=== PATIENT | male | born 1960 | race Caucasian/White ===

== ENCOUNTER 2017-05-08 14:44 | Emergency (ER) | payer OTHER ==
[~2017-05-08] VITALS: Ht 170.2 cm; Wt 149.2 kg
[~2017-05-08 14:44] MED LIST: ALLO300T2 PO; AMIO200T4 PO; AMOX875T PO; ASPI-435 PO; ATOR-24 PO; CHOL100027 PO; CRG25 PO; HYDR-5688 PO; LEVO100T7 PO; NITR0.4S UT; OFLO0.3D4 OTB; WARF5TAB90 PO
[2017-05-08 14:54] VITALS: TEMP 37.3; Ht 170.2 cm; Wt 149.2 kg
[2017-05-08] MEDS ORDERED: AMOX875T PO (17:09)
--- NOTE | 2017-05-08 17:10 | EMERGENCY ROOM VISIT NOTE ---
History Report prepared by Martha: Katherine Rodriguez Under the Supervision of: Dr. Sony Stubbs D.O. First contact with patient: 16:55 Chief Complaint: HEADACHE Stated Complaint: HOLLAND, COLD, FATIGUE History of Present Illness The patient is a 56 year old male who presents to the Emergency Room with complaints of a persistent headache for the past week. He currently rates his discomfort as a 2/10 in severity. The patient states that he has been battling sinus congestion and a runny nose recently. He states that he has additionally had a sore throat. The patient states that his symptoms were improving, but notes that he developed a massive headache that has worsened with bending and coughing. He states that today he felt diaphoretic and weak. The patient states that the last time he felt this way he went into atrial fibrillation. He states that he consulted his PCP today and was instructed to come to the emergency department for further evaluation and treatment. The patient states that he is on Coumadin and states that he has missed a few doses of his Coumadin. He denies being on any antibiotics for his congestion. The patient denies any chest pain. Source of History: patient Onset: past week Position: head Symptom Intensity: 2/10 Timing: other (persistent) Modifying Factors (Worsening): other (coughing and bending over) Associated Symptoms: + diaphoresis, + sorethroat, + weakness, No chest pain Note: Associated Symptoms: sinus congestion, runny nose Review of Systems See HPI for pertinent positives & negatives. A total of 10 systems reviewed and were otherwise negative. Past Medical & Surgical Medical Problems: (1) Anticoagulants,Lt,Current Use (2) Anxiety State Nos (3) Cardiomegaly (4) Cervicalgia (5) Chr Ischemic Hrt Dis Nos (6) Chronic Renal Failure (7) Coronary Atherosclerosis Of [place] Coronary Vessel (8) Depressive Disorder Nec (9) Gout (10) Hypertension Nos (11) Idiopathic cardiomegaly (12) Lumbar Disc Displacement (13) LV ANEURYSM (14) Nephrolithiasis (15) Obesity, morbid, BMI 40.0-49.9 (16) Obstructive Sleep Apnea (Adult) (Pediatric) (17) Old Myocardial Infarct (18) Pure Hypercholesterolem (19) Sleep apnea Family History DEMENTIA MOTHER LUNG CANCER FATHER Social History Smoking Status: Never Smoker Alcohol Use: none Marital Status: single Housing Status: lives with family Occupation Status: unemployed Current/Historical Medications Scheduled Allopurinol (Zyloprim), 300 MG PO DAILY Amiodarone Hcl (Cordarone), 200 MG PO DAILY Amoxicillin & Pot Clavulanate (Augmentin 875-125 mg), 875 MG PO BID Aspirin (Aspirin 81), 81 MG PO DAILY Atorvastatin (Lipitor), 40 MG PO DAILY Carvedilol (Carvedilol), 25 MG PO BID Cholecalciferol (Vitamin D 1000 Unit), 1,000 INTER.UNIT PO DAILY Levothyroxine Sodium (Levothyroxine Sodium), 1 TAB PO DAILY Nitroglycerin (Nitrostat), 0.4 MG UT PRN Ofloxacin (Otic) (Floxin Otic), 10 DROPS OTB BID Warfarin Sodium (Coumadin), 5 MG PO 5XWK Warfarin Sodium (Coumadin), 7.5 MG PO 2XWK Scheduled PRN Hydrocodone/Acetaminophen 5MG/325MG (Leoti 5MG/325MG), 1 TABLET PO Q4 PRN for Pain Allergies Coded Allergies: No Known Allergies (Verified Allergy, Unknown, 07/18/05) Physical Exam Vital Signs Date Time Temp Pulse Resp B/P (MAP) Pulse Ox O2 Delivery O2 Flow Rate FiO2 05/08/17 14:54 37.3 85 16 180/87 92 Room Air Physical Exam CONSTITUTIONAL/VITAL SIGNS: Reviewed / noted above. GENERAL: Non-toxic in appearance. INTEGUMENTARY: Warm, dry, and [place]. HEAD: Mild tenderness to percussion of the right frontal sinus. EYES: without scleral icterus or trauma. ENT/OROPHARYNX: clear and moist. LYMPHADENOPATHY/NECK: Is supple without lymphadenopathy or meningismus. RESPIRATORY: Lungs clear and equal. CARDIOVASCULAR: Regular rate and rhythm. GI/ABDOMEN: Soft and nontender. No organomegaly or pulsatile mass. No rebound or guarding. Normal bowel sounds. EXTREMITIES: Warm and well perfused. BACK: No CVA tenderness. NEUROLOGICAL: Intact without focal deficits. PSYCHIATRIC: normal affect. MUSCULOSKELETAL: Normally developed with good muscle tone. Medical Decision & Procedures ED Course 1655: Previous medical records were reviewed. The patient was evaluated in room A11B. A complete history and physical examination was performed. I discussed all the exam findings with him and I discussed the treatment plan. He verbalized complete understanding and agreement. He is ready to go home. Medical Decision Differential includes: Acute intracranial bleed, trauma, meningitis, encephalitis, increased intracranial pressure, mass or mass effect, facial or dental infection, temporal arteritis, CVA, TIA, acute hypertensive emergency, sinusitis, and carbon monoxide exposure. Medication Reconciliation: I attest that I have personally reviewed the patient' s current medication list. Patient was found to have a slightly elevated blood pressure due to circumstances. I do not believe that the patient requires hypertension monitoring. This is a 56-year-old male who presents to the ED with a chief complaint of a frontal headache. The patient states that he has had some sinus congestion for about 6 days. He also reports having a sore throat. The patient states that it seemed to be worse in the frontal region. The patient states he has not been taking his medication as he should for the past several days. He was worried about being in A. fib. He has a history of this. He denies any other significant symptoms. The patient's physical exam was unremarkable with exception of some posterior oropharyngeal erythema and some tenderness to percussion over the right frontal sinus. The patient's heart is regular rate and rhythm on auscultation confirms this as well. He is clinically not in A. fib. The patient was offered testing including a CT scan of the brain and sinuses but declined this. He states that he would just prefer to be placed on antibiotic and discharge. The patient was given a prescription for Augmentin. He is felt to be stable for discharge. Impression Primary Impression: Acute sinusitis Scribe Attestation The scribe's documentation has been prepared under my direction and personally reviewed by me in its entirety. I confirm that the note above accurately reflects all work, treatment, procedures, and medical decision making performed by me. Departure Information Dispostion Home / Self-Care Prescriptions Amoxicillin & Pot Clavulanate (Augmentin 875-125 mg) 1 Tab Tab 875 MG PO BID, #20 TAB Prov: Sony Stubbs D.O. 05/08/17 Referrals Titi Rodriguez M.D. (PCP) Patient Instructions My [facility] Additional Instructions Augmentin as prescribed. Take Tylenol/acetaminophen as needed for pain. Follow-up with your doctor for further care and evaluation in 1-2 days. Return to the emergency department for worsening or new symptoms or any concerns. You have been examined and treated today on an emergency basis only. This is not a substitute for, or an effort to provide, complete comprehensive medical care. It is impossible to recognize and treat all injuries or illnesses in a single emergency department visit. It is therefore important that you follow up closely with your doctor. Call as soon as possible for an appointment.
[2017-05-08 17:24] VITALS: BP 154/102; PULSE 81; O2SAT 93
[2017-05-08] MEDS ORDERED: ASPI81TA28 PO (17:25)
[2017-05-08] MEDS ORDERED: CARV25TA2 PO (17:25)
== END 2017-05-08 17:26 | disposition home or self-care (01) ==
LOC: C.EDB 14:45 → C.EDA 17:26
DX: J01.90 Acute sinusitis, unspecified (principal); I25.10 Atherosclerotic heart disease of native coronary artery without angina pectoris; I48.91 Unspecified atrial fibrillation; I12.9 Hypertensive chronic kidney disease with stage 1 through stage 4 chronic kidney disease, or unspecified chronic kidney disease; N18.9 Chronic kidney disease, unspecified; M10.9 Gout, unspecified; E78.00 Pure hypercholesterolemia, unspecified; I25.2 Old myocardial infarction; Z80.1 Family history of malignant neoplasm of trachea, bronchus and lung; Z81.8 Family history of other mental and behavioral disorders; Z79.01 Long term (current) use of anticoagulants; Z79.82 Long term (current) use of aspirin; Z79.899 Other long term (current) drug therapy

== ENCOUNTER 2019-09-17 08:38 | Inpatient (IN) ==
--- NOTE | 2019-09-08 09:26 | PAT Medication Instructions ---
Medication Instructions Date of Service September 08, 2019 Home Medications furosemide 20 mg PO DAILY PRN losartan 25 mg PO HS metoprolol tartrate 50 mg PO HS allopurinol 300 mg PO HS amiodarone 200 mg PO HS atorvastatin 40 mg PO HS cholecalciferol (vitamin D3) [Vitamin D3] 1,000 unit PO HS hydrocodone-acetaminophen 1 tab PO QID PRN levothyroxine 100 mcg PO HS warfarin 5 mg PO Q2D warfarin 7.5 mg PO Q2D ASK your prescriber and surgeon warfarin 5 mg PO Q2D warfarin 7.5 mg PO Q2D DO NOT take the morning of surgery furosemide 20 mg PO DAILY PRN Take morning of surgery hydrocodone-acetaminophen 1 tab PO QID PRN (okay to take up to 4 hours prior to surgery if needed) Take evening before surgery furosemide 20 mg PO DAILY PRN (if needed) losartan 25 mg PO HS metoprolol tartrate 50 mg PO HS allopurinol 300 mg PO HS amiodarone 200 mg PO HS atorvastatin 40 mg PO HS cholecalciferol (vitamin D3) [Vitamin D3] 1,000 unit PO HS hydrocodone-acetaminophen 1 tab PO QID PRN (if needed) levothyroxine 100 mcg PO HS Other Notes If you have any questions please call us at [phone] or [phone] or [phone] or [phone]
--- NOTE | 2019-09-08 13:07 | Anesthesiology Consultation ---
Date of Service September 08, 2019 Assessment & Plan (1) Encounter for pre-operative examination: - Awaiting review preop testing (labs, EKG, CXR). - Awaiting nuclear portion of stress test (PH Lissette 08/2018). - Awaiting surgeon-ordered PCP preop evaluation scheduled 09/08 (Dr. Rodriguez/[facility]). - Most recent pacer/ICD check 01/2019- arranging for updated pacer/ICD check prior to surgery. - Cardiology: 01/19/19: no acute cardiac complaints. Hx of nonischemic cardiomyopathy with associated apical aneurysm..stable chronic antiarrhythmic issues.. no defibrillator activation. - Check coags AM DOS Chart Review Chart Review: Pending: Refer to Additional Notes / Consult section and Patient seen in Pre Admission Testing Consults Requested If no new findings on 2017 stress test, can proceed without additional cardi ology eval. If there are abnormalities, please obtain cardiac clearance. Teaching & Discussion Pre-Anesthesia Teaching/Discussion Notes: Instructed NPO after midnight before surgery,except medications with 15 cc of water. Medication instructions provi ded according to the PAT guidelines. History Surgery Operation Date: 09/17/19 12:30 Proposed Procedures p L4-L5 Revision Decompression Fusion, Spinal Cord Monitoring - Marcial marroquin, Height/Weight Height: 5 ft 8 in Weight: 138.8 kg Allergies Allergy/AdvReac Type Severity Reaction Status Date / Time No Known Allergies Allergy Unknown Verified 09/07/19 08:04 Medications Home Medications Medication Instructions Recorded Confirmed Last Taken furosemide 20 mg PO DAILY PRN 08/18/19 09/07/19 Unknown losartan 25 mg PO HS 08/18/19 09/07/19 08/16/19 metoprolol tartrate 50 mg PO HS 08/18/19 09/07/19 08/16/19 allopurinol 300 mg PO HS 09/07/19 09/07/19 Unknown amiodarone 200 mg PO HS 09/07/19 09/07/19 Unknown atorvastatin 40 mg PO HS 09/07/19 09/07/19 Unknown cholecalciferol (vitamin D3) 1,000 unit PO HS 09/07/19 09/07/19 Unknown [Vitamin D3] hydrocodone-acetaminophen 1 tab PO QID PRN 09/07/19 09/07/19 Unknown levothyroxine 100 mcg PO HS 09/07/19 09/07/19 Unknown warfarin 5 mg PO Q2D 09/07/19 09/07/19 Unknown warfarin 7.5 mg PO Q2D 09/07/19 09/07/19 Unknown Past Medical History Medical History Afib CAD (coronary artery disease) non-obstructive CHF (congestive heart failure) hx/no recent issues Cardiomyopathy Chronic back pain Depression Gout History of kidney stones Hypertension Hypothyroidism Left ventricular aneurysm found around time of [place] (15+ years ago)- cardio monitoring Myocardial Infarction 15+ years ago- medically managed Presence of combination internal cardiac defibrillator (ICD) and pacemaker Implanted 2013 (follows with cardiology/Dr. Jaffe)- last check 01/2019 Sleep apnea CPAP Exercise / Class Metabolic Activity III < 4 Walking/Shop/Light housework (one flight of stairs (no chest pain, occasional SOB in setting of worsening back pain)) Past Family History Family History Father FHx: lung cancer Past Surgical History Surgical History H/O arthroscopic knee surgery multiple on bilateral knees H/O neck surgery History of cardiac cath 2011= NO STENTS History of cystoscopy History of esophagogastroduodenoscopy (EGD) History of laminectomy L4-L5 History of lithotripsy History of tonsillectomy Status post uvulopalatopharyngoplasty Past Anesthesia History No Hx of Anesthesia Complications and No Family Hx of Anesthesia Complications History of PONV No Hx of PONV and Hx of Motion Sickness Social History Smoking Status: Never smoker Do You Dip or Chew Tobacco: No Hx Alcohol Use: No Hx Substance Use: No substance use type: does not use Review of Systems Occasional reflux. Patient denies chest pain, shortness of breath, cough, wheezing, palpitations. Physical Exam Vital Signs VITALS BP 162/92 P 71 TEMP 98.1 SP02 93%RA RESP 18 PHYSICAL Full neck and c-spine range of motion. Full TMJ range of motion. TMD 4 finger breaths Mallampati Score 3 Dentition: intact, upper front bridge Lungs: clear throughout to auscultation Cardiac: regular rate and rhythm, no murmurs noted Spine: normal Carotid arteries: negative bruit Extremities: no edema Short, thick neck Testing Laboratory Results 09/08/19 13:25 09/08/19 13:25 PT 22.4 Seconds (9.0-12.0) H 09/08/19 13:25 INR 2.3 (0.9-1.1) H 09/08/19 13:25 APTT 38.2 Seconds (21.0-31.0) H 09/08/19 13:25 Urine Color Yellow 09/08/19 13:25 Urine Appearance Clear (Clear) 09/08/19 13:25 Urine pH 5.0 (4.5-7.5) 09/08/19 13:25 Ur Specific [place] 1.019 (1.000-1.030) 09/08/19 13:25 Urine Protein 1+ (Negative) H 09/08/19 13:25 Urine Glucose (UA) Negative (Negative) 09/08/19 13:25 Urine Ketones Negative (Negative) 09/08/19 13:25 Urine Nitrite Negative (Negative) 09/08/19 13:25 Ur Leukocyte Esterase Trace (Negative) H 09/08/19 13:25 Urine WBC (Auto) 10-30 /hpf (0-5) H 09/08/19 13:25 Urine RBC (Auto) 0-4 /hpf (0-4) 09/08/19 13:25 U Hyaline Cast (Auto) 1-5 /lpf (0-5) 09/08/19 13:25 U Epithel Cells (Auto) 5-10 /lpf (0-5) H 09/08/19 13:25 Urine Bacteria (Auto) Negative (Negative) 09/08/19 13:25 Blood Type O Positive 09/08/19 13:25 Antibody Screen NEGATIVE 09/08/19 13:25 Electrocardiogram Date: 09/08/19 Findings: + NSR @ (73) and + NSST changes Inferior TWI are new since 2013 Chest X-Ray Date: 09/08/19 Findings: + NAD (+pulmonary vascular congestion, but no evidence for pulmonary edema) and + cardiomegaly Echocardiogram Date: 04/11/14 EF 15-20% (subsequent PPM/ICD placed). Severe LVD. Aneurysmal LV septum/apical myocardium consistent with previous infarct. Aortic valve sclerosis mild. Mild MR. Technically difficult study. Stress Test Date: 08/24/18 Type: nuclear Lexiscan stress EKG not indicative of ischemia. Cardiac Catheterization Date: 03/27/12 Severe diffuse cardiomyopathy, ejection fraction 20 to 25% with focal infraapical aneurysm. 2. Moderate nonobstructive coronary disease with 40 to 50% narrowing within the mid right coronary artery and no other obstructive disease not correlating to a degree of the LV dysfunction. 3. Elevated left ventricular end-diastolic and pulmonary capillary wedge pressures, mild.
--- NOTE | 2019-09-08 13:58 | XRay Report ---
XR chest Pre-admission PA/Lat CLINICAL HISTORY: Preoperative chest COMPARISON STUDY: 04/11/2014 FINDINGS: The heart is borderline enlarged. There is a left subclavian dual-chamber pacer/defibrillat or. There is mild central vascular prominence without evidence for overt failure. There is no lobar c onsolidation. There are no pleural effusions.[ IMPRESSION: Borderline cardiac enlargement with mild central vascular prominence but no evidence of o vert failure. No evidence of focal pulmonary consolidation Electronically signed by: Sixto Fortune M.D. 09/08/2019 1:56 PM
[2019-09-08 14:29] LABS: Basophils # (auto) 0.02 K/uL (0-0.2); Basophils % (auto) 0.4 %; Eosinophils # (auto) 0.17 K/uL (0-0.5); Eosinophils % (auto) 3.3 %; Hematocrit (blood only) 42.3 % (42-52); Hemoglobin 14.2 g/dL (14.0-18.0); Immature Granulocytes # (auto) 0.02 K/uL (0.00-0.02); Immature Granulocytes % (auto) 0.4 %; Mean Corpuscular Hemoglobin 27.8 pg (25-34); Mean Corpuscular Hgb Conc 33.6 g/dL (32-36); Mean Corpuscular Volume 82.9 fL (80-100); Mean Platelet Volume 10.3 fL (7.4-10.4); Monocytes # (auto) 0.51 K/uL (0.11-0.59); Monocytes % (auto) 9.8 %; Neutrophils # (auto) 3.18 K/uL (1.4-6.5); Neutrophils % (auto) 61.1 %; Platelet Count 224 K/uL (130-400); RDW Coefficient of Variation 14.2 % (11.5-14.5); RDW Standard Deviation 43.3 fL (36.4-46.3)
[2019-09-08 14:37] LABS: BUN Creatinine Ratio 12.8 (10-20); Calcium 8.9 mg/dl (8.5-10.1); Creatinine Clr Calc Pharmacy 75.6 ml/min; Est GFR (African American) 61.8; Est GFR (Non-African American) 53.3; Potassium 4.5 mmol/L (3.5-5.1)
[2019-09-08 14:40] LABS: Appearance Urine Clear (Clear); Bacteria Urine Automated Negative (Negative); Bilirubin Urine Negative (Negative); Blood Urine Trace (Negative); Color Urine Yellow; Glucose Urine UA Negative (Negative); Ketones Urine Negative (Negative); Leukocyte Esterase Urine Trace (Negative); Nitrite Urine Negative (Negative); Protein Urine 1+ (Negative); RBC Urine Automated 0-4 /hpf (0-4); Specific Gravity Urine 1.019 (1.000-1.030); Urobilinogen Urine Negative (Negative)
[2019-09-08 14:42] LABS: INR 2.3 (0.9-1.1); Partial Thromboplastin Ratio 1.4; Partial Thromboplastin Time 38.2 Seconds (21.0-31.0); Prothrombin Time 22.4 Seconds (9.0-12.0)
[~2019-09-17 08:38] MED LIST changes: +ACETAMINOPHEN 500 MG TAB PO SCH; -ALLO300T2 PO; -AMIO200T4 PO; -AMOX875T PO; -ASPI-435 PO; -ATOR-24 PO; +CEFAZOLIN 3000MG 72.5 ML IV SCH; -CHOL100027 PO; -CRG25 PO; +CeleBREX 200 MG CAP PO SCH; +GABAPENTIN 600 MG DOSE PO SCH; -HYDR-5688 PO; +HYDROmorphone INJ 2 MG/ML SYR/VIAL ONE; -LEVO100T7 PO; +MIDAZOLAM HCL 1 MG/ML 2ML VIAL ONE; -NITR0.4S UT; -OFLO0.3D4 OTB; +SODIUM CHLORIDE 0.9% 1,000 ML IV SCH; -WARF5TAB90 PO; +fentaNYL citrate 100 MCG/2 ML VIAL ONE
--- NOTE | 2019-09-17 08:52 | History & Physical Bridge Note ---
Date of Service September 17, 2019 History & Physical Bridge Note I have examined the patient, reviewed the History & Physical and in the interval since the performance of the History & Physical I have noted the following changes of clinical significance: no changes noted
--- NOTE | 2019-09-17 08:53 | History & Physical Report ---
Date of Service September 17, 2019 Assessment & Plan (1) Neurogenic claudication due to lumbar spinal stenosis: Revision decompression fusion L4-L5 Present on Admission?: Yes History of Present Illness Chief Complaint: Back and leg pain Primary Care Provider: Titi Rodriguez MD This is a 5-year-old male well-known to us that presents with chronic persistent back and leg pain. Failing extensive course of nonoperative care is here for surgical intervention. Allergies Allergy/AdvReac Type Severity Reaction Status Date / Time No Known Allergies Allergy Unknown Verified 09/07/19 08:04 Home Medications Home Medications Medication Instructions Recorded Confirmed Type furosemide 20 mg PO DAILY PRN 08/18/19 09/07/19 History losartan 25 mg PO HS 08/18/19 09/07/19 History metoprolol tartrate 50 mg PO HS 08/18/19 09/07/19 History allopurinol 300 mg PO HS 09/07/19 09/07/19 History amiodarone 200 mg PO HS 09/07/19 09/07/19 History atorvastatin 40 mg PO HS 09/07/19 09/07/19 History cholecalciferol (vitamin D3) 1,000 unit PO HS 09/07/19 09/07/19 History [Vitamin D3] hydrocodone-acetaminophen 1 tab PO QID PRN 09/07/19 09/07/19 History levothyroxine 100 mcg PO HS 09/07/19 09/07/19 History warfarin 5 mg PO Q2D 09/07/19 09/07/19 History warfarin 7.5 mg PO Q2D 09/07/19 09/07/19 History Past Med/Surg History Medical History (Updated 09/17/19 @ 08:53 by Marcial Zepeda DO) Afib CAD (coronary artery disease) non-obstructive Cardiomyopathy CHF (congestive heart failure) hx/no recent issues Chronic back pain Depression Gout History of kidney stones Hypertension Hypothyroidism Left ventricular aneurysm found around time of [place] (15+ years ago)- cardio monitoring Myocardial Infarction 15+ years ago- medically managed Presence of combination internal cardiac defibrillator (ICD) and pacemaker Implanted 2013 (follows with cardiology/Dr. Jaffe)- last check 01/2019 Sleep apnea CPAP Surgical History H/O arthroscopic knee surgery multiple on bilateral knees H/O neck surgery History of cardiac cath 2012= NO STENTS History of cystoscopy History of esophagogastroduodenoscopy (EGD) History of laminectomy L4-L5 History of lithotripsy History of tonsillectomy Status post uvulopalatopharyngoplasty Family History Father FHx: lung cancer Social History Preferred Language: Mongolian Communication Ability: Effective Tannery Gummer Required: No Beliefs That Will Affect Care: None Current Living Situation: Alone Other Information That Helps Us Care for You: No Feels Safe at Home: Yes Safety Concerns: Feels Safe At This Time Smoking Status: Never smoker Do You Dip or Chew Tobacco: No ; Second Hand Exposure: No ; Tobacco Cessation Education Requested by Patient: No Hx Alcohol Use: No Hx Substance Use: No Physical Exam Physical Exam: Patient is alert and oriented neurologically intact.
[2019-09-17 09:28] LABS: INR 1.1 (0.9-1.1); Partial Thromboplastin Time 27.1 Seconds (21.0-31.0)
[2019-09-17] MEDS ORDERED: fentaNYL citrate 100 MCG/2 ML VIAL ONE ×4 (10:42→11:35)
[2019-09-17] MEDS ORDERED: HYDROmorphone INJ 2 MG/ML SYR/VIAL ONE ×2 (10:43→12:21)
[2019-09-17] MEDS ORDERED: BUPIVACAINE/EPINEPHRINE 0.5% MPF 1:200,000 10 ML VIAL INJ PRN (10:56)
[2019-09-17] MEDS ORDERED: BACITRACIN INJ 50,000 UNIT VIAL IR ONE (10:57)
[2019-09-17] MEDS ORDERED: FLOSEAL HEMOSTATIC MATRIX 10ML TOP ONE (10:57)
[2019-09-17] MEDS ORDERED: ePHEDrine sulfate 50 MG/ML SYR ONE (11:02)
[2019-09-17] MEDS ORDERED: ROCURONIUM BROMIDE 10 MG/ML 5 ML VIAL ONE (11:02)
[2019-09-17] MEDS ORDERED: NEOSTIGMINE METHYLSULFATE 1 MG/ML 10ML VIAL ONE (11:02)
[2019-09-17] MEDS ORDERED: GLYCOPYRROLATE 0.2 MG/ML VIAL ONE (11:02)
[2019-09-17] MEDS ORDERED: PROPOFOL IV EMULSION 10 MG/ML 20 ML VIAL IV ONE (11:02)
[2019-09-17] MEDS ORDERED: PHENYLEPHRINE HCL 10 MG/ML VIAL ONE (11:02)
[2019-09-17] MEDS ORDERED: ONDANSETRON INJ 2 MG/ML 2 ML VIAL ONE (11:02)
[2019-09-17] MEDS ORDERED: DEXAMETHASONE SOD INJ 4 MG/ML VIAL ONE (11:02)
[2019-09-17] MEDS ORDERED: PHENYLEPHRINE 100MCG/ML 5ML SYR ONE (11:02)
[2019-09-17] MEDS ORDERED: LIDOCAINE HCL 2% 2 ML VIAL/AMP(20MG/ML) INFIL ONE (11:02)
[2019-09-17] MEDS ORDERED: ePHEDrine sulfate 50 MG/ML AMP ONE (11:02)
[2019-09-17] MEDS ORDERED: ONDANSETRON INJ 2 MG/ML 2 ML VIAL IV PRN ×2 (11:05→13:58)
[2019-09-17] MEDS ORDERED: ePHEDrine sulfate 50 MG/ML AMP IV PRN (11:05)
[2019-09-17] MEDS ORDERED: ATROPINE SULFATE 0.1 MG/ML 10ML SYR IV PRN (11:05)
--- NOTE | 2019-09-17 11:05 | Procedure Note ---
Procedure Note Date of Service September 17, 2019 Radial arterial line placed in OR 4 at time of induction in preparation for lumbar surgery with Dr. Zepeda. Left wrist prepped with chlorhexidine and draped with sterile towels. 20 G angiocath placed under sterile technique utilizing sterile gloves, surgical hats and masks. Catheter threaded using seldinger technique with return of pulsatile, bright red blood. Site covered with occlusive dressing and taped in place. Waveform consistent with correct arterial placement. After placement, fingers of procedural hand had normal perfusion. Patient tolerated procedure well without complications. Gloria Vigil MD, PhD Anesthesiologist Coding
[2019-09-17] MEDS ORDERED: EPINEPHrine INJ 1 MG/ML AMP ONE (11:39)
--- NOTE | 2019-09-17 12:18 | Operative Report ---
Post Operative Report Pre & Post Diagnosis Operation Date: 09/17/19 10:05 Pre-Op Diagnosis: LUMBAR INTERVERTEBRAL DISC DISORDERS W/RADICULOPATHY Post-Op Diagnosis: LUMBAR INTERVERTEBRAL DISC DISORDERS W/RADICULOPATHY I identified the patient and participated in the time-out.: Yes Procedure Operation Date: 09/17/19 10:05 Actual Procedures #1 revision decompression with bilateral medial facetectomies and foraminotomies L3-4 L4-5. #2 posterior spinal fusion L for 5 per #3 placed posterior instrumentation L4-5 per #4 interbody fusion L4-5. #5 placement of titanium 14 x 26 mm cage at L4-5 per #6 placement of locally harvested morselized autograft in the posterior lateral gutters. #7 placement infuse collagen sponge, master graft in the posterior lateral gutters and ostial amp and interbody space. Surgeon Marcial Zepeda, Software Project Engineer Mayda Curran Estimated Blood Loss 425 Findings See Below The patient is 5 foot 8 inches tall weighing over 138 kg with a BMI in excess of 46. The patient's body habitus did add significant technical difficulty throughout the procedure from positioning through exposure instrumentation require her deepest retractors and longus instruments in order to perform the procedure. This added at least 50% increase in operative time. Specimens None Indications This is a 59-year-old male well-known to me to the presents with worsening back and leg symptoms after failing extensive course of nonoperative care is here for surgical intervention. Description of Procedure Patient was met with identified and informed consent obtained. Patient was then taken to the operative suite underwent intubation placed in the prone position the Tong table on top of the Michael frame. All bony prominences well-padded eyes inspected to ensure no external pressure placed upon. This point the lumbar spine was prepped and draped in a normal sterile fashion. Sharp dissection with the assistance of Bovie cautery was performed down to and exposing the remaining lamina and transverse processes of L4-L5 bilaterally. Self-retaining retractors placed. Then performed revision complete laminectomy of L4 partial laminectomy of L3 including bilateral medial facetectomies foraminotomies addressing all stenosis. Placed pedicle screws in L4 and L5 bilaterally with assistance of fluoroscopy the process otto placed by way of a transforaminal approach and left complete discectomy was performed including removal of all herniated fragments for additional decompression of the traversing root. Endplates were then curetted to subcortical bleeding bone and a 14 x 26 mm titanium cage filled with ostium bone graft tapped in position. The rods were then compressed locked in final position bilaterally. The transverse processes of L4 and L5 bur to subcortical being bone. Infuse collagen sponge master graft and local autograft placed in the posterior lateral gutters. 15 round MEGAN drain inserted. The incision was then closed with 1 Vicryl in the fascia 2-0 Vicryl subtenons in 4 Monocryl for final skin closure. Steri-Strips dressings placed. Patient awakened taken to PACU stable disc. Please note Mayda Curran present all the entire procedure involved in patient positioning complex portions of the surgery and final skin closure. Lastly spinal cord monitoring was utilized throughout the procedure no changes noted. I attest to the content of the Intraoperative Record and any orders documented therein. Any exceptions are noted below.
[2019-09-17] MEDS ORDERED: ESMOLOL HCL INJ 10 MG/ML 10ML VIAL IV ONE (12:41)
[2019-09-17] MEDS: fentaNYL citrate 100 MCG/2 ML VIAL IV PRN ×2 (12:45→12:50)
--- NOTE | 2019-09-17 12:56 | Fluoroscopy Report ---
FL lumbar spine 2-3V CLINICAL HISTORY: L4-5 REVISION DECOMPRESSION/FUSION COMPARISON STUDY: CT lumbar myelogram August 18, 2019. FLUOROSCOPY TIME: 28.2 seconds. FLUOROSCOPIC IMAGES: 2 FINDINGS: These images demonstrate an L4-L5 discectomy with interbody spacer placement. Posterior dec ompression is noted. Bilateral pedicle screws at the L4 and L5 levels are noted. IMPRESSION: Fluoroscopic images demonstrating an L4-L5 discectomy, posterior disc decompression and bilateral pedicle screw fusion. Electronically signed by: Venkat Gomez M.D. 09/17/2019 12:55 PM
[2019-09-17] MEDS: HYDROmorphone INJ 2 MG/ML SYR/VIAL IV PRN ×2 (12:57→13:03)
--- NOTE | 2019-09-17 13:06 | Anesthesiology Progress Note ---
Date of Service September 17, 2019 Anesthesia Post Procedure Vital Signs Vital Signs: Temp Pulse Pulse Resp BP Pulse Ox 09/17/19 12:36 37.4 C 79 17 154/95 H 97 09/17/19 09:11 36.6 C 76 20 164/87 H 95 Pain Intensity Left Hip: Pain Intensity: 6 Back: Pain Intensity: 7 Transfer of Care Handoff Completed per policy Notes Mental Status: alert / awake / arousable and participated in evaluation Patient Amnestic to Procedure: Yes Nausea / Vomiting: adequately controlled Pain: adequately controlled Airway Patency, RR, SpO2: stable & adequate BP & HR: stable & adequate Hydration State: stable & adequate Anesthetic Complications: no major complications apparent and Pt Satisfied with anesthetic care
[2019-09-17] MEDS ORDERED: SOD PHOSPHATE/SOD BIPHOSPHATE ENEMA 132 ML BTL PR PRN (13:58)
[2019-09-17] MEDS ORDERED: BISACODYL 10 MG SUPP PR PRN (13:58)
[2019-09-17] MEDS ORDERED: FAMOTIDINE 20 MG TAB PO PRN (13:58)
[2019-09-17] MEDS ORDERED: PROMETHAZINE HCL 12.5 MG in SODIUM CHLORIDE 0.9% 50 ML IV PRN (13:58)
[2019-09-17] MEDS ORDERED: LORazepam 0.5 MG/1 ML VIAL IV PRN (13:58)
[2019-09-17] MEDS ORDERED: ONDANSETRON 4 MG OD TAB PO PRN (13:58)
[2019-09-17] MEDS ORDERED: ALUMINUM/MAGNESIUM SUSP 30 ML UDC PO PRN (13:58)
[2019-09-17] MEDS ORDERED: ACETAMINOPHEN 1,000 MG/100 ML VIAL IV PRN (13:58)
[2019-09-17] MEDS ORDERED: LORazepam 0.5 MG TAB PO PRN (13:58)
[2019-09-17] MEDS ORDERED: ACETAMINOPHEN 500 MG TAB PO PRN (13:58)
[2019-09-17] MEDS ORDERED: HYDROmorphone INJ 0.5 MG/0.5 ML SYR IV PRN (13:58)
[2019-09-17] MEDS ORDERED: METOCLOPRAMIDE HCL INJ 5 MG/ML 2 ML VIAL IV PRN (13:58)
[2019-09-17] MEDS ORDERED: TRAMADOL HCL 50 MG TABLET PO PRN (13:58)
[2019-09-17] MEDS ORDERED: NALOXONE HCL 0.4 MG/1 ML VIAL/CARP IV PRN (13:58)
[2019-09-17] MEDS ORDERED: FUROSEMIDE 20 MG TAB PO PRN (13:58)
[2019-09-17] MEDS ORDERED: DO NOT ADMINISTER FLU VACCINE PRN (13:58)
[2019-09-17] MEDS ORDERED: MAGNESIUM HYDROXIDE SUSP 30 ML UDC PO PRN (13:58)
[2019-09-17] MEDS ORDERED: DO NOT ADMINISTER PNEUMOCOCCAL VACCINE PRN (13:58)
[2019-09-17] MEDS: LACTATED RINGER'S 1,000 ML IV SCH (14:22)
--- NOTE | 2019-09-17 14:49 | Hospitalist Consultation ---
Date of Consultation September 17, 2019 Assessment & Plan (1) Essential hypertension: Currently blood pressure is controlled Continue losartan/metoprolol Monitor blood pressure per protocol (2) Neurogenic claudication due to lumbar spinal stenosis: Status post revision decompression with bilateral medial facetectomies and foraminotomies L3-4, L4-5, posterior1 revision decompression with bilateral medial facetectomies and foraminotomies L3-4 L4-5. #2 posterior spinal fusion L for 5 per #3 placed posterior instrumentation L4-5 per #4 interbody fusion L4-5. #5 placement of titanium 14 x 26 mm cage at L4-5 per #6 placement of locally harvested morselized autograft in the posterior lateral gutters. #7 placement infuse collagen sponge, master graft in the posterior lateral gutters and ostial amp and interbody space. Procedure went uneventful Patient has no nuchal (3) Atrial fibrillation: Continue rate controlled with beta-quin and amiodarone Hold Coumadin until cleared by primary surgical team (4) CHF (congestive heart failure): Type and chronicity is unspecified Appears to be compensated anyway After he passes the postoperative phase of hypotension and dehydration, home dose Lasix should be started History of Present Illness Reason for Consultation: Medical management Requesting Physician: Dr. Marcial Zepeda Attending Physician: Marcial Zepeda, History of Present Illness 59 years old man with past medical history of essential hypertension, atrial fibrillation, hypothyroidism, ventricular aneurysm and chronic lower back pain. Patient lower back pain continued to get progressively worse and he started to have neurogenic claudication due to lumbar stenosis. He does have history of L4-L5 laminectomy, also has history of remote myocardial infarction 15 years ago at that time he developed ventricular aneurysm and was started on Coumadin. Patient was admitted today for an elective revision of laminectomy, procedure went uneventful and we were consulted for medical comanagement Allergies Allergy/AdvReac Type Severity Reaction Status Date / Time No Known Allergies Allergy Unknown Verified 09/17/19 08:54 Home Medications Home Medications Medication Instructions Recorded Confirmed Type furosemide 20 mg PO DAILY PRN 08/18/19 09/17/19 History losartan 25 mg PO HS 08/18/19 09/17/19 History metoprolol tartrate 50 mg PO HS 08/18/19 09/17/19 History allopurinol 300 mg PO HS 09/07/19 09/17/19 History amiodarone 200 mg PO HS 09/07/19 09/17/19 History atorvastatin 40 mg PO HS 09/07/19 09/17/19 History cholecalciferol (vitamin D3) 1,000 unit PO HS 09/07/19 09/17/19 History [Vitamin D3] hydrocodone-acetaminophen 1 tab PO QID PRN 09/07/19 09/17/19 History levothyroxine 100 mcg PO HS 09/07/19 09/17/19 History warfarin 5 mg PO Q2D 09/07/19 09/17/19 History warfarin 7.5 mg PO Q2D 09/07/19 09/17/19 History aspirin [Aspirin Low Dose] 81 mg PO DAILY 09/17/19 09/17/19 History Patient History Family History Father FHx: lung cancer Social History Preferred Language: Ukrainian Communication Ability: Effective [employer] Required: No Beliefs That Will Affect Care: None Current Living Situation: Alone Other Information That Helps Us Care for You: No Feels Safe at Home: Yes Safety Concerns: Feels Safe At This Time Smoking Status: Never smoker Do You Dip or Chew Tobacco: No ; Second Hand Exposure: No ; Tobacco Cessation Education Requested by Patient: No Hx Alcohol Use: No Hx Substance Use: No Review of Systems Review of Systems: Review of system Constitutional: No fever / no chills / no sweats / no weakness / no fatigue Eyes: no blurring of vision / no eye pain / no discharge / no redness ENT: no hearing loss / no epistaxis /no swallowing problems Respiratory: no cough / no wheezing / no SOB / no hemoptysis Cardiovascular: no Chest pain / no lower extremity edema / no palpitation Abdomen: no pain / no nausea / no vomiting / no constipation Musculoskeletal: no joint pain / no muscle pain / no joint swelling Genitourinary: no dysuria / no incontinence / no urinary retention Neurologic: no focal weakness / no numbness/tingling / no ataxia Psychiatric: no depression symptoms / no anxiety / no insomnia Endocrine: no excessive thirst / no excessive urination Hematologic: no abnormal bleeding / no bruising / no LN swelling Skin: No rash / no pallor Physical Exam Physical Exam: Physical examination General patient appears to be obese, comfortable, not in acute distress HEENT: Atraumatic , normocephalic /no jaundice /no pallor /anicteric /no dry mucous membrane /normal external ear inspection Neck: Supple /no swelling /central trach Heart: S1/S2 normal/regular rate and rhythm/no gallop /no rub /no murmur Lungs: Clear to auscultation bilaterally/normal chest with expansion/no rhonchi/no rales/no wheezing/no use of accessory muscles of respiration Abdomen: Soft/nontender/no guarding/no rebound/no organomegaly/no pulsatile mass Musculoskeletal: No swelling/no edema/no tenderness/normal range of motion Neuro exam: Awake alert oriented 3/cranial nerves II through XII appear to be intact/sensation intact/moves all extremities/no abnormal movements Psychiatric evaluation: No depressed mood/normal affect Skin: No rash on exposed skin area/no erythema Extremity: Normal pulse/no pitting edema/no clubbing or cyanosis, able to move his toes well, no signs of ischemia Endocrine/lymphatic: No obvious lymphadenopathy /no lymphedema Results & Data Vital Signs (Past 12 Hours) Vital Signs Temp Pulse Pulse Pulse Resp BP BP 09/17/19 14:42 87 18 167/81 H 09/17/19 14:10 76 18 123/72 09/17/19 14:08 36.7 C 75 18 155/89 H 09/17/19 13:25 37.4 C 74 17 153/91 H 09/17/19 13:21 75 24 09/17/19 13:20 73 14 161/91 H 09/17/19 13:16 78 14 09/17/19 13:15 78 17 144/91 H 09/17/19 13:11 76 12 09/17/19 13:10 77 12 157/98 H 09/17/19 13:06 78 12 09/17/19 13:05 74 17 146/94 H 09/17/19 13:01 76 7 L 147/93 H 09/17/19 13:00 78 9 L 09/17/19 12:56 78 15 09/17/19 12:55 78 14 158/100 H 09/17/19 12:51 78 12 09/17/19 12:50 77 12 156/90 H 09/17/19 12:46 79 13 09/17/19 12:45 79 12 135/95 09/17/19 12:41 81 13 151/96 H 09/17/19 12:40 89 15 09/17/19 12:37 78 14 09/17/19 12:36 37.4 C 78 79 13 154/95 H 154/95 H 09/17/19 09:11 36.6 C 76 20 164/87 H Pulse Ox 09/17/19 14:42 98 09/17/19 14:10 96 09/17/19 14:08 93 09/17/19 13:25 95 09/17/19 13:21 94 09/17/19 13:20 92 09/17/19 13:16 93 09/17/19 13:15 91 09/17/19 13:11 94 09/17/19 13:10 96 09/17/19 13:06 95 09/17/19 13:05 92 09/17/19 13:01 98 09/17/19 13:00 97 09/17/19 12:56 98 09/17/19 12:55 97 09/17/19 12:51 96 09/17/19 12:50 97 09/17/19 12:46 98 09/17/19 12:45 97 09/17/19 12:41 97 09/17/19 12:40 98 09/17/19 12:37 97 09/17/19 12:36 94 09/17/19 09:11 95 PG Care Time/CCT Total # of Minutes Spent Total Time Spent with Patient: Total time spent is greater than 50% in coordination of care (as documented) at patient's floor/unit and/or counseling patient:
[2019-09-17] MEDS: OXYCODONE HCL IR 5 MG TAB (IMMEDIATE RELEASE) PO PRN (15:11)
[2019-09-17] MEDS: CEFAZOLIN 2000MG 2,000 MG/15 ML SYR IV SCH (17:44)
[2019-09-17] MEDS: CHOLECALCIFEROL 1,000 UNITS TAB PO SCH (17:44)
[2019-09-17] MEDS: HYDROmorphone INJ 1 MG/ML SYRINGE IV PRN (17:45)
[2019-09-17] MEDS: METOPROLOL TARTRATE 50 MG TAB PO SCH (20:08)
[2019-09-17] MEDS: ALLOPURINOL 300 MG TAB PO SCH (20:08)
[2019-09-17] MEDS: LEVOTHYROXINE SODIUM 100 MCG TABLET PO SCH (20:08)
[2019-09-17] MEDS: ATORVASTATIN 40 MG TAB PO SCH (20:08)
[2019-09-17] MEDS: AMIODARONE 200 MG TAB PO SCH (20:08)
[2019-09-17] MEDS: DOCUSATE SODIUM/SENNA 50/8.6MG TAB PO SCH (20:08)
[2019-09-17] MEDS ORDERED: LOSARTAN POTASSIUM 25 MG TAB PO SCH (21:00)
[2019-09-18] MEDS: LACTATED RINGER'S 1,000 ML IV SCH (00:49)
[2019-09-18] MEDS: OXYCODONE HCL IR 5 MG TAB (IMMEDIATE RELEASE) PO PRN ×3 (00:49→21:51)
[2019-09-18] MEDS: CEFAZOLIN 2000MG 2,000 MG/15 ML SYR IV SCH (02:08)
[2019-09-18] MEDS: POLYETHYLENE (MIRALAX) 17 GM PACK PO SCH ×4 (06:07→23:35)
[2019-09-18 06:51] LABS: Hematocrit (blood only) 37.8 % (42-52); Hemoglobin 12.1 g/dL (14.0-18.0); Immature Granulocytes # (auto) 0.02 K/uL (0.00-0.02); Immature Granulocytes % (auto) 0.2 %; Lymphocytes # (auto) 0.66 K/uL (1.2-3.4); Lymphocytes % (auto) 7.2 %; Mean Corpuscular Volume 84.4 fL (80-100); Mean Platelet Volume 10.5 fL (7.4-10.4); Monocytes # (auto) 0.68 K/uL (0.11-0.59); Monocytes % (auto) 7.4 %; Neutrophils # (auto) 7.83 K/uL (1.4-6.5); Neutrophils % (auto) 85.2 %; Platelet Count 228 K/uL (130-400); RDW Coefficient of Variation 14.5 % (11.5-14.5); RDW Standard Deviation 44.4 fL (36.4-46.3); Red Blood Count 4.48 M/uL (4.7-6.1); White Blood Count 9.19 K/uL (4.8-10.8)
[2019-09-18 07:21] LABS: BUN Creatinine Ratio 18.4 (10-20); Creatinine Clr Calc Pharmacy 63.1 ml/min; Est GFR (African American) 49.7; Est GFR (Non-African American) 42.9; Potassium 4.4 mmol/L (3.5-5.1)
[2019-09-18 07:22] LABS: Albumin Level 3.2 gm/dl (3.4-5.0); Calcium 8.9 mg/dl (8.5-10.1)
[2019-09-18 07:24] LABS: Albumin Globulin Ratio 0.8 (0.9-2); Bilirubin,Total 0.4 mg/dl (0.2-1); Globulin 4.2 gm/dl (2.5-4.0); Total Protein 7.4 gm/dl (6.4-8.2)
[2019-09-18] MEDS ORDERED: Nursing to Pharmacy Communication ONE (07:51)
--- NOTE | 2019-09-18 08:13 | Anesthesiology Progress Note ---
Date of Service September 18, 2019 Anesthesia Post Procedure Vital Signs Vital Signs: Temp Pulse Pulse Pulse Pulse Resp BP 09/18/19 08:00 36.5 C 76 21 09/18/19 03:50 36.8 C 81 17 09/17/19 23:43 36.8 C 16 09/17/19 20:14 36.6 C 17 09/17/19 17:41 77 09/17/19 16:35 36.5 C 79 14 09/17/19 15:34 36.6 C 74 14 09/17/19 14:42 87 18 09/17/19 14:10 76 18 09/17/19 14:08 36.7 C 75 18 09/17/19 13:25 37.4 C 74 17 09/17/19 13:21 75 24 09/17/19 13:20 73 14 161/91 H 09/17/19 13:16 78 14 09/17/19 13:15 78 17 144/91 H 09/17/19 13:11 76 12 09/17/19 13:10 77 12 157/98 H 09/17/19 13:06 78 12 09/17/19 13:05 74 17 146/94 H 09/17/19 13:01 76 7 L 147/93 H 09/17/19 13:00 78 9 L 09/17/19 12:56 78 15 09/17/19 12:55 78 14 158/100 H 09/17/19 12:51 78 12 09/17/19 12:50 77 12 156/90 H 09/17/19 12:46 79 13 09/17/19 12:45 79 12 135/95 09/17/19 12:41 81 13 151/96 H 09/17/19 12:40 89 15 09/17/19 12:37 78 14 09/17/19 12:36 37.4 C 78 79 13 154/95 H 09/17/19 09:11 36.6 C 76 20 BP Pulse Ox 09/18/19 08:00 131/78 92 09/18/19 03:50 127/79 94 09/17/19 23:43 117/75 96 09/17/19 20:14 145/83 H 95 09/17/19 17:41 136/88 93 09/17/19 16:35 128/77 96 09/17/19 15:34 129/76 97 09/17/19 14:42 167/81 H 98 09/17/19 14:10 123/72 96 09/17/19 14:08 155/89 H 93 09/17/19 13:25 153/91 H 95 09/17/19 13:21 94 09/17/19 13:20 92 09/17/19 13:16 93 09/17/19 13:15 91 09/17/19 13:11 94 09/17/19 13:10 96 09/17/19 13:06 95 09/17/19 13:05 92 09/17/19 13:01 98 09/17/19 13:00 97 09/17/19 12:56 98 09/17/19 12:55 97 09/17/19 12:51 96 09/17/19 12:50 97 09/17/19 12:46 98 09/17/19 12:45 97 09/17/19 12:41 97 09/17/19 12:40 98 09/17/19 12:37 97 09/17/19 12:36 154/95 H 94 09/17/19 09:11 164/87 H 95 Pain Intensity Left Hip: Pain Intensity: 6 Back: Pain Intensity: 5 Notes Mental Status: alert / awake / arousable and participated in evaluation Nausea / Vomiting: adequately controlled Pain: adequately controlled Airway Patency, RR, SpO2: stable & adequate BP & HR: stable & adequate Hydration State: stable & adequate Anesthetic Complications: no major complications apparent and Pt Satisfied with anesthetic care
[2019-09-18] MEDS: CHOLECALCIFEROL 1,000 UNITS TAB PO SCH (08:27)
[2019-09-18] MEDS: ASPIRIN 81 MG ECTAB PO SCH (08:27)
--- NOTE | 2019-09-18 11:10 | Orthopedic Progress Note ---
Date of Service September 18, 2019 Assessment & Plan (1) Neurogenic claudication due to lumbar spinal stenosis: This time would like to continue physical therapy monitor his MEGAN output hopefully discharge home this weekend. Present on Admission?: Yes Subjective Back pain is controlled leg symptoms markedly improved. Physical Exam Physical Exam: Exam is good strength testing appears comfortable. Results & Data Vital Signs (Past 12 Hours) Vital Signs Temp Pulse Pulse Resp BP Pulse Ox 09/18/19 08:00 36.5 C 76 21 131/78 92 09/18/19 03:50 36.8 C 81 17 127/79 94 09/17/19 23:43 36.8 C 16 117/75 96
--- NOTE | 2019-09-18 11:11 | Hospitalist Progress Note ---
Date of Service September 18, 2019 Assessment & Plan (1) Essential hypertension: stable Continue metoprolol - losartan held for elevated creatinine repeat prp am (2) Neurogenic claudication due to lumbar spinal stenosis: Status post revision decompression with bilateral medial facetectomies and foraminotomies L3-4, L4-5, posterior1 revision decompression with bilateral medial facetectomies and foraminotomies L3-4 L4-5. #2 posterior spinal fusion L for 5 per #3 placed posterior instrumentation L4-5 per #4 interbody fusion L4-5. #5 placement of titanium 14 x 26 mm cage at L4-5 per #6 placement of locally harvested morselized autograft in the posterior lateral gutters. #7 placement infuse collagen sponge, master graft in the posterior lateral gutters and ostial amp and interbody space. - monitor for acute blood loss - pain management, dvt prophylaxis per primary (3) Atrial fibrillation: Continue rate controlled with beta-quin and amiodarone Hold Coumadin until cleared by primary surgical team (4) CHF (congestive heart failure): Type and chronicity is unspecified Appears to be compensated anyway Hold home lasix for increase in creatinine (5) Creatinine elevation: 1.7 today up from 1.42 preop Hold home lasix and losartan prp am Subjective Mr. Trujillo feels well, his only complaint is some pain at the surgical site ROS Constitutional: no chills, aches, sweats or fever Respiratory: no sob,cough, sputum, or wheezing Cardiac: no chest pain, palpitations, edema, orthopnea or lightheadedness GI: no abdominal pain, nausea, vomiting, diarrhea or constipation : no dysuria or hesitancy Extremities: no joint pain or weakness Skin: no rash All other systems reviewed and negative Physical Exam Physical Exam: General: no distress Eyes: normal inspection, PERLL Respiratory: chest non tender, clear to auscultation, normal breath sounds, no respiratory distress, no accessory muscle use Cardiac: regular rate and rhythm, no rub or gallop, no murmur, no edema, no jvd GI/: active bowel sounds, no abd pain or tenderness, soft, non distended Extremities: normal range of motion, normal strength, non tender Neuro/Psych: alert and oriented x 3, normal mood and affect Skin: normal color, dry Results & Data Vital Signs (Past 12 Hours) Vital Signs Temp Pulse Pulse Resp BP Pulse Ox 11/15/19 08:00 36.5 C 76 21 131/78 92 09/18/19 03:50 36.8 C 81 17 127/79 94 09/17/19 23:43 36.8 C 16 117/75 96 PG Care Time/CCT Total # of Minutes Spent Total Time Spent with Patient: Total time spent is greater than 50% in coordination of care (as documented) at patient's floor/unit and/or counseling patient:
[2019-09-18] MEDS: HYDROmorphone INJ 1 MG/ML SYRINGE IV PRN (17:08)
[2019-09-18] MEDS: AMIODARONE 200 MG TAB PO SCH (20:43)
[2019-09-18] MEDS: ATORVASTATIN 40 MG TAB PO SCH (20:43)
[2019-09-18] MEDS: LEVOTHYROXINE SODIUM 100 MCG TABLET PO SCH (20:43)
[2019-09-18] MEDS: DOCUSATE SODIUM/SENNA 50/8.6MG TAB PO SCH (20:43)
[2019-09-18] MEDS: ALLOPURINOL 300 MG TAB PO SCH (20:43)
[2019-09-18] MEDS: METOPROLOL TARTRATE 50 MG TAB PO SCH (20:44)
[2019-09-19] MEDS: POLYETHYLENE (MIRALAX) 17 GM PACK PO SCH (06:05)
[2019-09-19 06:29] LABS: BUN Creatinine Ratio 20.7 (10-20); Calcium 8.5 mg/dl (8.5-10.1); Creatinine Clr Calc Pharmacy 72.9 ml/min; Est GFR (African American) 59.2; Est GFR (Non-African American) 51.1; Potassium 3.9 mmol/L (3.5-5.1)
[2019-09-19] MEDS: ASPIRIN 81 MG ECTAB PO SCH (07:58)
[2019-09-19] MEDS: CHOLECALCIFEROL 1,000 UNITS TAB PO SCH (07:58)
[2019-09-19] MEDS: OXYCODONE HCL IR 5 MG TAB (IMMEDIATE RELEASE) PO PRN ×3 (08:00→22:41)
--- NOTE | 2019-09-19 08:23 | Orthopedic Progress Note ---
Date of Service September 19, 2019 Assessment & Plan (1) Neurogenic claudication due to lumbar spinal stenosis: This time we will continue physical therapy monitor his MEGAN output anticipate discharge home possibly tomorrow. Present on Admission?: Yes Subjective Back pain is controlled leg symptoms improved. Physical Exam Physical Exam: Patient is comfortable has good strength testing. Results & Data Vital Signs (Past 12 Hours) Vital Signs Temp Pulse Pulse Resp BP Pulse Ox 09/19/19 06:23 36.6 C 69 18 135/87 97 09/18/19 23:34 37.0 C 78 18 165/94 H 95 09/18/19 20:41 88 132/80
[2019-09-19] MEDS: AMIODARONE 200 MG TAB PO SCH (21:08)
[2019-09-19] MEDS: METOPROLOL TARTRATE 50 MG TAB PO SCH (21:09)
[2019-09-19] MEDS: ATORVASTATIN 40 MG TAB PO SCH (21:09)
[2019-09-19] MEDS: ALLOPURINOL 300 MG TAB PO SCH (21:09)
[2019-09-19] MEDS: DOCUSATE SODIUM/SENNA 50/8.6MG TAB PO SCH ×2 (21:09→21:11)
[2019-09-19] MEDS: LEVOTHYROXINE SODIUM 100 MCG TABLET PO SCH (21:09)
[2019-09-20] MEDS: OXYCODONE HCL IR 5 MG TAB (IMMEDIATE RELEASE) PO PRN ×2 (06:06→12:41)
[2019-09-20] MEDS: CHOLECALCIFEROL 1,000 UNITS TAB PO SCH (07:37)
[2019-09-20] MEDS: ASPIRIN 81 MG ECTAB PO SCH (08:33)
--- NOTE | 2019-09-20 08:49 | Discharge Summary ---
Date of Service September 20, 2019 Admission HPI Per Admitting Provider This is a 5-year-old male well-known to us that presents with chronic persistent back and leg pain. Failing extensive course of nonoperative care is here for surgical intervention. Discharge Data Consultations 09/17/19 13:58 Consult Case Management - Discharge Planning Routine Consult Hospitalist Routine Procedures Performed Operation Date: 09/17/19 10:05 Actual Procedures p L4-L5 Revision Decompression and Fusion, Spinal Cord Monitoring(Not Applicable) - Marcial Zepeda DO Hospital Course (1) Back pain: Patient is a 59-year-old male with history physical examination and radiographic images consistent with spinal stenosis. This reason he was brought to the operating room and underwent revision decompression and lumbar fusion. This performed by Dr. Zepeda under general anesthesia. He left the operating room with a MEGAN drain Bryant in place and was transferred to PACU in stable condition. He was seen by physical therapy postop day #1 for ambulation and gait training. Throughout hospital course his calves remained supple nontender his abdomen remains supple nontender as well. Today postop day #3 he is met discharge criteria and is safe for home discharge. He was to refrain from lifting anything heavier than 5 to 7 pounds he was to perform no full bending at the waist. He was to change his dressing once daily until there is no drainage once there is no drainage he may begin to shower. Were going to see him in the office in approximately 2 weeks or sooner if he develops any increased pain fevers or chills.
== END 2019-09-20 13:42 | disposition home or self-care (01) | DRG 454 ==
LOC: ASU 08:38 → 3E 13:11

== ENCOUNTER 2019-09-21 14:19 | Inpatient (IN) ==
[2019-09-21] MEDS ORDERED: HYDROmorphone INJ 0.5 MG/0.5 ML SYR IV STA (16:38)
[2019-09-21] MEDS ORDERED: KETOROLAC TROMETHAMINE 15 MG/ML VIAL IV STA (16:38)
[2019-09-21] MEDS ORDERED: ONDANSETRON INJ 2 MG/ML 2 ML VIAL IV STA (16:38)
[2019-09-21] MEDS ORDERED: SODIUM CHLORIDE 0.9% 1000ML 1,000 ML IV SCH (16:45)
--- NOTE | 2019-09-21 16:54 | Emergency Department Note ---
Entered by Radha Casper acting as a scribe for Jono Alexis DO History of Present Illness General Chief complaint: Back Injury/Pain Stated complaint: POST BACK SURGERY UNCONTROLLED PAIN Source: patient and family History of Present Illness Onset (ago): day(s) 4 Location: back (lower) Radiation: other (buttocks, lower extremity ) Severity: severe Pain Consistency: + constant Maximum Pain Intensity: 10 Quality: + other ("intense pulling") Exacerbated By: + movement Associated symptoms: + denies other symptoms (rhinorrhea, numbness in groin, rhinorrhea) and + other (constipation); no chest pain and no cough Treatments prior to arrival: other (Oxycodone) The patient is a 59 year old male who presents to the Emergency Room with complaints of post surgical back injury/pain. The patient explains that he had recent back surgery performed by Dr. Zepeda on 09/17/19. Prior to surgery he was experiencing "dull" lower back pain extending into his left groin and radiating down his left leg. Since his surgery he now reports a new pain which he describes as "intense and pulling" located below his buttocks which radiates down his lower extremities. He explains that this pain began once the post- surgical drain was removed. The patient was seen in the ED 1 day ago for the same and is prescribed Oxycodone which he takes at home without relief. His last dose was 3 hours ago and family states that he has been taking 2-3 pills every 6 hours for pain. The patient states that his pain is "unmanageable" and worse with movement. Additionally the patient complains of constipation, his family also notes that he is prescribed blood thinners but has not been taking them recently. He denies numbness in groin, cough, chest pain, and rhinorrhea. The patient offers no additional complaints at this time. Home Medications Home Medications Medication Instructions Recorded Confirmed Type furosemide 20 mg PO DAILY PRN 08/18/19 09/21/19 History losartan 25 mg PO HS 08/18/19 09/21/19 History metoprolol tartrate 50 mg PO HS 08/18/19 09/21/19 History allopurinol 300 mg PO HS 09/07/19 09/21/19 History amiodarone 200 mg PO HS 09/07/19 09/21/19 History cholecalciferol (vitamin D3) 1,000 unit PO HS 09/07/19 09/21/19 History [Vitamin D3] hydrocodone-acetaminophen 1 tab PO Q4H PRN 09/07/19 09/21/19 History levothyroxine 100 mcg PO HS 09/07/19 09/21/19 History warfarin 5 mg PO Q2D 09/07/19 09/21/19 History warfarin 7.5 mg PO Q2D 09/07/19 09/21/19 History aspirin [Aspirin Low Dose] 81 mg PO HS 09/17/19 09/21/19 History oxycodone 5 mg PO Q6H PRN 09/20/19 09/21/19 History tramadol 50 mg PO Q6H PRN 09/20/19 09/21/19 History docusate sodium [Colace] 100 mg PO BID #60 cap 09/21/19 09/21/19 Rx oxycodone 10 mg PO Q6H PRN #14 tab 09/21/19 09/21/19 Rx sennosides [Senokot] 8.6 mg PO HS #30 tab 09/21/19 09/21/19 Rx Allergies Allergy/AdvReac Type Severity Reaction Status Date / Time No Known Allergies Allergy Verified 09/21/19 17:07 Past Med/Surg History Medical History Afib CAD (coronary artery disease) non-obstructive Cardiomyopathy CHF (congestive heart failure) hx/no recent issues Chronic back pain Depression Gout History of kidney stones Hypertension Hypothyroidism Left ventricular aneurysm found around time of [place] (15+ years ago)- cardio monitoring Myocardial Infarction 15+ years ago- medically managed Presence of combination internal cardiac defibrillator (ICD) and pacemaker Implanted 2013 (follows with cardiology/Dr. 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 and A total of 10 systems reviewed and were otherwise negative Physical Exam Vital Signs Vital Signs - 24 hr 09/21/19 14:46 09/21/19 17:07 09/21/19 17:15 Temperature 36.5 C Temperature Source Oral Pulse Rate 105 H 93 H Pulse Rate [Finger] Pulse Rate from SpO2 Sensor 93 H Respiratory Rate 22 12 Respiratory Depth Normal Blood Pressure 168/77 H 163/106 H Blood Pressure [Right Arm] Blood Pressure Mean 107 126 Blood Pressure Mean [Right Arm] Blood Pressure Position Sitting Pulse Oximetry 90 100 Oxygen Delivery Method Room Air Room Air Oxygen Flow Rate 6 Sepsis Recent Fever Within 48 Hours No Sepsis Action Taken by Nursing No Action Required 09/21/19 17:16 09/21/19 17:20 09/21/19 17:30 Temperature Temperature Source Pulse Rate 92 H Pulse Rate [Finger] Pulse Rate from SpO2 Sensor 89 82 91 H Respiratory Rate Respiratory Depth Blood Pressure Blood Pressure [Right Arm] Blood Pressure Mean Blood Pressure Mean [Right Arm] Blood Pressure Position Pulse Oximetry 99 100 100 Oxygen Delivery Method Oxygen Flow Rate 6 6 6 Sepsis Recent Fever Within 48 Hours Sepsis Action Taken by Nursing 09/21/19 17:32 09/21/19 17:40 09/21/19 17:50 Temperature Temperature Source Pulse Rate Pulse Rate [Finger] Pulse Rate from SpO2 Sensor 91 H 79 81 Respiratory Rate Respiratory Depth Blood Pressure 154/79 H Blood Pressure [Right Arm] Blood Pressure Mean 117 Blood Pressure Mean [Right Arm] Blood Pressure Position Pulse Oximetry 100 100 99 Oxygen Delivery Method Nasal Cannula Oxygen Flow Rate 6 6 2 Sepsis Recent Fever Within 48 Hours Sepsis Action Taken by Nursing 09/21/19 18:00 09/21/19 18:01 09/21/19 18:10 Temperature Temperature Source Pulse Rate 103 H Pulse Rate [Finger] Pulse Rate from SpO2 Sensor 87 90 93 H Respiratory Rate Respiratory Depth Blood Pressure 101/86 Blood Pressure [Right Arm] Blood Pressure Mean 93 Blood Pressure Mean [Right Arm] Blood Pressure Position Pulse Oximetry 99 99 Oxygen Delivery Method Nasal Cannula Nasal Cannula Nasal Cannula Oxygen Flow Rate 2 2 2 Sepsis Recent Fever Within 48 Hours Sepsis Action Taken by Nursing 09/21/19 18:12 09/21/19 18:16 09/21/19 18:20 Temperature Temperature Source Pulse Rate Pulse Rate [Finger] 88 Pulse Rate from SpO2 Sensor 90 Respiratory Rate 20 Respiratory Depth Blood Pressure Blood Pressure [Right Arm] 101/86 Blood Pressure Mean Blood Pressure Mean [Right Arm] 91 Blood Pressure Position Pulse Oximetry 91 93 Oxygen Delivery Method Room Air Nasal Cannula Nasal Cannula Oxygen Flow Rate 2 2 Sepsis Recent Fever Within 48 Hours Sepsis Action Taken by Nursing GENERAL: Walking out of the bathroom in moderate distress holding lower back EYE EXAM: normal conjunctiva. OROPHARYNX: no exudate, no erythema, lips, buccal mucosa, and tongue normal and mucous membranes are moist NECK: supple, no nuchal rigidity, no adenopathy, non-tender LUNGS: Clear to auscultation. Normal chest wall mechanics HEART: no murmurs, S1 normal and S2 normal ABDOMEN: abdomen soft, non-tender, normo-active bowel sounds, no masses, no rebound or guarding. BACK: Midline incision is clean dry and intact with mild clear drainage SKIN: no rashes and no bruising UPPER EXTREMITIES: upper extremities are grossly normal. LOWER EXTREMITIES: Flexion and extension of the hips, knees, ankles, and EHL 5/5 bilaterally. Gross sensation is intact. DPs are 2/4 bilateral. [Patellar and Achilles reflexes are 2/4 bilateral] NEURO EXAM: Normal sensorium, cranial nerves II-XII grossly intact, normal speech, no gross weakness of arms. Course Course ED COURSE: Vital signs were reviewed and showed situationally hypertensive, tachycardic The patients medical record was reviewed The above diagnostic studies were performed and reviewed. ED treatments and interventions as stated above. 1634: The patient was evaluated in room B12B. A complete history and physical examination was performed. 1714: The patient was asleep but was awoken since his stats dropped to 70s. O2 stat is 99% on 4L. 1815: Upon reevaluation, I discussed my findings with the patient and he understands and agrees with the treatment plan. Based on the patients age, coexisting illnesses, exam and lab findings the decision to treat as an inpatient was made. The patient remained stable while under my care. I spoke to Dr.Datta [facility] Hospitalist who said to touch base with Dr. Zepeda. We then discussed plan of care with Mayda Patino PA-C Ortho Spine who will admit the patient. The patient will be evaluated for further management. Administered Medications Lactated Ringer's (Lr) 1,000 mls @ 15 mls/hr IV .Q24H TASH Stop: 10/21/19 18:29 Last Admin: 09/21/19 21:15 Dose: 15 mls/hr Documented by: [id number] Oxycodone HCl (Roxicodone Immediate Rel) 5 - 10 mg PO Q4H PRN PRN Reason: Moderate-Severe Pain Stop: 10/05/19 18:22 Last Admin: 09/21/19 21:14 Dose: 10 mg Documented by: [id number] Discontinued Medications Hydromorphone HCl (Dilaudid) 1.5 mg IV NOW STA Stop: 09/21/19 16:39 Last Admin: 09/21/19 16:59 Dose: 1.5 mg Documented by: [id number] Sodium Chloride (Nss 1000ml) 1,000 mls @ 999 mls/hr IV .Q1H1M TASH Stop: 09/21/19 17:45 Last Infusion: 09/21/19 18:05 Dose: 0 mls/hr Documented by: [id number] Admin: 09/21/19 16:59 Dose: 999 mls/hr Documented by: [id number] Ketorolac Tromethamine (Toradol) 15 mg IV NOW STA Stop: 09/21/19 16:39 Last Admin: 09/21/19 16:59 Dose: 15 mg Documented by: [id number] Naloxone HCl (Narcan) Confirm Administered Dose 0.4 mg .ROUTE .STK-MED ONE Stop: 09/21/19 17:12 Last Admin: 09/21/19 20:34 Dose: Not Given Documented by: [id number] Ondansetron HCl (Zofran) 4 mg IV NOW STA Stop: 09/21/19 16:39 Last Admin: 09/21/19 16:59 Dose: 4 mg Documented by: [id number] Impression & Plan Postoperative back pain, Leg pain, Difficulty walking Discharge Plan Visit Data *Final* Discharge Date/Time: 09/21/19 19:35 Chief Complaint: Back Injury/Pain Stated Complaint: POST BACK SURGERY UNCONTROLLED PAIN ED Provider: Jono Alexis Discharge Problem: Postoperative back pain, Leg pain, Difficulty walking Patient Disposition: Admitted As Inpatient Discharge Instructions Interventions: ED Discharge Assessment Last Done: 09/21/19 19:35 Medical Decision Making Differential Diagnosis Differential diagnoses includes but is not limited to lumbar radiculopathy, kidney stone, muscle strain, facture, cauda equina, mass, and disc herniation. Medical Records Attestation: I reviewed the patient's medical records. Home Medications Current Medication List: was personally reviewed by me Laboratory Data Attestation: I reviewed the patient's lab results. Result diagrams: 09/21/19 16:57 09/21/19 18:30 Lab Results 09/21/19 09/21/19 Range/Units 16:57 16:57 WBC 9.86 (4.8-10.8) K/uL RBC 4.99 (4.7-6.1) M/uL Hgb 14.2 (14.0-18.0) g/dL Hct 41.7 L (42-52) % MCV 83.6 (80-100) fL MCH 28.5 (25-34) pg MCHC 34.1 (32-36) g/dL RDW Std Deviation 43.6 (36.4-46.3) fL RDW Coeff of Chris 14.2 (11.5-14.5) % Plt Count 247 (130-400) K/uL MPV 9.9 (7.4-10.4) fL Immature Gran % (Auto) 0.5 % Neut % (Auto) 73.8 % Lymph % (Auto) 11.7 % [place] % (Auto) 11.9 % Eos % (Auto) 1.8 % Baso % (Auto) 0.3 % Immature Gran # (Auto) 0.05 H (0.00-0.02) K/uL Neut # (Auto) 7.28 H (1.4-6.5) K/uL Lymph # (Auto) 1.15 L (1.2-3.4) K/uL [place] # (Auto) 1.17 H (0.11-0.59) K/uL Eos # (Auto) 0.18 (0-0.5) K/uL Baso # (Auto) 0.03 (0-0.2) K/uL Sodium 136 (136-145) mmol/L Potassium (3.5-5.1) mmol/L Chloride 102 (98-107) mmol/L Carbon Dioxide 31 (21-32) mmol/L Anion Gap 3.0 (3-11) BUN 19 H (7-18) mg/dl Creatinine 1.27 (0.6-1.4) mg/dl Est Cr Clr Drug Dosing Not Reportable Est GFR ( Amer) 70.7 Est GFR (Non-Af Amer) 61.0 BUN/Creatinine Ratio 14.9 (10-20) Glucose 95 (70-99) mg/dl Calcium 9.1 (8.5-10.1) mg/dl Total Bilirubin 1.1 H D (0.2-1) mg/dl AST (15-37) U/L ALT 19 (12-78) U/L Alkaline Phosphatase 86 (45-117) U/L Total Protein 8.8 H (6.4-8.2) gm/dl Albumin 3.4 (3.4-5.0) gm/dl Globulin 5.4 H (2.5-4.0) gm/dl Albumin/Globulin Ratio 0.6 L (0.9-2) Lipase 74 (73-393) U/L Blood Pressure Blood Pressure Findings: Elevated blood pressure Blood Pressure Disposition: elevated BP felt to be situational MDM Narrative Patient is a 59-year-old male with status post L4-L5 decompression with reconstruction by Dr. Zepeda on this past . He was discharged on Saturday and return last night for worsening pain. Pain is located in the left back radiating down the left leg. No weakness or numbness. He is able to urinate and move his bowels. Neurologic exam is completely intact. Pain is completely uncontrolled at home. Reviewed imaging obtained last night was unremarkable. He notes the pain is unchanged from last night and consequently do not favor any additional imaging will be beneficial at this time. Labs show no significant leukocytosis or anemia. BMP along with LFTs were unremarkable. Bilirubin slightly elevated at 1.1. Lipase is normal. No abdominal pain. BMP with a contaminated urine. Patient was given 1.5 mg of Dilaudid. He did drop his pulse ox as he fell asleep initially to 70%. We will came back up as I was called to the room and he was titrated off the nonrebreather down to 3 L nasal cannula and was awake alert and oriented. He notes he feels much better. He does admit to a history of sleep apnea. Discussed with the hospitalist and consequently and discussed with Mayda who was Dr. Zepeda's PA. She admitted the patient. Of note the patient did have a short run of 4 beats of PVCs after admission. Discharge Problem: Leg pain Qualifiers: Laterality: unspecified laterality Qualified Code(s): M79.606 - Pain in leg, unspecified The scribe's documentation has been prepared under my direction and personally reviewed by me in its entirety. I confirm that the note above accurately reflects all work, treatment, procedures, and medical decision making performed by me.
[2019-09-21] MEDS ORDERED: NALOXONE HCL 0.4 MG/1 ML VIAL/CARP ONE (17:11)
[2019-09-21 17:12] LABS: Basophils # (auto) 0.03 K/uL (0-0.2); Basophils % (auto) 0.3 %; Eosinophils # (auto) 0.18 K/uL (0-0.5); Eosinophils % (auto) 1.8 %; Hematocrit (blood only) 41.7 % (42-52); Hemoglobin 14.2 g/dL (14.0-18.0); Immature Granulocytes # (auto) 0.05 K/uL (0.00-0.02); Immature Granulocytes % (auto) 0.5 %; Lymphocytes # (auto) 1.15 K/uL (1.2-3.4); Lymphocytes % (auto) 11.7 %; Mean Corpuscular Hemoglobin 28.5 pg (25-34); Mean Corpuscular Hgb Conc 34.1 g/dL (32-36); Mean Corpuscular Volume 83.6 fL (80-100); Mean Platelet Volume 9.9 fL (7.4-10.4); Monocytes # (auto) 1.17 K/uL (0.11-0.59); Monocytes % (auto) 11.9 %; Neutrophils # (auto) 7.28 K/uL (1.4-6.5); Neutrophils % (auto) 73.8 %; Platelet Count 247 K/uL (130-400); RDW Coefficient of Variation 14.2 % (11.5-14.5); RDW Standard Deviation 43.6 fL (36.4-46.3); Red Blood Count 4.99 M/uL (4.7-6.1); White Blood Count 9.86 K/uL (4.8-10.8)
[2019-09-21 17:47] LABS: Alanine Aminotransferase 19 U/L (12-78); Albumin Globulin Ratio 0.6 (0.9-2); Albumin Level 3.4 gm/dl (3.4-5.0); Alkaline Phosphatase 86 U/L (45-117); BUN Creatinine Ratio 14.9 (10-20); Bilirubin,Total 1.1 mg/dl (0.2-1); Blood Urea Nitrogen 19 mg/dl (7-18); Calcium 9.1 mg/dl (8.5-10.1); Carbon Dioxide 31 mmol/L (21-32); Chloride 102 mmol/L (98-107); Est GFR (African American) 70.7; Globulin 5.4 gm/dl (2.5-4.0); Glucose 95 mg/dl (70-99); Lipase 74 U/L (73-393); Sodium 136 mmol/L (136-145); Total Protein 8.8 gm/dl (6.4-8.2)
[2019-09-21] MEDS ORDERED: ACETAMINOPHEN 500 MG TAB PO PRN (18:23)
[2019-09-21] MEDS ORDERED: ONDANSETRON 4 MG OD TAB PO PRN (18:23)
[2019-09-21] MEDS ORDERED: HYDROmorphone INJ 1 MG/ML SYRINGE IV PRN (18:23)
[2019-09-21] MEDS ORDERED: LORazepam 1 MG/2 ML VIAL IV PRN (18:23)
[2019-09-21] MEDS ORDERED: PROMETHAZINE HCL 12.5 MG in SODIUM CHLORIDE 0.9% 50 ML IV PRN (18:23)
[2019-09-21] MEDS ORDERED: METOCLOPRAMIDE HCL INJ 5 MG/ML 2 ML VIAL IV PRN (18:23)
[2019-09-21] MEDS ORDERED: LORazepam 1 MG TAB PO PRN (18:23)
[2019-09-21] MEDS ORDERED: ONDANSETRON INJ 2 MG/ML 2 ML VIAL IV PRN (18:23)
[2019-09-21] MEDS ORDERED: KETOROLAC TROMETHAMINE 15 MG/ML VIAL IV PRN (18:34)
[2019-09-21 18:54] LABS: Potassium 4.2 mmol/L (3.5-5.1)
[2019-09-21 19:55] LABS: Appearance Urine Clear (Clear); Bilirubin Urine Negative (Negative); Blood Urine Trace (Negative); Color Urine Yellow; Glucose Urine UA Negative (Negative); Ketones Urine Negative (Negative); Leukocyte Esterase Urine Negative (Negative); Nitrite Urine Negative (Negative); Protein Urine 1+ (Negative); Specific Gravity Urine 1.025 (1.000-1.030); Urobilinogen Urine Negative (Negative); pH Urine 5.5 (4.5-7.5)
[2019-09-21 20:04] LABS: Epithelial Cell Urine >30 /lpf (0-5)
[2019-09-21 20:05] LABS: Bacteria Urine 1+ (Negative); RBC Urine 0-4 /hpf (0-4)
[2019-09-21] MEDS ORDERED: TRAMADOL HCL 50 MG TABLET PO PRN (20:09)
[2019-09-21] MEDS ORDERED: FUROSEMIDE 20 MG TAB PO PRN (20:09)
[2019-09-21] MEDS ORDERED: WARFARIN SOD 7.5 MG TAB PO SCH (21:00)
[2019-09-21] MEDS ORDERED: DOCUSATE SODIUM 100 MG CAP PO SCH (21:00)
[2019-09-21] MEDS: OXYCODONE HCL IR 5 MG TAB (IMMEDIATE RELEASE) PO PRN (21:14)
[2019-09-21] MEDS: LACTATED RINGER'S 1,000 ML IV SCH (21:15)
[2019-09-21] MEDS: dexAMETHasone 8 MG in SYRINGE 0 ML IV SCH (22:06)
[2019-09-21] MEDS: DOCUSATE SODIUM 100 MG CAP PO SCH (22:19)
[2019-09-21] MEDS: LEVOTHYROXINE SODIUM 100 MCG TABLET PO SCH (22:20)
[2019-09-21] MEDS: METOPROLOL TARTRATE 50 MG TAB PO SCH (22:21)
[2019-09-21] MEDS: SENNA 8.6 MG TAB PO SCH (22:21)
[2019-09-21] MEDS: LOSARTAN POTASSIUM 25 MG TAB PO SCH (22:21)
[2019-09-21] MEDS: AMIODARONE 200 MG TAB PO SCH (22:22)
[2019-09-21] MEDS: allopurinoL 300 MG TAB PO SCH (22:22)
[2019-09-21] MEDS: ASPIRIN 81 MG ECTAB PO SCH (22:23)
[2019-09-22] MEDS: OXYCODONE HCL IR 5 MG TAB (IMMEDIATE RELEASE) PO PRN (04:05)
[2019-09-22] MEDS: dexAMETHasone 8 MG in SYRINGE 0 ML IV SCH ×2 (05:39→12:32)
[2019-09-22] MEDS: DOCUSATE SODIUM 100 MG CAP PO SCH ×2 (09:19→20:29)
--- NOTE | 2019-09-22 10:44 | History & Physical Report ---
Date of Service September 22, 2019 Assessment & Plan (1) Back pain: At this time we will discontinue the observe his status with adequate pain medication and rest. To allow him to eat today. However I have emphasized that if symptoms do not resolve in the next 12 hours I would like to consider I&D lumbar spine to rule out neural compression secondary to seroma. Patient understands agrees. We made n.p.o. after midnight. Back pain laterality: midline Back pain location: low back pain Chronicity: acute Sciatica laterality: sciatica of right side Sciatica presence: with sciatica Qualified Code(s): M54.41 - Lumbago with sciatica, right side Present on Admission?: Yes History of Present Illness Chief Complaint: Back and left leg pain Primary Care Provider: Titi Rodriguez MD This is a 59-year-old male well-known to me status post lumbar decompression fusion. He done wonderfully immediately postoperative. But apparently upon discharge after removal of his drain he began noticing worsening back and left leg pain. Described as involving the left hamstring with occasional radiation below the knee. It is "a lightening-like". It has been unremitting in nature and quite debilitating. Separately he presents the emergency room for pain control. This morning is quite comfortable while lying perfectly still. When I have him move the pain is reproduced. He denies any headaches nausea or vomiting. Pain medicines to provide relief. Allergies Allergy/AdvReac Type Severity Reaction Status Date / Time No Known Allergies Allergy Verified 09/21/19 17:07 Home Medications Home Medications Medication Instructions Recorded Confirmed Type furosemide 20 mg PO DAILY PRN 08/18/19 09/21/19 History losartan 25 mg PO HS 08/18/19 09/21/19 History metoprolol tartrate 50 mg PO HS 08/18/19 09/21/19 History allopurinol 300 mg PO HS 09/07/19 09/21/19 History amiodarone 200 mg PO HS 09/07/19 09/21/19 History cholecalciferol (vitamin D3) 1,000 unit PO HS 09/07/19 09/21/19 History [Vitamin D3] hydrocodone-acetaminophen 1 tab PO Q4H PRN 09/07/19 09/21/19 History levothyroxine 100 mcg PO HS 09/07/19 09/21/19 History warfarin 5 mg PO Q2D 09/07/19 09/21/19 History warfarin 7.5 mg PO Q2D 09/07/19 09/21/19 History aspirin [Aspirin Low Dose] 81 mg PO HS 09/17/19 09/21/19 History oxycodone 5 mg PO Q6H PRN 09/20/19 09/21/19 History tramadol 50 mg PO Q6H PRN 09/20/19 09/21/19 History docusate sodium [Colace] 100 mg PO BID #60 cap 09/21/19 09/21/19 Rx oxycodone 10 mg PO Q6H PRN #14 tab 09/21/19 09/21/19 Rx sennosides [Senokot] 8.6 mg PO HS #30 tab 09/21/19 09/21/19 Rx Past Med/Surg History Medical History Afib CAD (coronary artery disease) non-obstructive Cardiomyopathy CHF (congestive heart failure) hx/no recent issues Chronic back pain Depression Gout History of kidney stones Hypertension Hypothyroidism Left ventricular aneurysm found around time of [place] (15+ years ago)- cardio monitoring Myocardial Infarction 15+ years ago- medically managed Presence of combination internal cardiac defibrillator (ICD) and pacemaker Implanted 2013 (follows with cardiology/Dr. Jaffe)- last check 01/2019 Sleep apnea CPAP Surgical History H/O arthroscopic knee surgery multiple on bilateral knees H/O neck surgery History of cardiac cath 2011= NO STENTS History of cystoscopy History of esophagogastroduodenoscopy (EGD) History of laminectomy L4-L5 History of lithotripsy History of tonsillectomy Status post uvulopalatopharyngoplasty Family History Father FHx: lung cancer Social History Preferred Language: Moroccan Communication Ability: Effective Cytotechnologist Required: No Beliefs That Will Affect Care: None Current Living Situation: Alone Other Information That Helps Us Care for You: No Feels Safe at Home: Yes Safety Concerns: Feels Safe At This Time Smoking Status: Never smoker Second Hand Exposure: No ; Hx Alcohol Use: No Hx Substance Use: No Physical Exam Physical Exam: On exam he is comfortable to have him move. He has tension signs to testing the left leg. He has excellent strength testing no sensory deficits incision is clean dry and intact. Results & Data Vital Signs (Past 12 Hours) Vital Signs Temp Pulse Resp BP Pulse Ox Pulse Ox 09/22/19 08:09 93 09/22/19 07:16 36.4 C L 72 16 152/87 H 92 09/22/19 00:20 95 09/21/19 23:15 36.9 C 84 18 144/64 H 95
--- NOTE | 2019-09-22 12:05 | Anesthesiology Consultation ---
Assessment & Plan (1) Encounter for pre-operative examination: Chart Review Chart Review: Acceptable Risk for Surgery and Patient NOT seen in Pre Admission Testing Consults Requested none History Surgery Operation Date: 09/23/19 14:05 Proposed Procedures p Incision and Drainage of Lumbar Spine - Marcial Zepeda DO Height/Weight Height: 5 ft 8 in Weight: 122.8 kg Allergies Allergy/AdvReac Type Severity Reaction Status Date / Time No Known Allergies Allergy Verified 09/21/19 17:07 Medications Home Medications Medication Instructions Recorded Confirmed Last Taken furosemide 20 mg PO DAILY PRN 08/18/19 09/21/19 Unknown losartan 25 mg PO HS 08/18/19 09/21/19 09/19/19 metoprolol tartrate 50 mg PO HS 08/18/19 09/21/19 09/19/19 allopurinol 300 mg PO HS 09/07/19 09/21/19 09/19/19 amiodarone 200 mg PO HS 09/07/19 09/21/19 09/19/19 cholecalciferol (vitamin D3) 1,000 unit PO HS 09/07/19 09/21/19 09/19/19 [Vitamin D3] hydrocodone-acetaminophen 1 tab PO Q4H PRN 09/07/19 09/21/19 09/14/19 18:00 levothyroxine 100 mcg PO HS 09/07/19 09/21/19 09/19/19 warfarin 5 mg PO Q2D 09/07/19 09/21/19 09/11/19 21:00 warfarin 7.5 mg PO Q2D 09/07/19 09/21/19 09/11/19 21:00 aspirin [Aspirin Low Dose] 81 mg PO HS 09/17/19 09/21/19 09/19/19 oxycodone 5 mg PO Q6H PRN 09/20/19 09/21/19 Unknown tramadol 50 mg PO Q6H PRN 09/20/19 09/21/19 Unknown docusate sodium [Colace] 100 mg PO BID #60 cap 09/21/19 09/21/19 Unknown oxycodone 10 mg PO Q6H PRN #14 tab 09/21/19 09/21/19 Unknown sennosides [Senokot] 8.6 mg PO HS #30 tab 09/21/19 09/21/19 Unknown Active Medications Generic Name Dose Route Start Last Admin Trade Name Freq PRN Reason Stop Dose Admin Allopurinol 300 mg 09/21/19 21:00 09/21/19 22:22 Zyloprim PO 10/21/19 20:59 300 mg HS TASH Administration Amiodarone HCl 200 mg 09/21/19 21:00 09/21/19 22:22 Cordarone PO 10/21/19 20:59 200 mg HS TASH Administration Aspirin 81 mg 09/21/19 21:00 09/21/19 22:23 Ecotrin Ectab PO 10/21/19 20:59 81 mg HS TASH Administration Docusate Sodium 100 mg 09/21/19 21:00 09/22/19 09:19 Colace PO 10/21/19 20:59 Not Given BID TASH Lactated Ringer's 1,000 mls @ 15 mls/hr 09/21/19 18:30 09/22/19 06:23 Lr IV 10/21/19 18:29 15 mls/hr .Q24H TASH Infusion Dexamethasone 8 mg/ Syringe 2 mls @ 1 mls/min 09/21/19 21:00 09/22/19 05:39 IV 09/22/19 13:01 1 mls/min Q8H TASH Administration Levothyroxine Sodium 100 mcg 09/21/19 21:00 09/21/19 22:20 Synthroid PO 10/21/19 20:59 100 mcg HS TASH Administration Losartan Potassium 25 mg 09/21/19 21:00 09/21/19 22:21 Cozaar PO 10/21/19 20:59 25 mg HS TASH Administration Metoprolol Tartrate 50 mg 09/21/19 21:00 09/21/19 22:21 Lopressor PO 10/21/19 20:59 50 mg HS TASH Administration Oxycodone HCl 5 - 10 mg 09/21/19 18:23 09/22/19 04:05 Roxicodone Immediate Rel PO 10/05/19 18:22 10 mg Q4H PRN Administration Moderate-Severe Pain Sennosides 8.6 mg 09/21/19 21:00 09/21/19 22:21 Senokot PO 10/21/19 20:59 Not Given HS TASH Warfarin Sodium 7.5 mg 09/21/19 21:00 09/21/19 22:20 Coumadin PO 10/21/19 20:59 7.5 mg Q2D@1600 TASH Administration NPO Date Last Intake of Fluids: 09/21/19 Time Last Intake of Fluids: 23:59 Date Last Intake of Solids: 09/21/19 Time Last Intake of Solids: 23:59 Past Medical History Medical History (Updated 09/22/19 @ 12:14 by Galen Weinstein MD) Afib CAD (coronary artery disease) non-obstructive Cardiomyopathy CHF (congestive heart failure) hx/no recent issues Chronic back pain Depression Gout History of kidney stones Hypertension Hypothyroidism Left ventricular aneurysm found around time of CT (15+ years ago)- cardio monitoring Myocardial Infarction 15+ years ago- medically managed Presence of combination internal cardiac defibrillator (ICD) and pacemaker Implanted 2013 (follows with cardiology/Dr. Jaffe)- last check 01/2019 Sleep apnea CPAP Past Family History Family History Father FHx: lung cancer Past Surgical History Surgical History H/O arthroscopic knee surgery multiple on bilateral knees H/O neck surgery History of cardiac cath 2011= NO STENTS History of cystoscopy History of esophagogastroduodenoscopy (EGD) History of implantable cardioverter-defibrillator (ICD) placement History of laminectomy L4-L5 History of lithotripsy History of lumbar surgery 09/17/19 Grade 1 view Mac 3, magnet placed on L chest wall during procedure History of tonsillectomy Status post uvulopalatopharyngoplasty Social History Smoking Status: Never smoker Hx Alcohol Use: No Hx Substance Use: No substance use type: does not use Physical Exam Vital Signs Last Vital Signs Temp 36.4 C L 09/22/19 07:16 Pulse 72 09/22/19 07:16 Resp 16 09/22/19 07:16 BP 152/87 H 09/22/19 07:16 Pulse Ox 93 09/22/19 08:09 Testing Laboratory Results 09/21/19 16:57 09/21/19 18:30 Urine Color Yellow 09/21/19 19:45 Urine Appearance Clear (Clear) 09/21/19 19:45 Urine pH 5.5 (4.5-7.5) 09/21/19 19:45 Ur Specific [place] 1.025 (1.000-1.030) 09/21/19 19:45 Urine Protein 1+ (Negative) H 09/21/19 19:45 Urine Glucose (UA) Negative (Negative) 09/21/19 19:45 Urine Ketones Negative (Negative) 09/21/19 19:45 Urine Nitrite Negative (Negative) 09/21/19 19:45 Ur Leukocyte Esterase Negative (Negative) 09/21/19 19:45 Urine RBC 0-4 /hpf (0-4) 09/21/19 19:45 Urine WBC 5-10 /hpf (0-5) H 09/21/19 19:45 Ur Epithelial Cells >30 /lpf (0-5) H 09/21/19 19:45 Electrocardiogram Date: 09/08/19 Findings: + NSR @ (73), + NSST changes and + T wave inversion Chest X-Ray Date: 09/08/19 XR chest Pre-admission PA/Lat CLINICAL HISTORY: Preoperative chest COMPARISON STUDY: 04/11/2014 FINDINGS: The heart is borderline enlarged. There is a left subclavian dual- chamber pacer/defibrillator. There is mild central vascular prominence without evidence for overt failure. There is no lobar consolidation. There are no pleural effusions.[ IMPRESSION: Borderline cardiac enlargement with mild central vascular prominence but no evidence of overt failure. No evidence of focal pulmonary consolidation Electronically signed by: Sixto Fortune M.D. 09/08/2019 1:56 PM Dictated: 09/08/19 1353 Transcribed: 09/08/19 1353
[2019-09-22] MEDS ORDERED: WARFARIN SOD 5 MG TAB PO SCH (16:00)
[2019-09-22] MEDS: SENNA 8.6 MG TAB PO SCH (20:29)
[2019-09-22] MEDS: METOPROLOL TARTRATE 50 MG TAB PO SCH (20:30)
[2019-09-22] MEDS: ASPIRIN 81 MG ECTAB PO SCH (20:31)
[2019-09-22] MEDS: allopurinoL 300 MG TAB PO SCH (20:32)
[2019-09-22] MEDS: LEVOTHYROXINE SODIUM 100 MCG TABLET PO SCH (20:32)
[2019-09-22] MEDS: LOSARTAN POTASSIUM 25 MG TAB PO SCH (20:32)
[2019-09-22] MEDS: AMIODARONE 200 MG TAB PO SCH (20:32)
[2019-09-23] MEDS: DOCUSATE SODIUM 100 MG CAP PO SCH ×2 (09:30→20:59)
[2019-09-23] MEDS ORDERED: Nursing to Pharmacy Communication ONE (13:29)
--- NOTE | 2019-09-23 13:35 | Orthopedic Progress Note ---
Date of Service September 23, 2019 Assessment & Plan (1) Postoperative back pain: At this time we will postpone the procedure allow him to eat today and encourage ambulation activity as tolerated. I will reassess him in a.m.. We will make him n.p.o. after midnight as a precaution. Present on Admission?: Yes Subjective Patient states he feels much improved today. Even beginning last evening he was able to ambulate about the room without any sciatica. His back pain is well controlled. Physical Exam Physical Exam: On exam he has no tension signs excellent strength testing. Is able to move without difficulty. Results & Data Vital Signs (Past 12 Hours) Vital Signs Temp Pulse Resp BP Pulse Ox 09/23/19 07:19 36.8 C 72 22 142/72 H 95
[2019-09-23] MEDS ORDERED: DEXAMETHASONE SOD PHOSPHATE 8 MG in SYRINGE 0 ML IV ONE (13:45)
[2019-09-23] MEDS: LACTATED RINGER'S 1,000 ML IV SCH ×2 (19:06→19:14)
[2019-09-23] MEDS: METOPROLOL TARTRATE 50 MG TAB PO SCH (20:59)
[2019-09-23] MEDS: SENNA 8.6 MG TAB PO SCH (20:59)
[2019-09-23] MEDS: LOSARTAN POTASSIUM 25 MG TAB PO SCH (20:59)
[2019-09-23] MEDS: AMIODARONE 200 MG TAB PO SCH (20:59)
[2019-09-23] MEDS: allopurinoL 300 MG TAB PO SCH (21:00)
[2019-09-23] MEDS: LEVOTHYROXINE SODIUM 100 MCG TABLET PO SCH (21:00)
[2019-09-23] MEDS: ASPIRIN 81 MG ECTAB PO SCH (21:00)
[2019-09-24] MEDS: OXYCODONE HCL IR 5 MG TAB (IMMEDIATE RELEASE) PO PRN (01:33)
[2019-09-24] MEDS: DOCUSATE SODIUM 100 MG CAP PO SCH (08:20)
--- NOTE | 2019-09-24 15:23 | Discharge Summary ---
Date of Service September 24, 2019 Admission HPI Per Admitting Provider This is a 59-year-old male well-known to me status post lumbar decompression fusion. He done wonderfully immediately postoperative. But apparently upon discharge after removal of his drain he began noticing worsening back and left leg pain. Described as involving the left hamstring with occasional radiation below the knee. It is "a lightening-like". It has been unremitting in nature and quite debilitating. Separately he presents the emergency room for pain control. This morning is quite comfortable while lying perfectly still. When I have him move the pain is reproduced. He denies any headaches nausea or vomiting. Pain medicines to provide relief. Principal Diagnosis Back pain status post lumbar decompression fusion Discharge Data Allergies Allergy/AdvReac Type Severity Reaction Status Date / Time No Known Allergies Allergy Verified 09/21/19 17:07 Consultations 09/21/19 18:15 ED Decision to Admit Stat Procedures Performed Operation Date: 09/24/19 14:10 <No data on this case meets the specified criteria> Hospital Course (1) History of lumbar surgery: Patient was admitted to the hospital with intractable back and left leg pain. He was given a course of bedrest with IV Toradol and Decadron for 24 hours. We had considered possible I&D lumbar spine to evacuate any hematoma. However he progressed appropriately through his hospital stay. The second he was up and ambulating progressed to the third day without difficulty subsequently was discharged home. Discharge orders instructions from the chart for further review. Total Time Total Time Spent Total Time Spent (In Minutes): 20 minutes Discharge Plan Discharge Items Patient Disposition: Home - Self-Care Reason For Visit: INTRACTABLE BACK PAIN POST OP Discharge Diagnosis: Postoperative back pain resolved Activity: As commented below Non-emergency contact: Primary Care Provider Call non-emergency contact if: you have any medication questions Follow-up/Referrals: Titi Rodriguez MD [Primary Care Provider] - Diet: Regular Addtl Attending Provider Instructions: ACTIVITY RECOMMENDATIONS: SELF CARE INSTRUCTIONS AFTER THORACIC/LUMBAR FUSIONS 1. You may walk to your tolerance. It is good exercise for your legs and back. Expect some back and intermittent leg aches and pains. 2. You may perform "counter-top" level activities (make a sandwich, lucian with a project, etc.). 3. No bending or lifting of more than 10 pounds or back twisting of any nature (roll like a log when turning in bed). 4. You may ride in a car for 20-30 minutes at a time. No driving until after your first visit with your doctor. 5. Frequent changes of position and restricting sitting to 30 minutes at a time will help limit the amount of back spasms and stiffness you may experience. 6. You may discontinue the use of ambulatory aids (cane, crutches, etc.) once your strength and confidence allow. 7. 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 Do not take a tub bath, sit in a hot tub or go into a swimming pool until after your first recheck in the office. SPECIAL CARE INSTRUCTIONS: VERY IMPORTANT TO READ AND REVIEW A. Your surgical incision has been closed with a cosmetic suture under the skin that will dissolve in about 6 weeks. In 14 days, you can use a pair of clean scissors and cut the suture that is left outside of the skin at the ends of your incision. 1. The small skin tapes can be removed 7 days after surgery if they have not fallen off by that point. 2. You may keep the wound open to air as much as possible to promote healing after post-op day number 5 unless told otherwise by your doctor. 3. If you think the wound looks like it is becoming infected (redness or worsening drainage) and/or you are experiencing fever, chill or worsening back pain and muscle spasms, contact the office so that we may evaluate you as soon as possible. B. Complications are uncommon, but please contact us if you have any signs or symptoms of: 1. wound infection (fever higher than 102.5 degrees F, redness, separation of wound, drainage, or increasing pain from the incision) 2. blood clots in legs (pain, swelling, redness and warmth in legs) 3. urinary tract infection (fever higher than 102.5 degrees F, burning upon urination or increased frequency of urination) 4. nerve problems (inability to walk on your toes or heels, numbness, loss of bowel or bladder control) 5. any other symptoms that concern you C. Please call the office at if you have any concerns or questions about your operation or recovery. D. No smoking! Smoking drastically decreases the chance of a solid fusion. E. Do not take any anti-inflammatory medications (Indocin, Advil, Motrin, Aspirin, Naprosyn, etc.) as these may inhibit the chance of a solid fusion. Tylenol is okay to take for pain. MANAGING PAIN AFTER SPINAL SURGERY 1. Narcotic medication is intended for short-term use and will be provided for surgical pain. Surgical pain usually lasts for a period of 4-6 weeks. Narcotic medication includes Percocet, Vicodin, Darvocet, Tylenol #3 or Lortab. 2. Longer-term pain is more appropriately treated with non-narcotic medication such as Tylenol ES. 3. Muscle spasm is not appropriately treated with narcotics. Muscle relaxers such as Soma, Flexeril or Skelaxin can be used along with Tylenol ES. 4. Remember that we all live with some "aches and pains". This is not unusual or uncommon after an injury or as we get older. a. Back pain is expected and may include muscle spasms for 4 to 6 weeks after surgery. The pain should gradually improve. If the pain worsens for no apparent reason, please contact the office. b. Intermittent leg pain may also be experienced and should not be concerned about unless it worsens for no apparent reason. If so, please contact the office. 5. We will provide appropriate medication within the normal guidelines of their prescribed use. We will also be very cautious and aware of potential abuse and extended duration of patients' medication needs. a. Pain medications are for your comfort and to assist with sleep and rest so that the tissue can heal. They are not provided in order to return to normal activity and should not be used through the day. To do so or worsening pain at night can result from ongoing tissue damage and development of tolerance to the prescribed medicine. 6. Please allow 2-3 days to process refills. Prescriptions will not be mailed but must be picked up at the office. FOLLOW UP VISIT: Keep your scheduled follow-up appointment. Any questions, please call the office at . Pending Studies at Discharge: No Stand-Alone Forms: [facility] [employer], Smoking Cessation Medications and DC Order Prescriptions: Continued metoprolol tartrate 50 mg Tablet 50 mg PO HS RF: 0 losartan 25 mg Tablet 25 mg PO HS RF: 0 furosemide 20 mg Tablet 20 mg PO DAILY PRN (Reason: Fluid Retention) RF: 0 amiodarone 200 mg Tablet 200 mg PO HS RF: 0 hydrocodone-acetaminophen 5-325 mg Tablet 1 tab PO Q4H PRN (Reason: Pain) RF: 0 levothyroxine 100 mcg Tablet 100 mcg PO HS RF: 0 warfarin 5 mg Tablet 5 mg PO Q2D RF: 0 warfarin 5 mg Tablet 7.5 mg PO Q2D RF: 0 allopurinol 300 mg Tablet 300 mg PO HS RF: 0 cholecalciferol (vitamin D3) [Vitamin D3] 1,000 unit Capsule 1,000 unit PO HS RF: 0 aspirin [Aspirin Low Dose] 81 mg Tablet,Delayed Release (Dr/Ec) 81 mg PO HS RF: 0 tramadol 50 mg tablet 50 mg PO Q6H PRN (Reason: Pain, Moderate) RF: 0 oxycodone 5 mg tablet 5 mg PO Q6H PRN (Reason: Pain, Severe) RF: 0 oxycodone 5 mg tablet 10 mg PO Q6H PRN (Reason: pain) Qty: 14 RF: 0 sennosides [Senokot] 8.6 mg tablet 8.6 mg PO HS Qty: 30 RF: 0 docusate sodium [Colace] 100 mg capsule 100 mg PO BID Qty: 60 RF: 0 Discharge Orders: Discharge Order (Routine); Ordered 09/24/19 Ordered By: Marcial Zepeda Admission Data Admit Date/Time: 09/22/19 14:07 Attending Provider: Marcial Zepeda Admit Provider: Marcial Zepeda Primary Care Provider: Titi Rodriguez Other Providers: Marcial Zepeda
== END 2019-09-24 16:07 | disposition home or self-care (01) | DRG 948 ==
LOC: ED 14:19 → 3N 14:19

== ENCOUNTER 2020-08-13 19:43 | Inpatient (IN) ==
--- NOTE | 2020-08-13 19:57 | Emergency Department Note ---
History of Present Illness General Chief complaint: Cardiac Assessment Stated complaint: SYNCOPE, PACERMAKER ACTIVATED Time Seen by Provider: 08/13/20 19:57 Source: patient, family, EMS, RN notes reviewed and old records reviewed Mode of arrival: EMS Limitations: no limitations History of Present Illness Provider complaint: near syncopal Onset (ago): day(s) 1 Location: head Current Pain Intensity: 0 Associated symptoms: + denies other symptoms; no chest pain, no diaphoresis, no fever/chills, no headaches, no nausea/vomiting and no shortness of breath Treatments prior to arrival: none This is a 60-year-old male who presents the emergency department over concerns that he feels his defibrillator is going to go off. The patient reports he has a decreased ejection fraction and reports yesterday that while climbing a lab e rror his defibrillator did go off. He went to his biological technical officer office yesterday. The patient reports today he keeps having episodes where he feels like he is going to pass out and the defibrillator is going to go off. Upon arrival to the emergency department the patient is having a large amount of ectopy on the monitor. He denies any chest pain or shortness of breath. Home Medications Home Medications Medication Instructions Recorded Confirmed Type metoprolol tartrate 50 mg PO HS 08/18/19 08/13/20 History allopurinol 300 mg PO HS 09/07/19 08/13/20 History amiodarone 200 mg PO BID 09/07/19 08/13/20 History hydrocodone-acetaminophen 1 tab PO Q4H PRN 09/07/19 08/13/20 History warfarin 5 mg PO Q2D 09/07/19 08/13/20 History warfarin 7.5 mg PO Q2D 09/07/19 08/13/20 History aspirin [Aspirin Low Dose] 81 mg PO HS 09/17/19 08/13/20 History levothyroxine 112 mcg PO HS 01/11/20 08/13/20 History furosemide [Lasix] 40 mg PO DAILY 08/13/20 08/13/20 History meclizine 25 mg PO TID PRN 08/13/20 08/13/20 History nitroglycerin [Nitrostat] 0.4 mg SUBLINGUAL UD PRN 08/13/20 08/13/20 History sacubitril-valsartan [Entresto] 1 tab PO BID 08/13/20 08/13/20 History Allergies Allergy/AdvReac Type Severity Reaction Status Date / Time No Known Allergies Allergy Verified 08/13/20 21:01 Past Med/Surg History Medical History Afib CAD (coronary artery disease) non-obstructive Cardiomyopathy CHF (congestive heart failure) hx/no recent issues Chronic back pain Depression Gout History of kidney stones Hypertension Hypothyroidism Left ventricular aneurysm found around time of MT (15+ years ago)- cardio monitoring Myocardial Infarction 15+ years ago- medically managed Presence of combination internal cardiac defibrillator (ICD) and pacemaker Implanted 2013 (follows with cardiology/Dr. Jaffe)- last check 01/2019 Sleep apnea CPAP Surgical History H/O arthroscopic knee surgery multiple on bilateral knees H/O neck surgery History of cardiac cath 2011= NO STENTS History of cystoscopy History of esophagogastroduodenoscopy (EGD) History of implantable cardioverter-defibrillator (ICD) placement History of laminectomy L4-L5 History of lithotripsy History of lumbar surgery 09/17/19 Grade 1 view Mac 3, magnet placed on L chest wall during procedure History of tonsillectomy Status post uvulopalatopharyngoplasty Family History Father FHx: lung cancer Social History Smoking Status: Never smoker Second Hand Exposure: No; Hx Alcohol Use: No Hx Substance Use: No Preferred Language: Wallisian Communication Ability: Effective Forepart Rounder Required: No Beliefs That Will Affect Care: None Current Living Situation: Alone Feels Safe at Home: Yes Assistive Devices: None Review of Systems A total of 10 systems reviewed and were otherwise negative Physical Exam Vital Signs Vital Signs - 24 hr 08/13/20 19:49 08/13/20 20:00 08/13/20 20:25 Temperature 36.9 C Temperature Source Oral Pulse Rate 66 65 66 Pulse Rate [Apical] Pulse Rate from SpO2 Sensor 65 66 Pulse Rhythm [Apical] Pulse Strength [Apical] Respiratory Rate 21 21 21 Respiratory Effort / Characteristics Non-Labored Spontaneous Respiratory Depth Normal Blood Pressure 142/83 H 143/85 H Blood Pressure [Left Arm] Blood Pressure Mean 102 104 Blood Pressure Mean [Left Arm] Blood Pressure Position [Left Arm] Pulse Oximetry 91 94 96 Oxygen Delivery Method Room Air Room Air Oxygen Flow Rate Sepsis Recent Fever Within 48 Hours No Sepsis New/Unexplained Change in Mental Status No Sepsis Action Taken by Nursing No Action Required Oxygen Flow Rate - Titration 2 Pulse Oximetry Post Tiitration 95 08/13/20 20:27 08/13/20 20:30 08/13/20 20:40 Temperature Temperature Source Pulse Rate 66 67 Pulse Rate [Apical] Pulse Rate from SpO2 Sensor 65 67 Pulse Rhythm [Apical] Pulse Strength [Apical] Respiratory Rate 21 17 Respiratory Effort / Characteristics Respiratory Depth Blood Pressure 127/73 Blood Pressure [Left Arm] Blood Pressure Mean 83 Blood Pressure Mean [Left Arm] Blood Pressure Position [Left Arm] Pulse Oximetry 99 95 93 Oxygen Delivery Method Nasal Cannula Oxygen Flow Rate 2 Sepsis Recent Fever Within 48 Hours Sepsis New/Unexplained Change in Mental Status Sepsis Action Taken by Nursing Oxygen Flow Rate - Titration Pulse Oximetry Post Tiitration 08/13/20 20:45 08/13/20 20:50 08/13/20 21:00 Temperature Temperature Source Pulse Rate 64 63 65 Pulse Rate [Apical] Pulse Rate from SpO2 Sensor 64 63 64 Pulse Rhythm [Apical] Pulse Strength [Apical] Respiratory Rate 18 19 19 Respiratory Effort / Characteristics Respiratory Depth Blood Pressure 124/81 126/82 Blood Pressure [Left Arm] Blood Pressure Mean 86 93 Blood Pressure Mean [Left Arm] Blood Pressure Position [Left Arm] Pulse Oximetry 95 95 95 Oxygen Delivery Method Oxygen Flow Rate Sepsis Recent Fever Within 48 Hours Sepsis New/Unexplained Change in Mental Status Sepsis Action Taken by Nursing Oxygen Flow Rate - Titration Pulse Oximetry Post Tiitration 08/13/20 21:10 08/13/20 21:15 08/13/20 21:20 Temperature Temperature Source Pulse Rate 63 63 63 Pulse Rate [Apical] Pulse Rate from SpO2 Sensor 63 65 63 Pulse Rhythm [Apical] Pulse Strength [Apical] Respiratory Rate 21 19 18 Respiratory Effort / Characteristics Respiratory Depth Blood Pressure 118/75 Blood Pressure [Left Arm] Blood Pressure Mean 90 Blood Pressure Mean [Left Arm] Blood Pressure Position [Left Arm] Pulse Oximetry 93 92 96 Oxygen Delivery Method Oxygen Flow Rate Sepsis Recent Fever Within 48 Hours Sepsis New/Unexplained Change in Mental Status Sepsis Action Taken by Nursing Oxygen Flow Rate - Titration Pulse Oximetry Post Tiitration 08/13/20 21:30 08/13/20 21:40 08/13/20 21:42 Temperature Temperature Source Pulse Rate 61 66 63 Pulse Rate [Apical] Pulse Rate from SpO2 Sensor 61 66 63 Pulse Rhythm [Apical] Pulse Strength [Apical] Respiratory Rate 25 H 15 20 Respiratory Effort / Characteristics Respiratory Depth Blood Pressure 143/94 H Blood Pressure [Left Arm] Blood Pressure Mean 101 Blood Pressure Mean [Left Arm] Blood Pressure Position [Left Arm] Pulse Oximetry 96 94 95 Oxygen Delivery Method Oxygen Flow Rate Sepsis Recent Fever Within 48 Hours Sepsis New/Unexplained Change in Mental Status Sepsis Action Taken by Nursing Oxygen Flow Rate - Titration Pulse Oximetry Post Tiitration 08/13/20 21:45 08/13/20 21:50 08/13/20 22:00 Temperature Temperature Source Pulse Rate 64 61 63 Pulse Rate [Apical] Pulse Rate from SpO2 Sensor 64 61 63 Pulse Rhythm [Apical] Pulse Strength [Apical] Respiratory Rate 20 13 18 Respiratory Effort / Characteristics Respiratory Depth Blood Pressure 148/96 H 134/100 Blood Pressure [Left Arm] Blood Pressure Mean 112 107 Blood Pressure Mean [Left Arm] Blood Pressure Position [Left Arm] Pulse Oximetry 94 94 96 Oxygen Delivery Method Oxygen Flow Rate Sepsis Recent Fever Within 48 Hours Sepsis New/Unexplained Change in Mental Status Sepsis Action Taken by Nursing Oxygen Flow Rate - Titration Pulse Oximetry Post Tiitration 08/13/20 22:03 08/13/20 22:10 08/13/20 22:16 Temperature Temperature Source Pulse Rate 60 60 Pulse Rate [Apical] 65 Pulse Rate from SpO2 Sensor 61 60 Pulse Rhythm [Apical] Regular Pulse Strength [Apical] Normal Respiratory Rate 19 19 22 Respiratory Effort / Characteristics Non-Labored Respiratory Depth Normal Blood Pressure 150/94 H Blood Pressure [Left Arm] 134/100 Blood Pressure Mean 109 Blood Pressure Mean [Left Arm] 111 Blood Pressure Position [Left Arm] Sitting Pulse Oximetry 95 96 96 Oxygen Delivery Method Nasal Cannula Oxygen Flow Rate 1 Sepsis Recent Fever Within 48 Hours Sepsis New/Unexplained Change in Mental Status Sepsis Action Taken by Nursing Oxygen Flow Rate - Titration Pulse Oximetry Post Tiitration 08/13/20 22:20 08/13/20 22:30 08/13/20 22:40 Temperature Temperature Source Pulse Rate 60 61 62 Pulse Rate [Apical] Pulse Rate from SpO2 Sensor 60 61 62 Pulse Rhythm [Apical] Pulse Strength [Apical] Respiratory Rate 18 19 17 Respiratory Effort / Characteristics Respiratory Depth Blood Pressure 146/90 H Blood Pressure [Left Arm] Blood Pressure Mean 111 Blood Pressure Mean [Left Arm] Blood Pressure Position [Left Arm] Pulse Oximetry 95 94 95 Oxygen Delivery Method Oxygen Flow Rate Sepsis Recent Fever Within 48 Hours Sepsis New/Unexplained Change in Mental Status Sepsis Action Taken by Nursing Oxygen Flow Rate - Titration Pulse Oximetry Post Tiitration 08/13/20 22:45 08/13/20 22:50 Temperature Temperature Source Pulse Rate 64 68 Pulse Rate [Apical] Pulse Rate from SpO2 Sensor 64 63 Pulse Rhythm [Apical] Pulse Strength [Apical] Respiratory Rate 19 15 Respiratory Effort / Characteristics Respiratory Depth Blood Pressure 147/91 H Blood Pressure [Left Arm] Blood Pressure Mean 104 Blood Pressure Mean [Left Arm] Blood Pressure Position [Left Arm] Pulse Oximetry 94 96 Oxygen Delivery Method Oxygen Flow Rate Sepsis Recent Fever Within 48 Hours Sepsis New/Unexplained Change in Mental Status Sepsis Action Taken by Nursing Oxygen Flow Rate - Titration Pulse Oximetry Post Tiitration VITAL SIGNS - Vital signs and nursing notes were reviewed. GENERAL - 60-year-old male appearing stated age who is in no acute distress. Communicates well with provider and answers questions appropriately. SKIN - Without rashes. HEAD - NC/AT. EYES - PERRL with EOMI bilaterally. Sclera anicteric. Palpebral conjunctiva pink and moist with no injection noted. EARS - No deformities of external structures noted on gross examination bilaterally. No pain elicited with palpation of the tragus bilaterally. External auditory canals without discharge or otorrhea. Tympanic membranes pearly ray without retraction or bulging. No fluid or purulent material visualized behind the TM. Handle of malleus, umbo, cone of light, pars tensa/flaccid all easily visualized. NOSE - Midline and without cyanosis. No epistaxis or purulent drainage noted. Septum midline without deviation or septal hematoma noted. MOUTH/OROPHARYNX - Without perioral cyanosis. Buccal mucosa pink and moist and without leukoplakia. Tongue midline with equal elevation of palate bilaterally. No tonsillar hypertrophy, erythema, or exudates noted. dentition noted. NECK - Neck with FROM. Supple to palpation. lymphadenopathy noted. No nuchal rigidity. LUNGS - Chest wall symmetric without accessory muscle use, intercostals retractions, or central cyanosis. Normal vesicular breath sounds CTA B/L. No wheezes, rales, or rhonchi appreciated. CARDIAC - RRR with S1/S2. No murmur, rubs, or gallops appreciated. ABDOMEN - Abdominal contour without pulsations or visible masses. BS normoactive all four quadrants. No tenderness, palpable masses, hepatosplen omegaly, or ascites noted. EXTREMITIES - No clubbing or peripheral cyanosis. No pretibial edema present. +3/5 radial, posterior tibial, and dorsalis pedis pulses palpated throughout. +5/5 strength noted in UE/LE bilaterally. NEUROLOGIC - Cranial nerves II through XII grossly intact. Sensory intact to light touch throughout. Patellar reflexes +2/4. PSYCH - A&Ox3 and cooperates fully with examiner. Pt is very pleasant and interacts well with examiner. Course Administered Medications Amiodarone HCl/Dextrose (Nexterone / D5w) 360 mg in 200 mls @ 33.333 mls/hr IV ONE ONE Stop: 08/14/20 02:13 Last Admin: 08/13/20 21:10 Dose: 33.3 mls/hr Documented by: [id number] Cosigned by: [id number] Discontinued Medications Amiodarone HCl (Amiodarone Iv Bolus & Drip) 1 ea IV NOW STA; Protocol Stop: 08/13/20 20:15 Last Admin: 08/13/20 22:02 Dose: Not Given Documented by: [id number] Magnesium Sulfate/Dextrose (Magnesium Sulfate / D5w) 1 gm in 100 mls @ 100 mls/hr IV NOW STA Stop: 08/13/20 21:03 Last Infusion: 08/13/20 23:00 Dose: 0 mls/hr Documented by: [id number] Admin: 08/13/20 22:01 Dose: 100 mls/hr Documented by: [id number] Amiodarone HCl/Dextrose (Nexterone / D5w) 150 mg in 100 mls @ 600 mls/hr IV NOW STA Stop: 08/13/20 20:23 Last Infusion: 08/13/20 21:12 Dose: 0 mls/hr Documented by: [id number] Cosigned by: [id number] Admin: 08/13/20 20:40 Dose: 600 mls/hr Documented by: [id number] Cosigned by: [id number] Magnesium Sulfate/Dextrose (Magnesium Sulfate / D5w) 1 gm in 100 mls @ 50 mls/hr IV ONE ONE Stop: 08/13/20 23:22 Last Admin: 08/13/20 22:02 Dose: Not Given Documented by: [id number] Miscellaneous (Stat Iv Infusion Titration Per Protocol) 1 ea N/A NOW STA Stop: 08/13/20 20:15 Last Admin: 08/13/20 22:02 Dose: Not Given Documented by: [id number] Potassium Chloride (Potassium Chloride 20 Meq Tabcr) 40 meq PO NOW STA Stop: 08/13/20 21:24 Last Admin: 08/13/20 22:02 Dose: 40 meq Documented by: [id number] Critical Care Time I have personally spent greater than 30 minutes of critical care time in the direct management of this patient. This includes bedside care, interpretation of diagnostic studies, and testing, discussion with consultants, patient, and family members, and other required patient management activities. This 30 minutes is in excess of all separately billable procedures. Medical Decision Making Differential Diagnosis Cardiac ischemia, aortic dissection, pulmonary embolism, pneumothorax, pneumonia, pericarditis, myocarditis, esophageal rupture, GERD, cholecystitis, pancreatitis, musculoskeletal, as well as other pathologies. Medical Records Attestation: I reviewed the patient's medical records. Home Medications Current Medication List: was personally reviewed by me Laboratory Data Attestation: I reviewed the patient's lab results. Result diagrams: 08/13/20 20:25 08/13/20 20:25 Lab Results 08/13/20 08/13/20 08/13/20 Range/Units 20:25 20:25 20:25 WBC 5.28 (4.8-10.8) K/uL RBC 5.50 (4.7-6.1) M/uL Hgb 14.6 (14.0-18.0) g/dL POC Hgb (14.0-18.0) g/dl Hct 44.4 (42-52) % POC Hct (42-52) % MCV 80.7 (80-100) fL MCH 26.5 (25-34) pg MCHC 32.9 (32-36) g/dL RDW Std Deviation 45.4 (36.4-46.3) fL RDW Coeff of Chris 15.5 H (11.5-14.5) % Plt Count 227 (130-400) K/uL MPV 9.5 (7.4-10.4) fL Immature Gran % (Auto) 0.2 % Neut % (Auto) 63.8 % Lymph % (Auto) 15.7 % [place] % (Auto) 14.4 % Eos % (Auto) 5.5 % Baso % (Auto) 0.4 % Neut # (Auto) 3.37 (1.4-6.5) K/uL Lymph # (Auto) 0.83 L (1.2-3.4) K/uL [place] # (Auto) 0.76 H (0.11-0.59) K/uL Eos # (Auto) 0.29 (0-0.5) K/uL Baso # (Auto) 0.02 (0-0.2) K/uL Immature Gran # (Auto) 0.01 (0.00-0.02) K/uL PT 36.6 H (9.0-12.0) Seconds INR 3.7 H (0.9-1.1) APTT 46.1 H* (21.0-31.0) Seconds PTT Ratio 1.7 POC Sodium (135-144) mmol/L Sodium 139 (136-145) mmol/L POC Potassium (3.3-5.0) mmol/L Potassium 3.6 (3.5-5.1) mmol/L POC Chloride (101-112) mmol/L Chloride 106 (98-107) mmol/L Carbon Dioxide 28 (21-32) mmol/L POC Total CO2 (24-31) mmol/L Anion Gap 5.0 (3-11) POC Anion Gap (16-25) mmol/L POC BUN (7-18) mg/dl BUN 24 H (7-18) mg/dl Creatinine 1.72 H (0.6-1.4) mg/dl POC Creatinine (0.6-1.3) mg/dl Est Cr Clr Drug Dosing 63.0 ml/min Est GFR ( Amer) 48.7 Est GFR (Non-Af Amer) 42.0 BUN/Creatinine Ratio 13.7 (10-20) Glucose 107 H (70-99) mg/dl POC Glucose (other) (70-99) mg/dl Calcium 8.7 (8.5-10.1) mg/dl POC Ioniz Calcium Rebekah (1.12-1.32) mmol/l Phosphorus 3.1 (2.5-4.9) mg/dl Magnesium 1.9 (1.8-2.4) mg/dl Total Bilirubin 0.4 (0.2-1) mg/dl AST 24 (15-37) U/L ALT 26 (12-78) U/L Alkaline Phosphatase 108 (45-117) U/L Total Creatine Kinase 118 (39-308) U/L CK-MB (CK-2) 1.8 (0.5-3.6) ng/ml CK/CKMB % Calc 1.5 (0-3.0) Troponin I 0.262 H* (0-0.045) ng/ml Total Protein 8.3 H (6.4-8.2) gm/dl Albumin 3.5 (3.4-5.0) gm/dl Globulin 4.8 H (2.5-4.0) gm/dl Albumin/Globulin Ratio 0.7 L (0.9-2) Lipase 214 (73-393) U/L 10/10/20 Range/Units 20:38 WBC (4.8-10.8) K/uL RBC (4.7-6.1) M/uL Hgb (14.0-18.0) g/dL POC Hgb 15.3 (14.0-18.0) g/dl Hct (42-52) % POC Hct 45 (42-52) % MCV (80-100) fL MCH (25-34) pg MCHC (32-36) g/dL RDW Std Deviation (36.4-46.3) fL RDW Coeff of Chris (11.5-14.5) % Plt Count (130-400) K/uL MPV (7.4-10.4) fL Immature Gran % (Auto) % Neut % (Auto) % Lymph % (Auto) % [place] % (Auto) % Eos % (Auto) % Baso % (Auto) % Neut # (Auto) (1.4-6.5) K/uL Lymph # (Auto) (1.2-3.4) K/uL [place] # (Auto) (0.11-0.59) K/uL Eos # (Auto) (0-0.5) K/uL Baso # (Auto) (0-0.2) K/uL Immature Gran # (Auto) (0.00-0.02) K/uL PT (9.0-12.0) Seconds INR (0.9-1.1) APTT (21.0-31.0) Seconds PTT Ratio POC Sodium 140 (135-144) mmol/L Sodium (136-145) mmol/L POC Potassium 3.8 (3.3-5.0) mmol/L Potassium (3.5-5.1) mmol/L POC Chloride 101 (101-112) mmol/L Chloride (98-107) mmol/L Carbon Dioxide (21-32) mmol/L POC Total CO2 26 (24-31) mmol/L Anion Gap (3-11) POC Anion Gap 18.0 (16-25) mmol/L POC BUN 25 H (7-18) mg/dl BUN (7-18) mg/dl Creatinine (0.6-1.4) mg/dl POC Creatinine 1.7 H (0.6-1.3) mg/dl Est Cr Clr Drug Dosing ml/min Est GFR ( Amer) Est GFR (Non-Af Amer) BUN/Creatinine Ratio (10-20) Glucose (70-99) mg/dl POC Glucose (other) 82 (70-99) mg/dl Calcium (8.5-10.1) mg/dl POC Ioniz Calcium Rebekah 1.18 (1.12-1.32) mmol/l Phosphorus (2.5-4.9) mg/dl Magnesium (1.8-2.4) mg/dl Total Bilirubin (0.2-1) mg/dl AST (15-37) U/L ALT (12-78) U/L Alkaline Phosphatase (45-117) U/L Total Creatine Kinase (39-308) U/L CK-MB (CK-2) (0.5-3.6) ng/ml CK/CKMB % Calc (0-3.0) Troponin I (0-0.045) ng/ml Total Protein (6.4-8.2) gm/dl Albumin (3.4-5.0) gm/dl Globulin (2.5-4.0) gm/dl Albumin/Globulin Ratio (0.9-2) Lipase (73-393) U/L ECG Data Attestation: I personally reviewed and interpreted this ECG as follows: Indication: + syncope Rate (beats per minute): 71 Rhythm: + other (atrial paced rhythm) ECG Intervals/blocks: + Left bundle branch block (incomplete) ECG [place]: + Normal ECG ST segments: + T-wave inversions (Lateral); no ST depression and no ST elevation Comparison ECG Date: from (01/11/2020) Change: the following changes noted (pacemaker has replaced NSR) MDM Narrative Patient was seen and evaluated as above in room C9. Review was performed of nursing notes and vital signs. I did review pertinent previous visits and patient history. After obtaining a thorough history and physical examination the above work up was performed. This is a 60-year-old male who presents to the emergency department over concerns of the patient is having a large amount of arrhythmias. I did discuss the case with the patient's biological technical officer who asked that the patient be placed on an amiodarone drip. I did discuss the case with the hospitalist service who did agreed admit the patient. I will note that the patient's troponin is elevated. An order was placed for continuous cardiac monitoring. The monitor shows a rate of 62 with bigemini rhythm. The patient was evaluated during the global COVID-19 pandemic, and that diagnosis was suspected/considered upon their initial presentation. Their evaluation, treatment and testing was consistent with current guidelines for patients who present with complaints or symptoms that may be related to COVID- 19. Impression & Plan History of implantable cardioverter-defibrillator (ICD) placement, Ventricular ectopy Discharge Plan Visit Data Chief Complaint: Cardiac Assessment Stated Complaint: SYNCOPE, PACERMAKER ACTIVATED ED Provider: Sony Tejada Discharge Problem: History of implantable cardioverter-defibrillator (ICD) placement, Ventricular ectopy Patient Disposition: Admitted As Inpatient Discharge Instructions Interventions: ED Discharge Assessment Last Done: 08/13/20 23:46
[2020-08-13] MEDS ORDERED: MAGNESIUM SULFATE / D5W 1 GM/100 ML BAG IV STA (20:04)
[2020-08-13] MEDS ORDERED: AMIODARONE / D5W 150 MG/100 ML BAG IV STA (20:14)
[2020-08-13] MEDS ORDERED: AMIODARONE / D5W 360 MG/200 ML BAG IV ONE (20:14)
[2020-08-13] MEDS ORDERED: AMIODARONE IV BOLUS & DRIP IV STA (20:14)
[2020-08-13] MEDS ORDERED: STAT IV Infusion **Titration per Protocol STA (20:14)
[2020-08-13] MEDS ORDERED: 0.2 MICRON FILTER SET 1 EA IV ONE (20:14)
[2020-08-13 20:32] LABS: Basophils # (auto) 0.02 K/uL (0-0.2); Basophils % (auto) 0.4 %; Eosinophils # (auto) 0.29 K/uL (0-0.5); Eosinophils % (auto) 5.5 %; Hematocrit (blood only) 44.4 % (42-52); Hemoglobin 14.6 g/dL (14.0-18.0); Immature Granulocytes # (auto) 0.01 K/uL (0.00-0.02); Immature Granulocytes % (auto) 0.2 %; Lymphocytes # (auto) 0.83 K/uL (1.2-3.4); Lymphocytes % (auto) 15.7 %; Mean Corpuscular Hemoglobin 26.5 pg (25-34); Mean Corpuscular Hgb Conc 32.9 g/dL (32-36); Mean Corpuscular Volume 80.7 fL (80-100); Mean Platelet Volume 9.5 fL (7.4-10.4); Monocytes # (auto) 0.76 K/uL (0.11-0.59); Monocytes % (auto) 14.4 %; Neutrophils # (auto) 3.37 K/uL (1.4-6.5); Neutrophils % (auto) 63.8 %; Platelet Count 227 K/uL (130-400); RDW Coefficient of Variation 15.5 % (11.5-14.5); RDW Standard Deviation 45.4 fL (36.4-46.3); White Blood Count 5.28 K/uL (4.8-10.8)
[2020-08-13 20:50] LABS: Albumin Level 3.5 gm/dl (3.4-5.0); BUN Creatinine Ratio 13.7 (10-20); Calcium 8.7 mg/dl (8.5-10.1); Est GFR (African American) 48.7; Magnesium 1.9 mg/dl (1.8-2.4); Potassium 3.6 mmol/L (3.5-5.1)
[2020-08-13 20:51] LABS: iSTAT Creatinine 1.7 mg/dl (0.6-1.3); iSTAT Hemoglobin 15.3 g/dl (14.0-18.0); iSTAT Ionized Calcium 1.18 mmol/l (1.12-1.32); iSTAT Potassium 3.8 mmol/L (3.3-5.0)
[2020-08-13 20:55] LABS: Albumin Globulin Ratio 0.7 (0.9-2); Bilirubin,Total 0.4 mg/dl (0.2-1); Creatine Kinase MB 1.8 ng/ml (0.5-3.6); Globulin 4.8 gm/dl (2.5-4.0); INR 3.7 (0.9-1.1); Partial Thromboplastin Ratio 1.7; Phosphorus 3.1 mg/dl (2.5-4.9); Prothrombin Time 36.6 Seconds (9.0-12.0); Total Protein 8.3 gm/dl (6.4-8.2); Troponin I 0.262 ng/ml (0-0.045)
[2020-08-13] MEDS ORDERED: POTASSIUM CHLORIDE 20 MEQ TABCR PO STA (21:23)
[2020-08-13 21:36] LABS: Partial Thromboplastin Time 46.1 Seconds (21.0-31.0)
[2020-08-13] MEDS: MAGNESIUM SULFATE / D5W 1 GM/100 ML BAG IV ONE ×2 (21:52→22:02)
--- NOTE | 2020-08-13 22:53 | History & Physical Report ---
Date of Service August 13, 2020 Assessment & Plan (1) Paroxysmal ventricular tachycardia: Recurrent VT episodes hx chronic systolic heart failure secondary to idiopathic cardiomyopathy (EF 19% TTE 2019) status post ICD, some congestion on x-ray Troponin elevation secondary to recurrent VT in the setting of chronic kidney dysfunction hx nonobstructive CAD PAF on Coumadin, paced rhythm, INR slightly supratherapeutic history LV aneurysm/apical thrombus as per records moderate mitral regurgitation HTN, stable hyperlipidemia on statin Rx MARIANNA status post surgery on CPAP CRI, creatinine at baseline Hyperglycemia rule out DM PCU IV Amiodarone infusion as per cardiology recommendations. Continue home cardiac medications. Supplement electrolytes (maintain serum potassium at 4 and above, serum magnesium at 2 and above) Follow troponin Check hemoglobin A1c DVT prophylaxis. Coumadin INR goal between 2 and 3 Full code Text document was generated using [employer] voice recognition software. It may contain grammatical or spelling errors. Kindly contact undersigned for clarification of any documentation item in question. History of Present Illness Chief Complaint: Near syncope, lightheadedness Primary Care Provider: Titi Rodriguez MD History obtained from patient and records. Medical history significant for chronic systolic heart failure secondary to idiopathic cardiomyopathy (EF 19% TTE 2019) status post ICD, nonobstructive CAD, hx NSVT, PAF on Coumadin, history LV aneurysm/apical thrombus as per records, moderate mitral regurgitation, HTN, hyperlipidemia, MARIANNA status post surgery on CPAP, pulmonary hypertension as per records, CRI (baseline creatinine 1.8). Last confinement September 2019 under Orthopedics spine service for elective back surgery. Yesterday patient was helping his daughter install insulation at her home when he experienced lightheadedness followed by a witnessed syncopal event. Preceding sensation similar to abnormal fast heartbeat episode in the past as per patient. Patient was unconscious for about 11 seconds as per patient's daughter. Patient denies chest pain, S OB, headache. Although compliant with home medications, patient admits to not being able to take heart medications at prescribed times. Patient seen at [facility] cardiology office yesterday. Device interrogation revealed episode of V. tach receiving burst pacing with resolution and judaism of normal sinus rhythm. Provider recommended lab work and initiation of remote device monitoring capability which patient declined in the past. Consider titration of Toprol as per documentation. Patient instructed not to drive interim. Today patient with recurrent episodes of dizziness and near syncopal episodes even during rest. No chest pain although occasional sensation of throat discomfort. Patient brought to the ER by daughter. 40 beat VT episode noted without shock on initial [employer] device interrogation. IV Amiodarone infusion initiated at the ER as per copier technician recommendation. 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 Allergies Allergy/AdvReac Type Severity Reaction Status Date / Time No Known Allergies Allergy Verified 08/13/20 21:01 Home Medications Home Medications Medication Instructions Recorded Confirmed Type metoprolol tartrate 50 mg PO HS 08/18/19 08/13/20 History allopurinol 300 mg PO HS 09/07/19 08/13/20 History amiodarone 200 mg PO BID 09/07/19 08/13/20 History hydrocodone-acetaminophen 1 tab PO Q4H PRN 09/07/19 08/13/20 History warfarin 5 mg PO Q2D 09/07/19 08/13/20 History warfarin 7.5 mg PO Q2D 09/07/19 08/13/20 History aspirin [Aspirin Low Dose] 81 mg PO HS 09/17/19 08/13/20 History levothyroxine 112 mcg PO HS 01/11/20 08/13/20 History furosemide [Lasix] 40 mg PO DAILY 08/13/20 08/13/20 History meclizine 25 mg PO TID PRN 08/13/20 08/13/20 History nitroglycerin [Nitrostat] 0.4 mg SUBLINGUAL UD PRN 08/13/20 08/13/20 History sacubitril-valsartan [Entresto] 1 tab PO BID 08/13/20 08/13/20 History Past Med/Surg History Medical History Afib CAD (coronary artery disease) non-obstructive Cardiomyopathy CHF (congestive heart failure) hx/no recent issues Chronic back pain Depression Gout History of kidney stones Hypertension Hypothyroidism Left ventricular aneurysm found around time of CT (15+ years ago)- cardio monitoring Myocardial Infarction 15+ years ago- medically managed Presence of combination internal cardiac defibrillator (ICD) and pacemaker Implanted 2013 (follows with cardiology/Dr. Jaffe)- last check 01/2019 Sleep apnea CPAP Surgical History H/O arthroscopic knee surgery multiple on bilateral knees H/O neck surgery History of cardiac cath 2011= NO STENTS History of cystoscopy History of esophagogastroduodenoscopy (EGD) History of implantable cardioverter-defibrillator (ICD) placement History of laminectomy L4-L5 History of lithotripsy History of lumbar surgery 09/17/19 Grade 1 view Mac 3, magnet placed on L chest wall during procedure History of tonsillectomy Status post uvulopalatopharyngoplasty Family History Father FHx: lung cancer Social History Smoking Status: Unknown if ever smoked Second Hand Exposure: No; Do You Dip or Chew Tobacco: No; Tobacco Cessation Education Requested by Patient: No Hx Alcohol Use: No Hx Substance Use: No Preferred Language: Indonesian Communication Ability: Effective T[employer] Required: No Beliefs That Will Affect Care: None Current Living Situation: Alone Current Living Situation Comment: Family in duplex Other Information That Helps Us Care for You: No Feels Safe at Home: Yes Safety Concerns: Feels Safe At This Time Assistive Devices: None Review of Systems Review of Systems: As per HPI, all 10 systems reviewed, all other ROS negative Physical Exam Physical Exam: GENERAL: Comfortable, pleasant, morbidly obese, no respiratory distress SKIN: Normal color, warm HEENT: Bespectacled, [place] palpebral conjunctivae, no ptosis, moist buccal mucosa NECK : Supple, short neck, no tenderness CHEST : Decreased breath sounds , no tenderness HEART : Diminished S1-S2, systolic murmur ABDOMEN: distention, nontender EXTREMITIES : Minimal LE swelling, no LE tenderness, no other conspicuous deformities noted NEUROLOGIC : Coherent, no facial asymmetry, no other gross focality Results & Data Results & [facility]) Vital Signs (Past 12 Hours) Vital Signs Temp Pulse Pulse Resp BP BP Pulse Ox 08/13/20 22:03 65 19 134/100 95 08/13/20 21:00 65 19 126/82 95 08/13/20 20:50 63 19 95 10/10/20 20:45 64 18 124/81 95 08/13/20 20:40 67 17 93 08/13/20 20:30 66 21 127/73 95 08/13/20 20:27 99 08/13/20 20:25 66 21 96 08/13/20 20:00 65 21 143/85 H 94 08/13/20 19:49 36.9 C 66 21 142/83 H 91 Laboratory Results Laboratory Results WBC 5.28 K/uL (4.8-10.8) 08/13/20 20:25 RBC 5.50 M/uL (4.7-6.1) 08/13/20 20:25 Hgb 14.6 g/dL (14.0-18.0) 08/13/20 20:25 POC Hgb 15.3 g/dl (14.0-18.0) 08/13/20 20:38 Hct 44.4 % (42-52) 08/13/20 20:25 POC Hct 45 % (42-52) 08/13/20 20:38 MCV 80.7 fL (80-100) 08/13/20 20:25 MCH 26.5 pg (25-34) 08/13/20 20:25 MCHC 32.9 g/dL (32-36) 08/13/20 20:25 RDW Std Deviation 45.4 fL (36.4-46.3) 08/13/20 20:25 RDW Coeff of Chris 15.5 % (11.5-14.5) H 08/13/20 20:25 Plt Count 227 K/uL (130-400) 08/13/20 20:25 MPV 9.5 fL (7.4-10.4) 08/13/20 20:25 Immature Gran % (Auto) 0.2 % 08/13/20 20:25 Neut % (Auto) 63.8 % 08/13/20 20:25 Lymph % (Auto) 15.7 % 08/13/20 20:25 Smith % (Auto) 14.4 % 08/13/20 20:25 Eos % (Auto) 5.5 % 08/13/20 20:25 Baso % (Auto) 0.4 % 08/13/20 20:25 Neut # (Auto) 3.37 K/uL (1.4-6.5) 08/13/20 20:25 Lymph # (Auto) 0.83 K/uL (1.2-3.4) L 08/13/20 20:25 Smith # (Auto) 0.76 K/uL (0.11-0.59) H 08/13/20 20:25 Eos # (Auto) 0.29 K/uL (0-0.5) 08/13/20 20:25 Baso # (Auto) 0.02 K/uL (0-0.2) 08/13/20:25 Immature Gran # (Auto) 0.01 K/uL (0.00-0.02) 08/13/20 20: PT 36.6 Seconds (9.0-12.0) H 08/13/20 20:25 INR 3.7 (0.9-1.1) H 08/13/20 20:25 APTT 46.1 Seconds (21.0-31.0) H* 08/13/20: PTT Ratio 1.7 08/13/20: POC Sodium 140 mmol/L (135-144) 08/13/20 20:38 Sodium 139 mmol/L (136-145) 08/13/20 20:25 POC Potassium 3.8 mmol/L (3.3-5.0) 08/13/20 20:38 Potassium 3.6 mmol/L (3.5-5.1) 08/13/20 20:25 POC Chloride 101 mmol/L (101-112) 08/13/20 20:38 Chloride 106 mmol/L (98-107) 08/13/20 20:25 Carbon Dioxide 28 mmol/L (21-32) 08/13/20 20:25 POC Total CO2 26 mmol/L (24-31) 08/13/20 20:38 Anion Gap 5.0 (3-11) 08/13/20 20:25 POC Anion Gap 18.0 mmol/L (16-25) 08/13/20 20:38 POC BUN 25 mg/dl (7-18) H 08/13/20 20:38 BUN 24 mg/dl (7-18) H 08/13/20 20:25 Creatinine 1.72 mg/dl (0.6-1.4) H 08/13/20 20:25 POC Creatinine 1.7 mg/dl (0.6-1.3) H 08/13/20 20:38 Est Cr Clr Drug Dosing 63.0 ml/min 08/13/20 20:25 Est GFR ( Amer) 48.7 08/13/20 20:25 Est GFR (Non-Af Amer) 42.0 08/13/20 20:25 BUN/Creatinine Ratio 13.7 (10-20) 08/13/20 20:25 Glucose 107 mg/dl (70-99) H 08/13/20 20:25 POC Glucose (other) 82 mg/dl (70-99) 08/13/20 20:38 Calcium 8.7 mg/dl (8.5-10.1) 08/13/20 20:25 POC Ioniz Calcium Rebekah 1.18 mmol/l (1.12-1.32) 08/13/20 20:38 Phosphorus 3.1 mg/dl (2.5-4.9) 08/13/20 20:25 Magnesium 1.9 mg/dl (1.8-2.4) 08/13/20 20:25 Total Bilirubin 0.4 mg/dl (0.2-1) 08/13/20 20:25 AST 24 U/L (15-37) 08/13/20 20:25 ALT 26 U/L (12-78) 08/13/20 20:25 Alkaline Phosphatase 108 U/L (45-117) 08/13/20 20:25 Total Creatine Kinase 118 U/L (39-308) 08/13/20 20:25 CK-MB (CK-2) 1.8 ng/ml (0.5-3.6) 08/13/20 20:25 CK/CKMB % Calc 1.5 (0-3.0) 08/13/20 20:25 Troponin I 0.262 ng/ml (0-0.045) H* 08/13/20 20:25 Total Protein 8.3 gm/dl (6.4-8.2) H 08/13/20 20:25 Albumin 3.5 gm/dl (3.4-5.0) 08/13/20 20:25 Globulin 4.8 gm/dl (2.5-4.0) H 08/13/20 20:25 Albumin/Globulin Ratio 0.7 (0.9-2) L 08/13/20 20:25 Lipase 214 U/L (73-393) 08/13/20 20:25 Diagnostic Findings Chest x-ray as per my interpretation cardiomegaly, elevated right hemidiaphragm, minimal congestion EKG as per my interpretation : Rate 70, paced rhythm
[2020-08-14] MEDS ORDERED: HYDROmorphone INJ 0.5 MG/0.5 ML SYR IV PRN (00:50)
[2020-08-14] MEDS ORDERED: HYDROCODONE/ACETAMOPHEN 5/325MG TAB PO PRN (00:50)
[2020-08-14] MEDS ORDERED: ACETAMINOPHEN 325 MG TAB PO PRN (00:50)
[2020-08-14] MEDS ORDERED: PROMETHAZINE HCL 12.5 MG in SODIUM CHLORIDE 0.9% 50 ML IV PRN (00:50)
[2020-08-14] MEDS ORDERED: AMIODARONE / D5W 360 MG/200 ML BAG IV SCH (02:14)
[2020-08-14] MEDS: METOPROLOL TARTRATE 50 MG TAB PO SCH ×2 (03:24→20:24)
[2020-08-14] MEDS: AMIODARONE 200 MG TAB PO SCH ×3 (03:24→20:24)
[2020-08-14 07:30] LABS: Basophils # (auto) 0.02 K/uL (0-0.2); Basophils % (auto) 0.4 %; Eosinophils # (auto) 0.34 K/uL (0-0.5); Eosinophils % (auto) 6.4 %; Hematocrit (blood only) 43.5 % (42-52); Hemoglobin 14.3 g/dL (14.0-18.0); Immature Granulocytes # (auto) 0.02 K/uL (0.00-0.02); Immature Granulocytes % (auto) 0.4 %; Lymphocytes # (auto) 1.23 K/uL (1.2-3.4); Lymphocytes % (auto) 23.2 %; Mean Corpuscular Hemoglobin 26.8 pg (25-34); Mean Corpuscular Hgb Conc 32.9 g/dL (32-36); Mean Corpuscular Volume 81.6 fL (80-100); Mean Platelet Volume 10.1 fL (7.4-10.4); Monocytes # (auto) 0.63 K/uL (0.11-0.59); Monocytes % (auto) 11.9 %; Neutrophils # (auto) 3.06 K/uL (1.4-6.5); Neutrophils % (auto) 57.7 %; Platelet Count 207 K/uL (130-400); RDW Coefficient of Variation 15.7 % (11.5-14.5); RDW Standard Deviation 46.4 fL (36.4-46.3); Red Blood Count 5.33 M/uL (4.7-6.1)
[2020-08-14 08:00] LABS: INR 3.8 (0.9-1.1); Prothrombin Time 37.3 Seconds (9.0-12.0)
[2020-08-14 08:07] LABS: BUN Creatinine Ratio 14.7 (10-20); Calcium 8.6 mg/dl (8.5-10.1); Creatinine Clr Calc Pharmacy 64.6 ml/min; Est GFR (African American) 51.2; Est GFR (Non-African American) 44.1; Magnesium 2.4 mg/dl (1.8-2.4); Potassium 3.6 mmol/L (3.5-5.1)
[2020-08-14] MEDS: SACUBITRIL-VALSARTAN 49/51 MG TAB PO SCH ×2 (08:09→20:24)
[2020-08-14 08:25] LABS: Troponin I 0.261 ng/ml (0-0.045)
[2020-08-14] MEDS ORDERED: AMIODARONE 200 MG TAB PO SCH (09:00)
--- NOTE | 2020-08-14 09:21 | XRay Report ---
XR chest 1V portable CLINICAL HISTORY: Chest Pain COMPARISON STUDY: Chest radiograph January 11, 2020. FINDINGS: A left subclavian pacer/AICD is in place. There is no pneumothorax or pleural effusion. Emilie vation/eventration of the right hemidiaphragm is noted. There is pulmonary vascular congestion withou t overt pulmonary edema. There is no lobar consolidation. Cardiomegaly is unchanged. IMPRESSION: Pulmonary vascular congestion without overt pulmonary edema. ACT 112: Negative or not required by law. Electronically signed by: Venkat Gomez M.D. 08/14/2020 9:20 AM
--- NOTE | 2020-08-14 12:21 | Electrocardiogram Report ---
Test Reason : Blood Pressure : / mmHG Vent. Rate : 071 BPM Atrial Rate : 071 BPM P-R Int : 254 ms QRS Dur : 110 ms QT Int : 420 ms P-R-T Axes : 092 042 120 degrees QTc Int : 456 ms Poor data quality, interpretation may be adversely affected Atrial-paced rhythm with prolonged AV conduction Incomplete left bundle block T wave abnormality, consider lateral ischemia Abnormal ECG When compared with ECG of 11-JAN-2020 09:16, Electronic atrial pacemaker has replaced Sinus rhythm T wave inversion now evident in Lateral leads Confirmed by Jewel Sanchez ([id number]) on 08/14/2020 12:21:10 PM Referred By: REFERRED SELF Confirmed By:Jewel Sanchez
--- NOTE | 2020-08-14 12:56 | Cardiology Consultation ---
Date of Consultation August 14, 2020 Assessment & Plan (1) Paroxysmal ventricular tachycardia: (2) Left ventricular aneurysm: Mr Trujillo has a longstanding history of what is been deemed to be an idiopathic nonischemic cardiomyopathy with inferior, apical aneurysm despite patent coronary arteries on cardiac catheterization in 2011. He has a longstanding history of severe left ventricular systolic dysfunction, with LVEF of 20 to 25% at the time of his cardiac catheterization in 2011. Most recently calculated LVEF 19% by echocardiogram in June 2020, 20% by gated SPECT June,. Due to the ventricular tachycardia episodes treated with antitachycardia pacing and a defibrillator discharge earlier this year, work-up performed in June 2020 included nuclear stress test with large scar, no superimposed ischemia. He had an episode of ventricular tachycardia successfully treated with antitachycardia pacing on 08/12/2020. Previously, his events have been quite fast, in excess of 180 bpm. The episode that occurred last night however was relatively slow in the range of 160 bpm. The patient's device was interrogated with the help of the Mr Moreno of [employer]. Ventricular tachycardia detection zone was reduced to 146 bpm. Medication adherence once again discussed with the patient. I am going to discontinue his IV amiodarone. Continue oral amiodarone at 200 mg twice daily. Continue metoprolol succinate 50 mg daily. Does not change because I still think we have work to do with the patient remaining adherent to the medication, and I think keeping his medication regimen is straightforward as possible will help with compliance. Although his potassium is 3.6 on admission today, it typically has been an acceptable level, with noted level of 4.9 on 07/27/2020, and 4.4 on 08/12/2020, and therefore I think maintaining his current outpatient regimen without potassium supplementation is appropriate. Patient to remain on telemetry, if he remains free of additional arrhythmia, will reconsider discharge on 08/15/2020. History of Present Illness Attending Physician: Vicente Dupont MD History of Present Illness Alexander Trujillo is a 60-year-old male seen in cardiology consultation per the request of Dr. Romano for the evaluation of near syncope/dizziness, with history of complex ventricular arrhythmias and cardiomyopathy. The patient is well-known to our service. He has a longstanding history of a nonischemic idiopathic cardiomyopathy with an expanded apical aneurysm initially diagnosed in August,. He has a history of non obstructive coronary heart disease by remote and repeat cardiac catheterization, most recently in Mar, 2012. The patient is status post implantation of a dual-chamber [employer] pacemaker ICD April, (incomplete left bundle branch block, QRS duration 110 ms). He is on Coumadin for anticoagulation given his history of paroxysmal atrial fibrillation. He recently established with Dr. Ibarra of the advanced heart failure service on 07/15/2020. At the time of his June 2020 appointment device interrogation demonstrated an episode of VT/VF on 02/21/2020 lasting 8 seconds in duration with a ventricular rate of 222 bpm which was successfully treated with antitachycardia pacing. Another episode of VT/VF occurred on 05/14/2020 with maximum ventricular rate of 250 bpm lasting 16 seconds which was treated with a single 36.2 J shock. At the time of the June, follow-up visit, recent medication nonadherence noted. On 08/12/2020 he was helping his daughter with some remodeling, and he was up on a ladder, when he suffered a witnessed syncopal episode. He was seen as an urgent visit by Titi Shankar PA-C in urgent outpatient visit later that day and device interrogation revealed an episode of ventricular tachycardia that occurred that day at 14: 16 with a maximum rate of 180 bpm treated with burst pacing and resolution with successful episcopal of sinus rhythm. Patient had notably not been taking his medications including metoprolol on a regular routine, for example it was 4 PM at the time of his visit, and he had yet to take his metoprolol yet that day. Medication adherence was once again reinforced. Yesterday, 08/13/2020 he was feeling quite well during the day. At just after 6 PM he was relaxing in bed when he noted frances dizziness and feeling like he was going to pass out. The sensation subsequently dissipated. His daughter, Jane, brought him to the emergency room and upon arrival he was feeling poorly, and telemetry revealed sinus rhythm with frequent PVCs in a pattern of ventricular bigeminy. Dr Tejada contacted me as the hull builder on-call and after discussion regarding his history, the patient was admitted and kept on amiodarone infusion overnight, with no ventricular arrhythmias noted since initiation. Follow-up device interrogation has yielded a 14-second episode of ventricular tachycardia that occurred on 08/13/2020 at 18: 13 hours with relatively slow ventricular rate in the range of 160 bpm. This was below the set treatment threshold for the device. The event terminated spontaneously without device treatment. At present, the patient feels well. He denies any recent overall change in his activity tolerance, or recent anginal symptoms. Allergies Allergy/AdvReac Type Severity Reaction Status Date / Time No Known Allergies Allergy Verified 08/13/20 21:01 Home Medications Home Medications Medication Instructions Recorded Confirmed Type metoprolol tartrate 50 mg PO HS 08/18/19 08/13/20 History allopurinol 300 mg PO HS 09/07/19 08/13/20 History amiodarone 200 mg PO BID 09/07/19 08/13/20 History hydrocodone-acetaminophen 1 tab PO Q4H PRN 09/07/19 08/13/20 History warfarin 5 mg PO Q2D 09/07/19 08/13/20 History warfarin 7.5 mg PO Q2D 09/07/19 08/13/20 History aspirin [Aspirin Low Dose] 81 mg PO HS 09/17/19 08/13/20 History levothyroxine 112 mcg PO HS 01/11/20 08/13/20 History furosemide [Lasix] 40 mg PO DAILY 08/13/20 08/13/20 History meclizine 25 mg PO TID PRN 08/13/20 08/13/20 History nitroglycerin [Nitrostat] 0.4 mg SUBLINGUAL UD PRN 08/13/20 08/13/20 History sacubitril-valsartan [Entresto] 1 tab PO BID 08/13/20 08/13/20 History Patient History Medical History Afib CAD (coronary artery disease) non-obstructive Cardiomyopathy CHF (congestive heart failure) hx/no recent issues Chronic back pain Depression Gout History of kidney stones Hypertension Hypothyroidism Left ventricular aneurysm found around time of [place] (15+ years ago)- cardio monitoring Myocardial Infarction 15+ years ago- medically managed Presence of combination internal cardiac defibrillator (ICD) and pacemaker Implanted 2013 (follows with cardiology/Dr. Jaffe)- last check 01/2019 Sleep apnea CPAP Surgical History H/O arthroscopic knee surgery multiple on bilateral knees H/O neck surgery History of cardiac cath 2011= NO STENTS History of cystoscopy History of esophagogastroduodenoscopy (EGD) History of implantable cardioverter-defibrillator (ICD) placement History of laminectomy L4-L5 History of lithotripsy History of lumbar surgery 09/17/19 Grade 1 view Mac 3, magnet placed on L chest wall during procedure History of tonsillectomy Status post uvulopalatopharyngoplasty Family History Father FHx: lung cancer Social History Smoking Status: Unknown if ever smoked Second Hand Exposure: No; Do You Dip or Chew Tobacco: No; Tobacco Cessation Education Requested by Patient: No Hx Alcohol Use: No Hx Substance Use: No Preferred Language: Tamazight Communication Ability: Effective Hospital Recruiter Required: No Beliefs That Will Affect Care: None Current Living Situation: Alone Current Living Situation Comment: Family in duplex Other Information That Helps Us Care for You: No Feels Safe at Home: Yes Safety Concerns: Feels Safe At This Time Assistive Devices: None Review of Systems Review of Systems: All systems reviewed & are unremarkable except as noted in HPI & below Physical Exam Physical Exam: Temp Pulse Resp BP Pulse Ox 36.3 C L 65 18 122/72 96 08/14/20 12:30 08/14/20 12:30 08/14/20 12:30 08/14/20 12:30 08/14/20 12:30 Constitutional: WD/WN, vitals as above Respiratory: normal respiratory effort, lungs clear to auscultation Cardiovascular: RRR, no murmur, no edema Chest (Breasts): Additional Comments: Well-healed left infraclavicular device pocket, no erythema Gastrointestinal (Abdomen): normal bowel sounds, soft, nontender, no hepatosplenomegaly Neurologic: PERRL, EOMI, accommodation nl, no face palsy, no dysarthria Results & Data ([facility]) Vital Signs (Past 12 Hours) Vital Signs Temp Pulse Resp BP Pulse Ox 08/14/20 08:08 36.6 C 61 18 123/81 95 08/14/20 03:36 36.9 C 70 18 129/71 96 Laboratory Results INR 3.8 Potassium 3.6 Creatinine 1.65, relatively stable compared to outpatient baseline of 1.8 Magnesium 2.4 AST, ALT, alkaline phosphatase within normal limits Troponin I mildly elevated at 0.2.62, 0.266, and 0.261 ng/ ml Diagnostic Findings Pharmacologic nuclear stress test performed 06/22/2020 as an outpatient: Large sized fixed inferoseptal, inferior, inferolateral perfusion defect, no superimposed ischemia, LVEF 20% Summary of transthoracic echocardiogram performed as an outpatient 06/22/2020: There was normal sinus rhythm during the examination. Diffuse myocardial thinning is present. There is diffuse hypokinesis to dyskinesis. There is a moderate sized apical and inferior aneurysm. The left ventricular systolic function is severely reduced. Calculated LV ejection Fraction = 19% (three dimensional volumes). The presence of a laminar apical mural thrombus at the level of the left ventricular aneurysm cannot be excluded. Moderate mitral regurgitation is present. The mitral regurgitation is due to ischemic cardiomyopathy. Mild tricuspid regurgitation is present. The estimated pulmonary artery systolic pressure is 28 mm Hg (normal). Compared to the prior study dated 03/18/2014, the calculated LVEF was 26% at that time.
--- NOTE | 2020-08-14 20:02 | Hospitalist Progress Note ---
Date of Service August 14, 2020 Assessment & Plan (1) Paroxysmal ventricular tachycardia: Recurrent VT episodes hx chronic systolic heart failure secondary to idiopathic cardiomyopathy (EF 19% TTE 2019) status post ICD, some congestion on x-ray --Disk Sander Dr. Acuna consulted status post pacemaker interrogation Ventricular tachycardia detection zone was reduced to 146 bpm Amiodarone drip discontinued Patient continued on usual dose of amiodarone and metoprolol Anticipate discharge tomorrow when medically stable Troponin elevation secondary to recurrent VT in the setting of chronic kidney dysfunction --Troponin remained flat at 0.2 x 3 sets hx nonobstructive CAD --Acute coronary syndrome ruled out PAF on Coumadin, paced rhythm, INR slightly supratherapeutic --INR 3.8 Monitor history LV aneurysm/apical thrombus as per records --On Coumadin per above moderate mitral regurgitation HTN, stable hyperlipidemia on statin Rx MARIANNA status post surgery on CPAP CRI, creatinine at baseline Hyperglycemia rule out DM --A1c pending DVT prophylaxis. Coumadin INR goal between 2 and 3 Full code Disposition Anticipate discharge home tomorrow when cleared by lead pourer Admission and Anticipated Discharge Date Admission Date: August 13, 2020 Subjective Follow-up for syncope, recurrent V. tach Seen resting in bed, in good spirits, watching TV, comfortable States he feels better today overall Had an episode of lightheadedness lasting for about less than 10 seconds early evening, monitor worker reviewed, no signs of arrhythmia noted during that period Denies shortness of breath, palpitations, chest pain No other symptoms Review of Systems Review of Systems: All systems reviewed & are unremarkable except as noted in Subjective Physical Exam Physical Exam: General- oriented x 3, not in distress, speaks in sentences with no effort or accessory muscle use Head- atraumatic Eyes- PERRL, EOMI, anicteric ENT- oropharynx clear Neck- supple, no JVD, no adenopathy, no thyromegaly; carotids +2/2, no bruits appreciated Lungs- clear to auscultation bilaterally, no rales/wheezes Heart- normal rate, regular rhythm; no murmur, no gallop, no rub appreciated Abdomen- normal bowel sounds, nondistended, soft, nontender, no masses or hepatosplenomegaly Extremities- no pretibial edema, no calf tenderness; peripheral pulses intact Neuro- alert, oriented x 3; CN 2-12 grossly intact; motor 5/5 bilaterally;sensation 100% on all extremities; no other gross focal neurologic deficits Skin- warm & dry Results & Data Results & Data ([facility]) Vital Signs (Past 12 Hours) Vital Signs Temp Pulse Pulse Resp BP Pulse Ox 08/14/20 19:29 36.5 C 61 20 128/80 95 08/14/20 15:50 36.7 C 67 21 134/80 91 08/14/20 15:43 60 08/14/20 12:30 36.3 C L 65 18 122/72 96 08/14/20 08:08 36.6 C 61 18 123/81 95 Laboratory Results Laboratory Results - last 24 hr 08/13/20 08/13/20 08/13/20 20:25 20:25 20:25 WBC 5.28 RBC 5.50 Hgb 14.6 POC Hgb Hct 44.4 POC Hct MCV 80.7 MCH 26.5 MCHC 32.9 RDW Std Deviation 45.4 RDW Coeff of Chris 15.5 H Plt Count 227 MPV 9.5 Immature Gran % (Auto) 0.2 Neut % (Auto) 63.8 Lymph % (Auto) 15.7 Callaway % (Auto) 14.4 Eos % (Auto) 5.5 Baso % (Auto) 0.4 Neut # (Auto) 3.37 Lymph # (Auto) 0.83 L Callaway # (Auto) 0.76 H Eos # (Auto) 0.29 Baso # (Auto) 0.02 Immature Gran # (Auto) 0.01 PT 36.6 H INR 3.7 H APTT 46.1 H* PTT Ratio 1.7 POC Sodium Sodium 139 POC Potassium Potassium 3.6 POC Chloride Chloride 106 Carbon Dioxide 28 POC Total CO2 Anion Gap 5.0 POC Anion Gap POC BUN BUN 24 H Creatinine 1.72 H POC Creatinine Est Cr Clr Drug Dosing 63.0 Est GFR ( Amer) 48.7 Est GFR (Non-Af Amer) 42.0 BUN/Creatinine Ratio 13.7 Glucose 107 H POC Glucose (other) Estimat Average Glucose Hemoglobin A1c Calcium 8.7 POC Ioniz Calcium Rebekah Phosphorus 3.1 Magnesium 1.9 Total Bilirubin 0.4 AST 24 ALT 26 Alkaline Phosphatase 108 Total Creatine Kinase 118 CK-MB (CK-2) 1.8 CK/CKMB % Calc 1.5 Troponin I 0.262 H* Total Protein 8.3 H Albumin 3.5 Globulin 4.8 H Albumin/Globulin Ratio 0.7 L Lipase 214 Amiodarone Desmethylamiodarone Hepatitis C Ab Screen 08/13/20 08/13/20 08/13/20 20:38 21:50 23:45 WBC RBC Hgb POC Hgb 15.3 Hct POC Hct 45 MCV MCH MCHC RDW Std Deviation RDW Coeff of Chris Plt Count MPV Immature Gran % (Auto) Neut % (Auto) Lymph % (Auto) Callaway % (Auto) Eos % (Auto) Baso % (Auto) Neut # (Auto) Lymph # (Auto) Callaway # (Auto) Eos # (Auto) Baso # (Auto) Immature Gran # (Auto) PT INR APTT PTT Ratio POC Sodium 140 Sodium POC Potassium 3.8 Potassium POC Chloride 101 Chloride Carbon Dioxide POC Total CO2 26 Anion Gap POC Anion Gap 18.0 POC BUN 25 H BUN Creatinine POC Creatinine 1.7 H Est Cr Clr Drug Dosing Est GFR ( Amer) Est GFR (Non-Af Amer) BUN/Creatinine Ratio Glucose POC Glucose (other) 82 Estimat Average Glucose Hemoglobin A1c Calcium POC Ioniz Calcium Rebekah 1.18 Phosphorus Magnesium Total Bilirubin AST ALT Alkaline Phosphatase Total Creatine Kinase CK-MB (CK-2) CK/CKMB % Calc Troponin I 0.266 H* Total Protein Albumin Globulin Albumin/Globulin Ratio Lipase Amiodarone Pending Desmethylamiodarone Pending Hepatitis C Ab Screen 08/14/20 08/14/20 08/14/20 06:54 06:54 06:55 WBC 5.30 RBC 5.33 Hgb 14.3 POC Hgb Hct 43.5 POC Hct MCV 81.6 MCH 26.8 MCHC 32.9 RDW Std Deviation 46.4 H RDW Coeff of Chris 15.7 H Plt Count 207 MPV 10.1 Immature Gran % (Auto) 0.4 Neut % (Auto) 57.7 Lymph % (Auto) 23.2 Callaway % (Auto) 11.9 Eos % (Auto) 6.4 Baso % (Auto) 0.4 Neut # (Auto) 3.06 Lymph # (Auto) 1.23 [place]away # (Auto) 0.63 H Eos # (Auto) 0.34 Baso # (Auto) 0.02 Immature Gran # (Auto) 0.02 PT INR APTT PTT Ratio POC Sodium Sodium POC Potassium Potassium POC Chloride Chloride Carbon Dioxide POC Total CO2 Anion Gap POC Anion Gap POC BUN BUN Creatinine POC Creatinine Est Cr Clr Drug Dosing Est GFR ( Amer) Est GFR (Non-Af Amer) BUN/Creatinine Ratio Glucose POC Glucose (other) Estimat Average Glucose Pending Hemoglobin A1c Pending Calcium POC Ioniz Calcium Rebekah Phosphorus Magnesium Total Bilirubin AST ALT Alkaline Phosphatase Total Creatine Kinase CK-MB (CK-2) CK/CKMB % Calc Troponin I Total Protein Albumin Globulin Albumin/Globulin Ratio Lipase Amiodarone Desmethylamiodarone Hepatitis C Ab Screen Neg 08/14/20 08/14/20 06:55 06:55 WBC RBC Hgb POC Hgb Hct POC Hct MCV MCH MCHC RDW Std Deviation RDW Coeff of Chris Plt Count MPV Immature Gran % (Auto) Neut % (Auto) Lymph % (Auto) [place] % (Auto) Eos % (Auto) Baso % (Auto) Neut # (Auto) Lymph # (Auto) Callaway # (Auto) Eos # (Auto) Baso # (Auto) Immature Gran # (Auto) PT 37.3 H INR 3.8 H APTT PTT Ratio POC Sodium Sodium 140 POC Potassium Potassium 3.6 POC Chloride Chloride 106 Carbon Dioxide 29 POC Total CO2 Anion Gap 6.0 POC Anion Gap POC BUN BUN 24 H Creatinine 1.65 H POC Creatinine Est Cr Clr Drug Dosing 64.6 Est GFR ( Amer) 51.2 Est GFR (Non-Af Amer) 44.1 BUN/Creatinine Ratio 14.7 Glucose 99 POC Glucose (other) Estimat Average Glucose Hemoglobin A1c Calcium 8.6 POC Ioniz Calcium Rebekah Phosphorus Magnesium 2.4 Total Bilirubin AST ALT Alkaline Phosphatase Total Creatine Kinase CK-MB (CK-2) CK/CKMB % Calc Troponin I 0.261 H* Total Protein Albumin Globulin Albumin/Globulin Ratio Lipase Amiodarone Desmethylamiodarone Hepatitis C Ab Screen
[2020-08-14] MEDS ORDERED: ASPIRIN 81 MG ECTAB PO SCH (21:00)
[2020-08-14] MEDS ORDERED: LEVOTHYROXINE SODIUM 112 MCG TABLET PO SCH (21:00)
[2020-08-14] MEDS ORDERED: allopurinoL 300 MG TAB PO SCH (21:00)
[2020-08-14] MEDS ORDERED: METOPROLOL TARTRATE 50 MG TAB PO SCH (21:00)
[2020-08-15 06:11] LABS: Estimated Average Glucose 117 mg/dl; Hemoglobin A1C 5.7 % (4.5-5.6)
[2020-08-15] MEDS: AMIODARONE 200 MG TAB PO SCH (09:14)
[2020-08-15] MEDS: SACUBITRIL-VALSARTAN 49/51 MG TAB PO SCH (09:14)
--- NOTE | 2020-08-15 11:07 | Cardiology Progress Note ---
Date of Service August 15, 2020 Assessment & Plan (1) Paroxysmal ventricular tachycardia: (2) Left ventricular aneurysm: Mr Trujillo has a longstanding history of what is been deemed to be an idiopathic nonischemic cardiomyopathy with inferior, apical aneurysm despite patent coronary arteries on cardiac catheterization in 2011. He has a longstanding history of severe left ventricular systolic dysfunction, with LVEF of 20 to 25% at the time of his cardiac catheterization in 2011. Most recently calculated LVEF 19% by echocardiogram in June 2020, 20% by gated SPECT June,. Due to the ventricular tachycardia episodes treated with antitachycardia pacing and a defibrillator discharge earlier this year, work-up performed in June 2020 included nuclear stress test with large scar, no superimposed ischemia. He had an episode of ventricular tachycardia successfully treated with antitachycardia pacing on 08/12/2020. Previously, his events have been quite fast, in excess of 180 bpm. The episode that occurred the evening of admission however was relatively slow in the range of 160 bpm. On 08/14/2020, the patient's device was interrogated with the help of the Mr Moreno of [employer]. Ventricular tachycardia detection zone was reduced to 146 bpm. Update CMP, magnesium level, INR today. As long as labs are stable, anticipate discharge to home. Follow-up plan: Patient already has follow-[place] with Dr Ibarra of [facility] [place] [facility] [place] Admission and Anticipated Discharge Date Admission Date: August 13, 2020 Subjective Patient seen in follow-up. He is feeling well. He is enjoying his breakfast of contraband frosted pop tarts. Telemetry reveals sinus rhythm with occasional atrial ventricular pacing, rare isolated PVCs with no recurrence of ventricular arrhythmias. Review of Systems Review of Systems: All systems reviewed & are unremarkable except as noted in HPI & below Physical Exam Physical Exam: Temp Pulse Resp BP Pulse Ox 36.4 C L 62 19 135/75 96 08/15/20 08:16 08/15/20 09:15 08/15/20 08:16 08/15/20 08:16 08/15/20 08:16 Constitutional: WD/WN, vitals as above Respiratory: normal respiratory effort, lungs clear to auscultation Cardiovascular: RRR, no murmur, no edema Gastrointestinal (Abdomen): normal bowel sounds, soft, nontender, no hepatosplenomegaly Neurologic: PERRL, EOMI, accommodation nl, no face palsy, no dysarthria Results & Data ([facility]) Vital Signs (Past 12 Hours) Vital Signs Temp Pulse Pulse Resp BP Pulse Ox 08/15/20 09:15 62 08/15/20 08:16 36.4 C L 58 L 19 135/75 96 08/15/20 04:35 36.5 C 69 18 134/70 96 08/14/20 23:46 36.7 C 60 18 128/80 95 08/14/20 23:00 60 Laboratory Results Intake and Output 08/14/20 08/15/20 08/15/20 22:59 06:59 14:59 Intake Total 422 / 622 Balance 422 / 622 Intake: Oral 422 / 422 Other: Weight 138.4 kg Weight Measurement Method Built in [facility]
[2020-08-15 11:38] LABS: Albumin Level 3.1 gm/dl (3.4-5.0); BUN Creatinine Ratio 13.2 (10-20); Calcium 8.7 mg/dl (8.5-10.1); Creatinine Clr Calc Pharmacy 67.2 ml/min; Est GFR (African American) 52.3; Est GFR (Non-African American) 45.1; Magnesium 2.4 mg/dl (1.8-2.4); Potassium 3.7 mmol/L (3.5-5.1)
[2020-08-15 11:39] LABS: INR 3.1 (0.9-1.1); Prothrombin Time 30.8 Seconds (9.0-12.0)
[2020-08-15 11:41] LABS: Albumin Globulin Ratio 0.7 (0.9-2); Bilirubin,Total 0.3 mg/dl (0.2-1); Globulin 4.3 gm/dl (2.5-4.0); Total Protein 7.4 gm/dl (6.4-8.2)
--- NOTE | 2020-08-15 12:48 | Communication Note ---
Date of Service: August 15, 2020 Add potassium chloride 10 mEq daily. OK to discharge with plan as outlined in my prior progress note from earlier today. Labs reviewed: INR 3.1 Cardiac Enzymes 08/15/20 Range/Units 11:10 AST 26 (15-37) U/L Coagulation 08/15/20 Range/Units 11:10 PT 30.8 H (9.0-12.0) Seconds Comprehensive Metabolic Panel 08/15/20 Range/Units 11:10 Sodium 140 (136-145) mmol/L Potassium 3.7 (3.5-5.1) mmol/L Chloride 107 (98-107) mmol/L Carbon Dioxide 30 (21-32) mmol/L BUN 21 H (7-18) mg/dl Creatinine 1.62 H (0.6-1.4) mg/dl Glucose 118 H (70-99) mg/dl Calcium 8.7 (8.5-10.1) mg/dl AST 26 (15-37) U/L ALT 25 (12-78) U/L Alkaline Phosphatase 105 (45-117) U/L Total Protein 7.4 (6.4-8.2) gm/dl Albumin 3.1 L (3.4-5.0) gm/dl Intake and Output 08/14/20 08/15/20 08/15/20 22:59 06:59 14:59 Intake Total 422 / 622 Balance 422 / 622 Intake: Oral 422 / 422 Other: Weight 138.4 kg Weight Measurement Method Built in [facility]
[2020-08-15] MEDS ORDERED: POTASSIUM CHLORIDE 10 MEQ TABCR PO SCH (13:00)
--- NOTE | 2020-08-15 13:57 | Hospitalist Progress Note ---
Date of Service August 15, 2020 Assessment & Plan (1) Paroxysmal ventricular tachycardia: Recurrent VT episodes hx chronic systolic heart failure secondary to idiopathic cardiomyopathy (EF 19% TTE 2019) status post ICD, some congestion on x-ray --In Store Representative Dr. Acuna consulted status post pacemaker interrogation Ventricular tachycardia detection zone was reduced to 146 bpm Amiodarone drip discontinued Patient continued on usual dose of amiodarone and metoprolol Potassium 10meq daily added for K 3.7 ff up with In Store Representative as scheduled Troponin elevation secondary to recurrent VT in the setting of chronic kidney dysfunction --Troponin remained flat at 0.2 x 3 sets hx nonobstructive CAD --Acute coronary syndrome ruled out PAF on Coumadin, paced rhythm, INR slightly supratherapeutic --INR 3.1 d/c on Coumadin 2.5mg po Mondays, 5mg other days INR this week, Coumadin clinic notified to ff up patient this week history LV aneurysm/apical thrombus as per records --On Coumadin per above moderate mitral regurgitation HTN, stable hyperlipidemia on statin Rx MARIANNA status post surgery on CPAP CRI, creatinine at baseline Pre DM --A1c 5.7 -- ff up as outpatient d/c home ff up with PCP in 1 week per DC instructions ff up with Cardilogist as scheduled Admission and Anticipated Discharge Date Admission Date: August 13, 2020 Subjective ff up for vaishnavi barnes seen resting in bed, comfortable states he feels fine overall denies palpitations, dizziness, chest pain, dyspnea no other symptoms states he is ready and would like to be discharged today Review of Systems Review of Systems: All systems reviewed & are unremarkable except as noted in Subjective Physical Exam Physical Exam: General- oriented x 3, not in distress, speaks in sentences with no effort or accessory muscle use Eyes- anicteric Neck- no JVD Lungs- clear breath sounds bilaterally, no rales/wheezes Heart- normal rate, regular rhythm; no murmurs Abdomen- normal bowel sounds, nondistended, soft, nontender Extremities- no pretibial edema, no calf tenderness Neuro- alert, oriented x 3; no gross focal neurologic deficits Skin- warm & dry Results & Data Results & Data ([facility]) Vital Signs (Past 12 Hours) Vital Signs Temp Pulse Resp BP Pulse Ox 08/15/20 11:51 36.4 C L 62 20 124/81 95 08/15/20 09:15 62 08/15/20 08:16 36.4 C L 58 L 19 135/75 96 08/15/20 04:35 36.5 C 69 18 134/70 96 Laboratory Results Laboratory Results - last 24 hr 08/14/20 08/15/20 08/15/20 06:54 11:10 11:10 PT 30.8 H INR 3.1 H Sodium 140 Potassium 3.7 Chloride 107 Carbon Dioxide 30 Anion Gap 4.0 BUN 21 H Creatinine 1.62 H Est Cr Clr Drug Dosing 67.2 Est GFR ( Amer) 52.3 Est GFR (Non-Af Amer) 45.1 BUN/Creatinine Ratio 13.2 Glucose 118 H Estimat Average Glucose 117 Hemoglobin A1c 5.7 H Calcium 8.7 Magnesium 2.4 Total Bilirubin 0.3 AST 26 ALT 25 Alkaline Phosphatase 105 Total Protein 7.4 Albumin 3.1 L Globulin 4.3 H Albumin/Globulin Ratio 0.7 L
--- NOTE | 2020-08-15 14:03 | Discharge Summary ---
Date of Service August 15, 2020 Admission HPI Per Admitting Provider History obtained from patient and records. Medical history significant for chronic systolic heart failure secondary to idiopathic cardiomyopathy (EF 19% TTE 2019) status post ICD, nonobstructive CAD, hx NSVT, PAF on Coumadin, history LV aneurysm/apical thrombus as per records, moderate mitral regurgitation, HTN, hyperlipidemia, MARIANNA status post surgery on CPAP, pulmonary hypertension as per records, CRI (baseline creatinine 1.8). Last confinement September 2019 under Orthopedics spine service for elective back surgery. Yesterday patient was helping his daughter install insulation at her home when he experienced lightheadedness followed by a witnessed syncopal event. Preceding sensation similar to abnormal fast heartbeat episode in the past as per patient. Patient was unconscious for about 11 seconds as per patient's daughter. Patient denies chest pain, S OB, headache. Although compliant with home medications, patient admits to not being able to take heart medications at prescribed times. [place] [facility] [place]. Device interrogation revealed episode of V. tach receiving burst pacing with resolution and mandaen of normal sinus rhythm. Provider recommended lab w ork and initiation of remote device monitoring capability which patient declined in the past. Consider titration of Toprol as per documentation. Patient instructed not to drive interim. Today patient with recurrent episodes of dizziness and near syncopal episodes even during rest. No chest pain although occasional sensation of throat discomfort. Patient brought to the ER by daughter. 40 beat VT episode noted without shock on initial [employer] device interrogation. IV Amiodarone infusion initiated at the ER as per lawn care specialist recommendation. Medical History as above Surgical History : UP3, tonsillectomy/adenoidectomy, ICD placement Family History : Lung cancer, dementia Personal/Social history : Non-smoker, no EtOH intake, prior work as an [employer] Admission Exam Per Admitting Provider GENERAL: Comfortable, pleasant, morbidly obese, no respiratory distress SKIN: Normal color, warm HEENT: Bespectacled, [place] palpebral conjunctivae, no ptosis, moist buccal mucosa NECK : Supple, short neck, no tenderness CHEST : Decreased breath sounds , no tenderness HEART : Diminished S1-S2, systolic murmur ABDOMEN: distention, nontender EXTREMITIES : Minimal LE swelling, no LE tenderness, no other conspicuous deformities noted NEUROLOGIC : Coherent, no facial asymmetry, no other gross focality Principal Diagnosis PAROXYSMAL VENTRICULAR TACHYCARDIA Discharge Exam General- oriented x 3, not in distress, speaks in sentences with no effort or accessory muscle use Eyes- anicteric Neck- no JVD Lungs- clear breath sounds bilaterally, no rales/wheezes Heart- normal rate, regular rhythm; no murmurs Abdomen- normal bowel sounds, nondistended, soft, nontender Extremities- no pretibial edema, no calf tenderness Neuro- alert, oriented x 3; no gross focal neurologic deficits Skin- warm & dry Discharge Data Allergies Allergy/AdvReac Type Severity Reaction Status Date / Time No Known Allergies Allergy Verified 08/13/20 21:01 Consultations 08/13/20 20:15 Consult Cardiology Stat 08/13/20 20:42 ED Decision to Admit Stat Hospital Course (1) Paroxysmal ventricular tachycardia: Recurrent VT episodes hx chronic systolic heart failure secondary to idiopathic cardiomyopathy (EF 19% TTE 2019) status post ICD, some congestion on x-ray --Director Of Product Marketing Dr. Acuna consulted status post pacemaker interrogation Ventricular tachycardia detection zone was reduced to 146 bpm Amiodarone drip discontinued Patient continued on usual dose of amiodarone and metoprolol Potassium 10meq daily added for K 3.7 ff up with Director Of Product Marketing as scheduled Troponin elevation secondary to recurrent VT in the setting of chronic kidney dysfunction --Troponin remained flat at 0.2 x 3 sets hx nonobstructive CAD --Acute coronary syndrome ruled out PAF on Coumadin, paced rhythm, INR slightly supratherapeutic --INR 3.1 d/c on Coumadin 2.5mg po Mondays, 5mg other days INR this week, Coumadin clinic notified to ff up patient this week history LV aneurysm/apical thrombus as per records --On Coumadin per above moderate mitral regurgitation HTN, stable hyperlipidemia on statin Rx MARIANNA status post surgery on CPAP CRI, creatinine at baseline Pre DM --A1c 5.7 -- ff up as outpatient d/c home ff up with PCP in 1 week per DC instructions ff up with Cardilogist as scheduled Total Time Total Time Spent Total Time Spent (In Minutes): 40 MINUTES Discharge Plan Discharge Items Patient Disposition: Home - Self-Care Reason For Visit: VT Discharge Diagnosis: PAROXYSMAL VENTRICULAR TACHYCARDIA Activity: Resume your previous activity Lifting: Wait until after follow-up appointment Exercise/Sports: Wait until after follow-up appointment Driving/Machine Use: NO DRIVING UNTIL RE-EVALUATED AND ALLOWED BY PRIMARY CARE PHYSICIAN Non-emergency contact: Primary Care Provider and Director Of Product Marketing Call non-emergency contact if: you have any medication questions, your symptoms worsen and you have a fever Follow-up/Referrals: Titi Rodriguez MD [Primary Care Provider] - 08/22/20 11:20 am (PT/INR lab draw for [facility] 08/17/2020 10:00 AM Provider Laboratory [place] [facility] [place] ) Diet: Heart Healthy Addtl Attending Provider Instructions: PLEASE REVIEW YOUR NEW MEDICATION LIST AND FOLLOW INSTRUCTIONS CAREFULLY. YOUR NEW MEDICATIONS INCLUDE: POTASSIUM TABLET- supplement to keep potassium level normal COUMADIN CHANGED TO 2.5MG ON MONDAYS, 5MG OTHER DAYS. [facility] PHARMACIST/COUMADIN CLINIC WILL BE CALLING YOU SOON FOR ADVICE REGARDING BLOODWORK AND COUMADIN DOSE. CALL PRIMARY CARE PHYSICIAN OR PROCESSING SPECIALIST, OR RETURN TO THE ER IF WITH RECURRENCE OF DIZZINESS, PALPITATIONS. CALL 911 IMMEDIATELY IF WITH RECURRENCE OF LOSS OF CONSCIOUSNESS. Pending Studies at Discharge: Yes Studies:: PT/INR lab draw for [facility] 08/17/2020 10:00 AM Provider Laboratory [place] [facility] [place] Stand-Alone Forms: My [facility] [email or web address], Smoking Cessation Medications and DC Order Prescriptions: New potassium chloride [Klor-Con M10] 10 mEq Tablet,Er Particles/Crystals 10 meq PO DAILY Qty: 30 RF: 2 warfarin 5 mg tablet 5 mg PO UD Qty: 30 RF: 0 Continued metoprolol tartrate 50 mg Tablet 50 mg PO HS RF: 0 amiodarone 200 mg Tablet 200 mg PO BID RF: 0 hydrocodone-acetaminophen 5-325 mg Tablet 1 tab PO Q4H PRN (Reason: Pain) RF: 0 allopurinol 300 mg Tablet 300 mg PO HS RF: 0 aspirin [Aspirin Low Dose] 81 mg Tablet,Delayed Release (Dr/Ec) 81 mg PO HS RF: 0 levothyroxine 112 mcg tablet 112 mcg PO HS RF: 0 furosemide [Lasix] 40 mg tablet 40 mg PO DAILY RF: 0 Entresto 49-51 mg tablet 1 tab PO BID RF: 0 meclizine 25 mg Tablet 25 mg PO TID PRN (Reason: dizzyness) RF: 0 nitroglycerin [Nitrostat] 0.4 mg Tablet, Sublingual 0.4 mg sublingual UD PRN (Reason: Chest Pain) RF: 0 Discontinued warfarin 5 mg Tablet 5 mg PO Q2D RF: 0 warfarin 5 mg Tablet 7.5 mg PO Q2D RF: 0 Discharge Orders: Discharge Order (Routine); Ordered 08/15/20 Ordered By: Vicente Dupont Admission Data Admit Date/Time: 08/13/20 22:55 Attending Provider: Vicente Dupont Admit Provider: Artie Romano Primary Care Provider: Titi Rodriguez Other Providers: Artie Romano ; Curtis Acuna
== END 2020-08-15 14:55 | disposition home or self-care (01) | DRG 309 ==
LOC: ED 19:43 → SUATTDRO 22:55 → 2S 22:55

== ENCOUNTER 2020-10-07 08:08 | Inpatient (IN) ==
--- NOTE | 2020-10-07 08:26 | Emergency Department Note ---
History of Present Illness General Chief complaint: Arrhythmia/Palpitations Stated complaint: HEART/SHOCK Time Seen by Provider: 10/07/20 08:18 Source: patient, RN notes reviewed and old records reviewed Mode of arrival: ambulatory Limitations: no limitations History of Present Illness Provider complaint: Defibrillator fired Onset (ago): hour(s) less than 1 Location: chest Radiation: non-radiation Pain Consistency: + now resolved Current Pain Intensity: 0 Associated symptoms: + other (dizziness) Treatments prior to arrival: none This 60-year-old male who presents emergency department after his defibrillator fired. Patient reports for the past month he has been getting dizzy. He reported getting dizzy this morning when the defibrillator went off. He does not currently denies any chest pain or shortness of breath. He is currently symptom-free. Home Medications Medication Instructions Recorded Confirmed Type metoprolol tartrate 75 mg PO HS 08/18/19 10/07/20 History allopurinol 300 mg PO HS 09/07/19 10/07/20 History amiodarone 300 mg PO BID 09/07/19 10/07/20 History hydrocodone-acetaminophen 1 tab PO Q4H PRN 09/07/19 10/07/20 History aspirin [Aspirin Low Dose] 81 mg PO HS 09/17/19 10/07/20 History levothyroxine 112 mcg PO HS 01/11/20 10/07/20 History Entresto 1 tab PO BID 08/13/20 10/07/20 History furosemide [Lasix] 40 mg PO PM 08/13/20 10/07/20 History nitroglycerin [Nitrostat] 0.4 mg SUBLINGUAL UD PRN 08/13/20 10/07/20 History allopurinol 100 mg PO HS 10/07/20 10/07/20 History warfarin 5 mg PO PM 10/07/20 10/07/20 History Allergies Allergy/AdvReac Type Severity Reaction Status Date / Time No Known Allergies Allergy Verified 10/07/20 09:46 Past Med/Surg History Medical History Afib CAD (coronary artery disease) non-obstructive Cardiomyopathy CHF (congestive heart failure) hx/no recent issues Chronic back pain Depression Gout History of kidney stones Hypertension Hypothyroidism Left ventricular aneurysm found around time of [place] (15+ years ago)- cardio monitoring Myocardial Infarction 15+ years ago- medically managed Presence of combination internal cardiac defibrillator (ICD) and pacemaker Implanted 2013 (follows with cardiology/Dr. Jaffe)- last check 01/2019 Sleep apnea CPAP Surgical History H/O arthroscopic knee surgery multiple on bilateral knees H/O neck surgery History of cardiac cath 2011= NO STENTS History of cystoscopy History of esophagogastroduodenoscopy (EGD) History of implantable cardioverter-defibrillator (ICD) placement History of laminectomy L4-L5 History of lithotripsy History of lumbar surgery 09/17/19 Grade 1 view Mac 3, magnet placed on L chest wall during procedure History of tonsillectomy Status post uvulopalatopharyngoplasty Family History Father FHx: lung cancer Social History Smoking Status: Former smoker Second Hand Exposure: No; Do You Dip or Chew Tobacco: No; Tobacco Cessation Education Requested by Patient: No Hx Alcohol Use: No Hx Substance Use: No Preferred Language: Telugu Communication Ability: Effective Sales Program Coordinator Required: No Beliefs That Will Affect Care: None Current Living Situation: Alone Current Living Situation Comment: Family in duplex Other Information That Helps Us Care for You: No Feels Safe at Home: Yes Safety Concerns: Feels Safe At This Time Assistive Devices: CPAP and Glasses Review of Systems A total of 10 systems reviewed and were otherwise negative Physical Exam Vital Signs Vital Signs - 24 hr 10/07/20 08:19 10/07/20 08:26 10/07/20 08:28 Temperature 36.2 C L Temperature Source Oral Pulse Rate 75 76 73 Pulse Rate [Apical] 76 Pulse Rate from SpO2 Sensor 73 Pulse Rhythm Regular Pulse Rhythm [Apical] Regular Pulse Strength [Apical] Normal Respiratory Rate 20 20 14 Respiratory Effort / Characteristics Non-Labored Spontaneous Respiratory Depth Normal Respiratory Pattern Regular Blood Pressure 158/78 H 139/82 Blood Pressure [Left Arm] 123/82 Blood Pressure Mean 104 101 Blood Pressure Mean [Left Arm] 95 Blood Pressure Position [Left Arm] Lying Pulse Oximetry 94 92 91 Oxygen Delivery Method Room Air Room Air Sepsis Recent Fever Within 48 Hours No Sepsis New/Unexplained Change in Mental Status N/A Sepsis Action Taken by Nursing No Action Required 10/07/20 08:30 10/07/20 08:48 10/07/20 09:00 Temperature Temperature Source Pulse Rate 71 67 Pulse Rate [Apical] Pulse Rate from SpO2 Sensor 71 67 Pulse Rhythm Pulse Rhythm [Apical] Pulse Strength [Apical] Respiratory Rate 14 20 Respiratory Effort / Characteristics Respiratory Depth Respiratory Pattern Blood Pressure 123/82 120/68 Blood Pressure [Left Arm] Blood Pressure Mean 103 79 Blood Pressure Mean [Left Arm] Blood Pressure Position [Left Arm] Pulse Oximetry 90 93 90 Oxygen Delivery Method Room Air Sepsis Recent Fever Within 48 Hours Sepsis New/Unexplained Change in Mental Status Sepsis Action Taken by Nursing 10/07/20 09:30 10/07/20 10:01 10/07/20 10:31 Temperature Temperature Source Pulse Rate 64 67 64 Pulse Rate [Apical] Pulse Rate from SpO2 Sensor 64 66 64 Pulse Rhythm Pulse Rhythm [Apical] Pulse Strength [Apical] Respiratory Rate 15 15 14 Respiratory Effort / Characteristics Respiratory Depth Respiratory Pattern Blood Pressure 136/63 126/79 102/56 L Blood Pressure [Left Arm] Blood Pressure Mean 93 89 74 Blood Pressure Mean [Left Arm] Blood Pressure Position [Left Arm] Pulse Oximetry 92 94 96 Oxygen Delivery Method Sepsis Recent Fever Within 48 Hours Sepsis New/Unexplained Change in Mental Status Sepsis Action Taken by Nursing 10/07/20 11:00 10/07/20 11:30 Temperature Temperature Source Pulse Rate 62 66 Pulse Rate [Apical] Pulse Rate from SpO2 Sensor 61 67 Pulse Rhythm Pulse Rhythm [Apical] Pulse Strength [Apical] Respiratory Rate 13 15 Respiratory Effort / Characteristics Respiratory Depth Respiratory Pattern Blood Pressure 132/86 122/70 Blood Pressure [Left Arm] Blood Pressure Mean 112 99 Blood Pressure Mean [Left Arm] Blood Pressure Position [Left Arm] Pulse Oximetry 95 94 Oxygen Delivery Method Sepsis Recent Fever Within 48 Hours Sepsis New/Unexplained Change in Mental Status Sepsis Action Taken by Nursing VITAL SIGNS - Vital signs and nursing notes were reviewed. GENERAL - 60-year-old male appearing stated age who is in no acute distress. Communicates well with provider and answers questions appropriately. SKIN - Without rashes. HEAD - NC/AT. EYES - PERRL with EOMI bilaterally. Sclera anicteric. Palpebral conjunctiva pink and moist with no injection noted. EARS - No deformities of external structures noted on gross examination bilaterally. No pain elicited with palpation of the tragus bilaterally. External auditory canals without discharge or otorrhea. Tympanic membranes pearly ray without retraction or bulging. No fluid or purulent material visualized behind the TM. Handle of malleus, umbo, cone of light, pars tensa/flaccid all easily visualized. NOSE - Midline and without cyanosis. No epistaxis or purulent drainage noted. Septum midline without deviation or septal hematoma noted. MOUTH/OROPHARYNX - Without perioral cyanosis. Buccal mucosa pink and moist and without leukoplakia. Tongue midline with equal elevation of palate bilaterally. No tonsillar hypertrophy, erythema, or exudates noted. dentition noted. NECK - Neck with FROM. Supple to palpation. lymphadenopathy noted. No nuchal rigidity. LUNGS - Chest wall symmetric without accessory muscle use, intercostals retractions, or central cyanosis. Normal vesicular breath sounds CTA B/L. No wheezes, rales, or rhonchi appreciated. CARDIAC - RRR with S1/S2. No murmur, rubs, or gallops appreciated. ABDOMEN - Abdominal contour without pulsations or visible masses. BS normoactive all four quadrants. No tenderness, palpable masses, hepatosplenomegaly, or ascites noted. EXTREMITIES - No clubbing or peripheral cyanosis. No pretibial edema present. +3/5 radial, posterior tibial, and dorsalis pedis pulses palpated throughout. +5/5 strength noted in UE/LE bilaterally. NEUROLOGIC - Cranial nerves II through XII grossly intact. Sensory intact to light touch throughout. Patellar reflexes +2/4. PSYCH - A&Ox3 and cooperates fully with examiner. Pt is very pleasant and interacts well with examiner. Course Administered Medications Discontinued Medications Sodium Chloride (Nss) 500 mls @ 999 mls/hr IV .Q31M ONE Stop: 10/07/20 10:32 Last Infusion: 10/07/20 11:10 Dose: 0 mls/hr Documented by: [id number] Admin: 10/07/20 10:39 Dose: 999 mls/hr Documented by: [id number] Medical Decision Making Differential Diagnosis Reactive airway disease, pneumonia, pneumothorax, COPD, CHF, infections, cardiac ischemia, pulmonary embolism, musculoskeletal, gastrointestinal, as well as other pathologies. Medical Records Attestation: I reviewed the patient's medical records. Home Medications Current Medication List: was personally reviewed by me Laboratory Data Attestation: I reviewed the patient's lab results. Result diagrams: 10/07/20 08:26 10/07/20 08:26 Lab Results 10/07/20 10/07/20 10/07/20 Range/Units 08:26 08:26 08:26 WBC 7.00 (4.8-10.8) K/uL RBC 4.70 (4.7-6.1) M/uL Hgb 12.8 L (14.0-18.0) g/dL Hct 39.5 L (42-52) % MCV 84.0 (80-100) fL MCH 27.2 (25-34) pg MCHC 32.4 (32-36) g/dL RDW Std Deviation 52.9 H (36.4-46.3) fL RDW Coeff of Chris 17.2 H (11.5-14.5) % Plt Count 286 (130-400) K/uL MPV 10.3 (7.4-10.4) fL Immature Gran % (Auto) 0.4 % Neut % (Auto) 64.6 % Lymph % (Auto) 20.4 % [place] % (Auto) 8.3 % Eos % (Auto) 5.7 % Baso % (Auto) 0.6 % Neut # (Auto) 4.52 (1.4-6.5) K/uL Lymph # (Auto) 1.43 (1.2-3.4) K/uL [place] # (Auto) 0.58 (0.11-0.59) K/uL Eos # (Auto) 0.40 (0-0.5) K/uL Baso # (Auto) 0.04 (0-0.2) K/uL Immature Gran # (Auto) 0.03 H (0.00-0.02) K/uL PT 17.5 H (9.0-12.0) Seconds INR 1.7 H (0.9-1.1) APTT 36.0 H (21.0-31.0) Seconds PTT Ratio 1.3 Sodium 137 (136-145) mmol/L Potassium 3.7 (3.5-5.1) mmol/L Chloride 102 (98-107) mmol/L Carbon Dioxide 26 (21-32) mmol/L Anion Gap 9.0 (3-11) BUN 39 H (7-18) mg/dl Creatinine 2.29 H (0.6-1.4) mg/dl Est Cr Clr Drug Dosing 46.0 ml/min Est GFR ( Amer) 34.4 Est GFR (Non-Af Amer) 29.7 BUN/Creatinine Ratio 16.9 (10-20) Glucose 123 H (70-99) mg/dl Calcium 8.9 (8.5-10.1) mg/dl Total Bilirubin 0.4 (0.2-1) mg/dl AST 28 (15-37) U/L ALT 29 (12-78) U/L Alkaline Phosphatase 110 (45-117) U/L Total Creatine Kinase 122 (39-308) U/L CK-MB (CK-2) 1.6 (0.5-3.6) ng/ml CK/CKMB % Calc 1.3 (0-3.0) Troponin I 0.126 H* (0-0.045) ng/ml Total Protein 8.3 H (6.4-8.2) gm/dl Albumin 3.4 (3.4-5.0) gm/dl Globulin 4.9 H (2.5-4.0) gm/dl Albumin/Globulin Ratio 0.7 L (0.9-2) Lipase 251 (73-393) U/L SARS-CoV-2 Ag (Rapid) (Negative) 10/07/20 Range/Units 09:08 WBC (4.8-10.8) K/uL RBC (4.7-6.1) M/uL Hgb (14.0-18.0) g/dL Hct (42-52) % MCV (80-100) fL MCH (25-34) pg MCHC (32-36) g/dL RDW Std Deviation (36.4-46.3) fL RDW Coeff of Chris (11.5-14.5) % Plt Count (130-400) K/uL MPV (7.4-10.4) fL Immature Gran % (Auto) % Neut % (Auto) % Lymph % (Auto) % [place] % (Auto) % Eos % (Auto) % Baso % (Auto) % Neut # (Auto) (1.4-6.5) K/uL Lymph # (Auto) (1.2-3.4) K/uL [place] # (Auto) (0.11-0.59) K/uL Eos # (Auto) (0-0.5) K/uL Baso # (Auto) (0-0.2) K/uL Immature Gran # (Auto) (0.00-0.02) K/uL PT (9.0-12.0) Seconds INR (0.9-1.1) APTT (21.0-31.0) Seconds PTT Ratio Sodium (136-145) mmol/L Potassium (3.5-5.1) mmol/L Chloride (98-107) mmol/L Carbon Dioxide (21-32) mmol/L Anion Gap (3-11) BUN (7-18) mg/dl Creatinine (0.6-1.4) mg/dl Est Cr Clr Drug Dosing ml/min Est GFR ( Amer) Est GFR (Non-Af Amer) BUN/Creatinine Ratio (10-20) Glucose (70-99) mg/dl Calcium (8.5-10.1) mg/dl Total Bilirubin (0.2-1) mg/dl AST (15-37) U/L ALT (12-78) U/L Alkaline Phosphatase (45-117) U/L Total Creatine Kinase (39-308) U/L CK-MB (CK-2) (0.5-3.6) ng/ml CK/CKMB % Calc (0-3.0) Troponin I (0-0.045) ng/ml Total Protein (6.4-8.2) gm/dl Albumin (3.4-5.0) gm/dl Globulin (2.5-4.0) gm/dl Albumin/Globulin Ratio (0.9-2) Lipase (73-393) U/L SARS-CoV-2 Ag (Rapid) Negative (Negative) Imaging Data Radiologist's Impression: [facility], [phone] XRay Report Patient: SEJAL FENTON Date: 10/07/20MR#: [id number]: [address]Acct ID:[id number]: Date: [address] Zip: [id number]: [id number]: EDSex: MRoom/Bed:Att Phy:Diagnosis: HEART/SHOCKPri Phy: Titi RodriguezChelita, MDService Date: 10/07/20Fa Phy:Interpreting Phy: Sixto Fortune MDAdmit Phy: Ordering Phy: Sony Tejada MD cc: ~ XR chest 1V portable CLINICAL HISTORY: Atypical chest pain COMPARISON STUDY: 08/13/2020 FINDINGS: The heart is the upper limits of normal in size. There is a left subclavian pacer/defibrillator present. There is no failure. There is no focal pulmonary consolidation. There are no pleural effusions.[ IMPRESSION: No active disease in the chest. ACT 112: Negative or not required by law. Electronically signed by: Sixto Fortune M.D. 10/07/2020 9:04 AM Dictated: 10/07/20903Transcribed: 10/07/20903 ECG Data Attestation: I personally reviewed and interpreted this ECG as follows: Indication: + other Rate (beats per minute): 74 Rhythm: + sinus rhythm ECG Intervals/blocks: + First degree AV block and + Normal QT-c (472) ECG Cassel: + Normal ECG ST segments: no ST depression and no ST elevation ECG Findings: + Q waves (Inferior) Comparison ECG Date: from (08/13/2020) Change: the following changes noted (Sinus has replaced atrial pacemaker) MDM Narrative Patient was seen and evaluated as above in room C1. Review was performed of gary sing notes and vital signs. I did review pertinent previous visits and patient history. After obtaining a thorough history and physical examination the above work up was performed. This is a 60-year-old male who presents emergency department after his pacemaker has fired. I did discuss his case with the internet and e business project manager who was kind enough to see the patient at the bedside. He does have an elevation in his troponin. Did discuss the case with the hospitalist service who did agree to meet the pat ient. The patient was evaluated during a period of high volume and high acuity while the hospital was at overcapacity during the global COVID-19 pandemic, and that diagnosis was suspected/considered upon their initial presentation. Their evaluation, treatment and testing was consistent with current guidelines for patients who present with complaints or symptoms that may be related to COVID- 19. Impression & Plan Recurrent ventricular tachycardia, Implantable cardioverter-defibrillator discharge, Acute kidney injury superimposed on CKD Discharge Plan Visit Data Chief Complaint: Arrhythmia/Palpitations Stated Complaint: HEART/SHOCK ED Provider: Sony Tejada Discharge Problem: Recurrent ventricular tachycardia, Implantable cardioverter-defibrillator discharge, Acute kidney injury superimposed on CKD Patient Disposition: Admitted As Inpatient Discharge Instructions Interventions: ED Discharge Assessment Last Done: 10/07/20 14:12
[2020-10-07 08:46] LABS: Basophils # (auto) 0.04 K/uL (0-0.2); Basophils % (auto) 0.6 %; Eosinophils % (auto) 5.7 %; Hematocrit (blood only) 39.5 % (42-52); Hemoglobin 12.8 g/dL (14.0-18.0); Immature Granulocytes # (auto) 0.03 K/uL (0.00-0.02); Immature Granulocytes % (auto) 0.4 %; Lymphocytes # (auto) 1.43 K/uL (1.2-3.4); Lymphocytes % (auto) 20.4 %; Mean Corpuscular Hemoglobin 27.2 pg (25-34); Mean Corpuscular Hgb Conc 32.4 g/dL (32-36); Mean Platelet Volume 10.3 fL (7.4-10.4); Monocytes # (auto) 0.58 K/uL (0.11-0.59); Monocytes % (auto) 8.3 %; Neutrophils # (auto) 4.52 K/uL (1.4-6.5); Neutrophils % (auto) 64.6 %; Platelet Count 286 K/uL (130-400); RDW Coefficient of Variation 17.2 % (11.5-14.5); RDW Standard Deviation 52.9 fL (36.4-46.3)
[2020-10-07 08:56] LABS: INR 1.7 (0.9-1.1); Partial Thromboplastin Ratio 1.3; Prothrombin Time 17.5 Seconds (9.0-12.0)
[2020-10-07 09:01] LABS: Albumin Level 3.4 gm/dl (3.4-5.0); BUN Creatinine Ratio 16.9 (10-20); Calcium 8.9 mg/dl (8.5-10.1); Est GFR (African American) 34.4; Est GFR (Non-African American) 29.7; Potassium 3.7 mmol/L (3.5-5.1)
--- NOTE | 2020-10-07 09:06 | XRay Report ---
XR chest 1V portable CLINICAL HISTORY: Atypical chest pain COMPARISON STUDY: 08/13/2020 FINDINGS: The heart is the upper limits of normal in size. There is a left subclavian pacer/defibrill ator present. There is no failure. There is no focal pulmonary consolidation. There are no pleural ef fusions.[ IMPRESSION: No active disease in the chest. ACT 112: Negative or not required by law. Electronically signed by: Sixto Fortune M.D. 10/07/2020 9:04 AM
[2020-10-07 09:14] LABS: Albumin Globulin Ratio 0.7 (0.9-2); Bilirubin,Total 0.4 mg/dl (0.2-1); Creatine Kinase MB 1.6 ng/ml (0.5-3.6); Globulin 4.9 gm/dl (2.5-4.0); Total Protein 8.3 gm/dl (6.4-8.2); Troponin I 0.126 ng/ml (0-0.045)
[2020-10-07] MEDS ORDERED: SODIUM CHLORIDE 0.9% 500 ML IV ONE (10:02)
--- NOTE | 2020-10-07 11:03 | Cardiology Consultation ---
Date of Consultation October 07, 2020 Assessment & Plan (1) Paroxysmal ventricular tachycardia: Patient this morning with episode of sustained ventricular tachycardia and appropriate AICD discharge. Currently asymptomatic notes no overt inciting cause. No associated syncope or near syncope no chest pain. Laboratory studies do reflect a mild decline in renal function, chronically elevated troponins Recommendations increase amiodarone to 300 mg 3 times daily. Agree with holding furosemide repeating renal function in a.m. Maintain telemetry tonight with patient to use CPAP We will supplement potassium to 4 Patient currently scheduled with [facility] for advanced medicine/cardiology [facility] [place] 10/12 (2) Implantable cardioverter-defibrillator discharge: (3) Acute kidney injury superimposed on CKD: (4) Cardiomyopathy: (5) Left ventricular aneurysm: (6) Sleep apnea: History of Present Illness Reason for Consultation: Defibrillator discharge Requesting Physician: Dr. Tejada Attending Physician: Dr. Chaudhary History of Present Illness Patient is a 60-year-old male with complex constellation of issues which include 1. 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 Severe LV dysfunction EF 15 to 20% 2. Status post dual-chamber pacemaker-defibrillator implantation April 2014. [employer] model Evra XT DR GILLIAM BB 1 D4 3. 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 4. Nonobstructive coronary disease cardiac catheterization last in March 2012. Lexiscan stress nuclear imaging June 2020, nonischemic 5. Paroxysmal atrial fibrillation. 6. Symptomatic ventricular tachycardia 7. Chronic obstructive sleep apnea on BiPAP and oxygen supplementation. 8. Hypertension 9. Dyslipidemia 10. Anxiety 11. Hypothyroidism 12. Chronic kidney disease Patient referred once again with sustained ventricular tachycardia and resultant defibrillator discharge. Last hospitalization 08/13/2020. Patient noted no inciting cause. Was sitting at rest on episode occurred. No associated syncope. No chest pains. No fevers chills unexplained infections. No orthopnea worsening peripheral edema. Patient has been compliant with medications and CPAP. No acute weight loss or gain or signs or symptoms of fluid retention. Medications are stable with only new change addition of Entresto beginning 07/20/2020 and amiodarone increase to 300 mg twice daily 08/22/2020 Allergies Allergy/AdvReac Type Severity Reaction Status Date / Time No Known Allergies Allergy Verified 10/07/20 09:46 Home Medications Medication Instructions Recorded Confirmed Type metoprolol tartrate 75 mg PO HS 08/18/19 10/07/20 History allopurinol 300 mg PO HS 09/07/19 10/07/20 History amiodarone 300 mg PO BID 09/07/19 10/07/20 History hydrocodone-acetaminophen 1 tab PO Q4H PRN 09/07/19 10/07/20 History aspirin [Aspirin Low Dose] 81 mg PO HS 09/17/19 10/07/20 History levothyroxine 112 mcg PO HS 01/11/20 10/07/20 History Entresto 1 tab PO BID 08/13/20 10/07/20 History furosemide [Lasix] 40 mg PO PM 08/13/20 10/07/20 History nitroglycerin [Nitrostat] 0.4 mg SUBLINGUAL UD PRN 08/13/20 10/07/20 History allopurinol 100 mg PO HS 10/07/20 10/07/20 History warfarin 5 mg PO PM 10/07/20 10/07/20 History Patient History Medical History Afib CAD (coronary artery disease) non-obstructive Cardiomyopathy CHF (congestive heart failure) hx/no recent issues Chronic back pain Depression Gout History of kidney stones Hypertension Hypothyroidism Left ventricular aneurysm found around time of MS (15+ years ago)- cardio monitoring Myocardial Infarction 15+ years ago- medically managed Presence of combination internal cardiac defibrillator (ICD) and pacemaker Implanted 2013 (follows with cardiology/Dr. Jaffe)- last check 01/2019 Sleep apnea CPAP Surgical History H/O arthroscopic knee surgery multiple on bilateral knees H/O neck surgery History of cardiac cath 2011= NO STENTS History of cystoscopy History of esophagogastroduodenoscopy (EGD) History of implantable cardioverter-defibrillator (ICD) placement History of laminectomy L4-L5 History of lithotripsy History of lumbar surgery 09/17/19 Grade 1 view Mac 3, magnet placed on L chest wall during procedure History of tonsillectomy Status post uvulopalatopharyngoplasty Family History Father FHx: lung cancer Social History Smoking Status: Former smoker Second Hand Exposure: No; Do You Dip or Chew Tobacco: No; Tobacco Cessation Education Requested by Patient: No Hx Alcohol Use: No Hx Substance Use: No Preferred Language: Vietnamese Communication Ability: Effective Testing Manager Required: No Beliefs That Will Affect Care: None Current Living Situation: Alone Current Living Situation Comment: Family in duplex Other Information That Helps Us Care for You: No Feels Safe at Home: Yes Safety Concerns: Feels Safe At This Time Assistive Devices: CPAP and Glasses Review of Systems Review of Systems: All systems reviewed & are unremarkable except as noted in HPI & below Physical Exam Constitutional: WD/WN, vitals as above + obese; no acute distress Eyes: PERRL, conjunctivae normal, anicteric sclerae ENMT: external ear and nose normal, oropharynx normal Neck: trachea midline, no thyromegaly + thick neck Respiratory: normal respiratory effort, lungs clear to auscultation Cardiovascular: Rate/Rhythm: regular rate and regular rhythm Heart Sounds: normal S1 and normal S2; no gallop and no murmur Palpation: normal PMI Vessels: normal carotid upstroke and radial pulses present; no JVD and no carotid bruit Extremities: no edema Chest (Breasts): Chest: + pacemaker (AICD in left upper chest) Gastrointestinal (Abdomen): normal bowel sounds, soft, nontender, no hepatosplenomegaly Musculoskeletal: no cyanosis or clubbing, extremities motor strength 5/5 Skin: no rashes, warm and dry Neurologic: PERRL, EOMI, accommodation nl, no face palsy, no dysarthria Psychiatric: A+Ox3, euthymic affect Results & Data ([facility]) Vital Signs (Past 12 Hours) Vital Signs Temp Pulse Pulse Resp BP BP Pulse Ox 10/07/20 08:48 93 10/07/20 08:26 76 76 20 123/82 92 10/07/20 08:19 36.2 C L 75 20 158/78 H 94 Laboratory Results Laboratory Results - last 24 hr 10/07/20 10/07/20 10/07/20 08:26 08:26 08:26 WBC 7.00 RBC 4.70 Hgb 12.8 L Hct 39.5 L MCV 84.0 MCH 27.2 MCHC 32.4 RDW Std Deviation 52.9 H RDW Coeff of Chris 17.2 H Plt Count 286 MPV 10.3 Immature Gran % (Auto) 0.4 Neut % (Auto) 64.6 Lymph % (Auto) 20.4 [place] % (Auto) 8.3 Eos % (Auto) 5.7 Baso % (Auto) 0.6 Neut # (Auto) 4.52 Lymph # (Auto) 1.43 [place] # (Auto) 0.58 Eos # (Auto) 0.40 Baso # (Auto) 0.04 Immature Gran # (Auto) 0.03 H PT 17.5 H INR 1.7 H APTT 36.0 H PTT Ratio 1.3 Sodium 137 Potassium 3.7 Chloride 102 Carbon Dioxide 26 Anion Gap 9.0 BUN 39 H Creatinine 2.29 H Est Cr Clr Drug Dosing 46.0 Est GFR ( Amer) 34.4 Est GFR (Non-Af Amer) 29.7 BUN/Creatinine Ratio 16.9 Glucose 123 H Calcium 8.9 Total Bilirubin 0.4 AST 28 ALT 29 Alkaline Phosphatase 110 Total Creatine Kinase 122 CK-MB (CK-2) 1.6 CK/CKMB % Calc 1.3 Troponin I 0.126 H* Total Protein 8.3 H Albumin 3.4 Globulin 4.9 H Albumin/Globulin Ratio 0.7 L Lipase 251 SARS-CoV-2 Ag (Rapid) 10/07/20 09:08 WBC RBC Hgb Hct MCV MCH MCHC RDW Std Deviation RDW Coeff of Chris Plt Count MPV Immature Gran % (Auto) Neut % (Auto) Lymph % (Auto) [place] % (Auto) Eos % (Auto) Baso % (Auto) Neut # (Auto) Lymph # (Auto) [place] # (Auto) Eos # (Auto) Baso # (Auto) Immature Gran # (Auto) PT INR APTT PTT Ratio Sodium Potassium Chloride Carbon Dioxide Anion Gap BUN Creatinine Est Cr Clr Drug Dosing Est GFR ( Amer) Est GFR (Non-Af Amer) BUN/Creatinine Ratio Glucose Calcium Total Bilirubin AST ALT Alkaline Phosphatase Total Creatine Kinase CK-MB (CK-2) CK/CKMB % Calc Troponin I Total Protein Albumin Globulin Albumin/Globulin Ratio Lipase SARS-CoV-2 Ag (Rapid) Negative Diagnostic Findings Summary of transthoracic echocardiogram performed as an outpatient 06/22/2020: There was normal sinus rhythm during the examination. Diffuse myocardial thinning is present. There is diffuse hypokinesis to dyskinesis. There is a moderate sized apical and inferior aneurysm. The left ventricular systolic function is severely reduced. Calculated LV ejection Fraction = 19% (three dimensional volumes). The presence of a laminar apical mural thrombus at the level of the left ventricular aneurysm cannot be excluded. Moderate mitral regurgitation is present. The mitral regurgitation is due to ischemic cardiomyopathy. Mild tricuspid regurgitation is present. The estimated pulmonary artery systolic pressure is 28 mm Hg (normal). (1) Sleep apnea Sleep apnea type: obstructive Qualified Code(s): G47.33 - Obstructive sleep apnea (adult) (pediatric)
--- NOTE | 2020-10-07 11:53 | History & Physical Report ---
Date of Service October 07, 2020 Assessment & Plan (1) Recurrent ventricular tachycardia: ICD fired x 1 this morning - unclear trigger at present for arrhythmia - Cardiology consult - spoke with Dr. Jaffe. Will increase amiodarone to TID and monitor - Mild troponin elevation, likely secondary to arrhythmia this morning - will follow Q6H x 3 - Continue other cardiac meds as taken outpatient, other than furosemide which is on hold due to SAE (2) History of implantable cardioverter-defibrillator (ICD) placement: ICD interrogated in ED - per cardiology, responded and fired appropriately to the event (3) Atrial fibrillation: on chronic anticoagulation - current INR is subtherapeutic at 1.7 Pt states that it had been running high so warfarin dose decreased to 5 mg daily for this week - Continue warfarin at 5 mg daily for now - follow INR with increased dose of amiodarone - Cardiac meds as discussed in #1 (4) Acute kidney injury superimposed on CKD: - Hold furosemide for now - Follow labs (5) Hypertension: Mildly elevated at present - resume home meds as discussed and continue to monitor (6) Hypothyroidism: - Continue levothyroxine - Check TSH in morning (7) Sleep apnea: - Continue outpatient CPAP (8) CHF (congestive heart failure): History of CHF - currently without clinical evidence of volume overload. - Continue Entresto and monitor labs - Holding furosemide due to SAE - will monitor creatinine and fluid status Pt seen and reviewed with collaborating physician, Dr. Dupont. Plan of care discussed and as outlined above. All questions answered. Pt requests to be a full code. Catherine Mann PA-C History of Present Illness Chief Complaint: "Device fired once this morning" Primary Care Provider: Titi Rodriguez MD This is a 60 y/o male with a PMH of ischemic cardiomyopathy s/p ICD placement, severe MARIANNA, CAD w/ hx GA, HTN, hypothyroid, dyslipidemia, CORA, atrial fibrillation, gout and chronic anticoagulation therapy who presented to the ED today after his ICD fired this morning. He reports waking up in his usual state of health and feeling well. He got a drink from the kitchen and went to lie down on the couch for a few minutes. While lying there, he started to feel like he was going to pass out with associated palpitations. Within a couple of minutes, the ICD fired and he jumped up from the couch. He reports that this is the first time that he has been conscious when the device fired. He denies any known LOC this morning. He noted almost immediate improvement in the dizziness after the ICD fired. He called his cardiology provider's office this morning and was referred to the ED for additional evaluation. In the ED, his creatinine was also noted to be elevated but he reports that this has been fluctuating for the past couple of months. He denies N/V/D, decreased urine output, loss of a ppetite. No change in oral intake. Urine output has been increased recently which he relates to the diuretic. Current water intake is around 2 liters per day. He has noted "diarrhea" for the past few months that he describes as 1-2 stools per day that start out watery and then become formed. He had one episode of a small amount of bright red blood in the toilet water with a BM a week ago but none since then. Denies abdominal pain, heartburn/indigestion. Allergies Allergy/AdvReac Type Severity Reaction Status Date / Time No Known Allergies Allergy Verified 10/07/20 09:46 Home Medications Medication Instructions Recorded Confirmed Type metoprolol tartrate 75 mg PO HS 08/18/19 10/07/20 History allopurinol 300 mg PO HS 09/07/19 10/07/20 History amiodarone 300 mg PO BID 09/07/19 10/07/20 History hydrocodone-acetaminophen 1 tab PO Q4H PRN 09/07/19 10/07/20 History aspirin [Aspirin Low Dose] 81 mg PO HS 09/17/19 10/07/20 History levothyroxine 112 mcg PO HS 01/11/20 10/07/20 History Entresto 1 tab PO BID 08/13/20 10/07/20 History furosemide [Lasix] 40 mg PO PM 08/13/20 10/07/20 History nitroglycerin [Nitrostat] 0.4 mg SUBLINGUAL UD PRN 08/13/20 10/07/20 History allopurinol 100 mg PO HS 10/07/20 10/07/20 History warfarin 5 mg PO PM 10/07/20 10/07/20 History Past Med/Surg History Medical History Afib CAD (coronary artery disease) non-obstructive Cardiomyopathy CHF (congestive heart failure) hx/no recent issues Chronic back pain Depression Gout History of kidney stones Hypertension Hypothyroidism Left ventricular aneurysm found around time of [place] (15+ years ago)- cardio monitoring Myocardial Infarction 15+ years ago- medically managed Presence of combination internal cardiac defibrillator (ICD) and pacemaker Implanted 2013 (follows with cardiology/Dr. Jaffe)- last check 01/2019 Sleep apnea CPAP Surgical History H/O arthroscopic knee surgery multiple on bilateral knees H/O neck surgery History of cardiac cath 2011= NO STENTS History of cystoscopy History of esophagogastroduodenoscopy (EGD) History of implantable cardioverter-defibrillator (ICD) placement History of laminectomy L4-L5 History of lithotripsy History of lumbar surgery 09/17/19 Grade 1 view Mac 3, magnet placed on L chest wall during procedure History of tonsillectomy Status post uvulopalatopharyngoplasty Family History Father FHx: lung cancer Social History Smoking Status: Former smoker Second Hand Exposure: No; Do You Dip or Chew Tobacco: No; Tobacco Cessation Education Requested by Patient: No Hx Alcohol Use: No Hx Substance Use: No Preferred Language: Jordanian Communication Ability: Effective Home Theatre Technician Required: No Beliefs That Will Affect Care: None Current Living Situation: Alone Current Living Situation Comment: Family in duplex Other Information That Helps Us Care for You: No Feels Safe at Home: Yes Safety Concerns: Feels Safe At This Time Assistive Devices: None Review of Systems Review of Systems: All systems reviewed & are unremarkable except as noted in HPI & below Constitutional: no fever, no chills, no sweats, no fatigue and no anorexia Eyes: no diplopia Ear, Nose, Mouth, Throat: no nasal congestion, no nasal discharge and no sore throat Respiratory: no cough, no chest congestion, no dyspnea and no wheezing Cardiovascular: as per Subjective / HPI, + palpitations and + lightheadedness; no chest pain and no edema Gastrointestinal: + diarrhea/loose stools (see HPI); no abdominal pain, no nausea and no vomiting Genitourinary: no dysuria, no urinary frequency and no hematuria Musculoskeletal: no back pain, no neck pain and no myalgia Integumentary: no rash Neurologic: + dizziness; no localized weakness, no syncope and no headache(s) Psychiatric: no depression and no anxiety Physical Exam Constitutional: + obese; no acute distress Eyes: + anicteric sclerae Neck: trachea midline Respiratory: no respiratory distress Auscultation: lungs clear to auscultation bilaterally; no rales, no rhonchi and no wheezes Cardiovascular: Rate/Rhythm: regular rate and regular rhythm Heart Sounds: + murmur Vessels: dorsalis pedis pulses present Extremities: no pedal edema Gastrointestinal (Abdomen): Inspection/Auscultation: normal bowel sounds Percussion/Palpation: abdomen soft; abdomen nontender Musculoskeletal: Head/Neck/Chest: normocephalic and head atraumatic Skin: no rashes, warm and dry Neurologic: no focal motor deficits Motor/Sensory: normal movement Psychiatric: A+Ox3, euthymic affect Results & Data Results & Data ([facility]) Vital Signs (Past 12 Hours) Vital Signs Temp Pulse Pulse Resp BP BP Pulse Ox 10/07/20 08:48 93 10/07/20 08:26 76 76 20 123/82 92 10/07/20 08:19 36.2 C L 75 20 158/78 H 94 Laboratory Results Laboratory Results - last 24 hr 10/07/20 10/07/20 10/07/20 08:26 08:26 08:26 WBC 7.00 RBC 4.70 Hgb 12.8 L Hct 39.5 L MCV 84.0 MCH 27.2 MCHC 32.4 RDW Std Deviation 52.9 H RDW Coeff of Chris 17.2 H Plt Count 286 MPV 10.3 Immature Gran % (Auto) 0.4 Neut % (Auto) 64.6 Lymph % (Auto) 20.4 [place] % (Auto) 8.3 Eos % (Auto) 5.7 Baso % (Auto) 0.6 Neut # (Auto) 4.52 Lymph # (Auto) 1.43 [place] # (Auto) 0.58 Eos # (Auto) 0.40 Baso # (Auto) 0.04 Immature Gran # (Auto) 0.03 H PT 17.5 H INR 1.7 H APTT 36.0 H PTT Ratio 1.3 Sodium 137 Potassium 3.7 Chloride 102 Carbon Dioxide 26 Anion Gap 9.0 BUN 39 H Creatinine 2.29 H Est Cr Clr Drug Dosing 46.0 Est GFR ( Amer) 34.4 Est GFR (Non-Af Amer) 29.7 BUN/Creatinine Ratio 16.9 Glucose 123 H Calcium 8.9 Total Bilirubin 0.4 AST 28 ALT 29 Alkaline Phosphatase 110 Total Creatine Kinase 122 CK-MB (CK-2) 1.6 CK/CKMB % Calc 1.3 Troponin I 0.126 H* Total Protein 8.3 H Albumin 3.4 Globulin 4.9 H Albumin/Globulin Ratio 0.7 L Lipase 251 SARS-CoV-2 Ag (Rapid) 10/07/20 09:08 WBC RBC Hgb Hct MCV MCH MCHC RDW Std Deviation RDW Coeff of Chris Plt Count MPV Immature Gran % (Auto) Neut % (Auto) Lymph % (Auto) [place] % (Auto) Eos % (Auto) Baso % (Auto) Neut # (Auto) Lymph # (Auto) [place] # (Auto) Eos # (Auto) Baso # (Auto) Immature Gran # (Auto) PT INR APTT PTT Ratio Sodium Potassium Chloride Carbon Dioxide Anion Gap BUN Creatinine Est Cr Clr Drug Dosing Est GFR ( Amer) Est GFR (Non-Af Amer) BUN/Creatinine Ratio Glucose Calcium Total Bilirubin AST ALT Alkaline Phosphatase Total Creatine Kinase CK-MB (CK-2) CK/CKMB % Calc Troponin I Total Protein Albumin Globulin Albumin/Globulin Ratio Lipase SARS-CoV-2 Ag (Rapid) Negative Diagnostic Findings CXR 10/07/20 - IMPRESSION: No active disease in the chest. Medications Administered Discontinued Medications Sodium Chloride (Nss) 500 mls @ 999 mls/hr IV .Q31M ONE Stop: 10/07/20 10:32 Last Infusion: 10/07/20 11:10 Dose: 0 mls/hr Documented by: [id number] Admin: 10/07/20 10:39 Dose: 999 mls/hr Documented by: [id number] Supervising Physician Co-Signing Physician Notes Attending Addendum: care coordinated with TUAN Mann please refer to her notes for full details, I agree with her notes patient seen and examined, records reviewed by myself as well on exam, patient seen resting in bed, comfortable chest pain free, denies shortness of breath, palpitations, dizziness no other symptoms VS noted and reviewed oriented x 3 , not in distress, speaks in sentences with no effort nor accessory muscle use normal rate, regular rhythm, no murmurs clear breath sounds bilaterally non distended, soft, nontender no bipedal edema, erythema, warmth no neuro deficits WBC 7.0 Hg 12.8 Crea 2.2 INR 1.7 ASSESSMENT AND PLAN Recurrent V. tach Amiodarone increased to 3 times daily AICD functioning appropriately Monitor closely Acute kidney injury on CKD stage III Hold Lasix Monitor Subtherapeutic INR History of atrial fibrillation Continue Coumadin other diagnoses and plan of care as per [] Vicente Dupont MD (1) Sleep apnea Sleep apnea type: obstructive Qualified Code(s): G47.33 - Obstructive sleep apnea (adult) (pediatric) (2) Atrial fibrillation Atrial fibrillation type: unspecified Qualified Code(s): I48.91 - Unspecified atrial fibrillation (3) Hypothyroidism Hypothyroidism type: unspecified Qualified Code(s): E03.9 - Hypothyroidism, unspecified (4) Hypertension Hypertension type: essential hypertension Qualified Code(s): I10 - Essential (primary) hypertension
--- NOTE | 2020-10-07 12:54 | Electrocardiogram Report ---
Test Reason : Blood Pressure : / mmHG Vent. Rate : 074 BPM Atrial Rate : 074 BPM P-R Int : 238 ms QRS Dur : 118 ms QT Int : 426 ms P-R-T Axes : 033 018 100 degrees QTc Int : 472 ms Sinus rhythm with 1st degree A-V block Left ventricular hypertrophy with QRS widening and repolarization abnormality possible Inferior infarct , age undetermined Abnormal ECG When compared with ECG of 13-AUG-2020 19:49, Sinus rhythm has replaced Electronic atrial pacemaker Confirmed by Dexter Jama ([id number]) on 10/07/2020 12:54:11 PM Referred By: ER Confirmed By:Maik Jama
[2020-10-07] MEDS ORDERED: NITROGLYCERIN SL 0.4 MG/TAB TAB SL PRN (14:41)
[2020-10-07] MEDS: AMIODARONE 200 MG TAB PO SCH ×2 (16:59→21:16)
[2020-10-07] MEDS ORDERED: allopurinoL 300 MG TAB PO SCH (21:00)
[2020-10-07] MEDS ORDERED: SACUBITRIL-VALSARTAN 49/51 MG TAB PO SCH (21:00)
[2020-10-07] MEDS ORDERED: WARFARIN SOD 5 MG TAB PO SCH (21:00)
[2020-10-07] MEDS ORDERED: ASPIRIN 81 MG ECTAB PO SCH (21:00)
[2020-10-07] MEDS ORDERED: allopurinoL 100 MG TAB PO SCH (21:00)
[2020-10-07] MEDS ORDERED: LEVOTHYROXINE SODIUM 112 MCG TABLET PO SCH (21:00)
[2020-10-07] MEDS ORDERED: METOPROLOL SUCC 25MG EXT REL TAB PO SCH (21:00)
[2020-10-08 04:24] LABS: Hematocrit (blood only) 38.2 % (42-52); Hemoglobin 12.3 g/dL (14.0-18.0); Mean Corpuscular Hemoglobin 27.5 pg (25-34); Mean Corpuscular Hgb Conc 32.2 g/dL (32-36); Mean Corpuscular Volume 85.3 fL (80-100); Mean Platelet Volume 9.9 fL (7.4-10.4); Platelet Count 234 K/uL (130-400); RDW Coefficient of Variation 17.1 % (11.5-14.5); RDW Standard Deviation 53.1 fL (36.4-46.3); Red Blood Count 4.48 M/uL (4.7-6.1); White Blood Count 5.55 K/uL (4.8-10.8)
[2020-10-08 04:31] LABS: Prothrombin Time 20.5 Seconds (9.0-12.0)
[2020-10-08 04:42] LABS: BUN Creatinine Ratio 16.2 (10-20); Calcium 8.4 mg/dl (8.5-10.1); Creatinine Clr Calc Pharmacy 49.6 ml/min; Est GFR (Non-African American) 32.8; Potassium 4.1 mmol/L (3.5-5.1)
[2020-10-08 04:53] LABS: Thyroid Stimulating Hormone 0.951 uIu/ml (0.300-4.500)
--- NOTE | 2020-10-08 19:48 | Hospitalist Progress Note ---
Date of Service October 08, 2020 Assessment & Plan (1) Recurrent ventricular tachycardia: ICD fired prior to admission - Cardiology consult - spoke with Dr. Jaffe increase amiodarone to TID and monitor - Mild troponin elevation, likely secondary to arrhythmia -No issues while admitted Cleared for discharge per cardiology service Amiodarone increased from 300 mg twice daily to 3 times daily Has a follow-up with [facility] cardiology on 10/12/2020 (2) History of implantable cardioverter-defibrillator (ICD) placement: ICD interrogated in ED - per cardiology, responded and fired appropriately to the event (3) Atrial fibrillation: on chronic anticoagulation - current INR is subtherapeutic at 1.7 - Continue warfarin at 5 mg daily for now Coumadin clinic follow-up - Cardiac meds as discussed in #1 (4) Acute kidney injury superimposed on CKD: -Creatinine at baseline 1.6, admitted with 2.2 -Creatinine 2.1 on discharge -Hold Entresto per cardiology service Continue Lasix -Repeat BMP on follow-up with cardiology clinic on 15 Mar 2020 (5) Hypertension: Entresto held per above Follow-up as an outpatient (6) Hypothyroidism: - Continue levothyroxine (7) Sleep apnea: - Continue outpatient CPAP (8) CHF (congestive heart failure): Euvolemic -Entresto per cardiology service in light of elevated creatinine -Continue usual Lasix Follow-up with cardiology clinic Disposition Discharge to home Follow-up with PCP in 1 week Follow-up with [facility] manager real estate 10/12/2020 Follow-up with [facility] results clinic in 2 to 4 weeks Care discussed with patient in detail and at length All questions were answered He is understanding, agreeable, comfortable plan of care Admission and Anticipated Discharge Date Admission Date: October 07, 2020 Subjective Follow-up for recurrent V. tach No acute issues overnight Seen resting in bed, comfortable, watching TV, not in distress, in good spirit States he feels fine overall No chest pain, palpitations, dizziness, weakness, headache, abdominal pain, nausea vomiting Denies any recurrence of AICD firing No urinary complaints No other symptoms Review of Systems Review of Systems: All systems reviewed & are unremarkable except as noted in Subjective Physical Exam Physical Exam: General- oriented x 3, not in distress, speaks in sentences with no effort or accessory muscle use Eyes- anicteric Neck- no JVD Lungs- clear breath sounds bilaterally, no crackles bilaterally Heart- normal rate, regular rhythm; no murmurs Abdomen- normal bowel sounds, nondistended, soft, nontender Extremities- no pretibial edema, no calf tenderness Neuro- alert, oriented x 3; no gross focal neurologic deficits Skin- warm & dry Results & Data Results & Data ([facility]) Laboratory Results Laboratory Results - last 24 hr 10/07/20 10/08/20 10/08/20 20:43 04:13 04:13 WBC 5.55 RBC 4.48 L Hgb 12.3 L Hct 38.2 L MCV 85.3 MCH 27.5 MCHC 32.2 RDW Std Deviation 53.1 H RDW Coeff of Chris 17.1 H Plt Count 234 MPV 9.9 PT 20.5 H INR 2.0 H Sodium Potassium Chloride Carbon Dioxide Anion Gap BUN Creatinine Est Cr Clr Drug Dosing Est GFR ( Amer) Est GFR (Non-Af Amer) BUN/Creatinine Ratio Glucose Calcium Troponin I 0.125 H* TSH 10/08/20 04:13 WBC RBC Hgb Hct MCV MCH MCHC RDW Std Deviation RDW Coeff of Chris Plt Count MPV PT INR Sodium 139 Potassium 4.1 Chloride 105 Carbon Dioxide 32 Anion Gap 2.0 L BUN 34 H Creatinine 2.11 H Est Cr Clr Drug Dosing 49.6 Est GFR ( Amer) 38.0 Est GFR (Non-Af Amer) 32.8 BUN/Creatinine Ratio 16.2 Glucose 92 Calcium 8.4 L Troponin I TSH 0.951 (1) Atrial fibrillation Atrial fibrillation type: unspecified Qualified Code(s): I48.91 - Unspecified atrial fibrillation (2) Hypertension Hypertension type: essential hypertension Qualified Code(s): I10 - Essential (primary) hypertension (3) Hypothyroidism Hypothyroidism type: unspecified Qualified Code(s): E03.9 - Hypothyroidism, unspecified (4) Sleep apnea Sleep apnea type: obstructive Qualified Code(s): G47.33 - Obstructive sleep apnea (adult) (pediatric)
--- NOTE | 2020-10-08 19:49 | Discharge Summary ---
Date of Service October 08, 2020 Admission HPI Per Admitting Provider This is a 60 y/o male with a PMH of ischemic cardiomyopathy s/p ICD placement, severe MARIANNA, CAD w/ hx [place], HTN, hypothyroid, dyslipidemia, CORA, atrial fibrillation, gout and chronic anticoagulation therapy who presented to the ED today after his ICD fired this morning. He reports waking up in his usual state of health and feeling well. He got a drink from the kitchen and went to lie down on the couch for a few minutes. While lying there, he started to feel like he was going to pass out with associated palpitations. Within a couple of minutes, the ICD fired and he jumped up from the couch. He reports that this is the first time that he has been conscious when the device fired. He denies any known LOC this morning. He noted almost immediate improvement in the dizziness after the ICD fired. He called his cardiology provider's office this morning and was referred to the ED for additional evaluation. In the ED, his creatinine was also noted to be elevated but he reports that this has been fluctuating for the past couple of months. He denies N/V/D, decreased urine output, loss of appetite. No change in oral intake. Urine output has been increased recently which he relates to the diuretic. Current water intake is around 2 liters per day. He has noted "diarrhea" for the past few months that he describes as 1-2 stools per day that start out watery and then become formed. He had one episode of a small amount of bright red blood in the toilet water with a BM a week ago but none since then. Denies abdominal pain, heartburn/indigestion. Admission Exam Per Admitting Provider Constitutional: + obese; no acute distress Eyes: + anicteric sclerae Neck: trachea midline Respiratory: no respiratory distress Auscultation: lungs clear to auscultation bilaterally; no rales, no rhonchi and no wheezes Cardiovascular: Rate/Rhythm: regular rate and regular rhythm Heart Sounds: + murmur Vessels: dorsalis pedis pulses present Extremities: no pedal edema Gastrointestinal (Abdomen): Inspection/Auscultation: normal bowel sounds Percussion/Palpation: abdomen soft; abdomen nontender Musculoskeletal: Head/Neck/Chest: normocephalic and head atraumatic Skin: no rashes, warm and dry Neurologic: no focal motor deficits Motor/Sensory: normal movement Psychiatric: A+Ox3, euthymic affect Principal Diagnosis Recurrent V tach, AICD Firing Discharge Exam General- oriented x 3, not in distress, speaks in sentences with no effort or accessory muscle use Eyes- anicteric Neck- no JVD Lungs- clear breath sounds bilaterally, no crackles bilaterally Heart- normal rate, regular rhythm; no murmurs Abdomen- normal bowel sounds, nondistended, soft, nontender Extremities- no pretibial edema, no calf tenderness Neuro- alert, oriented x 3; no gross focal neurologic deficits Skin- warm & dry Discharge Data Allergies Allergy/AdvReac Type Severity Reaction Status Date / Time No Known Allergies Allergy Verified 10/07/20 09:46 Consultations 10/07/20 09:31 Consult Cardiology Stat 10/07/20 10:04 ED Decision to Admit Stat 10/07/20 10:23 ED Decision to Admit Stat Hospital Course (1) Recurrent ventricular tachycardia: ICD fired prior to admission - Cardiology consult - spoke with Dr. Jaffe increase amiodarone to TID and monitor - Mild troponin elevation, likely secondary to arrhythmia -No issues while admitted Cleared for discharge per cardiology service Amiodarone increased from 300 mg twice daily to 3 times daily Has a follow-up with [facility] cardiology on 10/12/2020 (2) History of implantable cardioverter-defibrillator (ICD) placement: ICD interrogated in ED - per cardiology, responded and fired appropriately to the event (3) Atrial fibrillation: on chronic anticoagulation - current INR is subtherapeutic at 1.7 - Continue warfarin at 5 mg daily for now Coumadin clinic follow-up - Cardiac meds as discussed in #1 (4) Acute kidney injury superimposed on CKD: -Creatinine at baseline 1.6, admitted with 2.2 -Creatinine 2.1 on discharge -Hold Entresto per cardiology service Continue Lasix -Repeat BMP on follow-up with cardiology clinic on 2019 (5) Hypertension: Entresto held per above Follow-up as an outpatient (6) Hypothyroidism: - Continue levothyroxine (7) Sleep apnea: - Continue outpatient CPAP (8) CHF (congestive heart failure): Euvolemic -Entresto per cardiology service in light of elevated creatinine -Continue usual Lasix Follow-up with cardiology clinic Disposition Discharge to home Follow-up with PCP in 1 week Follow-up with [facility] concrete puddler 10/12/2020 Follow-up with [facility] results clinic in 2 to 4 weeks Care discussed with patient in detail and at length All questions were answered He is understanding, agreeable, comfortable plan of care Total Time Total Time Spent Total Time Spent (In Minutes): > 30 minutes Discharge Plan Discharge Items Patient Disposition: Home - Self-Care Reason For Visit: RECURRENT VTACH WITH ICD IN PLACE Discharge Diagnosis: Recurrent V tach, AICD Firing Activity: Resume your previous activity Non-emergency contact: Primary Care Provider and Eyelet Machine Operator Call non-emergency contact if: you have any medication questions and your symptoms worsen Diet: Heart Healthy Addtl Attending Provider Instructions: Instructions hand written on Paper Form due to [facility] downtime on discharge day. Pending Studies at Discharge: Yes Studies:: Repeat BMP on ff up with [employer] Operator 1 week post discharge Medications and DC Order Prescriptions: New amiodarone 100 mg tablet 300 mg PO TID Qty: 90 RF: 0 Continued metoprolol tartrate 50 mg Tablet 75 mg PO HS RF: 0 hydrocodone-acetaminophen 5-325 mg Tablet 1 tab PO Q4H PRN (Reason: Pain) RF: 0 allopurinol 300 mg Tablet 300 mg PO HS RF: 0 aspirin [Aspirin Low Dose] 81 mg Tablet,Delayed Release (Dr/Ec) 81 mg PO HS RF: 0 allopurinol 100 mg tablet 100 mg PO HS RF: 0 warfarin 5 mg tablet 5 mg PO PM RF: 0 levothyroxine 112 mcg tablet 112 mcg PO HS RF: 0 furosemide [Lasix] 40 mg tablet 40 mg PO PM RF: 0 nitroglycerin [Nitrostat] 0.4 mg Tablet, Sublingual 0.4 mg sublingual UD PRN (Reason: Chest Pain) RF: 0 Discontinued amiodarone 200 mg Tablet 300 mg PO BID RF: 0 Entresto 49-51 mg tablet 1 tab PO BID RF: 0 Discharge Orders: Discharge Order (Routine); Ordered 10/12/20 Ordered By: Vicente Dupont Admission Data Admit Date/Time: 10/07/20 12:06 Attending Provider: Vicente Dupont Admit Provider: Vicente Dupont Primary Care Provider: Titi Rodriguez Other Providers: Lucius Jaffe ; Olamide Chaudhary ; Vicente Dupont
== END 2020-10-08 16:55 | disposition home or self-care (01) | DRG 309 ==
LOC: ED 08:08 → 1E 12:06

== ENCOUNTER 2020-12-24 23:54 | Inpatient (IN) ==
[2020-12-25 00:26] LABS: Basophils # (auto) 0.03 K/uL (0-0.2); Basophils % (auto) 0.5 %; Eosinophils # (auto) 0.33 K/uL (0-0.5); Eosinophils % (auto) 5.7 %; Hematocrit (blood only) 37.9 % (42-52); Hemoglobin 12.1 g/dL (14.0-18.0); Lymphocytes # (auto) 1.28 K/uL (1.2-3.4); Lymphocytes % (auto) 22.2 %; Mean Corpuscular Hemoglobin 25.6 pg (25-34); Mean Corpuscular Hgb Conc 31.9 g/dL (32-36); Mean Corpuscular Volume 80.3 fL (80-100); Mean Platelet Volume 10.2 fL (7.4-10.4); Monocytes # (auto) 0.44 K/uL (0.11-0.59); Monocytes % (auto) 7.6 %; Neutrophils # (auto) 3.68 K/uL (1.4-6.5); Platelet Count 260 K/uL (130-400); RDW Coefficient of Variation 15.3 % (11.5-14.5); RDW Standard Deviation 44.9 fL (36.4-46.3); Red Blood Count 4.72 M/uL (4.7-6.1); White Blood Count 5.76 K/uL (4.8-10.8)
--- NOTE | 2020-12-25 00:28 | Emergency Department Note ---
Impression & Plan Acute non-ST elevation myocardial infarction (NSTEMI) ED Provider Note NAME: SEJAL FENTON AGE: 60 SEX: M ARRIVES VIA: Ambulance INFORMANT: Patient ED PROVIDER(S): Dilia Nelson DO CHIEF COMPLAINT: Chest pain PLAN: Disposition: Admitted to the [facility] service Condition: Stable MEDICAL DECISION MAKING: This is a 60-year-old male patient who presents to the emergency department with chest discomfort that was relieved by nitroglycerin. Patient has T wave invers ion in the inferior leads with a positive troponin. His presentation is concerning for NSTEMI. His INR is subtherapeutic on Coumadin. [facility] for [facility] care. Triage Nursing notes reviewed and agree them. Prior medical records reviewed Vital Signs: reviewed and remarkable for hypertension Differential diagnosis: Aortic dissection, STEMI, NSTEMI, GERD, anxiety, costochondritis Diagnostics interpreted by me: ECG: Atrial paced rhythm at a rate of 70 with significant ischemic changes with T wave inversions in the inferior leads-2, 3 and aVF. These are new findings in comparison to an EKG from 10/07/2020. There are no other ectopic beats noted. Cardiac Monitoring: Normal sinus rhythm 70 Laboratory studies: See below Imaging studies: As per my interpretation Chest x-ray: No significant cardiomegaly or pulmonary findings. HPI: 60/M arrives for evaluation of chest pain. The patient was preparing to go to bed when he developed some substernal chest discomfort that radiated to the left side of his neck and his left shoulder. The patient took some nitroglycerin. He describes this discomfort is different than anything he had ever experienced before. He also felt dizzy and near syncopal as he was talking to his daughter on the phone. EMS was called. Upon their arrival, they administered baby aspirin. Prior to transfer, the patient's discomfort had subsided. The patient has extensive cardiac history including previous stress test and cardiac catheterizations but has never had PCI or a myocardial infarction according to the patient. ROS: See above HPI for pertinent positives & negatives. A total of 10 systems reviewed and were otherwise negative. PAST MEDICAL HISTORY:See Below PAST SURGICAL HISTORY:See Below FAMILY HISTORY:See Below SOCIAL HISTORY:See Below HOME MEDICATIONS:See Below ALLERGIES:None VITALS:See Below PHYSICAL EXAMINATION: HEENT: Head - normocephalic and atraumatic Pupils are equal, round, and reactive to light. Extraocular eye muscles are intact, and sclera are anicteric. Nose - moist nasal mucosa without discharge. Mouth - moist buccal mucosa. Oropharynx is nonerythematous and there is no tonsillar exudate or edema noted. Neck: Supple; no JVD, nuchal rigidity, cervical lymphadenopathy. Heart: Regular rate and rhythm. There is a normal S1 and S2 with no murmurs, clicks, or gallops appreciated. Lungs: Clear to auscultation bilaterally with no wheezes, rales, or rhonchi. Abdomen: Soft, completely nontender, nondistended, with good bowel sounds. There are no palpable pulsatile masses or hepatosplenomegaly. There is no guarding, rigidity, or rebound noted. Extremities: No evidence of cyanosis, clubbing, or edema. There are easily palpable peripheral pulses. Skin: Remy in color, warm and dry with good turgor and no rashes. ED COURSE: Times/Reassessments: 0005: The patient was evaluated in room a 11. A complete history and physical was performed. Previous electronic medical records were reviewed. An order was placed for continuous cardiac monitoring. The patient was in an atrial paced rhythm at 70. A twelve-lead EKG was obtained as described above. Nursing was the obtaining a second IV line and laboratory studies. The patient is currently chest pain- free. A portable chest x-ray was performed. 0110: Patient was reevaluated at this time and remains chest pain-free. I reviewed the results of the laboratory findings and x-rays with the patient. [facility] and [facility] will evaluate for further management. Dilia Nelson DO Past Med/Surg History Medical History Afib CAD (coronary artery disease) non-obstructive Cardiomyopathy CHF (congestive heart failure) hx/no recent issues Chronic back pain Depression Gout History of kidney stones Hypertension Hypothyroidism Left ventricular aneurysm found around time of MA (15+ years ago)- cardio monitoring Myocardial Infarction 15+ years ago- medically managed Presence of combination internal cardiac defibrillator (ICD) and pacemaker Implanted 2013 (follows with cardiology/Dr. Jaffe)- last check 01/2019 Sleep apnea CPAP Surgical History H/O arthroscopic knee surgery multiple on bilateral knees H/O neck surgery History of cardiac cath 2012= NO STENTS History of cystoscopy History of esophagogastroduodenoscopy (EGD) History of implantable cardioverter-defibrillator (ICD) placement History of laminectomy L4-L5 History of lithotripsy History of lumbar surgery 09/17/19 Grade 1 view Mac 3, magnet placed on L chest wall during procedure History of tonsillectomy Status post uvulopalatopharyngoplasty Family History Father FHx: lung cancer Social History Smoking Status: Never smoker Second Hand Exposure: No; Hx Alcohol Use: No Hx Substance Use: No Preferred Language: Maltese Communication Ability: Effective Accreditation Manager Required: No Beliefs That Will Affect Care: None Current Living Situation: Alone Current Living Situation Comment: Family in duplex Other Information That Helps Us Care for You: No Feels Safe at Home: Yes Safety Concerns: Feels Safe At This Time Assistive Devices: CPAP and Glasses Allergies Allergies Allergy/AdvReac Type Severity Reaction Status Date / Time No Known Allergies Allergy Verified 12/25/20 00:43 Home Meds Home Medications Medication Instructions Recorded Confirmed allopurinol 300 mg PO HS 09/07/19 12/25/20 amiodarone 200 mg PO BID 09/07/19 12/25/20 hydrocodone-acetaminophen 1 tab PO Q4H PRN 09/07/19 12/25/20 aspirin [Aspirin Low Dose] 81 mg PO HS 09/17/19 12/25/20 levothyroxine 112 mcg PO HS 01/11/20 12/25/20 furosemide [Lasix] 40 mg PO PM 08/13/20 12/25/20 nitroglycerin [Nitrostat] 0.4 mg SUBLINGUAL UD PRN 08/13/20 12/25/20 allopurinol 100 mg PO HS 10/07/20 12/25/20 warfarin 2.5 - 5 mg PO PM 10/07/20 12/25/20 hydralazine 25 mg PO TID 12/25/20 12/25/20 isosorbide mononitrate [Imdur] 30 mg PO DAILY 12/25/20 12/25/20 metoprolol succinate 50 mg PO BID 12/25/20 12/25/20 Results & Data (ED) Laboratory Data Result diagrams: 12/26/20 06:38 12/25/20 05:22 Lab Results 12/24/20 12/25/20 12/25/20 Range/Units 23:40 00:10 00:10 WBC 5.76 (4.8-10.8) K/uL RBC 4.72 (4.7-6.1) M/uL Hgb 12.1 L (14.0-18.0) g/dL Hct 37.9 L (42-52) % MCV 80.3 (80-100) fL MCH 25.6 (25-34) pg MCHC 31.9 L (32-36) g/dL RDW Std Deviation 44.9 (36.4-46.3) fL RDW Coeff of Chris 15.3 H (11.5-14.5) % Plt Count 260 (130-400) K/uL MPV 10.2 (7.4-10.4) fL Immature Gran % (Auto) 0.0 % Neut % (Auto) 64.0 % Lymph % (Auto) 22.2 % [place] % (Auto) 7.6 % Eos % (Auto) 5.7 % Baso % (Auto) 0.5 % Neut # (Auto) 3.68 (1.4-6.5) K/uL Lymph # (Auto) 1.28 (1.2-3.4) K/uL [place] # (Auto) 0.44 (0.11-0.59) K/uL Eos # (Auto) 0.33 (0-0.5) K/uL Baso # (Auto) 0.03 (0-0.2) K/uL Immature Gran # (Auto) 0.00 (0.00-0.02) K/uL PT 12.5 H (9.0-12.0) Seconds INR 1.3 H (0.9-1.1) Sodium 141 (136-145) mmol/L Potassium 4.0 (3.5-5.1) mmol/L Chloride 109 H (98-107) mmol/L Carbon Dioxide 27 (21-32) mmol/L Anion Gap 5.0 (3-11) BUN 35 H (7-18) mg/dl Creatinine 1.93 H (0.6-1.4) mg/dl Est Cr Clr Drug Dosing 58.1 ml/min Est GFR ( Amer) 42.3 Est GFR (Non-Af Amer) 36.5 BUN/Creatinine Ratio 18.1 (10-20) Glucose 119 H (70-99) mg/dl Calcium 8.3 L (8.5-10.1) mg/dl Total Bilirubin 0.3 (0.2-1) mg/dl AST 44 H (15-37) U/L ALT 52 (12-78) U/L Alkaline Phosphatase 127 H (45-117) U/L Troponin I 0.154 H* (0-0.045) ng/ml Total Protein 8.0 (6.4-8.2) gm/dl Albumin 3.3 L (3.4-5.0) gm/dl Globulin 4.7 H (2.5-4.0) gm/dl Albumin/Globulin Ratio 0.7 L (0.9-2) Lipase 439 H (73-393) U/L COVID-19 Eval Order SARS-CoV-2, RNA, NAAT (NEGATIVE) 12/25/20 12/25/20 Range/Units 01:43 01:43 WBC (4.8-10.8) K/uL RBC (4.7-6.1) M/uL Hgb (14.0-18.0) g/dL Hct (42-52) % MCV (80-100) fL MCH (25-34) pg MCHC (32-36) g/dL RDW Std Deviation (36.4-46.3) fL RDW Coeff of Chris (11.5-14.5) % Plt Count (130-400) K/uL MPV (7.4-10.4) fL Immature Gran % (Auto) % Neut % (Auto) % Lymph % (Auto) % [place] % (Auto) % Eos % (Auto) % Baso % (Auto) % Neut # (Auto) (1.4-6.5) K/uL Lymph # (Auto) (1.2-3.4) K/uL [place] # (Auto) (0.11-0.59) K/uL Eos # (Auto) (0-0.5) K/uL Baso # (Auto) (0-0.2) K/uL Immature Gran # (Auto) (0.00-0.02) K/uL PT (9.0-12.0) Seconds INR (0.9-1.1) Sodium (136-145) mmol/L Potassium (3.5-5.1) mmol/L Chloride (98-107) mmol/L Carbon Dioxide (21-32) mmol/L Anion Gap (3-11) BUN (7-18) mg/dl Creatinine (0.6-1.4) mg/dl Est Cr Clr Drug Dosing ml/min Est GFR ( Amer) Est GFR (Non-Af Amer) BUN/Creatinine Ratio (10-20) Glucose (70-99) mg/dl Calcium (8.5-10.1) mg/dl Total Bilirubin (0.2-1) mg/dl AST (15-37) U/L ALT (12-78) U/L Alkaline Phosphatase (45-117) U/L Troponin I (0-0.045) ng/ml Total Protein (6.4-8.2) gm/dl Albumin (3.4-5.0) gm/dl Globulin (2.5-4.0) gm/dl Albumin/Globulin Ratio (0.9-2) Lipase (73-393) U/L COVID-19 Eval Order Covid19 IDNow atMMAC SARS-CoV-2, RNA, NAAT NEGATIVE (NEGATIVE) Administered Medications Allopurinol (Allopurinol 300 Mg Tab) 300 mg PO HS TASH Stop: 01/24/21 20:59 Last Admin: 12/25/20 20:37 Dose: 300 mg Documented by: [id number] Allopurinol (Allopurinol 100 Mg Tab) 100 mg PO HS TASH Stop: 01/24/21 20:59 Last Admin: 12/25/20 20:37 Dose: 100 mg Documented by: [id number] Amiodarone HCl (Amiodarone 200 Mg Tab) 200 mg PO BID TASH Stop: 01/24/21 08:59 Last Admin: 12/25/20 20:36 Dose: 200 mg Documented by: [id number] Admin: 12/25/20 09:05 Dose: 200 mg Documented by: [id number] Aspirin (Aspirin 81 Mg Ectab) 81 mg PO HS [facility] Stop: 01/24/21 20:59 Last Admin: 12/25/20 20:36 Dose: 81 mg Documented by: [id number] Furosemide (Furosemide 40 Mg Tab) 40 mg PO PM TASH Stop: 01/24/21 20:59 Last Admin: 12/25/20 20:36 Dose: 40 mg Documented by: [id number] Hydralazine HCl (Hydralazine Hcl 25 Mg Tab) 25 mg PO TID TASH Stop: 01/24/21 08:59 Last Admin: 12/25/20 20:36 Dose: 25 mg Documented by: [id number] Admin: 12/25/20 14:05 Dose: 25 mg Documented by: [id number] Admin: 12/25/20 09:05 Dose: 25 mg Documented by: [id number] Heparin Sodium/Dextrose (Heparin Sodium/Dextrose) 25,000 units in 500 mls @ 28 mls/hr IV .[id number] [facility]; Protocol Stop: 01/24/21 04:01 Last Admin: 12/26/20 02:03 Dose: 1,400 units/hr, 28 mls/hr Documented by: [id number] Cosigned by: [id number] Titration: 12/26/20 02:00 Dose: 1,400 units/hr, 28 mls/hr Documented by: [id number] Cosigned by: [id number] Titration: 12/26/20 00:42 Dose: 1,400 units/hr, 28 mls/hr Documented by: [id number] Cosigned by: [id number] Titration: 12/25/20 18:56 Dose: 1,300 units/hr, 26 mls/hr Documented by: [id number] Cosigned by: [id number] Titration: 12/25/20 18:00 Dose: 1,300 units/hr, 26 mls/hr Documented by: [id number] Cosigned by: [id number] Titration: 12/25/20 11:29 Dose: 1,200 units/hr, 24 mls/hr Documented by: [id number] Cosigned by: [id number] Titration: 12/25/20 07:08 Dose: 1,000 units/hr, 20 mls/hr Documented by: [id number] Cosigned by: [id number] Admin: 12/25/20 04:50 Dose: 1,000 units/hr, 20 mls/hr Documented by: [id number] Cosigned by: [id number] Isosorbide Mononitrate (Isosorbide [place] Extended Rel 30 Mg Tabcr) 30 mg PO DAILY [facility] Stop: 01/24/21 08:59 Last Admin: 12/25/20 09:04 Dose: 30 mg Documented by: [id number] Levothyroxine Sodium (Levothyroxine Sodium 112 Mcg Tablet) 112 mcg PO HS [facility] Stop: 01/24/21 20:59 Last Admin: 12/25/20 20:37 Dose: 112 mcg Documented by: [id number] Metoprolol Succinate (Metoprolol Succ 50mg Ext Rel Tab) 50 mg PO BID [facility] Stop: 01/24/21 08:59 Last Admin: 12/25/20 20:38 Dose: 50 mg Documented by: [id number] Admin: 12/25/20 09:04 Dose: 50 mg Documented by: [id number] Warfarin Sodium (Warfarin Sod 5 Mg Tab) 5 mg PO DAILY@1600 [facility] Stop: 01/24/21 15:59 Last Admin: 12/25/20 17:05 Dose: 5 mg Documented by: [id number] Discontinued Medications Amiodarone HCl (Amiodarone 200 Mg Tab) 200 mg PO NOW ONE Stop: 12/25/20 02:33 Last Admin: 12/25/20 03:23 Dose: 200 mg Documented by: [id number] Heparin Sodium (Porcine) 4,000 (units/ Syringe) 4 mls @ 10 mls/min IV NOW ONE Stop: 12/25/20 11:46 Last Admin: 12/25/20 11:39 Dose: 10 mls/min Documented by: [id number] Cosigned by: [id number] Levothyroxine Sodium (Levothyroxine Sodium 112 Mcg Tablet) 112 mcg PO NOW STA Stop: 12/25/20 02:34 Last Admin: 12/25/20 03:04 Dose: 112 mcg Documented by: [id number] Metoprolol Succinate (Metoprolol Succ 50mg Ext Rel Tab) 50 mg PO NOW STA Stop: 12/25/20 02:33 Last Admin: 12/25/20 03:03 Dose: 50 mg Documented by: [id number] Warfarin Sodium (Warfarin Sod 5 Mg Tab) 5 mg PO NOW ONE Stop: 12/25/20 02:33 Last Admin: 12/25/20 03:03 Dose: 5 mg Documented by: [id number] Discharge Plan Visit Data Chief Complaint: Chest Pain Stated Complaint: CHEST PAIN/LIGHTHEADED ED Provider: Dilia Nelson Discharge Problem: Acute non-ST elevation myocardial infarction (NSTEMI) Patient Disposition: Admitted As Inpatient Discharge Instructions Interventions: ED Discharge Assessment Last Done: 12/25/20 04:29
[2020-12-25 00:45] LABS: Albumin Level 3.3 gm/dl (3.4-5.0); BUN Creatinine Ratio 18.1 (10-20); Calcium 8.3 mg/dl (8.5-10.1); Creatinine Clr Calc Pharmacy 58.1 ml/min; Est GFR (African American) 42.3; Est GFR (Non-African American) 36.5
[2020-12-25 01:00] LABS: Albumin Globulin Ratio 0.7 (0.9-2); Bilirubin,Total 0.3 mg/dl (0.2-1); Globulin 4.7 gm/dl (2.5-4.0); Troponin I 0.154 ng/ml (0-0.045)
[2020-12-25 01:28] LABS: INR 1.3 (0.9-1.1); Prothrombin Time 12.5 Seconds (9.0-12.0)
[2020-12-25] MEDS ORDERED: METOPROLOL SUCC 50MG EXT REL TAB PO STA (02:32)
[2020-12-25] MEDS ORDERED: AMIODARONE 200 MG TAB PO ONE (02:32)
[2020-12-25] MEDS ORDERED: WARFARIN SOD 5 MG TAB PO ONE (02:32)
[2020-12-25] MEDS ORDERED: LEVOTHYROXINE SODIUM 112 MCG TABLET PO STA (02:33)
[2020-12-25] MEDS ORDERED: ACETAMINOPHEN 325 MG TAB PO PRN (04:02)
[2020-12-25] MEDS ORDERED: POLYETHYLENE (MIRALAX) 17 GM PACK PO PRN (04:02)
[2020-12-25] MEDS ORDERED: Heparin IV Adult Wt-Based Low-Dose *NO* Bolus Protocol ONE (04:02)
[2020-12-25] MEDS ORDERED: HYDROCODONE/ACETAMOPHEN 5/325MG TAB PO PRN (04:02)
[2020-12-25] MEDS ORDERED: ONDANSETRON INJ 2 MG/ML 2 ML VIAL IV PRN (04:02)
[2020-12-25] MEDS ORDERED: NITROGLYCERIN SL 0.4 MG/TAB TAB SL PRN ×2 (04:02)
[2020-12-25] MEDS: HEPARIN SODIUM/DEXTROSE 25,000 UNITS/500 ML BAG IV SCH (04:50)
[2020-12-25 05:55] LABS: Basophils # (auto) 0.02 K/uL (0-0.2); Basophils % (auto) 0.4 %; Eosinophils % (auto) 5.5 %; Hematocrit (blood only) 37.2 % (42-52); Hemoglobin 11.5 g/dL (14.0-18.0); Immature Granulocytes # (auto) 0.01 K/uL (0.00-0.02); Immature Granulocytes % (auto) 0.2 %; Lymphocytes # (auto) 1.31 K/uL (1.2-3.4); Lymphocytes % (auto) 23.8 %; Mean Corpuscular Hemoglobin 24.9 pg (25-34); Mean Corpuscular Hgb Conc 30.9 g/dL (32-36); Mean Corpuscular Volume 80.5 fL (80-100); Mean Platelet Volume 10.2 fL (7.4-10.4); Monocytes # (auto) 0.61 K/uL (0.11-0.59); Monocytes % (auto) 11.1 %; Neutrophils # (auto) 3.25 K/uL (1.4-6.5); Platelet Count 251 K/uL (130-400); RDW Coefficient of Variation 15.3 % (11.5-14.5); RDW Standard Deviation 44.8 fL (36.4-46.3); Red Blood Count 4.62 M/uL (4.7-6.1)
[2020-12-25 06:07] LABS: INR 1.4 (0.9-1.1); Prothrombin Time 13.5 Seconds (9.0-12.0)
[2020-12-25 06:31] LABS: BUN Creatinine Ratio 19.4 (10-20); Calcium 8.4 mg/dl (8.5-10.1); Creatinine Clr Calc Pharmacy 59.1 ml/min; Est GFR (African American) 45.7; Est GFR (Non-African American) 39.5; Magnesium 2.5 mg/dl (1.8-2.4); Potassium 3.9 mmol/L (3.5-5.1)
[2020-12-25 06:50] LABS: Troponin I 0.149 ng/ml (0-0.045)
--- NOTE | 2020-12-25 07:19 | History and Physical Report ---
DATE OF ADMISSION: 12/25/2020 CHIEF COMPLAINT: Chest pain. HISTORY OF PRESENT ILLNESS: This is a 60-year-old male with past medical history significant for ischemic cardiomyopathy, status post ICD, severe obstructive sleep apnea, CAD, history of VA, hypertension, hypothyroidism, dyslipidemia, generalized anxiety disorder, paroxysmal atrial fibrillation, gout, obesity, cervical spondylosis, sacroiliitis, who presents with chest pain. The patient says around 10:00 p.m., he started having chest pressure about 8/10 in severity in the left side of chest radiating to the left axilla. He tried to talk to his daughter on the phone, but it got worse and he felt lightheaded when he called EMS. He took nitro and brought to the ER. By the time they came to the ER, chest pain got resolved, but EKG shows some T-wave inversions in inferior leads. Currently resting comfortably and hemodynamically stable. Currently asymptomatic. Denies any shortness of breath. No cough, no headache, no blurred vision, no earache, no runny nose, no sore throat, no fever, no chills, no nausea, no abdominal pain, no dizziness. Normal bowel and bladder movements. No swelling in the legs, no rash. ALLERGIES: No known drug allergies. PAST MEDICAL HISTORY: As mentioned above. PAST SURGICAL HISTORY: Tonsillectomy, adenoidectomy, revision of the palate, sacroiliac joint injection, history of cardiac catheterization, status post ICD placement. MEDICATIONS: The patient is on allopurinol 400 mg p.o. at bedtime, amiodarone 200 mg p.o. b.i.d., aspirin 81 mg p.o. at bedtime, Lasix 40 mg p.o. p.m., hydralazine 25 mg p.o. t.i.d., hydrocodone/acetaminophen 1 tablet p.o. q. 4 hours p.r.n., Imdur 30 mg p.o. daily, levothyroxine 112 mcg p.o. at bedtime, Toprol-XL 50 mg p.o. b.i.d., nitroglycerin 0.4 mg sublingual p.r.n., Coumadin 2.5 to 5 mg p.o. at bedtime. FAMILY HISTORY: Significant for father had lung cancer; mother has dementia. SOCIAL HISTORY: . No smoking, no alcohol, no drug use. REVIEW OF SYSTEMS: As per HPI. Rest of the review of systems negative. PHYSICAL EXAMINATION: GENERAL: The patient is morbidly obese, currently not in acute distress. VITAL SIGNS: Temperature 36.6, pulse 60, respiratory rate 16, blood pressure 129/67, oxygen 95% on room air. HEENT: Pupils equal, round, and reactive to light. Oral mucosa moist. NECK: No JVD, no neck masses seen. CARDIOVASCULAR: S1, S2 heard, regular rate and rhythm, no murmur, no gallop. RESPIRATORY SYSTEM: Normal AP diameter. No accessory muscle use. No wheezing, no crackles. ABDOMEN: Soft, bowel sounds present, nontender. No distention. CENTRAL NERVOUS SYSTEM: Cranial nerves II-XII grossly intact. Nonfocal. EXTREMITIES: No edema, no erythema. LABORATORY DATA: WBC 5.7, hemoglobin 12.1, hematocrit 37.9, platelets 260. PT 12.5, INR 1.3. Sodium 141, potassium 4.0, chloride 109, bicarbonate 27, BUN 35, creatinine 1.9, serum glucose 119, calcium 8.3, total bilirubin 0.3, AST 44, ALT 52, alkaline phosphatase 127. Troponin 0.15. Lipase 439. SARS-CoV-2 RNA negative. IMAGING DATA: Chest x-ray, no acute findings seen. EKG: Atrial paced rhythm with prolonged AV conduction at the rate of 70, T-wave inversions in inferior leads. ASSESSMENT AND PLAN: This is a 60-year-old male who presents with chest pain. 1. The patient has a history of myocardial infarction in the past. In 2011, cardiac catheterization showed nonobstructive disease, most likely related to recannulization of the infarct related vessel. The patient's troponin is 0.15, is chronically elevated, but EKG shows T-wave inversions in the inferior leads, possible non-ST elevated myocardial infarction. The patient is on Coumadin for INR subtherapeutic at 1.3. We will place him on IV heparin. Currently asymptomatic. Follow serial enzymes, echocardiogram, and consult cardiology in a.m. Keep n.p.o. until seen by cardiology. 2. History of coronary artery disease: On aspirin, beta quin, and Imdur. Await cardiac input. 3. History of chronic systolic congestive heart failure with EF of around 20%, status post ICD, on Lasix, hydralazine, and Toprol-XL. We will monitor. 4. Obstructive sleep apnea: CPAP at bedtime. 5. History of hypertension: On hydralazine, Imdur, Toprol-XL and Lasix. Will monitor the blood pressure. 6. History of left ventricular apical thrombus. Will follow the echo. 7. History of atrial fibrillation, history of ventricular tachycardia, status post ICD, on amiodarone and Coumadin and Toprol-XL. His INR is 1.3. Started on low-dose IV heparin. Will monitor in tele. 8. Hypothyroidism: On Synthroid. 9. Deep venous thrombosis prophylaxis: On IV heparin. DISPOSITION: Closely monitor in the tele floor. Level 1 full code. Expect to discharge home and follow with family doctor. MARY ANNE
--- NOTE | 2020-12-25 08:31 | XRay Report ---
XR chest 1V portable CLINICAL HISTORY: Chest Pain COMPARISON STUDY: Chest radiograph October 07, 2020. FINDINGS: Dual lead left subclavian pacer/AICD is in place. Moderate cardiomegaly is unchanged. [place] tion of the right hemidiaphragm is unchanged. There is no consolidation or evidence for pulmonary jimena ma. Appearance of the chest is unchanged. IMPRESSION: No acute cardiopulmonary findings. No change in appearance of the chest. ACT 112: Negative or not required by law. Electronically signed by: Venkat Gomez M.D. 12/25/2020 8:30 AM
--- NOTE | 2020-12-25 08:54 | Hospitalist Progress Note ---
Date of Service December 25, 2020 Assessment & Plan (1) Chest pain: Chest pain with in a patient with nonischemic cardiomyopathy EF of 15 to 20% status post dual-chamber ICD Patient troponin is chronically elevated but flat EKG did show Atrial paced rhythm with T wave inversions in the inferior leads on admission. Chest pain currently resolved Will appreciate cardiology evaluation (2) Sleep apnea: Continue CPAP at bedtime (3) Hypothyroidism: Continue levothyroxine (4) History of implantable cardioverter-defibrillator (ICD) placement: (5) Essential hypertension: (6) Cardiomyopathy: Continue Imdur, hydralazine, Toprol-XL, amiodarone Has history of ventricular tachycardia INR is subtherapeutic. Currently on IV heparin and warfarin (7) CKD (chronic kidney disease) stage 3, GFR 30-59 ml/min: Creatinine is 1.8 [was 2.14 October 2020] Monitor Avoid nephrotoxins Next Admission and Anticipated Discharge Date Admission Date: December 25, 2020 Subjective Patient seen and examined. Denies any chest pain at the moment, cough, shortness of breath Denies any dizziness Denies any nausea, vomiting or abdominal pain Physical Exam Constitutional: + well hydrated and + obese; no acute distress Eyes: PERRL, conjunctivae normal, anicteric sclerae ENMT: external ear and nose normal, oropharynx normal Respiratory: normal respiratory effort, lungs clear to auscultation Cardiovascular: Rate/Rhythm: regular rate and regular rhythm S1-S2 no pedal edema Chest (Breasts): Additional Comments: No chest wall tenderness Gastrointestinal (Abdomen): normal bowel sounds, soft, nontender, no hepatosplenomegaly Musculoskeletal: no cyanosis or clubbing, extremities motor strength 5/5 Neurologic: PERRL, EOMI, accommodation nl, no face palsy, no dysarthria Psychiatric: A+Ox3, euthymic affect Results & Data Results & Data ([facility]) Vital Signs (Past 12 Hours) Vital Signs Temp Pulse Pulse Resp BP BP Pulse Ox 12/25/20 07:12 36.6 C 60 20 148/80 H 96 12/25/20 05:00 60 16 92 12/25/20 04:41 65 14 96 12/25/20 04:02 12/25/20 03:45 36.6 C 65 18 152/81 H 95 12/25/20 03:07 64 15 164/97 H 94 12/25/20 03:00 151/83 H 96 12/25/20 01:00 60 16 129/67 95 12/25/20 00:30 62 15 147/83 H 96 12/25/20 00:17 76 19 155/84 H 96 12/25/20 00:00 81 20 177/89 H 96 12/24/20 23:55 36.6 C 66 16 155/84 H 97 Pulse Ox 12/25/20 07:12 12/25/20 05:00 12/25/20 04:41 12/25/20 04:02 95 12/25/20 03:45 12/25/20 03:07 12/25/20 03:00 12/25/20 01:00 12/25/20 00:30 12/25/20 00:17 12/25/20 00:00 12/24/20 23:55 Laboratory Results Laboratory Results - last 24 hr 12/24/20 12/25/20 12/25/20 23:40 00:10 00:10 WBC 5.76 RBC 4.72 Hgb 12.1 L Hct 37.9 L MCV 80.3 MCH 25.6 MCHC 31.9 L RDW Std Deviation 44.9 RDW Coeff of Chris 15.3 H Plt Count 260 MPV 10.2 Immature Gran % (Auto) 0.0 Neut % (Auto) 64.0 Lymph % (Auto) 22.2 [place] % (Auto) 7.6 Eos % (Auto) 5.7 Baso % (Auto) 0.5 Neut # (Auto) 3.68 Lymph # (Auto) 1.28 [place] # (Auto) 0.44 Eos # (Auto) 0.33 Baso # (Auto) 0.03 Immature Gran # (Auto) 0.00 PT 12.5 H INR 1.3 H Sodium 141 Potassium 4.0 Chloride 109 H Carbon Dioxide 27 Anion Gap 5.0 BUN 35 H Creatinine 1.93 H Est Cr Clr Drug Dosing 58.1 Est GFR ( Amer) 42.3 Est GFR (Non-Af Amer) 36.5 BUN/Creatinine Ratio 18.1 Glucose 119 H Calcium 8.3 L Magnesium Total Bilirubin 0.3 AST 44 H ALT 52 Alkaline Phosphatase 127 H Troponin I 0.154 H* Total Protein 8.0 Albumin 3.3 L Globulin 4.7 H Albumin/Globulin Ratio 0.7 L Lipase 439 H COVID-19 Eval Order SARS-CoV-2, RNA, NAAT 12/25/20 12/25/20 12/25/20 01:43 01:43 05:22 WBC 5.50 RBC 4.62 L Hgb 11.5 L Hct 37.2 L MCV 80.5 MCH 24.9 L MCHC 30.9 L RDW Std Deviation 44.8 RDW Coeff of Chris 15.3 H Plt Count 251 MPV 10.2 Immature Gran % (Auto) 0.2 Neut % (Auto) 59.0 Lymph % (Auto) 23.8 [place] % (Auto) 11.1 Eos % (Auto) 5.5 Baso % (Auto) 0.4 Neut # (Auto) 3.25 Lymph # (Auto) 1.31 [place] # (Auto) 0.61 H Eos # (Auto) 0.30 Baso # (Auto) 0.02 Immature Gran # (Auto) 0.01 PT INR Sodium Potassium Chloride Carbon Dioxide Anion Gap BUN Creatinine Est Cr Clr Drug Dosing Est GFR ( Amer) Est GFR (Non-Af Amer) BUN/Creatinine Ratio Glucose Calcium Magnesium Total Bilirubin AST ALT Alkaline Phosphatase Troponin I Total Protein Albumin Globulin Albumin/Globulin Ratio Lipase COVID-19 Eval [facility] SARS-CoV-2, RNA, NAAT NEGATIVE 12/25/20 12/25/20 05:22 05:22 WBC RBC Hgb Hct MCV MCH MCHC RDW Std Deviation RDW Coeff of Chris Plt Count MPV Immature Gran % (Auto) Neut % (Auto) Lymph % (Auto) [place] % (Auto) Eos % (Auto) Baso % (Auto) Neut # (Auto) Lymph # (Auto) [place] # (Auto) Eos # (Auto) Baso # (Auto) Immature Gran # (Auto) PT 13.5 H INR 1.4 H Sodium 140 Potassium 3.9 Chloride 109 H Carbon Dioxide 27 Anion Gap 4.0 BUN 35 H Creatinine 1.81 H Est Cr Clr Drug Dosing 59.1 Est GFR ( Amer) 45.7 Est GFR (Non-Af Amer) 39.5 BUN/Creatinine Ratio 19.4 Glucose 87 Calcium 8.4 L Magnesium 2.5 H Total Bilirubin AST ALT Alkaline Phosphatase Troponin I 0.149 H* Total Protein Albumin Globulin Albumin/Globulin Ratio Lipase COVID-19 Eval Order SARS-CoV-2, RNA, NAAT (1) Sleep apnea Sleep apnea type: obstructive Qualified Code(s): G47.33 - Obstructive sleep apnea (adult) (pediatric) (2) Hypothyroidism Hypothyroidism type: unspecified Qualified Code(s): E03.9 - Hypothyroidism, unspecified
[2020-12-25] MEDS: METOPROLOL SUCC 50MG EXT REL TAB PO SCH ×2 (09:04→20:38)
[2020-12-25] MEDS: ISOSORBIDE MONO EXTENDED REL 30 MG TABCR PO SCH (09:04)
[2020-12-25] MEDS: AMIODARONE 200 MG TAB PO SCH ×2 (09:05→20:36)
[2020-12-25] MEDS: hydrALAZINE HCL 25 MG TAB PO SCH ×3 (09:05→20:36)
--- NOTE | 2020-12-25 09:28 | Cardiology Consultation ---
Date of Consultation December 25, 2020 Assessment & Plan (1) Chest pain: (2) CKD (chronic kidney disease) stage 3, GFR 30-59 ml/min: (3) Implantable cardioverter-defibrillator discharge: (4) Recurrent ventricular tachycardia: (5) Cardiomyopathy: (6) Left ventricular aneurysm: This patient's chest pain is atypical and that it did not occur with activity. It was also sharp and paretic in nature and not associated with shortness of breath. Sublingual nitroglycerin did not really seem to help it as it resolved on its own after about 1/2-hour or 45 minutes. Unfortunately, the patient's cardiac troponins are not helpful as the patient has chronically elevated troponin but it is at baseline for him. His EKG is also not helpful. At this time I would recommend a conservative approach with observation. He should stay in the hospital on a campus monitor and we will reassess him tomorrow. Due to his cardiac history, I do not believe that stress testing would be helpful. According to our records, his last outpatient echocardiogram in June 2020 indicated an estimated left ventricular ejection fraction of around 20%. History of Present Illness Attending Physician: Lynda Rice MD History of Present Illness This is a 60-year-old male patient with a complex past cardiac history as outlined below. The patient presented with evidence of an presumed extensive anterior wall myocardial infarction in 1999. He has been treated for heart failure for several decades. He has a ICD implant since 2013. He also had a cardiac catheterization performed in 2011 that showed nonobstructive coronary artery disease. He has a history of paroxysmal atrial fibrillation as well as a previous apical thrombus. The patient is on chronic anticoagulation. More recently he has had problems with ventricular arrhythmias and consideration was given for ablative therapy however, his amiodarone was increased which seems to have stabilized his ventricular arrhythmias. He was in his usual state of health until last evening. He developed sharp left upper chest discomfort radiating to his left armpit. The discomfort was atypical and that it was not related to activity. It seemed to increase with with inspiration. The patient was not short of breath at the time. He took 1 sublingual nitroglycerin which did not immediately relieve his discomfort. He called his daughter who then called the paramedics. Patient states that after approximately half hour the pain had dissipated and resolved on its own. He was brought to the hospital and admitted through the emergency department. He is difficult to evaluate as he has chronic elevation of his cardiac troponins. This admission his cardiac troponins look to be at his baseline. Likely due to his history, his EKG is abnormal but it is unchanged from previous studies. He is currently pain-free. Past Medical and Surgical History: 1.Severe cardiomyopathy with expanded apical aneurysm initially diagnosed August 2000, likely with an old LA. 2.NYHA Class III, Stage C chronic systolic congestive heart failure 3.Status post dual-chamber pacemaker-defibrillator implantation April 2014. 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 5.Nonobstructive coronary disease cardiac catheterization last in March 2012. 6.Paroxysmal atrial fibrillation. 7.Symptomatic ventricular tachycardia 8.Moderate mitral and tricuspid regurgitation 9.Chronic obstructive sleep apnea on BiPAP and oxygen supplementation. 10.Hypertension 11.Dyslipidemia 12.Anxiety 13.Hypothyroidism 14.Chronic kidney disease, stage III 15.Kidney stones status post lithotripsy 16.Vitamin-D deficiency 17.Gout 18.Cervical disc disease status post surgery at [facility] around 2001 19.Lumbar disc disease, status post surgery by Dr. Robbins in January 2012, redo surgery by Dr. Zepeda in September 2019. 20.Carpal tunnel on right hand in 2008 21.T/A as a child. 22.UPPP in 2004 23.Lithotripsy 24.Arthroscopic knee surgery bilaterallly Allergies Allergy/AdvReac Type Severity Reaction Status Date / Time No Known Allergies Allergy Verified 12/25/20 00:43 Home Medications Medication Instructions Recorded Confirmed Type allopurinol 300 mg PO HS 09/07/19 12/25/20 History amiodarone 200 mg PO BID 09/07/19 12/25/20 History hydrocodone-acetaminophen 1 tab PO Q4H PRN 09/07/19 12/25/20 History aspirin [Aspirin Low Dose] 81 mg PO HS 09/17/19 12/25/20 History levothyroxine 112 mcg PO HS 01/11/20 12/25/20 History furosemide [Lasix] 40 mg PO PM 08/13/20 12/25/20 History nitroglycerin [Nitrostat] 0.4 mg SUBLINGUAL UD PRN 08/13/20 12/25/20 History allopurinol 100 mg PO HS 10/07/20 12/25/20 History warfarin 2.5 - 5 mg PO PM 10/07/20 12/25/20 History hydralazine 25 mg PO TID 12/25/20 12/25/20 History isosorbide mononitrate [Imdur] 30 mg PO DAILY 12/25/20 12/25/20 History metoprolol succinate 50 mg PO BID 12/25/20 12/25/20 History Patient History Medical History Afib CAD (coronary artery disease) non-obstructive Cardiomyopathy CHF (congestive heart failure) hx/no recent issues Chronic back pain Depression Gout History of kidney stones Hypertension Hypothyroidism Left ventricular aneurysm found around time of LA (15+ years ago)- cardio monitoring Myocardial Infarction 15+ years ago- medically managed Presence of combination internal cardiac defibrillator (ICD) and pacemaker Implanted 2013 (follows with cardiology/Dr. Jaffe)- last check 01/2019 Sleep apnea CPAP Surgical History H/O arthroscopic knee surgery multiple on bilateral knees H/O neck surgery History of cardiac cath 2011= NO STENTS History of cystoscopy History of esophagogastroduodenoscopy (EGD) History of implantable cardioverter-defibrillator (ICD) placement History of laminectomy L4-L5 History of lithotripsy History of lumbar surgery 09/17/19 Grade 1 view Mac 3, magnet placed on L chest wall during procedure History of tonsillectomy Status post uvulopalatopharyngoplasty Family History Father FHx: lung cancer Social History Smoking Status: Never smoker Second Hand Exposure: No; Hx Alcohol Use: No Hx Substance Use: No Preferred Language: Polish Communication Ability: Effective Pinion Staker Required: No Beliefs That Will Affect Care: None Current Living Situation: Alone Current Living Situation Comment: Family in duplex Other Information That Helps Us Care for You: No Feels Safe at Home: Yes Safety Concerns: Feels Safe At This Time Assistive Devices: CPAP and Glasses Review of Systems Review of Systems: All systems reviewed & are unremarkable except as noted in HPI & below Nothing additional to add Physical Exam Physical Exam: General: no acute distress and stated age Head: normocephalic, no masses, lesions, tenderness or abnormalities Eyes: conjunctiva are pink and non-injected, sclera clear Neck: supple, no adenopathy, no bruits, normal jugular venous pulse, no hepatojugular reflux Chest: normal shape and normal respiratory effort Lungs: clear to auscultation and percussion Cardiac Exam: - regular rate & rhythm, no murmurs gallops or rubs - normal S1, normal S2 Pulses: 2(+) throughout Abdomen: abdomen soft, non-tender, no abnormal masses and no hepatosplenomegaly Musculoskeletal: no gait disturbance, no joint inflammation, no deforming arthritis Extremities: no edema and no cyanosis Neuro: grossly normal exam Results & Data ([facility]) Vital Signs (Past 12 Hours) Vital Signs Temp Pulse Pulse Resp BP BP Pulse Ox 12/25/20 07:12 36.6 C 60 20 148/80 H 96 12/25/20 05:00 60 16 92 12/25/20 04:41 65 14 96 12/25/20 04:02 12/25/20 03:45 36.6 C 65 18 152/81 H 95 12/25/20 03:07 64 15 164/97 H 94 12/25/20 03:00 151/83 H 96 12/25/20 01:00 60 16 129/67 95 12/25/20 00:30 62 15 147/83 H 96 12/25/20 00:17 76 19 155/84 H 96 12/25/20 00:00 81 20 177/89 H 96 12/24/20 23:55 36.6 C 66 16 155/84 H 97 Pulse Ox 12/25/20 07:12 12/25/20 05:00 12/25/20 04:41 12/25/20 04:02 95 12/25/20 03:45 12/25/20 03:07 12/25/20 03:00 12/25/20 01:00 12/25/20 00:30 12/25/20 00:17 12/25/20 00:00 12/24/20 23:55 Laboratory Results Laboratory Results - last 24 hr 12/24/20 12/25/20 12/25/20 23:40 00:10 00:10 WBC 5.76 RBC 4.72 Hgb 12.1 L Hct 37.9 L MCV 80.3 MCH 25.6 MCHC 31.9 L RDW Std Deviation 44.9 RDW Coeff of Chris 15.3 H Plt Count 260 MPV 10.2 Immature Gran % (Auto) 0.0 Neut % (Auto) 64.0 Lymph % (Auto) 22.2 [place] % (Auto) 7.6 Eos % (Auto) 5.7 Baso % (Auto) 0.5 Neut # (Auto) 3.68 Lymph # (Auto) 1.28 [place] # (Auto) 0.44 Eos # (Auto) 0.33 Baso # (Auto) 0.03 Immature Gran # (Auto) 0.00 PT 12.5 H INR 1.3 H APTT PTT Ratio Sodium 141 Potassium 4.0 Chloride 109 H Carbon Dioxide 27 Anion Gap 5.0 BUN 35 H Creatinine 1.93 H Est Cr Clr Drug Dosing 58.1 Est GFR ( Amer) 42.3 Est GFR (Non-Af Amer) 36.5 BUN/Creatinine Ratio 18.1 Glucose 119 H Calcium 8.3 L Magnesium Total Bilirubin 0.3 AST 44 H ALT 52 Alkaline Phosphatase 127 H Troponin I 0.154 H* Total Protein 8.0 Albumin 3.3 L Globulin 4.7 H Albumin/Globulin Ratio 0.7 L Lipase 439 H COVID-19 Eval Order SARS-CoV-2, RNA, NAAT 12/25/20 12/25/20 12/25/20 01:43 01:43 05:22 WBC 5.50 RBC 4.62 L Hgb 11.5 L Hct 37.2 L MCV 80.5 MCH 24.9 L MCHC 30.9 L RDW Std Deviation 44.8 RDW Coeff of Chris 15.3 H Plt Count 251 MPV 10.2 Immature Gran % (Auto) 0.2 Neut % (Auto) 59.0 Lymph % (Auto) 23.8 [place] % (Auto) 11.1 Eos % (Auto) 5.5 Baso % (Auto) 0.4 Neut # (Auto) 3.25 Lymph # (Auto) 1.31 [place] # (Auto) 0.61 H Eos # (Auto) 0.30 Baso # (Auto) 0.02 Immature Gran # (Auto) 0.01 PT INR APTT PTT Ratio Sodium Potassium Chloride Carbon Dioxide Anion Gap BUN Creatinine Est Cr Clr Drug Dosing Est GFR ( Amer) Est GFR (Non-Af Amer) BUN/Creatinine Ratio Glucose Calcium Magnesium Total Bilirubin AST ALT Alkaline Phosphatase Troponin I Total Protein Albumin Globulin Albumin/Globulin Ratio Lipase COVID-19 Eval [facility] SARS-CoV-2, RNA, NAAT NEGATIVE 12/25/20 12/25/20 12/25/20 05:22 05:22 10:47 WBC RBC Hgb Hct MCV MCH MCHC RDW Std Deviation RDW Coeff of Chris Plt Count MPV Immature Gran % (Auto) Neut % (Auto) Lymph % (Auto) [place] % (Auto) Eos % (Auto) Baso % (Auto) Neut # (Auto) Lymph # (Auto) [place] # (Auto) Eos # (Auto) Baso # (Auto) Immature Gran # (Auto) PT 13.5 H INR 1.4 H APTT PTT Ratio Sodium 140 Potassium 3.9 Chloride 109 H Carbon Dioxide 27 Anion Gap 4.0 BUN 35 H Creatinine 1.81 H Est Cr Clr Drug Dosing 59.1 Est GFR ( Amer) 45.7 Est GFR (Non-Af Amer) 39.5 BUN/Creatinine Ratio 19.4 Glucose 87 Calcium 8.4 L Magnesium 2.5 H Total Bilirubin AST ALT Alkaline Phosphatase Troponin I 0.149 H* Pending Total Protein Albumin Globulin Albumin/Globulin Ratio Lipase COVID-19 Eval Order SARS-CoV-2, RNA, NAAT 12/25/20 10:47 WBC RBC Hgb Hct MCV MCH MCHC RDW Std Deviation RDW Coeff of Chris Plt Count MPV Immature Gran % (Auto) Neut % (Auto) Lymph % (Auto) [place] % (Auto) Eos % (Auto) Baso % (Auto) Neut # (Auto) Lymph # (Auto) [place] # (Auto) Eos # (Auto) Baso # (Auto) Immature Gran # (Auto) PT INR APTT 34.3 H PTT Ratio 1.3 Sodium Potassium Chloride Carbon Dioxide Anion Gap BUN Creatinine Est Cr Clr Drug Dosing Est GFR ( Amer) Est GFR (Non-Af Amer) BUN/Creatinine Ratio Glucose Calcium Magnesium Total Bilirubin AST ALT Alkaline Phosphatase Troponin I Total Protein Albumin Globulin Albumin/Globulin Ratio Lipase COVID-19 Eval Order SARS-CoV-2, RNA, NAAT Medications Administered Current Inpatient Medications Acetaminophen (Acetaminophen 325 Mg Tab) 650 mg PO Q4H PRN PRN Reason: Pain or Fever Stop: 01/24/21 04:01 Hydrocodone Bitart/Acetaminophen (Hydrocodone/Acetamophen 5/325mg Tab) 1 tab PO Q4H PRN PRN Reason: Pain Stop: 01/08/21 04:01 Allopurinol (Allopurinol 300 Mg Tab) 300 mg PO HS [facility] Stop: 01/24/21 20:59 Allopurinol (Allopurinol 100 Mg Tab) 100 mg PO HS TASH Stop: 01/24/21 20:59 Amiodarone HCl (Amiodarone 200 Mg Tab) 200 mg PO BID TASH Stop: 01/24/21 08:59 Last Admin: 12/25/20 09:05 Dose: 200 mg Documented by: Aspirin (Aspirin 81 Mg Ectab) 81 mg PO HS [facility] Stop: 01/24/21 20:59 Furosemide (Furosemide 40 Mg Tab) 40 mg PO PM [facility] Stop: 01/24/21 20:59 Hydralazine HCl (Hydralazine Hcl 25 Mg Tab) 25 mg PO TID TASH Stop: 01/24/21 08:59 Last Admin: 12/25/20 09:05 Dose: 25 mg Documented by: Heparin Sodium/Dextrose (Heparin Sodium/Dextrose) 25,000 units in 500 mls @ 24 mls/hr IV .[id number] [facility]; Protocol Stop: 01/24/21 04:01 Last Titration: 12/25/20 11:29 Dose: 1,200 units/hr, 24 mls/hr Documented by: Heparin Sodium (Porcine) 4,000 (units/ Syringe) 4 mls @ 10 mls/min IV NOW ONE Stop: 12/25/20 11:46 Last Admin: 12/25/20 11:39 Dose: 10 mls/min Documented by: Isosorbide Mononitrate (Isosorbide [place] Extended Rel 30 Mg Tabcr) 30 mg PO DAILY TASH Stop: 01/24/21 08:59 Last Admin: 12/25/20 09:04 Dose: 30 mg Documented by: Levothyroxine Sodium (Levothyroxine Sodium 112 Mcg Tablet) 112 mcg PO HS [facility] Stop: 01/24/21 20:59 Metoprolol Succinate (Metoprolol Succ 50mg Ext Rel Tab) 50 mg PO BID [facility] Stop: 01/24/21 08:59 Last Admin: 12/25/20 09:04 Dose: 50 mg Documented by: Nitroglycerin (Nitroglycerin Sl 0.4 Mg/Tab Tab) 0.4 mg SL UD PRN PRN Reason: Chest Pain Stop: 01/24/21 04:01 Ondansetron HCl (Ondansetron Inj 2 Mg/Ml 2 Ml Vial) 4 mg IV Q6H PRN PRN Reason: Nausea Stop: 01/24/21 04:01 Polyethylene Glycol (Polyethylene (Miralax) 17 Gm Pack) 17 gm PO DAILY PRN PRN Reason: Constipation Stop: 01/24/21 04:01 Warfarin Sodium (Warfarin Sod 5 Mg Tab) 5 mg PO DAILY@1600 TASH Stop: 01/24/21 15:59
[2020-12-25 11:14] LABS: Partial Thromboplastin Ratio 1.3; Partial Thromboplastin Time 34.3 Seconds (21.0-31.0)
[2020-12-25] MEDS ORDERED: Nursing to Pharmacy Communication SCH (11:30)
[2020-12-25] MEDS ORDERED: HEPARIN IV BOLUS 4,500 UNITS in SYRINGE 0 ML IV ONE (11:45)
[2020-12-25] MEDS ORDERED: HEPARIN IV BOLUS 4,000 UNITS in SYRINGE 0 ML IV ONE (11:45)
--- NOTE | 2020-12-25 13:16 | Electrocardiogram Report ---
Test Reason : Blood Pressure : / mmHG Vent. Rate : 070 BPM Atrial Rate : 070 BPM P-R Int : 276 ms QRS Dur : 134 ms QT Int : 444 ms P-R-T Axes : 000 076 -29 degrees QTc Int : 479 ms Atrial-paced rhythm with prolonged AV conduction Non-specific intra-ventricular conduction block T wave abnormality, consider inferior ischemia Abnormal ECG When compared with ECG of 07-OCT-2020 08:19, Electronic atrial pacemaker has replaced Sinus rhythm QRS duration has increased Criteria for Inferior infarct are no longer Present T wave inversion now evident in Inferior leads Confirmed by Dexter Jama ([id number]) on 12/25/2020 1:16:27 PM Referred By: REFERRED SELF Confirmed By:Maik Jama
[2020-12-25] MEDS ORDERED: WARFARIN SOD 5 MG TAB PO SCH (16:00)
[2020-12-25 17:37] LABS: Partial Thromboplastin Ratio 1.7
[2020-12-25 17:50] LABS: Partial Thromboplastin Time 45.4 Seconds (21.0-31.0)
[2020-12-25] MEDS ORDERED: allopurinoL 300 MG TAB PO SCH (21:00)
[2020-12-25] MEDS ORDERED: LEVOTHYROXINE SODIUM 112 MCG TABLET PO SCH (21:00)
[2020-12-25] MEDS ORDERED: allopurinoL 100 MG TAB PO SCH (21:00)
[2020-12-25] MEDS ORDERED: ASPIRIN 81 MG ECTAB PO SCH (21:00)
[2020-12-25] MEDS ORDERED: FUROSEMIDE 40 MG TAB PO SCH (21:00)
[2020-12-26 00:37] LABS: Partial Thromboplastin Ratio 1.6; Partial Thromboplastin Time 41.7 Seconds (21.0-31.0)
[2020-12-26] MEDS: HEPARIN SODIUM/DEXTROSE 25,000 UNITS/500 ML BAG IV SCH (02:03)
[2020-12-26 07:10] LABS: Hematocrit (blood only) 38.2 % (42-52); Hemoglobin 12.1 g/dL (14.0-18.0); Mean Corpuscular Hemoglobin 25.3 pg (25-34); Mean Corpuscular Hgb Conc 31.7 g/dL (32-36); Mean Corpuscular Volume 79.9 fL (80-100); Mean Platelet Volume 10.3 fL (7.4-10.4); Platelet Count 263 K/uL (130-400); RDW Coefficient of Variation 15.3 % (11.5-14.5); Red Blood Count 4.78 M/uL (4.7-6.1); White Blood Count 5.48 K/uL (4.8-10.8)
[2020-12-26 07:15] LABS: INR 1.4 (0.9-1.1); Partial Thromboplastin Ratio 1.6; Partial Thromboplastin Time 42.3 Seconds (21.0-31.0); Prothrombin Time 13.7 Seconds (9.0-12.0)
[2020-12-26 07:37] LABS: BUN Creatinine Ratio 13.1 (10-20); Calcium 8.5 mg/dl (8.5-10.1); Creatinine Clr Calc Pharmacy 55.5 ml/min; Est GFR (African American) 42.9; Potassium 3.9 mmol/L (3.5-5.1)
[2020-12-26] MEDS: METOPROLOL SUCC 50MG EXT REL TAB PO SCH (07:45)
[2020-12-26] MEDS: AMIODARONE 200 MG TAB PO SCH (07:45)
[2020-12-26] MEDS: ISOSORBIDE MONO EXTENDED REL 30 MG TABCR PO SCH (07:45)
[2020-12-26] MEDS: hydrALAZINE HCL 25 MG TAB PO SCH (07:45)
--- NOTE | 2020-12-26 08:23 | Electrocardiogram Report ---
Test Reason : Blood Pressure : / mmHG Vent. Rate : 060 BPM Atrial Rate : 060 BPM P-R Int : 274 ms QRS Dur : 116 ms QT Int : 478 ms P-R-T Axes : 092 055 099 degrees QTc Int : 478 ms Atrial-paced rhythm with prolonged AV conduction Poor R wave progression, consider anterior OK vs. lead placement vs. LVH T wave abnormality, consider lateral ischemia Prolonged QT Abnormal ECG Confirmed by Dexter Jama ([id number] on 12/26/2020 8:23:09 AM Referred By: REFERRED SELF Confirmed By:Maik Jama
--- NOTE | 2020-12-26 09:03 | Cardiology Progress Note ---
Date of Service December 26, 2020 Assessment & Plan (1) Chest pain: (2) CKD (chronic kidney disease) stage 3, GFR 30-59 ml/min: (3) Implantable cardioverter-defibrillator discharge: (4) Recurrent ventricular tachycardia: (5) Cardiomyopathy: (6) Left ventricular aneurysm: The patient had no additional chest pain over the past 24 hours. His cardiac markers are at baseline. At this point I would recommend that we ambulate him in the packer and if he is feeling well I think we can discharge him to outpatient follow-up. I will arrange follow-up for him. Admission and Anticipated Discharge Date Admission Date: December 25, 2020 Janet Munoz had an uneventful night last night. No additional chest pain. He has been ambulating in his room with no difficulties. Review of Systems Review of Systems: All systems reviewed & are unremarkable except as noted in Subjective Physical Exam Physical Exam: General: no acute distress and stated age Head: normocephalic, no masses, lesions, tenderness or abnormalities Eyes: conjunctiva are pink and non-injected, sclera clear Neck: supple, no adenopathy, no bruits, normal jugular venous pulse, no hepatojugular reflux Chest: normal shape and normal respiratory effort Lungs: clear to auscultation and percussion Cardiac Exam: - regular rate & rhythm, no murmurs gallops or rubs - normal S1, normal S2 Pulses: 2(+) throughout Abdomen: abdomen soft, non-tender, no abnormal masses and no hepatosplenomegaly Musculoskeletal: no gait disturbance, no joint inflammation, no deforming arthritis Extremities: no edema and no cyanosis Neuro: grossly normal exam Results & Data ([facility]) Vital Signs (Past 12 Hours) Vital Signs Temp Pulse Pulse Resp BP BP Pulse Ox 12/26/20 07:31 36.7 C 61 16 134/96 94 12/26/20 04:02 12/26/20 03:26 36.8 C 60 20 156/90 H 97 12/26/20 03:03 61 18 94 12/25/20 23:41 36.8 C 69 20 147/87 H 95 Pulse Ox 12/26/20 07:31 12/26/20 04:02 97 12/26/20 03:26 12/26/20 03:03 12/25/20 23:41 Laboratory Results Laboratory Results - last 24 hr 12/25/20 12/25/20 12/25/20 10:47 10:47 17:01 WBC RBC Hgb Hct MCV MCH MCHC RDW Std Deviation RDW Coeff of Chris Plt Count MPV PT INR APTT 34.3 H PTT Ratio 1.3 Sodium Potassium Chloride Carbon Dioxide Anion Gap BUN Creatinine Est Cr Clr Drug Dosing Est GFR ( Amer) Est GFR (Non-Af Amer) BUN/Creatinine Ratio Glucose Calcium Troponin I 0.155 H* 0.161 H* 12/25/20 12/26/20 12/26/20 17:01 00:11 06:38 WBC RBC Hgb Hct MCV MCH MCHC RDW Std Deviation RDW Coeff of Chris Plt Count MPV PT 13.7 H INR 1.4 H APTT 45.4 H* 41.7 H 42.3 H PTT Ratio 1.7 1.6 1.6 Sodium Potassium Chloride Carbon Dioxide Anion Gap BUN Creatinine Est Cr Clr Drug Dosing Est GFR ( Amer) Est GFR (Non-Af Amer) BUN/Creatinine Ratio Glucose Calcium Troponin I 12/26/20 12/26/20 06:38 06:38 WBC 5.48 RBC 4.78 Hgb 12.1 L Hct 38.2 L MCV 79.9 L MCH 25.3 MCHC 31.7 L RDW Std Deviation 45.0 RDW Coeff of Chris 15.3 H Plt Count 263 MPV 10.3 PT INR APTT PTT Ratio Sodium 138 Potassium 3.9 Chloride 104 Carbon Dioxide 27 Anion Gap 7.0 BUN 25 H Creatinine 1.91 H Est Cr Clr Drug Dosing 55.5 Est GFR ( Amer) 42.9 Est GFR (Non-Af Amer) 37.0 BUN/Creatinine Ratio 13.1 Glucose 97 Calcium 8.5 Troponin I Diagnostic Findings Echocardiogram completed yesterday which I will review. Medications Administered Current Inpatient Medications Acetaminophen (Acetaminophen 325 Mg Tab) 650 mg PO Q4H PRN PRN Reason: Pain or Fever Stop: 01/24/21 04:01 Hydrocodone Bitart/Acetaminophen (Hydrocodone/Acetamophen 5/325mg Tab) 1 tab PO Q4H PRN PRN Reason: Pain Stop: 01/08/21 04:01 Allopurinol (Allopurinol 300 Mg Tab) 300 mg PO HS TASH Stop: 01/24/21 20:59 Last Admin: 12/25/20 20:37 Dose: 300 mg Documented by: Allopurinol (Allopurinol 100 Mg Tab) 100 mg PO HS [facility] Stop: 01/24/21 20:59 Last Admin: 12/25/20 20:37 Dose: 100 mg Documented by: Amiodarone HCl (Amiodarone 200 Mg Tab) 200 mg PO BID TASH Stop: 01/24/21 08:59 Last Admin: 12/26/20 07:45 Dose: 200 mg Documented by: Aspirin (Aspirin 81 Mg Ectab) 81 mg PO HS TASH Stop: 01/24/21 20:59 Last Admin: 12/25/20 20:36 Dose: 81 mg Documented by: Furosemide (Furosemide 40 Mg Tab) 40 mg PO PM TASH Stop: 01/24/21 20:59 Last Admin: 12/25/20 20:36 Dose: 40 mg Documented by: Hydralazine HCl (Hydralazine Hcl 25 Mg Tab) 25 mg PO TID TASH Stop: 01/24/21 08:59 Last Admin: 12/26/20 07:45 Dose: 25 mg Documented by: Heparin Sodium/Dextrose (Heparin Sodium/Dextrose) 25,000 units in 500 mls @ 28 mls/hr IV .[id number] [facility]; Protocol Stop: 01/24/21 04:01 Last Titration: 12/26/20 07:19 Dose: 1,400 units/hr, 28 mls/hr Documented by: Isosorbide Mononitrate (Isosorbide Armstrong Extended Rel 30 Mg Tabcr) 30 mg PO DAILY [facility] Stop: 01/24/21 08:59 Last Admin: 12/26/20 07:45 Dose: 30 mg Documented by: Levothyroxine Sodium (Levothyroxine Sodium 112 Mcg Tablet) 112 mcg PO HS [facility] Stop: 01/24/21 20:59 Last Admin: 12/25/20 20:37 Dose: 112 mcg Documented by: Metoprolol Succinate (Metoprolol Succ 50mg Ext Rel Tab) 50 mg PO BID [facility] Stop: 01/24/21 08:59 Last Admin: 12/26/20 07:45 Dose: 50 mg Documented by: Nitroglycerin (Nitroglycerin Sl 0.4 Mg/Tab Tab) 0.4 mg SL UD PRN PRN Reason: Chest Pain Stop: 01/24/21 04:01 Ondansetron HCl (Ondansetron Inj 2 Mg/Ml 2 Ml Vial) 4 mg IV Q6H PRN PRN Reason: Nausea Stop: 01/24/21 04:01 Polyethylene Glycol (Polyethylene (Miralax) 17 Gm Pack) 17 gm PO DAILY PRN PRN Reason: Constipation Stop: 01/24/21 04:01 Warfarin Sodium (Warfarin Sod 5 Mg Tab) 5 mg PO DAILY@1600 TASH Stop: 01/24/21 15:59 Last Admin: 12/25/20 17:05 Dose: 5 mg Documented by:
--- NOTE | 2020-12-26 11:22 | Discharge Summary ---
Date of Service December 26, 2020 Admission HPI Per Admitting Provider 60-year-old male with past medical history significant for ischemic cardiomyopathy, status post ICD, severe obstructive sleep apnea, CAD, history of CT, hypertension, hypothyroidism, dyslipidemia, generalized anxiety disorder, paroxysmal atrial fibrillation, gout, obesity, cervical spondylosis, sacroiliitis, who presents with chest pain. The patient says around 10:00 p.m., he started having chest pressure about 8/10 in severity in the left side of chest radiating to the left axilla. He tried to talk to his daughter on the phone, but it got worse and he felt lightheaded when he called EMS. He took nitro and brought to the ER. By the time they came to the ER, chest pain got resolved, but EKG shows some T-wave inversions in inferior leads. Currently resting comfortably and hemodynamically stable. Currently asymptomatic. Denies any shortness of breath. No cough, no headache, no blurred vision, no earache, no runny nose, no sore throat, no fever, no chills, no nausea, no abdominal pain, no dizziness. Normal bowel and bladder movements. No swelling in the legs, no rash. Admission Exam Per Admitting Provider GENERAL: The patient is morbidly obese, currently not in acute distress. VITAL SIGNS: Temperature 36.6, pulse 60, respiratory rate 16, blood pressure 129/67, oxygen 95% on room air. HEENT: Pupils equal, round, and reactive to light. Oral mucosa moist. NECK: No JVD, no neck masses seen. CARDIOVASCULAR: S1, S2 heard, regular rate and rhythm, no murmur, no gallop. RESPIRATORY SYSTEM: Normal AP diameter. No accessory muscle use. No wheezing, no crackles. ABDOMEN: Soft, bowel sounds present, nontender. No distention. CENTRAL NERVOUS SYSTEM: Cranial nerves II-XII grossly intact. Nonfocal. EXTREMITIES: No edema, no erythema. Principal Diagnosis Chest pain Subtherapeutic INR Discharge Exam Constitutional + well hydrated and + obese; no acute distress Eyes PERRL, conjunctivae normal, anicteric sclerae ENMT external ear and nose normal, oropharynx normal Respiratory normal respiratory effort, lungs clear to auscultation Cardiovascular Rate/Rhythm: regular rate and regular rhythm S1-S2, no pedal edema Gastrointestinal (Abdomen) normal bowel sounds, soft, nontender, no hepatosplenomegaly Musculoskeletal no cyanosis or clubbing, extremities motor strength 5/5 Neurologic PERRL, EOMI, accommodation nl, no face palsy, no dysarthria Psychiatric A+Ox3, euthymic affect Discharge Data Allergies Allergy/AdvReac Type Severity Reaction Status Date / Time No Known Allergies Allergy Verified 12/25/20 00:43 Consultations 12/25/20 01:34 ED Decision to Admit Stat 12/25/20 04:02 Consult Case Management - Discharge Planning Routine 12/25/20 08:00 Consult Cardiology Routine Hospital Course (1) Chest pain: Chest pain in a patient with nonischemic cardiomyopathy EF of 15 to 20% status post dual-chamber ICD Patient troponin is chronically elevated but flat EKG did show Atrial paced rhythm with T wave inversions in the inferior leads on admission. Chest pain resolved Was evaluated by Cardiology. Echo show EF of 20-25%, no thrombus, wall motion abnormalities with thining of myocardium at septum, apex, anterior wall consistent with previous LV aneurysm Patient discharged to follow up with Cardiology outpatient (2) Sleep apnea: Continue CPAP at bedtime (3) Hypothyroidism: Continue levothyroxine (4) History of implantable cardioverter-defibrillator (ICD) placement: (5) Essential hypertension: (6) Cardiomyopathy: Continue Imdur, hydralazine, Toprol-XL, amiodarone Has history of ventricular tachycardia INR is subtherapeutic on admission at 1.3 Was put on heparin iv + warfarin while inpatient Advised to take 5mg of warfarin today instead of usual 2.5mg Coordinator to notify [facility] clinic for close follow up of INR and continued warfar in managment (7) CKD (chronic kidney disease) stage 3, GFR 30-59 ml/min: Creatinine is 1.91 [was 2.14 October 2020] Monitor Avoid nephrotoxins Total Time Total Time Spent Total Time Spent (In Minutes): 35 Total Time Includes: Examination of the Patient, Discharge Planning, Medication Reconciliation and Communication With Other Providers Discharge Plan Discharge Items Patient Disposition: Home - Self-Care Reason For Visit: CHEST PAIN Discharge Diagnosis: Chest pain Activity: Resume your previous activity Non-emergency contact: Primary Care Provider and 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 Trujillo. You came to the hospital complaining of chest pain. You are also evaluated. The chest pain resolved. Your INR was also found to be below range. Please take 5 mg of warfarin today and follow-up with anticoagulation clinic for continued management of your warfarin dose. 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 Continue to take your medication as prescribed. It is a pleasure taking care of you Pending Studies at Discharge: No Stand-Alone Forms: My [facility] [facility], Smoking Cessation Medications and DC Order Prescriptions: Continued amiodarone 200 mg Tablet 200 mg PO BID RF: 0 hydrocodone-acetaminophen 5-325 mg Tablet 1 tab PO Q4H PRN (Reason: Pain) RF: 0 allopurinol 300 mg Tablet 300 mg PO HS RF: 0 aspirin [Aspirin Low Dose] 81 mg Tablet,Delayed Release (Dr/Ec) 81 mg PO HS RF: 0 allopurinol 100 mg tablet 100 mg PO HS RF: 0 warfarin 5 mg tablet 2.5 - 5 mg PO PM RF: 0 metoprolol succinate 50 mg tablet extended release 24 hr 50 mg PO BID RF: 0 isosorbide mononitrate 30 mg Tablet Extended Release 24 Hr 30 mg PO DAILY RF: 0 hydralazine 25 mg Tablet 25 mg PO TID RF: 0 levothyroxine 112 mcg tablet 112 mcg PO HS RF: 0 furosemide [Lasix] 40 mg tablet 40 mg PO PM RF: 0 nitroglycerin [Nitrostat] 0.4 mg Tablet, Sublingual 0.4 mg sublingual UD PRN (Reason: Chest Pain) RF: 0 Discharge Orders: Discharge Order (Routine); Ordered 12/26/20 Ordered By: Lynda Rice Admission Data Admit Date/Time: 12/25/20 02:31 Attending Provider: Lynda Rice I. Admit Provider: Hung Cortez Primary Care Provider: Titi Rodriguez Other Providers: Hung Cortez ; Sandro Ma Other Interventions: Discharge Summary Assessment (RN) Last Done: 12/26/20 11:40
--- NOTE | 2021-01-04 13:14 | Coding Query ---
CODING QUERY To promote full compliance with coding requirements relating to patient care, provider participation is requested in all cases of chute boss uncertainty. Please assist us with the question(s) below: Coding Question(s): Based on documentation in the medical record, patient was admitted with Chest Pain. Please clarify probable cause or most probable cause of the Chest Pain below. Physician's Response(s): Atypical chest pain Possibly cardiac related considering patient history and presentation Thank you Pedro Portillo Principal Diagnosis: "that condition established after study, to be chiefly responsible for occasioning the admission of the patient to the hospital for care." Co-Existing Principal Diagnosis: "when two or more diagnoses equally meet the criteria for principal diagnosis as determined by the circumstances of admission, diagnostic work up, and/or therapy provided, and the Alphabetic Index, Tabular List, or another coding guideline does not provide sequencing direction, any one of the diagnoses may be sequenced first." "When the physician has documented what appears to be a current diagnosis in the body of the record, but has not included the diagnosis in the final diagnostic statement, the physician should be asked whether the diagnosis should be added." (Source Coding [facility] 2 QTR90. p3-4) MARY ANNE
== END 2020-12-26 12:22 | disposition home or self-care (01) | DRG 313 ==
LOC: ED 23:54 → 2E 12-25 02:31

== ENCOUNTER 2021-10-20 15:18 | Inpatient (IN) ==
[2021-10-20] MEDS ORDERED: NITROGLYCERIN SL 0.4 MG/TAB TAB SL STA (15:37)
[2021-10-20] MEDS ORDERED: NITROGLYCERIN SL 0.4 MG/TAB TAB ONE (15:39)
[2021-10-20 15:47] LABS: Basophils # (auto) 0.02 K/uL (0-0.2); Basophils % (auto) 0.3 %; Eosinophils # (auto) 0.13 K/uL (0-0.5); Eosinophils % (auto) 2.1 %; Hematocrit (blood only) 42.5 % (42-52); Hemoglobin 13.7 g/dL (14.0-18.0); Immature Granulocytes # (auto) 0.02 K/uL (0.00-0.02); Immature Granulocytes % (auto) 0.3 %; Lymphocytes # (auto) 0.79 K/uL (1.2-3.4); Lymphocytes % (auto) 12.6 %; Mean Corpuscular Hemoglobin 28.7 pg (25-34); Mean Corpuscular Hgb Conc 32.2 g/dL (32-36); Mean Corpuscular Volume 88.9 fL (80-100); Mean Platelet Volume 10.7 fL (7.4-10.4); Monocytes # (auto) 0.48 K/uL (0.11-0.59); Monocytes % (auto) 7.7 %; Neutrophils # (auto) 4.82 K/uL (1.4-6.5); Platelet Count 190 K/uL (130-400); RDW Coefficient of Variation 16.4 % (11.5-14.5); RDW Standard Deviation 53.5 fL (36.4-46.3); Red Blood Count 4.78 M/uL (4.7-6.1); White Blood Count 6.26 K/uL (4.8-10.8)
[2021-10-20 15:56] LABS: Albumin Level 2.8 gm/dl (3.4-5.0); BUN Creatinine Ratio 9.5 (10-20); Calcium 8.5 mg/dl (8.5-10.1); Creatinine Clr Calc Pharmacy 78.8 ml/min; Est GFR (African American) 65.9 ml/min; Est GFR (Non-African American) 56.9 ml/min; Potassium 3.6 mmol/L (3.5-5.1)
[2021-10-20 15:58] LABS: INR 1.1 (0.9-1.1); Partial Thromboplastin Ratio 1.1; Partial Thromboplastin Time 28.7 Seconds (21.0-31.0); Prothrombin Time 11.4 Seconds (9.0-12.0)
--- NOTE | 2021-10-20 15:59 | XRay Report ---
XR chest 1V portable HISTORY: palpitations, dizzy COMPARISON: Chest 12/25/2020. FINDINGS: There are low lung volumes with elevation of the right hemidiaphragm. This remains unchange d. No pleural effusions. No pneumothorax. The left-sided pacemaker/diffuse bladder. The heart remains enlarged. There is mild central pulmonary vascular congestion without overt edema. No new focal lung consolidations to suggest pneumonia. IMPRESSION: Cardiomegaly with mild central pulmonary vascular congestion without overt edema. This has slightly p rogressed. ACT 112: Negative or not required by law. Electronically signed by: Galen Beaver M.D. 10/20/2021 3:58 PM
[2021-10-20 16:11] LABS: Albumin Globulin Ratio 0.6 (0.9-2); Bilirubin,Total 0.5 mg/dl (0.2-1); Globulin 4.4 gm/dl (2.5-4.0); Thyroid Stimulating Hormone 4.17 uIu/ml (0.300-4.500); Total Protein 7.2 gm/dl (6.4-8.2); Troponin I 0.17 ng/ml (0-0.045)
--- NOTE | 2021-10-20 16:34 | Emergency Department Note ---
Impression & Plan Ventricular tachycardia (paroxysmal), HTN (hypertension), Chest pain, Dizziness ED Provider Note Provider: Taye Ramirez MD DATE OF SERVICE: 10/20/2021 CHIEF COMPLAINT: Chest pressure, palpitations HISTORY OF PRESENT ILLNESS: Patient is a 61-year-old gentleman extensive past medical history including cardiomyopathy, AICD, VT, CKD, hypertension, CHF, atrial fibrillation, and colon cancer presenting here today reporting onset this afternoon of sudden onset of odd sensation in his chest with some pressure and pain into his neck and back and dizziness sensation. This lasted less than a minute or so. He states it felt similar to prior events were he has had arrhythmias and when he has been shocked by his AICD but this did not chock him today. Denies loss of consciousness or trauma. States he was just in the kitchen cleaning lightly when this happened. Denies significant chest pain or back pain at this time. Denies recent illness or fever. Denies significant leg swelling. Patient states has been climbing with his home medications including his amiodarone. Patient did contact cardiology office by whom he was referred here as he had an arrhythmia on his AICD. Patient states he occasionally has a twinge of a palpitation. REVIEW OF SYSTEMS: A total of 10 review of systems was obtained and negative except as stated above in the HPI. PAST MEDICAL HISTORY: As noted above MEDICATIONS: Reviewed home medications SOCIAL HISTORY: Lives at home, former smoker PHYSICAL EXAM: GENERAL: alert and oriented in no acute distress on stretcher Head: normocephalic and atraumatic EYES: No injection, discharge or icterus. NECK: Trachea midline. ENT: Mucous membranes pink and moist. LUNGS: Airway patent. No retractions. Breath sounds clear with good air entry bilaterally. HEART: Regular rate and rhythm. No chest wall tenderness with a left upper chest AICD subcutaneously noted ABDOMEN: Soft and non-tender, without guarding or rebound. SKIN: Acyanotic, warm, dry, without rashes EXTREMITIES: Without swelling, tenderness or deformity NEUROLOGICAL: No focal deficits. No aphasia. No facial droop or slurred speech. EK bpm atrially paced rhythm without PVC noted. Inferior and lateral T wave inversions noted with left bundle branch block. Compared to previous available from December 26 of this year now with inferior and V5 T wave inversion. CONTINUOUS CARDIAC MONITORING: was ordered and showed a heart rate of 60s bpm in atrially paced rhythm Patient's laboratory studies and imaging reviewed. Differential includes Premature contractions, electrolyte abnormality, cardiac dysrhythmia, thyroid dysfunction, pulmonary embolism, infection, gastrointestinal, as well as other pathologies. 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 Patient without significant episode of ventricular tachycardia arrhythmia here. Patient denies significant chest pain or back pain at this time. Patient is on warfarin but has intermittently been coming off for various procedures related to a colon/rectal mass has been biopsied and beginning work-up of. Initially blood pressure was somewhat elevated and given some nitroglycerin; after the appropriate sized BP cuff was placed blood pressures were appropriate with mild elevation. He has been on amiodarone. Electrolytes without severe lab normality noted. Slight AST ALT elevation; no significant abdominal symptoms but somewhat concerning given his history of amiodarone usage. Troponin is elevated but fairly similar to recent values from December and doubt this represents an acute injury at this time or occlusion. EKG appears similar to previous from December. Pacemaker interrogation for official report was ordered. Discussed with cardiology Dr. Jaffe. Patient is feeling near back to baseline. Discussed with him possible further observation here at the hospital and cardiology wishes to pursue possible AICD setting changes. No acute medication changes suggested at this point. DIAGNOSIS: Ventricular tachycardia, dizziness, chest pain, hypertension DISPOSITION: Hospitalist will evaluate Patient was agreeable with this plan. Past Med/Surg History Medical History (Updated 10/20/21 @ 19:03 by Monserrat Tim PA-C) Afib Maintained on low dose Amiodarone CAD (coronary artery disease) Non-obstructive per 2012 cath Cardiomyopathy Mixed ischemic and nonischemic CM - EF <20%- complicated by VT. ICD placed 2013 No VT episodes since 10/2020 per cardio records Current EF 20-25% F/U [facility] CLEO CHF (congestive heart failure) hx/no recent issues Chronic back pain CKD (chronic kidney disease) stage 3, GFR 30-59 ml/min Depression Elevated LFTs Gout History of kidney stones History of ventricular tachycardia Hypertension Hypothyroidism LBBB (left bundle branch block) Incomplete per records Left ventricular aneurysm Dx'ed around 2011- on Coumadin- cardio monitoring Moderate in size and noted to apical and inferior area. Hx of LV apical thrombus Myocardial Infarction 15+ years ago- medically managed On anticoagulant therapy WARFARIN Paroxysmal A-fib Pneumonia HX-2000 Presence of combination internal cardiac defibrillator (ICD) and pacemaker Implanted 2013 (follows with cardiology/Dr. Jaffe/[facility] GALLO) Sleep apnea CPAP SOB (shortness of breath) on exertion ON OCC Temporomandibular joint disorder LEFT SIDE PAIN NO LOCKING Surgical History H/O arthroscopic knee surgery multiple on bilateral knees H/O neck surgery History of cardiac cath 2011= NO STENTS History of colonoscopy (~09/15/21) History of cystoscopy History of esophagogastroduodenoscopy (EGD) History of implantable cardioverter-defibrillator (ICD) placement History of laminectomy L4-L5 History of lithotripsy History of lumbar surgery 09/17/19 Grade 1 view Mac 3, magnet placed on L chest wall during procedure History of tonsillectomy Status post uvulopalatopharyngoplasty Family History Father FHx: lung cancer Social History Smoking Status: Former smoker Second Hand Exposure: No; Hx Alcohol Use: No Hx Substance Use: No Preferred Language: Setswana Communication Ability: Effective Visual Impairment: Limited Oncology Admin Required: No Beliefs That Will Affect Care: None Current Living Situation: Alone Current Living Situation Comment: [facility]UGHTER [facility]IV[facility] current occupational status: disabled Feels Safe at Home: Yes Assistive Devices: CPAP and Glasses Allergies Allergies Allergy/AdvReac Type Severity Reaction Status Date / Time No Known Allergies Allergy Verified 10/19/21 08:51 Home Meds Home Medications Medication Instructions Recorded Confirmed allopurinol 300 mg tablet 300 mg PO QDL 09/07/19 10/20/21 amiodarone 200 mg tablet 200 mg PO BID 09/07/19 10/20/21 hydrocodone 5 mg-acetaminophen 325 1 tab PO Q6 PRN 09/07/19 10/20/21 mg tablet levothyroxine 112 mcg tablet 112 mcg PO DAILYBB 01/11/20 10/20/21 nitroglycerin 0.4 mg sublingual 0.4 mg SUBLINGUAL UD PRN 08/13/20 10/20/21 tablet (Nitrostat) allopurinol 100 mg tablet 100 mg PO QDL 10/07/20 10/20/21 warfarin 5 mg tablet 2.5 mg PO PM 10/07/20 10/20/21 hydralazine 25 mg tablet 25 mg PO TID 12/25/20 10/20/21 isosorbide mononitrate 30 mg 30 mg PO QPM 12/25/20 10/20/21 tablet,extended release 24 hr aspirin 81 mg chewable tablet 81 mg PO DAILY 10/20/21 10/20/21 (Aspirin Childrens) ferrous fumarate-vitamin C 66 1 tab PO DAILY 10/20/21 10/20/21 mg-125 mg chewable tablet furosemide 20 mg tablet 10 mg PO DAILY 10/20/21 10/20/21 metoprolol succinate 100 mg 100 mg PO BID 10/20/21 10/20/21 tablet,extended release 24 hr pantoprazole 20 mg tablet,delayed 20 mg PO DAILY 10/20/21 10/20/21 release Results & Data (ED) Vital Signs Vital Signs - 24 hr 10/20/21 15:21 10/20/21 15:30 10/20/21 16:30 Temperature 36.5 C Temperature Source Oral Pulse Rate 78 Pulse Rate [Left Finger] 64 Pulse Rhythm Regular Pulse Rhythm [Left Finger] Regular Pulse Strength Normal Pulse Strength [Left Finger] Normal Respiratory Rate 20 20 Respiratory Effort / Characteristics Non-Labored Spontaneous Non-Labored Spontaneous Respiratory Depth Normal Normal Respiratory Pattern Regular Regular Blood Pressure 161/93 H Blood Pressure [Left Arm] 147/75 H Blood Pressure Mean 115 Blood Pressure Mean [Left Arm] 99 Blood Pressure Position Sitting Blood Pressure Position [Left Arm] Sitting Pulse Oximetry 97 98 Oxygen Delivery Method Room Air Room Air Room Air Sepsis Recent Fever Within 48 Hours No Sepsis New/Unexplained Change in Mental Status No Sepsis Action Taken by Nursing No Action Required Laboratory Data Result diagrams: 10/20/21 15:30 10/20/21 15:30 Lab Results 10/20/21 10/20/21 10/20/21 Range/Units 15:30 15:30 15:30 WBC 6.26 (4.8-10.8) K/uL RBC 4.78 (4.7-6.1) M/uL Hgb 13.7 L (14.0-18.0) g/dL Hct 42.5 (42-52) % MCV 88.9 (80-100) fL MCH 28.7 (25-34) pg MCHC 32.2 (32-36) g/dL RDW Std Deviation 53.5 H (36.4-46.3) fL RDW Coeff of Chris 16.4 H (11.5-14.5) % Plt Count 190 (130-400) K/uL MPV 10.7 H (7.4-10.4) fL Immature Gran % (Auto) 0.3 % Neut % (Auto) 77.0 % Lymph % (Auto) 12.6 % [place] % (Auto) 7.7 % Eos % (Auto) 2.1 % Baso % (Auto) 0.3 % Neut # (Auto) 4.82 (1.4-6.5) K/uL Lymph # (Auto) 0.79 L (1.2-3.4) K/uL [place] # (Auto) 0.48 (0.11-0.59) K/uL Eos # (Auto) 0.13 (0-0.5) K/uL Baso # (Auto) 0.02 (0-0.2) K/uL Immature Gran # (Auto) 0.02 (0.00-0.02) K/uL PT 11.4 (9.0-12.0) Seconds INR 1.1 (0.9-1.1) APTT 28.7 (21.0-31.0) Seconds PTT Ratio 1.1 Sodium 142 (136-145) mmol/L Potassium 3.6 (3.5-5.1) mmol/L Chloride 112 H (98-107) mmol/L Carbon Dioxide 25 (21-32) mmol/L Anion Gap 6.0 (3-11) BUN 13 (7-18) mg/dl Creatinine 1.33 (0.6-1.4) mg/dl Est Cr Clr Drug Dosing 78.8 ml/min Est GFR ( Amer) 65.9 ml/min Est GFR (Non-Af Amer) 56.9 ml/min BUN/Creatinine Ratio 9.5 L (10-20) Glucose 111 H (70-99) mg/dl Calcium 8.5 (8.5-10.1) mg/dl Magnesium 2.0 (1.8-2.4) mg/dl Total Bilirubin 0.5 (0.2-1) mg/dl AST 113 H (15-37) U/L ALT 101 H (12-78) Alkaline Phosphatase 116 (45-117) U/L Troponin I 0.170 H* (0-0.045) ng/ml Total Protein 7.2 (6.4-8.2) gm/dl Albumin 2.8 L (3.4-5.0) gm/dl Globulin 4.4 H (2.5-4.0) gm/dl Albumin/Globulin Ratio 0.6 L (0.9-2) TSH 4.170 (0.300-4.500) uIu/ml SARS-CoV-2, RNA, NAAT (NEGATIVE) 10/20/21 Range/Units 16:21 WBC (4.8-10.8) K/uL RBC (4.7-6.1) M/uL Hgb (14.0-18.0) g/dL Hct (42-52) % MCV (80-100) fL MCH (25-34) pg MCHC (32-36) g/dL RDW Std Deviation (36.4-46.3) fL RDW Coeff of Chris (11.5-14.5) % Plt Count (130-400) K/uL MPV (7.4-10.4) fL Immature Gran % (Auto) % Neut % (Auto) % Lymph % (Auto) % [place] % (Auto) % Eos % (Auto) % Baso % (Auto) % Neut # (Auto) (1.4-6.5) K/uL Lymph # (Auto) (1.2-3.4) K/uL [place] # (Auto) (0.11-0.59) K/uL Eos # (Auto) (0-0.5) K/uL Baso # (Auto) (0-0.2) K/uL Immature Gran # (Auto) (0.00-0.02) K/uL PT (9.0-12.0) Seconds INR (0.9-1.1) APTT (21.0-31.0) Seconds PTT Ratio Sodium (136-145) mmol/L Potassium (3.5-5.1) mmol/L Chloride (98-107) mmol/L Carbon Dioxide (21-32) mmol/L Anion Gap (3-11) BUN (7-18) mg/dl Creatinine (0.6-1.4) mg/dl Est Cr Clr Drug Dosing ml/min Est GFR ( Amer) ml/min Est GFR (Non-Af Amer) ml/min BUN/Creatinine Ratio (10-20) Glucose (70-99) mg/dl Calcium (8.5-10.1) mg/dl Magnesium (1.8-2.4) mg/dl Total Bilirubin (0.2-1) mg/dl AST (15-37) U/L ALT (12-78) Alkaline Phosphatase (45-117) U/L Troponin I (0-0.045) ng/ml Total Protein (6.4-8.2) gm/dl Albumin (3.4-5.0) gm/dl Globulin (2.5-4.0) gm/dl Albumin/Globulin Ratio (0.9-2) TSH (0.300-4.500) uIu/ml SARS-CoV-2, RNA, NAAT NEGATIVE (NEGATIVE) Administered Medications Discontinued Medications Nitroglycerin (Nitroglycerin Sl 0.4 Mg/Tab Tab) 0.4 mg SL NOW STA Stop: 10/20/21 15:38 Last Admin: 10/20/21 15:43 Dose: 0.4 mg Documented by: [id number] Nitroglycerin (Nitroglycerin Sl 0.4 Mg/Tab Tab) Confirm Administered Dose 0.4 mg .ROUTE .STK-MED ONE Stop: 10/20/21 15:40 Last Admin: 10/20/21 15:43 Dose: Not Given Documented by: [id number] Imaging Data Radiologist's Impression: Chest X-Ray 10/20/21 15:37 XR chest 1V portable HISTORY: palpitations, dizzy COMPARISON: Chest 12/25/2020. FINDINGS: There are low lung volumes with elevation of the right hemidiaphragm. This remains unchanged. No pleural effusions. No pneumothorax. The left-sided pacemaker/diffuse bladder. The heart remains enlarged. There is mild central pulmonary vascular congestion without overt edema. No new focal lung consolidati ons to suggest pneumonia. IMPRESSION: Cardiomegaly with mild central pulmonary vascular congestion without overt edema. This has slightly progressed. ACT 112: Negative or not required by law. Electronically signed by: Galen Beaver M.D. 10/20/2021 3:58 PM Discharge Plan Visit Data Chief Complaint: Cardiac Assessment Stated Complaint: AFIB ED Provider: Taye Ramirez Discharge Problem: Ventricular tachycardia (paroxysmal), HTN (hypertension), Chest pain, Dizziness Patient Disposition: Being Evaluated by Hospitalist Forms Stand Alone Forms: [facility] Prescriptions Prescriptions: No Action amiodarone 200 mg Tablet 200 mg PO BID RF: 0 hydrocodone-acetaminophen 5-325 mg Tablet 1 tab PO Q6 PRN (Reason: Pain) RF: 0 allopurinol 300 mg Tablet 300 mg PO QDL RF: 0 allopurinol 100 mg tablet 100 mg PO QDL RF: 0 warfarin 5 mg tablet 2.5 mg PO PM RF: 0 isosorbide mononitrate 30 mg Tablet Extended Release 24 Hr 30 mg PO QPM RF: 0 hydralazine 25 mg Tablet 25 mg PO TID RF: 0 levothyroxine 112 mcg tablet 112 mcg PO DAILYBB RF: 0 nitroglycerin [Nitrostat] 0.4 mg Tablet, Sublingual 0.4 mg sublingual UD PRN (Reason: Chest Pain) RF: 0 pantoprazole 20 mg tablet,delayed release (DR/EC) 20 mg PO DAILY RF: 0 furosemide 20 mg tablet 10 mg PO DAILY RF: 0 aspirin [Aspirin Childrens] 81 mg Tablet,Chewable 81 mg PO DAILY RF: 0 Vitron-C 66-125 mg Tablet,Chewable 1 tab PO DAILY RF: 0 metoprolol succinate 100 mg Tablet Extended Release 24 Hr 100 mg PO BID RF: 0 Referrals Referrals: Radha Rodriguez MD [Primary Care Provider] -
--- NOTE | 2021-10-20 17:58 | History & Physical Report ---
Date of Service October 20, 2021 Assessment & Plan (1) Non-sustained ventricular tachycardia: (2) Ischemic cardiomyopathy with implantable cardioverter-defibrillator (ICD): (3) CAD (coronary artery disease): (4) History of ventricular tachycardia: Plan: Elevated troponin Patient is 61 y/o M with PMH mixed ischemic and nonischemic cardiomyopathy, v- tach, s/p ICD, CAD, h/o left ventricular apical thrombus, paroxysmal atrial fibrillation, HTN, dyslipidemia, CKD III, MARIANNA, hypothyroidism, anxiety, elevated LFT's, newly diagnosed colon CA presented to ER with c/o dizziness and palpitations today. Outpatient ICD interrogation revealed episode of v-tach ICD did not fire. Patient now asymptomatic. Today in ER afebrile, vitals stable, K: 3.6, magnesium: 2.0, troponin: 0.017 (baseline 0.16). Paced rhythm, EKG, paced rhythm, t wave inversions inferior leads Past echo in 2019 with EF<20% ICD interrogated in ER Continue aspirin, amiodarone, metoprolol succinate, isosorbide, lasix Patient appears euvolemic Echo Trend troponin Cardiology consult. ER spoke to Dr Jaffe who recommended admission and no medication changes at this time. Plan will be for ICD to be reprogrammed tomorrow CBC, BMP in am (5) Paroxysmal A-fib: Plan: Continue metoprolol, amiodarone Coumadin had been held 3 days prior to endoscopic ultrasound on 10/19/21 , resumed Coumadin 10/19/21 INR: 1.1 Will give dose 10mg Coumadin tonight INR in am (6) Hypertension: Plan: Continue hydralazine, metoprolol succinate (7) CKD (chronic kidney disease) stage 3, GFR 30-59 ml/min: Plan: Cr: 1.3 (baseline 1.4-1.5) Monitor LFTs (8) Elevated LFTs: Plan: AST: 113 (125 in 09/2021), ALT: 101 (111 in 09/2021), Alk Phos: 116 (was 138) Following with GI Had liver biopsy 10/03/21 with results of steatohepatitis Amiodarone 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 [place] [facility] [place] bleeding DVT Prophylaxis On Coumadin however subtherapeutic, SQ Heparin until INR therapeutic Full Code as per discussion with pt Follows with Dr Rodriguez for routine care Pt was seen and care coordinated with Dr Phillips. See addendum History of Present Illness Chief Complaint: Dizziness Primary Care Provider: Radha Rodriguez MD Patient is 61 y/o M with PMH mixed ischemic and nonischemic cardiomyopathy, v- tach, s/p ICD, CAD, h/o left ventricular apical thrombus, paroxysmal atrial fibrillation, HTN, dyslipidemia, CKD III, MARIANNA, hypothyroidism, anxiety, elevated LFT's, newly diagnosed colon CA presented to ER with c/o dizziness today. Patient states was standing in kitchen today when had sudden onset of palpitations followed by dizziness. These symptoms were similar to in past when his ICD fired. Reports chest pressure lasted approximately 30 seconds and resolved. He went to lay down but palpitations continued. ICD did not fire today. He called cardiology clinic and was able to transmit ICD and was told had episode of v-tach and to report to ER. States that symptoms completely resolved and now feels back to baseline. Denies fever/chills, diaphoresis, N/V/D/C, HOLLAND, syncope, vision changes, neck pain, SOB, orthopnea, cough, sore throat, choking, otalgia, rhinorrhea, abdominal pain, paresthesias, weakness, extremity weakness, extremity edema, rashes, urinary symptoms. Today in ER afebrile, vitals stable, K: 3.6, magnesium: 2.0, troponin: 0.017 (baseline 0.16). Being admitted for further observation Allergies Allergy/AdvReac Type Severity Reaction Status Date / Time No Known Allergies Allergy Verified 10/19/21 08:51 Home Medications Medication Instructions Recorded Confirmed Type allopurinol 300 mg tablet 300 mg PO QDL 09/07/19 10/20/21 History amiodarone 200 mg tablet 200 mg PO BID 09/07/19 10/20/21 History hydrocodone 5 mg-acetaminophen 325 1 tab PO Q6 PRN 09/07/19 10/20/21 History mg tablet levothyroxine 112 mcg tablet 112 mcg PO DAILYBB 01/11/20 10/20/21 History nitroglycerin 0.4 mg sublingual 0.4 mg SUBLINGUAL UD PRN 08/13/20 10/20/21 History tablet (Nitrostat) allopurinol 100 mg tablet 100 mg PO QDL 10/07/20 10/20/21 History warfarin 5 mg tablet 2.5 mg PO PM 10/07/20 10/20/21 History hydralazine 25 mg tablet 25 mg PO TID 12/25/20 10/20/21 History isosorbide mononitrate 30 mg 30 mg PO QPM 12/25/20 10/20/21 History tablet,extended release 24 hr aspirin 81 mg chewable tablet 81 mg PO DAILY 10/20/21 10/20/21 History (Aspirin Childrens) ferrous fumarate-vitamin C 66 1 tab PO DAILY 10/20/21 10/20/21 History mg-125 mg chewable tablet furosemide 20 mg tablet 10 mg PO DAILY 10/20/21 10/20/21 History metoprolol succinate 100 mg 100 mg PO BID 10/20/21 10/20/21 History tablet,extended release 24 hr pantoprazole 20 mg tablet,delayed 20 mg PO DAILY 10/20/21 10/20/21 History release Past Med/Surg History Medical History (Updated 10/20/21 @ 19:03 by Monserrat Tim PA-C) Afib Maintained on low dose Amiodarone CAD (coronary artery disease) Non-obstructive per 2011 cath Cardiomyopathy Mixed ischemic and nonischemic CM - EF <20%- complicated by VT. ICD placed 2013 No VT episodes since 10/2020 per cardio records Current EF 20-25% F/U RADHA GALLO CHF (congestive heart failure) hx/no recent issues Chronic back pain CKD (chronic kidney disease) stage 3, GFR 30-59 ml/min Depression Elevated LFTs Gout History of kidney stones History of ventricular tachycardia Hypertension Hypothyroidism LBBB (left bundle branch block) Incomplete per records Left ventricular aneurysm Dx'ed around 2011- on Coumadin- cardio monitoring Moderate in size and noted to apical and inferior area. Hx of LV apical thrombus Myocardial Infarction 15+ years ago- medically managed On anticoagulant therapy WARFARIN Paroxysmal A-fib Pneumonia HX-2000 Presence of combination internal cardiac defibrillator (ICD) and pacemaker Implanted 2013 (follows with cardiology/Dr. Jaffe/RADHA GALLO) Sleep apnea CPAP SOB (shortness of breath) on exertion ON OCC Temporomandibular joint disorder LEFT SIDE PAIN NO LOCKING Surgical History H/O arthroscopic knee surgery multiple on bilateral knees H/O neck surgery History of cardiac cath 2012= NO STENTS History of colonoscopy (~09/15/21) History of cystoscopy History of esophagogastroduodenoscopy (EGD) History of implantable cardioverter-defibrillator (ICD) placement History of laminectomy L4-L5 History of lithotripsy History of lumbar surgery 09/17/19 Grade 1 view Mac 3, magnet placed on L chest wall during procedure History of tonsillectomy Status post uvulopalatopharyngoplasty Family History Father FHx: lung cancer Social History Smoking Status: Never smoker Second Hand Exposure: No; Hx Alcohol Use: No Hx Substance Use: No Preferred Language: Frisian Communication Ability: Effective Visual Impairment: Limited Child Welfare Manager Required: No Beliefs That Will Affect Care: None Current Living Situation: Alone Current Living Situation Comment: dtr lives next door current occupational status: disabled Other Information That Helps Us Care for You: No Feels Safe at Home: Yes Safety Concerns: Feels Safe At This Time Assistive Devices: None Review of Systems Review of Systems: All systems reviewed & are unremarkable except as noted in HPI & below Physical Exam Physical Exam: General: no distress, obese Head: normocephalic, atraumatic Eyes: PERRL, EOM's intact, conjunctiva non-injected, anicteric ENT: normal inspection external ears, nose, mucous membranes moist Neck: supple, trachea midline Lungs: clear, no respiratory distress, no wheezing/rhonchi/rales CV: RRR, no pretibial edema, chest wall with ICD in place Abd: normal BS, soft, non-tender Ext: no cyanosis, no calf tenderness Neuro: A&O x 3, no focal deficits noted, normal affect Skin: warm, dry Results & Data Results & Data ([facility]) Vital Signs (Past 12 Hours) Vital Signs Temp Pulse Pulse Resp BP BP Pulse Ox 12/17/21 16:30 64 20 147/75 H 98 10/20/21 15:21 36.5 C 78 20 161/93 H 97 Laboratory Results Short CBC 10/20/21 Range/Units 15:30 WBC 6.26 (4.8-10.8) K/uL Hgb 13.7 L (14.0-18.0) g/dL Hct 42.5 (42-52) % Plt Count 190 (130-400) K/uL BMP 10/20/21 15:30 Sodium 142 Potassium 3.6 Chloride 112 H Carbon Dioxide 25 BUN 13 Creatinine 1.33 Glucose 111 H Calcium 8.5 Cardiac Enzymes 10/20/21 Range/Units 15:30 Troponin I 0.170 H* (0-0.045) ng/ml Liver Function 10/20/21 Range/Units 15:30 Total Bilirubin 0.5 (0.2-1) mg/dl AST 113 H (15-37) U/L ALT 101 H (12-78) Alkaline Phosphatase 116 (45-117) U/L Albumin 2.8 L (3.4-5.0) gm/dl Diagnostic Findings Chest X-Ray 10/20/21 15:37 XR chest 1V portable HISTORY: palpitations, dizzy COMPARISON: Chest 12/25/2020. FINDINGS: There are low lung volumes with elevation of the right hemidiaphragm. This remains unchanged. No pleural effusions. No pneumothorax. The left-sided pacemaker/diffuse bladder. The heart remains enlarged. There is mild central pulmonary vascular congestion without overt edema. No new focal lung consolidations to suggest pneumonia. IMPRESSION: Cardiomegaly with mild central pulmonary vascular congestion without overt edema. This has slightly progressed. ACT 112: Negative or not required by law. Electronically signed by: Galen Beaver M.D. 10/20/2021 3:58 PM ECG Rate (beats per minute): 73 Findings: + T-wave inversion (Inferior) and + paced rhythm Supervising Physician Co-Signing Physician Notes I saw this patient with the physician registered sales assistant, I participated in the history, physical, review of systems, and physical exam. I reviewed the medications with the patient and the physician registered sales assistant and helped reconcile the medications. I helped take a detailed family and social history as well. I formulated the assessment and plan personally with the physician registered sales assistant and went over it with the patient. Physical Exam Gen-AAO x 3, NAD, Afebrile, Pleasant,obese Head-NCAT, EOMI, PERRLA, Anicteric Sclera, No Posterior Pharyngeal Erythema Neck-Supple, No JVD, No Thyromegaly, No Masses, No LAD, No Bruits Lungs-Clear to Auscultation Bilaterally, No Rales, No Rhonchi, No Wheezing, No Crepitus Chest-No S4, +S1, +S2, No S3, No Murmurs, No Rubs, No Gallops, No Ectopy Abdomen-Soft, Bowel Sounds Present, Non Tender, Non Distended, No Hepatomegaly, No Splenomegaly, No Palpable Masses, No Rebound, No Rigidity, No Guarding Musculoskeletal-Full Range of Motion Bilaterally, No CVAT Extremities-No Cyanosis, No Clubbing, No Edema Nuero-Cranial Nerves II-XII grossly intact, Motor WNL, DTRs WNL, Strength WNL, Non Focal Psych-Normal Mood (1) Hypothyroidism Hypothyroidism type: unspecified Qualified Code(s): E03.9 - Hypothyroidism, unspecified (2) Hypertension Hypertension type: essential hypertension Qualified Code(s): I10 - Essential (primary) hypertension
[2021-10-20] MEDS ORDERED: WARFARIN SOD 1 MG TAB PO ONE (18:56)
[2021-10-20] MEDS ORDERED: WARFARIN SOD 10 MG TAB PO ONE (19:15)
[2021-10-20] MEDS ORDERED: NITROGLYCERIN SL 0.4 MG/TAB TAB SL PRN (21:00)
[2021-10-20] MEDS ORDERED: ACETAMINOPHEN 325 MG TAB PO PRN (21:00)
[2021-10-20] MEDS ORDERED: HYDROCODONE/ACETAMOPHEN 5/325MG TAB PO PRN (21:00)
[2021-10-20] MEDS ORDERED: ISOSORBIDE MONO EXTENDED REL 30 MG TABCR PO SCH (21:00)
[2021-10-20] MEDS ORDERED: AMIODARONE 200 MG TAB PO SCH (21:30)
[2021-10-20] MEDS: hydrALAZINE HCL 25 MG TAB PO SCH (22:33)
[2021-10-20] MEDS: METOPROLOL SUCC 50MG EXT REL TAB PO SCH (22:33)
[2021-10-20] MEDS: HEPARIN SOD 5,000 UNIT/0.5 ML VIAL SQ SCH (22:34)
--- NOTE | 2021-10-20 22:57 | Electrocardiogram Report ---
Test Reason : Blood Pressure : / mmHG Vent. Rate : 073 BPM Atrial Rate : 073 BPM P-R Int : 314 ms QRS Dur : 112 ms QT Int : 430 ms P-R-T Axes : 082 038 098 degrees QTc Int : 473 ms Atrial-paced rhythm with prolonged AV conduction Incomplete left bundle block Abnormal ECG When compared with ECG of 26-DEC-2020 07:02, Nonspecific T wave abnormality now evident in Inferior leads T wave inversion more evident in Lateral leads Confirmed by Ludwig Ortiz ([id number]) on 10/20/2021 10:56:35 PM Referred By: Confirmed By:Ludwig Ortiz
[2021-10-20] MEDS: AMIODARONE 200 MG TAB PO SCH (23:49)
[2021-10-21] MEDS ORDERED: ASPIRIN 81 MG ECTAB PO SCH
[2021-10-21] MEDS ORDERED: LEVOTHYROXINE SODIUM 112 MCG TABLET PO SCH (06:30)
[2021-10-21 08:16] LABS: Hematocrit (blood only) 41.5 % (42-52); Hemoglobin 13.5 g/dL (14.0-18.0); Mean Corpuscular Hemoglobin 29.3 pg (25-34); Mean Corpuscular Hgb Conc 32.5 g/dL (32-36); Mean Platelet Volume 10.6 fL (7.4-10.4); Platelet Count 177 K/uL (130-400); RDW Coefficient of Variation 16.7 % (11.5-14.5); RDW Standard Deviation 54.8 fL (36.4-46.3); Red Blood Count 4.61 M/uL (4.7-6.1)
[2021-10-21 08:26] LABS: INR 1.2 (0.9-1.1); Prothrombin Time 11.9 Seconds (9.0-12.0)
[2021-10-21] MEDS: HEPARIN SOD 5,000 UNIT/0.5 ML VIAL SQ SCH ×2 (08:49→14:03)
[2021-10-21] MEDS: hydrALAZINE HCL 25 MG TAB PO SCH (08:51)
[2021-10-21 08:52] LABS: Calcium 8.5 mg/dl (8.5-10.1); Creatinine Clr Calc Pharmacy 75.8 ml/min; Est GFR (African American) 65.9 ml/min; Est GFR (Non-African American) 56.9 ml/min; Potassium 3.5 mmol/L (3.5-5.1)
[2021-10-21] MEDS: METOPROLOL SUCC 50MG EXT REL TAB PO SCH (08:52)
[2021-10-21] MEDS ORDERED: PANTOprazole 40 MG TAB PO SCH (09:00)
[2021-10-21] MEDS ORDERED: FUROSEMIDE 20 MG TAB PO SCH (09:00)
[2021-10-21] MEDS ORDERED: NON-FORMULARY MEDICATION (Ferrous Fumarate-Vitamin C 66-125 mg Tablet,Chewable) PO SCH (09:00)
[2021-10-21] MEDS ORDERED: FERROUS SULFATE 325 MG TAB PO SCH (09:00)
[2021-10-21] MEDS ORDERED: ASCORBIC ACID 500 MG TAB PO SCH (09:00)
[2021-10-21] MEDS ORDERED: POTASSIUM CHLORIDE CRTAB 20 MEQ TABCR PO ONE (09:48)
[2021-10-21] MEDS: AMIODARONE 200 MG TAB PO SCH (11:06)
--- NOTE | 2021-10-21 11:19 | Cardiology Consultation ---
Date of Consultation October 21, 2021 Assessment & Plan (1) Ventricular tachycardia (paroxysmal): (2) Ischemic cardiomyopathy with implantable cardioverter-defibrillator (ICD): (3) CKD (chronic kidney disease) stage 3, GFR 30-59 ml/min: (4) Rectal cancer: Patient referred and admitted after an episode of sustained ventricular tachycardia self terminating but symptomatic with rates of arrhythmia just below detection rate on pacer defibrillator patient with prior episodes of paroxysmal ventricular tachycardia but generally well controlled possibly incited by recent events Device has been reprogrammed to be more sensitive to arrhythmias We will not increase antiarrhythmic therapy but continue previously ordered medications. Only change will be in addition of potassium chloride 10 mg p.o. daily with potassium slightly low likely due to bowel prep for recent procedures Outpatient follow-up will be arranged. Patient stable for discharge today no signs of acute ischemia or congestive heart failure History of Present Illness Reason for Consultation: Ventricular tachycardia Requesting Physician: Dr. Syed Attending Physician: Judson Syed MD History of Present Illness Patient is a 61-year-old male with complex history and ongoing medical issues as outlined by recent outpatient record 1. 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 EF 25 to 30% 2. NYHA Class III, Stage C chronic systolic congestive heart failure 3. Status post dual-chamber pacemaker-defibrillator implantation April 2014 [employer], Model - Evera XT [id number] 4. History of LV apical thrombus 5. Nonobstructive coronary disease cardiac catheterization last in March 2012. 6. Paroxysmal atrial fibrillation. 7. Symptomatic ventricular tachycardia 8. Moderate mitral and tricuspid regurgitation 9. Chronic obstructive sleep apnea on PAP and oxygen supplementation. 10. Hypertension 11. Dyslipidemia 12. Anxiety 13. Hypothyroidism 14. Chronic kidney disease, stage III 15. Iron deficiency anemia 16. Kidney stones status post lithotripsy 17. Vitamin-D deficiency 18. Gout 19. Cervical disc disease status post surgery at [facility] around 2001 20. Lumbar disc disease, status post surgery by Dr. Robbins in January 2012, redo surgery by Dr. Zepeda in September 2019 Patient presents now having recently been diagnosed with colon carcinoma and underwent staging endoscopy on 10/19/2021 Yesterday "not feeling well" and subsequently suffered an extended episode of ventricular tachycardia symptomatic with near syncope rates just below detection threshold on pacer defibrillator. Event self terminated but patient was referred to the emergency room for further management after remote interrogation of pacer defibrillator and discussion of patient's symptoms. Patient feels improved this morning no further arrhythmias overnight. No chest pain or shortness of breath. No dizziness or lightheadedness. No irritation at pacer defibrillator site Allergies Allergy/AdvReac Type Severity Reaction Status Date / Time No Known Allergies Allergy Verified 10/19/21 08:51 Home Medications Medication Instructions Recorded Confirmed Type allopurinol 300 mg tablet 300 mg PO QDL 09/07/19 10/20/21 History amiodarone 200 mg tablet 200 mg PO BID 09/07/19 10/20/21 History hydrocodone 5 mg-acetaminophen 325 1 tab PO Q6 PRN 09/07/19 10/20/21 History mg tablet levothyroxine 112 mcg tablet 112 mcg PO DAILYBB 01/11/20 10/20/21 History nitroglycerin 0.4 mg sublingual 0.4 mg SUBLINGUAL UD PRN 08/13/20 10/20/21 History tablet (Nitrostat) allopurinol 100 mg tablet 100 mg PO QDL 10/07/20 10/20/21 History warfarin 5 mg tablet 2.5 mg PO PM 10/07/20 10/20/21 History hydralazine 25 mg tablet 25 mg PO TID 12/25/20 10/20/21 History isosorbide mononitrate 30 mg 30 mg PO QPM 12/25/20 10/20/21 History tablet,extended release 24 hr aspirin 81 mg chewable tablet 81 mg PO DAILY 10/20/21 10/20/21 History (Aspirin Childrens) ferrous fumarate-vitamin C 66 1 tab PO DAILY 10/20/21 10/20/21 History mg-125 mg chewable tablet furosemide 20 mg tablet 10 mg PO DAILY 10/20/21 10/20/21 History metoprolol succinate 100 mg 100 mg PO BID 10/20/21 10/20/21 History tablet,extended release 24 hr pantoprazole 20 mg tablet,delayed 20 mg PO DAILY 10/20/21 10/20/21 History release Patient History Medical History Afib Maintained on low dose Amiodarone CAD (coronary artery disease) Non-obstructive per 2012 cath Cardiomyopathy Mixed ischemic and nonischemic CM - EF <20%- complicated by VT. ICD placed 2013 No VT episodes since 10/2020 per cardio records Current EF 20-25% F/U RADHA GALLO CHF (congestive heart failure) hx/no recent issues Chronic back pain CKD (chronic kidney disease) stage 3, GFR 30-59 ml/min Depression Elevated LFTs Gout History of kidney stones History of ventricular tachycardia Hypertension Hypothyroidism LBBB (left bundle branch block) Incomplete per records Left ventricular aneurysm Dx'ed around 2011- on Coumadin- cardio monitoring Moderate in size and noted to apical and inferior area. Hx of LV apical thrombus Myocardial Infarction 15+ years ago- medically managed On anticoagulant therapy WARFARIN Paroxysmal A-fib Pneumonia HX-2000 Presence of combination internal cardiac defibrillator (ICD) and pacemaker Implanted 2013 (follows with cardiology/Dr. Jaffe/RADHA GALLO) Sleep apnea CPAP SOB (shortness of breath) on exertion ON OCC Temporomandibular joint disorder LEFT SIDE PAIN NO LOCKING Surgical History H/O arthroscopic knee surgery multiple on bilateral knees H/O neck surgery History of cardiac cath 2011= NO STENTS History of colonoscopy (~09/15/21) History of cystoscopy History of esophagogastroduodenoscopy (EGD) History of implantable cardioverter-defibrillator (ICD) placement History of laminectomy L4-L5 History of lithotripsy History of lumbar surgery 09/17/19 Grade 1 view Mac 3, magnet placed on L chest wall during procedure History of tonsillectomy Status post uvulopalatopharyngoplasty Family History Father FHx: lung cancer Social History Smoking Status: Never smoker Second Hand Exposure: No; Hx Alcohol Use: No Hx Substance Use: No Preferred Language: Brazilian Communication Ability: Effective Visual Impairment: Limited Coke Still Cleaner Required: No Beliefs That Will Affect Care: None Current Living Situation: Alone Current Living Situation Comment: dtr lives next door current occupational status: disabled Other Information That Helps Us Care for You: No Feels Safe at Home: Yes Safety Concerns: Feels Safe At This Time Assistive Devices: None Review of Systems Review of Systems: All systems reviewed & are unremarkable except as noted in HPI & below Physical Exam Constitutional: WD/WN, vitals as above + obese; no acute distress Eyes: PERRL, conjunctivae normal, anicteric sclerae ENMT: external ear and nose normal, oropharynx normal Neck: trachea midline, no thyromegaly Respiratory: normal respiratory effort, lungs clear to auscultation Cardiovascular: Rate/Rhythm: regular rate and regular rhythm Heart Sounds: normal S1 and normal S2; no gallop and no murmur Palpation: normal PMI Vessels: normal carotid upstroke and radial pulses present; no JVD and no carotid bruit Extremities: no edema Gastrointestinal (Abdomen): normal bowel sounds, soft, nontender, no hepatosplenomegaly Musculoskeletal: no cyanosis or clubbing, extremities motor strength 5/5 Skin: no rashes, warm and dry Neurologic: PERRL, EOMI, accommodation nl, no face palsy, no dysarthria Psychiatric: A+Ox3, euthymic affect Results & Data ([facility]) Vital Signs (Past 12 Hours) Vital Signs Temp Pulse Pulse Resp BP BP Pulse Ox 10/21/21 04:00 36.8 C 68 16 139/81 97 10/21/21 01:07 36.6 C 78 16 165/93 H 92 10/20/21 23:51 62 18 169/88 H 92 Laboratory Results Laboratory Results - last 24 hr 10/20/21 10/20/21 10/20/21 15:30 15:30 15:30 WBC 6.26 RBC 4.78 Hgb 13.7 L Hct 42.5 MCV 88.9 MCH 28.7 MCHC 32.2 RDW Std Deviation 53.5 H RDW Coeff of Chris 16.4 H Plt Count 190 MPV 10.7 H Immature Gran % (Auto) 0.3 Neut % (Auto) 77.0 Lymph % (Auto) 12.6 Luce % (Auto) 7.7 Eos % (Auto) 2.1 Baso % (Auto) 0.3 Neut # (Auto) 4.82 Lymph # (Auto) 0.79 L Luce # (Auto) 0.48 Eos # (Auto) 0.13 Baso # (Auto) 0.02 Immature Gran # (Auto) 0.02 PT 11.4 INR 1.1 APTT 28.7 PTT Ratio 1.1 Sodium 142 Potassium 3.6 Chloride 112 H Carbon Dioxide 25 Anion Gap 6.0 BUN 13 Creatinine 1.33 Est Cr Clr Drug Dosing 78.8 Est GFR ( Amer) 65.9 Est GFR (Non-Af Amer) 56.9 BUN/Creatinine Ratio 9.5 L Glucose 111 H Calcium 8.5 Magnesium 2.0 Total Bilirubin 0.5 AST 113 H ALT 101 H Alkaline Phosphatase 116 Troponin I 0.170 H* Total Protein 7.2 Albumin 2.8 L Globulin 4.4 H Albumin/Globulin Ratio 0.6 L Triglycerides Cholesterol LDL Cholesterol, Calc VLDL Cholesterol, Calc HDL Cholesterol Cholesterol/HDL Ratio TSH 4.170 SARS-CoV-2, RNA, NAAT 10/20/21 10/20/21 10/21/21 16:21 21:19 03:24 WBC RBC Hgb Hct MCV MCH MCHC RDW Std Deviation RDW Coeff of Chris Plt Count MPV Immature Gran % (Auto) Neut % (Auto) Lymph % (Auto) Luce % (Auto) Eos % (Auto) Baso % (Auto) Neut # (Auto) Lymph # (Auto) Luce # (Auto) Eos # (Auto) Baso # (Auto) Immature Gran # (Auto) PT INR APTT PTT Ratio Sodium Potassium Chloride Carbon Dioxide Anion Gap BUN Creatinine Est Cr Clr Drug Dosing Est GFR ( Amer) Est GFR (Non-Af Amer) BUN/Creatinine Ratio Glucose Calcium Magnesium Total Bilirubin AST ALT Alkaline Phosphatase Troponin I 0.159 H* 0.155 H* Total Protein Albumin Globulin Albumin/Globulin Ratio Triglycerides Cholesterol LDL Cholesterol, Calc VLDL Cholesterol, Calc HDL Cholesterol Cholesterol/HDL Ratio TSH SARS-CoV-2, RNA, NAAT NEGATIVE 10/21/21 10/21/21 10/21/21 07:59 07:59 07:59 WBC 6.10 RBC 4.61 L Hgb 13.5 L Hct 41.5 L MCV 90.0 MCH 29.3 MCHC 32.5 RDW Std Deviation 54.8 H RDW Coeff of Chris 16.7 H Plt Count 177 MPV 10.6 H Immature Gran % (Auto) Neut % (Auto) Lymph % (Auto) Luce % (Auto) Eos % (Auto) Baso % (Auto) Neut # (Auto) Lymph # (Auto) Luce # (Auto) Eos # (Auto) Baso # (Auto) Immature Gran # (Auto) PT 11.9 INR 1.2 H APTT PTT Ratio Sodium 143 Potassium 3.5 Chloride 110 H Carbon Dioxide 27 Anion Gap 6.0 BUN 15 Creatinine 1.33 Est Cr Clr Drug Dosing 75.8 Est GFR ( Amer) 65.9 Est GFR (Non-Af Amer) 56.9 BUN/Creatinine Ratio 11.0 Glucose 89 Calcium 8.5 Magnesium Total Bilirubin AST ALT Alkaline Phosphatase Troponin I Total Protein Albumin Globulin Albumin/Globulin Ratio Triglycerides 209 H Cholesterol 181 LDL Cholesterol, Calc 105 VLDL Cholesterol, Calc 42 HDL Cholesterol 34 Cholesterol/HDL Ratio 5 TSH SARS-CoV-2, RNA, NAAT
[2021-10-21] MEDS ORDERED: allopurinoL 100 MG TAB PO SCH (11:30)
[2021-10-21] MEDS ORDERED: allopurinoL 300 MG TAB PO SCH (11:30)
--- NOTE | 2021-10-21 12:34 | Hospitalist Progress Note ---
Date of Service October 21, 2021 Assessment & Plan (1) Non-sustained ventricular tachycardia: (2) Ischemic cardiomyopathy with implantable cardioverter-defibrillator (ICD): (3) CAD (coronary artery disease): (4) History of ventricular tachycardia: Plan: Patient is a 61 yr male with H/O mixed ischemic and nonischemic cardiomyopathy, v-tach, s/p ICD, CAD, h/o left ventricular apical thrombus, paroxysmal atrial fibrillation, HTN, dyslipidemia, CKD III, MARIANNA, hypothyroidism, anxiety, elevated LFT's, newly diagnosed colon CA presented to ER with c/o dizziness and palpitations today. Outpatient ICD interrogation revealed episode of v-tach ICD did not fire. Sustained ventricular tachycardia Spontaneously resolved Chronic troponin elevation in setting to tachycardia/CKD H/O systolic heart failure with EF <20% ECHO: Left ventricle is normal in size. Moderate concentric LVH. Focal akinesis with mild expansion of the mid and apical septum. There is mild diffuse hypokinesis of all other segments. Ejection fraction 25 to 30%. Grade 1 diastolic dysfunction. ---ICD interrogated and reprogrammed as necessary Continue aspirin, amiodarone, metoprolol succinate, isosorbide, lasix Appreciate Cardiology Input Needs follow up with Cardiology upon discharge (5) Paroxysmal A-fib: Plan: Continue metoprolol, amiodarone Coumadin had been held 3 days prior to endoscopic ultrasound on 10/19/21 , resumed Coumadin 10/19/21 Subtherapeutic INR: 1.2 Plan to give coumadin 7.5 mg today Advised to follow up with coumadin clinic on Saturday ( 10/23/21) with PT/INR (6) Hypertension: Plan: Continue hydralazine, metoprolol succinate (7) CKD (chronic kidney disease) stage 3, GFR 30-59 ml/min: Plan: Cr: 1.3 (baseline 1.4-1.5) Monitor LFTs (8) Elevated LFTs: Plan: AST: 113 (125 in 09/2021), ALT: 101 (111 in 09/2021), Alk Phos: 116 (was 138) Following with GI Had liver biopsy 10/03/21 with results of steatohepatitis Amiodarone has been continued by EP imaging aide (9) Sleep apnea: Plan: CPAP HS (10) Hypothyroidism: Plan: TSH: 4.1 Continue levothyroxine (11) Rectal cancer: Plan: Recently diagnosed rectal cancer Had endoscopic ultrasound on 10/19/21. Is following with colorectal surgeon at [facility] Denies rectal bleeding DVT Px Coumadin SQ Heparin until INR therapeutic Code status Full Code Admission and Anticipated Discharge Date Admission Date: October 20, 2021 Subjective Patient is seen and examined at bedside States feeling well today Denies any dizziness, palpitations, chest pain, dyspnea Discussed with cardiology today ICD device was reprogrammed Review of Systems Review of Systems: All systems reviewed & are unremarkable except as noted in Subjective Physical Exam Physical Exam: Physical Exam: Vitals signs as noted above General Appearance:Morbidly Obese, no apparent distress Head: normocephalic, Atraumatic Eyes: normal inspection, EOMI Neck: supple, Trachea midline Respiratory/Chest: Normal breath sounds, CTA, No accessory muscle use Cardiovascular: S1, S2, No murmur Abdomen/GI:Soft, Non tender, Bowel sounds present Extremities/Musculoskeletal:normal inspection, no edema Neurologic/Psych:AAOX3, grossly no focal neurological deficits Skin: normal color, warm Results & Data Results & Data ([facility]) Vital Signs (Past 12 Hours) Vital Signs Temp Pulse Resp BP Pulse Ox 10/21/21 04:00 36.8 C 68 16 139/81 97 10/21/21 01:07 36.6 C 78 16 165/93 H 92 Laboratory Results Short CBC 10/20/21 10/21/21 Range/Units 15:30 07:59 WBC 6.26 6.10 (4.8-10.8) K/uL Hgb 13.7 L 13.5 L (14.0-18.0) g/dL Hct 42.5 41.5 L (42-52) % Plt Count 190 177 (130-400) K/uL BMP 10/20/21 10/21/21 15:30 07:59 Sodium 142 143 Potassium 3.6 3.5 Chloride 112 H 110 H Carbon Dioxide 25 27 BUN 13 15 Creatinine 1.33 1.33 Glucose 111 H 89 Calcium 8.5 8.5 Cardiac Enzymes 10/20/21 10/20/21 10/21/21 Range/Units 15:30 21:19 03:24 Troponin I 0.170 H* 0.159 H* 0.155 H* (0-0.045) ng/ml Liver Function 12/17/21 Range/Units 15:30 Total Bilirubin 0.5 (0.2-1) mg/dl AST 113 H (15-37) U/L ALT 101 H (12-78) Alkaline Phosphatase 116 (45-117) U/L Albumin 2.8 L (3.4-5.0) gm/dl (1) Hypertension Hypertension type: essential hypertension Qualified Code(s): I10 - Essential (primary) hypertension (2) Hypothyroidism Hypothyroidism type: unspecified Qualified Code(s): E03.9 - Hypothyroidism, unspecified
--- NOTE | 2021-10-21 13:03 | Discharge Summary ---
Date of Service October 21, 2021 Admission HPI Per Admitting Provider Patient is 61 y/o M with PMH mixed ischemic and nonischemic cardiomyopathy, v- tach, s/p ICD, CAD, h/o left ventricular apical thrombus, paroxysmal atrial fibrillation, HTN, dyslipidemia, CKD III, MARIANNA, hypothyroidism, anxiety, elevated LFT's, newly diagnosed colon CA presented to ER with c/o dizziness today. Patient states was standing in kitchen today when had sudden onset of palpitations followed by dizziness. These symptoms were similar to in past when his ICD fired. Reports chest pressure lasted approximately 30 seconds and resolved. He went to lay down but palpitations continued. ICD did not fire today. He called cardiology clinic and was able to transmit ICD and was told had episode of v-tach and to report to ER. States that symptoms completely resolved and now feels back to baseline. Denies fever/chills, diaphoresis, N/V/D/C, HOLLAND, syncope, vision changes, neck pain, SOB, orthopnea, cough, sore throat, choking, otalgia, rhinorrhea, abdominal pain, paresthesias, weakness, extremity weakness, extremity edema, rashes, urinary symptoms. Today in ER afebrile, vitals stable, K: 3.6, magnesium: 2.0, troponin: 0.017 (baseline 0.16). Being admitted for further observation Admission Exam Per Admitting Provider Physical Exam Physical Exam: General: no distress, obese Head: normocephalic, atraumatic Eyes: PERRL, EOM's intact, conjunctiva non-injected, anicteric ENT: normal inspection external ears, nose, mucous membranes moist Neck: supple, trachea midline Lungs: clear, no respiratory distress, no wheezing/rhonchi/rales CV: RRR, no pretibial edema, chest wall with ICD in place Abd: normal BS, soft, non-tender Ext: no cyanosis, no calf tenderness Neuro: A&O x 3, no focal deficits noted, normal affect Skin: warm, dry Principal Diagnosis Sustained ventricular tachycardia Paroxysmalatrial fibrillation Subtherapeutic INR Discharge Data Allergies Allergy/AdvReac Type Severity Reaction Status Date / Time No Known Allergies Allergy Verified 10/19/21 08:51 Consultations 10/20/21 17:55 ED Decision to Admit Stat 10/20/21 18:05 Consult Cardiology Routine Hospital Course (1) Non-sustained ventricular tachycardia: (2) Ischemic cardiomyopathy with implantable cardioverter-defibrillator (ICD): (3) CAD (coronary artery disease): (4) History of ventricular tachycardia: Patient is a 61 yr male with H/O mixed ischemic and nonischemic cardiomyopathy, v-tach, s/p ICD, CAD, h/o left ventricular apical thrombus, paroxysmal atrial fibrillation, HTN, dyslipidemia, CKD III, MARIANNA, hypothyroidism, anxiety, elevated LFT's, newly diagnosed colon CA presented to ER with c/o dizziness and palpitati ons today. Outpatient ICD interrogation revealed episode of v-tach ICD did not fire. Sustained ventricular tachycardia Spontaneously resolved Chronic troponin elevation in setting to tachycardia/CKD H/O systolic heart failure with EF <20% ECHO: Left ventricle is normal in size. Moderate concentric LVH. Focal akinesis with mild expansion of the mid and apical septum. There is mild diffuse hypokinesis of all other segments. Ejection fraction 25 to 30%. Grade 1 diastolic dysfunction. ---ICD interrogated and reprogrammed as necessary Continue aspirin, amiodarone, metoprolol succinate, isosorbide, lasix Appreciate Cardiology Input Needs follow up with Cardiology upon discharge (5) Paroxysmal A-fib: Continue metoprolol, amiodarone Coumadin had been held 3 days prior to endoscopic ultrasound on 10/19/21 , resumed Coumadin 10/19/21 Subtherapeutic INR: 1.2 Plan to give coumadin 7.5 mg today Advised to follow up with coumadin clinic on Saturday ( 10/23/21) with PT/INR (6) Hypertension: Continue hydralazine, metoprolol succinate (7) CKD (chronic kidney disease) stage 3, GFR 30-59 ml/min: Cr: 1.3 (baseline 1.4-1.5) Monitor LFTs (8) Elevated LFTs: AST: 113 (125 in 09/2021), ALT: 101 (111 in 09/2021), Alk Phos: 116 (was 138) Following with GI Had liver biopsy 10/03/21 with results of steatohepatitis Amiodarone has been continued by EP rig supervisor (9) Sleep apnea: CPAP HS (10) Hypothyroidism: TSH: 4.1 Continue levothyroxine (11) Rectal cancer: Recently diagnosed rectal cancer Had endoscopic ultrasound on 10/19/21. Is following with colorectal surgeon at [facility] Denies rectal bleeding DVT Px Coumadin SQ Heparin until INR therapeutic Code status Full Code Total Time Total Time Spent Total Time Spent (In Minutes): 38 minutes Discharge Plan Discharge Items Patient Disposition: Home - Self-Care Reason For Visit: [place] Discharge Diagnosis: Sustained ventricular tachycardia Paroxysmalatrial fibrillation Subtherapeutic INR Activity: Per Instructions section Exercise/Sports: Wait until after follow-up appointment Non-emergency contact: Primary Care Provider and Coil Maker Call non-emergency contact if: you have any medication questions, your symptoms worsen, your pain is concerning for you and you have a fever Follow-up/Referrals: Titi Rodriguez MD [Primary Care Provider] - Diet: Heart Healthy Addtl Attending Provider Instructions: Follow-up with your primary care physician in 1 week Follow-up with your rig supervisor Dr. Jaffe as advised Follow-up with Coumadin clinic for monitoring your PT/INR and adjusting your Coumadin dosing on 10/23/21 --- Your target PT/INR is 2.0-3.0 Your PT/INR is 1.2 today (10/21/21) Take Coumadin (Warfarin) 7.5mg today (10/21/21) Take Coumadin (Warfarin) 5mg tomorrow (10/22/21) Get Blood test PT/INT on Saturday (10/23/21) and follow-up with Coumadin clinic for further adjustment of your Coumadin dosing Seek immediate medical attention if your symptoms reoccur or worsen Please take all medications as instructed on discharge list below. Please call if you have any questions or problems. You can reach a [facility] hospitalist on duty at [facility] 24 hours a day by calling [phone] Pending Studies at Discharge: No Stand-Alone Forms: [facility], Smoking Cessation Medications and DC Order Prescriptions: New ferrous sulfate 325 mg (65 mg iron) Tablet,Delayed Release (Dr/Ec) 325 mg PO DAILY Qty: 30 RF: 0 potassium chloride 10 mEq Tablet,Er Particles/Crystals 10 meq PO DAILY Qty: 30 RF: 0 Continued amiodarone 200 mg Tablet 200 mg PO BID RF: 0 hydrocodone-acetaminophen 5-325 mg Tablet 1 tab PO Q6 PRN (Reason: Pain) RF: 0 allopurinol 300 mg Tablet 300 mg PO QDL RF: 0 allopurinol 100 mg tablet 100 mg PO QDL RF: 0 warfarin 5 mg tablet 2.5 mg PO PM RF: 0 isosorbide mononitrate 30 mg Tablet Extended Release 24 Hr 30 mg PO QPM RF: 0 hydralazine 25 mg Tablet 25 mg PO TID RF: 0 levothyroxine 112 mcg tablet 112 mcg PO DAILYBB RF: 0 nitroglycerin [Nitrostat] 0.4 mg Tablet, Sublingual 0.4 mg sublingual UD PRN (Reason: Chest Pain) RF: 0 pantoprazole 20 mg tablet,delayed release (DR/EC) 20 mg PO DAILY RF: 0 furosemide 20 mg tablet 10 mg PO DAILY RF: 0 aspirin [Aspirin Childrens] 81 mg Tablet,Chewable 81 mg PO DAILY RF: 0 Vitron-C 66-125 mg Tablet,Chewable 1 tab PO DAILY RF: 0 metoprolol succinate 100 mg Tablet Extended Release 24 Hr 100 mg PO BID RF: 0 Discharge Orders: Discharge Order (Routine); Ordered 10/21/21 Ordered By: Judson Syed Admission Data Admit Date/Time: 10/20/21 18:03 Attending Provider: Judson Syed Admit Provider: Jono Phillips Primary Care Provider: Titi Rodriguez Other Providers: Lucius Jaffe ; Jono Phillips
[2021-10-21] MEDS ORDERED: WARFARIN SOD 2.5 MG TAB PO SCH (16:00)
[2021-10-22] MEDS ORDERED: POTASSIUM CHLORIDE 10 MEQ TABCR PO SCH (09:00)
== END 2021-10-21 14:14 | disposition home or self-care (01) | DRG 309 ==
LOC: ED 15:18 → EDINP 18:03 → SUATTDRO 18:03 → EDINP 20:59

== ENCOUNTER 2022-04-27 09:40 | Inpatient (IN) ==
[2022-04-27 10:56] LABS: Basophils # (auto) 0.02 K/uL (0-0.2); Basophils % (auto) 0.6 %; Eosinophils # (auto) 0.15 K/uL (0-0.5); Eosinophils % (auto) 4.7 %; Hemoglobin 9.9 g/dL (14.0-18.0); Immature Granulocytes # (auto) 0.01 K/uL (0.00-0.02); Immature Granulocytes % (auto) 0.3 %; Lymphocytes # (auto) 0.53 K/uL (1.2-3.4); Lymphocytes % (auto) 16.7 %; Mean Corpuscular Hemoglobin 30.7 pg (25-34); Mean Corpuscular Volume 92.9 fL (80-100); Mean Platelet Volume 10.5 fL (7.4-10.4); Monocytes # (auto) 0.39 K/uL (0.11-0.59); Monocytes % (auto) 12.3 %; Neutrophils # (auto) 2.08 K/uL (1.4-6.5); Neutrophils % (auto) 65.4 %; Platelet Count 136 K/uL (130-400); RDW Coefficient of Variation 18.9 % (11.5-14.5); RDW Standard Deviation 62.5 fL (36.4-46.3); Red Blood Count 3.23 M/uL (4.7-6.1); White Blood Count 3.18 K/uL (4.8-10.8)
[2022-04-27 11:21] LABS: Albumin Globulin Ratio 0.9 (0.9-2); Albumin Level 2.8 gm/dl (3.4-5.0); BUN Creatinine Ratio 11.3 (10-20); Bilirubin,Total 0.8 mg/dl (0.2-1.0); Calcium 8.1 mg/dl (8.5-10.1); Creatinine Clr Calc Pharmacy 73.9 ml/min; Est GFR (African American) 60.9 ml/min; Est GFR (Non-African American) 52.6 ml/min; Globulin 3.1 gm/dl (2.5-4.0); Potassium 4.1 mmol/L (3.5-5.1); Total Protein 5.9 gm/dl (6.0-8.3)
[2022-04-27 11:28] LABS: Partial Thromboplastin Ratio 2.3; Prothrombin Time > 90.0 Seconds (9.0-12.0)
[2022-04-27] MEDS ORDERED: PHYTONADIONE 5 MG in DEXTROSE 5% 50 ML IV ONE ×2 (11:52→12:13)
[2022-04-27] MEDS ORDERED: OPTIRAY 320 125ml IV ONE ×2 (11:56→16:34)
--- NOTE | 2022-04-27 12:32 | CT Scan Report ---
ABDOMEN AND PELVIS CT WITH IV CONTRAST CT DOSE: 2122.48 mGy.cm HISTORY: Acute GI bleed in a patient with history of known colon cancer GIB, colon CA, anemia TECHNIQUE: Multiaxial CT images of the abdomen and pelvis were performed following the IV administrat ion of 119 cc of Optiray, A dose lowering technique was utilized adhering to the principles of ALARA . COMPARISON STUDY: CT abdomen and pelvis 12/20/2021 FINDINGS: Cardiomegaly with partially imaged pacer leads. Trace pleural effusions. There is mild subs egmental bibasilar atelectasis. No pneumatosis or pneumoperitoneum. The spleen is enlarged measuring up to 17 cm in length. The liver is diffusely heterogeneous and demonstrates marginal nodularity sugg estive of cirrhosis. Ill-defined hypodense lesion within the hepatic dome is redemonstrated measuring 6.1 x 4.5 cm, previously measured at approximately 5.5 cm. There is patency of the hepatic and yin l veins. Unremarkable adrenal glands and gallbladder. Mild interstitial edema of the pancreas. Atrophic right kidney with multifocal cortical scarring and parenchymal thinning. Cysts of the kidney s measure up to 4.6 cm on the right. 3.7 cm left renal cyst demonstrates mild marginal/septal calcifi cations. 5 mm nonobstructing calculus of the interpolar left kidney. 4 mm nonobstructing calculus of the superior pole right kidney. No ureteral calculi or hydronephrosis. Partial distention of the urin rossy bladder with mild wall thickening. Atherosclerosis of the aorta without aneurysm. There is no lym phadenopathy. There is diffuse mesenteric edema with trace perisplenic ascites. Pararectal inflammation. There is diffuse wall thickening of the distal sigmoid and rectum with sugge sted wall irregularity noted within the mid rectum. No obstruction. Mild colonic diverticulosis. Norm al appendix. No acute fracture. Discectomy with posterior interbody otto and screw fusion at L4-L5. No destructive bone lesions identified. IMPRESSION: 1. Circumferential wall thickening of the distal sigmoid and rectum is redemonstrated which may corre late with the patient's reportedly known malignancy. There is no bowel obstruction or pneumoperitoneu m. 2. Trace pleural effusions with trace ascites and mild diffuse mesenteric edema. Additionally, there is questioned interstitial edema within the pancreas. Correlate with lipase level to exclude acute pa ncreatitis. 3. Cirrhotic liver with splenomegaly suggestive of portal venous hypertension. 4. Ill-defined suspicious mass within the hepatic dome measures up to 6.1 cm, mildly increased in siz e from the prior study. 5. Nonobstructing bilateral nephrolithiasis. 6. Additional findings as above. ACT 112: Negative or not required by law. The above report was generated using voice recognition software. It may contain grammatical, syntax o r spelling errors. Electronically signed by: Nick Porras M.D. 04/27/2022 12:31 PM
--- NOTE | 2022-04-27 12:53 | Electrocardiogram Report ---
Test Reason : Blood Pressure : / mmHG Vent. Rate : 068 BPM Atrial Rate : 068 BPM P-R Int : 304 ms QRS Dur : 132 ms QT Int : 458 ms P-R-T Axes : 081 069 -51 degrees QTc Int : 487 ms Atrial-paced rhythm with prolonged AV conduction Non-specific intra-ventricular conduction block Possible Anterolateral infarct (cited on or before 15-NOV-2021) Abnormal ECG When compared with ECG of 15-NOV-2021 18:26, Significant changes have occurred Confirmed by Jewel Sanchez ([id number]) on 04/27/2022 12:52:57 PM Referred By: REFERRED SELF Confirmed By:Jewel Sanchez
--- NOTE | 2022-04-27 13:18 | CT Scan Report ---
CT head/brain wo con CLINICAL HISTORY: 61 years-old Male with elevated INR. Acute headache TECHNIQUE: Multiple axial CT images of the head were obtained without contrast. A dose lowering tech nique was utilized adhering to the principles of ALARA. CT DOSE: 906.34 mGycm COMPARISON: Head CT 04/04/2010 FINDINGS: No acute intracranial hemorrhage, midline shift, intracranial mass, hydrocephalus, territorial ischem ia or abnormal extra-axial collection. Opacified vascular structures from the contrast enhanced CT ab domen and pelvis study of same day. Mild involutional changes with ex vacuo ventriculomegaly. White m atter hypodensities are suggestive of chronic microvascular ischemic disease. The calvarium is intact. Mild mucosal thickening of the ethmoid air cells. The mastoid air cells are generally clear. Unremarkable soft tissues and orbits. IMPRESSION: No acute intracranial abnormality. ACT 112: Negative or not required by law. The above report was generated using voice recognition software. It may contain grammatical, syntax o r spelling errors. Electronically signed by: Nick Porras M.D. 04/27/2022 1:17 PM
[2022-04-27] MEDS ORDERED: METOPROLOL SUCC 50MG EXT REL TAB PO STA (13:53)
[2022-04-27] MEDS ORDERED: AMIODARONE 200 MG TAB PO ONE (13:54)
--- NOTE | 2022-04-27 14:10 | History & Physical Report ---
Date of Service April 27, 2022 Assessment & Plan (1) BRBPR (bright red blood per rectum): (2) Colon cancer: (3) Anemia: (4) Supratherapeutic INR: Plan: This is a 61 y/o M with PMH mixed ischemic and nonischemic cardiomyopathy, v- tach, s/p ICD, CAD, h/o left ventricular apical thrombus, paroxysmal atrial fibrillation anticoagulated on warfarin, HTN, dyslipidemia, CKD III, MARIANNA, hypothyroidism, anxiety, elevated LFT's, recently diagnosed colon cancer who presents to ED due to rectal bleeding x3 days. BRBPR Sigmoid/Rectal Colon Cancer - currently undergoing neoadjuvant chemo, completed XRT Supratherapeutic INR Anemia - 2/2 to colon cancer and acute GI loss admit to tele consult gastroenterology Type and Cross, place 2 units on hold H&H q6h s/p 5mg Vit K repeat h/h and vit K @ 1800 NPO gentle IVF, LR @ 80cc/hr after further discussion with GI colleagues they recommend transfer of patient to tertiary facility for IR services Discussed with patient and daughter who wish to pursue [facility] Pt colorectal [place] [facility] [place]asa Sigmoid/Rectal Colon Ca, T3 follows medical onc Dr. Spence, currently receiving Capox therapy, last tx 3 weeks ago completed Capecitabine concurrent with XRT 01/08/[address] Mosquera [facility] with colorectal no evidence of mets, CT today showed Ill-defined suspicious mass within the hepatic dome measures up to 6.1 cm, mildly increased in size from the prior study. Previously liver bx showed severe hepatic steatosis and marked bridging fibrosis with occasional nodule, but does not appear to be a target bx. Will likely need bx of particular lesion to r/o mets Ischemic cardiomyopathy ICD in place Paroxysmal V. tach PAF h/o L ventricular apical thrombus CAD HTN Continue amiodarone, Imdur and metoprolol Patient did not take morning meds will give one-time dose of amiodarone and metoprolol now Hold ASA, warfarin, Lasix and hydralazine As needed IV hydralazine for blood pressure greater than 160 pt last echo 10/21/21 revealed EF 25 to 30%, focal akinesis with mild expansion of the mid and apical septum, mild diffuse hypokinesis in all other segments, grade 1 diastolic dysfunction, no valvular disease Follows [facility] cardiology Elevated troponin high sensitive pt w/o chest pain, repeat in 2 hours relatively unchanged will cycle for completeness, but doubt acs CKD -3 baseline cr 1.4-1.5 bun/cr stable avoid nephrotoxic agents hold lasix for now MARIANNA Cpap at HS DVT ppx: SCDS, hold warfarin for now and asa, follow inr Dispo: pt currently admitted to PCU, GI services requesting transfer to tertiary for IR, will initiate transfer process PCP: Jennifer FULL CODE PT was seen and examined in collaboration with Dr. Syed, please see addendum History of Present Illness Chief Complaint: Rectal bleeding x 3 days. Primary Care Provider: Radha Rodriguez MD This is a 61 y/o M with PMH mixed ischemic and nonischemic cardiomyopathy, v- tach, s/p ICD, CAD, h/o left ventricular apical thrombus, paroxysmal atrial fibrillation anticoagulated on warfarin, HTN, dyslipidemia, CKD III, MARIANNA, hypothyroidism, anxiety, elevated LFT's, recently diagnosed colon cancer who presents to ED due to rectal bleeding x3 days. Daughter is at bedside. Of significance patient was diagnosed with colon cancer 09/15/2021 after undergoing a colonoscopy due to iron deficiency anemia which revealed an ulcerated nonobstructing medium-sized mass found in the sigmoid colon. The mass was partially circumferential. Biopsies from the mass was consistent with an infiltrating well differentiated carcinoma. Based on endoscopic ultrasound patient was diagnosed with T3 disease. He was seen by colorectal team who recommended total neoadjuvant chemotherapy and radiation. His last radiation was approximately 3 months ago. His last dose of chemo was 3 weeks ago and he was due for it today. He is currently being treated with CAPOX. His medical oncologist is Dr. Spence. He states approximately 2 to 3 days ago he developed bright red blood per rectum. The amount of blood got worse over the last 2 to 3 days. He notes a significant amount of bright red blood in the toilet bowl and on toilet paper. This morning he was lightheaded when walking, but this resolved with sitting. He also felt more fatigued. Due to symptoms worsening he presented to ED. He otherwise has been doing well and tolerating chemo well. He does complain of mild lower abdominal discomfort. He states this morning he did have a sharp left lower quadrant abdominal pain that was relieved with a bowel movement. He denies any frances diarrhea, but also admits is difficult to tell with the amount of blood. He has never had anything like this before. He denies any fever, chills, sweats, syncope, change in vision, change in hearing, chest pain, shortness breath, cough, URI symptoms, emesis, dysuria, increased urgency or frequency with urination. He did have mild nausea this morning that was improved with oral Zofran. In ED patient was found to have a worsening anemia with a hemoglobin of 9.9 and 30.0. His INR was 9.6. His creatinine was stable at 1.42. He did have minimally elevated troponin at 23.3 and lipase at 134. He underwent CT abdomen pelvis which revealed the circumferential wall thickening of the distal sigmoid colon and rectum which correlates with patient's known malignancy. There is no bowel obstruction or pneumoperitoneum. Also noted was trace pleural effusions with trace ascites and mild diffuse mesen teric edema. Also noted was interstitial edema within the pancreas. Cirrhotic morphology of liver suggestive of portal venous hypertension. An ill-defined suspicious mass within the hepatic dome measures up to 6.1 cm which is mildly increased from prior study. During ER evaluation patient developed a significant occipital head pain that was rated as a 10 out of 10, sharp and stabbing. Head CT was then ordered to rule out bleeding given supratherapeutic INR. His head CT was negative for any acute abnormality. He did receive 5 mg of IV vitamin K in ED. Allergies Allergy/AdvReac Type Severity Reaction Status Date / Time No Known Allergies Allergy Verified 01/08/22 09:52 Home Medications Medication Instructions Recorded Confirmed Type amiodarone 200 mg tablet 300 mg PO BID 09/07/19 04/27/22 History hydrocodone 5 mg-acetaminophen 325 1 tab PO Q6 PRN 09/07/19 04/27/22 History mg tablet levothyroxine 112 mcg tablet 112 mcg PO DAILYBB 01/11/20 04/27/22 History nitroglycerin 0.4 mg sublingual 0.4 mg SUBLINGUAL UD PRN 08/13/20 04/27/22 H istory tablet (Nitrostat) isosorbide mononitrate 30 mg 30 mg PO QPM 12/25/20 04/27/22 History tablet,extended release 24 hr aspirin 81 mg chewable tablet 81 mg PO DAILY 10/20/21 04/27/22 History (Aspirin Childrens) metoprolol succinate 100 mg 100 mg PO BID 10/20/21 04/27/22 History tablet,extended release 24 hr ferrous sulfate 325 mg (65 mg 325 mg PO DAILY #30 tab 10/21/21 04/27/22 Rx iron) tablet,delayed release iron,carbonyl 65 mg-vitamin C 125 1 tab PO DAILY 11/14/21 04/27/22 History mg tablet,delayed release (Vitron-C) warfarin 5 mg tablet 2.5 mg PO TUTH tab 11/14/21 04/27/22 History ondansetron HCl 8 mg tablet 8 mg PO Q8H PRN 12/04/21 04/27/22 History tamsulosin 0.4 mg capsule (Flomax) 0.4 mg PO HS #14 cap 12/20/21 04/27/22 Rx furosemide 20 mg tablet (Lasix) 10 mg PO MOWEFR 04/27/22 04/27/22 History hydralazine 25 mg tablet 25 mg PO AMHS 04/27/22 04/27/22 History warfarin 5 mg tablet 5 mg PO SUMOWEFRSA 04/27/22 04/27/22 History Past Med/Surg History Medical History Afib Maintained on low dose Amiodarone CAD (coronary artery disease) Non-obstructive per 2012 cath Cardiomyopathy Mixed ischemic and nonischemic CM - EF <20%- complicated by VT. ICD placed 2013 No VT episodes since 10/2020 per cardio records Current EF 20-25% F/U RADHA GALLO CHF (congestive heart failure) CHF (congestive heart failure) hx/no recent issues Chronic back pain CKD (chronic kidney disease) stage 3, GFR 30-59 ml/min Depression Elevated LFTs Gout History of kidney stones History of ventricular tachycardia Hypertension Hypothyroidism LBBB (left bundle branch block) Incomplete per records Left ventricular aneurysm Dx'ed around 2011- on Coumadin- cardio monitoring Moderate in size and noted to apical and inferior area. Hx of LV apical thrombus Myocardial Infarction 15+ years ago- medically managed On anticoagulant therapy WARFARIN Paroxysmal A-fib Pneumonia Pneumonia HX-2000 Presence of combination internal cardiac defibrillator (ICD) and pacemaker Implanted 2013 (follows with cardiology/Dr. Jaffe/RADHA GALLO) Sleep apnea CPAP SOB (shortness of breath) on exertion ON OCC Surgical History H/O arthroscopic knee surgery multiple on bilateral knees H/O neck surgery History of cardiac cath 2011= NO STENTS History of colonoscopy (~09/15/21) History of cystoscopy History of esophagogastroduodenoscopy (EGD) History of implantable cardioverter-defibrillator (ICD) placement History of laminectomy L4-L5 History of lithotripsy History of lumbar surgery 09/17/19 Grade 1 view Mac 3, magnet placed on L chest wall during procedure History of tonsillectomy Status post uvulopalatopharyngoplasty Family History Father , 54yo Lung cancer Mother , 85yo Alzheimer disease Brother No problems noted. Brother No problems noted. Sister No problems noted. Daughter No problems noted. Daughter No problems noted. Social History Smoking Status: Never smoker Second Hand Exposure: No; Hx Alcohol Use: No Hx Substance Use: No Preferred Language: Arabic Communication Ability: Effective Visual Impairment: Limited Hearing Ability: Normal Sap Basis Required: No Beliefs That Will Affect Care: None marital status: Current Living Situation: Alone Current Living Situation Comment: dtr lives next door current occupational status: disabled Other Information That Helps Us Care for You: No Feels Safe at Home: Yes Safety Concerns: Feels Safe At This Time caffeine: No during the past year weight has: decreased > 10 lbs Assistive Devices: CPAP and Glasses Review of Systems Review of Systems: All systems reviewed & are unremarkable except as noted in HPI & below Physical Exam Physical Exam: Please refer to Dr. Syed addendum for physical exam findings Results & Data Results & Data ([facility]) Vital Signs (Past 12 Hours) Vital Signs Temp Pulse Pulse Resp BP BP Pulse Ox 04/27/22 12:59 61 18 129/75 97 04/27/22 12:00 70 18 134/78 96 04/27/22 10:42 96 04/27/22 09:43 36.5 C 86 18 128/85 93 Diagnostic Findings Abdomen/Pelvis CT 04/27/22 11:[address] WITH IV CONTRAST CT DOSE: 2122.48 mGy.cm HISTORY: Acute GI bleed in a patient with history of known colon cancer GIB, colon CA, anemia TECHNIQUE: Multiaxial CT images of the abdomen and pelvis were performed following the IV administration of 119 cc of Optiray, A dose lowering technique was utilized adhering to the principles of ALARA. COMPARISON STUDY: CT abdomen and pelvis 12/20/2021 FINDINGS: Cardiomegaly with partially imaged pacer leads. Trace pleural effusions. There is mild subsegmental bibasilar atelectasis. No pneumatosis or pneumoperitoneum. The spleen is enlarged measuring up to 17 cm in length. The liver is diffusely heterogeneous and demonstrates marginal nodularity suggestive of cirrhosis. Ill-defined hypodense lesion within the hepatic dome is redemonstrated measuring 6.1 x 4.5 cm, previously measured at approximately 5.5 cm. There is patency of the hepatic and portal veins. Unremarkable adrenal glands and gallbladder. Mild interstitial edema of the pancreas. Atrophic right kidney with multifocal cortical scarring and parenchymal thinning. Cysts of the kidneys measure up to 4.6 cm on the right. 3.7 cm left renal cyst demonstrates mild marginal/septal calcifications. 5 mm nonobstructing calculus of the interpolar left kidney. 4 mm nonobstructing calculus of the superior pole right kidney. No ureteral calculi or hydronephrosis. Partial distention of the urinary bladder with mild wall thickening. Atherosclerosis of the aorta without aneurysm. There is no lymphadenopathy. There is diffuse mesenteric edema with trace perisplenic ascites. Pararectal inflammation. There is diffuse wall thickening of the distal sigmoid and rectum with suggested wall irregularity noted within the mid rectum. No obstruction. Mild colonic diverticulosis. Normal appendix. No acute fracture. Discectomy with posterior interbody otto and screw fusion at L4-L5. No destructive bone lesions identified. IMPRESSION: 1. Circumferential wall thickening of the distal sigmoid and rectum is redemonstrated which may correlate with the patient's reportedly known malignancy. There is no bowel obstruction or pneumoperitoneum. 2. Trace pleural effusions with trace ascites and mild diffuse mesenteric edema. Additionally, there is questioned interstitial edema within the pancreas. Correlate with lipase level to exclude acute pancreatitis. 3. Cirrhotic liver with splenomegaly suggestive of portal venous hypertension. 4. Ill-defined suspicious mass within the hepatic dome measures up to 6.1 cm, mildly increased in size from the prior study. 5. Nonobstructing bilateral nephrolithiasis. 6. Additional findings as above. ACT 112: Negative or not required by law. The above report was generated using voice recognition software. It may contain grammatical, syntax or spelling errors. Electronically signed by: Nick Porras M.D. 04/27/2022 12:[address] 04/27/22 13:04 CT head/brain wo con CLINICAL HISTORY: 61 years-old Male with elevated INR. Acute headache TECHNIQUE: Multiple axial CT images of the head were obtained without contrast. A dose lowering technique was utilized adhering to the principles of ALARA. CT DOSE: 906.34 mGycm COMPARISON: Head CT 04/04/2010 FINDINGS: No acute intracranial hemorrhage, midline shift, intracranial mass, hydrocephalus, territorial ischemia or abnormal extra-axial collection. Opacified vascular structures from the contrast enhanced CT abdomen and pelvis study of same day. Mild involutional changes with ex vacuo ventriculomegaly. White matter hypodensities are suggestive of chronic microvascular ischemic disease. The calvarium is intact. Mild mucosal thickening of the ethmoid air cells. The mastoid air cells are generally clear. Unremarkable soft tissues and orbits. IMPRESSION: No acute intracranial abnormality. ACT 112: Negative or not required by law. The above report was generated using voice recognition software. It may contain grammatical, syntax or spelling errors. Electronically signed by: Nick Porras M.D. 04/27/2022 1:17 PM Medications Administered Medication List Discontinued Medications Phytonadione 5 mg/ Dextrose 50.5 mls @ 101 mls/hr IV ONE ONE Stop: 04/27/22 12:21 Last Admin: 04/27/22 12:54 Dose: Not Given Documented by: [id number] Phytonadione 5 mg/ Dextrose 50.5 mls @ 101 mls/hr IV ONE ONE Stop: 04/27/22 12:42 Last Infusion: 04/27/22 13:38 Dose: 0 mls/hr Documented by: [id number] Admin: 04/27/22 12:54 Dose: 101 mls/hr Documented by: [id number] Ioversol (Optiray 320 125ml) 119 ml IV ONCE ONE Stop: 04/27/22 11:57 Last Admin: 04/27/22 11:58 Dose: 119 ml Documented by: [id number] ECG Rate (beats per minute): 68 Rhythm: other (Atrial paced with prolonged AV conduction) COVID-19 Results Results COVID-19 Adm Lab Results: RBC 3.23 M/uL (4.7-6.1) L 04/27/22 WBC 3.18 K/uL (4.8-10.8) L 04/27/22 Hgb 9.7 g/dL (14.0-18.0) L 04/27/22 Hct 29.9 % (42-52) L 04/27/22 Plt Count 136 K/uL (130-400) 04/27/22 Neutrophils (%) (Auto) 65.4 % 04/27/22 Lymphocytes (%) (Auto) 16.7 % 04/27/22 Monocytes # (Auto) 0.39 K/uL (0.11-0.59) 04/27/22 Eosinophils # (Auto) 0.15 K/uL (0-0.5) 04/27/22 Immature Granulocyte % (Auto) 0.3 % 04/27/22 Neutrophils # (Auto) 2.08 K/uL (1.4-6.5) 04/27/22 Lymphocytes # (Auto) 0.53 K/uL (1.2-3.4) L 04/27/22 Monocytes # (Auto) 0.39 K/uL (0.11-0.59) 04/27/22 Eosinophils # (Auto) 0.15 K/uL (0-0.5) 04/27/22 Basophils # (Auto) 0.02 K/uL (0-0.2) 04/27/22 Immature Granulocyte # (Auto) 0.01 K/uL (0.00-0.02) 04/27/22 Na 142 mmol/L (136-145) 04/27/22 K 4.1 mmol/L (3.5-5.1) 04/27/22 Cl 109 mmol/L (98-107) H 04/27/22 CO2 30 mmol/L (21-32) 04/27/22 Anion Gap 3 (3-11) 04/27/22 BUN 16 mg/dl (6-23) 04/27/22 Creatinine 1.42 mg/dl (0.6-1.4) H 04/27/22 BUN/Creatinine Ratio 11.3 (10-20) 04/27/22 Glucose Level 89 mg/dl (70-99(Fasting)) 04/27/22 Ca 8.1 mg/dl (8.5-10.1) L 04/27/22 Total Bilirubin 0.8 mg/dl (0.2-1.0) 04/27/22 AST/SGOT 92 U/L (13-39) H 04/27/22 ALT/SGPT 45 U/L (7-52) 04/27/22 Alkaline Phosphatase 91 U/L (34-104) 04/27/22 Total Protein 5.9 gm/dl (6.0-8.3) L 04/27/22 Albumin 2.8 gm/dl (3.4-5.0) L 04/27/22 Globulin 3.1 gm/dl (2.5-4.0) 04/27/22 Albumin/Globulin Ratio 0.9 (0.9-2) 04/27/22 PTT 63.0 Seconds (21.0-31.0) H* 04/27/22 INR 4.3 (0.9-1.1) H 04/27/22 SARS-CoV-2, RNA, NAAT NEGATIVE (NEGATIVE) 04/27/22 Code Status & VTE Plan Code Status FULL CODE VTE Prophylaxis Plan VTE Prophylaxis will be ordered: Yes Supervising Physician Co-Signing Physician Notes Patient is a 61-year-old male with history of ischemic and nonischemic cardiomyopathy, ventricular apical thrombus, paroxysmal atrial fibrillation on chronic anticoagulation with Coumadin, recently diagnosed adenocarcinoma of the colon and other medical problems presents with history of rectal bleeding since 3 days duration. Currently is undergoing chemotherapy and radiation for colon cancer. Patient noticed to have bright red blood per rectum for the past 3 days which has been gradually worsening. He states having associated left lower quadrant abdominal pain which relieved with bowel movement. Please review HPI for complete details of presentation. Blood work showed hemoglobin 9.9, hematocrit 30, WBC 3.18, platelets 136, INR 9.6, creatinine 1.42, troponin 28, lipase 134. CT abdomen showed circumferential wall thickening of the distal sigmoid and rectum, trace pleural effusions with trace ascites and mild diffuse mesenteric edema. Cirrhotic liver with splenomegaly suggestive of portal hypertension noted. Also noted ill-defined suspicious mass within the hepatic dome measuring 6.1 cm. Physical Exam: Vitals signs as noted above General Appearance:Obese, no apparent distress Head: normocephalic, Atraumatic Eyes: normal inspection, EOMI Neck: supple, Trachea midline Respiratory/Chest: Normal breath sounds, CTA, No accessory muscle use Cardiovascular: S1, S2, No murmur Abdomen/GI:Soft, RLQ tender, Bowel sounds present Extremities/Musculoskeletal:normal inspection, no edema Neurologic/Psych:AAOX3, grossly no focal neurological deficits Skin: normal color, warm Rectal bleeding In setting of supratherapeutic INR secondary to Coumadin use Bleeding likely secondary to colon cancer Received vitamin K in ED Monitor INR Transfuse PRBCs as needed Monitor H&H Discussed with GI, who recommended tertiary care facility transfer for IR Discussed with GI, IR service at [facility] who currently believes patient does not need transfer based on Imaging studies Currently bleeding stopped If recurrence of bleeding, will consider repeating vitamin K, Kcentra Consider radiation oncology evaluation if needed I personally reviewed the record. Patient is interviewed and examined at bedside. Patient's care is coordinated with Brenda Black PA-C. Please refer to the documentation above for details of patient's presentation and for discussion of other issues.
[2022-04-27] MEDS ORDERED: ACETAMINOPHEN 325 MG TAB PO PRN (14:14)
[2022-04-27] MEDS ORDERED: POLYETHYLENE (MIRALAX) 17 GM PACK PO PRN (14:14)
[2022-04-27] MEDS ORDERED: hydrALAZINE HCL 20 MG/ML VIAL IV PRN ×2 (14:14→15:52)
[2022-04-27] MEDS ORDERED: ONDANSETRON INJ 2 MG/ML 2 ML VIAL IV PRN (14:14)
[2022-04-27] MEDS ORDERED: SODIUM CHLORIDE 0.9% 250 ML IV PRN (14:14)
[2022-04-27] MEDS ORDERED: HYDROCODONE/ACETAMOPHEN 5/325MG TAB PO PRN (14:14)
[2022-04-27] MEDS ORDERED: ALUMINUM/MAGNESIUM SUSP 30 ML UDC PO PRN (14:14)
--- NOTE | 2022-04-27 14:30 | Communication Note ---
Date of Service: April 27, 2022 Asked by Joe Black to consult on this pt. Chart reviewed by Dr. Sanchez. Sigmoid colon cancer dx'ed in Sep 2021, undergoing neoadjuvant chemo. No clear evidence of distant mets but imaging today with cirrhosis and question 6cm mass. Liver bx in Sep 2021 with bridging fibrosis. CAD, h/o left ventricular apical thrombus, paroxysmal atrial fibrillation anticoagulated on warfarin. Presented today w rectal bleeding. INR 6.4, being reversed. Hb 9.9. Recommend transfer to [place] for IR tx of bleeding. There is no effective endoscopic tx for malignant bleeding. Pt is at high risk for significant bleed with supratherapeutic INR and bridging liver fibrosis (near cirrhosis). This was communicated to Joe Black PA-C and we asked the the consult be cancelled. I have discussed the patient's management with the advanced practitioner. Please refer to the nurse practitioner's note for the documented findings and plan of care. Patient with INR of 9 and known colon cancer, presented with bleeding, likely from the colon mass. he also has liver cirrhosis with portal HTN. I recommend transfer to a tertiary care center with IR availability. If he decompensates he will need urgent IR intervention. If any endoscopic therapy is planned it is better done with IR back up. Most of the endoscopic modalities to cntrol bleeding are ineffective for tumor related bleeding.
[2022-04-27 14:40] LABS: INR > 9.6 (0.9-1.1)
--- NOTE | 2022-04-27 14:40 | Emergency Department Note ---
Impression & Plan BRBPR (bright red blood per rectum), Colon cancer, Supratherapeutic INR, Atrial fibrillation, ABLA (acute blood loss anemia) ED Provider Note CHIEF COMPLAINT: rectal bleeding, colon CA HISTORY OF PRESENT ILLNESS: This 61 yo male patient presents to the emergency department with complaints of rectal bleeding. The patient states he suffers from colon cancer and has completed radiation. He is current pain chemotherapy. He began passing blood from the bowels several days ago but it was light pink. Today began a bit heavier. Patient is having difficulty controlling his bowels, daughter notes blood on the floor upon her arrival to the home today. Patient denies any vomiting or upper abdominal pain. He denies any fevers, chills, chest pain shortness of breath. REVIEW OF SYSTEMS: A review of systems was performed with positives and pertinent negatives listed in the history of present illness. 10 systems were reviewed and are otherwise negative. ALLERGIES: see below MEDICATIONS: see below PMH: see below SOCIAL HISTORY: see below DDx: Diverticulosis, AVM, coagulopathy, colitis, inflammatory bowel disease, malignancy, Ashley-Mercer tear, esophagitis, peptic ulcer disease, variceal bleed, gastritis, epistaxis, fissure, hemorrhoids, as well as other pathologies. PHYSICAL EXAM: Vital signs reviewed. General: Chronically ill-appearing 61-year-old male, in no significant distress. HEENT: No scleral icterus, PERRLA, neck supple. Atraumatic. Cardiovascular: Regular rate and rhythm, no extra sounds. Pulmonary: Clear to auscultation bilaterally, normal work of breathing. Abdomen: Soft, obese, nontender, nondistended, positive bowel sounds. Musculoskeletal: Atraumatic, no peripheral edema. Rectal: Guaiac positive BRB, no stool obtained. No external hemorrhoids appreciated. Exam is somewhat limited by body habitus. Neurologic: Patient awake alert and oriented x 3, speech is clear Skin: Warm, dry, no rash EMERGENCY DEPARTMENT COURSE/MDM: This patient was evaluated and appeared to be in no significant distress. IV access was obtained and laboratory work was drawn. The patient was placed on the quality systems technician and noted to be in a paced rhythm. Patient's laboratory work is at goal for hemoglobin of 9.9 from 11.7 several months ago. Patient's INR is greater than 9.6. Pt was given IV Vit K. CT imaging of the abdomen pelvis was performed and reveals findings as below consistent with the patient's known colon cancer. There is a suspicious mass in the dome of the liver which was previously visualized. Patient was discussed with the hospitalist service who will evaluate the patient for admission and further management. He and his daughter are aware of the plan and agreed. MONITORING: An order for cardiac monitoring was placed and the patient is noted to be in a paced rhythm at 68 beats per minute. RADIOLOGY: ABDOMEN AND PELVIS CT WITH IV CONTRAST CT DOSE: 2122.48 mGy.cm HISTORY: Acute GI bleed in a patient with history of known colon cancer GIB, colon CA, anemia TECHNIQUE: Multiaxial CT images of the abdomen and pelvis were performed following the IV administration of 119 cc of Optiray, A dose lowering technique was utilized adhering to the principles of ALARA. COMPARISON STUDY: CT abdomen and pelvis 12/20/2021 FINDINGS: Cardiomegaly with partially imaged pacer leads. Trace pleural effusions. There is mild subsegmental bibasilar atelectasis. No pneumatosis or pneumoperitoneum. The spleen is enlarged measuring up to 17 cm in length. The liver is diffusely heterogeneous and demonstrates marginal nodularity suggestive of cirrhosis. Ill-defined hypodense lesion within the hepatic dome is redemonstrated measuring 6.1 x 4.5 cm, previously measured at approximately 5.5 cm. There is patency of the hepatic and portal veins. Unremarkable adrenal glan ds and gallbladder. Mild interstitial edema of the pancreas. Atrophic right kidney with multifocal cortical scarring and parenchymal thinning. Cysts of the kidneys measure up to 4.6 cm on the right. 3.7 cm left renal cyst demonstrates mild marginal/septal calcifications. 5 mm nonobstructing calculus of the interpolar left kidney. 4 mm nonobstructing calculus of the superior pole right kidney. No ureteral calculi or hydronephrosis. Partial distention of the urinary bladder with mild wall thickening. Atherosclerosis of the aorta without aneurysm. There is no lymphadenopathy. There is diffuse me senteric edema with trace perisplenic ascites. Pararectal inflammation. There is diffuse wall thickening of the distal sigmoid and rectum with suggested wall irregularity noted within the mid rectum. No obstruction. Mild colonic diverticulosis. Normal appendix. No acute fracture. Discectomy with posterior interbody otot and screw fusion at L4-L5. No destructive bone lesions identified. IMPRESSION: 1. Circumferential wall thickening of the distal sigmoid and rectum is redemonstrated which may correlate with the patient's reportedly known malignancy. There is no bowel obstruction or pneumoperitoneum. 2. Trace pleural effusions with trace ascites and mild diffuse mesenteric edema. Additionally, there is questioned interstitial edema within the pancreas. Correlate with lipase level to exclude acute pancreatitis. 3. Cirrhotic liver with splenomegaly suggestive of portal venous hypertension. 4. Ill-defined suspicious mass within the hepatic dome measures up to 6.1 cm, mildly increased in size from the prior study. 5. Nonobstructing bilateral nephrolithiasis. 6. Additional findings as above. ACT 112: Negative or not required by law. The above report was generated using voice recognition software. It may contain grammatical, syntax or spelling errors. Electronically signed by: Nick Porras M.D. 04/27/2022 12:31 PM Dictated:04/27/22 1213 Transcribed: 04/27/22 121 EKG: Atrially paced rhythm with prolonged AV conduction at 68 bpm. Nonspecific intraventricular conduction delay. Possible anterior lateral infarct. QTC is 487. No PVC, no PAC. 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 ICD placed 2013 No VT episodes since 10/2020 per cardio records Current EF 20-25% F/U RADHA GALLO CHF (congestive heart failure) CHF (congestive heart failure) hx/no recent issues Chronic back pain CKD (chronic kidney disease) stage 3, GFR 30-59 ml/min Depression Elevated LFTs Gout History of kidney stones History of ventricular tachycardia Hypertension Hypothyroidism LBBB (left bundle branch block) Incomplete per records Left ventricular aneurysm Dx'ed around 2011- on Coumadin- cardio monitoring Moderate in size and noted to apical and inferior area. Hx of LV apical thro mbus Myocardial Infarction 15+ years ago- medically managed On anticoagulant therapy WARFARIN Paroxysmal A-fib Pneumonia Pneumonia HX-2000 Presence of combination internal cardiac defibrillator (ICD) and pacemaker Implanted 2013 (follows with cardiology/Dr. Jaffe/RADHA GALLO) Sleep apnea CPAP SOB (shortness of breath) on exertion ON OCC Surgical History H/O arthroscopic knee surgery multiple on bilateral knees H/O neck surgery History of cardiac cath 2011= NO STENTS History of colonoscopy (~09/15/21) History of cystoscopy History of esophagogastroduodenoscopy (EGD) History of implantable cardioverter-defibrillator (ICD) placement History of laminectomy L4-L5 History of lithotripsy History of lumbar surgery 09/17/19 Grade 1 view Mac 3, magnet placed on L chest wall during procedure History of tonsillectomy Status post uvulopalatopharyngoplasty Family History Father , 54yo Lung cancer Mother , 85yo Alzheimer disease Brother No problems noted. Brother No problems noted. Sister No problems noted. Daughter No problems noted. Daughter No problems noted. Social History Smoking Status: Never smoker Second Hand Exposure: No; Hx Alcohol Use: No Hx Substance Use: No Preferred Language: Faroese Communication Ability: Effective Visual Impairment: Limited Hearing Ability: Normal Prorate Clerk Required: No Beliefs That Will Affect Care: None marital status: Current Living Situation: Alone Current Living Situation Comment: dtr lives next door current occupational status: disabled Other Information That Helps Us Care for You: No Feels Safe at Home: Yes Safety Concerns: Feels Safe At This Time caffeine: No during the past year weight has: decreased > 10 lbs Assistive Devices: CPAP Allergies Allergies Allergy/AdvReac Type Severity Reaction Status Date / Time No Known Allergies Allergy Verified 01/08/22 09:52 Home Meds Home Medications Medication Instructions Recorded Confirmed amiodarone 200 mg tablet 300 mg PO BID 09/07/19 04/27/22 hydrocodone 5 mg-acetaminophen 325 1 tab PO Q6 PRN 09/07/19 04/27/22 mg tablet levothyroxine 112 mcg tablet 112 mcg PO DAILYBB 01/11/20 04/27/22 nitroglycerin 0.4 mg sublingual 0.4 mg SUBLINGUAL UD PRN 08/13/20 04/27/22 tablet (Nitrostat) isosorbide mononitrate 30 mg 30 mg PO QPM 12/25/20 04/27/22 tablet,extended release 24 hr metoprolol succinate 100 mg 100 mg PO BID 10/20/21 04/27/22 tablet,extended release 24 hr iron,carbonyl 65 mg-vitamin C 125 1 tab PO DAILY 11/14/21 04/27/22 mg tablet,delayed release (Vitron-C) ondansetron HCl 8 mg tablet 8 mg PO Q8H PRN 12/04/21 04/27/22 hydralazine 25 mg tablet 25 mg PO AMHS 04/27/22 04/27/22 Previous Rx's Medication Instructions Recorded ferrous sulfate 325 mg (65 mg 325 mg PO DAILY #30 tab 10/21/21 iron) tablet,delayed release tamsulosin 0.4 mg capsule (Flomax) 0.4 mg PO HS #14 cap 12/20/21 Results & Data (ED) Vital Signs Vital Signs - 24 hr 04/27/22 09:43 04/27/22 10:42 04/27/22 12:00 Temperature 36.5 C Temperature Source Oral Pulse Rate 86 Pulse Rate [Right Finger] 70 Pulse Rhythm Regular Pulse Rhythm [Right Finger] Regular Pulse Strength Normal Pulse Strength [Right Finger] Normal Respiratory Rate 18 18 Respiratory Effort / Characteristics Non-Labored Spontaneous Non-Labored Respiratory Depth Normal Normal Respiratory Pattern Regular Regular Blood Pressure 128/85 Blood Pressure [Right Arm] 134/78 Blood Pressure Mean 99 Blood Pressure Mean [Right Arm] 96 Blood Pressure Position Sitting Blood Pressure Position [Right Arm] Lying Pulse Oximetry 93 96 96 Oxygen Delivery Method Room Air Room Air Room Air Sepsis Recent Fever Within 48 Hours No Sepsis New/Unexplained Change in Mental Status No Sepsis Action Taken by Nursing No Action Required Home Medications Current Medication List: was personally reviewed by me Laboratory Data Attestation: I reviewed the patient's lab results. Result diagrams: 04/30/22 16:22 04/29/22 05:35 Lab Results 04/27/22 04/27/22 04/27/22 Range/Units 10:28 10:35 10:35 WBC 3.18 L (4.8-10.8) K/uL RBC 3.23 L (4.7-6.1) M/uL Hgb 9.9 L (14.0-18.0) g/dL Hct 30.0 L (42-52) % MCV 92.9 (80-100) fL MCH 30.7 (25-34) pg MCHC 33.0 (32-36) g/dL RDW Std Deviation 62.5 H (36.4-46.3) fL RDW Coeff of Chris 18.9 H (11.5-14.5) % Plt Count 136 (130-400) K/uL MPV 10.5 H (7.4-10.4) fL Immature Gran % (Auto) 0.3 % Neut % (Auto) 65.4 % Lymph % (Auto) 16.7 % Gregory % (Auto) 12.3 % Eos % (Auto) 4.7 % Baso % (Auto) 0.6 % Neut # (Auto) 2.08 (1.4-6.5) K/uL Lymph # (Auto) 0.53 L (1.2-3.4) K/uL Gregory # (Auto) 0.39 (0.11-0.59) K/uL Eos # (Auto) 0.15 (0-0.5) K/uL Baso # (Auto) 0.02 (0-0.2) K/uL Immature Gran # (Auto) 0.01 (0.00-0.02) K/uL PT > 90.0 H (9.0-12.0) Seconds INR > 9.6 H* (0.9-1.1) APTT 63.0 H* (21.0-31.0) Seconds PTT Ratio 2.3 Sodium (136-145) mmol/L Potassium (3.5-5.1) mmol/L Chloride (98-107) mmol/L Carbon Dioxide (21-32) mmol/L Anion Gap (3-11) BUN (6-23) mg/dl Creatinine (0.6-1.4) mg/dl Est Cr Clr Drug Dosing ml/min Est GFR ( Amer) ml/min Est GFR (Non-Af Amer) ml/min BUN/Creatinine Ratio (10-20) Glucose (70-99(Fasting)) mg/dl Calcium (8.5-10.1) mg/dl Total Bilirubin (0.2-1.0) mg/dl AST (13-39) U/L ALT (7-52) U/L Alkaline Phosphatase (34-104) U/L Troponin I High Sens (0-20) pg/ml Total Protein (6.0-8.3) gm/dl Albumin (3.4-5.0) gm/dl Globulin (2.5-4.0) gm/dl Albumin/Globulin Ratio (0.9-2) Lipase (11-82) U/L SARS-CoV-2, RNA, NAAT (NEGATIVE) Blood Type O Positive Antibody Screen NEGATIVE Crossmatch See Detail 04/27/22 04/27/22 04/27/22 Range/Units 10:35 10:35 10:50 WBC (4.8-10.8) K/uL RBC (4.7-6.1) M/uL Hgb (14.0-18.0) g/dL Hct (42-52) % MCV (80-100) fL MCH (25-34) pg MCHC (32-36) g/dL RDW Std Deviation (36.4-46.3) fL RDW Coeff of Chris (11.5-14.5) % Plt Count (130-400) K/uL MPV (7.4-10.4) fL Immature Gran % (Auto) % Neut % (Auto) % Lymph % (Auto) % Gregory % (Auto) % Eos % (Auto) % Baso % (Auto) % Neut # (Auto) (1.4-6.5) K/uL Lymph # (Auto) (1.2-3.4) K/uL Gregory # (Auto) (0.11-0.59) K/uL Eos # (Auto) (0-0.5) K/uL Baso # (Auto) (0-0.2) K/uL Immature Gran # (Auto) (0.00-0.02) K/uL PT (9.0-12.0) Seconds INR (0.9-1.1) APTT (21.0-31.0) Seconds PTT Ratio Sodium 142 (136-145) mmol/L Potassium 4.1 (3.5-5.1) mmol/L Chloride 109 H (98-107) mmol/L Carbon Dioxide 30 (21-32) mmol/L Anion Gap 3 (3-11) BUN 16 (6-23) mg/dl Creatinine 1.42 H (0.6-1.4) mg/dl Est Cr Clr Drug Dosing 73.9 ml/min Est GFR ( Amer) 60.9 ml/min Est GFR (Non-Af Amer) 52.6 ml/min BUN/Creatinine Ratio 11.3 (10-20) Glucose 89 (70-99(Fasting)) mg/dl Calcium 8.1 L (8.5-10.1) mg/dl Total Bilirubin 0.8 (0.2-1.0) mg/dl AST 92 H (13-39) U/L ALT 45 (7-52) U/L Alkaline Phosphatase 91 (34-104) U/L Troponin I High Sens 28.0 H (0-20) pg/ml Total Protein 5.9 L (6.0-8.3) gm/dl Albumin 2.8 L (3.4-5.0) gm/dl Globulin 3.1 (2.5-4.0) gm/dl Albumin/Globulin Ratio 0.9 (0.9-2) Lipase 134 H (11-82) U/L SARS-CoV-2, RNA, NAAT NEGATIVE (NEGATIVE) Blood Type Antibody Screen Crossmatch 04/27/22 Range/Units 12:31 WBC (4.8-10.8) K/uL RBC (4.7-6.1) M/uL Hgb (14.0-18.0) g/dL Hct (42-52) % MCV (80-100) fL MCH (25-34) pg MCHC (32-36) g/dL RDW Std Deviation (36.4-46.3) fL RDW Coeff of Chris (11.5-14.5) % Plt Count (130-400) K/uL MPV (7.4-10.4) fL Immature Gran % (Auto) % Neut % (Auto) % Lymph % (Auto) % Gregory % (Auto) % Eos % (Auto) % Baso % (Auto) % Neut # (Auto) (1.4-6.5) K/uL Lymph # (Auto) (1.2-3.4) K/uL Gregory # (Auto) (0.11-0.59) K/uL Eos # (Auto) (0-0.5) K/uL Baso # (Auto) (0-0.2) K/uL Immature Gran # (Auto) (0.00-0.02) K/uL PT (9.0-12.0) Seconds INR (0.9-1.1) APTT (21.0-31.0) Seconds PTT Ratio Sodium (136-145) mmol/L Potassium (3.5-5.1) mmol/L Chloride (98-107) mmol/L Carbon Dioxide (21-32) mmol/L Anion Gap (3-11) BUN (6-23) mg/dl Creatinine (0.6-1.4) mg/dl Est Cr Clr Drug Dosing ml/min Est GFR ( Amer) ml/min Est GFR (Non-Af Amer) ml/min BUN/Creatinine Ratio (10-20) Glucose (70-99(Fasting)) mg/dl Calcium (8.5-10.1) mg/dl Total Bilirubin (0.2-1.0) mg/dl AST (13-39) U/L ALT (7-52) U/L Alkaline Phosphatase (34-104) U/L Troponin I High Sens 23.3 H (0-20) pg/ml Total Protein (6.0-8.3) gm/dl Albumin (3.4-5.0) gm/dl Globulin (2.5-4.0) gm/dl Albumin/Globulin Ratio (0.9-2) Lipase (11-82) U/L SARS-CoV-2, RNA, NAAT (NEGATIVE) Blood Type Antibody Screen Crossmatch Administered Medications Discontinued Medications Amiodarone HCl (Amiodarone 200 Mg Tab) 300 mg PO NOW ONE Stop: 04/27/22 13:55 Last Admin: 04/27/22 14:42 Dose: 300 mg Documented by: [id number] Amiodarone HCl (Amiodarone 200 Mg Tab) 300 mg PO BID TASH Stop: 05/27/22 20:59 Last Admin: 04/30/22 08:22 Dose: 300 mg Documented by: [id number] Admin: 04/29/22 20:17 Dose: 300 mg Documented by: [id number] Admin: 04/29/22 07:56 Dose: 300 mg Documented by: [id number] Admin: 04/28/22 20:42 Dose: 300 mg Documented by: [id number] Admin: 04/28/22 08:50 Dose: 300 mg Documented by: [id number] Admin: 04/27/22 21:20 Dose: 300 mg Documented by: [id number] Ferrous Sulfate (Ferrous Sulfate 325 Mg Tab) 325 mg PO DAILY [facility] Stop: 05/28/22 08:59 Last Admin: 04/30/22 08:22 Dose: 325 mg Documented by: [id number] Admin: 04/29/22 07:55 Dose: 325 mg Documented by: [id number] Admin: 04/28/22 08:50 Dose: 325 mg Documented by: [id number] Phytonadione 5 mg/ Dextrose 50.5 mls @ 101 mls/hr IV ONE ONE Stop: 04/27/22 12:21 Last Admin: 04/27/22 12:54 Dose: Not Given Documented by: [id number] Phytonadione 5 mg/ Dextrose 50.5 mls @ 101 mls/hr IV ONE ONE Stop: 04/27/22 12:42 Last Infusion: 04/27/22 13:38 Dose: 0 mls/hr Documented by: [id number] Admin: 04/27/22 12:54 Dose: 101 mls/hr Documented by: [id number] Lactated Ringer's (Lr) 1,000 mls @ 80 mls/hr IV .[id number] [facility] Stop: 05/27/22 14:13 Last Infusion: 04/28/22 18:59 Dose: 0 mls/hr Documented by: [id number] Admin: 04/28/22 15:18 Dose: 80 mls/hr Documented by: [id number] Infusion: 04/28/22 15:18 Dose: 80 mls/hr Documented by: [id number] Admin: 04/28/22 04:18 Dose: 80 mls/hr Documented by: [id number] Infusion: 04/28/22 04:18 Dose: 80 mls/hr Documented by: [id number] Admin: 04/27/22 14:43 Dose: 80 mls/hr Documented by: [id number] Ioversol (Optiray 320 125ml) 119 ml IV ONCE ONE Stop: 04/27/22 11:57 Last Admin: 04/27/22 11:58 Dose: 119 ml Documented by: [id number] Ioversol (Optiray 320 125ml) 118 ml IV ONCE ONE Stop: 04/27/22 16:35 Last Admin: 04/27/22 16:34 Dose: 118 ml Documented by: [id number] Isosorbide Mononitrate (Isosorbide Gregory Extended Rel 30 Mg Tabcr) 30 mg PO QPM TASH Stop: 05/27/22 20:59 Last Admin: 04/29/22 20:17 Dose: 30 mg Documented by: [id number] Admin: 04/28/22 20:43 Dose: 30 mg Documented by: [id number] Admin: 04/27/22 21:18 Dose: 30 mg Documented by: [id number] Levothyroxine Sodium (Levothyroxine Sodium 112 Mcg Tablet) 112 mcg PO DAILYBB TASH Stop: 05/28/22 06:29 Last Admin: 04/30/22 06:03 Dose: 112 mcg Documented by: [id number] Admin: 04/29/22 06:37 Dose: 112 mcg Documented by: [id number] Admin: 04/28/22 06:08 Dose: 112 mcg Documented by: [id number] Metoprolol Succinate (Metoprolol Succ 50mg Ext Rel Tab) 100 mg PO NOW STA Stop: 04/27/22 13:54 Last Admin: 04/27/22 14:43 Dose: 100 mg Documented by: [id number] Metoprolol Succinate (Metoprolol Succ 50mg Ext Rel Tab) 100 mg PO BID TASH Stop: 05/27/22 20:59 Last Admin: 04/30/22 08:22 Dose: 100 mg Documented by: [id number] Admin: 04/29/22 20:17 Dose: 100 mg Documented by: [id number] Admin: 04/29/22 07:55 Dose: 100 mg Documented by: [id number] Admin: 04/28/22 20:42 Dose: 100 mg Documented by: [id number] Admin: 04/28/22 08:50 Dose: 100 mg Documented by: [id number] Admin: 04/27/22 21:19 Dose: 100 mg Documented by: [id number] Tamsulosin HCl (Tamsulosin Hcl 0.4 Mg Cap) 0.4 mg PO HS [facility] Stop: 05/27/22 20:59 Last Admin: 04/29/22 20:17 Dose: 0.4 mg Documented by: [id number] Admin: 04/28/22 20:43 Dose: 0.4 mg Documented by: [id number] Admin: 04/27/22 21:19 Dose: 0.4 mg Documented by: [id number] Warfarin Sodium (Warfarin Sod 2.5 Mg Tab) 2.5 mg PO DAILY@1600 TASH Stop: 05/29/22 15:59 Last Admin: 04/29/22 16:46 Dose: 2.5 mg Documented by: [id number] Imaging Data Radiologist's Impression: Abdomen/Pelvis CT 04/27/22 11:[address] WITH IV CONTRAST CT DOSE: 2122.48 mGy.cm HISTORY: Acute GI bleed in a patient with history of known colon cancer GIB, colon CA, anemia TECHNIQUE: Multiaxial CT images of the abdomen and pelvis were performed following the IV administration of 119 cc of Optiray, A dose lowering technique was utilized adhering to the principles of ALARA. COMPARISON STUDY: CT abdomen and pelvis 12/20/2021 FINDINGS: Cardiomegaly with partially imaged pacer leads. Trace pleural effusions. There is mild subsegmental bibasilar atelectasis. No pneumatosis or pneumoperitoneum. The spleen is enlarged measuring up to 17 cm in length. The liver is diffusely heterogeneous and demonstrates marginal nodularity suggestive of cirrhosis. Ill-defined hypodense lesion within the hepatic dome is redemonst rated measuring 6.1 x 4.5 cm, previously measured at approximately 5.5 cm. There is patency of the hepatic and portal veins. Unremarkable adrenal glands and gallbladder. Mild interstitial edema of the pancreas. Atrophic right kidney with multifocal cortical scarring and parenchymal thinning. Cysts of the kidneys measure up to 4.6 cm on the right. 3.7 cm left renal cyst demonstrates mild marginal/septal calcifications. 5 mm nonobstructing calculus of the interpolar left kidney. 4 mm nonobstructing calculus of the superior pole right kidney. No ureteral calculi or hydronephrosis. Partial distention of the urinary bladder with mild wall thickening. Atherosclerosis of the aorta without aneurysm. There is no lymphadenopathy. There is diffuse mesenteric edema with trace perisplenic ascites. Pararectal inflammation. There is diffuse wall thickening of the distal sigmoid and rectum with suggested wall irregularity noted within the mid rectum. No obstruction. Mild colonic diverticulosis. Normal appendix. No acute fracture. Discectomy with posterior interbody otto and screw fusion at L4-L5. No destructive bone lesions identified. IMPRESSION: 1. Circumferential wall thickening of the distal sigmoid and rectum is redemonstrated which may correlate with the patient's reportedly known gentry gnancy. There is no bowel obstruction or pneumoperitoneum. 2. Trace pleural effusions with trace ascites and mild diffuse mesenteric edema. Additionally, there is questioned interstitial edema within the pancreas. Correlate with lipase level to exclude acute pancreatitis. 3. Cirrhotic liver with splenomegaly suggestive of portal venous hypertension. 4. Ill-defined suspicious mass within the hepatic dome measures up to 6.1 cm, mildly increased in size from the prior study. 5. Nonobstructing bilateral nephrolithiasis. 6. Additional findings as above. ACT 112: Negative or not required by law. The above report was generated using voice recognition software. It may contain grammatical, syntax or spelling errors. Electronically signed by: Nick Porras M.D. 04/27/2022 12:31 PM Blood Pressure Blood Pressure Findings: Elevated blood pressure Blood Pressure Disposition: further management by hospitalist Discharge Plan Visit Data Chief Complaint: Rectal Bleed Stated Complaint: COLON CANCER, RECTAL BLEEDING HEAVILY ED Provider: Caprice Lane Discharge Problem: BRBPR (bright red blood per rectum), Colon cancer, Supratherapeutic INR, Atrial fibrillation, ABLA (acute blood loss anemia) Patient Disposition: Admitted As Inpatient Discharge Instructions Interventions: ED Discharge Assessment Last Done: 04/27/22 13:53 Discharge Problem: Colon cancer Qualifiers: Colon location: unspecified part of colon Qualified Code(s): C18.9 - Malignant neoplasm of colon, unspecified Atrial fibrillation Qualifiers: Atrial fibrillation type: longstanding persistent Qualified Code(s): I48.11 - Longstanding persistent atrial fibrillation
[2022-04-27] MEDS: LACTATED RINGER'S 1,000 ML IV SCH (14:43)
--- NOTE | 2022-04-27 17:01 | CT Scan Report ---
CT angio abdomen pelvis w con CLINICAL HISTORY: eval for source of bleeding TECHNIQUE: Multidetector row helical CT of the abdomen and pelvis was performed, following intravenou s administration of iodinated contrast. No oral contrast was administered. Automated dose lowering te chniques and/or adjustment according to patient size were utilized for this exam. Coronal and sagitta l reformations were obtained. MIP and 3D volume rendered reconstructions were obtained. CT DOSE: 2026.55 mGy.cm Comparison: None available at the time of this dictation. FINDINGS: Lower chest: Cardiomegaly is partially visualized. Groundglass opacities are seen in the bilateral l ungs which may represent atelectasis or infectious/inflammatory process. Liver: Nodular contour of the liver is seen compatible with cirrhosis. Stable hypodensity in the dome of the liver. Gallbladder and biliary tree: No calcified gallstones. Normal caliber wall. No intra- or extrahepatic biliary ductal dilation. Pancreas: Unremarkable, no focal lesions. Spleen: Splenomegaly is noted, the spleen measures 16 cm in length. Adrenals: Unremarkable. Kidneys and ureters: Multiple renal cysts are seen. The kidneys are atrophic. Bladder: Unremarkable. Reproductive organs: Unremarkable. Bowel: There is thickening and loss of haustra in the sigmoid colon. No evidence of perforation is se en. Lymph nodes Retroperitoneal: Unremarkable. Mesenteric: Unremarkable. Pelvic: Unremarkable. Peritoneum: Normal. Abdominal wall: A fat-containing umbilical hernia is seen. Bones: Posterior fixation hardware is seen. CT angiogram: The abdominal aortic contours appear intact without evidence of aneurysmal dilatation a nd/or dissection. There is evidence of scattered atherosclerotic calcifications of the abdominal aor ta and its major branches. The origins of the celiac axis, superior mesenteric, inferior mesenteric and bilateral renal arteries are patent. IMPRESSION: 1. Surgical ventral wall thickening of the distal sigmoid colon and rectum is seen. This is favored over the known malignancy which may also correlate with rectal bleeding. 2. Cirrhosis and splenomegaly. Hepatic hypodense mass is again seen, likely enlarged from prior exam s. Malignancy cannot be excluded. 3. Cardiomegaly and bilateral atelectasis, aspiration, and/or pneumonia. 4. No evidence of pancreatitis in this contrast exam. 5. Additional findings as above. ACT 112: Negative or not required by law. Electronically signed by: Ru Daily M.D. 04/27/2022 5:00 PM
[2022-04-27 18:18] LABS: Hematocrit (blood only) 29.9 % (42-52); Hemoglobin 9.7 g/dL (14.0-18.0)
[2022-04-27 18:21] LABS: INR 4.3 (0.9-1.1); Prothrombin Time 42.5 Seconds (9.0-12.0)
--- NOTE | 2022-04-27 18:43 | Communication Note ---
Date of Service: April 27, 2022 Gastroenterology services recommended to transfer for IR. Spoke with Triage Physician Dr. Miguel Gaytan. Also spoke to GI services and IR services at [facility]. Recommendation was to obtain CT angiogram of abdomen pelvis. Findings: Redemonstration of wall thickening in the distal sigmoid colon and rectum is seen. This is favored to represent the known malignancy which may also be the site of rectal bleeding. No additional evidence of active GI bleeding is seen. Images were pushed to [place] and reviewed by triage physician and IR. At this point in time they do not see any active bleeding and do not feel acute IR services are warranted. Repeat hemoglobin is 9.7 and INR is 4.3. Patient has not had any further rectal bleeding since admission. He also remains hemodynamically stable. We will continue to monitor hemoglobin, INR and rectal bleeding. If further bleeding occurs recommendation is to give additional vitamin K, Kcentra and call transfer center. Initial transfer has been closed. Patient and daughter have been updated and agree with above. Discussed with Attending Dr. Syed. Will give clear liquids tonight, npo after midnight in event status change. Joe Black PA-C
[2022-04-27] MEDS: ISOSORBIDE MONO EXTENDED REL 30 MG TABCR PO SCH (21:18)
[2022-04-27] MEDS: METOPROLOL SUCC 50MG EXT REL TAB PO SCH (21:19)
[2022-04-27] MEDS: TAMSULOSIN HCL 0.4 MG CAP PO SCH (21:19)
[2022-04-27] MEDS: AMIODARONE 200 MG TAB PO SCH (21:20)
[2022-04-28 00:54] LABS: Hematocrit (blood only) 29.6 % (42-52); Hemoglobin 9.6 g/dL (14.0-18.0)
[2022-04-28 00:55] LABS: INR 2.5 (0.9-1.1); Prothrombin Time 25.8 Seconds (9.0-12.0)
[2022-04-28] MEDS: LACTATED RINGER'S 1,000 ML IV SCH ×2 (04:18→15:18)
[2022-04-28] MEDS: LEVOTHYROXINE SODIUM 112 MCG TABLET PO SCH (06:08)
[2022-04-28 06:12] LABS: Basophils # (auto) 0.02 K/uL (0-0.2); Basophils % (auto) 0.5 %; Eosinophils # (auto) 0.17 K/uL (0-0.5); Eosinophils % (auto) 4.2 %; Hematocrit (blood only) 29.7 % (42-52); Hemoglobin 9.5 g/dL (14.0-18.0); Immature Granulocytes # (auto) 0.02 K/uL (0.00-0.02); Immature Granulocytes % (auto) 0.5 %; Lymphocytes # (auto) 0.36 K/uL (1.2-3.4); Lymphocytes % (auto) 8.9 %; Mean Corpuscular Hemoglobin 29.6 pg (25-34); Mean Corpuscular Volume 92.5 fL (80-100); Mean Platelet Volume 9.9 fL (7.4-10.4); Monocytes # (auto) 0.51 K/uL (0.11-0.59); Monocytes % (auto) 12.7 %; Neutrophils # (auto) 2.95 K/uL (1.4-6.5); Neutrophils % (auto) 73.2 %; Platelet Count 122 K/uL (130-400); RDW Coefficient of Variation 19.4 % (11.5-14.5); RDW Standard Deviation 62.6 fL (36.4-46.3); Red Blood Count 3.21 M/uL (4.7-6.1); White Blood Count 4.03 K/uL (4.8-10.8)
[2022-04-28 06:52] LABS: Albumin Level 2.7 gm/dl (3.4-5.0); BUN Creatinine Ratio 11.6 (10-20); Bilirubin,Total 1.4 mg/dl (0.2-1.0); Calcium 7.8 mg/dl (8.5-10.1); Est GFR (African American) 68.4 ml/min; Globulin 2.8 gm/dl (2.5-4.0); Magnesium 1.7 mg/dl (1.7-2.4); Potassium 4.2 mmol/L (3.5-5.1); Total Protein 5.5 gm/dl (6.0-8.3)
[2022-04-28 07:02] LABS: INR 2.1 (0.9-1.1); Prothrombin Time 21.3 Seconds (9.0-12.0)
[2022-04-28] MEDS: FERROUS SULFATE 325 MG TAB PO SCH (08:50)
[2022-04-28] MEDS: METOPROLOL SUCC 50MG EXT REL TAB PO SCH ×2 (08:50→20:42)
[2022-04-28] MEDS: AMIODARONE 200 MG TAB PO SCH ×2 (08:50→20:42)
[2022-04-28 12:20] LABS: Basophils # (auto) 0.02 K/uL (0-0.2); Basophils % (auto) 0.5 %; Eosinophils # (auto) 0.18 K/uL (0-0.5); Eosinophils % (auto) 4.5 %; Hematocrit (blood only) 28.7 % (42-52); Hemoglobin 9.1 g/dL (14.0-18.0); Immature Granulocytes # (auto) 0.01 K/uL (0.00-0.02); Immature Granulocytes % (auto) 0.3 %; Lymphocytes # (auto) 0.56 K/uL (1.2-3.4); Lymphocytes % (auto) 14.1 %; Mean Corpuscular Hemoglobin 29.5 pg (25-34); Mean Corpuscular Hgb Conc 31.7 g/dL (32-36); Mean Corpuscular Volume 93.2 fL (80-100); Mean Platelet Volume 10.6 fL (7.4-10.4); Monocytes # (auto) 0.32 K/uL (0.11-0.59); Monocytes % (auto) 8.1 %; Neutrophils # (auto) 2.87 K/uL (1.4-6.5); Neutrophils % (auto) 72.5 %; Platelet Count 117 K/uL (130-400); RDW Coefficient of Variation 19.1 % (11.5-14.5); Red Blood Count 3.08 M/uL (4.7-6.1); White Blood Count 3.96 K/uL (4.8-10.8)
[2022-04-28 12:26] LABS: INR 1.9 (0.9-1.1); Prothrombin Time 19.1 Seconds (9.0-12.0)
--- NOTE | 2022-04-28 13:03 | Hospitalist Progress Note ---
Date of Service April 28, 2022 Assessment & Plan (1) BRBPR (bright red blood per rectum): (2) Colon cancer: (3) Anemia: (4) Supratherapeutic INR: Plan: Per admitting service notes with addendum: This is a 61 y/o M with PMH mixed ischemic and nonischemic cardiomyopathy, v- tach, s/p ICD, CAD, h/o left ventricular apical thrombus, paroxysmal atrial fibrillation anticoagulated on warfarin, HTN, dyslipidemia, CKD III, MARIANNA, hypothyroidism, anxiety, elevated LFT's, recently diagnosed colon cancer who presents to ED due to rectal bleeding x3 days. Hematochezia Sigmoid/Rectal Colon Cancer - currently undergoing neoadjuvant chemo, completed XRT Supratherapeutic INR Anemia - 2/2 to colon cancer and acute GI loss admit to tele consult gastroenterology Type and Cross, place 2 units on hold H&H q6h s/p 5mg Vit K repeat h/h and vit K @ 1800 NPO gentle IVF, LR @ 80cc/hr after further discussion with GI colleagues they recommend transfer of patient to tertiary facility for IR services Discussed with patient and daughter who wish to pursue [facility] Pt colorectal surgeon is Dr. Mosquera at [facility] hold warfarin/asa 04/28 Resolving Hemoglobin remaining stable around 9 INR 2.1 Will advance diet, patient requesting to advance diet as well Repeat hemoglobin and INR this afternoon History of left ventricular apical thrombus Will discuss with GI when Coumadin can be restarted Sigmoid/Rectal Colon Ca, T3 follows medical onc Dr. Spence, currently receiving Capox therapy, last tx 3 weeks ago completed Capecitabine concurrent with XRT 01/08/[address] Mosquera [facility] with colorectal no evidence of mets, CT today showed Ill-defined suspicious mass within the hepatic dome measures up to 6.1 cm, mildly increased in size from the prior study. Previously liver bx showed severe hepatic steatosis and marked bridging fibrosis with occasional nodule, but does not appear to be a target bx. Will likely need bx of particular lesion to r/o mets Ischemic cardiomyopathy ICD in place Paroxysmal V. tach PAF h/o L ventricular apical thrombus CAD HTN Continue amiodarone, Imdur and metoprolol Patient did not take morning meds will give one-time dose of amiodarone and metoprolol now Hold ASA, warfarin, Lasix and hydralazine As needed IV hydralazine for blood pressure greater than 160 pt last echo 10/21/21 revealed EF 25 to 30%, focal akinesis with mild expansion of the mid and apical septum, mild diffuse hypokinesis in all other segments, grade 1 diastolic dysfunction, no valvular disease Follows [facility] cardiology 04/28 Euvolemic Elevated troponin high sensitive pt w/o chest pain, repeat in 2 hours relatively unchanged Remained flat in the 20s CKD -3 baseline cr 1.4-1.5 bun/cr stable avoid nephrotoxic agents hold lasix for now MARIANNA Cpap at HS DVT ppx: SCDS, hold warfarin for now and asa, follow inr Dispo: Anticipate discharge to home when medically stable PCP: Jennifer FULL CODE plan of care discussed with patient in detail and at length all questions answered he is understanding, agreeable, comfortable with the plan of care Admission and Anticipated Discharge Date Admission Date: April 27, 2022 Subjective Follow-up for GI bleed, supratherapeutic INR, colon cancer, etc. Seen resting in bed, comfortable in good spirits States he had a bowel movement today with little amount of blood, manager talent than yesterday No abdominal pain, nausea or vomiting, chest pain, palpitations, dizziness, shortness of breath No other symptoms Review of Systems Review of Systems: all noted and negative except for above Physical Exam Physical Exam: General- oriented x 3, not in distress, speaks in sentences with no effort or accessory muscle use Head- atraumatic Eyes- PERRL, EOMI, anicteric ENT- oropharynx clear Neck- supple, no JVD, no adenopathy, no thyromegaly; carotids +2/2, no bruits appreciated Lungs- clear to auscultation bilaterally, no rales/wheezes Heart- normal rate, regular rhythm; no murmur, no gallop, no rub appreciated Abdomen- normal bowel sounds, nondistended, soft, nontender, no masses or hepatosplenomegaly Extremities- no pretibial edema, no calf tenderness; peripheral pulses intact Neuro- alert, oriented x 3; CN 2-12 grossly intact; motor 5/5 bilaterally;sensation 100% on all extremities; no other gross focal neurologic deficits Skin- warm & dry Results & Data Results & Data ([facility]) Vital Signs (Past 12 Hours) Vital Signs Temp Pulse Pulse Resp BP Pulse Ox 04/28/22 12:00 36.7 C 72 18 115/60 96 04/28/22 08:00 36.9 C 79 16 116/60 94 04/28/22 07:59 64 04/28/22 03:09 37.0 C 56 L 20 107/57 L 96 all noted and reviewed including below
[2022-04-28] MEDS: TAMSULOSIN HCL 0.4 MG CAP PO SCH (20:43)
[2022-04-28] MEDS: ISOSORBIDE MONO EXTENDED REL 30 MG TABCR PO SCH (20:43)
[2022-04-29 06:12] LABS: Basophils # (auto) 0.01 K/uL (0-0.2); Basophils % (auto) 0.2 %; Eosinophils # (auto) 0.16 K/uL (0-0.5); Hematocrit (blood only) 28.1 % (42-52); Immature Granulocytes # (auto) 0.01 K/uL (0.00-0.02); Immature Granulocytes % (auto) 0.2 %; Lymphocytes # (auto) 0.51 K/uL (1.2-3.4); Lymphocytes % (auto) 12.6 %; Mean Corpuscular Hemoglobin 29.8 pg (25-34); Mean Platelet Volume 10.7 fL (7.4-10.4); Monocytes % (auto) 12.3 %; Neutrophils # (auto) 2.86 K/uL (1.4-6.5); Neutrophils % (auto) 70.7 %; Platelet Count 120 K/uL (130-400); RDW Standard Deviation 63.2 fL (36.4-46.3); Red Blood Count 3.02 M/uL (4.7-6.1); White Blood Count 4.05 K/uL (4.8-10.8)
[2022-04-29 06:32] LABS: ALC (manual) 0.17 K/uL (1.2-3.4); ANC (manual) 3.42 K/uL (1.4-6.5); Anisocytosis Present; Basophils # (manual) 0.04 K/uL (0-0.2); Basophils % (manual) 0.9 %; Eosinophils # (manual) 0.17 K/uL (0-0.5); Eosinophils % (manual) 4.3 %; Lymphocytes # (manual) 0.17 K/uL (1.2-3.4); Lymphocytes % (manual) 4.3 %; Monocytes # (manual) 0.24 K/uL (0.11-0.59); Neutrophils # (manual) 3.42 K/uL (1.4-6.5); Neutrophils % (manual) 84.5 %; Polychromasia 1+
[2022-04-29] MEDS: LEVOTHYROXINE SODIUM 112 MCG TABLET PO SCH (06:37)
[2022-04-29 06:55] LABS: BUN Creatinine Ratio 11.9 (10-20); Calcium 7.5 mg/dl (8.5-10.1); Creatinine Clr Calc Pharmacy 84.3 ml/min; Est GFR (African American) 70.4 ml/min; Est GFR (Non-African American) 60.7 ml/min; Potassium 3.9 mmol/L (3.5-5.1)
[2022-04-29 07:42] LABS: INR 1.6 (0.9-1.1); Prothrombin Time 16.7 Seconds (9.0-12.0)
[2022-04-29] MEDS: METOPROLOL SUCC 50MG EXT REL TAB PO SCH ×2 (07:55→20:17)
[2022-04-29] MEDS: FERROUS SULFATE 325 MG TAB PO SCH (07:55)
[2022-04-29] MEDS: AMIODARONE 200 MG TAB PO SCH ×2 (07:56→20:17)
[2022-04-29 12:52] LABS: Basophils # (auto) 0.01 K/uL (0-0.2); Basophils % (auto) 0.3 %; Eosinophils # (auto) 0.15 K/uL (0-0.5); Eosinophils % (auto) 4.3 %; Hematocrit (blood only) 27.5 % (42-52); Hemoglobin 8.8 g/dL (14.0-18.0); Immature Granulocytes # (auto) 0.01 K/uL (0.00-0.02); Immature Granulocytes % (auto) 0.3 %; Lymphocytes # (auto) 0.47 K/uL (1.2-3.4); Lymphocytes % (auto) 13.4 %; Mean Corpuscular Hemoglobin 29.6 pg (25-34); Mean Corpuscular Volume 92.6 fL (80-100); Mean Platelet Volume 10.9 fL (7.4-10.4); Monocytes # (auto) 0.38 K/uL (0.11-0.59); Monocytes % (auto) 10.8 %; Neutrophils % (auto) 70.9 %; Platelet Count 106 K/uL (130-400); RDW Coefficient of Variation 19.1 % (11.5-14.5); RDW Standard Deviation 62.2 fL (36.4-46.3); Red Blood Count 2.97 M/uL (4.7-6.1); White Blood Count 3.52 K/uL (4.8-10.8)
[2022-04-29] MEDS ORDERED: WARFARIN SOD 2.5 MG TAB PO SCH (16:00)
--- NOTE | 2022-04-29 16:15 | Hospitalist Progress Note ---
Date of Service April 29, 2022 Assessment & Plan (1) BRBPR (bright red blood per rectum): (2) Colon cancer: (3) Anemia: (4) Supratherapeutic INR: Plan: Per admitting service notes with addendum: This is a 61 y/o M with PMH mixed ischemic and nonischemic cardiomyopathy, v- tach, s/p ICD, CAD, h/o left ventricular apical thrombus, paroxysmal atrial fibrillation anticoagulated on warfarin, HTN, dyslipidemia, CKD III, MARIANNA, hypothyroidism, anxiety, elevated LFT's, recently diagnosed colon cancer who presents to ED due to rectal bleeding x3 days. Hematochezia Sigmoid/Rectal Colon Cancer - currently undergoing neoadjuvant chemo, completed XRT Supratherapeutic INR Anemia - 2/2 to colon cancer and acute GI loss admit to tele consult gastroenterology Type and Cross, place 2 units on hold H&H q6h s/p 5mg Vit K repeat h/h and vit K @ 1800 NPO gentle IVF, LR @ 80cc/hr after further discussion with GI colleagues they recommend transfer of patient to tertiary facility for IR services Discussed with patient [facility] is Dr. Mosquera at [facility] hold warfarin/asa 04/29 Resolving Hemoglobin remaining stable around 9 INR 1.6 Resume Coumadin cautiously, 2.5 mg today Monitor for GI bleeding Repeat hemoglobin and INR tomorrow History of left ventricular apical thrombus Resume Coumadin today Goal INR 2-3 Sigmoid/Rectal Colon Ca, T3 follows medical onc Dr. Spence, currently receiving Capox therapy, last tx 3 weeks ago completed Capecitabine concurrent with XRT 01/08/[address] [facility] with colorectal no evidence of mets, CT today showed Ill-defined suspicious mass within the hepatic dome measures up to 6.1 cm, mildly increased in size from the prior study. Previously liver bx showed severe hepatic steatosis and marked bridging fibrosis with occasional nodule, but does not appear to be a target bx. Will likely need bx of particular lesion to r/o mets Ischemic cardiomyopathy ICD in place Paroxysmal V. tach PAF h/o L ventricular apical thrombus CAD HTN Continue amiodarone, Imdur and metoprolol Patient did not take morning meds will give one-time dose of amiodarone and metoprolol now Hold ASA, warfarin, Lasix and hydralazine As needed IV hydralazine for blood pressure greater than 160 pt last echo 10/21/21 revealed EF 25 to 30%, focal akinesis with mild expansion of the mid and apical septum, mild diffuse hypokinesis in all other segments, grade 1 diastolic dysfunction, no valvular disease Follows [facility] cardiology 04/29 Euvolemic Elevated troponin high sensitive pt w/o chest pain, repeat in 2 hours relatively unchanged Remained flat in the 20s CKD -3 baseline cr 1.4-1.5 bun/cr stable avoid nephrotoxic agents MARIANNA Cpap at HS DVT ppx: Coumadin resumed Dispo: Anticipate discharge to home when medically stable, hopefully tomorrow PCP: Jennifer FULL CODE plan of care discussed with patient in detail and at length all questions answered he is understanding, agreeable, comfortable with the plan of care Admission and Anticipated Discharge Date Admission Date: April 27, 2022 Subjective ff up for GI bleed, colon CA, supratherapeutic INR, etc Seen resting in bed, comfortable In good spirits No abdominal pain No bowel movement since yesterday No nausea vomiting Feels mild lightheadedness but otherwise no dizziness, chest pain, shortness of breath No other symptoms Review of Systems Review of Systems: all noted and negative except for above Physical Exam Physical Exam: General- oriented x 3, not in distress, speaks in sentences with no effort or accessory muscle use Eyes- anicteric Neck- no JVD Lungs- clear breath sounds bilaterally, no rales/wheezes Heart- normal rate, regular rhythm; no murmurs Abdomen- normal bowel sounds, nondistended, soft, nontender Extremities- no pretibial edema, no calf tenderness Neuro- alert, oriented x 3; no gross focal neurologic deficits Skin- warm & dry Results & Data Results & Data ([facility]) Vital Signs (Past 12 Hours) Vital Signs Temp Pulse Pulse Resp BP Pulse Ox 04/29/22 16:00 36.5 C 64 18 163/87 H 97 04/29/22 15:05 64 04/29/22 11:47 36.5 C 62 14 172/94 H 94 04/29/22 07:53 36.7 C 67 16 119/67 93 04/29/22 07:15 60 all noted and reviewed including below
[2022-04-29] MEDS: ISOSORBIDE MONO EXTENDED REL 30 MG TABCR PO SCH (20:17)
[2022-04-29] MEDS: TAMSULOSIN HCL 0.4 MG CAP PO SCH (20:17)
[2022-04-30] MEDS: LEVOTHYROXINE SODIUM 112 MCG TABLET PO SCH (06:03)
[2022-04-30 08:05] LABS: Hematocrit (blood only) 26.5 % (42-52); Hemoglobin 8.5 g/dL (14.0-18.0); Mean Corpuscular Hemoglobin 29.8 pg (25-34); Mean Corpuscular Hgb Conc 32.1 g/dL (32-36); RDW Standard Deviation 62.2 fL (36.4-46.3); Red Blood Count 2.85 M/uL (4.7-6.1); White Blood Count 3.42 K/uL (4.8-10.8)
[2022-04-30] MEDS: FERROUS SULFATE 325 MG TAB PO SCH (08:22)
[2022-04-30] MEDS: AMIODARONE 200 MG TAB PO SCH (08:22)
[2022-04-30] MEDS: METOPROLOL SUCC 50MG EXT REL TAB PO SCH (08:22)
[2022-04-30 08:24] LABS: INR 1.7 (0.9-1.1); Prothrombin Time 17.2 Seconds (9.0-12.0)
[2022-04-30 08:27] LABS: Basophils # (auto) 0.01 K/uL (0-0.2); Basophils % (auto) 0.3 %; Eosinophils # (auto) 0.19 K/uL (0-0.5); Eosinophils % (auto) 5.6 %; Immature Granulocytes # (auto) 0.02 K/uL (0.00-0.02); Immature Granulocytes % (auto) 0.6 %; Lymphocytes % (auto) 14.6 %; Mean Platelet Volume 9.8 fL (7.4-10.4); Monocytes # (auto) 0.46 K/uL (0.11-0.59); Monocytes % (auto) 13.5 %; Neutrophils # (auto) 2.24 K/uL (1.4-6.5); Neutrophils % (auto) 65.4 %; Platelet Count 94 K/uL (130-400)
[2022-04-30 08:28] LABS: Anisocytosis Present; Platelet Estimate Decreased (Normal)
[2022-04-30 12:13] VITALS: TEMP 98.2; O2SAT 97
--- NOTE | 2022-04-30 15:37 | Hospitalist Progress Note ---
Date of Service April 30, 2022 Assessment & Plan (1) BRBPR (bright red blood per rectum): (2) Colon cancer: (3) Anemia: (4) Supratherapeutic INR: Plan: Per admitting service notes with addendum: This is a 61 y/o M with PMH mixed ischemic and nonischemic cardiomyopathy, v- tach, s/p ICD, CAD, h/o left ventricular apical thrombus, paroxysmal atrial fibrillation anticoagulated on warfarin, HTN, dyslipidemia, CKD III, MARIANNA, hypothyroidism, anxiety, elevated LFT's, recently diagnosed colon cancer who presents to ED due to rectal bleeding x3 days. Hematochezia Sigmoid/Rectal Colon Cancer - currently undergoing neoadjuvant chemo, completed XRT Supratherapeutic INR Anemia - 2/2 to colon cancer and acute GI loss admit to tele consult gastroenterology Type and Cross, place 2 units on hold H&H q6h s/p 5mg Vit K repeat h/h and vit K @ 1800 NPO gentle IVF, LR @ 80cc/hr after further discussion with GI colleagues they recommend transfer of patient to tertiary facility for IR services Discussed with patient and daughter who wish to pursue [facility] Pt colorectal surgeon is Dr. Mosquera at [facility] hold warfarin/asa 04/30 recurrence of hematochezia x 2 Hemoglobin 8.5 INR 1.7 HOLD coumadin repeat H&H discussed with GI service recommend transfer to [facility] History of left ventricular apical thrombus INR 1.7 hold coumadin again as patient has recurrence of hematochezia Sigmoid/Rectal Colon Ca, T3 follows medical onc Dr. Spence, currently receiving Capox therapy, last tx 3 weeks ago completed Capecitabine concurrent with XRT 01/08/[address] Mosquera [facility] with colorectal no evidence of mets, CT today showed Ill-defined suspicious mass within the hepatic dome measures up to 6.1 cm, mildly increased in size from the prior study. Previously liver bx showed severe hepatic steatosis and marked bridging fibrosis with occasional nodule, but does not appear to be a target bx. Will likely need bx of particular lesion to r/o mets Ischemic cardiomyopathy ICD in place Paroxysmal V. tach PAF h/o L ventricular apical thrombus CAD HTN Continue amiodarone, Imdur and metoprolol Patient did not take morning meds will give one-time dose of amiodarone and metoprolol now Hold ASA, warfarin, Lasix and hydralazine As needed IV hydralazine for blood pressure greater than 160 pt last echo 10/21/21 revealed EF 25 to 30%, focal akinesis with mild expansion of the mid and apical septum, mild diffuse hypokinesis in all other segments, grade 1 diastolic dysfunction, no valvular disease Follows [facility] cardiology 04/30 Euvolemic Elevated troponin high sensitive pt w/o chest pain, repeat in 2 hours relatively unchanged Remained flat in the 20s CKD -3 baseline cr 1.4-1.5 bun/cr stable avoid nephrotoxic agents MARIANNA Cpap at HS DVT ppx: SCDS only Dispo: Anticipate discharge to home when medically stable, hopefully tomorrow PCP: Jennifer FULL CODE plan of care discussed with patient in detail and at length all questions answered he is understanding, agreeable, comfortable with the plan of care Admission and Anticipated Discharge Date Admission Date: April 27, 2022 Subjective ff up for hematochezia, colon Ca, on coumadin, etc seen resting in bed, not in distress states he feels ok overall reports 2 episodes of bright red blood with stools today no abdominal pain ,nausea/vomiting no chest pain, dyspnea, palpitations, dizziness no other symptoms Review of Systems Review of Systems: all noted and negative except for above Physical Exam Physical Exam: General- oriented x 3, not in distress, speaks in sentences with no effort or accessory muscle use Eyes- anicteric Neck- no JVD Lungs- clear BS bilaterally, no rales/wheezes Heart- normal rate, regular rhythm; no murmurs Abdomen- normal bowel sounds, nondistended, soft, no tenderness Extremities- no pretibial edema, no calf tenderness Neuro- alert, oriented x 3; no gross focal neurologic deficits Skin- warm & dry Results & Data Results & Data ([facility]) Vital Signs (Past 12 Hours) Vital Signs Temp Pulse Pulse Resp BP Pulse Ox 04/30/22 15:04 60 04/30/22 12:12 36.8 C 69 16 145/69 H 97 04/30/22 08:19 37.0 C 63 16 158/93 H 93 04/30/22 07:39 63 all noted and reviewed including below
[2022-04-30 16:47] VITALS: PULSE 78
--- NOTE | 2022-04-30 16:53 | Gastroenterology Progress Note ---
Date of Service April 30, 2022 Assessment & Plan Admission and Anticipated Discharge Date Admission Date: April 27, 2022 Subjective GI recalled for recurrent hematochezia. His initial CTA did not show active blee ding hence was not transferred to [facility]. He needs Coumadin due to apical thrombus. Given the complexity now with need to continue AC without interruption and persistent cancer related GI bleeding which typically would not respond well to endoscopic therapeutic interventions, I recommend transfer to colorectal surgery service at [facility] as the best option for him now is a surgical resection. Please recall GI if needed. Results & Data ([facility]) Vital Signs (Past 12 Hours) Vital Signs Temp Pulse Pulse Resp BP Pulse Ox 04/30/22 15:04 60 04/30/22 14:00 36.8 C 78 18 131/70 97 04/30/22 12:12 36.8 C 69 16 145/69 H 97 04/30/22 08:19 37.0 C 63 16 158/93 H 93 04/30/22 07:39 63
[2022-04-30 16:57] LABS: Hematocrit (blood only) 28.8 % (42-52); Hemoglobin 9.2 g/dL (14.0-18.0)
[2022-04-30 19:09] VITALS: BP 127/68
== END 2022-04-30 19:41 | disposition short-term general hospital (02) | DRG 375 ==
LOC: ED 09:40 → 2E 12:43 → SUATTDRO 12:43 → 2E 13:53

== ENCOUNTER 2022-05-13 12:36 | Inpatient (IN) ==
--- NOTE | 2022-05-13 13:07 | Emergency Department Note ---
Impression & Plan Symptomatic anemia, Colon cancer, Supratherapeutic INR, COVID-19, Weakness, Acute GI bleeding ED Provider Note NAME: SEJAL FENTON AGE: 61 SEX: M : 1960 ARRIVES VIA: Walk-In INFORMANT: Patient ED PROVIDER(S): Jono Alexis DO CHIEF COMPLAINT: COVID-positive HPI: Patient is a 61-year-old male with a past medical history colon cancer diagnosed in October, acute blood loss anemia, ventricular tachycardia, paroxysmal A. fib, ischemic cardiomyopathy, CKD, hypertension hypothyroid, who presents to the ER for cough and congestion. Symptoms started about 2 days ago. Patient denies any headache or change in vision. He does have shortness of breath and believes that slightly worse than usual. No chest pain. No dysuria, urgency, or frequency. No other exacerbating or remitting factors. He notes that he is very weak waxes and wanes intermittently. ROS: See above HPI for pertinent positives & negatives. A total of 10 systems reviewed and were otherwise negative. PAST MEDICAL HISTORY:See Below PAST SURGICAL HISTORY:See Below FAMILY HISTORY:See Below SOCIAL HISTORY:See Below HOME MEDICATIONS:See Below ALLERGIES:See Below VITALS:See Below PHYSICAL EXAMINATION: GENERAL: Sitting up in bed, alert, well appearing, well nourished, no distress, non-toxic EYE EXAM: normal conjunctiva. PERRL and EOM's grossly intact. OROPHARYNX: no exudate, no erythema, lips, buccal mucosa, and tongue normal and mucous membranes are moist NECK: supple, no nuchal rigidity, no adenopathy, non-tender LUNGS: Clear to auscultation. Normal chest wall mechanics HEART: no murmurs, S1 normal and S2 normal ABDOMEN: abdomen soft, non-tender, normo-active bowel sounds, no masses, no rebound or guarding. RECTAL: small amount of bright red blood. no stool UPPER EXTREMITIES: upper extremities are grossly normal. LOWER EXTREMITIES: No pitting edema. NEURO EXAM: Normal sensorium, cranial nerves II-XII grossly intact, normal speech, no gross weakness of arms, no gross weakness of legs. MEDICAL DECISION MAKING: Patient is a 61-year-old male with a past medical history of rectal carcinoma on long-term anticoagulation presents the ER COVID-positive with a past medical history of cardiomyopathy, V. tach status post ICD, CAD with left ventricle apical thrombus, A. fib on Coumadin, hypertension, hyperlipidemia, CAD, CKD, MARIANNA and hypothyroidism and rectal cancer status post radiation completed on 01/08/2022 who was [place] [facility] [place] [facility] [place] secondary to sigmoid/rectal cancer. His bleeding resolved at that time and he was discharged without any significant intervention. Today presents as he is COVID-positive and his PCP sent him in for treatment for COVID. He was dizzy and lightheaded intermittently and he is found to be slightly anemic with his hemoglobin of 7 and mildly hypotensive with systolics in the 90s which came out with gentle hydration into the low 100s. He was typed and crossed and consented and given 1 unit of PRBCs while in the ER. He notes he does not have any black stools but has darker brown stools and was having intermittently bright red blood per rectum for about a week which has now improved. Does have a history of radiation and known cancer and this is clearly likely with Coumadin. His INR is slightly up at this time. He has a mild pancytopenia with a leukopenia, anemia and thrombocytopenia at 119. INR was 3.7. Creatinine 1.5. LFTs were unremarkable. Troponin was mildly up at 27 likely secondary to the ischemic cardiomyopathy and mild hypotension which is now resolved. Chest x-ray was clean. EKG was nondiagnostic. Case was discussed with Dr. Petit the hospitalist service who noted that they would prefer to transfer the patient. Currently Nitesh is at a 24-hour plus weight for any stepdown bed or med telemetry. Did discuss this with the hospitalist service. Will defer to them for further treatment of they recommended holding on reversal of Coumadin. Triage Nursing notes reviewed. Limited review of prior medical records performed Vital Signs: reviewed and remarkable for no significant abnormalities Differential diagnosis: Infection, dehydration, metabolic abnormality, hypo/hyperglycemia, electrolyte disturbance, anemia, hypoxia, cardiac sources, intracerebral event, toxicologic, neurologic, as well as other pathologies. ER treatment provided: See below Diagnostics interpreted by me: ECG: Atrial paced rate of 63 Normal axis No PVCs Septal Q waves T wave version in the lateral leads In comparison to previous on April 27, 2022 new T wave inversion in the lateral leads Cardiac Monitoring: An order was placed for continuous cardiac monitoring. The monitor shows a rate of 68 with paced rhythm. Laboratory studies: As stated above and show below. Imaging studies: Portable AP upright 1 view of the chest is unremarkable Consultation(s): Discussed with Dr. Petit as described above Procedures: none Critical Care: I have personally spent 32 minutes of critical care time in the direct management of this patient. This includes bedside care, interpretation of diagnostic studies, and testing, discussion with consultants, patient, and family members, and other required patient management activities. This 32 minutes is in excess of all separately billable procedures. 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 ICD placed 2013 No VT episodes since 10/2020 per cardio records Current EF 20-25% F/U RADHA GALLO CHF (congestive heart failure) CHF (congestive heart failure) hx/no recent issues Chronic back pain CKD (chronic kidney disease) stage 3, GFR 30-59 ml/min Depression Elevated LFTs Gout History of kidney stones History of ventricular tachycardia Hypertension Hypothyroidism LBBB (left bundle branch block) Incomplete per records Left ventricular aneurysm Dx'ed around 2011- on Coumadin- cardio monitoring Moderate in size and noted to apical and inferior area. Hx of LV apical thrombus Myocardial Infarction 15+ years ago- medically managed On anticoagulant therapy WARFARIN Paroxysmal A-fib Pneumonia Pneumonia HX-2000 Presence of combination internal cardiac defibrillator (ICD) and pacemaker Implanted 2013 (follows with cardiology/Dr. Jaffe/RADHA GALLO) Sleep apnea CPAP SOB (shortness of breath) on exertion ON OCC Surgical History H/O arthroscopic knee surgery multiple on bilateral knees H/O neck surgery History of cardiac cath 2011= NO STENTS History of colonoscopy (~09/15/21) History of cystoscopy History of esophagogastroduodenoscopy (EGD) History of implantable cardioverter-defibrillator (ICD) placement History of laminectomy L4-L5 History of lithotripsy History of lumbar surgery 09/17/19 Grade 1 view Mac 3, magnet placed on L chest wall during procedure History of tonsillectomy Status post uvulopalatopharyngoplasty Family History Father , 54yo Lung cancer Mother , 85yo Alzheimer disease Brother No problems noted. Brother No problems noted. Sister No problems noted. Daughter No problems noted. Daughter No problems noted. Social History Smoking Status: Never smoker Second Hand Exposure: No; Hx Alcohol Use: No Hx Substance Use: No Preferred Language: Japanese Communication Ability: Effective Visual Impairment: Limited Hearing Ability: Normal Brazing Furnace Feeder Required: No Beliefs That Will Affect Care: None marital status: Current Living Situation: Alone Current Living Situation Comment: dtr lives next door current occupational status: disabled Feels Safe at Home: Yes caffeine: No during the past year weight has: decreased > 10 lbs Assistive Devices: CPAP Allergies Allergies Allergy/AdvReac Type Severity Reaction Status Date / Time No Known Allergies Allergy Verified 05/13/22 16:29 Home Meds Home Medications Medication Instructions Recorded Confirmed amiodarone 200 mg tablet 300 mg PO Q12 09/07/19 05/13/22 hydrocodone 5 mg-acetaminophen 325 1 tab PO Q6 PRN 09/07/19 05/13/22 mg tablet levothyroxine 112 mcg tablet 112 mcg PO DAILYBB 01/11/20 05/13/22 nitroglycerin 0.4 mg sublingual 0.4 mg SUBLINGUAL UD PRN 08/13/20 05/13/22 tablet (Nitrostat) isosorbide mononitrate 30 mg 30 mg PO QPM 12/25/20 05/13/22 tablet,extended release 24 hr metoprolol succinate 100 mg 100 mg PO BID 10/20/21 05/13/22 tablet,extended release 24 hr iron,carbonyl 65 mg-vitamin C 125 1 tab PO DAILY 11/14/21 05/13/22 mg tablet,delayed release (Vitron-C) ondansetron HCl 8 mg tablet 8 mg PO Q8H PRN 12/04/21 05/13/22 hydralazine 25 mg tablet 25 mg PO AMHS 04/27/22 05/13/22 capecitabine 500 mg tablet 500 mg PO DIRECTED 05/13/22 05/13/22 warfarin 5 mg tablet 2.5 - 5 mg PO DAILY 05/13/22 05/13/22 Previous Rx's Medication Instructions Recorded ferrous sulfate 325 mg (65 mg 325 mg PO DAILY #30 tab 10/21/21 iron) tablet,delayed release tamsulosin 0.4 mg capsule (Flomax) 0.4 mg PO HS #14 cap 12/20/21 Results & Data (ED) Vital Signs Vital Signs - 24 hr 05/13/22 12:45 05/13/22 13:24 05/13/22 13:30 Temperature 37.1 C Temperature Source Temporal Artery Scan Pulse Rate 71 61 60 Pulse Rate [Exercises] Pulse Rate [Recovery] Pulse Rate [Resting] Pulse Rate from SpO2 Sensor 60 60 Pulse Rhythm Regular Pulse Strength Normal Respiratory Rate 20 21 16 Respiratory Rate [Exercises] Respiratory Rate [Recovery] Respiratory Rate [Resting] Respiratory Effort / Characteristics Non-Labored Respiratory Depth Normal Respiratory Pattern Regular Blood Pressure 126/60 92/46 L Blood Pressure Mean 82 61 Blood Pressure Position Sitting Pulse Oximetry 93 92 92 Pulse Oximetry [Exercises] Pulse Oximetry [Recovery] Pulse Oximetry [Resting] Oxygen Delivery Method Room Air Sepsis Recent Fever Within 48 Hours Yes Sepsis New/Unexplained Change in Mental Status No Sepsis Action Taken by Nursing No Action Required 05/13/22 14:00 05/13/22 14:05 05/13/22 14:30 Temperature Temperature Source Pulse Rate 60 62 60 Pulse Rate [Exercises] Pulse Rate [Recovery] Pulse Rate [Resting] Pulse Rate from SpO2 Sensor 60 60 Pulse Rhythm Pulse Strength Respiratory Rate 23 18 Respiratory Rate [Exercises] Respiratory Rate [Recovery] Respiratory Rate [Resting] Respiratory Effort / Characteristics Respiratory Depth Respiratory Pattern Blood Pressure 93/47 L 108/60 Blood Pressure Mean 62 76 Blood Pressure Position Pulse Oximetry 98 95 93 Pulse Oximetry [Exercises] Pulse Oximetry [Recovery] Pulse Oximetry [Resting] Oxygen Delivery Method Room Air Room Air Room Air Sepsis Recent Fever Within 48 Hours Sepsis New/Unexplained Change in Mental Status Sepsis Action Taken by Nursing 05/13/22 15:00 05/13/22 15:30 05/13/22 15:55 Temperature Temperature Source Pulse Rate 60 60 Pulse Rate [Exercises] 73 Pulse Rate [Recovery] 76 Pulse Rate [Resting] 60 Pulse Rate from SpO2 Sensor 60 60 Pulse Rhythm Pulse Strength Respiratory Rate 19 18 Respiratory Rate [Exercises] 24 Respiratory Rate [Recovery] 26 H Respiratory Rate [Resting] 18 Respiratory Effort / Characteristics Respiratory Depth Respiratory Pattern Blood Pressure 90/42 L 93/53 L Blood Pressure Mean 58 66 Blood Pressure Position Pulse Oximetry 93 98 Pulse Oximetry [Exercises] 96 Pulse Oximetry [Recovery] 94 Pulse Oximetry [Resting] 93 Oxygen Delivery Method Room Air Room Air Room Air Sepsis Recent Fever Within 48 Hours Sepsis New/Unexplained Change in Mental Status Sepsis Action Taken by Nursing 05/13/22 16:00 05/13/22 16:30 Temperature Temperature Source Pulse Rate 64 60 Pulse Rate [Exercises] Pulse Rate [Recovery] Pulse Rate [Resting] Pulse Rate from SpO2 Sensor 63 60 Pulse Rhythm Pulse Strength Respiratory Rate 22 18 Respiratory Rate [Exercises] Respiratory Rate [Recovery] Respiratory Rate [Resting] Respiratory Effort / Characteristics Respiratory Depth Respiratory Pattern Blood Pressure 107/55 L 106/54 L Blood Pressure Mean 72 71 Blood Pressure Position Pulse Oximetry 96 93 Pulse Oximetry [Exercises] Pulse Oximetry [Recovery] Pulse Oximetry [Resting] Oxygen Delivery Method Room Air Room Air Sepsis Recent Fever Within 48 Hours Sepsis New/Unexplained Change in Mental Status Sepsis Action Taken by Nursing Laboratory Data Result diagrams: 05/13/22 14:20 05/13/22 14:20 Lab Results 05/13/22 05/13/22 05/13/22 Range/Units 14:07 14:20 14:20 WBC 3.54 L (4.8-10.8) K/ul RBC 2.51 L (4.63-6.08) M/uL Hgb 7.1 L (14.0-18.0) g/dl Hct 23.0 L (40.1-51.0) % MCV 91.6 (80.0-100.0) fL MCH 28.3 (25.0-34.0) pg MCHC 30.9 L (32.0-36.0) g/dL RDW Std Deviation 59.1 H (36.4-46.3) fL RDW Coeff of Chris 17.8 H (11.5-14.5) % Plt Count 119 L (130-400) K/uL MPV 10.7 (9.4-12.4) fL Immature Gran % (Auto) 0.8 % Neut % (Auto) 74.6 % Lymph % (Auto) 7.9 % [place] % (Auto) 14.4 % Eos % (Auto) 2.0 % Baso % (Auto) 0.3 % Neut # (Auto) 2.64 (1.4-6.5) K/uL Lymph # (Auto) 0.28 L (1.2-3.4) K/uL [place] # (Auto) 0.51 (0.24-0.82) K/uL Eos # (Auto) 0.07 (0-0.50) K/uL Baso # (Auto) 0.01 (0-0.2) K/uL Immature Gran # (Auto) 0.03 H (0.00-0.02) K/uL PT (9.0-12.0) Seconds INR (0.9-1.1) Sodium 136 (136-145) mmol/L Potassium 4.2 (3.5-5.1) mmol/L Chloride 106 (98-107) mmol/L Carbon Dioxide 27 (21-32) mmol/L Anion Gap 3 (3-11) BUN 17 (6-23) mg/dl Creatinine 1.51 H (0.6-1.4) mg/dl Est Cr Clr Drug Dosing 74.5 ml/min Est GFR ( Amer) 56.6 ml/min Est GFR (Non-Af Amer) 48.8 ml/min BUN/Creatinine Ratio 11.3 (10-20) Glucose 87 (70-99(Fasting)) mg/dl Calcium 7.3 L (8.5-10.1) mg/dl Total Bilirubin 0.5 (0.2-1.0) mg/dl AST 104 H (13-39) U/L ALT 36 (7-52) U/L Alkaline Phosphatase 97 (34-104) U/L Troponin I High Sens 27.7 H (0-20) pg/ml Total Protein 5.7 L (6.0-8.3) gm/dl Albumin 2.6 L (3.4-5.0) gm/dl Globulin 3.1 (2.5-4.0) gm/dl Albumin/Globulin Ratio 0.8 L (0.9-2) Lipase 57 (11-82) U/L SARS-CoV-2, RNA, NAAT POSITIVE A* (NEGATIVE) Blood Type Antibody Screen Crossmatch 05/13/22 05/13/22 Range/Units 14:20 15:18 WBC (4.8-10.8) K/ul RBC (4.63-6.08) M/uL Hgb (14.0-18.0) g/dl Hct (40.1-51.0) % MCV (80.0-100.0) fL MCH (25.0-34.0) pg MCHC (32.0-36.0) g/dL RDW Std Deviation (36.4-46.3) fL RDW Coeff of Chris (11.5-14.5) % Plt Count (130-400) K/uL MPV (9.4-12.4) fL Immature Gran % (Auto) % Neut % (Auto) % Lymph % (Auto) % [place] % (Auto) % Eos % (Auto) % Baso % (Auto) % Neut # (Auto) (1.4-6.5) K/uL Lymph # (Auto) (1.2-3.4) K/uL [place] # (Auto) (0.24-0.82) K/uL Eos # (Auto) (0-0.50) K/uL Baso # (Auto) (0-0.2) K/uL Immature Gran # (Auto) (0.00-0.02) K/uL PT 36.8 H (9.0-12.0) Seconds INR 3.7 H (0.9-1.1) Sodium (136-145) mmol/L Potassium (3.5-5.1) mmol/L Chloride (98-107) mmol/L Carbon Dioxide (21-32) mmol/L Anion Gap (3-11) BUN (6-23) mg/dl Creatinine (0.6-1.4) mg/dl Est Cr Clr Drug Dosing ml/min Est GFR ( Amer) ml/min Est GFR (Non-Af Amer) ml/min BUN/Creatinine Ratio (10-20) Glucose (70-99(Fasting)) mg/dl Calcium (8.5-10.1) mg/dl Total Bilirubin (0.2-1.0) mg/dl AST (13-39) U/L ALT (7-52) U/L Alkaline Phosphatase (34-104) U/L Troponin I High Sens (0-20) pg/ml Total Protein (6.0-8.3) gm/dl Albumin (3.4-5.0) gm/dl Globulin (2.5-4.0) gm/dl Albumin/Globulin Ratio (0.9-2) Lipase (11-82) U/L SARS-CoV-2, RNA, NAAT (NEGATIVE) Blood Type O Positive Antibody Screen NEGATIVE Crossmatch See Detail Administered Medications Pantoprazole Sodium 40 mg/ (Dextrose) 100 mls @ 20 mls/hr IV Q5H TASH Stop: 06/12/22 15:14 Last Admin: 05/13/22 15:59 Dose: 8 mg/hr, 20 mls/hr Documented by: [id number] Discontinued Medications Pantoprazole Sodium (Protonix Bolus/Drip) 0 mls @ 1 mls/hr IV ONE STA Stop: 05/13/22 14:58 Last Admin: 05/13/22 16:07 Dose: Not Given Documented by: [id number] Pantoprazole Sodium 80 mg/ (Dextrose) 120 mls @ 400 mls/hr IV NOW ONE Stop: 05/13/22 15:14 Last Infusion: 05/13/22 15:49 Dose: 0 mls/hr Documented by: [id number] Admin: 05/13/22 15:31 Dose: 400 mls/hr Documented by: [id number] Sodium Chloride (Nss 1000ml) 1,000 mls @ 999 mls/hr IV .Q1H1M ONE Stop: 05/13/22 16:00 Last Admin: 05/13/22 15:31 Dose: 999 mls/hr Documented by: [id number] Imaging Data Radiologist's Impression: Chest X-Ray 05/13/22 13:02 XR chest 1V portable CLINICAL HISTORY: Chest Pain TECHNIQUE: Single frontal radiograph of the chest was obtained. Comparison: Comparison is made to chest radiograph 11/15/2021 FINDINGS: Pacemaker defibrillator is seen. Cardiomegaly is noted. The lungs are clear. No evidence of pleural effusion or pneumothorax. IMPRESSION: No acute chest disease. ACT 112: Negative or not required by law. Electronically signed by: Ru Daily M.D. 05/13/2022 1:25 PM Discharge Plan Visit Data Chief Complaint: Shortness of Breath/Dyspnea Stated Complaint: SOB, COUGH, POSSIBLE COVID + ED Provider: Jono Alexis Discharge Problem: Symptomatic anemia, Colon cancer, Supratherapeutic INR, COVID-19, Weakness, Acute GI bleeding Forms Stand Alone Forms: My [facility] Prescriptions Prescriptions: No Action Vitron-C 65 mg iron- 125 mg tablet,delayed release (DR/EC) 1 tab PO DAILY RF: 0 ondansetron HCl 8 mg tablet 8 mg PO Q8H PRN (Reason: Pain) RF: 0 amiodarone 200 mg Tablet 300 mg PO Q12 RF: 0 hydrocodone-acetaminophen 5-325 mg Tablet 1 tab PO Q6 PRN (Reason: Pain) RF: 0 isosorbide mononitrate 30 mg Tablet Extended Release 24 Hr 30 mg PO QPM RF: 0 levothyroxine 112 mcg tablet 112 mcg PO DAILYBB RF: 0 nitroglycerin [Nitrostat] 0.4 mg Tablet, Sublingual 0.4 mg sublingual UD PRN (Reason: Chest Pain) RF: 0 metoprolol succinate 100 mg Tablet Extended Release 24 Hr 100 mg PO BID RF: 0 ferrous sulfate 325 mg (65 mg iron) Tablet,Delayed Release (Dr/Ec) 325 mg PO DAILY Qty: 30 RF: 0 capecitabine 500 mg tablet 500 mg PO DIRECTED RF: 0 warfarin 5 mg tablet 2.5 - 5 mg PO DAILY RF: 0 tamsulosin [Flomax] 0.4 mg capsule 0.4 mg PO HS Qty: 14 RF: 0 hydralazine 25 mg tablet 25 mg PO AMHS RF: 0 Referrals Referrals: Radha Rodriguez MD [Primary Care Provider] -
--- NOTE | 2022-05-13 13:26 | XRay Report ---
XR chest 1V portable CLINICAL HISTORY: Chest Pain TECHNIQUE: Single frontal radiograph of the chest was obtained. Comparison: Comparison is made to chest radiograph 11/15/2021 FINDINGS: Pacemaker defibrillator is seen. Cardiomegaly is noted. The lungs are clear. No evidence of pleural e ffusion or pneumothorax. IMPRESSION: No acute chest disease. ACT 112: Negative or not required by law. Electronically signed by: Ru Daily M.D. 05/13/2022 1:25 PM
[2022-05-13 14:33] LABS: Basophils # (auto) 0.01 K/uL (0-0.2); Basophils % (auto) 0.3 %; Eosinophils # (auto) 0.07 K/uL (0-0.50); Hemoglobin 7.1 g/dl (14.0-18.0); Immature Granulocytes # (auto) 0.03 K/uL (0.00-0.02); Immature Granulocytes % (auto) 0.8 %; Lymphocytes # (auto) 0.28 K/uL (1.2-3.4); Lymphocytes % (auto) 7.9 %; Mean Corpuscular Hemoglobin 28.3 pg (25.0-34.0); Mean Corpuscular Hgb Conc 30.9 g/dL (32.0-36.0); Mean Corpuscular Volume 91.6 fL (80.0-100.0); Mean Platelet Volume 10.7 fL (9.4-12.4); Monocytes # (auto) 0.51 K/uL (0.24-0.82); Monocytes % (auto) 14.4 %; Neutrophils # (auto) 2.64 K/uL (1.4-6.5); Neutrophils % (auto) 74.6 %; Platelet Count 119 K/uL (130-400); RDW Coefficient of Variation 17.8 % (11.5-14.5); RDW Standard Deviation 59.1 fL (36.4-46.3); Red Blood Count 2.51 M/uL (4.63-6.08); White Blood Count 3.54 K/ul (4.8-10.8)
[2022-05-13 14:53] LABS: Albumin Globulin Ratio 0.8 (0.9-2); Albumin Level 2.6 gm/dl (3.4-5.0); BUN Creatinine Ratio 11.3 (10-20); Bilirubin,Total 0.5 mg/dl (0.2-1.0); Calcium 7.3 mg/dl (8.5-10.1); Creatinine Clr Calc Pharmacy 74.5 ml/min; Est GFR (African American) 56.6 ml/min; Est GFR (Non-African American) 48.8 ml/min; Globulin 3.1 gm/dl (2.5-4.0); Potassium 4.2 mmol/L (3.5-5.1); Total Protein 5.7 gm/dl (6.0-8.3)
[2022-05-13] MEDS ORDERED: PANTOPRAZOLE BOLUS/DRIP 1 EACH IV STA (14:57)
[2022-05-13] MEDS ORDERED: PANTOprazole 80 MG in DEXTROSE 5% 100 ML IV ONE (14:57)
[2022-05-13 14:59] LABS: Troponin I High Sensitivity 27.7 pg/ml (0-20)
[2022-05-13] MEDS ORDERED: SODIUM CHLORIDE 0.9% 1000ML 1,000 ML IV ONE (15:00)
[2022-05-13] MEDS ORDERED: SODIUM CHLORIDE 0.9% 250 ML IV PRN (15:00)
[2022-05-13] MEDS: PANTOprazole 40 MG in DEXTROSE 5% 100 ML IV SCH ×2 (15:59→20:37)
[2022-05-13 16:04] LABS: INR 3.7 (0.9-1.1); Prothrombin Time 36.8 Seconds (9.0-12.0)
--- NOTE | 2022-05-13 16:55 | History & Physical Report ---
Date of Service May 13, 2022 Assessment & Plan (1) Colon cancer: (2) ABLA (acute blood loss anemia): (3) Acute GI bleeding: (4) COVID-19: (5) Paroxysmal A-fib: (6) CAD (coronary artery disease): (7) Ischemic cardiomyopathy with implantable cardioverter-defibrillator (ICD): (8) Non-sustained ventricular tachycardia: (9) CKD (chronic kidney disease) stage 3, GFR 30-59 ml/min: (10) Sleep apnea: Plan: This is a 61 yo M with PMH of mixed ischemic and nonischemic cardiomyopathy, v- tach, s/p ICD, CAD, h/o left ventricular apical thrombus, paroxysmal atrial fibrillation anticoagulated on warfarin, HTN, dyslipidemia, CKD III, MARIANNA, hypothyroidism, anxiety, elevated LFT's and recently diagnosed colon cancer in 2020 who presents to ED with SOB, congestion as well as continued bleeding per rectum. Patient was admitted a few weeks ago for rectal bleed in the setting of known colon cancer with biopsies consistent with an infiltrating well differentiated carcinoma. [place] [facility] [place] service by Dr. Sanchez given complexity of patient with need for continued anticoagulation without interruption and persistent cancer related to GI bleeding. [facility] [place] service felt bleeding was attributed primarily to supratherapeutic INR and discharged once bleeding resolved. Per patient's report, colorectal surgery is planning on surgical intervention once he completes the next cycle of chemo. Returns today with black stool with some bright red blood present x 2 days, INR of 3.7, epigastric abdominal pain worsening over past month and hgb of 7 (hgb of 9 on 04/30/22). Acute GI bleed Sigmoid/Rectal Colon Cancer Supratherapeutic INR Acute blood loss anemia Type and Cross,transfusing 1 unit now, trend H&H, 2 units on hold - monitor closely. BP improved from 90s/50s to 124/45 with 1L NCC Clear liquid diet, NPO @ [place] Discussed case with Dr. Craig. Not much can be offered therapeutically here for reasons stated above but can provide supportive measures until optimized for colorectal surgery Will discuss with colorectal surgeon Dr. Mosquera at [facility] Hold warfarin/asa Sigmoid/Rectal Colon Ca, T3 Follows medical onc Dr. Spence, currently receiving Capox therapy, last tx 4 weeks ago and due to resume in 4 days Completed Capecitabine concurrent with XRT 3/7/[address] Mosquera [facility] with colorectal No evidence of mets, CT on 04/27/22 showedIll-defined suspicious mass within the hepatic dome measures up to 6.1 cm, mildly increased in size from the prior study. Previously liver bx showed severe hepatic steatosis and marked bridging fibrosis with occasional nodule, but does not appear to be a target bx. Will likely need bx of particular lesion to r/o mets Worsening upper abdominal pain over past month. Consider re-imaging abdomen once patient more stable Covid 19 Developed symptoms over past few days, tested positive today, 05/13/22 Oxygen saturation 97% on room air No indication for Remdesivir at this time Isolation precautions Ischemic cardiomyopathy ICD in place Paroxysmal V. tach PAF H/o L ventricular apical thrombus CAD HTN Continue amiodarone, Imdur and metoprolol with hold parameters Hold ASA, warfarin, Lasix and hydralazine while hypotensive [facility] CKD -3 Baseline cr 1.4-1.5 Bun/cr stable Avoid nephrotoxic agents Hold lasix for now MARIANNA Cpap at HS DVT ppx:SCDS, hold warfarin for now and asa, follow inr Code status: FULL Dispo: PCU PCP: Dr. Rodriguez Patient seen in collaboration with Dr. Petit. Please see addendum. History of Present Illness Chief Complaint: covid symptoms, hematochezia Primary Care Provider: Radha Rodriguez MD This is a 61 yo M with PMH of mixed ischemic and nonischemic cardiomyopathy, v- tach, s/p ICD, CAD, h/o left ventricular apical thrombus, paroxysmal atrial fibrillation anticoagulated on warfarin, HTN, dyslipidemia, CKD III, MARIANNA, hypothyroidism, anxiety, elevated LFT's and recently diagnosed colon cancer in 2020 who presents to ED with SOB, congestion as well as continued bleeding per rectum. Patient was admitted a few weeks ago for rectal bleed in the setting of known colon cancer with biopsies consistent with an infiltrating well differentiated carcinoma. Has been seen by colorectal team who recommended total neoadjuvant chemotherapy and radiation. His last radiation was approximately 3 months ago and last dose of chemo was a month ago. Follows with oncologist Dr. Spence and Dr. Mosquera of colorectal surgery. On last admission, patient had BRBPR in setting of elevated INR. CT abdomen pelvis revealed the circumferential wall thickening of the distal sigmoid colon and rectum which correlates with patient's known malignancy. Was eventually transferred [place] [facility] [place] from colorectal service by Dr. Sanchez given complexity of patient with need for continued anticoagulation without interruption and persistent cancer related to GI bleeding. While admitted [place] [facility], bleeding was attributed primarily to supratherapeutic INR and resolved without surgical intervention. Per patient's report, colorectal surgery is planning on surgical intervention once be completes the next cycle of chemo, which is scheduled to start in 4 days. Patient was discharge home on 05/02/22. Since then, patient has developed cough, congestion and mild shortness of breath and found to be covid positive. Endorses low grade fever and nausea. No chills, headache, chest pain or vomiting. Endorses upper abdominal pain that feels like bloating that is better after bowel movement. Also endorses early satiety over the past month. Stool was brown following discharge home but as INR increased he began to notice blood in stool again. For past 2 days stool has brownish black with some bright red blood in toilet. Endorses lightheadedness with positional change but not at rest. No syncopal events, visual changes or palpitations. Allergies Allergy/AdvReac Type Severity Reaction Status Date / Time No Known Allergies Allergy Verified 05/13/22 16:29 Home Medications Medication Instructions Recorded Confirmed Type amiodarone 200 mg tablet 300 mg PO Q12 09/07/19 05/13/22 History hydrocodone 5 mg-acetaminophen 325 1 tab PO Q6 PRN 09/07/19 05/13/22 History mg tablet levothyroxine 112 mcg tablet 112 mcg PO DAILYBB 01/11/20 05/13/22 History nitroglycerin 0.4 mg sublingual 0.4 mg SUBLINGUAL UD PRN 08/13/20 05/13/22 History tablet (Nitrostat) isosorbide mononitrate 30 mg 30 mg PO QPM 12/25/20 05/13/22 History tablet,extended release 24 hr metoprolol succinate 100 mg 100 mg PO BID 10/20/21 05/13/22 History tablet,extended release 24 hr ferrous sulfate 325 mg (65 mg 325 mg PO DAILY #30 tab 10/21/21 05/13/22 Rx iron) tablet,delayed release iron,carbonyl 65 mg-vitamin C 125 1 tab PO DAILY 11/14/21 05/13/22 History mg tablet,delayed release (Vitron-C) ondansetron HCl 8 mg tablet 8 mg PO Q8H PRN 12/04/21 05/13/22 History tamsulosin 0.4 mg capsule (Flomax) 0.4 mg PO HS #14 cap 12/20/21 05/13/22 Rx hydralazine 25 mg tablet 25 mg PO AMHS 04/27/22 05/13/22 History capecitabine 500 mg tablet 500 mg PO DIRECTED 05/13/22 05/13/22 History warfarin 5 mg tablet 2.5 - 5 mg PO DAILY 05/13/22 05/13/22 History Past Med/Surg History Medical History Afib Maintained on low dose Amiodarone CAD (coronary artery disease) Non-obstructive per 2012 cath Cardiomyopathy Mixed ischemic and nonischemic CM - EF <20%- complicated by VT. ICD placed 2013 No VT episodes since 10/2020 per cardio records Current EF 20-25% F/U RADHA GALLO CHF (congestive heart failure) CHF (congestive heart failure) hx/no recent issues Chronic back pain CKD (chronic kidney disease) stage 3, GFR 30-59 ml/min Depression Elevated LFTs Gout History of kidney stones History of ventricular tachycardia Hypertension Hypothyroidism LBBB (left bundle branch block) Incomplete per records Left ventricular aneurysm Dx'ed around 2011- on Coumadin- cardio monitoring Moderate in size and noted to apical and inferior area. Hx of LV apical thrombus Myocardial Infarction 15+ years ago- medically managed On anticoagulant therapy WARFARIN Paroxysmal A-fib Pneumonia Pneumonia HX-2000 Presence of combination internal cardiac defibrillator (ICD) and pacemaker Implanted 2013 (follows with cardiology/Dr. Jaffe/RADHA GALLO) Sleep apnea CPAP SOB (shortness of breath) on exertion ON OCC Surgical History H/O arthroscopic knee surgery multiple on bilateral knees H/O neck surgery History of cardiac cath 2011= NO STENTS History of colonoscopy (~09/15/21) History of cystoscopy History of esophagogastroduodenoscopy (EGD) History of implantable cardioverter-defibrillator (ICD) placement History of laminectomy L4-L5 History of lithotripsy History of lumbar surgery 09/17/19 Grade 1 view Mac 3, magnet placed on L chest wall during procedure History of tonsillectomy Status post uvulopalatopharyngoplasty Family History Father , 54yo Lung cancer Mother , 85yo Alzheimer disease Brother No problems noted. Brother No problems noted. Sister No problems noted. Daughter No problems noted. Daughter No problems noted. 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 Physical Exam 2 Physical Exam: Please see Dr. Petit's addendum for physical exam. Results & Data Results & Data ([facility]) Vital Signs (Past 12 Hours) Vital Signs Temp Pulse Pulse Pulse Pulse Resp Resp 05/13/22 16:30 60 18 05/13/22 16:00 64 22 05/13/22 15:55 73 76 60 24 05/13/22 15:30 60 18 05/13/22 15:00 60 19 05/13/22 14:30 60 18 05/13/22 14:05 62 05/13/22 14:00 60 23 05/13/22 13:30 60 16 05/13/22 13:24 61 21 05/13/22 12:45 37.1 C 71 20 Resp Resp BP Pulse Ox Pulse Ox Pulse Ox Pulse Ox 05/13/22 16:30 106/54 L 93 05/13/22 16:00 107/55 L 96 05/13/22 15:55 26 H 18 96 94 93 07/10/22 15:30 93/53 L 98 07/10/22 15:00 90/42 L 93 05/13/22 14:30 108/60 93 05/13/22 14:05 95 05/13/22 14:00 93/47 L 98 05/13/22 13:30 92/46 L 92 05/13/22 13:24 92 05/13/22 12:45 126/60 93 Laboratory Results Short CBC 05/13/22 Range/Units 14:20 WBC 3.54 L (4.8-10.8) K/ul Hgb 7.1 L (14.0-18.0) g/dl Hct 23.0 L (40.1-51.0) % Plt Count 119 L (130-400) K/uL BMP 05/13/22 14:20 Sodium 136 Potassium 4.2 Chloride 106 Carbon Dioxide 27 BUN 17 Creatinine 1.51 H Glucose 87 Calcium 7.3 L Liver Function 05/13/22 Range/Units 14:20 Total Bilirubin 0.5 (0.2-1.0) mg/dl AST 104 H (13-39) U/L ALT 36 (7-52) U/L Alkaline Phosphatase 97 (34-104) U/L Albumin 2.6 L (3.4-5.0) gm/dl Medications Administered Chest X-Ray 05/13/22 13:02 XR chest 1V portable CLINICAL HISTORY: Chest Pain TECHNIQUE: Single frontal radiograph of the chest was obtained. Comparison: Comparison is made to chest radiograph 11/15/2021 FINDINGS: Pacemaker defibrillator is seen. Cardiomegaly is noted. The lungs are clear. No evidence of pleural effusion or pneumothorax. IMPRESSION: No acute chest disease. ACT 112: Negative or not required by law. Electronically signed by: Ru Daily M.D. 05/13/2022 1:25 PM Supervising Physician Co-Signing Physician Notes Patient seen and examined by nh, care coordinated with Ct Davidson PA-C, please refer to note above for further detail. Patient is 61 you M w/ ICMO, s/ ICD, hx of NSVT, CKD 3, sleep apnea and colorectal cancer, recently admitted here due to GI bleed, and transferred to [facility] on April 30. Patient was then discharged on May 02 from [facility], seems like bleed was attributed to supratherapeutic INR. Since then bleeding significantly slowed down per patient, however in the last 2 days he did notice some bright red blood in stool. He now presents with cough as well, and was diagnosed with COVID 19. He is however on room air. He complains of feeling lightheaded and weak. Hemoglobin 7.1 in the ED. FOBT not done, I asked the provider to please obtain. 1 unit of blood ordered, and currently being transfused. Patient reports that he met with surgeons at the [facility], and at that time the plan was to do surgery later, after his chemo. He is supposed to start chemo on , per patient. Patient followed up with oncology on May 04, per note found in epic (EMR), they contacted anticoagulation clinic to monitor INR more closely. INR today 3.7. Patient is lying in bed, no acute distress. Has some dry cough. Alert oriented answering questions appropriately. Lungs are clear to auscultation bilaterally without any wheezing rhonchi crackles. Heart sounds regular. Abdomen is soft, mildly distended, very mildly tender to palpation. Obese. No significant lower extremity edema noted. Skin is warm and dry. Will continue to closely monitor H&H. Discussed with GI on-call, for now continue supportive care. We will touch base with patient's colorectal surgeon and /or oncologist on Saturday. We will also discussed with [facility] on Saturday, when available. MD Damaso (1) Sleep apnea Sleep apnea type: obstructive Qualified Code(s): G47.33 - Obstructive sleep apnea (adult) (pediatric) (2) Colon cancer Colon location: unspecified part of colon Qualified Code(s): C18.9 - Malignant neoplasm of colon, unspecified
[2022-05-13] MEDS ORDERED: NITROGLYCERIN SL 0.4 MG/TAB TAB SL PRN (18:13)
[2022-05-13] MEDS ORDERED: HYDROCODONE/ACETAMOPHEN 5/325MG TAB PO PRN (18:13)
[2022-05-13] MEDS ORDERED: POLYETHYLENE (MIRALAX) 17 GM PACK PO PRN (18:52)
[2022-05-13] MEDS ORDERED: ACETAMINOPHEN 325 MG TAB PO PRN (18:52)
[2022-05-13] MEDS: ISOSORBIDE MONO EXTENDED REL 30 MG TABCR PO SCH (20:37)
[2022-05-13] MEDS: TAMSULOSIN HCL 0.4 MG CAP PO SCH (20:37)
[2022-05-13] MEDS: ONDANSETRON INJ 2 MG/ML 2 ML VIAL IV PRN (21:00)
[2022-05-13] MEDS ORDERED: METOPROLOL SUCC 50MG EXT REL TAB PO SCH (21:00)
[2022-05-13] MEDS: guaiFENesin SUGAR FREE 200 MG/10 ML UDC PO PRN (21:16)
[2022-05-13 21:21] LABS: Hematocrit (blood only) 25.7 % (40.1-51.0)
[2022-05-13] MEDS: AMIODARONE 200 MG TAB PO SCH (23:32)
[2022-05-14] MEDS: PANTOprazole 40 MG in DEXTROSE 5% 100 ML IV SCH ×5 (01:14→20:11)
[2022-05-14] MEDS ORDERED: ALBUMIN 25% 100 mL 25 GM/100 ML VIAL IV ONE (03:52)
--- NOTE | 2022-05-14 03:53 | Communication Note ---
Date of Service: May 14, 2022 350 a.m. Notified by RN of SBP 90s. Patient with dizziness on exertion as per RN. AP Symptomatic hypotension IV albumin 1 dose now Decrease maintenance Toprol-XL from 100 mg BID to 25 mg BID for now Hold parameters for Imdur and Flomax. 5 AM Made aware by RN of a.m. labs. Hemoglobin 7.1 (from 8 last night) INR 3.9 (from 3.7 yesterday) No obvious signs of bleeding as per RN. AP Progressive anemia GI bleed history colonic malignancy in the setting of progressive Coumadin coagulopathy (hx cardiac thrombus on TTE 11/23/2021) Transfuse PRBC to maintain hemoglobin greater than 8 (hx CAD) Vitamin K 2.5 mg IV to deter progression of coagulopathy (Hold off on full reversal given cardiac thrombus on recent TTE) 6:10 AM Code antionette called. Few minutes after vitamin K infusion initiated. Patient complained of neck pain going to his chest and back. No rashes or pruritus. EKG as per my interpretation rate 60, paced rhythm Discomfort relieved by nitroglycerin as per RN AP ? ACS ? Parenteral vitamin K hypersensitivity Check troponin Stop vitamin K infusion. Will relay to AM provider.
[2022-05-14 04:35] LABS: Hematocrit (blood only) 22.5 % (40.1-51.0); Hemoglobin 7.1 g/dl (14.0-18.0); Mean Corpuscular Hemoglobin 28.7 pg (25.0-34.0); Mean Corpuscular Hgb Conc 31.6 g/dL (32.0-36.0); Mean Corpuscular Volume 91.1 fL (80.0-100.0); Mean Platelet Volume 11.5 fL (9.4-12.4); Platelet Count 117 K/uL (130-400); RDW Coefficient of Variation 17.6 % (11.5-14.5); RDW Standard Deviation 57.6 fL (36.4-46.3); Red Blood Count 2.47 M/uL (4.63-6.08); White Blood Count 2.96 K/ul (4.8-10.8)
[2022-05-14 04:54] LABS: BUN Creatinine Ratio 11.9 (10-20); Calcium 7.2 mg/dl (8.5-10.1); Creatinine Clr Calc Pharmacy 69.8 ml/min; Est GFR (African American) 53.1 ml/min; Est GFR (Non-African American) 45.8 ml/min; Magnesium 1.9 mg/dl (1.7-2.4); Potassium 4.5 mmol/L (3.5-5.1)
[2022-05-14 04:56] LABS: INR 3.9 (0.9-1.1); Prothrombin Time 38.4 Seconds (9.0-12.0)
[2022-05-14 04:57] LABS: Basophils # (auto) 0.02 K/uL (0-0.2); Basophils % (auto) 0.7 %; Eosinophils # (auto) 0.02 K/uL (0-0.50); Eosinophils % (auto) 0.7 %; Immature Granulocytes # (auto) 0.01 K/uL (0.00-0.02); Immature Granulocytes % (auto) 0.3 %; Lymphocytes # (auto) 0.28 K/uL (1.2-3.4); Lymphocytes % (auto) 9.5 %; Monocytes # (auto) 0.41 K/uL (0.24-0.82); Monocytes % (auto) 13.9 %; Neutrophils # (auto) 2.22 K/uL (1.4-6.5); Neutrophils % (auto) 74.9 %
[2022-05-14] MEDS ORDERED: MAGNESIUM SULFATE / D5W 1 GM/100 ML BAG IV ONE (04:59)
[2022-05-14] MEDS ORDERED: SODIUM CHLORIDE 0.9% 250 ML IV PRN (05:01)
[2022-05-14] MEDS ORDERED: PHYTONADIONE 2.5 MG in SODIUM CHLORIDE 0.9% 50 ML IV ONE (05:30)
[2022-05-14] MEDS: LEVOTHYROXINE SODIUM 112 MCG TABLET PO SCH (06:23)
[2022-05-14 07:04] LABS: Troponin I High Sensitivity 29.9 pg/ml (0-20)
[2022-05-14 07:18] LABS: Albumin Level 2.7 gm/dl (3.4-5.0)
--- NOTE | 2022-05-14 07:41 | Hospitalist Progress Note ---
Date of Service May 14, 2022 Assessment & Plan (1) Rectal bleeding: Plan: ( 1) Colon cancer: (2) ABLA (acute blood loss anemia): (3) Acute GI bleeding: (4) COVID-19: (5) Paroxysmal A-fib: (6) CAD (coronary artery disease): (7) Ischemic cardiomyopathy with implantable cardioverter-defibrillator (ICD): (8) Non-sustained ventricular tachycardia: (9) CKD (chronic kidney disease) stage 3, GFR 30-59 ml/min: (10) Sleep apnea: Plan: This is a 61 yo M with PMH of mixed ischemic and nonischemic cardiomyopathy, v- tach, s/p ICD, CAD, h/o left ventricular apical thrombus, paroxysmal atrial fibrillation anticoagulated on warfarin, HTN, dyslipidemia, CKD III, MARIANNA, hypothyroidism, anxiety, elevated LFT's and recently diagnosed colon cancer in 2020 who presents to ED with SOB, congestion as well as continued bleeding per rectum. Patient was admitted a few weeks ago for rectal bleed in the setting of known colon cancer with biopsies consistent with an infiltrating well differentiated carcinoma. Was transferred to [facility] for care from colorectal service by Dr. Sanchez given complexity of patient with need for continued anticoagulation without interruption and persistent cancer related to GI bleeding. [facility] Colorectal service felt bleeding was attributed primarily to supratherapeutic INR and discharged once bleeding resolved. Per patient's report, colorectal surgery is planning on surgical intervention once he completes the next cycle of chemo. Returns with black stool with some bright red blood present x 2 days, INR of 3.7, epigastric abdominal pain worsening over past month and hgb of 7 (hgb of 9 on 04/30/22). Acute GI bleed Sigmoid/Rectal Colon Cancer Supratherapeutic INR Acute blood loss anemia Type and Cross,transfusing 1 unit now, trend H&H, 2 units on hold - monitor closely. BP improved from 90s/50s to 124/45 with 1L NCC Clear liquid diet, NPO @ MN Discussed case with Dr. Craig on admission. Not much can be offered therapeutically here for reasons stated above but can provide supportive measures until optimized for colorectal surgery Will discuss with colorectal surgeon Dr. Mosquear at [facility] Hold warfarin/asa 05/14 -Per ALEXANDRU Dowling, would recommend transfer for IR. Discussed with COMPA Alves, CTA abdomen pelvis obtained, negative for acute bleed, therefore no need for transfer. Also discussed with colorectal surgery at [facility], Dr. Mosquera, not available at this time, discussed with one of his colleagues, and no plan for more urgent surgical intervention at this time. Therefore transfer canceled. Recommend to control INR, discuss need of anticoagulation. Sigmoid/Rectal Colon Ca, T3 Follows medical onc Dr. Spence, currently receiving Capox therapy, last tx 4 weeks ago and due to resume in 4 days Completed Capecitabine concurrent with XRT 01/08/[address] Mosquera [facility] with colorectal No evidence of mets, CT on 04/27/22 showedIll-defined suspicious mass within the hepatic dome measures up to 6.1 cm, mildly increased in size from the prior study. Previously liver bx showed severe hepatic steatosis and marked bridging fibrosis with occasional nodule, but does not appear to be a target bx. Will likely need bx of particular lesion to r/o mets Worsening upper abdominal pain over past month. Consider re-imaging abdomen once patient more stable Covid 19 Developed symptoms over past few days, tested positive today, 05/13/22 Oxygen saturation 97% on room air No indication for Remdesivir at this time Isolation precautions Ischemic cardiomyopathy ICD in place Paroxysmal V. tach PAF H/o L ventricular apical thrombus CAD HTN Continue amiodarone, Imdur and metoprolol with hold parameters Hold ASA, warfarin, Lasix and hydralazine while hypotensive Follows with [facility] cardiology Overnight patient developed chest pain with administration of IV vitamin K. Per discussion with his daughter, patient had similar reaction previously with vitamin K IV form. Currently no chest pain, patient is comfortable. Per daughter apical thrombus diagnosed about 20 years ago, patient has been on Coumadin for that long. Will discuss with cardiology further need of anticoagulation. CKD -3 Baseline cr 1.4-1.5 Bun/cr stable Avoid nephrotoxic agents Hold lasix for now MARIANNA Cpap at HS DVT ppx:SCDS, hold warfarin for now and asa, follow inr Code status: FULL Dispo:PCU PCP: Dr. Rodriguez Patient's daughter updated over the phone in detail, about patient CTA study, and discussion with [facility], she is aware of no transfer at this time. Admission and Anticipated Discharge Date Admission Date: May 13, 2022 Subjective Patient seen in follow-up of anemia, lightheadedness, positive COVID-19, GI bleed Patient now has bright red blood per rectum as of this morning Reports he saw some red blood in the stool, past 2 days Patient reports feeling much better, however now getting second unit of PRBCs IV vitamin K 2.5 ordered, patient reported chest pain with that, please see plater production note for further detail Currently patient lying in bed, in no acute distress, denies any fevers, chills, chest pain, shortness of breath, palpitations Reports feeling hungry but overall feeling better Review of Systems Review of Systems: All systems reviewed & are unremarkable except as noted in Subjective Physical Exam Constitutional: WD/WN, vitals as above Eyes: PERRL, conjunctivae normal, anicteric sclerae ENMT: external ear and nose normal, oropharynx normal Neck: + thick neck Respiratory: normal respiratory effort, lungs clear to auscultation Cardiovascular: RRR, no murmur, no edema Chest (Breasts): Chest: normal inspection of chest Gastrointestinal (Abdomen): normal bowel sounds, soft, nontender, no hepatosplenomegaly Musculoskeletal: no cyanosis or clubbing, extremities motor strength 5/5 Skin: no rashes, warm and dry Neurologic: PERRL, EOMI, accommodation nl, no face palsy, no dysarthria Psychiatric: A+Ox3, euthymic affect Results & Data Results & Data ([facility]) Vital Signs (Past 12 Hours) Vital Signs Temp Pulse Pulse Resp BP BP BP 05/14/22 07:27 36.8 C 60 20 110/54 L 05/14/22 06:57 36.9 C 62 18 110/64 05/14/22 06:42 36.9 C 65 15 117/57 L 05/14/22 06:26 36.9 C 61 14 112/54 L 05/14/22 06:07 36.9 C 61 18 87/46 L 05/14/22 04:40 62 11 L 05/14/22 04:00 13 05/14/22 03:31 36.7 C 60 18 95/57 L 05/14/22 01:31 37 C 72 92/57 L 05/14/22 00:30 101/53 L 05/14/22 00:00 61 05/13/22 23:47 38 C H 60 23 99/52 L 05/13/22 20:00 66 05/13/22 19:42 36.9 C 64 20 112/50 L Pulse Ox 05/14/22 07:27 94 05/14/22 06:57 94 05/14/22 06:42 94 05/14/22 06:26 98 05/14/22 06:07 96 05/14/22 04:40 91 05/14/22 04:00 96 05/14/22 03:31 96 05/14/22 01:31 05/14/22 00:30 05/14/22 00:00 05/13/22 23:47 94 05/13/22 20:00 05/13/22 19:42 93 Laboratory Results 05/14/22 05/14/22 05/14/22 Range/Units 06:23 04:22 04:17 WBC (4.8-10.8) K/ul RBC (4.63-6.08) M/uL Hgb (14.0-18.0) g/dl Hct (40.1-51.0) % MCV (80.0-100.0) fL MCH (25.0-34.0) pg MCHC (32.0-36.0) g/dL RDW Std Deviation (36.4-46.3) fL RDW Coeff of Chris (11.5-14.5) % Plt Count (130-400) K/uL MPV (9.4-12.4) fL Immature Gran % (Auto) % Neut % (Auto) % Lymph % (Auto) % Rock % (Auto) % Eos % (Auto) % Baso % (Auto) % Neut # (Auto) (1.4-6.5) K/uL Lymph # (Auto) (1.2-3.4) K/uL Rock # (Auto) (0.24-0.82) K/uL Eos # (Auto) (0-0.50) K/uL Baso # (Auto) (0-0.2) K/uL Immature Gran # (Auto) (0.00-0.02) K/uL PT (9.0-12.0) Seconds INR (0.9-1.1) Sodium 134 L (136-145) mmol/L Potassium 4.5 (3.5-5.1) mmol/L Chloride 106 (98-107) mmol/L Carbon Dioxide 25 (21-32) mmol/L Anion Gap 3 (3-11) BUN 19 (6-23) mg/dl Creatinine 1.59 H (0.6-1.4) mg/dl Est Cr Clr Drug Dosing 69.8 ml/min Est GFR ( Amer) 53.1 ml/min Est GFR (Non-Af Amer) 45.8 ml/min BUN/Creatinine Ratio 11.9 (10-20) Glucose 91 (70-99(Fasting)) mg/dl Lactate 1.1 (0.4-2.0) mmol/L Calcium 7.2 L (8.5-10.1) mg/dl Magnesium 1.9 (1.7-2.4) mg/dl Total Bilirubin (0.2-1.0) mg/dl AST (13-39) U/L ALT (7-52) U/L Alkaline Phosphatase (34-104) U/L Troponin I High Sens 29.9 H (0-20) pg/ml Total Protein (6.0-8.3) gm/dl Albumin 2.7 L (3.4-5.0) gm/dl Globulin (2.5-4.0) gm/dl Albumin/Globulin Ratio (0.9-2) Lipase (11-82) U/L Nasal Screen MRSA (PCR) (Negative) SARS-CoV-2, RNA, NAAT (NEGATIVE) Blood Type Antibody Screen Crossmatch 05/14/22 05/14/22 05/13/22 Range/Units 04:17 04:17 21:07 WBC 2.96 L (4.8-10.8) K/ul RBC 2.47 L (4.63-6.08) M/uL Hgb 7.1 L 8.0 L (14.0-18.0) g/dl Hct 22.5 L 25.7 L (40.1-51.0) % MCV 91.1 (80.0-100.0) fL MCH 28.7 (25.0-34.0) pg MCHC 31.6 L (32.0-36.0) g/dL RDW Std Deviation 57.6 H (36.4-46.3) fL RDW Coeff of Chris 17.6 H (11.5-14.5) % Plt Count 117 L (130-400) K/uL MPV 11.5 (9.4-12.4) fL Immature Gran % (Auto) 0.3 % Neut % (Auto) 74.9 % Lymph % (Auto) 9.5 % Rock % (Auto) 13.9 % Eos % (Auto) 0.7 % Baso % (Auto) 0.7 % Neut # (Auto) 2.22 (1.4-6.5) K/uL Lymph # (Auto) 0.28 L (1.2-3.4) K/uL Rock # (Auto) 0.41 (0.24-0.82) K/uL Eos # (Auto) 0.02 (0-0.50) K/uL Baso # (Auto) 0.02 (0-0.2) K/uL Immature Gran # (Auto) 0.01 (0.00-0.02) K/uL PT 38.4 H (9.0-12.0) Seconds INR 3.9 H (0.9-1.1) Sodium (136-145) mmol/L Potassium (3.5-5.1) mmol/L Chloride (98-107) mmol/L Carbon Dioxide (21-32) mmol/L Anion Gap (3-11) BUN (6-23) mg/dl Creatinine (0.6-1.4) mg/dl Est Cr Clr Drug Dosing ml/min Est GFR ( Amer) ml/min Est GFR (Non-Af Amer) ml/min BUN/Creatinine Ratio (10-20) Glucose (70-99(Fasting)) mg/dl Lactate (0.4-2.0) mmol/L Calcium (8.5-10.1) mg/dl Magnesium (1.7-2.4) mg/dl Total Bilirubin (0.2-1.0) mg/dl AST (13-39) U/L ALT (7-52) U/L Alkaline Phosphatase (34-104) U/L Troponin I High Sens (0-20) pg/ml Total Protein (6.0-8.3) gm/dl Albumin (3.4-5.0) gm/dl Globulin (2.5-4.0) gm/dl Albumin/Globulin Ratio (0.9-2) Lipase (11-82) U/L Nasal Screen MRSA (PCR) (Negative) SARS-CoV-2, RNA, NAAT (NEGATIVE) Blood Type Antibody Screen Crossmatch 05/13/22 05/13/22 05/13/22 Range/Units 20:01 15:18 14:20 WBC (4.8-10.8) K/ul RBC (4.63-6.08) M/uL Hgb (14.0-18.0) g/dl Hct (40.1-51.0) % MCV (80.0-100.0) fL MCH (25.0-34.0) pg MCHC (32.0-36.0) g/dL RDW Std Deviation (36.4-46.3) fL RDW Coeff of Chris (11.5-14.5) % Plt Count (130-400) K/uL MPV (9.4-12.4) fL Immature Gran % (Auto) % Neut % (Auto) % Lymph % (Auto) % Rock % (Auto) % Eos % (Auto) % Baso % (Auto) % Neut # (Auto) (1.4-6.5) K/uL Lymph # (Auto) (1.2-3.4) K/uL Rock # (Auto) (0.24-0.82) K/uL Eos # (Auto) (0-0.50) K/uL Baso # (Auto) (0-0.2) K/uL Immature Gran # (Auto) (0.00-0.02) K/uL PT 36.8 H (9.0-12.0) Seconds INR 3.7 H (0.9-1.1) Sodium (136-145) mmol/L Potassium (3.5-5.1) mmol/L Chloride (98-107) mmol/L Carbon Dioxide (21-32) mmol/L Anion Gap (3-11) BUN (6-23) mg/dl Creatinine (0.6-1.4) mg/dl Est Cr Clr Drug Dosing ml/min Est GFR ( Amer) ml/min Est GFR (Non-Af Amer) ml/min BUN/Creatinine Ratio (10-20) Glucose (70-99(Fasting)) mg/dl Lactate (0.4-2.0) mmol/L Calcium (8.5-10.1) mg/dl Magnesium (1.7-2.4) mg/dl Total Bilirubin (0.2-1.0) mg/dl AST (13-39) U/L ALT (7-52) U/L Alkaline Phosphatase (34-104) U/L Troponin I High Sens (0-20) pg/ml Total Protein (6.0-8.3) gm/dl Albumin (3.4-5.0) gm/dl Globulin (2.5-4.0) gm/dl Albumin/Globulin Ratio (0.9-2) Lipase (11-82) U/L Nasal Screen MRSA (PCR) Negative (Negative) SARS-CoV-2, RNA, NAAT (NEGATIVE) Blood Type O Positive Antibody Screen NEGATIVE Crossmatch See Detail 05/13/22 05/13/22 05/13/22 Range/Units 14:20 14:20 14:07 WBC 3.54 L (4.8-10.8) K/ul RBC 2.51 L (4.63-6.08) M/uL Hgb 7.1 L (14.0-18.0) g/dl Hct 23.0 L (40.1-51.0) % MCV 91.6 (80.0-100.0) fL MCH 28.3 (25.0-34.0) pg MCHC 30.9 L (32.0-36.0) g/dL RDW Std Deviation 59.1 H (36.4-46.3) fL RDW Coeff of Chris 17.8 H (11.5-14.5) % Plt Count 119 L (130-400) K/uL MPV 10.7 (9.4-12.4) fL Immature Gran % (Auto) 0.8 % Neut % (Auto) 74.6 % Lymph % (Auto) 7.9 % Rock % (Auto) 14.4 % Eos % (Auto) 2.0 % Baso % (Auto) 0.3 % Neut # (Auto) 2.64 (1.4-6.5) K/uL Lymph # (Auto) 0.28 L (1.2-3.4) K/uL Rock # (Auto) 0.51 (0.24-0.82) K/uL Eos # (Auto) 0.07 (0-0.50) K/uL Baso # (Auto) 0.01 (0-0.2) K/uL Immature Gran # (Auto) 0.03 H (0.00-0.02) K/uL PT (9.0-12.0) Seconds INR (0.9-1.1) Sodium 136 (136-145) mmol/L Potassium 4.2 (3.5-5.1) mmol/L Chloride 106 (98-107) mmol/L Carbon Dioxide 27 (21-32) mmol/L Anion Gap 3 (3-11) BUN 17 (6-23) mg/dl Creatinine 1.51 H (0.6-1.4) mg/dl Est Cr Clr Drug Dosing 74.5 ml/min Est GFR ( Amer) 56.6 ml/min Est GFR (Non-Af Amer) 48.8 ml/min BUN/Creatinine Ratio 11.3 (10-20) Glucose 87 (70-99(Fasting)) mg/dl Lactate (0.4-2.0) mmol/L Calcium 7.3 L (8.5-10.1) mg/dl Magnesium (1.7-2.4) mg/dl Total Bilirubin 0.5 (0.2-1.0) mg/dl AST 104 H (13-39) U/L ALT 36 (7-52) U/L Alkaline Phosphatase 97 (34-104) U/L Troponin I High Sens 27.7 H (0-20) pg/ml Total Protein 5.7 L (6.0-8.3) gm/dl Albumin 2.6 L (3.4-5.0) gm/dl Globulin 3.1 (2.5-4.0) gm/dl Albumin/Globulin Ratio 0.8 L (0.9-2) Lipase 57 (11-82) U/L Nasal Screen MRSA (PCR) (Negative) SARS-CoV-2, RNA, NAAT POSITIVE A* (NEGATIVE) Blood Type Antibody Screen Crossmatch Medications Administered Current Inpatient Medications Acetaminophen (Acetaminophen 325 Mg Tab) 650 mg PO Q4H PRN PRN Reason: Pain or Fever Stop: 06/12/22 18:51 Last Admin: 05/13/22 21:00 Dose: 650 mg Documented by: Hydrocodone Bitart/Acetaminophen (Hydrocodone/Acetamophen 5/325mg Tab) 1 tab PO Q6H PRN PRN Reason: Pain Stop: 05/27/22 18:12 Amiodarone HCl (Amiodarone 200 Mg Tab) 300 mg PO Q12@0000,1200 [facility] Stop: 06/13/22 00:00 Last Admin: 05/13/22 23:32 Dose: 300 mg Documented by: Ascorbic Acid (Ascorbic Acid 500 Mg Tab) 250 mg PO DAILY [facility]; Protocol Stop: 06/13/22 08:59 Ferrous Sulfate (Ferrous Sulfate 325 Mg Tab) 325 mg PO DAILY [facility] Stop: 06/14/22 08:59 Guaifenesin (Guaifenesin Sugar Free 200 Mg/10 Ml Udc) 200 mg PO Q6H PRN PRN Reason: Cough Stop: 06/12/22 20:09 Last Admin: 05/13/22 21:16 Dose: 200 mg Documented by: Pantoprazole Sodium 40 mg/ (Dextrose) 100 mls @ 20 mls/hr IV Q5H [facility] Stop: 06/12/22 15:14 Last Admin: 05/14/22 05:54 Dose: 8 mg/hr, 20 mls/hr Documented by: Sodium Chloride (Nss) 250 mls @ 15 mls/hr IV .[id number] PRN PRN Reason: For Transfusion Stop: 05/14/22 15:02 Isosorbide Mononitrate (Isosorbide Rock Extended Rel 30 Mg Tabcr) 30 mg PO QPM [facility] Stop: 06/12/22 20:59 Last Admin: 05/13/22 20:37 Dose: 30 mg Documented by: Levothyroxine Sodium (Levothyroxine Sodium 112 Mcg Tablet) 112 mcg PO DAILYBB [facility] Stop: 06/13/22 06:29 Last Admin: 05/14/22 06:23 Dose: 112 mcg Documented by: Metoprolol Succinate (Metoprolol Succ 25mg Ext Rel Tab) 25 mg PO BID [facility] Stop: 06/13/22 08:59 Nitroglycerin (Nitroglycerin Sl 0.4 Mg/Tab Tab) 0.4 mg SL UD PRN PRN Reason: Chest Pain Stop: 06/12/22 18:12 Last Admin: 05/14/22 06:22 Dose: 0.4 mg Documented by: Ondansetron HCl (Ondansetron Inj 2 Mg/Ml 2 Ml Vial) 4 mg IV Q6H PRN PRN Reason: Nausea Stop: 06/12/22 18:51 Last Admin: 05/13/22 21:00 Dose: 4 mg Documented by: Polyethylene Glycol (Polyethylene (Miralax) 17 Gm Pack) 17 gm PO DAILY PRN PRN Reason: Constipation Stop: 06/12/22 18:51 Tamsulosin HCl (Tamsulosin Hcl 0.4 Mg Cap) 0.4 mg PO HS [facility] Stop: 06/12/22 20:59 Last Admin: 05/13/22 20:37 Dose: 0.4 mg Documented by:
[2022-05-14] MEDS: ASCORBIC ACID 500 MG TAB PO SCH (08:09)
[2022-05-14] MEDS: METOPROLOL SUCC 25MG EXT REL TAB PO SCH ×2 (08:10→20:29)
[2022-05-14] MEDS: guaiFENesin SUGAR FREE 200 MG/10 ML UDC PO PRN ×2 (08:16→20:11)
--- NOTE | 2022-05-14 09:42 | Gastrointestinal Consultation ---
Date of Consultation May 14, 2022 Assessment & Plan (1) Colon cancer: (2) BRBPR (bright red blood per rectum): (3) Anemia: After conversation with Dr. Helder Petit who is the primary hospitalist, I called the transfer center in [place], asking to speak with IR coldfusion and had a conversation with Dr. Cook. He explained that, if the pt is bleeding from a vessel, then, IR embolization would be helpful, but if bleeding from the tumor or radiation proctitis, then IR procedure is not indicated. He recommends transfer and high level CT angiogram. Discussed w Dr. Ramirez, as well as Dr. Petit by [place] text and phone. Supervising Physician Co-Signing Physician Notes Late entry: Patient was seen and examined on 05/14 with JITENDRA Pool whose note reflects our findings andplan. Patient with T3 rectal/rectosigmoid cancer undergoing neoadjuvant therapy. Completed XRT and undergoing chemo. Having rectal bleeding in the setting of XRT, tumor present and supratherapeutic INR of 3.9. Bleeding likely multifactorial (unclear if diffuse bleeding from tumor vs localized vessel vs XRT proctitis. Interventional radiology in [place] on board and recommended CTA to help localize bleeding. Discussed need to reverse anticoagulation with primary service and this can be done slowly as patient has not tolerated well in the past. If CTA is negative, then will consider endoscopic evaluation of he lower GI tract once INR has come down. Oncologist should be notified of patient's admission as well. History of Present Illness Reason for Consultation: colon cancer, BRBPR Requesting Physician: tC Mills PA-C Attending Physician: Helder Petit MD History of Present Illness Mr. Alexander Trujillo is a 61 yr old male pt of Dr. Rodriguez w a hx of colon cancer (dx'ed Oct 2021, 2cm tumor staged T3No located 10cm from the anal verge). He completed radiation in January 2022, and is currently undergoing neoadjuvant chemo. He has seen Dr. Mosquera from [facility] in [place] and surgery is being planned for after completion of the chemo). He is also anticoagulated for A-fib and hx of apical thrombus, also w ischemic cardiomyopathy, CKD, HTN, hypothyroid. He presented to the ED yesterday for cough, congestion, SOB and is COVID positive. GI is consulted for rectal bleeding. Two wks ago, when he had rectal bleeding, he was transferred to [place] for IR intervention, however, bleeding stopped while there and procedures were deferred. Hb on arrival 7.1, down from 9.2 on the date of prior DC on 04/30. The pt has passed 3 BMs consisting of some fecal material and a large amt of bright red bl ood in the past 24 hrs. He reports that the most recent BM around 11AM was a little darker in color. He has required 2 units of RBCs and recent Hb is 7.7. Allergies Allergy/AdvReac Type Severity Reaction Status Date / Time No Known Allergies Allergy Verified 05/13/22 16:29 Home Medications Medication Instructions Recorded Confirmed Type amiodarone 200 mg tablet 300 mg PO Q12 09/07/19 05/13/22 History hydrocodone 5 mg-acetaminophen 325 1 tab PO Q6 PRN 09/07/19 05/13/22 History mg tablet levothyroxine 112 mcg tablet 112 mcg PO DAILYBB 01/11/20 05/13/22 History nitroglycerin 0.4 mg sublingual 0.4 mg SUBLINGUAL UD PRN 08/13/20 05/13/22 History tablet (Nitrostat) isosorbide mononitrate 30 mg 30 mg PO QPM 12/25/20 05/13/22 History tablet,extended release 24 hr metoprolol succinate 100 mg 100 mg PO BID 10/20/21 05/13/22 History tablet,extended release 24 hr ferrous sulfate 325 mg (65 mg 325 mg PO DAILY #30 tab 10/21/21 05/13/22 Rx iron) tablet,delayed release iron,carbonyl 65 mg-vitamin C 125 1 tab PO DAILY 11/14/21 05/13/22 History mg tablet,delayed release (Vitron-C) ondansetron HCl 8 mg tablet 8 mg PO Q8H PRN 12/04/21 05/13/22 History tamsulosin 0.4 mg capsule (Flomax) 0.4 mg PO HS #14 cap 12/20/21 05/13/22 Rx hydralazine 25 mg tablet 25 mg PO AMHS 04/27/22 05/13/22 History capecitabine 500 mg tablet 500 mg PO DIRECTED 05/13/22 05/13/22 History warfarin 5 mg tablet 2.5 - 5 mg PO DAILY 05/13/22 05/13/22 History Patient History Medical History Afib Maintained on low dose Amiodarone CAD (coronary artery disease) Non-obstructive per 2011 cath Cardiomyopathy Mixed ischemic and nonischemic CM - EF <20%- complicated by VT. ICD placed 2013 No VT episodes since 10/2020 per cardio records Current EF 20-25% F/U RADHA GALLO CHF (congestive heart failure) CHF (congestive heart failure) hx/no recent issues Chronic back pain CKD (chronic kidney disease) stage 3, GFR 30-59 ml/min Depression Elevated LFTs Gout History of kidney stones History of ventricular tachycardia Hypertension Hypothyroidism LBBB (left bundle branch block) Incomplete per records Left ventricular aneurysm Dx'ed around 2011- on Coumadin- cardio monitoring Moderate in size and noted to apical and inferior area. Hx of LV apical thrombus Myocardial Infarction 15+ years ago- medically managed On anticoagulant therapy WARFARIN Paroxysmal A-fib Pneumonia Pneumonia HX-2000 Presence of combination internal cardiac defibrillator (ICD) and pacemaker Implanted 2013 (follows with cardiology/Dr. Jaffe/RADHA GALLO) Sleep apnea CPAP SOB (shortness of breath) on exertion ON OCC Surgical History H/O arthroscopic knee surgery multiple on bilateral knees H/O neck surgery History of cardiac cath 2011= NO STENTS History of colonoscopy (~09/15/21) History of cystoscopy History of esophagogastroduodenoscopy (EGD) History of implantable cardioverter-defibrillator (ICD) placement History of laminectomy L4-L5 History of lithotripsy History of lumbar surgery 09/17/19 Grade 1 view Mac 3, magnet placed on L chest wall during procedure History of tonsillectomy Status post uvulopalatopharyngoplasty Family History Father , 54yo Lung cancer Mother , 85yo Alzheimer disease Brother No problems noted. Brother No problems noted. Sister No problems noted. Daughter No problems noted. Daughter No problems noted. Social History Smoking Status: Never smoker Second Hand Exposure: No; Do You Dip or Chew Tobacco: No; Tobacco Cessation Education Requested by Patient: No Hx Alcohol Use: No Hx Substance Use: No Preferred Language: Nepali Communication Ability: Effective Visual Impairment: Limited Hearing Ability: Normal Passenger Coach Driver Required: No Beliefs That Will Affect Care: None marital status: Current Living Situation: Alone Current Living Situation Comment: dtr lives next door current occupational status: disabled Other Information That Helps Us Care for You: No Feels Safe at Home: Yes Safety Concerns: Feels Safe At This Time caffeine: No during the past year weight has: decreased > 10 lbs Assistive Devices: Review of Systems Review of Systems: Due to COVID positive, hx obtained from review of chart, discussion with the pt's RN and the primary hospitalist. Physical Exam Physical Exam: Exam deferred due to COVID positive. Chart reviewed (IP and OP EPIC). Discussion with the pt's RN and the primary hospitalist. Reviewed the photo of the pts most recent BM, taken by the pt and shown to me by the pt's RN. Results & Data ([facility]) Vital Signs (Past 12 Hours) Vital Signs Temp Pulse Pulse Resp BP BP BP 05/14/22 08:27 36.8 C 62 20 119/72 05/14/22 08:26 36.9 C 92 H 20 112/48 L 05/14/22 08:03 36.4 C L 68 20 110/64 05/14/22 08:00 60 05/14/22 07:27 36.8 C 60 20 110/54 L 05/14/22 06:57 36.9 C 62 18 110/64 05/14/22 06:42 36.9 C 65 15 117/57 L 05/14/22 06:26 36.9 C 61 14 112/54 L 05/14/22 06:07 36.9 C 61 18 87/46 L 05/14/22 04:40 62 11 L 05/14/22 04:00 13 05/14/22 03:31 36.7 C 60 18 95/57 L 05/14/22 01:31 37 C 72 92/57 L 05/14/22 00:30 101/53 L 05/14/22 00:00 61 05/13/22 23:47 38 C H 60 23 99/52 L Pulse Ox 05/14/22 08:27 96 05/14/22 08:26 94 05/14/22 08:03 93 05/14/22 08:00 05/14/22 07:27 94 05/14/22 06:57 94 05/14/22 06:42 94 05/14/22 06:26 98 05/14/22 06:07 96 05/14/22 04:40 91 05/14/22 04:00 96 05/14/22 03:31 96 05/14/22 01:31 05/14/22 00:30 05/14/22 00:00 05/13/22 23:47 94 Laboratory Results WBC 2.9, Hb 7.7, Hct 23.9, Plts 117, INR 3.9, Na 134, K 4.5, Cl 106, CO2 24, BUN 19, Cr 1.59, glucose 91 Diagnostic Findings CXR normal. (1) Colon cancer Colon location: unspecified part of colon Qualified Code(s): C18.9 - Malignant neoplasm of colon, unspecified
[2022-05-14] MEDS: AMIODARONE 200 MG TAB PO SCH ×2 (12:27→23:16)
[2022-05-14 12:37] LABS: Hematocrit (blood only) 23.9 % (40.1-51.0); Hemoglobin 7.7 g/dl (14.0-18.0)
--- NOTE | 2022-05-14 13:00 | Electrocardiogram Report ---
Test Reason : Blood Pressure : / mmHG Vent. Rate : 063 BPM Atrial Rate : 063 BPM P-R Int : 294 ms QRS Dur : 140 ms QT Int : 462 ms P-R-T Axes : 124 062 039 degrees QTc Int : 472 ms Atrial-paced rhythm with prolonged AV conduction Non-specific intra-ventricular conduction block Nonspecific T wave abnormality Abnormal ECG When compared with ECG of 27-APR-2022 10:32, Borderline criteria for Anterolateral infarct are no longer Present T wave inversion now evident in Lateral leads Confirmed by Dexter Jama ([id number]) on 05/14/2022 1:00:25 PM Referred By: REFERRED SELF Confirmed By:Maik Jama
--- NOTE | 2022-05-14 13:02 | Electrocardiogram Report ---
Test Reason : Blood Pressure : / mmHG Vent. Rate : 061 BPM Atrial Rate : 069 BPM P-R Int : 320 ms QRS Dur : 130 ms QT Int : 486 ms P-R-T Axes : 000 088 063 degrees QTc Int : 489 ms Atrial-paced rhythm with prolonged AV conduction Non-specific intra-ventricular conduction block Abnormal ECG When compared with ECG of 13-MAY-2022 14:13, (unconfirmed) No significant change was found Confirmed by Dexter Jama ([id number]) on 05/14/2022 1:02:17 PM Referred By: REFERRED SELF Confirmed By:Maik Jama
--- NOTE | 2022-05-14 13:41 | Communication Note ---
Date of Service: May 14, 2022 In addition to the GI plan documented on the GI consult. Discussion w Dr. Ramirez: if CTA w/o evidence of extravasation, and if pt unable to be transferred, once INR is reversed to <2, we could have pt undergo flex sig and if bleeding from radiation proctitis, it could be APC'ed.
[2022-05-14] MEDS ORDERED: OPTIRAY 320 125ml IV ONE (14:13)
--- NOTE | 2022-05-14 14:41 | CT Scan Report ---
CT ANGIOGRAM OF THE ABDOMEN AND PELVIS CLINICAL HISTORY: GI bleeding. Reported history of colorectal carcinoma. COMPARISON STUDY: CT angiogram of the abdomen and pelvis dated 04/27/2022. TECHNIQUE: Following the IV administration of 120 cc of Optiray 320, CT angiogram of the abdomen and pelvis was performed from the lung bases the proximal femora. Images are reviewed in the axial, sagit debbie, and coronal planes. 3-D MIPS images are created and assessed. IV contrast was administered witho ut complication. A dose lowering technique was utilized adhering to the principles of ALARA. CT DOSE: 1886.69 mGy.cm FINDINGS: Lower chest: The heart is enlarged and without pericardial effusion. The coronary arteries are densel y calcified. Pacemaker leads are in place. There are trace pleural effusions with dependent atelectas is. Liver: The contrast-enhanced liver is enlarged, measuring 25.5 cm in length. The liver is cirrhotic i n morphology and markedly heterogeneous in attenuation. There is nodularity of the hepatic surface co ntour. There is no intrahepatic biliary ductal dilatation. An approximately 6 cm ill-defined mass les ion is again suggested at the hepatic dome on image #67. Gallbladder: Unremarkable. Spleen: The spleen is enlarged, measuring 18.1 cm in length. Pancreas: Unremarkable. Adrenal glands: Unremarkable. Kidneys: The contrast enhanced kidneys atrophic and without hydronephrosis. Nonobstructing renal calc sarbjit measure up to 4 mm. The kidneys enhance symmetrically. Bilateral renal cysts measure up to 5 cm. Abdominal aorta and iliac arteries: The abdominal aorta is normal in course and caliber noting modera te to advanced atherosclerotic calcification. The aorta is widely patent. No dissection identified. T he iliac arteries are widely patent bilaterally. Major branches of the abdominal aorta: The celiac trunk, superior mesenteric, and inferior mesenteric arteries are widely patent. Hepatic arterial anatomy is conventional. The splenic artery is widely p atent. Single bilateral renal arteries are patent. There is bilateral renal artery calcification. Bowel: There are scattered colonic diverticula without CT evidence of acute diverticulitis. No bowel obstruction is identified. Mild fecal retention is seen throughout the colon. The appendix is well-v isualized and normal. The rectal wall appears mildly thickened and hyperemic. Peritoneum: No intraperitoneal free air is identified. There is a fat-containing umbilical hernia. Th ere is trace abdominopelvic ascites. Lymphadenopathy: None. Pelvic viscera: The prostate gland is diminutive and heterogeneous. The bladder wall is thickened and trabeculated indicating chronic outlet obstruction. There is a small fat-containing left inguinal he rnia. Skeletal structures: Spondylotic and postoperative change is noted in the lumbar spine. No destructiv e bony lesions are seen. IMPRESSION: 1. There is wall thickening and mild hyperemia at the rectosigmoid junction, likely corresponding to the site of patient's known malignancy. Clinical correlation will be required. 2. Unremarkable CT angiogram of the abdominal aorta and its major branches. 3. The liver is enlarged, markedly heterogeneous, and cirrhotic in morphology. 4. An approximately 6 cm ill-defined mass lesion is again suggested in the region of the hepatic dome . This may represent fibrosis. Neoplasm is not excluded. 5. Cardiomegaly and trace pleural effusions. 6. Splenomegaly and a small volume of abdominopelvic ascites indicate portal hypertension. Ascites is new from 04/27/2022. 8. Bilateral nephrolithiasis. 9. Additional findings as above. ACT 112: Negative or not required by law. Electronically signed by: Joe Todd M.D. 05/14/2022 2:39 PM
--- NOTE | 2022-05-14 16:20 | Discharge Summary ---
Date of Service May 14, 2022 Admission HPI Per Admitting Provider This is a 61 yo M with PMH of mixed ischemic and nonischemic cardiomyopathy, v- tach, s/p ICD, CAD, h/o left ventricular apical thrombus, paroxysmal atrial fibrillation anticoagulated on warfarin, HTN, dyslipidemia, CKD III, MARIANNA, hypothyroidism, anxiety, elevated LFT's and recently diagnosed colon cancer in 2020 who presents to ED with SOB, congestion as well as continued bleeding per rectum. Patient was admitted a few weeks ago for rectal bleed in the setting of known colon cancer with biopsies consistent with an infiltrating well differentiated carcinoma. Has been seen by colorectal team who recommended total neoadjuvant chemotherapy and radiation. His last radiation was approximately 3 months ago and last dose of chemo was a month ago. Follows with oncologist Dr. Spence and Dr. Mosquera of colorectal surgery. On last admission, patient had BRBPR in setting of elevated INR. CT abdomen pelvis revealed the circumferential wall thickening of the distal sigmoid colon and rectum which correlates with patient's known malignancy. Was eventually transferred to [facility] for care from colorectal service by Dr. Sanchez given complexity of patient with need for continued anticoagulation without interruption and persistent cancer related to GI bleeding. While admitted to [facility], bleeding was attributed primarily to supratherapeutic INR and resolved without surgical intervention. Per patient's report, colorectal surgery is planning on surgical intervention once be completes the next cycle of chemo, which is scheduled to start in 4 days. Patient was discharge home on 05/02/22. Since then, patient has developed cough, congestion and mild shortness of breath and found to be covid positive. Endorses low grade fever and nausea. No chills, headache, chest pain or vomiting. Endorses upper abdominal pain that feels like bloating that is better after bowel movement. Also endorses early satiety over the past month. Stool was brown following discharge home but as INR increased he began to notice blood in stool again. For past 2 days stool has brownish black with some bright red blood in toilet. Endorses lightheadedness with positional change but not at rest. No syncopal events, visual changes or palpitations. Admission Exam Per Admitting Provider Physical Exam: Vitals signs as noted above General Appearance:Obese, no apparent distress Head: normocephalic, Atraumatic Eyes: normal inspection, EOMI Neck: supple, Trachea midline Respiratory/Chest: Normal breath sounds, CTA, No accessory muscle use Cardiovascular: S1, S2, No murmur Abdomen/GI:Soft, RLQ tender, Bowel sounds present Extremities/Musculoskeletal:normal inspection, no edema Neurologic/Psych:AAOX3, grossly no focal neurological deficits Skin: normal color, warm Principal Diagnosis HEMATOCHEZIA RECTAL CANCER CHRONIC COUMADIN USE, LEFT VENTRICULAR THROMBUS Discharge Exam General- oriented x 3, not in distress, speaks in sentences with no effort or accessory muscle use Eyes- anicteric Neck- no JVD Lungs- clear BS bilaterally, no rales/wheezes Heart- normal rate, regular rhythm; no murmurs Abdomen- normal bowel sounds, nondistended, soft, no tenderness Extremities- no pretibial edema, no calf tenderness Neuro- alert, oriented x 3; no gross focal neurologic deficits Skin- warm & dry Discharge Data Allergies Allergy/AdvReac Type Severity Reaction Status Date / Time No Known Allergies Allergy Verified 05/13/22 16:29 Consultations 05/13/22 15:26 ED Decision to Admit Stat 05/13/22 18:52 Consult Gastroenterology Routine Ordered Studies 05/14/22 13:30 CT angio abdomen pelvis w con Stat Hospital Course (1) Colon cancer: (2) ABLA (acute blood loss anemia): (3) Acute GI bleeding: (4) COVID-19: (5) Paroxysmal A-fib: (6) CAD (coronary artery disease): (7) Ischemic cardiomyopathy with implantable cardioverter-defibrillator (ICD): (8) Non-sustained ventricular tachycardia: (9) CKD (chronic kidney disease) stage 3, GFR 30-59 ml/min: (10) Sleep apnea: (1) BRBPR (bright red blood per rectum): (2) Colon cancer: (3) Anemia: (4) Supratherapeutic INR: Plan: Per admitting service notes with addendum: This is a 61 y/o M with PMH mixed ischemic and nonischemic cardiomyopathy, v- tach, s/p ICD, CAD, h/o left ventricular apical thrombus, paroxysmal atrial fibrillation anticoagulated on warfarin, HTN, dyslipidemia, CKD III, MARIANNA, hypothyroidism, anxiety, elevated LFT's, recently diagnosed colon cancer who presents to ED due to rectal bleeding x3 days. Hematochezia Sigmoid/Rectal Colon Cancer - currently undergoing neoadjuvant chemo, completed XRT Supratherapeutic INR Anemia - 2/2 to colon cancer and acute GI loss admit to tele consult gastroenterology Type and Cross, place 2 units on hold H&H q6h s/p 5mg Vit K repeat h/h and vit K @ 1800 NPO gentle IVF, LR @ 80cc/hr after further discussion with GI colleagues they recommend transfer of patient to tertiary facility for IR services Discussed with patient and daughter who wish to pursue [facility] Pt colorectal surgeon is Dr. Mosquera at [facility] hold warfarin/asa 04/30 recurrence of hematochezia x 2 Hemoglobin 8.5 INR 1.7 HOLD coumadin repeat H&H discussed with GI service recommend transfer to [facility] History of left ventricular apical thrombus INR 1.7 hold coumadin again as patient has recurrence of hematochezia Sigmoid/Rectal Colon Ca, T3 follows medical onc Dr. Spence, currently receiving Capox therapy, last tx 3 weeks ago completed Capecitabine concurrent with XRT 01/08/[address] Mosquera [facility] with colorectal no evidence of mets, CT today showedIll-defined suspicious mass within the hepatic dome measures up to 6.1 cm, mildly increased in size from the prior study. Previously liver bx showed severe hepatic steatosis and marked bridging fibrosis with occasional nodule, but does not appear to be a target bx. Will likely need bx of particular lesion to r/o mets Ischemic cardiomyopathy ICD in place Paroxysmal V. tach PAF h/o L ventricular apical thrombus CAD HTN Continue amiodarone, Imdur and metoprolol Patient did not take morning meds will give one-time dose of amiodarone and metoprolol now Hold ASA, warfarin, Lasix and hydralazine As needed IV hydralazine for blood pressure greater than 160 pt last echo 10/21/21 revealed EF 25 to 30%, focal akinesis with mild expansion of the mid and apical septum, mild diffuse hypokinesis in all other segments, grade 1 diastolic dysfunction, no valvular disease Follows [facility] cardiology 04/30 Euvolemic Elevated troponin high sensitive pt w/o chest pain, repeat in 2 hours relatively unchanged Remained flat in the 20s CKD -3 baseline cr 1.4-1.5 bun/cr stable avoid nephrotoxic agents MARIANNA Cpap at HS DVT ppx: SCDS only Dispo: Anticipate discharge to home when medically stable, hopefully tomorrow PCP: Jennifer FULL CODE plan of care discussed with patient in detail and at length all questions answered he is understanding, agreeable, comfortable with the plan of care Total Time Total Time Spent Total Time Spent (In Minutes): >30 MINUTES Discharge Plan Discharge Items Patient Disposition: Transfer Acute Care Hospital Reason For Visit: COVID, SYMPTOMATIC ANEMIA Discharge Diagnosis: HEMATO Follow-up/Referrals: Titi Rodriguez MD [Primary Care Provider] - Stand-Alone Forms: [facility] Medications and DC Order Prescriptions: No Action Vitron-C 65 mg iron- 125 mg tablet,delayed release (DR/EC) 1 tab PO DAILY RF: 0 ondansetron HCl 8 mg tablet 8 mg PO Q8H PRN (Reason: Pain) RF: 0 amiodarone 200 mg Tablet 300 mg PO Q12 RF: 0 hydrocodone-acetaminophen 5-325 mg Tablet 1 tab PO Q6 PRN (Reason: Pain) RF: 0 isosorbide mononitrate 30 mg Tablet Extended Release 24 Hr 30 mg PO QPM RF: 0 levothyroxine 112 mcg tablet 112 mcg PO DAILYBB RF: 0 nitroglycerin [Nitrostat] 0.4 mg Tablet, Sublingual 0.4 mg sublingual UD PRN (Reason: Chest Pain) RF: 0 metoprolol succinate 100 mg Tablet Extended Release 24 Hr 100 mg PO BID RF: 0 ferrous sulfate 325 mg (65 mg iron) Tablet,Delayed Release (Dr/Ec) 325 mg PO DAILY Qty: 30 RF: 0 capecitabine 500 mg tablet 500 mg PO DIRECTED RF: 0 warfarin 5 mg tablet 2.5 - 5 mg PO DAILY RF: 0 tamsulosin [Flomax] 0.4 mg capsule 0.4 mg PO HS Qty: 14 RF: 0 hydralazine 25 mg tablet 25 mg PO AMHS RF: 0 Admission Data Admit Date/Time: 05/13/22 17:21 Attending Provider: Helder Petit Admit Provider: Helder Petit Primary Care Provider: Titi Rodriguez Other Providers: Helder Petit ; Carlo Craig
--- NOTE | 2022-05-14 16:32 | Discharge Summary ---
Date of Service May 14, 2022 Delayed entry date of service 04/30/22 Admission HPI Per Admitting Provider Chief Complaint: Rectal bleeding x 3 days. Primary Care Provider: Titi Rodriguez MD This is a 61 y/o M with PMH mixed ischemic and nonischemic cardiomyopathy, v- tach, s/p ICD, CAD, h/o left ventricular apical thrombus, paroxysmal atrial fibrillation anticoagulated on warfarin, HTN, dyslipidemia, CKD III, MARIANNA, hypothyroidism, anxiety, elevated LFT's, recently diagnosed colon cancer who presents to ED due to rectal bleeding x3 days. Daughter is at bedside. Of significance patient was diagnosed with colon cancer 09/15/2021 after undergoing a colonoscopy due to iron deficiency anemia which revealed an ulcerated nonobstructing medium-sized mass found in the sigmoid colon. The mass was partially circumferential. Biopsies from the mass was consistent with an infiltrating well differentiated carcinoma. Based on endoscopic ultrasound patient was diagnosed with T3 disease. He was seen by colorectal team who recommended total neoadjuvant chemotherapy and radiation. His last radiation was approximately 3 months ago. His last dose of chemo was 3 weeks ago and he was due for it today. He is currently being treated with CAPOX. His medical oncologist is Dr. Spence. He states approximately 2 to 3 days ago he developed bright red blood per rectum. The amount of blood got worse over the last 2 to 3 days. He notes a significant amount of bright red blood in the toilet bowl and on toilet paper. This morning he was lightheaded when walking, but this resolved with sitting. He also felt more fatigued. Due to symptoms worsening he presented to ED. He otherwise has been doing well and tolerating chemo well. He does complain of mild lower abdominal discomfort. He states this morning he did have a sharp left lower quadrant abdominal pain that was relieved with a bowel movement. He denies any frances diarrhea, but also admits is difficult to tell with the amount of blood. He has never had anything like this before. He denies any fever, chills, sweats, syncope, change in vision, change in hearing, chest pain, shortness breath, cough, URI symptoms, emesis, dysuria, increased urgency or frequency with urination. He did have mild nausea this morning that was improved with oral Zofran. In ED patient was found to have a worsening anemia with a hemoglobin of 9.9 and 30.0. His INR was 9.6. His creatinine was stable at 1.42. He did have minimally elevated troponin at 23.3 and lipase at 134. He underwent CT abdomen pelvis which revealed the circumferential wall thickening of the distal sigmoid colon and rectum which correlates with patient's known malignancy. There is no bowel obstruction or pneumoperitoneum. Also noted was trace pleural effusions with trace ascites and mild diffuse mesenteric edema. Also noted was interstitial edema within the pancreas. Cirrhotic morphology of liver suggestive of portal venous hypertension. An ill-defined suspicious mass within the hepatic dome measures up to 6.1 cm which is mildly increased from prior study. During ER evaluation patient developed a significant occipital head pain that was rated as a 10 out of 10, sharp and stabbing. Head CT was then ordered to rule out bleeding given supratherapeutic INR. His head CT was negative for any acute abnormality. He did receive 5 mg of IV vitamin K in ED. Principal Diagnosis HEMATOCHEZIA RECTAL CANCER Discharge Exam General- oriented x 3, not in distress, speaks in sentences with no effort or accessory muscle use Eyes- anicteric Neck- no JVD Lungs- clear BS bilaterally, no rales/wheezes Heart- normal rate, regular rhythm; no murmurs Abdomen- normal bowel sounds, nondistended, soft, no tenderness Extremities- no pretibial edema, no calf tenderness Neuro- alert, oriented x 3; no gross focal neurologic deficits Skin- warm & dry Discharge Data Allergies Allergy/AdvReac Type Severity Reaction Status Date / Time No Known Allergies Allergy Verified 05/13/22 16:29 Consultations 05/13/22 15:26 ED Decision to Admit Stat 05/13/22 18:52 Consult Gastroenterology Routine Ordered Studies 05/14/22 13:30 CT angio abdomen pelvis w con Stat Hospital Course (1) Rectal bleeding: (1) BRBPR (bright red blood per rectum): (2) Colon cancer: (3) Anemia: (4) Supratherapeutic INR: Plan: Per admitting service notes with addendum: This is a 61 y/o M with PMH mixed ischemic and nonischemic cardiomyopathy, v- tach, s/p ICD, CAD, h/o left ventricular apical thrombus, paroxysmal atrial fibrillation anticoagulated on warfarin, HTN, dyslipidemia, CKD III, MARIANNA, hypothyroidism, anxiety, elevated LFT's, recently diagnosed colon cancer who presents to ED due to rectal bleeding x3 days. Hematochezia Sigmoid/Rectal Colon Cancer - currently undergoing neoadjuvant chemo, completed XRT Supratherapeutic INR Anemia - 2/2 to colon cancer and acute GI loss admit to tele consult gastroenterology Type and Cross, place 2 units on hold H&H q6h s/p 5mg Vit K repeat h/h and vit K @ 1800 NPO gentle IVF, LR @ 80cc/hr after further discussion with GI colleagues they recommend transfer of patient to tertiary facility for IR services Discussed with patient and daughter who wish to pursue [facility] Pt colorectal surgeon is Dr. Mosquera at [facility] hold warfarin/asa 04/30 recurrence of hematochezia x 2 Hemoglobin 8.5 INR 1.7 HOLD coumadin repeat H&H discussed with GI service recommend transfer to [facility] History of left ventricular apical thrombus INR 1.7 hold coumadin again as patient has recurrence of hematochezia Sigmoid/Rectal Colon Ca, T3 follows medical onc Dr. Spence, currently receiving Capox therapy, last tx 3 weeks ago completed Capecitabine concurrent with XRT 01/08/[address] Mosquera [facility] with colorectal no evidence of mets, CT today showedIll-defined suspicious mass within the hepatic dome measures up to 6.1 cm, mildly increased in size from the prior study. Previously liver bx showed severe hepatic steatosis and marked bridging fibrosis with occasional nodule, but does not appear to be a target bx. Will likely need bx of particular lesion to r/o mets Ischemic cardiomyopathy ICD in place Paroxysmal V. tach PAF h/o L ventricular apical thrombus CAD HTN Continue amiodarone, Imdur and metoprolol Patient did not take morning meds will give one-time dose of amiodarone and metoprolol now Hold ASA, warfarin, Lasix and hydralazine As needed IV hydralazine for blood pressure greater than 160 pt last echo 10/21/21 revealed EF 25 to 30%, focal akinesis with mild expansion of the mid and apical septum, mild diffuse hypokinesis in all other segments, grade 1 diastolic dysfunction, no valvular disease Follows [facility] cardiology 04/30 Euvolemic Elevated troponin high sensitive pt w/o chest pain, repeat in 2 hours relatively unchanged Remained flat in the 20s CKD -3 baseline cr 1.4-1.5 bun/cr stable avoid nephrotoxic agents MARIANNA Cpap at HS DVT ppx: SCDS only Dispo: Anticipate discharge to home when medically stable, hopefully tomorrow PCP: Jennifer FULL CODE plan of care discussed with patient in detail and at length all questions answered he is understanding, agreeable, comfortable with the plan of care Total Time Total Time Spent Total Time Spent (In Minutes): >30 MINUTES Discharge Plan Discharge Items Patient Disposition: Transfer Acute Care Hospital Reason For Visit: Rectal Bleeding Discharge Diagnosis: HEMATOCHEZIA Activity: Resume your previous activity Non-emergency contact: Primary Care Provider Call non-emergency contact if: you have any medication questions Follow-up/Referrals: Titi Rodriguez MD [Primary Care Provider] - Diet: Regular Addtl Attending Provider Instructions: PLEASE REFER TO ACCOMPANYING HOSPITAL DISCHARGE SUMMARY. Pending Studies at Discharge: Yes Studies:: PLEASE REFER TO HOSPITAL DISCHARGE SUMMARY Stand-Alone Forms: My [facility] Skilled Items Patient informed of condition?: Yes DNR: No Discharge Level of Care: Other Communicable Disease: No Discharge Prognosis: Stable Lines: Peripheral IV Urinary Catheter: No Medications and DC Order Prescriptions: Continued Vitron-C 65 mg iron- 125 mg tablet,delayed release (DR/EC) 1 tab PO DAILY RF: 0 ondansetron HCl 8 mg tablet 8 mg PO Q8H PRN (Reason: Pain) RF: 0 amiodarone 200 mg Tablet 300 mg PO Q12 RF: 0 hydrocodone-acetaminophen 5-325 mg Tablet 1 tab PO Q6 PRN (Reason: Pain) RF: 0 isosorbide mononitrate 30 mg Tablet Extended Release 24 Hr 30 mg PO QPM RF: 0 levothyroxine 112 mcg tablet 112 mcg PO DAILYBB RF: 0 nitroglycerin [Nitrostat] 0.4 mg Tablet, Sublingual 0.4 mg sublingual UD PRN (Reason: Chest Pain) RF: 0 metoprolol succinate 100 mg Tablet Extended Release 24 Hr 100 mg PO BID RF: 0 ferrous sulfate 325 mg (65 mg iron) Tablet,Delayed Release (Dr/Ec) 325 mg PO DAILY Qty: 30 RF: 0 capecitabine 500 mg tablet 500 mg PO DIRECTED RF: 0 tamsulosin [Flomax] 0.4 mg capsule 0.4 mg PO HS Qty: 14 RF: 0 hydralazine 25 mg tablet 25 mg PO AMHS RF: 0 Discontinued warfarin 5 mg tablet 2.5 - 5 mg PO DAILY RF: 0 Discharge Orders: Discharge Order (Routine); Ordered 05/14/22 Ordered By: Vicente Dupont Admission Data Admit Date/Time: 05/13/22 17:21 Attending Provider: Helder Petit Admit Provider: Helder Petit Primary Care Provider: Titi Rodriguez Other Providers: Helder Petit ; Carlo Craig
[2022-05-14 18:53] LABS: Hematocrit (blood only) 25.2 % (40.1-51.0); Hemoglobin 8.3 g/dl (14.0-18.0)
[2022-05-14] MEDS: ONDANSETRON INJ 2 MG/ML 2 ML VIAL IV PRN (20:26)
[2022-05-14] MEDS: TAMSULOSIN HCL 0.4 MG CAP PO SCH (20:29)
[2022-05-14] MEDS: ISOSORBIDE MONO EXTENDED REL 30 MG TABCR PO SCH (20:29)
[2022-05-14] MEDS: PROMETHAZINE HCL 12.5 MG in SODIUM CHLORIDE 0.9% 50 ML IV PRN (23:16)
[2022-05-15] MEDS: PANTOprazole 40 MG in DEXTROSE 5% 100 ML IV SCH ×5 (02:34→22:16)
[2022-05-15] MEDS: LEVOTHYROXINE SODIUM 112 MCG TABLET PO SCH (06:17)
[2022-05-15] MEDS: FERROUS SULFATE 325 MG TAB PO SCH (08:02)
[2022-05-15] MEDS: ASCORBIC ACID 500 MG TAB PO SCH (08:03)
[2022-05-15] MEDS: METOPROLOL SUCC 25MG EXT REL TAB PO SCH ×2 (08:04→20:31)
[2022-05-15] MEDS: guaiFENesin SUGAR FREE 200 MG/10 ML UDC PO PRN ×3 (08:05→23:02)
[2022-05-15 08:37] LABS: Hematocrit (blood only) 26.5 % (40.1-51.0); Hemoglobin 8.4 g/dl (14.0-18.0); Mean Corpuscular Hemoglobin 28.2 pg (25.0-34.0); Mean Corpuscular Hgb Conc 31.7 g/dL (32.0-36.0); Mean Corpuscular Volume 88.9 fL (80.0-100.0); Mean Platelet Volume 10.3 fL (9.4-12.4); Platelet Count 150 K/uL (130-400); RDW Coefficient of Variation 17.4 % (11.5-14.5); RDW Standard Deviation 56.2 fL (36.4-46.3); Red Blood Count 2.98 M/uL (4.63-6.08); White Blood Count 5.26 K/ul (4.8-10.8)
--- NOTE | 2022-05-15 08:46 | Hospitalist Progress Note ---
Date of Service May 15, 2022 Assessment & Plan (1) Rectal bleeding: Plan: (1) Colon cancer: (2) ABLA (acute blood loss anemia): (3) Acute GI bleeding: (4) COVID-19: (5) Paroxysmal A-fib: (6) CAD (coronary artery disease): (7) Ischemic cardiomyopathy with implantable cardioverter-defibrillator (ICD): (8) Non-sustained ventricular tachycardia: (9) CKD (chronic kidney disease) stage 3, GFR 30-59 ml/min: (10) Sleep apnea: Plan: This is a 61 yo M with PMH of mixed ischemic and nonischemic cardiomyopathy, v- tach, s/p ICD, CAD, h/o left ventricular apical thrombus, paroxysmal atrial fibrillation anticoagulated on warfarin, HTN, dyslipidemia, CKD III, MARIANNA, hypothyroidism, anxiety, elevated LFT's and recently diagnosed colon cancer in 2020 who presents to ED with SOB, congestion as well as continued bleeding per rectum. Patient was admitted a few weeks ago for rectal bleed in the setting of known colon cancer with biopsies consistent with an infiltrating well differentiated carcinoma. Was transferred [place] [facility] [place] from colorectal service by Dr. Sanchez given complexity of patient with need for continued anticoagulation without interruption and persistent cancer related to GI bleeding. [facility] Colorectal service felt bleeding was attributed primarily to supratherapeutic INR and discharged once bleeding resolved. Per patient's report, colorectal surgery is planning on surgical intervention once he completes the next cycle of chemo. Returns with black stool with some bright red blood present x 2 days, INR of 3.7, epigastric abdominal pain worsening over past month and hgb of 7 (hgb of 9 on 04/30/22). Acute GI bleed Sigmoid/Rectal Colon Cancer Supratherapeutic INR Acute blood loss anemia Type and Cross,transfusing 1 unit now, trend H&H, 2 units on hold - monitor closely. BP improved from 90s/50s to 124/45 with 1L NCC Clear liquid diet, NPO @ [place] Discussed case with Dr. Craig on admission. Not much can be offered therapeutically here for reasons stated above but can provide supportive measures until optimized for colorectal surgery Will discuss with colorectal surgeon Dr. Mosquera at [facility] Hold warfarin/asa /11 -Per ALEXANDRU Dowling, would recommend transfer for IR. Discussed with COM[facility] Al[facility], CTA abdomen pelvis obtained, negative for acute bleed, therefore no need for transfer. Also discussed with colorectal surgery at [facility] Dr. Mosquera not available at this time, discussed with one of his colleagues, and no plan for more urgent surgical intervention at this time. Therefore transfer canceled. Recommend to control INR, discuss need of anticoagulation. Follow up w/ Dr. Mosquera to be arranged 05/15 - No recurrent BRBPR since yesterday. INR 2.1, Hgb stable this AM Plan for sigmoidoscopy by GI tmrw Cardiology consulted for further evaluation of need for anticoagulation/ change of AC drug - issue raised by colorectal surgery during my phone call Pt also experienced chest pain with IV vit. K administration. Per daughter this happened twice to the pt - I informed the pharmacy. PO vit. K preferred if needed in the future. Sigmoid/Rectal Colon Ca, T3 Follows medical onc Dr. Spence, currently receiving Capox therapy, last tx 4 weeks ago and due to resume in 4 days Completed Capecitabine concurrent with XRT 01/08/[address] Mosquera [facility] with colorectal No evidence of mets, CT on 04/27/22 showedIll-defined suspicious mass within the hepatic dome measures up to 6.1 cm, mildly increased in size from the prior study. Previously liver bx showed severe hepatic steatosis and marked bridging fibrosis with occasional nodule, but does not appear to be a target bx. Will likely need bx of particular lesion to r/o mets Worsening upper abdominal pain over past month. Consider re-imaging abdomen once patient more stable GI following while inpt. Pt to follow up w/ colorect. surg. as outpt., as above Covid 19 Developed symptoms over past few days, tested positive today, 05/13/22 Oxygen saturation 97% on room air No indication for Remdesivir at this time Isolation precautions Ischemic cardiomyopathy ICD in place Paroxysmal V. tach PAF H/o L ventricular apical thrombus CAD HTN Continue amiodarone, Imdur and metoprolol with hold parameters Hold ASA, warfarin, Lasix and hydralazine while hypotensive Follows with [facility] cardiology Overnight patient developed chest pain with administration of IV vitamin K. Per discussion with his daughter, patient had similar reaction previously with vitamin K IV form. Currently no chest pain, patient is comfortable. Per daughter apical thrombus diagnosed about 20 years ago, patient has been on Coumadin for that long. Will discuss with cardiology further need of anticoagulation. CKD -3 Baseline cr 1.4-1.5 Bun/cr stable Avoid nephrotoxic agents Hold lasix for now MARIANNA Cpap at HS DVT ppx:SCDS, hold warfarin for now and asa, follow inr Code status: FULL Dispo:PCU PCP: Dr. Rodriguez Patient's daughter updated over the phone in detail, about patient CTA study, and discussion with [place], she is aware of no transfer at this time. Admission and Anticipated Discharge Date Admission Date: May 13, 2022 Subjective Patient seen in follow-up of anemia, lightheadedness, positive COVID-19, GI bleed Patient had bright red blood per rectum yesterday morning Reports he saw some red blood in the stool, past 2 days Pt received 2 units of PRBCs IV vitamin K 2.5 ordered, patient reported chest pain with that, please see chief guard note for further detail Given recurrent GI bleed and hx of malignant rectal mass, discussed with GI and attempted transfer to [facility], transfer was cancelled No BRBPR since yesterday and INR down to 2.1, Hgb stable this AM Plan for sigmoidoscopy tmrw Currently patient lying in bed, in no acute distress, denies any fevers, chills, chest pain, shortness of breath, palpitations Reports feeling hungry but overall feeling better Review of Systems Review of Systems: All systems reviewed & are unremarkable except as noted in Subjective Physical Exam Constitutional: WD/WN, vitals as above obese M BMI 40 Eyes: PERRL, conjunctivae normal, anicteric sclerae ENMT: external ear and nose normal, oropharynx normal Neck: + thick neck Respiratory: normal respiratory effort, lungs clear to auscultation Cardiovascular: RRR, no murmur, no edema Chest (Breasts): Chest: normal inspection of chest Gastrointestinal (Abdomen): normal bowel sounds, soft, nontender, no hepatosplenomegaly Musculoskeletal: no cyanosis or clubbing, extremities motor strength 5/5 Skin: no rashes, warm and dry Neurologic: PERRL, EOMI, accommodation nl, no face palsy, no dysarthria Psychiatric: A+Ox3, euthymic affect Results & Data Results & Data ([facility]) Vital Signs (Past 12 Hours) Vital Signs Temp Pulse Resp BP BP Pulse Ox 05/15/22 07:54 37.5 C 60 18 130/73 93 05/15/22 02:37 36.8 C 64 20 119/68 92 05/14/22 23:28 36.9 C 62 20 137/69 94 Laboratory Results 05/15/22 05/15/22 05/15/22 Range/Units 08:23 08:23 08:23 WBC 5.26 (4.8-10.8) K/ul RBC 2.98 L (4.63-6.08) M/uL Hgb 8.4 L (14.0-18.0) g/dl Hct 26.5 L (40.1-51.0) % MCV 88.9 (80.0-100.0) fL MCH 28.2 (25.0-34.0) pg MCHC 31.7 L (32.0-36.0) g/dL RDW Std Deviation 56.2 H (36.4-46.3) fL RDW Coeff of Chris 17.4 H (11.5-14.5) % Plt Count 150 (130-400) K/uL MPV 10.3 (9.4-12.4) fL PT 21.1 H (9.0-12.0) Seconds INR 2.1 H (0.9-1.1) Sodium 133 L (136-145) mmol/L Potassium 4.4 (3.5-5.1) mmol/L Chloride 104 (98-107) mmol/L Carbon Dioxide 27 (21-32) mmol/L Anion Gap 2 L (3-11) BUN 18 (6-23) mg/dl Creatinine 1.58 H (0.6-1.4) mg/dl Est Cr Clr Drug Dosing 70.5 ml/min Est GFR ( Amer) 53.5 ml/min Est GFR (Non-Af Amer) 46.2 ml/min BUN/Creatinine Ratio 11.4 (10-20) Glucose 91 (70-99(Fasting)) mg/dl Calcium 7.7 L (8.5-10.1) mg/dl Phosphorus 4.3 (2.5-4.9) mg/dl Magnesium 2.1 (1.7-2.4) mg/dl Crossmatch 05/14/22 05/14/22 05/13/22 Range/Units 18:46 12:09 15:18 WBC (4.8-10.8) K/ul RBC (4.63-6.08) M/uL Hgb 8.3 L 7.7 L (14.0-18.0) g/dl Hct 25.2 L 23.9 L (40.1-51.0) % MCV (80.0-100.0) fL MCH (25.0-34.0) pg MCHC (32.0-36.0) g/dL RDW Std Deviation (36.4-46.3) fL RDW Coeff of Chris (11.5-14.5) % Plt Count (130-400) K/uL MPV (9.4-12.4) fL PT (9.0-12.0) Seconds INR (0.9-1.1) Sodium (136-145) mmol/L Potassium (3.5-5.1) mmol/L Chloride (98-107) mmol/L Carbon Dioxide (21-32) mmol/L Anion Gap (3-11) BUN (6-23) mg/dl Creatinine (0.6-1.4) mg/dl Est Cr Clr Drug Dosing ml/min Est GFR ( Amer) ml/min Est GFR (Non-Af Amer) ml/min BUN/Creatinine Ratio (10-20) Glucose (70-99(Fasting)) mg/dl Calcium (8.5-10.1) mg/dl Phosphorus (2.5-4.9) mg/dl Magnesium (1.7-2.4) mg/dl Crossmatch See Detail Medications Administered Current Inpatient Medications Acetaminophen (Acetaminophen 325 Mg Tab) 650 mg PO Q4H PRN PRN Reason: Pain or Fever Stop: 06/12/22 18:51 Last Admin: 05/13/22 21:00 Dose: 650 mg Documented by: Hydrocodone Bitart/Acetaminophen (Hydrocodone/Acetamophen 5/325mg Tab) 1 tab PO Q6H PRN PRN Reason: Pain Stop: 05/27/22 18:12 Amiodarone HCl (Amiodarone 200 Mg Tab) 300 mg PO Q12@0000,1200 TASH Stop: 06/13/22 00:00 Last Admin: 05/14/22 23:16 Dose: 300 mg Documented by: Ascorbic Acid (Ascorbic Acid 500 Mg Tab) 250 mg PO DAILY [facility]; Protocol Stop: 06/13/22 08:59 Last Admin: 05/15/22 08:03 Dose: 250 mg Documented by: Ferrous Sulfate (Ferrous Sulfate 325 Mg Tab) 325 mg PO DAILY [facility] Stop: 06/14/22 08:59 Last Admin: 05/15/22 08:02 Dose: 325 mg Documented by: Guaifenesin (Guaifenesin Sugar Free 200 Mg/10 Ml Udc) 200 mg PO Q6H PRN PRN Reason: Cough Stop: 06/12/22 20:09 Last Admin: 05/15/22 08:05 Dose: 200 mg Documented by: Pantoprazole Sodium 40 mg/ (Dextrose) 100 mls @ 20 mls/hr IV Q5H [facility] Stop: 06/12/22 15:14 Last Admin: 05/15/22 08:02 Dose: 8 mg/hr, 20 mls/hr Documented by: Promethazine HCl 12.5 mg/ (Sodium Chloride) 50.5 mls @ 202 mls/hr IV Q6H PRN PRN Reason: Nausea And Vomiting Stop: 06/13/22 22:22 Last Infusion: 05/14/22 23:41 Dose: Infused Documented by: Isosorbide Mononitrate (Isosorbide Kerr Extended Rel 30 Mg Tabcr) 30 mg PO QPM [facility] Stop: 06/12/22 20:59 Last Admin: 05/14/22 20:29 Dose: 30 mg Documented by: Levothyroxine Sodium (Levothyroxine Sodium 112 Mcg Tablet) 112 mcg PO DAILYBB [facility] Stop: 06/13/22 06:29 Last Admin: 05/15/22 06:17 Dose: 112 mcg Documented by: Metoprolol Succinate (Metoprolol Succ 25mg Ext Rel Tab) 25 mg PO BID [facility] Stop: 06/13/22 08:59 Last Admin: 05/15/22 08:04 Dose: 25 mg Documented by: Nitroglycerin (Nitroglycerin Sl 0.4 Mg/Tab Tab) 0.4 mg SL UD PRN PRN Reason: Chest Pain Stop: 06/12/22 18:12 Last Admin: 05/14/22 06:22 Dose: 0.4 mg Documented by: Polyethylene Glycol (Polyethylene (Miralax) 17 Gm Pack) 17 gm PO DAILY PRN PRN Reason: Constipation Stop: 06/12/22 18:51 Tamsulosin HCl (Tamsulosin Hcl 0.4 Mg Cap) 0.4 mg PO [facility] Stop: 06/12/22 20:59 Last Admin: 05/14/22 20:29 Dose: 0.4 mg Documented by:
[2022-05-15 08:54] LABS: INR 2.1 (0.9-1.1); Prothrombin Time 21.1 Seconds (9.0-12.0)
[2022-05-15 09:19] LABS: BUN Creatinine Ratio 11.4 (10-20); Calcium 7.7 mg/dl (8.5-10.1); Creatinine Clr Calc Pharmacy 70.5 ml/min; Est GFR (African American) 53.5 ml/min; Est GFR (Non-African American) 46.2 ml/min; Magnesium 2.1 mg/dl (1.7-2.4); Phosphorus 4.3 mg/dl (2.5-4.9); Potassium 4.4 mmol/L (3.5-5.1)
[2022-05-15] MEDS ORDERED: POLYETHYLENE (MIRALAX) 17 GM PACK PO ONE (10:27)
--- NOTE | 2022-05-15 10:31 | Communication Note ---
Date of Service: May 15, 2022 61-year-old male with rectosigmoid colon cancer status post radiation continuing neoadjuvant chemotherapy, admitted with rectal bleeding and COVID. Has required 2 units of PRBCs. CTA without extravasation, reviewed by IR in [place], embolization not indicated. Colon prep today and tapwater enema tomorrow. Flex sig tomorrow in the OR to APC the tumor at the sites of bleeding. May have clear liquids po today. NPO after midnight.
[2022-05-15] MEDS: AMIODARONE 200 MG TAB PO SCH ×2 (11:29→23:02)
[2022-05-15] MEDS ORDERED: POTASSIUM CHLORIDE PWD 20 MEQ PACK PO SCH (14:00)
[2022-05-15] MEDS ORDERED: POTASSIUM CHLORIDE PWD 20 MEQ PACK PO ONE ×2 (14:00→20:00)
--- NOTE | 2022-05-15 14:18 | Cardiology Consultation ---
Date of Consultation May 15, 2022 Assessment & Plan (1) Rectal bleeding: (2) Colon cancer: (3) Symptomatic anemia: (4) COVID-19: (5) Supratherapeutic INR: (6) Paroxysmal A-fib: (7) History of ventricular tachycardia: (8) Ischemic cardiomyopathy with implantable cardioverter-defibrillator (ICD): Patient with recurrent GI bleeding in setting of colorectal cancer s/p radiation and current chemo. INR supratherapeutic each time has has recurrent GI bleed. Planned colonoscopy tomorrow. Echo in Nov 2021 revealed persistent LV apical thrombus. He also has a history of PAF, high [id number] score. 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 However, in setting of acute and recurrent GI bleed and colorectal mass requiring , ongoing anticoagulation risks outweigh the benefit. Hold Coumadin for now. Will re-evaluate resuming coumadin after colonoscopy pending results and s tabilization of hbg. If resumed, would monitor INR closely and keep goal lower end of normal around 2.0-2.5. It seems he does not have recurrent bleeding around these levels. Otherwise, stable to proceed with colonoscopy from cardiac perspective. He should continue all other cardiac meds including amiodarone, metoprolol, isosorbide, hydralazine. Case discussed with Dr. Vigil. Will follow. Supervising Physician Co-Signing Physician Notes Consultation requested regarding anticoagulation. Patient with history of ischemic cardiomyopathy, LV apical thrombus and paroxysmal atrial fibrillation. Received intravenous vitamin K last evening with resultant chest discomfort. Agree with above PA-C assessment and plan. Currently risks of anticoagulation outweigh benefit wound recurrent GI bleeding. Hold Coumadin. Reevaluate resuming anticoagulation post colonoscopy. Continue other cardiac medications i ncluding amiodarone, metoprolol, isosorbide, and hydralazine. History of Present Illness Reason for Consultation: Colon/rectal CA; recurrent GI bleed/anemia; History of LV mural thrombus and chronic anticoagulation Requesting Physician: Dr. Petit Attending Physician: Dr. Vigil History of Present Illness Patient is a 61 year old male who presented to [facility] for recurrent GI bleeding and weakness. He is well known to [facility], following primarily with Dr. Jaffe/Carol Gallo PA-C. History includes: 1. 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 2. NYHA Class III, Stage C chronic systolic congestive heart failure 3. Status post dual-chamber pacemaker-defibrillator implantation April 2014. 4. History of LV apical thrombus 5. Nonobstructive coronary disease cardiac catheterization last in March 2012. 6. Paroxysmal atrial fibrillation. 7. Recurrent symptomatic ventricular tachycardia, prescribed amiodarone, 8. Chronic obstructive sleep apnea on PAP and oxygen supplementation. 9. Hypertension 10. Dyslipidemia 11. Anxiety 12. Hypothyroidism 13. Chronic kidney disease, stage III 14. Iron deficiency anemia 15. Adenocarcinoma of the colon diagnosed in September 2021 Earlier this year patient was diagnosed with colorectal cancer. Undergoing radiation and chemo treatments currently, then future resection planned. In the last 6 weeks, patient has had recurrent issues with acute GI bleeding. He was admitted to [facility] and then transferred to [facility] in April 2022. INR supratherapeutic at the time, around 4.3 Reversed with Vit K. Hbg remained stable. IR was oncsulted but no documented site for embolization. Hbg improved and stabilized. He was discharged with recommendations for ongoing chemo treatment and monitoring. This past week patient reported worsening weakness and recurrent bleeding. Came to the ER for evaluation. INR was supra therapeutic again at 3.7. He received Vit K IV and developed chest pain, but resolved quickly. He reported similar symptom in the past with IV Vit K, but apparently tolerates oral Vit K. INR trending down today. EKG without acute changes. In the interim patient also developed cough, SOB and was febrile. Tested positive for COVID. To avoid further speak of COVID 19, cardiology consult was completed through review of records including inpatient/outpatient charts. Due to recurrent GI bleed, there was initial plans to transfer patient back to [facility] for further evaluation. However, this transfer was cancelled and plans to repeat colonoscopy tomorrow. Allergies Allergy/AdvReac Type Severity Reaction Status Date / Time phytonadione (vitamin K1) AdvReac Severe Chest Pain Verified 05/15/22 08:51 Home Medications Medication Instructions Recorded Confirmed Type amiodarone 200 mg tablet 300 mg PO Q12 09/07/19 05/13/22 History hydrocodone 5 mg-acetaminophen 325 1 tab PO Q6 PRN 09/07/19 05/13/22 History mg tablet levothyroxine 112 mcg tablet 112 mcg PO DAILYBB 01/11/20 05/13/22 History nitroglycerin 0.4 mg sublingual 0.4 mg SUBLINGUAL UD PRN 08/13/20 05/13/22 History tablet (Nitrostat) isosorbide mononitrate 30 mg 30 mg PO QPM 12/25/20 05/13/22 History tablet,extended release 24 hr metoprolol succinate 100 mg 100 mg PO BID 10/20/21 05/13/22 History tablet,extended release 24 hr ferrous sulfate 325 mg (65 mg 325 mg PO DAILY #30 tab 10/21/21 05/13/22 Rx iron) tablet,delayed release iron,carbonyl 65 mg-vitamin C 125 1 tab PO DAILY 11/14/21 05/13/22 History mg tablet,delayed release (Vitron-C) ondansetron HCl 8 mg tablet 8 mg PO Q8H PRN 12/04/21 05/13/22 History tamsulosin 0.4 mg capsule (Flomax) 0.4 mg PO HS #14 cap 12/20/21 05/13/22 Rx hydralazine 25 mg tablet 25 mg PO AMHS 04/27/22 05/13/22 History capecitabine 500 mg tablet 500 mg PO DIRECTED 05/13/22 05/13/22 History warfarin 5 mg tablet 2.5 - 5 mg PO DAILY 05/13/22 05/13/22 History Patient History Medical History Afib Maintained on low dose Amiodarone CAD (coronary artery disease) Non-obstructive per 2011 cath Cardiomyopathy Mixed ischemic and nonischemic CM - EF <20%- complicated by VT. ICD placed 2013 No VT episodes since 10/2020 per cardio records Current EF 20-25% F/U [facility] CHF (congestive heart failure) CHF (congestive heart failure) hx/no recent issues Chronic back pain CKD (chronic kidney disease) stage 3, GFR 30-59 ml/min Depression Elevated LFTs Gout History of kidney stones History of ventricular tachycardia Hypertension Hypothyroidism LBBB (left bundle branch block) Incomplete per records Left ventricular aneurysm Dx'ed around 2011- on Coumadin- cardio monitoring Moderate in size and noted to apical and inferior area. Hx of LV apical thrombus Myocardial Infarction 15+ years ago- medically managed On anticoagulant therapy WARFARIN Paroxysmal A-fib Pneumonia Pneumonia HX-2000 Presence of combination internal cardiac defibrillator (ICD) and pacemaker Implanted 2013 (follows with cardiology/Dr. Jaffe/RADHA GALLO) Sleep apnea CPAP SOB (shortness of breath) on exertion ON OCC Surgical History H/O arthroscopic knee surgery multiple on bilateral knees H/O neck surgery History of cardiac cath 2012= NO STENTS History of colonoscopy (~09/15/21) History of cystoscopy History of esophagogastroduodenoscopy (EGD) History of implantable cardioverter-defibrillator (ICD) placement History of laminectomy L4-L5 History of lithotripsy History of lumbar surgery 09/17/19 Grade 1 view Mac 3, magnet placed on L chest wall during procedure History of tonsillectomy Status post uvulopalatopharyngoplasty Family History Father , 54yo Lung cancer Mother , 85yo Alzheimer disease Brother No problems noted. Brother No problems noted. Sister No problems noted. Daughter No problems noted. Daughter No problems noted. Social History Smoking Status: Never smoker Second Hand Exposure: No; Do You Dip or Chew Tobacco: No; Tobacco Cessation Education Requested by Patient: No Hx Alcohol Use: No Hx Substance Use: No Preferred Language: Yoruba Communication Ability: Effective Visual Impairment: Limited Hearing Ability: Normal Coater Hand Required: No Beliefs That Will Affect Care: None marital status: Current Living Situation: Alone Current Living Situation Comment: dtr lives next door current occupational status: disabled Other Information That Helps Us Care for You: No Feels Safe at Home: Yes Safety Concerns: Feels Safe At This Time caffeine: No during the past year weight has: decreased > 10 lbs Assistive Devices: Review of Systems Review of Systems: Other Not obtained, as consult was completed via chart rounds. No physical exam performed. Physical Exam Physical Exam: Not performed due to + COVID 19 status and no acute cardiac issues. Results & Data ([facility]) Vital Signs (Past 12 Hours) Vital Signs Temp Pulse Resp BP Pulse Ox 05/15/22 12:02 37.4 C 61 22 130/72 93 05/15/22 07:54 37.5 C 60 18 130/73 93 05/15/22 02:37 36.8 C 64 20 119/68 92 Laboratory Results Cardiac Enzymes 05/13/22 05/13/22 05/14/22 Range/Units 14:20 21:07 04:17 Hgb 7.1 L 8.0 L 7.1 L (14.0-18.0) g/dl 05/14/22 05/14/22 05/15/22 Range/Units 12:09 18:46 08:23 Hgb 7.7 L 8.3 L 8.4 L (14.0-18.0) g/dl Coagulation 05/15/22 Range/Units 08:23 PT 21.1 H (9.0-12.0) Seconds CBC 05/14/22 05/15/22 Range/Units 18:46 08:23 WBC 5.26 (4.8-10.8) K/ul RBC 2.98 L (4.63-6.08) M/uL Hgb 8.3 L 8.4 L (14.0-18.0) g/dl Hct 25.2 L 26.5 L (40.1-51.0) % Plt Count 150 (130-400) K/uL Comprehensive Metabolic Panel 05/15/22 Range/Units 08:23 Sodium 133 L (136-145) mmol/L Potassium 4.4 (3.5-5.1) mmol/L Chloride 104 (98-107) mmol/L Carbon Dioxide 27 (21-32) mmol/L BUN 18 (6-23) mg/dl Creatinine 1.58 H (0.6-1.4) mg/dl Glucose 91 (70-99(Fasting)) mg/dl Calcium 7.7 L (8.5-10.1) mg/dl Intake and Output 05/14/22 05/15/22 05/15/22 22:59 06:59 14:59 Intake Total 431.25 / 781.75 150.5 / 781.75 178.333 / 178.333 Balance 431.25 / 380.75 150.5 / 380.75 178.333 / 178.333 Intake: IV 231.25 / 581.75 150.5 / 581.75 178.333 / 178.333 PANTOprazole 40 mg In Dextrose 181 / 381 100 / 381 178.333 / 178.333 5% 100 ml @ 8 MG/HR 20 mls/hr IV Q5H [facility] Rx#:[id number] Phytonadione 2.5 mg In Sodium 50.25 / 50.25 Chloride 0.9% 50 ml @ 100.5 mls /hr IV ONE ONE Rx#:[id number] Promethazine HCl 12.5 mg In 50.5 / 50.5 Sodium Chloride 0.9% 50 ml @ 202 mls/hr IV Q6H PRN Rx#: [id number] Oral 200 / 200 Other: Other Intake Source NPO # Unmeasured Voids 1 Weight 137.1 kg Weight Measurement Method Built in [facility] Diagnostic Findings Telemetry reviewed: intermittent atrial paced and ventricular paced. Otherwise NSR. No atrial fibrillation or VT. EKG - Atrial-paced rhythm with prolonged AV conduction Non-specific intra-ventricular conduction block Abnormal ECG When compared with ECG of 13-MAY-2022 14:13, (unconfirmed) No significant change was found Adult Transthoracic Echocardiography Report (11/17/2021) Compared to last available study, there has been no interval change. The left ventricular systolic function is severely reduced. Calculated LV ejection Fraction = 19% (three dimensional volumes). The left ventricular cavity size is severely enlarged. Diffuse myocardial thinning is present. The left ventricular systolic function is severely reduced. Calculated LV ejection Fraction = 19% (three dimensional volumes). The left ventricular cavity size is severely enlarged. Diffuse myocardial thinning is present. Grade 1 diastolic dysfunction. There is an apical left ventricular mural thrombus. The left ventricular thrombus is moderate sized. The left ventricular thrombus is flat. The left ventricular thrombus is immobile. he aortic valve has three leaflets. There is mild focal calcification of the aortic valve between the non coronary and right coronary cusps. Aortic stenosis is absent. Trace aortic valve regurgitation is present. Mild secondary mitral regurgitation Mild tricuspid regurgitation Severe left atrial enlargement. The estimated pulmonary artery systolic pressure is 27mm Hg. Medications Administered Current Inpatient Medications Acetaminophen (Acetaminophen 325 Mg Tab) 650 mg PO Q4H PRN PRN Reason: Pain or Fever Stop: 06/12/22 18:51 Last Admin: 05/13/22 21:00 Dose: 650 mg Documented by: Hydrocodone Bitart/Acetaminophen (Hydrocodone/Acetamophen 5/325mg Tab) 1 tab PO Q6H PRN PRN Reason: Pain Stop: 05/27/22 18:12 Amiodarone HCl (Amiodarone 200 Mg Tab) 300 mg PO Q12@0000,1200 [facility] Stop: 06/13/22 00:00 Last Admin: 05/15/22 11:29 Dose: 300 mg Documented by: Ascorbic Acid (Ascorbic Acid 500 Mg Tab) 250 mg PO DAILY [facility]; Protocol Stop: 06/13/22 08:59 Last Admin: 05/15/22 08:03 Dose: 250 mg Documented by: Ferrous Sulfate (Ferrous Sulfate 325 Mg Tab) 325 mg PO DAILY [facility] Stop: 06/14/22 08:59 Last Admin: 05/15/22 08:02 Dose: 325 mg Documented by: Guaifenesin (Guaifenesin Sugar Free 200 Mg/10 Ml Udc) 200 mg PO Q6H PRN PRN Reason: Cough Stop: 06/12/22 20:09 Last Admin: 05/15/22 08:05 Dose: 200 mg Documented by: Pantoprazole Sodium 40 mg/ (Dextrose) 100 mls @ 20 mls/hr IV Q5H [facility] Stop: 06/12/22 15:14 Last Admin: 05/15/22 11:57 Dose: 8 mg/hr, 20 mls/hr Documented by: Promethazine HCl 12.5 mg/ (Sodium Chloride) 50.5 mls @ 202 mls/hr IV Q6H PRN PRN Reason: Nausea And Vomiting Stop: 06/13/22 22:22 Last Infusion: 05/14/22 23:41 Dose: Infused Documented by: Isosorbide Mononitrate (Isosorbide [place] Extended Rel 30 Mg Tabcr) 30 mg PO QPM [facility] Stop: 06/12/22 20:59 Last Admin: 05/14/22 20:29 Dose: 30 mg Documented by: Levothyroxine Sodium (Levothyroxine Sodium 112 Mcg Tablet) 112 mcg PO DAILYBB [facility] Stop: 06/13/22 06:29 Last Admin: 05/15/22 06:17 Dose: 112 mcg Documented by: Metoprolol Succinate (Metoprolol Succ 25mg Ext Rel Tab) 25 mg PO BID [facility] Stop: 06/13/22 08:59 Last Admin: 05/15/22 08:04 Dose: 25 mg Documented by: Nitroglycerin (Nitroglycerin Sl 0.4 Mg/Tab Tab) 0.4 mg SL UD PRN PRN Reason: Chest Pain Stop: 06/12/22 18:12 Last Admin: 05/14/22 06:22 Dose: 0.4 mg Documented by: Potassium Chloride (Potassium Chloride Pwd 20 Meq Pack) 20 meq PO QAM ONE Stop: 05/15/22 20:01 Tamsulosin HCl (Tamsulosin Hcl 0.4 Mg Cap) 0.4 mg PO HS TASH Stop: 06/12/22 20:59 Last Admin: 05/14/22 20:29 Dose: 0.4 mg Documented by: (1) Colon cancer Colon location: unspecified part of colon Qualified Code(s): C18.9 - Malignant neoplasm of colon, unspecified
[2022-05-15] MEDS: ISOSORBIDE MONO EXTENDED REL 30 MG TABCR PO SCH (21:45)
[2022-05-15] MEDS: TAMSULOSIN HCL 0.4 MG CAP PO SCH (21:45)
[2022-05-16 00:44] LABS: BUN Creatinine Ratio 12.8 (10-20); Calcium 7.2 mg/dl (8.5-10.1); Creatinine Clr Calc Pharmacy 71.4 ml/min; Est GFR (African American) 54.4 ml/min; Est GFR (Non-African American) 46.9 ml/min; Potassium 3.8 mmol/L (3.5-5.1)
[2022-05-16] MEDS: PROMETHAZINE HCL 12.5 MG in SODIUM CHLORIDE 0.9% 50 ML IV PRN (01:58)
[2022-05-16] MEDS: PANTOprazole 40 MG in DEXTROSE 5% 100 ML IV SCH ×2 (03:20→08:43)
[2022-05-16] MEDS: LEVOTHYROXINE SODIUM 112 MCG TABLET PO SCH (05:39)
[2022-05-16 06:39] LABS: Hematocrit (blood only) 25.4 % (40.1-51.0); Hemoglobin 8.1 g/dl (14.0-18.0); Mean Corpuscular Hemoglobin 27.9 pg (25.0-34.0); Mean Corpuscular Hgb Conc 31.9 g/dL (32.0-36.0); Mean Corpuscular Volume 87.6 fL (80.0-100.0); Mean Platelet Volume 10.8 fL (9.4-12.4); Platelet Count 161 K/uL (130-400); RDW Coefficient of Variation 17.1 % (11.5-14.5); RDW Standard Deviation 54.9 fL (36.4-46.3); White Blood Count 4.36 K/ul (4.8-10.8)
[2022-05-16 06:51] LABS: INR 1.8 (0.9-1.1); Prothrombin Time 18.6 Seconds (9.0-12.0)
[2022-05-16 07:03] LABS: BUN Creatinine Ratio 12.3 (10-20); Calcium 7.3 mg/dl (8.5-10.1); Creatinine Clr Calc Pharmacy 76.3 ml/min; Est GFR (African American) 58.9 ml/min; Est GFR (Non-African American) 50.8 ml/min; Potassium 4.4 mmol/L (3.5-5.1)
--- NOTE | 2022-05-16 08:13 | Anesthesiology Consultation ---
Date of Service May 16, 2022 Assessment & Plan Chart Review Chart Review: Acceptable Risk for Surgery and Patient NOT seen in Pre Admission Testing Patient high risk from cardiac standpoint given COVID+, severely reduced EF and known LV apical thrombus, INR reversed <2, HgB >8. Consults Requested none History Surgery Operation Date: 05/16/22 10:20 Proposed Procedures p Colonoscopy - Krystal Ramirez, DO Height/Weight Height: 6 ft 1 in Weight: 137.3 kg Allergies Allergy/AdvReac Type Severity Reaction Status Date / Time phytonadione (vitamin K1) AdvReac Severe Chest Pain Verified 05/15/22 08:51 Medications Home Medications Medication Instructions Recorded Confirmed Last Taken amiodarone 200 mg tablet 300 mg PO Q12 09/07/19 05/13/22 10/20/21 hydrocodone 5 mg-acetaminophen 325 1 tab PO Q6 PRN Pain 09/07/19 05/13/22 09/08/21 08:00 mg tablet levothyroxine 112 mcg tablet 112 mcg PO DAILYBB 01/11/20 05/13/22 10/19/21 00:15 nitroglycerin 0.4 mg sublingual 0.4 mg sublingual UD PRN Chest Pain 08/13/20 05/13/22 Unknown tablet (Nitrostat) isosorbide mononitrate 30 mg 30 mg PO QPM 12/25/20 05/13/22 10/19/21 00:15 tablet,extended release 24 hr metoprolol succinate 100 mg 100 mg PO BID 10/20/21 05/13/22 10/20/21 tablet,extended release 24 hr ferrous sulfate 325 mg (65 mg 325 mg PO DAILY #30 tabs 10/21/21 05/13/22 Unknown iron) tablet,delayed release iron,carbonyl 65 mg-vitamin C 125 1 tab PO DAILY 11/14/21 05/13/22 Unknown mg tablet,delayed release (Vitron-C) ondansetron HCl 8 mg tablet 8 mg PO Q8H PRN Pain 12/04/21 05/13/22 Unknown tamsulosin 0.4 mg capsule (Flomax) 0.4 mg PO HS #14 caps 12/20/21 05/13/22 Unknown hydralazine 25 mg tablet 25 mg PO AMHS 04/27/22 05/13/22 Unknown capecitabine 500 mg tablet 500 mg PO DIRECTED 05/13/22 05/13/22 Unknown warfarin 5 mg tablet 2.5 - 5 mg PO DAILY 05/13/22 05/13/22 05/12/22 Active Medications Generic Name Dose Route Start Last Admin Trade Name Ciara PRN Reason Stop Dose Admin Acetaminophen 650 mg 05/13/22 18:52 05/13/22 21:00 Acetaminophen 325 Mg Tab PO 06/12/22 18:51 650 mg Q4H PRN Administration Pain or Fever Amiodarone HCl 300 mg 05/14/22 00:00 05/15/22 23:02 Amiodarone 200 Mg Tab PO 06/13/22 00:00 300 mg Q12@0000,1200 TASH Administration Ascorbic Acid 250 mg 05/14/22 09:00 05/15/22 08:03 Ascorbic Acid 500 Mg Tab PO 06/13/22 08:59 250 mg DAILY TASH Administration Protocol Ferrous Sulfate 325 mg 05/15/22 09:00 05/15/22 08:02 Ferrous Sulfate 325 Mg Tab PO 06/14/22 08:59 325 mg DAILY TASH Administration Guaifenesin 200 mg 05/13/22 20:10 05/15/22 23:02 Guaifenesin Sugar Free 200 Mg/10 Ml Udc PO 06/12/22 20:09 200 mg Q6H PRN Administration Cough Pantoprazole Sodium 40 mg/ 100 mls @ 20 mls/hr 05/13/22 15:15 05/16/22 03:20 Dextrose IV 06/12/22 15:14 8 mg/hr Q5H TASH 20 mls/hr Administration 8 MG/HR Promethazine HCl 12.5 mg/ 50.5 mls @ 202 mls/hr 05/14/22 22:23 05/16/22 02:15 Sodium Chloride IV 06/13/22 22:22 Infused Q6H PRN Infusion Nausea And Vomiting Isosorbide Mononitrate 30 mg 05/13/22 21:00 05/15/22 21:45 Isosorbide [place] Extended Rel 30 Mg Tabcr PO 06/12/22 20:59 30 mg QPM TASH Administration Levothyroxine Sodium 112 mcg 05/14/22 06:30 05/16/22 05:39 Levothyroxine Sodium 112 Mcg Tablet PO 06/13/22 06:29 Not Given DAILYBB TASH Metoprolol Succinate 25 mg 05/14/22 09:00 05/15/22 20:31 Metoprolol Succ 25mg Ext Rel Tab PO 06/13/22 08:59 25 mg BID TASH Administration Nitroglycerin 0.4 mg 05/13/22 18:13 05/14/22 06:22 Nitroglycerin Sl 0.4 Mg/Tab Tab SL 06/12/22 18:12 0.4 mg UD PRN Administration Chest Pain Tamsulosin HCl 0.4 mg 05/13/22 21:00 05/15/22 21:45 Tamsulosin Hcl 0.4 Mg Cap PO 06/12/22 20:59 0.4 mg HS TASH Administration Past Medical History Medical History Afib Maintained on low dose Amiodarone CAD (coronary artery disease) Non-obstructive per 2011 cath Cardiomyopathy Mixed ischemic and nonischemic CM - EF <20%- complicated by VT. ICD placed 2013 No VT episodes since 10/2020 per cardio records Current EF 20-25% F/U [facility] GALL[facility] CHF (congestive heart failure) CHF (congestive heart failure) hx/no recent issues Chronic back pain CKD (chronic kidney disease) stage 3, GFR 30-59 ml/min Depression Elevated LFTs Gout History of kidney stones History of ventricular tachycardia Hypertension Hypothyroidism LBBB (left bundle branch block) Incomplete per records Left ventricular aneurysm Dx'ed around 2011- on Coumadin- cardio monitoring Moderate in size and noted to apical and inferior area. Hx of LV apical thrombus Myocardial Infarction 15+ years ago- medically managed On anticoagulant therapy WARFARIN Paroxysmal A-fib Pneumonia Pneumonia HX-2000 Presence of combination internal cardiac defibrillator (ICD) and pacemaker Implanted 2013 (follows with cardiology/Dr. Jaffe/RADHA GALLO) Sleep apnea CPAP SOB (shortness of breath) on exertion ON OCC Past Family History Family History Father , 54yo Lung cancer Mother , 85yo Alzheimer disease Brother No problems noted. Brother No problems noted. Sister No problems noted. Daughter No problems noted. Daughter No problems noted. Past Surgical History Surgical History H/O arthroscopic knee surgery multiple on bilateral knees H/O neck surgery History of cardiac cath 2011= NO STENTS History of colonoscopy (~09/15/21) History of cystoscopy History of esophagogastroduodenoscopy (EGD) History of implantable cardioverter-defibrillator (ICD) placement History of laminectomy L4-L5 History of lithotripsy History of lumbar surgery 09/17/19 Grade 1 view Mac 3, magnet placed on L chest wall during procedure History of tonsillectomy Status post uvulopalatopharyngoplasty Social History Smoking Status: Never smoker Do You Dip or Chew Tobacco: No Hx Alcohol Use: No Hx Substance Use: No substance use type: does not use Physical Exam Vital Signs Last Vital Signs Temp 98.1 F 05/16/22 07:59 Pulse 62 05/16/22 07:59 Resp 18 05/16/22 07:59 BP 149/71 H 05/16/22 07:59 Pulse Ox 90 05/16/22 07:59 O2 Del Method 05/16/22 07:59 O2 Flow Rate 2 05/16/22 04:05 Testing Laboratory Results 05/16/22 05:57 05/16/22 05:57 PT 18.6 Seconds (9.0-12.0) H 05/16/22 05:57 INR 1.8 (0.9-1.1) H 05/16/22 05:57 Blood Type O Positive 05/13/22 15:18 Antibody Screen NEGATIVE 05/13/22 15:18 Electrocardiogram Date: 05/14/22 Atrial-paced rhythm with prolonged AV conduction Non-specific intra-ventricular conduction block Abnormal ECG Chest X-Ray Date: 05/13/22 Findings: + NAD and + cardiomegaly Echocardiogram Date: 10/21/21 EF: 25-30 RWMA: + akinetic Valvular Disease: + no significant valvular disease
--- NOTE | 2022-05-16 11:11 | History & Physical Report ---
Date of Service May 16, 2022 Assessment & Plan (1) Rectal bleeding: Plan: flex sig/colonoscopy today in the OR as patient is COVID + (2) Colon cancer: Admission and Anticipated Discharge Date Admission Date: May 13, 2022 History of Present Illness Chief Complaint: rectal bleeding Primary Care Provider: Radha Rodriguez MD known cancer on dorothea-adj chemo/XRT. Now with rectal bleeding Allergies Allergy/AdvReac Type Severity Reaction Status Date / Time phytonadione (vitamin K1) AdvReac Severe Chest Pain Verified 05/15/22 08:51 Home Medications Medication Instructions Recorded Confirmed Type amiodarone 200 mg tablet 300 mg PO Q12 09/07/19 05/13/22 History hydrocodone 5 mg-acetaminophen 325 1 tab PO Q6 PRN Pain 09/07/19 05/13/22 History mg tablet levothyroxine 112 mcg tablet 112 mcg PO DAILYBB 01/11/20 05/13/22 History nitroglycerin 0.4 mg sublingual 0.4 mg sublingual UD PRN Chest Pain 08/13/20 05/13/22 History tablet (Nitrostat) isosorbide mononitrate 30 mg 30 mg PO QPM 12/25/20 05/13/22 History tablet,extended release 24 hr metoprolol succinate 100 mg 100 mg PO BID 10/20/21 05/13/22 History tablet,extended release 24 hr ferrous sulfate 325 mg (65 mg 325 mg PO DAILY #30 tabs 10/21/21 05/13/22 Rx iron) tablet,delayed release iron,carbonyl 65 mg-vitamin C 125 1 tab PO DAILY 11/14/21 05/13/22 History mg tablet,delayed release (Vitron-C) ondansetron HCl 8 mg tablet 8 mg PO Q8H PRN Pain 12/04/21 05/13/22 History tamsulosin 0.4 mg capsule (Flomax) 0.4 mg PO HS #14 caps 12/20/21 05/13/22 Rx hydralazine 25 mg tablet 25 mg PO AMHS 04/27/22 05/13/22 History capecitabine 500 mg tablet 500 mg PO DIRECTED 05/13/22 05/13/22 History warfarin 5 mg tablet 2.5 - 5 mg PO DAILY 05/13/22 05/13/22 History Past Med/Surg History Medical History Afib Maintained on low dose Amiodarone CAD (coronary artery disease) Non-obstructive per 2011 cath Cardiomyopathy Mixed ischemic and nonischemic CM - EF <20%- complicated by VT. ICD placed 2013 No VT episodes since 10/2020 per cardio records Current EF 20-25% F/U RADAH GALLO CHF (congestive heart failure) CHF (congestive heart failure) hx/no recent issues Chronic back pain CKD (chronic kidney disease) stage 3, GFR 30-59 ml/min Depression Elevated LFTs Gout History of kidney stones History of ventricular tachycardia Hypertension Hypothyroidism LBBB (left bundle branch block) Incomplete per records Left ventricular aneurysm Dx'ed around 2011- on Coumadin- cardio monitoring Moderate in size and noted to apical and inferior area. Hx of LV apical thrombus Myocardial Infarction 15+ years ago- medically managed On anticoagulant therapy WARFARIN Paroxysmal A-fib Pneumonia Pneumonia HX-2000 Presence of combination internal cardiac defibrillator (ICD) and pacemaker Implanted 2013 (follows with cardiology/Dr. Jaffe/RADHA GALLO) Sleep apnea CPAP SOB (shortness of breath) on exertion ON OCC Surgical History H/O arthroscopic knee surgery multiple on bilateral knees H/O neck surgery History of cardiac cath 2011= NO STENTS History of colonoscopy (~09/15/21) History of cystoscopy History of esophagogastroduodenoscopy (EGD) History of implantable cardioverter-defibrillator (ICD) placement History of laminectomy L4-L5 History of lithotripsy History of lumbar surgery 09/17/19 Grade 1 view Mac 3, magnet placed on L chest wall during procedure History of tonsillectomy Status post uvulopalatopharyngoplasty Family History Father , 54yo Lung cancer Mother , 85yo Alzheimer disease Brother No problems noted. Brother No problems noted. Sister No problems noted. Daughter No problems noted. Daughter No problems noted. Social History Smoking Status: Never smoker Second Hand Exposure: No; Do You Dip or Chew Tobacco: No; Tobacco Cessation Education Requested by Patient: No Hx Alcohol Use: No Hx Substance Use: No Preferred Language: [place] Citizen Communication Ability: Effective Visual Impairment: Limited Hearing Ability: Normal Refining Supervisor Required: No Beliefs That Will Affect Care: None marital status: Current Living Situation: Alone Current Living Situation Comment: dtr lives next door current occupational status: disabled Other Information That Helps Us Care for You: No Feels Safe at Home: Yes Safety Concerns: Feels Safe At This Time caffeine: No during the past year weight has: decreased > 10 lbs Assistive Devices: Scooter/Electric Scooter Results & Data ([facility]) Vital Signs (Past 12 Hours) Vital Signs Temp Pulse Resp BP Pulse Ox O2 Del Method O2 Flow Rate 05/16/22 08:00 Nasal Cannula 2 05/16/22 07:59 36.7 C 62 18 149/71 H 90 Room Air 05/16/22 04:05 36.7 C 63 18 117/67 90 Nasal Cannula 2 Code Status & VTE Plan VTE Prophylaxis Plan VTE Prophylaxis will be ordered: Yes (1) Colon cancer Colon location: unspecified part of colon Qualified Code(s): C18.9 - Malignant neoplasm of colon, unspecified
[2022-05-16] MEDS ORDERED: ePHEDrine sulfate 50 MG/ML AMP ONE (11:15)
[2022-05-16] MEDS ORDERED: LIDOCAINE 2% MPF LOCAL 5 ML VIAL INFIL ONE (11:15)
[2022-05-16] MEDS ORDERED: PROPOFOL IV EMULSION 10 MG/ML 20 ML VIAL IV ONE (11:15)
[2022-05-16] MEDS ORDERED: ATROPINE SO4 1 MG/ML 1ML VIAL ONE (11:15)
[2022-05-16] MEDS ORDERED: PHENYLEPHRINE 100MCG/ML 5ML SYR ONE (11:15)
[2022-05-16] MEDS ORDERED: EPINEPHrine INJ 1 MG/ML AMP ONE (11:15)
--- NOTE | 2022-05-16 11:48 | GI REPORT ---
Patient Name: Alexander Trujillo Procedure Date: 05/16/2022 11:05 AM Date of : 1960 Admit Type: Inpatient Age: 61 Gender: Male Attending MD: Krystal Ramirez DO Procedure: Flexible Sigmoidoscopy Providers: Krystal Ramirez DO Referring MD: Olamide Chaudhary Do Indications: Hematochezia Medicines: Propofol per Anesthesia Complications: No immediate complications. Estimated blood loss: Minimal. Estimated Blood Loss: Estimated blood loss was minimal. Procedure: Pre-Anesthesia Assessment: - Prior to the procedure, a History and Physical was performed, and patient medications, allergies and sensitivities were reviewed. The patient's tolerance of previous anesthesia was reviewed. - The risks and benefits of the procedure and the sedation options and risks were discussed with the patient. All questions were answered and informed consent was obtained. - Patient identification and proposed procedure were verified prior to the procedure by the physician and the nurse. The procedure was verified in the pre-procedure area in the procedure room. - Mental Status Examination: alert and oriented. Airway Examination: normal oropharyngeal airway and neck mobility. Respiratory Examination: clear to auscultation. CV Examination: normal. Abdominal Examination: bowel sounds present, abdomen soft and non-tender, no masses or organomegaly noted. - ASA Grade Assessment: IV - A patient with severe systemic disease that is a constant threat to life. After obtaining informed consent, the endoscope was passed under direct vision. Throughout the procedure, the patient's blood pressure, pulse, and oxygen saturations were monitored continuously. The scope was introduced through the anus and advanced to the descending colon. After obtaining informed consent, the endoscope was passed under direct vision. Throughout the procedure, the patient's blood pressure, pulse, and oxygen saturations were monitored continuously.The flexible sigmoidoscopy was accomplished without difficulty. The patient tolerated the procedure well. The quality of the bowel preparation was good. Findings: The perianal and digital rectal examinations were normal. Pertinent negatives include normal sphincter tone and no palpable rectal lesions. An ulcerated non-obstructing mass was found in the rectum. The mass was partially circumferential (involving one-half of the lumen circumference). Oozing was present. 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 No discreet target or vessel.. - No specimens collected. Recommendation: - [facility] care. - OK to advance diet - If patient to be restarted on anticoagulation, would aim for lowest possible end of the therapeutic range. - Further treatment plan per oncology and surgery as outpatient. Krystal Ramirez D.O. Krystal Ramirze, 05/16/2022 11:47:55 AM This report has been signed electronically. Note Initiated On: 05/16/2022 11:05 AM Number of Addenda: 0 I attest to the content of the Intraoperative Record and orders documented therein, exceptions below {[id number]}
--- NOTE | 2022-05-16 12:24 | Anesthesiology Progress Note ---
Date of Service May 16, 2022 Anesthesia Post Procedure Vital Signs Vital Signs: Temp Pulse Pulse Resp BP Pulse Ox O2 Del Method 05/16/22 12:08 59 L 20 135/64 99 Nasal Cannula 05/16/22 12:02 62 18 128/71 97 Nasal Cannula 05/16/22 11:52 59 L 18 115/43 L 98 Nasal Cannula 05/16/22 11:37 59 L 18 106/44 L 94 Nasal Cannula 05/16/22 11:21 61 20 132/66 96 Nasal Cannula 05/16/22 08:00 Nasal Cannula 05/16/22 07:59 98.1 F 62 18 149/71 H 90 Room Air 05/16/22 04:05 98.1 F 63 18 117/67 90 Nasal Cannula 05/15/22 23:00 76 05/15/22 20:30 Nasal Cannula 05/15/22 22:13 98.4 F 62 16 125/65 95 Nasal Cannula 05/15/22 20:29 98.2 F 62 18 115/63 93 Nasal Cannula 05/15/22 15:00 60 05/15/22 15:00 Room Air O2 Flow Rate 05/16/22 12:08 2 05/16/22 12:02 2 05/16/22 11:52 2 05/16/22 11:37 2 05/16/22 11:21 2 05/16/22 08:00 2 05/16/22 07:59 05/16/22 04:05 2 05/15/22 23:00 05/15/22 20:30 2 05/15/22 22:13 2 05/15/22 20:29 2 05/15/22 15:00 05/15/22 15:00 Pain Intensity Medial Abdomen: Pain Intensity: 0 Transfer of Care Handoff Completed per policy Notes Mental Status: alert / awake / arousable and participated in evaluation Patient Amnestic to Procedure: Yes Nausea / Vomiting: adequately controlled Pain: adequately controlled Airway Patency, RR, SpO2: stable & adequate BP & HR: stable & adequate Hydration State: stable & adequate Anesthetic Complications: no major complications apparent and Pt Satisfied with anesthetic care
[2022-05-16] MEDS: AMIODARONE 200 MG TAB PO SCH ×2 (12:33→23:58)
[2022-05-16] MEDS: ASCORBIC ACID 500 MG TAB PO SCH (12:35)
[2022-05-16] MEDS: METOPROLOL SUCC 25MG EXT REL TAB PO SCH ×2 (12:36→20:42)
[2022-05-16] MEDS: FERROUS SULFATE 325 MG TAB PO SCH (12:37)
[2022-05-16] MEDS: guaiFENesin SUGAR FREE 200 MG/10 ML UDC PO PRN ×2 (12:38→21:29)
--- NOTE | 2022-05-16 14:42 | Hospitalist Progress Note ---
Date of Service May 16, 2022 Assessment & Plan (1) Rectal bleeding: Plan: (1) Colon cancer: (2) ABLA (acute blood loss anemia): (3) Acute GI bleeding: (4) COVID-19: (5) Paroxysmal A-fib: (6) CAD (coronary artery disease): (7) Ischemic cardiomyopathy with implantable cardioverter-defibrillator (ICD): (8) Non-sustained ventricular tachycardia: (9) CKD (chronic kidney disease) stage 3, GFR 30-59 ml/min: (10) Sleep apnea: Plan: This is a 61 yo M with PMH of mixed ischemic and nonischemic cardiomyopathy, v- tach, s/p ICD, CAD, h/o left ventricular apical thrombus, paroxysmal atrial fibrillation anticoagulated on warfarin, HTN, dyslipidemia, CKD III, MARIANNA, hypothyroidism, anxiety, elevated LFT's and recently diagnosed colon cancer in 2020 who presents to ED with SOB, congestion as well as continued bleeding per rectum. Patient was admitted a few weeks ago for rectal bleed in the setting of known colon cancer with biopsies consistent with an infiltrating well differentiated carcinoma. Was transferred to [facility] for care from colorectal service by Dr. Sanchez given complexity of patient with need for continued anticoagulation without interruption and persistent cancer related to GI bleeding. [facility] Colorectal service felt bleeding was attributed primarily to supratherapeutic INR and discharged once bleeding resolved. Per patient's report, colorectal surgery is planning on surgical intervention once he completes the next cycle of chemo. Returns with black stool with some bright red blood present x 2 days, INR of 3.7, epigastric abdominal pain worsening over past month and hgb of 7 (hgb of 9 on 04/30/22). Was given 2 units of blood with improvement in H/H. Flex sigmoidoscopy results as above. Managed expectations that hematochezia is going to be expected given ongoing oozing. Pt is s/p XRT therapy and tissue is fri able. Will keep INR at goal and try not to allow him to be supratherapeutic. Warfarin was restarted today given known h/o LV mural thrombus and low EF. Sigmoid/Rectal Colon Ca, T3 Follows medical onc Dr. Spence, currently receiving Capox therapy, last tx 4 weeks ago and due to resume in 4 days Completed Capecitabine concurrent with XRT 01/08/[address] Mosquera [facility] with colorectal No evidence of mets, CT on 04/27/22 showedIll-defined suspicious mass within the hepatic dome measures up to 6.1 cm, mildly increased in size from the prior study. Previously liver bx showed severe hepatic steatosis and marked bridging fibrosis with occasional nodule, but does not appear to be a target bx. Will likely need bx of particular lesion to r/o mets Worsening upper abdominal pain over past month. Consider re-imaging abdomen once patient more stable GI following while inpt. Pt to follow up w/ colorect. surg. as outpt., as above Covid 19 Developed symptoms over past few days, tested positive today, 05/13/22 Oxygen saturation has now dropped and this is likely related to pulmonary edema seen on CXR after blood transfusions this admission in setting of low EF Requiring 2LPM oxygen at rest. Started decadron, but holding on remdesivir given elevated transaminases. Cont isolation precautions. Ischemic cardiomyopathy ICD in place Paroxysmal V. tach-plans for ablation with O/P EP doc after chemotherapy. PAF H/o L ventricular apical thrombus CAD HTN Continue amiodarone, Imdur and metoprolol with hold parameters Hold ASA, warfarin, Lasix and hydralazine while hypotensive Follows with [facility] cardiology CKD -3 Baseline cr 1.4-1.5 Bun/cr stable Avoid nephrotoxic agents MARIANNA Cpap at HS DVT ppx:SCDS, warfarin restarted Code status: FULL Dispo:PCU PCP: Dr. Jennifer Chaudhary, [facility] Hospitalist Admission and Anticipated Discharge Date Admission Date: May 13, 2022 Subjective Patient seen in follow-up of anemia, lightheadedness, positive COVID-19, GI bleed underwent flex sign this am-results were friable tissue with oozing. May expect some bleeding Also saw an ulcerated nonobstructing mass in the rectum oozing was present. There was no discrete target or vessel to treat and there were no specimens collected. Diet was advanced and he is tolerating food well postprocedure. He is on warfarin for a LV mural wall thrombus in the setting of EF<20%. Last view of this was on echo in Nov 25. He came in with a supratherapeutic INR, and this needs to be more tightly controlled with ongoing bleeding until his planned colorectal surgery INR 1.8 today and restarted his warfarin. We discussed this plan. Patient reports feeling very short of breath with minimal exertion today. He received two units of blood over the past few days and no diuretic was given CXR now revealing pulmonary edema Pt denies any chest pain +cough present Review of Systems Review of Systems: All systems reviewed negative except as indicated above. Physical Exam Physical Exam: CONSTITUTIONAL: obese vitals as above, generally well-appearing, NAD EYES: normal conjunctivae, no scleral icterus, ENT: external ear and nose normal, MMM NECK: trachea midline, RESPIRATORY: clear to auscultation bilaterally, no crackles, rales or wheezes, normal respiratory effort CARDIOVASCULAR: regular rate and rhythm, S1 and 2 heard without murmurs, gallops or rubs, no JVD, no peripheral edema, GASTROINTESTINAL: soft, nontender, protuberant, ND, no guarding MUSCULOSKELETAL: strength 5/5 throughout, head is normocephalic and atraumatic SKIN: warm and dry NEUROLOGIC: CN 2-12 grossly intact, no sensory deficit, normal cognition, normal speech, no tremor PSYCHIATRIC: alert cooperative and oriented to person, place and time. Euthymic mood, makes good eye contact, language grossly intact, recent and remote memory grossly intact. Results & Data Results & Data ([facility]) Vital Signs (Past 12 Hours) Vital Signs Temp Pulse Resp BP Pulse Ox O2 Del Method O2 Flow Rate 05/16/22 12:28 36.7 C 61 20 150/71 H 96 Nasal Cannula 2 05/16/22 12:08 59 L 20 135/64 99 Nasal Cannula 2 05/16/22 12:02 62 18 128/71 97 Nasal Cannula 2 05/16/22 11:52 59 L 18 115/43 L 98 Nasal Cannula 2 05/16/22 11:37 59 L 18 106/44 L 94 Nasal Cannula 2 05/16/22 11:21 61 20 132/66 96 Nasal Cannula 2 05/16/22 08:00 Nasal Cannula 2 05/16/22 07:59 36.7 C 62 18 149/71 H 90 Room Air 05/16/22 04:05 36.7 C 63 18 117/67 90 Nasal Cannula 2 Laboratory Results Short CBC 05/16/22 Range/Units 05:57 WBC 4.36 L (4.8-10.8) K/ul Hgb 8.1 L (14.0-18.0) g/dl Hct 25.4 L (40.1-51.0) % Plt Count 161 (130-400) K/uL BMP 05/15/22 05/16/22 23:51 05:57 Sodium 131 L 134 L Potassium 3.8 4.4 Chloride 102 103 Carbon Dioxide 26 29 BUN 20 18 Creatinine 1.56 H 1.46 H Glucose 152 H 90 Calcium 7.2 L 7.3 L Medications Administered Current Inpatient Medications Acetaminophen (Acetaminophen 325 Mg Tab) 650 mg PO Q4H PRN PRN Reason: Pain or Fever Stop: 06/12/22 18:51 Last Admin: 05/13/22 21:00 Dose: 650 mg Hydrocodone Bitart/Acetaminophen (Hydrocodone/Acetamophen 5/325mg Tab) 1 tab PO Q6H PRN PRN Reason: Pain Stop: 05/27/22 18:12 Amiodarone HCl (Amiodarone 200 Mg Tab) 300 mg PO Q12@0000,1200 [facility] Stop: 06/13/22 00:00 Last Admin: 05/16/22 12:33 Dose: 300 mg Ascorbic Acid (Ascorbic Acid 500 Mg Tab) 250 mg PO DAILY [facility]; Protocol Stop: 06/13/22 08:59 Last Admin: 05/16/22 12:35 Dose: 250 mg Ferrous Sulfate (Ferrous Sulfate 325 Mg Tab) 325 mg PO DAILY [facility] Stop: 06/14/22 08:59 Last Admin: 05/16/22 12:37 Dose: 325 mg Guaifenesin (Guaifenesin Sugar Free 200 Mg/10 Ml Udc) 200 mg PO Q6H PRN PRN Reason: Cough Stop: 06/12/22 20:09 Last Admin: 05/16/22 12:38 Dose: 200 mg Promethazine HCl 12.5 mg/ (Sodium Chloride) 50.5 mls @ 202 mls/hr IV Q6H PRN PRN Reason: Nausea And Vomiting Stop: 06/13/22 22:22 Last Infusion: 05/16/22 02:15 Dose: Infused Isosorbide Mononitrate (Isosorbide [place] Extended Rel 30 Mg Tabcr) 30 mg PO QPM [facility] Stop: 06/12/22 20:59 Last Admin: 05/15/22 21:45 Dose: 30 mg Levothyroxine Sodium (Levothyroxine Sodium 112 Mcg Tablet) 112 mcg PO DAILYBB [facility] Stop: 06/13/22 06:29 Last Admin: 05/16/22 05:39 Dose: Not Given Metoprolol Succinate (Metoprolol Succ 25mg Ext Rel Tab) 25 mg PO BID [facility] Stop: 06/13/22 08:59 Last Admin: 05/16/22 12:36 Dose: 25 mg Nitroglycerin (Nitroglycerin Sl 0.4 Mg/Tab Tab) 0.4 mg SL UD PRN PRN Reason: Chest Pain Stop: 06/12/22 18:12 Last Admin: 05/14/22 06:22 Dose: 0.4 mg Tamsulosin HCl (Tamsulosin Hcl 0.4 Mg Cap) 0.4 mg PO HS [facility] Stop: 06/12/22 20:59 Last Admin: 05/15/22 21:45 Dose: 0.4 mg Warfarin Sodium (Warfarin Sod 2.5 Mg Tab) 2.5 mg PO DAILY@1600 [facility] Stop: 06/15/22 15:59
[2022-05-16] MEDS ORDERED: COUGH DROP (SUGAR FREE) LOZ 24 LOZ/1 BOX BUCCAL ONE (15:30)
--- NOTE | 2022-05-16 15:38 | XRay Report ---
SINGLE VIEW CHEST CLINICAL HISTORY: Hypoxia. Covid. Dyspnea on exertion. FINDINGS: An AP, portable, semierect chest radiograph is compared to study dated 05/13/2022. [facility] [place] is degraded by portable technique and apical lordotic positioning. A 2-lead cardiac AICD is un changed in position. The heart is enlarged noting atherosclerotic calcification of the thoracic aorta . There is pulmonary vascular congestion. Chronic elevation of the right hemidiaphragm is similar to previous. Bilateral airspace opacities likely represent pulmonary edema. There is bibasilar scarring/ atelectasis. Small pleural effusions are suspected. No pneumothorax is seen. The skeletal structures are osteopenic. The bony thorax is grossly intact. IMPRESSION: 1. Cardiomegaly and AICD with evidence of congestive failure. 2. Bilateral airspace opacities likely represent pulmonary edema. Correlate clinically for evidence o f a superimposed infectious/inflammatory pneumonitis. 3. Suspect small pleural effusions. ACT 112: Negative or not required by law. Electronically signed by: Joe Todd M.D. 05/16/2022 3:37 PM
[2022-05-16] MEDS: dexAMETHasone 6 MG in SYRINGE 0 ML IV SCH (15:39)
[2022-05-16] MEDS: WARFARIN SOD 2.5 MG TAB PO SCH (15:40)
[2022-05-16 16:08] LABS: Alanine Aminotransferase 67 U/L (7-52); Aspartate Aminotransferase 129 U/L (13-39)
[2022-05-16] MEDS ORDERED: FUROSEMIDE 40 MG/4 ML VIAL IV ONE (18:45)
[2022-05-16] MEDS: DOCUSATE SODIUM 100 MG CAP PO SCH (20:42)
[2022-05-16] MEDS: TAMSULOSIN HCL 0.4 MG CAP PO SCH (20:43)
[2022-05-16] MEDS: ISOSORBIDE MONO EXTENDED REL 30 MG TABCR PO SCH (21:29)
[2022-05-17] MEDS: LEVOTHYROXINE SODIUM 112 MCG TABLET PO SCH (05:18)
--- NOTE | 2022-05-17 07:44 | Hospitalist Progress Note ---
Date of Service May 17, 2022 Assessment & Plan (1) Rectal bleeding: Plan: (1) Colon cancer: (2) ABLA (acute blood loss anemia): (3) Acute GI bleeding: (4) COVID-19: (5) hpoxia 2/2 pulmonary edema vs pneumonia (viral vs bacterial) (5) Paroxysmal A-fib: (6) CAD (coronary artery disease): (7) Ischemic cardiomyopathy with implantable cardioverter-defibrillator (ICD): (8) Non-sustained ventricular tachycardia: (9) Acute kidney failure (10) Elevated transaminases (11) Sleep apnea: Plan: This is a 61 yo M with PMH of mixed ischemic and nonischemic cardiomyopathy, v- tach, s/p ICD, CAD, h/o left ventricular apical thrombus, paroxysmal atrial fibrillation anticoagulated on warfarin, HTN, dyslipidemia, CKD III, MARIANNA, hypothyroidism, anxiety, elevated LFT's and recently diagnosed colon cancer in 2020 who presents to ED with SOB, congestion as well as continued bleeding per rectum. Patient was admitted a few weeks ago for rectal bleed in the setting of known colon cancer with biopsies consistent with an infiltrating well differentiated carcinoma. Was transferred to [facility] [place] care from colorectal service by Dr. Sanchez given complexity of patient with need for continued anticoagulation without interruption and persistent cancer related to GI bleeding. [facility] Colorectal service felt bleeding was attributed primarily to supratherapeutic INR and discharged once bleeding resolved. Per patient's report, colorectal surgery is planning on surgical intervention once he completes the next cycle of chemo. Returns with black stool with some bright red blood present x 2 days, INR of 3.7, epigastric abdominal pain worsening over past month and hgb of 7 (hgb of 9 on 04/30/22). Was given 2 units of blood with improvement in H/H. Flex sigmoidoscopy results as above. Managed expectations that hematochezia is going to be expected given ongoing oozing. Pt is s/p XRT therapy and tissue is friable. Will keep INR at goal and try not to allow him to be supratherapeutic. Warfarin was restarted 05/16 given known h/o LV mural thrombus and low EF. 05/17: INR subtherapeutic at 1.7, cont low dose warfarin Sigmoid/Rectal Colon Ca, T3 Follows medical onc Dr. Spence, currently receiving Capox therapy, last tx 4 w eeks ago and due to resume in 4 days Completed Capecitabine concurrent with XRT 01/08/[address] Mosquera [facility] with colorectal No evidence of mets, CT on 04/27/22 showedIll-defined suspicious mass within the hepatic dome measures up to 6.1 cm, mildly increased in size from the prior study. Previously liver bx showed severe hepatic steatosis and marked bridging fibrosis with occasional nodule, but does not appear to be a target bx. Will likely need biopsy of particular lesion to r/o mets to liver GI following while inpt. Pt to follow up w/ colorect. surg. as outpt., as above Covid 19 Developed symptoms over past few days, tested positive today, 05/13/22 Oxygen saturation has now dropped and this is likely related to pulmonary edema seen on CXR after blood transfusions this admission in setting of low EF Requiring 2LPM oxygen at rest. Started decadron, but holding on remdesivir given elevated transaminases. Cont isolation precautions. 05/17: Elevated tranaminases thought 2/2 covid-19--RUQ us performed today and reveals fatty liver which is known to patient. No evidence of obstruction HYPOXIA 2/2 PULMONARY EDEMA AND/OR PNA 05/17: Procalcitonin elevated, pna possible on CXR and patent with coughing, started Rocephin/doxycycline for secondary antibacterial coverage. Cont decadron started yesterday at least one more day while still hypoxic. Gave another dose of Lasix and will cont to monitor for effect. Likely will redose in am. Robitussin AC started for cough symptoms. Ischemic cardiomyopathy ICD in place Paroxysmal V. tach-plans for ablation with O/P EP doc after chemotherapy. PAF H/o L ventricular apical thrombus CAD HTN Continue amiodarone, Imdur and metoprolol with hold parameters Hold ASA, warfarin, Lasix and hydralazine while hypotensive Follows with [facility] cardiology 05/17: transfer back to PCU for continued monitoring while diuresing pulmonary edema CKD -3 Baseline cr 1.4-1.5 Bun/cr stable Avoid nephrotoxic agents MARIANNA Cpap at HS DVT ppx:SCDS, warfarin restarted Code status: FULL Dispo:PCU PCP: Dr. Jennifer Chaudhary DO [facility] Hospitalist (2) Acute kidney failure: Admission and Anticipated Discharge Date Admission Date: May 13, 2022 Subjective Patient seen in follow-up of anemia, lightheadedness, positive COVID-19, GI bleed Still some dry coughing and crackles in lungs Lasix reportedly helped his cough yesterday Procalc elevated and still coughing with ? PNa on CXR started abx for additional coverage with underlying comorbidities feeling slightly better able to move around the room more but still reporting weakness still some dyspnea with exertion denies chest pain tolerating solid food no blood per rectum yet as no BM since scope yesterday Review of Systems Review of Systems: All systems reviewed and negative except as indicated above. Physical Exam Physical Exam: CONSTITUTIONAL: obese vitals as above, generally well- appearing, NAD EYES: normal conjunctivae, no scleral icterus, ENT: external ear and nose normal, MMM NECK: trachea midline, RESPIRATORY: Crackles at bases bilaterally, no rales or wheezes, normal respiratory effort. + Coughing CARDIOVASCULAR: regular rate and rhythm, S1 and 2 heard without murmurs, gallops or rubs, no JVD, no peripheral edema, GASTROINTESTINAL: soft, nontender, protuberant, ND, no guarding MUSCULOSKELETAL: strength 5/5 throughout, head is normocephalic and atraumatic SKIN: warm and dry NEUROLOGIC: CN 2-12 grossly intact, no sensory deficit, normal cognition, normal speech, no tremor PSYCHIATRIC: alert cooperative and oriented to person, place and time. Euthymic mood, makes good eye contact, language grossly intact, recent and remote memory grossly intact. Results & Data Results & Data ([facility]) Vital Signs (Past 12 Hours) Vital Signs Temp Pulse Resp BP BP Pulse Ox O2 Del Method 05/17/22 07:25 Nasal Cannula 05/17/22 07:17 36.6 C 81 18 95/57 L 93 CPAP 05/16/22 23:55 71 112/62 05/16/22 20:40 37.4 C 74 20 141/83 H 97 Nasal Cannula O2 Flow Rate 05/17/22 07:25 3 05/17/22 07:17 05/16/22 23:55 05/16/22 20:40 3 Laboratory Results Short CBC 05/17/22 Range/Units 09:42 WBC 3.41 L (4.8-10.8) K/ul Hgb 8.5 L (14.0-18.0) g/dl Hct 26.3 L (40.1-51.0) % Plt Count 161 (130-400) K/uL BMP 05/17/22 09:42 Sodium 136 Potassium 4.4 Chloride 103 Carbon Dioxide 29 BUN 20 Creatinine 1.41 H Glucose 107 H Calcium 7.7 L Liver Function 05/16/22 05/17/22 Range/Units 05:57 09:42 Total Bilirubin 0.5 (0.2-1.0) mg/dl AST 129 H 98 H (13-39) U/L ALT 67 H 59 H (7-52) U/L Alkaline Phosphatase 100 (34-104) U/L Albumin 2.7 L (3.4-5.0) gm/dl Diagnostic Findings Liver Ultrasound 05/17/22 07:43 US liver CLINICAL HISTORY: elevated LFTs. COMPARISON: 04/11/2014 TECHNIQUE: Multiple grayscale and color images of the right upper quadrant of the abdomen. FINDINGS: Pancreas: The pancreas is within normal limits with no focal mass or peripancreatic fluid collection identified. Liver: The liver is again increased in echogenicity characteristic of fatty in filtration. There is again hepatomegaly with the liver measuring approximately 24 cm in greatest length. There is no evidence for a focal mass. There is no intrahepatic biliary duct dilatation. Gallbladder: The gallbladder is well distended with no evidence of cholelithiasis, wall thickening or pericholecystic edema. Incidental note is made of a phrygian cap. Common Bile Duct: (CBD): It is normal in size measuring 5 mm. Inferior Vena Cava (IVC): The imaged IVC is patent. Right kidney: There is no evidence for hydronephrosis, calculus or gross renal mass. The kidney is lobulated in contour. There are a few sharply defined cyst present. The kidney is normal in size. IMPRESSION: 1. Compared to previous examination, there is again evidence for hepatomegaly with diffuse fatty infiltration of the liver. ACT 112: Negative or not required by law. Electronically signed by: Satish Sunshine M.D. 05/17/2022 10:26 AM Medications Administered Current Inpatient Medications Acetaminophen (Acetaminophen 325 Mg Tab) 650 mg PO Q4H PRN PRN Reason: Pain or Fever Stop: 06/12/22 18:51 Last Admin: 05/13/22 21:00 Dose: 650 mg Hydrocodone Bitart/Acetaminophen (Hydrocodone/Acetamophen 5/325mg Tab) 1 tab PO Q6H PRN PRN Reason: Pain Stop: 05/27/22 18:12 Amiodarone HCl (Amiodarone 200 Mg Tab) 300 mg PO Q12@0000,1200 [facility] Stop: 06/13/22 00:00 Last Admin: 05/17/22 11:58 Dose: 300 mg Ascorbic Acid (Ascorbic Acid 500 Mg Tab) 250 mg PO DAILY [facility]; Protocol Stop: 06/13/22 08:59 Last Admin: 05/17/22 09:56 Dose: 250 mg Docusate Sodium (Docusate Sodium 100 Mg Cap) 100 mg PO BID TASH Stop: 06/15/22 20:59 Last Admin: 05/17/22 10:21 Dose: 100 mg Doxycycline Hyclate (Doxycycline Hyclate 100 Mg Cap) 100 mg PO BID [facility]; Protocol Stop: 05/24/22 20:59 Ferrous Sulfate (Ferrous Sulfate 325 Mg Tab) 325 mg PO DAILY TASH Stop: 06/14/22 08:59 Last Admin: 05/17/22 09:55 Dose: 325 mg Guaifenesin/Codeine Phosphate (Guaifenesin/Codeine 200mg/20mg 10ml Udc) 10 ml PO Q6H PRN PRN Reason: Cough Stop: 06/16/22 13:22 Promethazine HCl 12.5 mg/ (Sodium Chloride) 50.5 mls @ 202 mls/hr IV Q6H PRN PRN Reason: Nausea And Vomiting Stop: 06/13/22 22:22 Last Infusion: 05/16/22 02:15 Dose: Infused Dexamethasone 6 mg/ Syringe 1.5 mls @ 1 mls/min IV DAILY TASH Stop: 06/15/22 14:44 Last Admin: 05/17/22 09:52 Dose: 1 mls/min Ceftriaxone Sodium 2,000 mg/ (Dextrose) 70 mls @ 100 mls/hr IV DAILY [facility]; Protocol Stop: 05/24/22 13:29 Last Infusion: 05/17/22 15:18 Dose: Infused Isosorbide Mononitrate (Isosorbide [place] Extended Rel 30 Mg Tabcr) 30 mg PO QPM TASH Stop: 06/12/22 20:59 Last Admin: 05/16/22 21:29 Dose: 30 mg Levothyroxine Sodium (Levothyroxine Sodium 112 Mcg Tablet) 112 mcg PO DAILYBB [facility] Stop: 06/13/22 06:29 Last Admin: 05/17/22 05:18 Dose: 112 mcg Metoprolol Succinate (Metoprolol Succ 25mg Ext Rel Tab) 25 mg PO BID [facility] Stop: 06/13/22 08:59 Last Admin: 05/17/22 09:55 Dose: 25 mg Nitroglycerin (Nitroglycerin Sl 0.4 Mg/Tab Tab) 0.4 mg SL UD PRN PRN Reason: Chest Pain Stop: 06/12/22 18:12 Last Admin: 05/14/22 06:22 Dose: 0.4 mg Tamsulosin HCl (Tamsulosin Hcl 0.4 Mg Cap) 0.4 mg PO HS [facility] Stop: 06/12/22 20:59 Last Admin: 05/16/22 20:43 Dose: 0.4 mg Warfarin Sodium (Warfarin Sod 2.5 Mg Tab) 2.5 mg PO DAILY@1600 [facility] Stop: 06/15/22 15:59 Last Admin: 05/16/22 15:40 Dose: 2.5 mg
[2022-05-17 09:48] LABS: Hematocrit (blood only) 26.3 % (40.1-51.0); Hemoglobin 8.5 g/dl (14.0-18.0); Mean Corpuscular Hgb Conc 32.3 g/dL (32.0-36.0); Mean Corpuscular Volume 89.8 fL (80.0-100.0); Mean Platelet Volume 10.2 fL (9.4-12.4); Platelet Count 161 K/uL (130-400); RDW Coefficient of Variation 17.2 % (11.5-14.5); RDW Standard Deviation 55.2 fL (36.4-46.3); Red Blood Count 2.93 M/uL (4.63-6.08); White Blood Count 3.41 K/ul (4.8-10.8)
[2022-05-17] MEDS: dexAMETHasone 6 MG in SYRINGE 0 ML IV SCH (09:52)
[2022-05-17] MEDS: guaiFENesin SUGAR FREE 200 MG/10 ML UDC PO PRN (09:54)
[2022-05-17] MEDS: FERROUS SULFATE 325 MG TAB PO SCH (09:55)
[2022-05-17] MEDS: METOPROLOL SUCC 25MG EXT REL TAB PO SCH ×2 (09:55→21:46)
[2022-05-17] MEDS: ASCORBIC ACID 500 MG TAB PO SCH (09:56)
[2022-05-17 09:57] LABS: INR 1.7 (0.9-1.1); Prothrombin Time 17.2 Seconds (9.0-12.0)
[2022-05-17] MEDS: DOCUSATE SODIUM 100 MG CAP PO SCH ×2 (10:21→21:44)
--- NOTE | 2022-05-17 10:27 | Ultrasound Report ---
US liver CLINICAL HISTORY: elevated LFTs. COMPARISON: 04/11/2014 TECHNIQUE: Multiple grayscale and color images of the right upper quadrant of the abdomen. FINDINGS: Pancreas: The pancreas is within normal limits with no focal mass or peripancreatic fluid collection identified. Liver: The liver is again increased in echogenicity characteristic of fatty infiltration. There is ag ain hepatomegaly with the liver measuring approximately 24 cm in greatest length. There is no evidenc e for a focal mass. There is no intrahepatic biliary duct dilatation. Gallbladder: The gallbladder is well distended with no evidence of cholelithiasis, wall thickening or pericholecystic edema. Incidental note is made of a phrygian cap. Common Bile Duct: (CBD): It is normal in size measuring 5 mm. Inferior Vena Cava (IVC): The imaged IVC is patent. Right kidney: There is no evidence for hydronephrosis, calculus or gross renal mass. The kidney is lo bulated in contour. There are a few sharply defined cyst present. The kidney is normal in size. IMPRESSION: 1. Compared to previous examination, there is again evidence for hepatomegaly with diffuse fatty infi ltration of the liver. ACT 112: Negative or not required by law. Electronically signed by: Satish Sunshine M.D. 05/17/2022 10:26 AM
[2022-05-17 11:18] LABS: Albumin Globulin Ratio 0.8 (0.9-2); Albumin Level 2.7 gm/dl (3.4-5.0); BUN Creatinine Ratio 14.2 (10-20); Bilirubin,Total 0.5 mg/dl (0.2-1.0); C Reactive Protein 6.97 mg/dl (0-0.5); Calcium 7.7 mg/dl (8.5-10.1); Est GFR (African American) 61.4 ml/min; Globulin 3.4 gm/dl (2.5-4.0); Phosphorus 3.8 mg/dl (2.5-4.9); Potassium 4.4 mmol/L (3.5-5.1); Total Protein 6.1 gm/dl (6.0-8.3)
[2022-05-17] MEDS: AMIODARONE 200 MG TAB PO SCH ×2 (11:58→23:36)
[2022-05-17] MEDS ORDERED: FUROSEMIDE 40 MG/4 ML VIAL IV STA (13:23)
[2022-05-17] MEDS: cefTRIAXone SODIUM 2,000 MG in DEXTROSE 5% 50 ML IV SCH (14:10)
[2022-05-17] MEDS: WARFARIN SOD 2.5 MG TAB PO SCH (16:37)
[2022-05-17] MEDS: TAMSULOSIN HCL 0.4 MG CAP PO SCH (21:45)
[2022-05-17] MEDS: DOXYCYCLINE HYCLATE 100 MG CAP PO SCH (22:42)
[2022-05-17] MEDS: ISOSORBIDE MONO EXTENDED REL 30 MG TABCR PO SCH (22:43)
[2022-05-18] MEDS: LEVOTHYROXINE SODIUM 112 MCG TABLET PO SCH (06:21)
[2022-05-18 07:29] LABS: INR 1.9 (0.9-1.1); Prothrombin Time 19.7 Seconds (9.0-12.0)
[2022-05-18] MEDS: dexAMETHasone 6 MG in SYRINGE 0 ML IV SCH (09:25)
[2022-05-18] MEDS: cefTRIAXone SODIUM 2,000 MG in DEXTROSE 5% 50 ML IV SCH (09:26)
[2022-05-18 10:06] LABS: Hematocrit (blood only) 24.3 % (40.1-51.0); Hemoglobin 7.7 g/dl (14.0-18.0); Mean Corpuscular Hgb Conc 31.7 g/dL (32.0-36.0); Mean Corpuscular Volume 88.4 fL (80.0-100.0); Mean Platelet Volume 10.5 fL (9.4-12.4); Platelet Count 154 K/uL (130-400); RDW Coefficient of Variation 17.5 % (11.5-14.5); RDW Standard Deviation 55.1 fL (36.4-46.3); Red Blood Count 2.75 M/uL (4.63-6.08); White Blood Count 3.31 K/ul (4.8-10.8)
[2022-05-18] MEDS: DOXYCYCLINE HYCLATE 100 MG CAP PO SCH ×2 (10:20→20:02)
[2022-05-18] MEDS: DOCUSATE SODIUM 100 MG CAP PO SCH ×2 (10:21→21:00)
[2022-05-18] MEDS: ASCORBIC ACID 500 MG TAB PO SCH (10:21)
[2022-05-18] MEDS: FERROUS SULFATE 325 MG TAB PO SCH (10:23)
[2022-05-18] MEDS: METOPROLOL SUCC 25MG EXT REL TAB PO SCH ×2 (10:24→20:02)
[2022-05-18 10:30] LABS: Albumin Globulin Ratio 0.8 (0.9-2); Albumin Level 2.6 gm/dl (3.4-5.0); BUN Creatinine Ratio 15.1 (10-20); Bilirubin,Total 0.4 mg/dl (0.2-1.0); Calcium 7.9 mg/dl (8.5-10.1); Creatinine Clr Calc Pharmacy 69.5 ml/min; Est GFR (African American) 53.1 ml/min; Est GFR (Non-African American) 45.8 ml/min; Globulin 3.3 gm/dl (2.5-4.0); Potassium 4.4 mmol/L (3.5-5.1); Total Protein 5.9 gm/dl (6.0-8.3)
[2022-05-18] MEDS: AMIODARONE 200 MG TAB PO SCH ×2 (11:31→23:12)
[2022-05-18] MEDS ORDERED: FUROSEMIDE 20 MG TAB PO SCH (13:45)
[2022-05-18] MEDS ORDERED: FUROSEMIDE 40 MG/4 ML VIAL IV ONE (14:08)
--- NOTE | 2022-05-18 14:43 | XRay Report ---
XR chest 1V portable HISTORY: Hypoxia. Covid. ICM, pulmonary edema, covid COMPARISON: Chest 05/16/2022. FINDINGS: There are low lung volumes. No pneumothorax. No pleural effusions. Mild elevation of the ri ght hemidiaphragm, unchanged. The heart remains moderately enlarged. Mild pulmonary vascular congesti on has improved. Perihilar airspace opacities have also improved. Left-sided pacemaker/defibrillator is again noted. IMPRESSION: Interval improvement in the pulmonary vascular congestion and perihilar airspace opacities ACT 112: Negative or not required by law. Electronically signed by: Galen Beaver M.D. 05/18/2022 2:40 PM
[2022-05-18] MEDS: WARFARIN SOD 2.5 MG TAB PO SCH (16:39)
--- NOTE | 2022-05-18 17:21 | Hospitalist Progress Note ---
Date of Service May 18, 2022 Assessment & Plan (1) Rectal bleeding: Plan: (1) Colon cancer: (2) ABLA (acute blood loss anemia): (3) Acute GI bleeding: (4) COVID-19: (5) hpoxia 2/2 pulmonary edema vs pneumonia (viral vs bacterial)-resolved (5) Paroxysmal A-fib: (6) CAD (coronary artery disease): (7) Ischemic cardiomyopathy with implantable cardioverter-defibrillator (ICD): (8) Non-sustained ventricular tachycardia: (9) Acute kidney failure (10) Elevated transaminases (11) Sleep apnea: Plan: This is a 61 yo M with PMH of mixed ischemic and nonischemic cardiomyopathy, v- tach, s/p ICD, CAD, h/o left ventricular apical thrombus, paroxysmal atrial fibrillation anticoagulated on warfarin, HTN, dyslipidemia, CKD III, MARIANNA, hypothyroidism, anxiety, elevated LFT's and recently diagnosed colon cancer in 2020 who presents to ED with SOB, congestion as well as continued bleeding per rectum. Patient was admitted a few weeks ago for rectal bleed in the setting of known colon cancer with biopsies consistent with an infiltrating well differentiated carcinoma. Was transferred to [facility] for care from colorectal service by Dr. Sanchez given complexity of patient with need for continued anticoagulation without interruption and persistent cancer related to GI bleeding. [facility] Colorectal service felt bleeding was attributed primarily to supratherapeutic INR and discharged once bleeding resolved. Per patient's report, colorectal surgery is planning on surgical intervention once he completes the next cycle of chemo. Returns with black stool with some bright red blood present x 2 days, INR of 3.7, epigastric abdominal pain worsening over past month and hgb of 7 (hgb of 9 on 04/30/22). Was given 2 units of blood with improvement in H/H. Flex sigmoidoscopy results as above. Managed expectations that hematochezia is going to be expected given ongoing oozing. Pt is s/p XRT therapy and tissue is friable. Will keep INR at goal and try not to allow him to be supratherapeutic. Warfarin was restarted 05/16 given known h/o LV mural thrombus and low EF. 05/17: INR subtherapeutic at 1.7, cont low dose warfarin 05/18: INR 1.9 Sigmoid/Rectal Colon Ca, T3 Follows medical onc Dr. Spence, currently receiving Capox therapy, last tx 4 weeks ago and due to resume in 4 days Completed Capecitabine concurrent with XRT 01/08/[address] [facility] with colorectal No evidence of mets, CT on 04/27/22 showedIll-defined suspicious mass within the hepatic dome measures up to 6.1 cm, mildly increased in size from the prior study. Previously liver bx showed severe hepatic steatosis and marked bridging fibrosis with occasional nodule, but does not appear to be a target bx. Will likely need biopsy of particular lesion to r/o mets to liver GI following while inpt. Pt to follow up w/ colorect. surg. as outpt., as above 05/18: bright red blood with BMs, Hb 7.7, currently asymptomatic. Cont to trend in am. Covid 19 Developed symptoms over past few days, tested positive today, 05/13/22 Oxygen saturation has now dropped and this is likely related to pulmonary edema seen on CXR after blood transfusions this admission in setting of low EF Requiring 2LPM oxygen at rest. Started decadron, but holding on remdesivir given elevated transaminases. Cont isolation precautions. 05/17: Elevated transaminases thought 2/2 covid-19--RUQ us performed today and reveals fatty liver which is known to patient. No evidence of obstruction 05/18: LFts trending down. Breathing is improved, weakness and fatigue has improved. CXR in am. HYPOXIA 2/2 PULMONARY EDEMA AND/OR PNA 05/17: Procalcitonin elevated, pna possible on CXR and patent with coughing, started Rocephin/doxycycline for secondary antibacterial coverage. Cont decadron started yesterday at least one more day while still hypoxic. Gave another dose of Lasix and will cont to monitor for effect. Likely will redose in am. Robitussin AC started for cough symptoms. Ischemic cardiomyopathy ICD in place Paroxysmal V. tach-plans for ablation with O/P EP doc after chemotherapy. PAF H/o L ventricular apical thrombus CAD HTN Continue amiodarone, Imdur and metoprolol with hold parameters Hold ASA, warfarin, Lasix and hydralazine while hypotensive Follows with [facility] cardiology 05/17: transfer back to PCU for continued monitoring while diuresing pulmonary edema 05/18: remains in sinus rhythm on tele overnight. CKD -3 Baseline cr 1.4-1.5 Bun/cr stable Avoid nephrotoxic agents MARIANNA Cpap at HS DVT ppx:SCDS, warfarin restarted Code status: FULL Dispo:PCU PCP: Dr. Jennifer Chaudhary DO [facility] Hospitalist (2) Acute kidney failure: Admission and Anticipated Discharge Date Admission Date: May 13, 2022 Subjective Patient seen in follow-up of anemia, lightheadedness, positive COVID-19, GI bleed Still some dry coughing but lungs are clear on auscultation today. Lasix reportedly helped his cough yesterday-one more dose today Procalc elevated and still coughing with ? PNa on CXR Abx started yesterday and will repeat CXR in am. feeling slightly better Review of Systems Review of Systems: All systems were reviewed and negative except as indicated on subjective above. Physical Exam Physical Exam: CONSTITUTIONAL: obese vitals as above, generally well- appearing, NAD EYES: normal conjunctivae, no scleral icterus, ENT: external ear and nose normal, MMM NECK: trachea midline, RESPIRATORY: CTA throughout all lung b[place]ra, no rales or wheezes, normal respiratory effort. + Coughing CARDIOVASCULAR: regular rate and rhythm, S1 and 2 heard without murmurs, gallops or rubs, no JVD, no peripheral edema, GASTROINTESTINAL: soft, nontender, protuberant, ND, no guarding MUSCULOSKELETAL: strength 5/5 throughout, head is normocephalic and atraumatic SKIN: warm and dry NEUROLOGIC: CN 2-12 grossly intact, no sensory deficit, normal cognition, normal speech, no tremor PSYCHIATRIC: alert cooperative and oriented to person, place and time. Euthymic mood, makes good eye contact, language grossly intact, recent and remote memory grossly intact. Results & Data Results & Data ([facility]) Vital Signs (Past 12 Hours) Vital Signs Temp Pulse Pulse Resp BP Pulse Ox O2 Del Method 05/18/22 15:57 37.0 C 64 20 124/75 93 Room Air 05/18/22 15:40 Room Air 05/18/22 14:59 60 05/18/22 11:54 37.0 C 58 L 21 152/85 H 94 Room Air 05/18/22 10:03 60 05/18/22 07:43 36.9 C 67 22 147/79 H 96 Room Air Laboratory Results Short CBC 05/18/22 Range/Units 07:05 WBC 3.31 L (4.8-10.8) K/ul Hgb 7.7 L (14.0-18.0) g/dl Hct 24.3 L (40.1-51.0) % Plt Count 154 (130-400) K/uL BMP 05/18/22 07:05 Sodium 138 Potassium 4.4 Chloride 103 Carbon Dioxide 31 BUN 24 H Creatinine 1.59 H Glucose 91 Calcium 7.9 L Liver Function 05/18/22 Range/Units 07:05 Total Bilirubin 0.4 (0.2-1.0) mg/dl AST 85 H (13-39) U/L ALT 57 H (7-52) U/L Alkaline Phosphatase 94 (34-104) U/L Albumin 2.6 L (3.4-5.0) gm/dl Diagnostic Findings Chest X-Ray 05/18/22 14:04 XR chest 1V portable HISTORY: Hypoxia. Covid. ICM, pulmonary edema, covid COMPARISON: Chest 05/16/2022. FINDINGS: There are low lung volumes. No pneumothorax. No pleural effusions. Mild elevation of the right hemidiaphragm, unchanged. The heart remains moderately enlarged. Mild pulmonary vascular congestion has improved. Perihilar airspace opacities have also improved. Left-sided pacemaker/defibrillator is again noted. IMPRESSION: Interval improvement in the pulmonary vascular congestion and perihilar airspace opacities ACT 112: Negative or not required by law. Electronically signed by: Galen Beaver M.D. 05/18/2022 2:40 PM Medications Administered Current Inpatient Medications Acetaminophen (Acetaminophen 325 Mg Tab) 650 mg PO Q4H PRN PRN Reason: Pain or Fever Stop: 06/12/22 18:51 Last Admin: 05/13/22 21:00 Dose: 650 mg Hydrocodone Bitart/Acetaminophen (Hydrocodone/Acetamophen 5/325mg Tab) 1 tab PO Q6H PRN PRN Reason: Pain Stop: 05/27/22 18:12 Amiodarone HCl (Amiodarone 200 Mg Tab) 300 mg PO Q12@0000,1200 [facility] Stop: 06/13/22 00:00 Last Admin: 05/18/22 11:31 Dose: 300 mg Ascorbic Acid (Ascorbic Acid 500 Mg Tab) 250 mg PO DAILY [facility]; Protocol Stop: 06/13/22 08:59 Last Admin: 05/18/22 10:21 Dose: 250 mg Docusate Sodium (Docusate Sodium 100 Mg Cap) 100 mg PO BID TASH Stop: 06/15/22 20:59 Last Admin: 05/18/22 10:21 Dose: 100 mg Doxycycline Hyclate (Doxycycline Hyclate 100 Mg Cap) 100 mg PO BID [facility]; Protocol Stop: 05/24/22 20:59 Last Admin: 05/18/22 10:20 Dose: 100 mg Ferrous Sulfate (Ferrous Sulfate 325 Mg Tab) 325 mg PO DAILY TASH Stop: 06/14/22 08:59 Last Admin: 05/18/22 10:23 Dose: 325 mg Furosemide (Furosemide 20 Mg Tab) 20 mg PO DAILY [facility] Stop: 06/17/22 13:44 Guaifenesin/Codeine Phosphate (Guaifenesin/Codeine 200mg/20mg 10ml Udc) 10 ml PO Q6H PRN PRN Reason: Cough Stop: 06/16/22 13:22 Last Admin: 05/18/22 11:37 Dose: 10 ml Promethazine HCl 12.5 mg/ (Sodium Chloride) 50.5 mls @ 202 mls/hr IV Q6H PRN PRN Reason: Nausea And Vomiting Stop: 06/13/22 22:22 Last Infusion: 05/16/22 02:15 Dose: Infused Ceftriaxone Sodium 2,000 mg/ (Dextrose) 70 mls @ 100 mls/hr IV DAILY [facility]; Protocol Stop: 05/24/22 13:29 Last Infusion: 05/18/22 10:25 Dose: Infused Isosorbide Mononitrate (Isosorbide [place] Extended Rel 30 Mg Tabcr) 30 mg PO QPM TASH Stop: 06/12/22 20:59 Last Admin: 05/17/22 22:43 Dose: 30 mg Levothyroxine Sodium (Levothyroxine Sodium 112 Mcg Tablet) 112 mcg PO DAILYBB [facility] Stop: 06/13/22 06:29 Last Admin: 05/18/22 06:21 Dose: 112 mcg Metoprolol Succinate (Metoprolol Succ 25mg Ext Rel Tab) 25 mg PO BID TASH Stop: 06/13/22 08:59 Last Admin: 05/18/22 10:24 Dose: 25 mg Nitroglycerin (Nitroglycerin Sl 0.4 Mg/Tab Tab) 0.4 mg SL UD PRN PRN Reason: Chest Pain Stop: 06/12/22 18:12 Last Admin: 05/14/22 06:22 Dose: 0.4 mg Tamsulosin HCl (Tamsulosin Hcl 0.4 Mg Cap) 0.4 mg PO HS [facility] Stop: 06/12/22 20:59 Last Admin: 05/17/22 21:45 Dose: 0.4 mg Warfarin Sodium (Warfarin Sod 2.5 Mg Tab) 2.5 mg PO DAILY@1600 [facility] Stop: 06/15/22 15:59 Last Admin: 05/18/22 16:39 Dose: 2.5 mg
[2022-05-18] MEDS: ISOSORBIDE MONO EXTENDED REL 30 MG TABCR PO SCH (20:02)
[2022-05-18] MEDS: TAMSULOSIN HCL 0.4 MG CAP PO SCH (20:03)
[2022-05-19] MEDS: LEVOTHYROXINE SODIUM 112 MCG TABLET PO SCH (05:34)
[2022-05-19 06:38] LABS: Hematocrit (blood only) 24.2 % (40.1-51.0); Hemoglobin 7.6 g/dl (14.0-18.0); Mean Corpuscular Hemoglobin 27.7 pg (25.0-34.0); Mean Corpuscular Hgb Conc 31.4 g/dL (32.0-36.0); Mean Corpuscular Volume 88.3 fL (80.0-100.0); Mean Platelet Volume 10.8 fL (9.4-12.4); Platelet Count 153 K/uL (130-400); RDW Coefficient of Variation 17.2 % (11.5-14.5); RDW Standard Deviation 54.7 fL (36.4-46.3); Red Blood Count 2.74 M/uL (4.63-6.08); White Blood Count 3.51 K/ul (4.8-10.8)
[2022-05-19 07:05] LABS: Albumin Globulin Ratio 0.8 (0.9-2); Albumin Level 2.7 gm/dl (3.4-5.0); BUN Creatinine Ratio 20.1 (10-20); Bilirubin,Total 0.4 mg/dl (0.2-1.0); Calcium 7.6 mg/dl (8.5-10.1); Creatinine Clr Calc Pharmacy 76.6 ml/min; Est GFR (African American) 59.9 ml/min; Est GFR (Non-African American) 51.7 ml/min; Globulin 3.3 gm/dl (2.5-4.0)
[2022-05-19] MEDS: METOPROLOL SUCC 25MG EXT REL TAB PO SCH (08:16)
[2022-05-19] MEDS: ASCORBIC ACID 500 MG TAB PO SCH (08:16)
[2022-05-19] MEDS: FERROUS SULFATE 325 MG TAB PO SCH (08:18)
[2022-05-19] MEDS: DOXYCYCLINE HYCLATE 100 MG CAP PO SCH (08:18)
[2022-05-19] MEDS: DOCUSATE SODIUM 100 MG CAP PO SCH (08:33)
[2022-05-19] MEDS: cefTRIAXone SODIUM 2,000 MG in DEXTROSE 5% 50 ML IV SCH (08:33)
[2022-05-19 10:41] LABS: INR 2.3 (0.9-1.1); Prothrombin Time 23.2 Seconds (9.0-12.0)
[2022-05-19] MEDS ORDERED: FUROSEMIDE 40 MG TAB PO SCH (10:45)
--- NOTE | 2022-05-19 10:53 | Discharge Summary ---
Date of Service May 19, 2022 Admission HPI Per Admitting Provider known cancer on dorothea-adj chemo/XRT. Now with rectal bleeding Principal Diagnosis Rectal bleeding secondary to colon mass status post XRT therapy Acute blood loss anemia status post transfusion of 2 units of red blood cells COVID-19 infection with possible superimposed bacterial pneumonia Hypoxia secondary to pulmonary edema versus pneumonia (viral versus bacterial) History of ischemic cardiomyopathy with implantable cardioverter defibrillator with history of ventricular tachycardia Paroxysmal atrial fibrillation Elevated transaminase Acute kidney failure Discharge Exam CONSTITUTIONAL: obese vitals as above, generally well-appearing, NAD EYES: normal conjunctivae, no scleral icterus, ENT: external ear and nose normal, MMM NECK: trachea midline, RESPIRATORY: CTA throughout all lung bocanegra, no rales or wheezes, normal respiratory effort. + Coughing, nonproductive CARDIOVASCULAR: regular rate and rhythm, S1 and 2 heard without murmurs, gallops or rubs, no JVD, no peripheral edema, GASTROINTESTINAL: soft, nontender, protuberant, ND, no guarding MUSCULOSKELETAL: strength 5/5 throughout, head is normocephalic and atraumatic SKIN: warm and dry NEUROLOGIC: CN 2-12 grossly intact, no sensory deficit, normal cognition, normal speech, no tremor PSYCHIATRIC: alert cooperative and oriented to person, place and time. Euthymic mood, makes good eye contact, language grossly intact, recent and remote memory grossly intact. Discharge Data Allergies Allergy/AdvReac Type Severity Reaction Status Date / Time phytonadione (vitamin K1) AdvReac Severe Chest Pain Verified 05/15/22 08:51 Consultations 05/13/22 15:26 ED Decision to Admit Stat 05/13/22 18:52 Consult Gastroenterology Routine 05/15/22 08:45 Consult Cardiology Routine Procedures Performed Operation Date: 05/16/22 10:20 Actual Procedures p Colonoscopy - Krystal Ramirez, DO Ordered Studies 05/14/22 13:30 CT angio abdomen pelvis w con Stat 05/17/22 07:43 US RUQ [US liver] Routine Hospital Course (1) Rectal bleeding: (2) Acute kidney failure: (3) ABLA (acute blood loss anemia): (4) Colon cancer: (5) COVID-19: (6) Pneumonia: (7) Weakness: (8) Supratherapeutic INR: (9) Elevated LFTs: (10) Paroxysmal A-fib: (11) Ischemic cardiomyopathy with implantable cardioverter-defibrillator (ICD): (12) Sleep apnea: Plan 61-year-old man with multiple medical problems including colon cancer presented to the hospital for rectal bleeding. His INR was noted to be supra therapeutic and he is on warfarin and aspirin. He was admitted to the hospitalist service and was given 2 units of blood with improvement in hemoglobin hematocrit. Flexible sigmoidoscopy was performed with noted oozing from friable tissue around the colon mass status post radiation therapy. There were no targets to cauterize. Patient was given a small dose of vitamin K and had subsequent chest pain. Phytonadione was added to his allergy list. After the sigmoidoscopy his warfarin was restarted at 2.5 mg daily. His INR slowly trended up and at time of discharge was 2.3. He did have persistent hematochezia and remained anemic with a hemoglobin of 7.6 at time of discharge. He denied any symptoms and had been asymptomatic for over 48 hours with a stable hemoglobin. He was not tachycardic or breathless at rest or with exertion. Complicating his stay was a diagnosis of COVID-19. He developed hypoxia likely related to pulmonary edema that developed after blood transfusion without diuretic therapy in the setting of a low ejection fraction. He was given a couple days of intravenous Lasix with improvement of hypoxia and improvement of symptoms. Chest x-ray revealed bilateral perihilar airspace opacities and procalcitonin was mildly elevated. For this reason and with ongoing respiratory symptoms of cough and shortness of breath he was placed on antibiotic therapy with Rocephin and doxycycline. Decadron was also given daily while he was hypoxic but was not continued at discharge. He had a resolution of hypoxia at rest and a two-step was performed prior to discharge revealing he did not require supplemental oxygen with exertion. He was continued on a short course of antibiotics to complete the course for pneumonia and counseled on isolation for COVID-19. He is on warfarin for history of left ventricular apical apical thrombus and paroxysmal atrial fibrillation. Goal INR at this point will be 2-2.5 to this time he any additional rectal bleeding from the oozing colon mass. His aspirin was held. Stool softeners were encouraged to avoid constipation. At time of discharge he was hemodynamically stable and afebrile and tolerating p.o. He was mentating and ambulating at baseline and discharged home in stable condition. Close primary care follow-up was recommended. Of note there was a 6 cm ill-defined mass lesion in the liver. This may represent fibrosis however neoplasm cannot be excluded at this time. Patient all findings on CT of the abdomen pelvis included splenomegaly and a small volume of abdominal pelvic ascites indicating portal hypertension. Transaminases were elevated in the setting of fatty liver and COVID-19. There was no evidence of obstruction on repeat liver ultrasound. Recommend repeat liver enzymes and follow-up of imaging findings mentioned previously as outpatient. Total Time Total Time Spent Total Time Spent (In Minutes): 60 Discharge Plan Discharge Items Patient Disposition: Home - Self-Care Reason For Visit: Rectal Bleeding Discharge Diagnosis: Rectal bleeding secondary to colon mass status post XRT therapy Acute blood loss anemia status post transfusion of 2 units of red blood cells COVID-19 infection with possible superimposed bacterial pneumonia Hypoxia secondary to pulmonary edema versus pneumonia (viral versus bacterial) History of ischemic cardiomyopathy with implantable cardioverter defibrillator with history of ventricular tachycardia Paroxysmal atrial fibrillation Elevated transaminase Acute kidney failure Condition on Discharge: Good Activity: Resume your previous activity Non-emergency contact: Primary Care Provider Call non-emergency contact if: you have any medication questions, your symptoms worsen, your pain is not controlled, your pain is worsening, your pain is unusual for you, your pain is concerning for you and you have a fever Follow-up/Referrals: Brandon Kitchen CRNP [Nurse Practitioner] - (Date & Time 05/22/2022 1:30 PM Provider JITENDRA Valencia Department Gastroenterology, [facility] ) Titi Rodriguez MD [Primary Care Provider] - (Date & Time 05/24/2022 9:40 AM Provider Titi Rodriguez MD Department [facility] ) Diet: Regular Addtl Attending Provider Instructions: Please take all medications as instructed on discharge list below. You are being given a few days of antibiotics to finish up a short course for treatment of possible bacterial pneumonia. You have been diagnosed with COVID-19 infection and should be on home isolation for 10 days beyond when your symptoms began per current public health guidelines. If you are symptomatic after this time please wear a mask and appropriately social distance from others. Your Lasix has been increased to 40 mg daily for the time being. During your next follow-up with your primary care provider, this may be decreased back to the original dosing based on how you are feeling and your blood work. A basic metabolic panel should be performed early next week, ordered by your primary care provider. Your INR today is 2.3. Your warfarin dosing will remain at 2.5 mg daily to keep you at a goal INR range of 2-2.5. This will help to avoid excessive bleeding. Please continue to follow closely with your [facility] clinic for anticoagulation management. In an effort to help avoid excess bleeding, please discontinue your aspirin for the time being. You may need to restart this at a later date. You are anemic with a hemoglobin of 7.6 at discharge today. If your hemoglobin is below 7 or if symptoms symptoms including shortness of breath, extreme fatigue or chest pain develop, this may be indicative of symptomatic anemia, requiring a blood transfusion. A CBC (complete blood count) should be performed early next week, ordered by her primary care provider. Your liver function enzymes were elevated possibly secondary to medications versus COVID-19 in the setting of fatty liver. These enzymes should be repeated next week and may be ordered by her primary care provider. Please separate your doxycycline and iron supplementation by at least 2 hours as these medications interact. Please continue a twice daily stool softener to avoid constipation. It is recommended that you follow-up with your primary care doctor at the date and time above to ensure you are still doing well after returning home from the hospital and that there is review of medications along with blood work and a clinical assessment of how you are feeling. Medication changes may need to occur at that visit. It was a pleasure taking care of you! Please call if you have any questions or problems. You can reach a [facility] hospitalist on duty at [facility] 24 hours a day by calling [phone]. Take care of yourself. Olamide Chaudhary, DO [facility] Hospitalist Pending Studies at Discharge: No Stand-Alone Forms: My [facility] Medications and DC Order Prescriptions: New doxycycline hyclate 100 mg Capsule 100 mg PO BID Qty: 10 0RF docusate sodium 100 mg Capsule 100 mg PO BID Qty: 60 0RF codeine-guaifenesin 10-100 mg/5 mL Liquid 10 ml PO Q6H PRN (Reason: cough) Qty: 120 0RF Rx Instructions: Caution as this may cause drowsiness. Don't mix with other narcotic medications or alcohol. amoxicillin 875 mg tablet 875 mg PO BID Qty: 10 0RF Continued Vitron-C 65 mg iron- 125 mg tablet,delayed release (DR/EC) 1 tab PO DAILY ondansetron HCl 8 mg tablet 8 mg PO Q8H PRN (Reason: Pain) amiodarone 200 mg Tablet 300 mg PO Q12 Rx Instructions: indiations: noon and midnight hydrocodone-acetaminophen 5-325 mg Tablet 1 tab PO Q6 PRN (Reason: Pain) isosorbide mononitrate 30 mg Tablet Extended Release 24 Hr 30 mg PO QPM levothyroxine 112 mcg tablet 112 mcg PO DAILYBB nitroglycerin [Nitrostat] 0.4 mg Tablet, Sublingual 0.4 mg sublingual UD PRN (Reason: Chest Pain) metoprolol succinate 100 mg Tablet Extended Release 24 Hr 100 mg PO BID ferrous sulfate 325 mg (65 mg iron) Tablet,Delayed Release (Dr/Ec) 325 mg PO DAILY Qty: 30 0RF capecitabine 500 mg tablet 500 mg PO DIRECTED Rx Instructions: START WITH NEXT ROUND OF CHEMO tamsulosin [Flomax] 0.4 mg capsule 0.4 mg PO HS Qty: 14 0RF hydralazine 25 mg tablet 25 mg PO [facility] Changed furosemide 20 mg tablet 40 mg PO DAILY Qty: 60 0RF warfarin 5 mg tablet 2.5 mg PO DAILY Qty: 30 0RF Rx Instructions: DIRECTED BY ANTI-COAGULATION CLINIC Discharge Orders: Discharge Order (Routine); Ordered 05/19/22 Ordered By: Olamide Chaudhary Admission Data Admit Date/Time: 05/13/22 17:21 Attending Provider: Olamide Chaudhary Admit Provider: Helder Petit Primary Care Provider: Titi Rodriguez Other Providers: Helder Petit ; Carlo Craig ; Imtiaz Vigil
[2022-05-19 11:48] VITALS: TEMP 98.2; O2SAT 92
[2022-05-19] MEDS: AMIODARONE 200 MG TAB PO SCH (11:55)
[2022-05-19 12:56] VITALS: BP 133/71; PULSE 60
== END 2022-05-19 13:22 | disposition home or self-care (01) | DRG 377 ==
LOC: ED 12:36 → SUATTDRO 17:21 → 1E 17:21 → 2S 05-14 17:52 → 3W 05-16 12:09 → 2S 05-17 16:00

== ENCOUNTER 2022-05-25 14:26 | Inpatient (IN) ==
[2022-05-25] MEDS ORDERED: methylPREDNISolone 125 MG/2 ML VIAL IV STA (14:51)
[2022-05-25] MEDS ORDERED: ALBUT/IPRATROP 3MG/0.5MG NEB 3 ML VIAL INH STA (14:51)
[2022-05-25] MEDS ORDERED: CEFEPIME 2,000 MG/20 ML VIAL IV STA (14:54)
[2022-05-25] MEDS ORDERED: SODIUM CHLORIDE 0.9% 1000ML 500 ML IV ONE (14:54)
[2022-05-25] MEDS ORDERED: VANCOMYCIN HCL 2,750 MG in SODIUM CHLORIDE 0.9% 500 ML IV ONE (14:54)
[2022-05-25] MEDS ORDERED: VANCOMYCIN CONSULT ACTIVE PRN (14:54)
--- NOTE | 2022-05-25 14:57 | Emergency Department Note ---
Impression & Plan Acute hypoxemic respiratory failure ED Provider Note NAME: SEJAL FENTON AGE: 61 SEX: M : 1960 ARRIVES VIA: Walk-In INFORMANT: Patient, ED PROVIDER(S): Kolton Shepherd MD Chief Complaint: Shortness of breath HPI: Patient presents due to concern for shortness of breath which is been ongoing approximate 3 to 4 days. The patient was recently seen and admitted for COVID associated pneumonia and was discharged on antibiotic therapy. The patient was referred here for further evaluation and treatment was noted to be hypoxemic at 82%. The patient was placed on 15 L nonrebreather. Patient denies any chest pains and does take Coumadin for history of A. fib. The patient denies any current chest pains. Patient denies any recent surgeries patient has noticed some wheezing scant cough that is nonproductive. The patient does not have a prior history of smoking. The patient does work with Dr. Spence with oncology for history of rectal cancer. The patient denies any current rectal bleeding. Patient states that at rest his feeling of shortness of breath is not that bad that the moment he begins to try and do something he does feel quite symptomatic. Patient denies any leg swelling and the patient denies any prior history of DVT or PE. ROS: See HPI for pertinent positives and negatives. A total of 10 systems were reviewed and otherwise negative. Past medical history: See below Surgical history: See below Social history: See below Physical Exam: GENERAL: Mild distress, nonrebreather in place, wearing glasses. EYE EXAM: Normal conjunctiva. PERRL, no anisocoria and EOM's grossly intact w/o pain. NECK: Supple, no nuchal rigidity, no adenopathy, non-tender. No signs of meningismus. FROM of the neck with good chin to chest and neck extension. No stridor. LUNGS: Diffuse inspiratory wheezing. Normal chest wall mechanics. HEART: NSR, no MRG. ABDOMEN: Abdomen soft, non-tender, normo-active bowel sounds, no masses, no rebound or guarding. BACK: No CVA TTP. SKIN: No rashes and no bruising. UPPER EXTREMITIES: Upper extremities are grossly normal. LOWER EXTREMITIES: Grossly normal, no edema. Negative Homans' sign bilaterally. NEURO EXAM: A&O x3, cranial nerves II-XII grossly intact, normal speech, moves all 4 extremities. Differential diagnoses: Reactive airway disease, pneumonia, pneumothorax, COPD, CHF, infections, cardiac ischemia, pulmonary embolism, musculoskeletal, gastr ointestinal, as well as other pathologies. Course: Patient was seen and evaluated the bedside. Full history physical exam was performed. EKG interpreted by me Atrial paced rhythm, ventricular rate of 64, left bundle branch block pattern. Imaging Studies: See Below Cardiac monitoring: An order was placed for continuous cardiac monitoring. The monitor shows a rate of 65 with regular/paced rhythm. MDM: Patient presented due to concern for respiratory distress and hypoxemia. The patient's oxygen was titrated off the nonrebreather. The patient was ordered steroids and nebulizer treatment. Blood work was also obtained. Patient's initial creat was 1.[address] was ordered. The patient has a normal white count of 9. The patient was covered with empiric antibiotics vanco mycin and cefepime after discussion with the pharmacist. The patient had been taking doxycycline at home. Patient's hemoglobin is improved compared to prior at 8.7. The patient's platelet count is normal. VBG does not show any acute hypercarbia. Patient's creatinine is more or less at baseline prior 1.4 today is 1.7. Patient does have mild elevation in troponin as well as BNP. Patient's chest x-ray did show multifocal airspace opacities. Patient blood pressure improved and thus the normal saline was stopped. The patient did only receive about 110 cc of normal saline. Patient upon reassessment did feel improved with the supplemental nasal cannula oxygen. The patient also stated that he thought that the breathing treatment helped improve his symptoms. Patient CT of the chest just showed reticular regulates opacities which are increased from prior chest x-ray completed on May 18. This reflects likely infectious inflammatory process. I did speak with the on-call hospitalist Ct Davidson PA-C and the patient was admitted by Dr. Love. Patient's IV hydration was stopped as the patient's blood pressure improved and the patient does have a known history of CHF. Clinically the patient does not have overt lower extremity edema but this was further avoided at this time. The patient's troponin is elevated at 30 but the patient did have chronic elevations during his most recent admission. Patient's EKG does not show sgarbossa criteria the patient does not complain of chest pains. Patient is on Coumadin which would lower the patient's risk of PE but not impossible. Do believe that the patient's prior COVID illness and associated pneumonia are likely causative factors believe PE to be less likely. CT angio was avoided in light of the patient's slightly worsening creatinine 1.7. Critical Care: I have personally spent 47 minutes of critical care time in direct management of this patient. This includes bedside care, interpretation of diagnostic studies, and testing, discussion with consultants, patient, and family members, and other require inpatient management activities. This 47 minutes is in excess of all separately billable procedures. 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 ICD placed 2013 No VT episodes since 10/2020 per cardio records Current EF 20-25% F/U RADHA GALLO CHF (congestive heart failure) CHF (congestive heart failure) hx/no recent issues Chronic back pain CKD (chronic kidney disease) stage 3, GFR 30-59 ml/min Depression Elevated LFTs Gout History of kidney stones History of ventricular tachycardia Hypertension Hypothyroidism LBBB (left bundle branch block) Incomplete per records Left ventricular aneurysm Dx'ed around 2011- on Coumadin- cardio monitoring Moderate in size and noted to apical and inferior area. Hx of LV apical thrombus Myocardial Infarction 15+ years ago- medically managed On anticoagulant therapy WARFARIN Paroxysmal A-fib Pneumonia Pneumonia HX-2000 Presence of combination internal cardiac defibrillator (ICD) and pacemaker Implanted 2013 (follows with cardiology/Dr. Jaffe/RADHA GALLO) Sleep apnea CPAP SOB (shortness of breath) on exertion ON OCC Surgical History H/O arthroscopic knee surgery multiple on bilateral knees H/O neck surgery History of cardiac cath 2011= NO STENTS History of colonoscopy (~09/15/21) History of cystoscopy History of esophagogastroduodenoscopy (EGD) History of implantable cardioverter-defibrillator (ICD) placement History of laminectomy L4-L5 History of lithotripsy History of lumbar surgery 09/17/19 Grade 1 view Mac 3, magnet placed on L chest wall during procedure History of tonsillectomy Status post uvulopalatopharyngoplasty Family History Father , 54yo Lung cancer Mother , 85yo Alzheimer disease Brother No problems noted. Brother No problems noted. Sister No problems noted. Daughter No problems noted. Daughter No problems noted. Social History Smoking Status: Never smoker Second Hand Exposure: No; Hx Alcohol Use: No Hx Substance Use: No Preferred Language: Turkish Communication Ability: Effective Visual Impairment: Limited Hearing Ability: Normal Hoe Runner Required: No Beliefs That Will Affect Care: None marital status: Current Living Situation: Alone Current Living Situation Comment: dtr lives next door current occupational status: disabled Feels Safe at Home: Yes caffeine: No during the past year weight has: decreased > 10 lbs Assistive Devices: Scooter/Electric Scooter Allergies Allergies Allergy/AdvReac Type Severity Reaction Status Date / Time phytonadione (vitamin K1) AdvReac Severe Chest Pain Verified 05/15/22 08:51 Home Meds Home Medications Medication Instructions Recorded Confirmed amiodarone 200 mg tablet 300 mg PO Q12 09/07/19 05/13/22 hydrocodone 5 mg-acetaminophen 325 1 tab PO Q6 PRN Pain 09/07/19 05/13/22 mg tablet levothyroxine 112 mcg tablet 112 mcg PO DAILYBB 01/11/20 05/13/22 nitroglycerin 0.4 mg sublingual 0.4 mg sublingual UD PRN Chest Pain 08/13/20 05/13/22 tablet (Nitrostat) isosorbide mononitrate 30 mg 30 mg PO QPM 12/25/20 05/13/22 tablet,extended release 24 hr metoprolol succinate 100 mg 100 mg PO BID 10/20/21 05/13/22 tablet,extended release 24 hr iron,carbonyl 65 mg-vitamin C 125 1 tab PO DAILY 11/14/21 05/13/22 mg tablet,delayed release (Vitron-C) ondansetron HCl 8 mg tablet 8 mg PO Q8H PRN Pain 12/04/21 05/13/22 hydralazine 25 mg tablet 25 mg PO AMHS 04/27/22 05/13/22 capecitabine 500 mg tablet 500 mg PO DIRECTED 05/13/22 05/13/22 Previous Rx's Medication Instructions Recorded ferrous sulfate 325 mg (65 mg 325 mg PO DAILY #30 tabs 10/21/21 iron) tablet,delayed release tamsulosin 0.4 mg capsule (Flomax) 0.4 mg PO HS #14 caps 12/20/21 amoxicillin 875 mg tablet 875 mg PO BID #10 tabs 05/19/22 codeine 10 mg-guaifenesin 100 mg/5 10 ml PO Q6H PRN cough #120 mL 05/19/22 mL oral liquid docusate sodium 100 mg capsule 100 mg PO BID #60 caps 05/19/22 doxycycline hyclate 100 mg capsule 100 mg PO BID #10 caps 05/19/22 furosemide 20 mg tablet 40 mg PO DAILY #60 tabs 05/19/22 warfarin 5 mg tablet 2.5 mg PO DAILY #30 tabs 05/19/22 Results & Data (ED) Vital Signs Vital Signs - 24 hr 05/25/22 14:35 05/25/22 15:00 05/25/22 18:00 Temperature 36.9 C Temperature Source Temporal Artery Scan Pulse Rate 70 Pulse Rate [Right Finger] 60 Pulse Rate from SpO2 Sensor Pulse Rhythm [Right Finger] Regular Pulse Strength [Right Finger] Normal Respiratory Rate 26 H 16 Respiratory Effort / Characteristics Non-Labored Non-Labored Respiratory Depth Normal Normal Respiratory Pattern Regular Blood Pressure 93/55 L Blood Pressure [Left Arm] 125/64 Blood Pressure Mean 67 Blood Pressure Mean [Left Arm] 84 Blood Pressure Position [Left Arm] Lying Pulse Oximetry 82 L 97 94 Oxygen Delivery Method Room Air Oxymask Nasal Cannula Oxymask Oxygen Flow Rate 8 6 Sepsis Recent Fever Within 48 Hours No Sepsis New/Unexplained Change in Mental Status No Sepsis Action Taken by Nursing No Action Required 05/25/22 19:01 05/25/22 19:25 Temperature 36.8 C Temperature Source Oral Pulse Rate 69 60 Pulse Rate [Right Finger] Pulse Rate from SpO2 Sensor 69 Pulse Rhythm [Right Finger] Pulse Strength [Right Finger] Respiratory Rate 16 18 Respiratory Effort / Characteristics Respiratory Depth Respiratory Pattern Blood Pressure 150/85 H 129/66 Blood Pressure [Left Arm] Blood Pressure Mean 106 Blood Pressure Mean [Left Arm] Blood Pressure Position [Left Arm] Pulse Oximetry 95 95 Oxygen Delivery Method Oxymask Oxymask Oxygen Flow Rate 6 6 Sepsis Recent Fever Within 48 Hours Sepsis New/Unexplained Change in Mental Status Sepsis Action Taken by [facility] Medications Current Medication List: was personally reviewed by me Laboratory Data Attestation: I reviewed the patient's lab results. Result diagrams: 05/25/22 14:50 05/25/22 14:50 Lab Results 05/25/22 05/25/22 05/25/22 Range/Units 14:50 14:50 14:50 WBC 9.47 (4.8-10.8) K/ul RBC 3.11 L (4.63-6.08) M/uL Hgb 8.7 L (14.0-18.0) g/dl POC Hgb (14.0-18.0) g/dl Hct 27.8 L (40.1-51.0) % POC Hct (42-52) % MCV 89.4 (80.0-100.0) fL MCH 28.0 (25.0-34.0) pg MCHC 31.3 L (32.0-36.0) g/dL RDW Std Deviation 56.6 H (36.4-46.3) fL RDW Coeff of Chris 17.7 H (11.5-14.5) % Plt Count 219 (130-400) K/uL MPV 11.3 (9.4-12.4) fL Immature Gran % (Auto) 0.7 % Neut % (Auto) 86.0 % Lymph % (Auto) 4.9 % Aurora % (Auto) 8.0 % Eos % (Auto) 0.2 % Baso % (Auto) 0.2 % Neut # (Auto) 8.14 H (1.4-6.5) K/uL Lymph # (Auto) 0.46 L (1.2-3.4) K/uL Aurora # (Auto) 0.76 (0.24-0.82) K/uL Eos # (Auto) 0.02 (0-0.50) K/uL Baso # (Auto) 0.02 (0-0.2) K/uL Immature Gran # (Auto) 0.07 H (0.00-0.02) K/uL PT 15.1 H (9.0-12.0) Seconds INR 1.4 H (0.9-1.1) APTT 34.5 H (21.0-31.0) Seconds PTT Ratio 1.3 VBG pH (7.36-7.41) VBG pCO2 (38-50) mmHg VBG pO2 mmHg VBG HCO3 mmol/L VBG O2 Saturation % VBG Base Excess mEq/L POC Sodium (135-144) mmol/L Sodium 135 L (136-145) mmol/L POC Potassium (3.3-5.0) mmol/L Potassium 4.4 (3.5-5.1) mmol/L POC Chloride (101-112) mmol/L Chloride 100 (98-107) mmol/L Carbon Dioxide 30 (21-32) mmol/L POC Total CO2 (24-31) mmol/L Anion Gap 5 (3-11) POC Anion Gap (16-25) mmol/L POC BUN (7-18) mg/dl BUN 25 H (6-23) mg/dl Creatinine 1.73 H (0.6-1.4) mg/dl POC Creatinine (0.6-1.3) mg/dl Est Cr Clr Drug Dosing Not Reportable Est GFR ( Amer) 48.0 ml/min Est GFR (Non-Af Amer) 41.4 ml/min BUN/Creatinine Ratio 14.5 (10-20) Glucose 94 (70-99(Fasting)) mg/dl POC Glucose (other) (70-99) mg/dl Lactate (0.4-2.0) mmol/L Calcium 7.6 L (8.5-10.1) mg/dl POC Ioniz Calcium Rebekah (1.12-1.32) mmol/l Magnesium 1.9 (1.7-2.4) mg/dl Total Bilirubin 0.8 (0.2-1.0) mg/dl AST 134 H (13-39) U/L ALT 92 H (7-52) U/L Alkaline Phosphatase 165 H (34-104) U/L Troponin I High Sens 30.2 H (0-20) pg/ml C-Reactive Protein (0-0.5) mg/dl B-Natriuretic Peptide (0-100) pg/ml Total Protein 6.9 (6.0-8.3) gm/dl Albumin 2.6 L (3.4-5.0) gm/dl Globulin 4.3 H (2.5-4.0) gm/dl Albumin/Globulin Ratio 0.6 L (0.9-2) Procalcitonin (0-0.5) ng/ml Nasal Screen MRSA (PCR) (Negative) SARS-CoV-2, RNA, NAAT (NEGATIVE) Blood Type Antibody Screen 05/25/22 05/25/22 05/25/22 Range/Units 14:50 14:50 14:58 WBC (4.8-10.8) K/ul RBC (4.63-6.08) M/uL Hgb (14.0-18.0) g/dl POC Hgb 10.2 L (14.0-18.0) g/dl Hct (40.1-51.0) % POC Hct 30 L (42-52) % MCV (80.0-100.0) fL MCH (25.0-34.0) pg MCHC (32.0-36.0) g/dL RDW Std Deviation (36.4-46.3) fL RDW Coeff of Chris (11.5-14.5) % Plt Count (130-400) K/uL MPV (9.4-12.4) fL Immature Gran % (Auto) % Neut % (Auto) % Lymph % (Auto) % Aurora % (Auto) % Eos % (Auto) % Baso % (Auto) % Neut # (Auto) (1.4-6.5) K/uL Lymph # (Auto) (1.2-3.4) K/uL Aurora # (Auto) (0.24-0.82) K/uL Eos # (Auto) (0-0.50) K/uL Baso # (Auto) (0-0.2) K/uL Immature Gran # (Auto) (0.00-0.02) K/uL PT (9.0-12.0) Seconds INR (0.9-1.1) APTT (21.0-31.0) Seconds PTT Ratio VBG pH (7.36-7.41) VBG pCO2 (38-50) mmHg VBG pO2 mmHg VBG HCO3 mmol/L VBG O2 Saturation % VBG Base Excess mEq/L POC Sodium 137 (135-144) mmol/L Sodium (136-145) mmol/L POC Potassium 4.4 (3.3-5.0) mmol/L Potassium (3.5-5.1) mmol/L POC Chloride 98 L (101-112) mmol/L Chloride (98-107) mmol/L Carbon Dioxide (21-32) mmol/L POC Total CO2 28 (24-31) mmol/L Anion Gap (3-11) POC Anion Gap 17.0 (16-25) mmol/L POC BUN 24 H (7-18) mg/dl BUN (6-23) mg/dl Creatinine (0.6-1.4) mg/dl POC Creatinine 1.8 H (0.6-1.3) mg/dl Est Cr Clr Drug Dosing Est GFR ( Amer) ml/min Est GFR (Non-Af Amer) ml/min BUN/Creatinine Ratio (10-20) Glucose (70-99(Fasting)) mg/dl POC Glucose (other) 99 (70-99) mg/dl Lactate (0.4-2.0) mmol/L Calcium (8.5-10.1) mg/dl POC Ioniz Calcium Rebekah 1.06 L (1.12-1.32) mmol/l Magnesium (1.7-2.4) mg/dl Total Bilirubin (0.2-1.0) mg/dl AST (13-39) U/L ALT (7-52) U/L Alkaline Phosphatase (34-104) U/L Troponin I High Sens (0-20) pg/ml C-Reactive Protein 11.21 H (0-0.5) mg/dl B-Natriuretic Peptide (0-100) pg/ml Total Protein (6.0-8.3) gm/dl Albumin (3.4-5.0) gm/dl Globulin (2.5-4.0) gm/dl Albumin/Globulin Ratio (0.9-2) Procalcitonin 0.56 H (0-0.5) ng/ml Nasal Screen MRSA (PCR) (Negative) SARS-CoV-2, RNA, NAAT (NEGATIVE) Blood Type Antibody Screen 05/25/22 05/25/22 05/25/22 Range/Units 15:15 15:15 15:26 WBC (4.8-10.8) K/ul RBC (4.63-6.08) M/uL Hgb (14.0-18.0) g/dl POC Hgb (14.0-18.0) g/dl Hct (40.1-51.0) % POC Hct (42-52) % MCV (80.0-100.0) fL MCH (25.0-34.0) pg MCHC (32.0-36.0) g/dL RDW Std Deviation (36.4-46.3) fL RDW Coeff of Chris (11.5-14.5) % Plt Count (130-400) K/uL MPV (9.4-12.4) fL Immature Gran % (Auto) % Neut % (Auto) % Lymph % (Auto) % Aurora % (Auto) % Eos % (Auto) % Baso % (Auto) % Neut # (Auto) (1.4-6.5) K/uL Lymph # (Auto) (1.2-3.4) K/uL Aurora # (Auto) (0.24-0.82) K/uL Eos # (Auto) (0-0.50) K/uL Baso # (Auto) (0-0.2) K/uL Immature Gran # (Auto) (0.00-0.02) K/uL PT (9.0-12.0) Seconds INR (0.9-1.1) APTT (21.0-31.0) Seconds PTT Ratio VBG pH 7.45 H (7.36-7.41) VBG pCO2 44 (38-50) mmHg VBG pO2 43 mmHg VBG HCO3 31 mmol/L VBG O2 Saturation 72.2 % VBG Base Excess 5.8 mEq/L POC Sodium (135-144) mmol/L Sodium (136-145) mmol/L POC Potassium (3.3-5.0) mmol/L Potassium (3.5-5.1) mmol/L POC Chloride (101-112) mmol/L Chloride (98-107) mmol/L Carbon Dioxide (21-32) mmol/L POC Total CO2 (24-31) mmol/L Anion Gap (3-11) POC Anion Gap (16-25) mmol/L POC BUN (7-18) mg/dl BUN (6-23) mg/dl Creatinine (0.6-1.4) mg/dl POC Creatinine (0.6-1.3) mg/dl Est Cr Clr Drug Dosing Est GFR ( Amer) ml/min Est GFR (Non-Af Amer) ml/min BUN/Creatinine Ratio (10-20) Glucose (70-99(Fasting)) mg/dl POC Glucose (other) (70-99) mg/dl Lactate (0.4-2.0) mmol/L Calcium (8.5-10.1) mg/dl POC Ioniz Calcium Rebekah (1.12-1.32) mmol/l Magnesium (1.7-2.4) mg/dl Total Bilirubin (0.2-1.0) mg/dl AST (13-39) U/L ALT (7-52) U/L Alkaline Phosphatase (34-104) U/L Troponin I High Sens (0-20) pg/ml C-Reactive Protein (0-0.5) mg/dl B-Natriuretic Peptide (0-100) pg/ml Total Protein (6.0-8.3) gm/dl Albumin (3.4-5.0) gm/dl Globulin (2.5-4.0) gm/dl Albumin/Globulin Ratio (0.9-2) Procalcitonin (0-0.5) ng/ml Nasal Screen MRSA (PCR) Negative (Negative) SARS-CoV-2, RNA, NAAT POSITIVE A* (NEGATIVE) Blood Type Antibody Screen 05/25/22 05/25/22 05/25/22 Range/Units 15:26 15:26 16:25 WBC (4.8-10.8) K/ul RBC (4.63-6.08) M/uL Hgb (14.0-18.0) g/dl POC Hgb (14.0-18.0) g/dl Hct (40.1-51.0) % POC Hct (42-52) % MCV (80.0-100.0) fL MCH (25.0-34.0) pg MCHC (32.0-36.0) g/dL RDW Std Deviation (36.4-46.3) fL RDW Coeff of Chris (11.5-14.5) % Plt Count (130-400) K/uL MPV (9.4-12.4) fL Immature Gran % (Auto) % Neut % (Auto) % Lymph % (Auto) % Aurora % (Auto) % Eos % (Auto) % Baso % (Auto) % Neut # (Auto) (1.4-6.5) K/uL Lymph # (Auto) (1.2-3.4) K/uL Aurora # (Auto) (0.24-0.82) K/uL Eos # (Auto) (0-0.50) K/uL Baso # (Auto) (0-0.2) K/uL Immature Gran # (Auto) (0.00-0.02) K/uL PT (9.0-12.0) Seconds INR (0.9-1.1) APTT (21.0-31.0) Seconds PTT Ratio VBG pH (7.36-7.41) VBG pCO2 (38-50) mmHg VBG pO2 mmHg VBG HCO3 mmol/L VBG O2 Saturation % VBG Base Excess mEq/L POC Sodium (135-144) mmol/L Sodium (136-145) mmol/L POC Potassium (3.3-5.0) mmol/L Potassium (3.5-5.1) mmol/L POC Chloride (101-112) mmol/L Chloride (98-107) mmol/L Carbon Dioxide (21-32) mmol/L POC Total CO2 (24-31) mmol/L Anion Gap (3-11) POC Anion Gap (16-25) mmol/L POC BUN (7-18) mg/dl BUN (6-23) mg/dl Creatinine (0.6-1.4) mg/dl POC Creatinine (0.6-1.3) mg/dl Est Cr Clr Drug Dosing Est GFR ( Amer) ml/min Est GFR (Non-Af Amer) ml/min BUN/Creatinine Ratio (10-20) Glucose (70-99(Fasting)) mg/dl POC Glucose (other) (70-99) mg/dl Lactate 1.7 (0.4-2.0) mmol/L Calcium (8.5-10.1) mg/dl POC Ioniz Calcium Rebekah (1.12-1.32) mmol/l Magnesium (1.7-2.4) mg/dl Total Bilirubin (0.2-1.0) mg/dl AST (13-39) U/L ALT (7-52) U/L Alkaline Phosphatase (34-104) U/L Troponin I High Sens (0-20) pg/ml C-Reactive Protein (0-0.5) mg/dl B-Natriuretic Peptide 169 H (0-100) pg/ml Total Protein (6.0-8.3) gm/dl Albumin (3.4-5.0) gm/dl Globulin (2.5-4.0) gm/dl Albumin/Globulin Ratio (0.9-2) Procalcitonin (0-0.5) ng/ml Nasal Screen MRSA (PCR) (Negative) SARS-CoV-2, RNA, NAAT (NEGATIVE) Blood Type O Positive Antibody Screen NEGATIVE Administered Medications Discontinued Medications Albuterol (Albut/Ipratrop 3mg/0.5mg Neb 3 Ml Vial) 3 ml INH NOW STA Stop: 05/25/22 14:52 Last Admin: 05/25/22 15:00 Dose: 3 ml Documented By: BRYAN Albuterol (Albut/Ipratrop 3mg/0.5mg Neb 3 Ml Vial) 3 ml NEB NOW STA; Protocol Stop: 05/25/22 16:24 Last Admin: 05/25/22 16:31 Dose: 3 ml Documented By: LYNDON Sodium Chloride (Nss 1000ml) 500 mls @ 999 mls/hr IV .Q31M ONE Stop: 05/25/22 15:24 Last Infusion: 05/25/22 16:26 Dose: 0 mls/hr Documented By: Admin: 05/25/22 15:50 Dose: 999 mls/hr Documented By: JIM Vancomycin HCl 2,750 mg/ (Sodium Chloride) 555 mls @ 180 mls/hr IV NOW ONE Stop: 05/25/22 17:58 Last Admin: 05/25/22 16:31 Dose: 180 mls/hr Documented By: LYNDON Cefepime HCl (Maxipime) 2,000 mg in 20 mls @ 5 mls/min IV NOW STA; Protocol Stop: 05/25/22 14:57 Last Admin: 05/25/22 16:31 Dose: 5 mls/min Documented By: LYNDON Methylprednisolone (Methylprednisolone 125 Mg/2 Ml Vial) 125 mg IV NOW STA Stop: 05/25/22 14:52 Last Admin: 05/25/22 15:50 Dose: 125 mg Documented By: JIM Warfarin Sodium (Warfarin Sod 5 Mg Tab) 5 mg PO NOW ONE Stop: 05/25/22 18:49 Last Admin: 05/25/22 19:33 Dose: 5 mg Documented By: KMF Imaging Data Radiologist's Impression: Chest X-Ray 05/25/22 14:52 XR chest 1V portable CLINICAL HISTORY: Dyspnea TECHNIQUE: Single frontal radiograph of the chest was obtained. Comparison: Comparison is made to chest radiographs of the 2021 FINDINGS: Pacemaker defibrillator is seen. Cardiomegaly is noted. Lungs are underinflated. Airspace opacities are seen most prominent in the left lower lung and right upper lung. No evidence of pleural effusion or pneumothorax. IMPRESSION: Multifocal airspace opacities may represent atelectasis, pneumonia, and/or aspiration. ACT 112: Negative or not required by law. Electronically signed by: Ru Daily M.D. 05/25/2022 4:[address] 05/25/22 15:23 CT chest diagnostic wo con CLINICAL HISTORY: hypoxemia, lung ca, recent covid TECHNIQUE: Multidetector row helical CT of the chest was performed. Coronal and sagittal reformations were obtained. Automated dose lowering techniques and/or adjustment according to patient size were utilized for this exam. CT DOSE: 704.43 mGycm Comparison: Comparison is made to chest radiograph 05/25/2022 FINDINGS: Lungs and pleura: Reticular and groundglass opacities are seen in the bilateral lungs. Heart and pericardium: There is cardiomegaly without evidence of pericardial effusion. Vessels: Moderate atherosclerotic changes in the aorta and coronary arteries. Mediastinum and betty: Unremarkable. Chest wall and lower neck: Unremarkable. Abdomen: Unremarkable. Bones: Unremarkable. IMPRESSION: Reticular and groundglass opacities are seen, increased from chest radiograph 05/18/2022. This likely reflects an infectious/inflammatory process, possibly superimposed upon fibrosis. ACT 112: Negative or not required by law. Electronically signed by: Ru Daily M.D. 05/25/2022 6:26 PM Discharge Plan Visit Data Chief Complaint: Referred by Doctor Stated Complaint: REF BY , CANCER, PNUEMONIA ED Provider: Kolton Shepherd Discharge Problem: Acute hypoxemic respiratory failure Patient Disposition: Admitted As Inpatient Discharge Instructions Interventions: ED Discharge Assessment Last Done: 05/25/22 19:25
[2022-05-25] MEDS ORDERED: SODIUM CHLORIDE 0.9% 1000ML 1,000 ML IV SCH (15:00)
[2022-05-25 15:10] LABS: iSTAT Creatinine 1.8 mg/dl (0.6-1.3); iSTAT Hemoglobin 10.2 g/dl (14.0-18.0); iSTAT Ionized Calcium 1.06 mmol/l (1.12-1.32); iSTAT Potassium 4.4 mmol/L (3.3-5.0)
[2022-05-25 15:13] LABS: Basophils # (auto) 0.02 K/uL (0-0.2); Basophils % (auto) 0.2 %; Eosinophils # (auto) 0.02 K/uL (0-0.50); Eosinophils % (auto) 0.2 %; Hematocrit (blood only) 27.8 % (40.1-51.0); Hemoglobin 8.7 g/dl (14.0-18.0); Immature Granulocytes # (auto) 0.07 K/uL (0.00-0.02); Immature Granulocytes % (auto) 0.7 %; Lymphocytes # (auto) 0.46 K/uL (1.2-3.4); Lymphocytes % (auto) 4.9 %; Mean Corpuscular Hgb Conc 31.3 g/dL (32.0-36.0); Mean Corpuscular Volume 89.4 fL (80.0-100.0); Mean Platelet Volume 11.3 fL (9.4-12.4); Monocytes # (auto) 0.76 K/uL (0.24-0.82); Neutrophils # (auto) 8.14 K/uL (1.4-6.5); Platelet Count 219 K/uL (130-400); RDW Coefficient of Variation 17.7 % (11.5-14.5); RDW Standard Deviation 56.6 fL (36.4-46.3); Red Blood Count 3.11 M/uL (4.63-6.08); White Blood Count 9.47 K/ul (4.8-10.8)
[2022-05-25 15:29] LABS: INR 1.4 (0.9-1.1); Partial Thromboplastin Ratio 1.3; Partial Thromboplastin Time 34.5 Seconds (21.0-31.0); Prothrombin Time 15.1 Seconds (9.0-12.0)
[2022-05-25 15:39] LABS: Base Excess VBG 5.8 mEq/L; HCO3 VBG 31 mmol/L; Oxygen Saturation VBG 72.2 %; PCO2 VBG 44 mmHg (38-50); PO2 VBG 43 mmHg; pH VBG 7.45 (7.36-7.41)
[2022-05-25 15:59] LABS: Alanine Aminotransferase 92 U/L (7-52); Albumin Globulin Ratio 0.6 (0.9-2); Albumin Level 2.6 gm/dl (3.4-5.0); Alkaline Phosphatase 165 U/L (34-104); Anion Gap 5 (3-11); Aspartate Aminotransferase 134 U/L (13-39); BUN Creatinine Ratio 14.5 (10-20); Bilirubin,Total 0.8 mg/dl (0.2-1.0); Blood Urea Nitrogen 25 mg/dl (6-23); Calcium 7.6 mg/dl (8.5-10.1); Carbon Dioxide 30 mmol/L (21-32); Chloride 100 mmol/L (98-107); Est GFR (Non-African American) 41.4 ml/min; Globulin 4.3 gm/dl (2.5-4.0); Glucose 94 mg/dl (70-99(Fasting)); Magnesium 1.9 mg/dl (1.7-2.4); Potassium 4.4 mmol/L (3.5-5.1); Sodium 135 mmol/L (136-145); Total Protein 6.9 gm/dl (6.0-8.3)
[2022-05-25 16:04] LABS: Troponin I High Sensitivity 30.2 pg/ml (0-20)
--- NOTE | 2022-05-25 16:16 | XRay Report ---
XR chest 1V portable CLINICAL HISTORY: Dyspnea TECHNIQUE: Single frontal radiograph of the chest was obtained. Comparison: Comparison is made to chest radiographs of the 2021 FINDINGS: Pacemaker defibrillator is seen. Cardiomegaly is noted. Lungs are underinflated. Airspace opacities a re seen most prominent in the left lower lung and right upper lung. No evidence of pleural effusion o r pneumothorax. IMPRESSION: Multifocal airspace opacities may represent atelectasis, pneumonia, and/or aspiration. ACT 112: Negative or not required by law. Electronically signed by: Ru Daily M.D. 05/25/2022 4:15 PM
[2022-05-25] MEDS ORDERED: ALBUT/IPRATROP 3MG/0.5MG NEB 3 ML VIAL NEB STA (16:23)
--- NOTE | 2022-05-25 18:16 | History & Physical Report ---
Date of Service May 25, 2022 Assessment & Plan (1) Acute respiratory failure with hypoxemia: Plan: Recent diagnosis of COVID-19 virus infection on 05/13/2022 and was treated with dexamethasone Has been noted to be very hypoxic and doctor's office with the saturation of 70s Repeat COVID test came back positive with increasing infiltrate involving the lungs on chest x-ray Received a dose of Solu-Medrol in the emergency room and will continue with intravenous dexamethasone Is not a candidate for remdesivir and/or any immunomodulator due to immunosuppressed condition with colon cancer Has been requiring about 8 L of oxygen to maintain saturation Will need pulmonary evaluation if the condition does not get any better and possible mechanical ventilator down the line (2) Pneumonia due to COVID-19 virus: Plan: Fully vaccinated All of the family members are affected with COVID-19 virus infection Initial COVID-19 test was positive on of this month and remained positive as of today Chest x-ray did show increasing opacities May have bacterial pneumonia on top of COVID-19 CRP more than 11 and procalcitonin is not elevated Recently finished a course of antibiotic Will not give any antibiotic for now (3) Rectal cancer: Plan: Was diagnosed in 2020 and has been under chemotherapy Last chemo received about 1 month before Recent history of bright red blood per rectum Has not been complaining any rectal pain and there is no bleeding as of now Hemoglobin remained normal at 8.7 as of 05/25/2022 Will monitor CBC NOTED from Recent Admission: Patient was admitted a few weeks ago for rectal bleed in the setting of known colon cancer with biopsies consistent with an infiltrating well differentiated carcinoma. Was transferred to [facility] for care from colorectal service by Dr. Sanchez given complexity of patient with need for continued anticoagulation without interruption and persistent cancer related to GI bleeding. [facility] Colorectal service felt bleeding was attributed primarily to supratherapeutic INR and discharged once bleeding resolved. Per patient's report, colorectal surgery is planning on surgical intervention o nce he completes the next cycle of chemo. (4) Ventricular tachycardia (paroxysmal): (5) Paroxysmal A-fib: (6) Ischemic cardiomyopathy with implantable cardioverter-defibrillator (ICD): Plan: Status post ICD placement No acute chest pain and no palpitation EKG showing paced rhythm with a rate of 64/min (7) CKD (chronic kidney disease) stage 3, GFR 30-59 ml/min: Plan: Creatinine is minimally high at 1.73 Will advised to drink more fluid and try to avoid any intravenous fluid Monitor PRP (8) Sleep apnea: (9) Hypothyroidism: Plan: Continue supplement DVT prophylaxis Has been on Coumadin and INR is low at 1.4 We will continue with Coumadin and give additional dose of Coumadin today Monitor INR CODE STATUS Full History of Present Illness Chief Complaint: Increasing shortness of breath, weakness and dizziness Primary Care Provider: Radha Rodriguez MD He is a 61-year-old obese male with significant past medical history of sigmoid/colon cancer, mixed ischemic and nonischemic cardiomyopathy, V. 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 He was sent home on oral antibiotics including doxycycline and Augmentin which he has almost finished. He has been complaining of more shortness of breath, weakness and dizziness that he could hardly move around without being short of breath and noted to have very low saturation of 70s at doctor's office and he was sent to emergency room for further evaluation. Denies any chest pain and/or palpitation, does not have any abdominal distention but feels nauseous without vomiting and there is no increasing rectal bleeding. No increasing swelling of the legs. Apparently all of his family members has COVID-19 virus infection and he is being fully vaccinated. He was diagnosed to have COVID-19 virus infection during his recent hospitalization which was treated with IV dexamethasone and he cannot have remdesivir due to increased LFTs and other immunotherapy due to colon cancer. His x-ray did show increasing infiltration suggestive of worsening COVID-19 virus infection/pneumonia and he was a started with intravenous Solu-Medrol and also received a dose of vancomycin and intravenous cefepime. Awaiting CRP and procalcitonin level Allergies Allergy/AdvReac Type Severity Reaction Status Date / Time phytonadione (vitamin K1) AdvReac Severe Chest Pain Verified 05/15/22 08:51 Home Medications Medication Instructions Recorded Confirmed Type amiodarone 200 mg tablet 300 mg PO Q12 09/07/19 05/13/22 History hydrocodone 5 mg-acetaminophen 325 1 tab PO Q6 PRN Pain 09/07/19 05/13/22 History mg tablet levothyroxine 112 mcg tablet 112 mcg PO DAILYBB 01/11/20 05/13/22 History nitroglycerin 0.4 mg sublingual 0.4 mg sublingual UD PRN Chest Pain 08/13/20 05/13/22 History tablet (Nitrostat) isosorbide mononitrate 30 mg 30 mg PO QPM 12/25/20 05/13/22 History tablet,extended release 24 hr metoprolol succinate 100 mg 100 mg PO BID 10/20/21 05/13/22 History tablet,extended release 24 hr ferrous sulfate 325 mg (65 mg 325 mg PO DAILY #30 tabs 10/21/21 05/13/22 Rx iron) tablet,delayed release iron,carbonyl 65 mg-vitamin C 125 1 tab PO DAILY 11/14/21 05/13/22 History mg tablet,delayed release (Vitron-C) ondansetron HCl 8 mg tablet 8 mg PO Q8H PRN Pain 12/04/21 05/13/22 History tamsulosin 0.4 mg capsule (Flomax) 0.4 mg PO HS #14 caps 12/20/21 05/13/22 Rx hydralazine 25 mg tablet 25 mg PO AMHS 04/27/22 05/13/22 History capecitabine 500 mg tablet 500 mg PO DIRECTED 05/13/22 05/13/22 History amoxicillin 875 mg tablet 875 mg PO BID #10 tabs 05/19/22 Rx codeine 10 mg-guaifenesin 100 mg/5 10 ml PO Q6H PRN cough #120 mL 05/19/22 Rx mL oral liquid docusate sodium 100 mg capsule 100 mg PO BID #60 caps 05/19/22 Rx doxycycline hyclate 100 mg capsule 100 mg PO BID #10 caps 05/19/22 Rx furosemide 20 mg tablet 40 mg PO DAILY #60 tabs 05/19/22 Rx warfarin 5 mg tablet 2.5 mg PO DAILY #30 tabs 05/19/22 05/13/22 Rx Past Med/Surg History Medical History Afib Maintained on low dose Amiodarone CAD (coronary artery disease) Non-obstructive per 2012 cath Cardiomyopathy Mixed ischemic and nonischemic CM - EF <20%- complicated by VT. ICD placed 2013 No VT episodes since 10/2020 per cardio records Current EF 20-25% F/U RADHA GALLO CHF (congestive heart failure) CHF (congestive heart failure) hx/no recent issues Chronic back pain CKD (chronic kidney disease) stage 3, GFR 30-59 ml/min Depression Elevated LFTs Gout History of kidney stones History of ventricular tachycardia Hypertension Hypothyroidism LBBB (left bundle branch block) Incomplete per records Left ventricular aneurysm Dx'ed around 2011- on Coumadin- cardio monitoring Moderate in size and noted to apical and inferior area. Hx of LV apical thrombus Myocardial Infarction 15+ years ago- medically managed On anticoagulant therapy WARFARIN Paroxysmal A-fib Pneumonia Pneumonia HX-2000 Presence of combination internal cardiac defibrillator (ICD) and pacemaker Implanted 2013 (follows with cardiology/Dr. Jaffe/RADHA GALLO) Sleep apnea CPAP SOB (shortness of breath) on exertion ON OCC Surgical History H/O arthroscopic knee surgery multiple on bilateral knees H/O neck surgery History of cardiac cath 2011= NO STENTS History of colonoscopy (~09/15/21) History of cystoscopy History of esophagogastroduodenoscopy (EGD) History of implantable cardioverter-defibrillator (ICD) placement History of laminectomy L4-L5 History of lithotripsy History of lumbar surgery 09/17/19 Grade 1 view Mac 3, magnet placed on L chest wall during procedure History of tonsillectomy Status post uvulopalatopharyngoplasty Family History Father , 54yo Lung cancer Mother , 85yo Alzheimer disease Brother No problems noted. Brother No problems noted. Sister No problems noted. Daughter No problems noted. Daughter No problems noted. 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 Constitutional: well developed, well nourished, + acute distress (Mild to moderate distress due to shortness of breath), + ill appearing and + morbidly obese Eyes: PERRL, conjunctivae normal, anicteric sclerae ENMT: external ear and nose normal, oropharynx normal Neck: trachea midline, no thyromegaly Respiratory: + respiratory distress (Mild to moderate distress) Auscultation: + diminished lung sounds and + crackles (Bibasilar more on the left than the right) Cardiovascular: Rate/Rhythm: regular rate and regular rhythm; not tachycardic Heart Sounds: normal S1 and normal S2; no murmur Extremities: no edema Gastrointestinal (Abdomen): Inspection/Auscultation: + abdomen distended and normal bowel sounds Percussion/Palpation: abdomen soft; abdomen nontender Musculoskeletal: No acute arthritis involving any joint Neurologic: Alert, awake and oriented x3. No focal sensory or no motor deficit appreciated Psychiatric: A+Ox3, euthymic affect Lymphatic: no cervical or axillary lymphadenopathy Results & Data Results & Data ([place]) Vital Signs (Past 12 Hours) Vital Signs Temp Pulse Resp BP Pulse Ox O2 Del Method O2 Flow Rate 05/25/22 15:00 97 Oxymask 8 05/25/22 14:35 36.9 C 70 26 H 93/55 L 82 L Room Air Laboratory Results Short CBC 05/25/22 Range/Units 14:50 WBC 9.47 (4.8-10.8) K/ul Hgb 8.7 L (14.0-18.0) g/dl Hct 27.8 L (40.1-51.0) % Plt Count 219 (130-400) K/uL BMP 05/25/22 14:50 Sodium 135 L Potassium 4.4 Chloride 100 Carbon Dioxide 30 BUN 25 H Creatinine 1.73 H Glucose 94 Calcium 7.6 L Liver Function 05/25/22 Range/Units 14:50 Total Bilirubin 0.8 (0.2-1.0) mg/dl AST 134 H (13-39) U/L ALT 92 H (7-52) U/L Alkaline Phosphatase 165 H (34-104) U/L Albumin 2.6 L (3.4-5.0) gm/dl Medications Administered Current Inpatient Medications Miscellaneous Information (Vancomycin Consult Active) 1 each N/A UD PRN PRN Reason: Consult Stop: 06/24/22 14:53 Code Status & VTE Plan VTE Prophylaxis Plan VTE Prophylaxis will be ordered: Yes (1) Hypothyroidism Hypothyroidism type: unspecified Qualified Code(s): E03.9 - Hypothyroidism, unspecified
--- NOTE | 2022-05-25 18:28 | CT Scan Report ---
CT chest diagnostic wo con CLINICAL HISTORY: hypoxemia, lung ca, recent covid TECHNIQUE: Multidetector row helical CT of the chest was performed. Coronal and sagittal reformations were obtained. Automated dose lowering techniques and/or adjustment according to patient size were u tilized for this exam. CT DOSE: 704.43 mGycm Comparison: Comparison is made to chest radiograph 05/25/2022 FINDINGS: Lungs and pleura: Reticular and groundglass opacities are seen in the bilateral lungs. Heart and pericardium: There is cardiomegaly without evidence of pericardial effusion. Vessels: Moderate atherosclerotic changes in the aorta and coronary arteries. Mediastinum and betty: Unremarkable. Chest wall and lower neck: Unremarkable. Abdomen: Unremarkable. Bones: Unremarkable. IMPRESSION: Reticular and groundglass opacities are seen, increased from chest radiograph 05/18/2022. This likely reflects an infectious/inflammatory process, possibly superimposed upon fibrosis. ACT 112: Negative or not required by law. Electronically signed by: Ru Daily M.D. 05/25/2022 6:26 PM
[2022-05-25] MEDS ORDERED: WARFARIN SOD 5 MG TAB PO ONE (18:48)
[2022-05-25] MEDS ORDERED: HYDROCODONE/ACETAMOPHEN 5/325MG TAB PO PRN (19:54)
[2022-05-25] MEDS ORDERED: NITROGLYCERIN SL 0.4 MG/TAB TAB SL PRN (19:54)
[2022-05-25] MEDS: METOPROLOL SUCC 50MG EXT REL TAB PO SCH (20:50)
[2022-05-25] MEDS: hydrALAZINE HCL 25 MG TAB PO SCH (20:50)
[2022-05-25] MEDS: ISOSORBIDE MONO EXTENDED REL 30 MG TABCR PO SCH (20:50)
[2022-05-25] MEDS: AMIODARONE 200 MG TAB PO SCH (20:50)
[2022-05-25] MEDS: DOCUSATE SODIUM 100 MG CAP PO SCH (21:22)
[2022-05-25] MEDS: TAMSULOSIN HCL 0.4 MG CAP PO SCH (21:23)
[2022-05-25] MEDS: ALBUT/IPRATROP 3MG/0.5MG NEB 3 ML VIAL NEB PRN (21:49)
[2022-05-26] MEDS: LEVOTHYROXINE SODIUM 112 MCG TABLET PO SCH (06:07)
[2022-05-26] MEDS: ALBUT/IPRATROP 3MG/0.5MG NEB 3 ML VIAL NEB PRN ×3 (06:30→22:44)
[2022-05-26 06:31] LABS: Basophils # (auto) 0.01 K/uL (0-0.2); Basophils % (auto) 0.2 %; Hematocrit (blood only) 23.9 % (40.1-51.0); Hemoglobin 7.5 g/dl (14.0-18.0); Immature Granulocytes # (auto) 0.05 K/uL (0.00-0.02); Immature Granulocytes % (auto) 0.9 %; Lymphocytes % (auto) 5.1 %; Mean Corpuscular Hemoglobin 27.5 pg (25.0-34.0); Mean Corpuscular Hgb Conc 31.4 g/dL (32.0-36.0); Mean Corpuscular Volume 87.5 fL (80.0-100.0); Mean Platelet Volume 11.6 fL (9.4-12.4); Monocytes # (auto) 0.33 K/uL (0.24-0.82); Monocytes % (auto) 5.6 %; Neutrophils # (auto) 5.17 K/uL (1.4-6.5); Neutrophils % (auto) 88.2 %; Platelet Count 179 K/uL (130-400); RDW Coefficient of Variation 17.9 % (11.5-14.5); RDW Standard Deviation 56.9 fL (36.4-46.3); Red Blood Count 2.73 M/uL (4.63-6.08); White Blood Count 5.86 K/ul (4.8-10.8)
[2022-05-26 06:50] LABS: Appearance Urine Cloudy (Clear); Bacteria Urine Automated Negative (Negative); Bilirubin Urine Negative (Negative); Blood Urine Negative (Negative); Color Urine Dark Yellow; Glucose Urine UA Negative (Negative); Ketones Urine Trace (Negative); Leukocyte Esterase Urine Negative (Negative); Nitrite Urine Negative (Negative); Protein Urine 1+ (Negative); RBC Urine Automated 0-4 /hpf (0-4); Specific Gravity Urine 1.025 (1.000-1.030); Urobilinogen Urine Negative (Negative)
[2022-05-26 07:02] LABS: INR 1.5 (0.9-1.1); Prothrombin Time 15.2 Seconds (9.0-12.0)
[2022-05-26 07:05] LABS: Alanine Aminotransferase 74 U/L (7-52); Albumin Globulin Ratio 0.6 (0.9-2); Albumin Level 2.3 gm/dl (3.4-5.0); Alkaline Phosphatase 141 U/L (34-104); Anion Gap 2 (3-11); Aspartate Aminotransferase 99 U/L (13-39); BUN Creatinine Ratio 17.5 (10-20); Bilirubin,Total 0.6 mg/dl (0.2-1.0); Blood Urea Nitrogen 28 mg/dl (6-23); Calcium 7.4 mg/dl (8.5-10.1); Carbon Dioxide 30 mmol/L (21-32); Chloride 103 mmol/L (98-107); Est GFR (African American) 52.7 ml/min; Est GFR (Non-African American) 45.5 ml/min; Globulin 3.7 gm/dl (2.5-4.0); Glucose 105 mg/dl (70-99(Fasting)); Potassium 5.2 mmol/L (3.5-5.1); Sodium 135 mmol/L (136-145)
[2022-05-26 07:09] LABS: Polychromasia 1+; Tear Drop Cells 1+
[2022-05-26] MEDS ORDERED: LACTATED RINGER'S 500 ML IV ONE (08:01)
[2022-05-26] MEDS: FUROSEMIDE 40 MG TAB PO SCH (08:08)
[2022-05-26] MEDS: FERROUS SULFATE 325 MG TAB PO SCH (08:09)
[2022-05-26] MEDS: ASCORBIC ACID 500 MG TAB PO SCH (08:09)
[2022-05-26] MEDS: hydrALAZINE HCL 25 MG TAB PO SCH ×2 (08:10→20:54)
[2022-05-26] MEDS: METOPROLOL SUCC 50MG EXT REL TAB PO SCH ×2 (08:10→20:55)
[2022-05-26] MEDS: AMIODARONE 200 MG TAB PO SCH ×2 (08:10→20:54)
[2022-05-26] MEDS: DOCUSATE SODIUM 100 MG CAP PO SCH ×2 (08:10→20:56)
[2022-05-26] MEDS ORDERED: NON-FORMULARY MEDICATION (Iron,Carbonyl-Vitamin C [Vitron-C] 65 mg iron- 125 mg tablet,del PO SCH (09:00)
[2022-05-26] MEDS ORDERED: FERROUS SULFATE 325 MG TAB PO SCH (09:00)
--- NOTE | 2022-05-26 09:24 | Electrocardiogram Report ---
Test Reason : Blood Pressure : / mmHG Vent. Rate : 064 BPM Atrial Rate : 064 BPM P-R Int : 266 ms QRS Dur : 136 ms QT Int : 462 ms P-R-T Axes : 088 063 -09 degrees QTc Int : 476 ms Atrial-paced rhythm with prolonged AV conduction with occasional ventricular-paced complexes Non-specific intra-ventricular conduction block Possible Anterolateral infarct , age undetermined Abnormal ECG When compared with ECG of 14-MAY-2022 06:14, V Paced beats are present Confirmed by Bacilio Crespo ([id number]) on 05/26/2022 9:23:37 AM Referred By: Titi Rodriguez Confirmed By:Bacilio Crespo
[2022-05-26] MEDS: dexAMETHasone 6 MG in SYRINGE 0 ML IV SCH (09:31)
[2022-05-26] MEDS ORDERED: REMDESIVIR 200 MG in SODIUM CHLORIDE 0.9% 210 ML IV STA (12:18)
[2022-05-26] MEDS: ONDANSETRON INJ 2 MG/ML 2 ML VIAL IV PRN (12:19)
--- NOTE | 2022-05-26 12:31 | Hospitalist Progress Note ---
Date of Service May 26, 2022 Assessment & Plan (1) Acute respiratory failure with hypoxemia: Plan: - Recent diagnosis of COVID-19 virus infection on 05/13/2022 and was treated with dexamethasone - Has been noted to be very hypoxic and doctor's office with the saturation of 70s - Repeat COVID test came back positive with increasing infiltrate involving the lungs on chest x-ray - Received a dose of Solu-Medrol in the emergency room - continue on dexamethasone for 10 day course - started on remdesivir for 5 day course - Has been requiring about 7 L of oxygen to maintain saturation - wean O2 as tolerated (2) Pneumonia due to COVID-19 virus: Plan: - Fully vaccinated - Initial COVID-19 test was positive on of this month and remained positive as of today - Chest x-ray did show increasing opacities - CRP more than 11 and procalcitonin is not elevated - Recently finished a course of antibiotic - Will not give any antibiotic for now - dexamethasone and remdesivir as above - O2 supplementation, wean as tolerated (3) Rectal cancer: Plan: Was diagnosed in 2020 and has been under chemotherapy Last chemo received about 1 month before Recent history of bright red blood per rectum Has not been complaining any rectal pain and there is no bleeding as of now Hemoglobin remained normal at 8.7 as of 05/25/2022 Will monitor CBC NOTED from Recent Admission: Patient was admitted a few weeks ago for rectal bleed in the setting of known colon cancer with biopsies consistent with an infiltrating well differentiated carcinoma. Was transferred to [facility] for care from colorectal service by Dr. Sanchez given complexity of patient with need for continued anticoagulation without interruption and persistent cancer related to GI bleeding. [facility] Colorectal service felt bleeding was attributed primarily to supratherapeutic INR and discharged once bleeding resolved. Per patient's report, colorectal surgery is planning on surgical intervention once he completes the next cycle of chemo. (4) Ventricular tachycardia (paroxysmal): Plan: - rate controlled - continue BB (5) Paroxysmal A-fib: Plan: - rate controlled - continue BB and warfarin (6) Ischemic cardiomyopathy with implantable cardioverter-defibrillator (ICD): Plan: Status post ICD placement No acute chest pain and no palpitation EKG showing paced rhythm with a rate of 64/min (7) CKD (chronic kidney disease) stage 3, GFR 30-59 ml/min: Plan: Creatinine is minimally high at 1.73 Will advised to drink more fluid and try to avoid any intravenous fluid Monitor PRP - Cr improving (8) Sleep apnea: (9) Hypothyroidism: Plan: Continue supplement DVT prophylaxis Continue coumadin - will give dose of therapeutic lovenox today to bridge Monitor INR CODE STATUS Full Plan Zbigniew Mooney MD [facility] Medicine Admission and Anticipated Discharge Date Admission Date: May 25, 2022 Subjective He is a 61-year-old obese male with significant past medical history of sigmoid/colon cancer, mixed ischemic and nonischemic cardiomyopathy, V. 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 He returned with worsening hypoxia. He was given supplemental oxygen, dexamethasone, and remdesivir. He feels a little better today, breathing is still troublesome but feels better on oxygen. He still reports cough, some aches. Denies chest pain, diarrhea, abdominal pain, dysuria, fever or chills. Review of Systems Review of Systems: All systems reviewed & are unremarkable except as noted in Subjective All systems are reviewed and are unremarkable except as noted below Physical Exam Constitutional: WD/WN, vitals as above (on an oxymask at 7L) + obese; no acute distress Eyes: PERRL, conjunctivae normal, anicteric sclerae ENMT: external ear and nose normal, oropharynx normal Neck: trachea midline, no thyromegaly Respiratory: normal respiratory effort, lungs clear to auscultation Cardiovascular: RRR, no murmur, no edema Gastrointestinal (Abdomen): normal bowel sounds, soft, nontender, no hepatosplenomegaly Musculoskeletal: no cyanosis or clubbing, extremities motor strength 5/5 Skin: no rashes, warm and dry Neurologic: patellar DTR's 2+ bilat, sensation intact and PERRL, EOMI, accommodation nl, no face palsy, no dysarthria Psychiatric: A+Ox3, euthymic affect Results & Data Results & Data ([facility]) Vital Signs (Past 12 Hours) Vital Signs Temp Pulse Pulse Resp BP Pulse Ox O2 Del Method 05/26/22 10:41 36.7 C 64 20 131/65 97 Oxymask 05/26/22 09:01 62 05/26/22 08:55 Oxymask 05/26/22 07:54 36.9 C 65 22 129/65 92 Oxymask 05/26/22 06:30 66 18 91 Oxymask 05/26/22 03:00 37.0 C 60 20 124/63 98 Oxymask O2 Flow Rate 05/26/22 10:41 6 05/26/22 09:01 05/26/22 08:55 7 05/26/22 07:54 7 05/26/22 06:30 7 05/26/22 03:00 Laboratory Results Short CBC 05/25/22 05/26/22 Range/Units 14:50 05:52 WBC 9.47 5.86 (4.8-10.8) K/ul Hgb 8.7 L 7.5 L (14.0-18.0) g/dl Hct 27.8 L 23.9 L (40.1-51.0) % Plt Count 219 179 (130-400) K/uL BMP 05/25/22 05/26/22 14:50 05:52 Sodium 135 L 135 L Potassium 4.4 5.2 H Chloride 100 103 Carbon Dioxide 30 30 BUN 25 H 28 H Creatinine 1.73 H 1.60 H Glucose 94 105 H Calcium 7.6 L 7.4 L Liver Function 05/25/22 05/26/22 Range/Units 14:50 05:52 Total Bilirubin 0.8 0.6 (0.2-1.0) mg/dl AST 134 H 99 H (13-39) U/L ALT 92 H 74 H (7-52) U/L Alkaline Phosphatase 165 H 141 H (34-104) U/L Albumin 2.6 L 2.3 L (3.4-5.0) gm/dl Urine 05/26/22 Range/Units 06:03 Urine Color Dark Yellow Urine Appearance Cloudy A (Clear) Urine pH 5.0 (4.5-7.5) Ur Specific [place] 1.025 (1.000-1.030) Urine Protein 1+ H (Negative) Urine Glucose (UA) Negative (Negative) Medications Administered Current Inpatient Medications Hydrocodone Bitart/Acetaminophen (Hydrocodone/Acetamophen 5/325mg Tab) 1 tab PO Q6 PRN PRN Reason: Pain Stop: 06/08/22 19:53 Albuterol (Albut/Ipratrop 3mg/0.5mg Neb 3 Ml Vial) 3 ml NEB Q4R PRN; Protocol PRN Reason: Shortness Of Breath Or Wheezing Stop: 06/24/22 22:59 Last Admin: 05/26/22 12:26 Dose: 3 ml Amiodarone HCl (Amiodarone 200 Mg Tab) 300 mg PO Q12 TASH Stop: 06/24/22 20:59 Last Admin: 05/26/22 08:10 Dose: 300 mg Ascorbic Acid (Ascorbic Acid 500 Mg Tab) 250 mg PO QAM TASH Stop: 06/25/22 08:59 Last Admin: 05/26/22 08:09 Dose: 250 mg Docusate Sodium (Docusate Sodium 100 Mg Cap) 100 mg PO BID [facility] Stop: 06/24/22 20:59 Last Admin: 05/26/22 08:10 Dose: 100 mg Ferrous Sulfate (Ferrous Sulfate 325 Mg Tab) 325 mg PO QAM TASH Stop: 06/25/22 08:59 Last Admin: 05/26/22 08:09 Dose: 325 mg Furosemide (Furosemide 40 Mg Tab) 40 mg PO DAILY TASH Stop: 06/25/22 08:59 Last Admin: 05/26/22 08:08 Dose: 40 mg Guaifenesin/Codeine Phosphate (Guaifenesin/Codeine 200mg/20mg 10ml Udc) 10 ml PO Q6H PRN PRN Reason: cough Stop: 06/24/22 19:53 Last Admin: 05/26/22 12:19 Dose: 10 ml Hydralazine HCl (Hydralazine Hcl 25 Mg Tab) 25 mg PO BID TASH Stop: 06/24/22 20:59 Last Admin: 05/26/22 08:10 Dose: 25 mg Dexamethasone 6 mg/ Syringe 1.5 mls @ 1 mls/min IV Q24H TASH Stop: 06/25/22 08:59 Last Admin: 05/26/22 09:31 Dose: 1 mls/min Remdesivir 200 mg/ Sodium (Chloride) 250 mls @ 125 mls/hr IV NOW STA; Protocol Stop: 05/26/22 14:17 Remdesivir 100 mg/ Sodium (Chloride) 250 mls @ 250 mls/hr IV Q24H TASH Stop: 05/30/22 12:59 Isosorbide Mononitrate (Isosorbide [place] Extended Rel 30 Mg Tabcr) 30 mg PO QPM [facility] Stop: 06/24/22 20:59 Last Admin: 05/25/22 20:50 Dose: 30 mg Levothyroxine Sodium (Levothyroxine Sodium 112 Mcg Tablet) 112 mcg PO DAILYBB [facility] Stop: 06/25/22 06:29 Last Admin: 05/26/22 06:07 Dose: 112 mcg Metoprolol Succinate (Metoprolol Succ 50mg Ext Rel Tab) 100 mg PO BID [facility] Stop: 06/24/22 20:59 Last Admin: 05/26/22 08:10 Dose: 100 mg Miscellaneous (Patient's Height &/Or Weight Needed) 1 each N/A Q2H [facility] Stop: 05/27/22 10:31 Nitroglycerin (Nitroglycerin Sl 0.4 Mg/Tab Tab) 0.4 mg SL UD PRN PRN Reason: Chest Pain Stop: 06/24/22 19:53 Ondansetron HCl (Ondansetron Inj 2 Mg/Ml 2 Ml Vial) 4 mg IV Q6H PRN PRN Reason: Nausea And Vomiting Stop: 06/25/22 12:13 Last Admin: 05/26/22 12:19 Dose: 4 mg Tamsulosin HCl (Tamsulosin Hcl 0.4 Mg Cap) 0.4 mg PO HS [facility] Stop: 06/24/22 20:59 Last Admin: 05/25/22 21:23 Dose: 0.4 mg Warfarin Sodium (Warfarin Sod 2.5 Mg Tab) 2.5 mg PO DAILY@1600 [facility] Stop: 06/25/22 15:59 (1) Hypothyroidism Hypothyroidism type: unspecified Qualified Code(s): E03.9 - Hypothyroidism, unspecified
[2022-05-26] MEDS: Patient's HEIGHT &/or WEIGHT Needed SCH ×3 (12:35→15:46)
[2022-05-26] MEDS ORDERED: ENOXAPARIN 1 MG/KG SQ STA (12:36)
[2022-05-26] MEDS ORDERED: ENOXAPARIN INJ 120 MG/0.8 ML SYR SQ STA (12:44)
[2022-05-26] MEDS: WARFARIN SOD 2.5 MG TAB PO SCH (15:46)
[2022-05-26] MEDS: ISOSORBIDE MONO EXTENDED REL 30 MG TABCR PO SCH (20:54)
[2022-05-26] MEDS: TAMSULOSIN HCL 0.4 MG CAP PO SCH (20:56)
[2022-05-27] MEDS: LEVOTHYROXINE SODIUM 112 MCG TABLET PO SCH (05:49)
[2022-05-27 06:54] LABS: Basophils # (auto) 0.01 K/uL (0-0.2); Basophils % (auto) 0.1 %; Eosinophils # (auto) 0.01 K/uL (0-0.50); Eosinophils % (auto) 0.1 %; Hematocrit (blood only) 23.7 % (40.1-51.0); Hemoglobin 7.3 g/dl (14.0-18.0); Immature Granulocytes # (auto) 0.07 K/uL (0.00-0.02); Immature Granulocytes % (auto) 0.9 %; Lymphocytes # (auto) 0.41 K/uL (1.2-3.4); Lymphocytes % (auto) 5.3 %; Mean Corpuscular Hemoglobin 27.5 pg (25.0-34.0); Mean Corpuscular Hgb Conc 30.8 g/dL (32.0-36.0); Mean Corpuscular Volume 89.4 fL (80.0-100.0); Mean Platelet Volume 11.5 fL (9.4-12.4); Monocytes # (auto) 0.55 K/uL (0.24-0.82); Monocytes % (auto) 7.1 %; Neutrophils % (auto) 86.5 %; Platelet Count 179 K/uL (130-400); RDW Standard Deviation 58.4 fL (36.4-46.3); Red Blood Count 2.65 M/uL (4.63-6.08); White Blood Count 7.75 K/ul (4.8-10.8)
[2022-05-27 07:08] LABS: INR 1.9 (0.9-1.1); Prothrombin Time 19.2 Seconds (9.0-12.0)
[2022-05-27 07:25] LABS: Albumin Globulin Ratio 0.7 (0.9-2); Albumin Level 2.3 gm/dl (3.4-5.0); BUN Creatinine Ratio 20.3 (10-20); Bilirubin,Total 0.5 mg/dl (0.2-1.0); Calcium 7.4 mg/dl (8.5-10.1); Creatinine Clr Calc Pharmacy 58.6 ml/min; Est GFR (African American) 46.7 ml/min; Est GFR (Non-African American) 40.3 ml/min; Globulin 3.5 gm/dl (2.5-4.0); Magnesium 2.1 mg/dl (1.7-2.4); Phosphorus 3.7 mg/dl (2.5-4.9); Potassium 4.6 mmol/L (3.5-5.1); Total Protein 5.8 gm/dl (6.0-8.3)
[2022-05-27 07:32] LABS: Tear Drop Cells 1+
[2022-05-27] MEDS: ASCORBIC ACID 500 MG TAB PO SCH (08:19)
[2022-05-27] MEDS: FERROUS SULFATE 325 MG TAB PO SCH (08:19)
[2022-05-27] MEDS: FUROSEMIDE 40 MG TAB PO SCH (08:19)
[2022-05-27] MEDS: METOPROLOL SUCC 50MG EXT REL TAB PO SCH ×2 (08:20→20:11)
[2022-05-27] MEDS: DOCUSATE SODIUM 100 MG CAP PO SCH ×2 (08:20→20:11)
[2022-05-27] MEDS: AMIODARONE 200 MG TAB PO SCH ×2 (08:20→20:11)
[2022-05-27] MEDS: hydrALAZINE HCL 25 MG TAB PO SCH ×2 (08:21→20:11)
[2022-05-27] MEDS: ALBUT/IPRATROP 3MG/0.5MG NEB 3 ML VIAL NEB PRN ×2 (08:57→19:36)
[2022-05-27] MEDS: dexAMETHasone 6 MG in SYRINGE 0 ML IV SCH (10:49)
[2022-05-27] MEDS: ONDANSETRON INJ 2 MG/ML 2 ML VIAL IV PRN (11:03)
[2022-05-27] MEDS ORDERED: LACTATED RINGER'S 250 ML IV ONE (11:44)
[2022-05-27] MEDS: REMDESIVIR 100 MG in SODIUM CHLORIDE 0.9% 230 ML IV SCH (11:46)
--- NOTE | 2022-05-27 11:46 | Hospitalist Progress Note ---
Date of Service May 27, 2022 Assessment & Plan (1) Acute respiratory failure with hypoxemia: Plan: - Recent diagnosis of COVID-19 virus infection on 05/13/2022 and was treated with dexamethasone - Has been noted to be very hypoxic and doctor's office with the saturation of 70s - Repeat COVID test came back positive with increasing infiltrate involving the lungs on chest x-ray - Received a dose of Solu-Medrol in the emergency room - continue on dexamethasone for 10 day course - started on remdesivir for 5 day course - Has been requiring about 6 L of oxygen to maintain saturation - consider tocilizumab if patients oxygen requirements increase to HFNC - does not meet criteria at this time - wean O2 as tolerated (2) Pneumonia due to COVID-19 virus: Plan: - Fully vaccinated - Initial COVID-19 test was positive on of this month and remained positive as of today - Chest x-ray did show increasing opacities - CRP more than 11 and procalcitonin is not elevated - Recently finished a course of antibiotic - Will not give any antibiotic for now - dexamethasone and remdesivir as above - O2 supplementation, wean as tolerated (3) Rectal cancer: Plan: Was diagnosed in 2020 and has been under chemotherapy Last chemo received about 1 month before Recent history of bright red blood per rectum Has not been complaining any rectal pain and there is no bleeding as of now Hemoglobin remained normal at 8.7 as of 05/25/2022 Will monitor CBC NOTED from Recent Admission: Patient was admitted a few weeks ago for rectal bleed in the setting of known colon cancer with biopsies consistent with an infiltrating well differentiated carcinoma. Was transferred to [facility] [place] for care from colorectal service by Dr. Sanchez given complexity of patient with need for continued anticoagulation without interruption and persistent cancer related to GI bleeding. [facility] [place] Colorectal service felt bleeding was attributed primarily to supratherapeutic INR and discharged once bleeding resolved. Per patient's report, colorectal surgery is planning on surgical intervention once he completes the next cycle of chemo. (4) Ventricular tachycardia (paroxysmal): Plan: - rate controlled - continue BB (5) Paroxysmal A-fib: Plan: - rate controlled - continue BB and warfarin (6) Ischemic cardiomyopathy with implantable cardioverter-defibrillator (ICD): Plan: Status post ICD placement No acute chest pain and no palpitation EKG showing paced rhythm with a rate of 64/min (7) CKD (chronic kidney disease) stage 3, GFR 30-59 ml/min: Plan: Creatinine is minimally high at 1.73 Will advised to drink more fluid and try to avoid any intravenous fluid Monitor PRP - Cr improving (8) Sleep apnea: (9) Hypothyroidism: Plan: Continue supplement DVT prophylaxis Continue coumadin Monitor INR CODE STATUS Full Plan Zbigniew Mooney MD [facility] Medicine Admission and Anticipated Discharge Date Admission Date: May 25, 2022 Subjective He is a 61-year-old obese male with significant past medical history of sigmoid/colon cancer, mixed ischemic and nonischemic cardiomyopathy, V. 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 He returned with worsening hypoxia. He was given supplemental oxygen, dexamethasone, and remdesivir. He feels the same today and breathing is still troublesome but feels better on oxygen, especially when he coughs. He still reports cough, some aches. Denies chest pain, diarrhea, abdominal pain, dysuria, fever or chills. Review of Systems Review of Systems: All systems reviewed & are unremarkable except as noted in Subjective All systems are reviewed and are unremarkable except as noted below Physical Exam Constitutional: WD/WN, vitals as above (on an oxymask at 7L) + obese; no acute distress Eyes: PERRL, conjunctivae normal, anicteric sclerae ENMT: external ear and nose normal, oropharynx normal Neck: trachea midline, no thyromegaly Respiratory: normal respiratory effort, lungs clear to auscultation Cardiovascular: RRR, no murmur, no edema Gastrointestinal (Abdomen): normal bowel sounds, soft, nontender, no hepatosplenomegaly Musculoskeletal: no cyanosis or clubbing, extremities motor strength 5/5 Skin: no rashes, warm and dry Neurologic: patellar DTR's 2+ bilat, sensation intact and PERRL, EOMI, accommodation nl, no face palsy, no dysarthria Psychiatric: A+Ox3, euthymic affect Results & Data Results & Data ([facility]) Vital Signs (Past 12 Hours) Vital Signs Temp Pulse Pulse Resp BP Pulse Ox O2 Del Method 05/27/22 07:00 61 05/27/22 08:57 65 18 94 Oxymask 05/27/22 07:56 36.5 C 63 18 149/66 H 96 Oxymask 05/27/22 03:00 37.0 C 62 18 138/81 98 Oxymask O2 Flow Rate 05/27/22 07:00 05/27/22 08:57 6 05/27/22 07:56 6 05/27/22 03:00 Laboratory Results Short CBC 05/27/22 Range/Units 05:52 WBC 7.75 (4.8-10.8) K/ul Hgb 7.3 L (14.0-18.0) g/dl Hct 23.7 L (40.1-51.0) % Plt Count 179 (130-400) K/uL BMP 05/27/22 05:52 Sodium 136 Potassium 4.6 Chloride 101 Carbon Dioxide 32 BUN 36 H Creatinine 1.77 H Glucose 89 Calcium 7.4 L Liver Function 05/27/22 Range/Units 05:52 Total Bilirubin 0.5 (0.2-1.0) mg/dl AST 96 H (13-39) U/L ALT 71 H (7-52) U/L Alkaline Phosphatase 150 H (34-104) U/L Albumin 2.3 L (3.4-5.0) gm/dl Medications Administered Current Inpatient Medications Hydrocodone Bitart/Acetaminophen (Hydrocodone/Acetamophen 5/325mg Tab) 1 tab PO Q6 PRN PRN Reason: Pain Stop: 06/08/22 19:53 Albuterol (Albut/Ipratrop 3mg/0.5mg Neb 3 Ml Vial) 3 ml NEB Q4R PRN; Protocol PRN Reason: Shortness Of Breath Or Wheezing Stop: 06/24/22 22:59 Last Admin: 05/27/22 08:57 Dose: 3 ml Amiodarone HCl (Amiodarone 200 Mg Tab) 300 mg PO Q12 TASH Stop: 06/24/22 20:59 Last Admin: 05/27/22 08:20 Dose: 300 mg Ascorbic Acid (Ascorbic Acid 500 Mg Tab) 250 mg PO QAM TASH Stop: 06/25/22 08:59 Last Admin: 05/27/22 08:19 Dose: 250 mg Docusate Sodium (Docusate Sodium 100 Mg Cap) 100 mg PO BID TASH Stop: 06/24/22 20:59 Last Admin: 05/27/22 08:20 Dose: 100 mg Ferrous Sulfate (Ferrous Sulfate 325 Mg Tab) 325 mg PO QAM TASH Stop: 06/25/22 08:59 Last Admin: 05/27/22 08:19 Dose: 325 mg Furosemide (Furosemide 40 Mg Tab) 40 mg PO DAILY TASH Stop: 06/25/22 08:59 Last Admin: 05/27/22 08:19 Dose: 40 mg Guaifenesin/Codeine Phosphate (Guaifenesin/Codeine 200mg/20mg 10ml Udc) 10 ml PO Q6H PRN PRN Reason: cough Stop: 06/24/22 19:53 Last Admin: 05/27/22 11:03 Dose: 10 ml Hydralazine HCl (Hydralazine Hcl 25 Mg Tab) 25 mg PO BID TASH Stop: 06/24/22 20:59 Last Admin: 05/27/22 08:21 Dose: 25 mg Dexamethasone 6 mg/ Syringe 1.5 mls @ 1 mls/min IV Q24H TASH Stop: 06/25/22 08:59 Last Admin: 05/27/22 10:49 Dose: 1 mls/min Remdesivir 100 mg/ Sodium (Chloride) 250 mls @ 250 mls/hr IV Q24H [facility] Stop: 05/30/22 12:59 Last Admin: 05/27/22 11:46 Dose: 250 mls/hr Lactated Ringer's (Lr) 250 mls @ 125 mls/hr IV .Q2H ONE Stop: 05/27/22 13:43 Isosorbide Mononitrate (Isosorbide [place] Extended Rel 30 Mg Tabcr) 30 mg PO QPM TASH Stop: 06/24/22 20:59 Last Admin: 05/26/22 20:54 Dose: 30 mg Levothyroxine Sodium (Levothyroxine Sodium 112 Mcg Tablet) 112 mcg PO DAILYBB [facility] Stop: 06/25/22 06:29 Last Admin: 05/27/22 05:49 Dose: 112 mcg Metoprolol Succinate (Metoprolol Succ 50mg Ext Rel Tab) 100 mg PO BID TASH Stop: 06/24/22 20:59 Last Admin: 05/27/22 08:20 Dose: 100 mg Nitroglycerin (Nitroglycerin Sl 0.4 Mg/Tab Tab) 0.4 mg SL UD PRN PRN Reason: Chest Pain Stop: 06/24/22 19:53 Ondansetron HCl (Ondansetron Inj 2 Mg/Ml 2 Ml Vial) 4 mg IV Q6H PRN PRN Reason: Nausea And Vomiting Stop: 06/25/22 12:13 Last Admin: 05/27/22 11:03 Dose: 4 mg Tamsulosin HCl (Tamsulosin Hcl 0.4 Mg Cap) 0.4 mg PO HS [facility] Stop: 06/24/22 20:59 Last Admin: 05/26/22 20:56 Dose: 0.4 mg Warfarin Sodium (Warfarin Sod 2.5 Mg Tab) 2.5 mg PO DAILY@1600 [facility] Stop: 06/25/22 15:59 Last Admin: 05/26/22 15:46 Dose: 2.5 mg (1) Hypothyroidism Hypothyroidism type: unspecified Qualified Code(s): E03.9 - Hypothyroidism, unspecified
[2022-05-27] MEDS ORDERED: WARFARIN SOD 5 MG TAB PO SCH (16:00)
[2022-05-27] MEDS: WARFARIN SOD 2.5 MG TAB PO SCH (16:24)
[2022-05-27] MEDS: TAMSULOSIN HCL 0.4 MG CAP PO SCH (20:11)
[2022-05-27] MEDS: ISOSORBIDE MONO EXTENDED REL 30 MG TABCR PO SCH (20:11)
[2022-05-28] MEDS ORDERED: COUGH DROP (SUGAR FREE) LOZ 24 LOZ/1 BOX BUCCAL ONE (01:33)
[2022-05-28] MEDS: ALBUT/IPRATROP 3MG/0.5MG NEB 3 ML VIAL NEB PRN (01:56)
[2022-05-28] MEDS: LEVOTHYROXINE SODIUM 112 MCG TABLET PO SCH (05:55)
[2022-05-28 06:15] LABS: Hematocrit (blood only) 22.4 % (40.1-51.0); Hemoglobin 7.2 g/dl (14.0-18.0); Mean Corpuscular Hemoglobin 27.9 pg (25.0-34.0); Mean Corpuscular Hgb Conc 32.1 g/dL (32.0-36.0); Mean Corpuscular Volume 86.8 fL (80.0-100.0); Mean Platelet Volume 11.8 fL (9.4-12.4); Platelet Count 171 K/uL (130-400); RDW Coefficient of Variation 18.4 % (11.5-14.5); RDW Standard Deviation 57.1 fL (36.4-46.3); Red Blood Count 2.58 M/uL (4.63-6.08); White Blood Count 6.33 K/ul (4.8-10.8)
[2022-05-28 06:38] LABS: Albumin Globulin Ratio 0.7 (0.9-2); Albumin Level 2.3 gm/dl (3.4-5.0); BUN Creatinine Ratio 23.1 (10-20); Bilirubin,Total 0.5 mg/dl (0.2-1.0); Calcium 7.3 mg/dl (8.5-10.1); Est GFR (African American) 45.1 ml/min; Est GFR (Non-African American) 38.9 ml/min; Globulin 3.4 gm/dl (2.5-4.0); Magnesium 2.1 mg/dl (1.7-2.4); Phosphorus 3.7 mg/dl (2.5-4.9); Potassium 4.8 mmol/L (3.5-5.1); Total Protein 5.7 gm/dl (6.0-8.3)
[2022-05-28 06:48] LABS: INR 1.9 (0.9-1.1); Prothrombin Time 19.8 Seconds (9.0-12.0)
[2022-05-28] MEDS: AMIODARONE 200 MG TAB PO SCH ×2 (08:46→20:41)
[2022-05-28] MEDS: ASCORBIC ACID 500 MG TAB PO SCH (08:46)
[2022-05-28] MEDS: dexAMETHasone 6 MG in SYRINGE 0 ML IV SCH (08:47)
[2022-05-28] MEDS: METOPROLOL SUCC 50MG EXT REL TAB PO SCH ×2 (08:47→20:42)
[2022-05-28] MEDS: hydrALAZINE HCL 25 MG TAB PO SCH ×2 (08:47→20:42)
[2022-05-28] MEDS: DOCUSATE SODIUM 100 MG CAP PO SCH ×2 (08:47→20:42)
[2022-05-28] MEDS: FERROUS SULFATE 325 MG TAB PO SCH (08:47)
[2022-05-28] MEDS: FUROSEMIDE 40 MG TAB PO SCH (08:47)
[2022-05-28] MEDS: REMDESIVIR 100 MG in SODIUM CHLORIDE 0.9% 230 ML IV SCH (13:17)
[2022-05-28] MEDS ORDERED: LACTATED RINGER'S 500 ML IV ONE (13:46)
--- NOTE | 2022-05-28 13:46 | Hospitalist Progress Note ---
Date of Service May 28, 2022 Assessment & Plan (1) Acute respiratory failure with hypoxemia: Plan: - Recent diagnosis of COVID-19 virus infection on 05/13/2022 and was treated with dexamethasone - Has been noted to be very hypoxic and doctor's office with the saturation of 70s - Repeat COVID test came back positive with increasing infiltrate involving the lungs on chest x-ray - Received a dose of Solu-Medrol in the emergency room - continue on dexamethasone for 10 day course - started on remdesivir for 5 day course - Has been requiring about 6 L of oxygen to maintain saturation - consider tocilizumab if patients oxygen requirements increase to HFNC - does not meet criteria at this time - wean O2 as tolerated (2) Pneumonia due to COVID-19 virus: Plan: - Fully vaccinated - Initial COVID-19 test was positive on of this month and remained positive as of today - Chest x-ray did show increasing opacities - CRP more than 11 and procalcitonin is not elevated - Recently finished a course of antibiotic - Will not give any antibiotic for now - dexamethasone and remdesivir as above - O2 supplementation, wean as tolerated (3) Rectal cancer: Plan: Was diagnosed in 2020 and has been under chemotherapy Last chemo received about 1 month before Recent history of bright red blood per rectum Has not been complaining any rectal pain and there is no bleeding as of now Hemoglobin remained normal at 8.7 as of 05/25/2022 Will monitor CBC NOTED from Recent Admission: Patient was admitted a few weeks ago for rectal bleed in the setting of known colon cancer with biopsies consistent with an infiltrating well differentiated carcinoma. Was transferred to [facility] [place] for care from colorectal service by Dr. Sanchez given complexity of patient with need for continued anticoagulation without interruption and persistent cancer related to GI bleeding. [facility] [place] Colorectal service felt bleeding was attributed primarily to supratherapeutic INR and discharged once bleeding resolved. Per patient's report, colorectal surgery is planning on surgical intervention once he completes the next cycle of chemo. (4) Ventricular tachycardia (paroxysmal): Plan: - rate controlled - continue BB (5) Paroxysmal A-fib: Plan: - rate controlled - continue BB and warfarin (6) Ischemic cardiomyopathy with implantable cardioverter-defibrillator (ICD): Plan: Status post ICD placement No acute chest pain and no palpitation EKG showing paced rhythm with a rate of 64/min - not in acute exacerbation (7) CKD (chronic kidney disease) stage 3, GFR 30-59 ml/min: Plan: Creatinine is minimally high at 1.73 Will advised to drink more fluid and try to avoid any intravenous fluid Monitor PRP - Cr increasing again over last couple of days - will give gentle IVF - if does not improve, will consult renal for further recommendations (8) Sleep apnea: (9) Hypothyroidism: Plan: Continue supplement DVT prophylaxis Continue coumadin Monitor INR CODE STATUS Full Plan Zbigniew Mooney MD Hospital Medicine Admission and Anticipated Discharge Date Admission Date: May 25, 2022 Subjective He is a 61-year-old obese male with significant past medical history of sigmoid/colon cancer, mixed ischemic and nonischemic cardiomyopathy, V. 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 He returned with worsening hypoxia. He was given supplemental oxygen, dexamethasone, and remdesivir. He feels the somewhat better today and breathing is still troublesome but feels better on oxygen, especially when he coughs. He still reports cough but improved wiht cough medicine overnight. Denies chest pain, diarrhea, abdominal pain, dysuria, fever or chills. Review of Systems Review of Systems: All systems reviewed & are unremarkable except as noted in Subjective All systems are reviewed and are unremarkable except as noted below Physical Exam Constitutional: WD/WN, vitals as above (on an oxymask at 7L) + obese; no acute distress Eyes: PERRL, conjunctivae normal, anicteric sclerae ENMT: external ear and nose normal, oropharynx normal Neck: trachea midline, no thyromegaly Respiratory: normal respiratory effort, lungs clear to auscultation Cardiovascular: RRR, no murmur, no edema Gastrointestinal (Abdomen): normal bowel sounds, soft, nontender, no hepatosplenomegaly Musculoskeletal: no cyanosis or clubbing, extremities motor strength 5/5 Skin: no rashes, warm and dry Neurologic: patellar DTR's 2+ bilat, sensation intact and PERRL, EOMI, accommodation nl, no face palsy, no dysarthria Psychiatric: A+Ox3, euthymic affect Results & Data Results & Data ([facility]) Vital Signs (Past 12 Hours) Vital Signs Temp Pulse Resp BP Pulse Ox O2 Del Method O2 Flow Rate 05/28/22 11:42 36.9 C 69 19 103/49 L 97 Nasal Cannula 6 05/28/22 09:50 Oxymask 6 05/28/22 07:56 36.9 C 63 19 102/55 L 96 Oxymask 6 05/28/22 03:00 36.5 C 63 20 130/59 L 93 Oxymask 05/28/22 01:56 20 95 Oxymask 5 Laboratory Results Short CBC 05/28/22 Range/Units 05:26 WBC 6.33 (4.8-10.8) K/ul Hgb 7.2 L (14.0-18.0) g/dl Hct 22.4 L (40.1-51.0) % Plt Count 171 (130-400) K/uL BMP 05/28/22 05:26 Sodium 136 Potassium 4.8 Chloride 100 Carbon Dioxide 32 BUN 42 H Creatinine 1.82 H Glucose 78 Calcium 7.3 L Liver Function 05/28/22 Range/Units 05:26 Total Bilirubin 0.5 (0.2-1.0) mg/dl AST 107 H (13-39) U/L ALT 75 H (7-52) U/L Alkaline Phosphatase 159 H (34-104) U/L Albumin 2.3 L (3.4-5.0) gm/dl Medications Administered Current Inpatient Medications Hydrocodone Bitart/Acetaminophen (Hydrocodone/Acetamophen 5/325mg Tab) 1 tab PO Q6 PRN PRN Reason: Pain Stop: 06/08/22 19:53 Albuterol (Albut/Ipratrop 3mg/0.5mg Neb 3 Ml Vial) 3 ml NEB Q4R PRN; Protocol PRN Reason: Shortness Of Breath Or Wheezing Stop: 06/24/22 22:59 Last Admin: 05/28/22 01:56 Dose: 3 ml Amiodarone HCl (Amiodarone 200 Mg Tab) 300 mg PO Q12 TASH Stop: 06/24/22 20:59 Last Admin: 05/28/22 08:46 Dose: 300 mg Ascorbic Acid (Ascorbic Acid 500 Mg Tab) 250 mg PO QAM TASH Stop: 06/25/22 08:59 Last Admin: 05/28/22 08:46 Dose: 250 mg Docusate Sodium (Docusate Sodium 100 Mg Cap) 100 mg PO BID TASH Stop: 06/24/22 20:59 Last Admin: 05/28/22 08:47 Dose: 100 mg Ferrous Sulfate (Ferrous Sulfate 325 Mg Tab) 325 mg PO QAM TASH Stop: 06/25/22 08:59 Last Admin: 05/28/22 08:47 Dose: 325 mg Furosemide (Furosemide 40 Mg Tab) 40 mg PO DAILY TASH Stop: 06/25/22 08:59 Last Admin: 05/28/22 08:47 Dose: 40 mg Guaifenesin/Codeine Phosphate (Guaifenesin/Codeine 200mg/20mg 10ml Udc) 10 ml PO Q6H PRN PRN Reason: cough Stop: 06/24/22 19:53 Last Admin: 05/28/22 00:30 Dose: 10 ml Hydralazine HCl (Hydralazine Hcl 25 Mg Tab) 25 mg PO BID TASH Stop: 06/24/22 20:59 Last Admin: 05/28/22 08:47 Dose: 25 mg Dexamethasone 6 mg/ Syringe 1.5 mls @ 1 mls/min IV Q24H TASH Stop: 06/25/22 08:59 Last Admin: 05/28/22 08:47 Dose: 1 mls/min Remdesivir 100 mg/ Sodium (Chloride) 250 mls @ 250 mls/hr IV Q24H TASH Stop: 05/30/22 12:59 Last Admin: 05/28/22 13:17 Dose: 250 mls/hr Isosorbide Mononitrate (Isosorbide [place] Extended Rel 30 Mg Tabcr) 30 mg PO QPM TASH Stop: 06/24/22 20:59 Last Admin: 05/27/22 20:11 Dose: 30 mg Levothyroxine Sodium (Levothyroxine Sodium 112 Mcg Tablet) 112 mcg PO DAILYBB TASH Stop: 06/25/22 06:29 Last Admin: 05/28/22 05:55 Dose: 112 mcg Metoprolol Succinate (Metoprolol Succ 50mg Ext Rel Tab) 100 mg PO BID TASH Stop: 06/24/22 20:59 Last Admin: 05/28/22 08:47 Dose: 100 mg Nitroglycerin (Nitroglycerin Sl 0.4 Mg/Tab Tab) 0.4 mg SL UD PRN PRN Reason: Chest Pain Stop: 06/24/22 19:53 Ondansetron HCl (Ondansetron Inj 2 Mg/Ml 2 Ml Vial) 4 mg IV Q6H PRN PRN Reason: Nausea And Vomiting Stop: 06/25/22 12:13 Last Admin: 05/27/22 11:03 Dose: 4 mg Tamsulosin HCl (Tamsulosin Hcl 0.4 Mg Cap) 0.4 mg PO HS TASH Stop: 06/24/22 20:59 Last Admin: 05/27/22 20:11 Dose: 0.4 mg Warfarin Sodium (Warfarin Sod 2.5 Mg Tab) 2.5 mg PO DAILY@1600 [facility] Stop: 06/25/22 15:59 Last Admin: 05/27/22 16:24 Dose: 2.5 mg (1) Hypothyroidism Hypothyroidism type: unspecified Qualified Code(s): E03.9 - Hypothyroidism, unspecified
--- NOTE | 2022-05-28 15:43 | Pulmonary Consultation ---
Date of Consultation May 28, 2022 Assessment & Plan (1) Acute hypoxemic respiratory failure: (2) Pneumonia due to COVID-19 virus: (3) Sleep apnea: Sleep apnea type: obstructive Qualified Code(s): G47.33 - Obstructive sleep apnea (adult) (pediatric) Plan CT chest 05/25/2022 personally reviewed: Patchy opacities appreciated bilaterally upper and lower lobes Cardiomegaly No mediastinal lymphadenopathy 2D echo 10/21/2021: EF 25-30%, grade 1 diastolic dysfunction -- AcuteHypoxicrespiratory failure Likely secondary to COVID-19 ammonia It seems that patient is developing fibrotic component to it looking at the CAT scan finding Patient was initially diagnosed on 05/13/2022 I think patient is too far from the diagnosis to have any benefit from remdesivir CRP 11.21 BNP 169 Procalcitonin 0.56 --MARIANNA Continue with CPAP --History of rectal cancer On chemotherapy --Hx of V. tach On amiodarone Plan: I do not think there is any benefit of patient getting remdesivir, would recommend to discontinue it especially given the elevated LFTs. Patient has already been treated with dexamethasone in the past as well. CRP was 11.21. Patient will not meet the criteria for Tocilizumab given that he has been admitted to the hospital for more than 72 hours, patient is also high risk for gastrointestinal perforation. Continue with supportive care management. Try to give the patient negative balance Incentive spirometry will be beneficial along with flutter valve Guaifenesin [id number] Case was discussed with Dr Mooney Please note the above document was generated using voice recognition software. It may contain grammatical, syntax or spelling errors.Any formal questions or concerns about the content, text or information contained within the body of th is dictation should be directly addressed to the provider for clarification. History of Present Illness Attending Physician: Zbigniew Mooney MD History of Present Illness 62-year-old male presented to the hospital with complaints of shortness of breath and weakness Past medical history: Nonischemic cardiomyopathy, V. tach s/p ICD placement, left ventricular apical thrombus on Coumadin, paroxysmal A. fib, CKD stage III, hypothyroidism Pulmonary consulted because of hypoxia At the time of examination patient was saturating 97% on 6 L oxygen I was able to gradually titrate down to 3 L and he was still saturating 94% while examining the patient. Patient denied any headache, no nausea, no vomiting. Does complain of cough and chest congestion. Denies any hemoptysis. No dysuria, diarrhea Fair appetite. He does have CPAP but he has not been using CPAP while in the hospital Encouraged to continue with CPAP even at the hospital Social history: Lifetime non-smoker Allergies Allergy/AdvReac Type Severity Reaction Status Date / Time phytonadione (vitamin K1) AdvReac Severe Chest Pain Verified 05/15/22 08:51 Home Medications Medication Instructions Recorded Confirmed Type amiodarone 200 mg tablet 300 mg PO Q12 09/07/19 05/13/22 History hydrocodone 5 mg-acetaminophen 325 1 tab PO Q6 PRN Pain 09/07/19 05/13/22 History mg tablet levothyroxine 112 mcg tablet 112 mcg PO DAILYBB 01/11/20 05/13/22 History nitroglycerin 0.4 mg sublingual 0.4 mg sublingual UD PRN Chest Pain 08/13/20 05/13/22 History tablet (Nitrostat) isosorbide mononitrate 30 mg 30 mg PO QPM 12/25/20 05/13/22 History tablet,extended release 24 hr metoprolol succinate 100 mg 100 mg PO BID 10/20/21 05/13/22 History tablet,extended release 24 hr ferrous sulfate 325 mg (65 mg 325 mg PO DAILY #30 tabs 10/21/21 05/13/22 Rx iron) tablet,delayed release iron,carbonyl 65 mg-vitamin C 125 1 tab PO DAILY 11/14/21 05/13/22 History mg tablet,delayed release (Vitron-C) ondansetron HCl 8 mg tablet 8 mg PO Q8H PRN Pain 12/04/21 05/13/22 History tamsulosin 0.4 mg capsule (Flomax) 0.4 mg PO HS #14 caps 12/20/21 05/13/22 Rx hydralazine 25 mg tablet 25 mg PO AMHS 04/27/22 05/13/22 History capecitabine 500 mg tablet 500 mg PO DIRECTED 05/13/22 05/13/22 History amoxicillin 875 mg tablet 875 mg PO BID #10 tabs 05/19/22 Rx codeine 10 mg-guaifenesin 100 mg/5 10 ml PO Q6H PRN cough #120 mL 05/19/22 Rx mL oral liquid docusate sodium 100 mg capsule 100 mg PO BID #60 caps 05/19/22 Rx doxycycline hyclate 100 mg capsule 100 mg PO BID #10 caps 05/19/22 Rx furosemide 20 mg tablet 40 mg PO DAILY #60 tabs 05/19/22 Rx warfarin 5 mg tablet 2.5 mg PO DAILY #30 tabs 05/19/22 05/13/22 Rx Patient History Medical History Afib Maintained on low dose Amiodarone CAD (coronary artery disease) Non-obstructive per 2012 cath Cardiomyopathy Mixed ischemic and nonischemic CM - EF <20%- complicated by VT. ICD placed 2013 No VT episodes since 10/2020 per cardio records Current EF 20-25% F/U RADHA GALLO CHF (congestive heart failure) CHF (congestive heart failure) hx/no recent issues Chronic back pain CKD (chronic kidney disease) stage 3, GFR 30-59 ml/min Depression Elevated LFTs Gout History of kidney stones History of ventricular tachycardia Hypertension Hypothyroidism LBBB (left bundle branch block) Incomplete per records Left ventricular aneurysm Dx'ed around 2011- on Coumadin- cardio monitoring Moderate in size and noted to apical and inferior area. Hx of LV apical thrombus Myocardial Infarction 15+ years ago- medically managed On anticoagulant therapy WARFARIN Paroxysmal A-fib Pneumonia Pneumonia HX-2000 Presence of combination internal cardiac defibrillator (ICD) and pacemaker Implanted 2013 (follows with cardiology/Dr. Jaffe/RADHA GALLO) Sleep apnea CPAP SOB (shortness of breath) on exertion ON OCC Surgical History H/O arthroscopic knee surgery multiple on bilateral knees H/O neck surgery History of cardiac cath 2011= NO STENTS History of colonoscopy (~09/15/21) History of cystoscopy History of esophagogastroduodenoscopy (EGD) History of implantable cardioverter-defibrillator (ICD) placement History of laminectomy L4-L5 History of lithotripsy History of lumbar surgery 09/17/19 Grade 1 view Mac 3, magnet placed on L chest wall during procedure History of tonsillectomy Status post uvulopalatopharyngoplasty Family History Father , 54yo Lung cancer Mother , 85yo Alzheimer disease Brother No problems noted. Brother No problems noted. Sister No problems noted. Daughter No problems noted. Daughter No problems noted. 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 Required: No Beliefs That Will Affect Care: None marital status: Current Living Situation: Significant Other Current Living Situation Comment: dtr lives next door current occupational status: disabled Other Information That Helps Us Care for You: No Feels Safe at Home: Yes Safety Concerns: Feels Safe At This Time caffeine: No during the past year weight has: decreased > 10 lbs Assistive Devices: Scooter/Electric Scooter Review of Systems Review of Systems: All systems reviewed & are unremarkable except as noted in HPI & below Physical Exam Physical Exam: Constitutional: No acute distress HEENT: EOMI, PERRLA Respiratory system: Decreased air entry bilaterally, no wheeze, no rhonchi, positive crackles bilaterally CVS: S1-S2 positive Abdomen: Soft, nontender, nondistended, positive bowel sounds x4, obese Extremities: +2 pulses bilaterally radialis/ dorsalis pedis, no cyanosis, no edema Neuro: Awake alert oriented x3 Psych: Normal mood and affect G/U: No Bryant Skin: no rashes, warm and dry Lymphatic: no cervical or axillary lymphadenopathy Results & Data Results & Data ([facility]) Vital Signs (Past 12 Hours) Vital Signs Temp Pulse Resp BP Pulse Ox O2 Del Method O2 Flow Rate 05/28/22 11:42 36.9 C 69 19 103/49 L 97 Nasal Cannula 6 05/28/22 09:50 Oxymask 6 05/28/22 07:56 36.9 C 63 19 102/55 L 96 Oxymask 6 Laboratory Results 05/28/22 05:26 05/28/22 05:26 PG Care Time/CCT Total # of Minutes Spent Total Time Spent with Patient: Total time spent is greater than 50% in coordination of care (as documented) at patient's floor/unit and/or counseling patient: Coding Level of Care Code 51764 Initial Inpt Care Lvl 3 Diagnoses Acute hypoxemic respiratory failure J96.01 Pneumonia due to COVID-19 virus U07.1; J12.82 Sleep apnea G47.33 Sleep apnea type: obstructive
[2022-05-28] MEDS ORDERED: FUROSEMIDE 40 MG/4 ML VIAL IV ONE (16:24)
[2022-05-28] MEDS: WARFARIN SOD 2.5 MG TAB PO SCH (17:00)
[2022-05-28] MEDS: ISOSORBIDE MONO EXTENDED REL 30 MG TABCR PO SCH (20:41)
[2022-05-28] MEDS: TAMSULOSIN HCL 0.4 MG CAP PO SCH (20:41)
[2022-05-28] MEDS: guaiFENesin SUGAR FREE 100 MG/5 ML UDC PO SCH (21:12)
[2022-05-29] MEDS: guaiFENesin SUGAR FREE 100 MG/5 ML UDC PO SCH ×3 (05:52→21:18)
[2022-05-29] MEDS: LEVOTHYROXINE SODIUM 112 MCG TABLET PO SCH (05:52)
[2022-05-29 07:49] LABS: Albumin Globulin Ratio 0.7 (0.9-2); Albumin Level 2.3 gm/dl (3.4-5.0); BUN Creatinine Ratio 23.2 (10-20); Bilirubin,Total 0.6 mg/dl (0.2-1.0); Calcium 7.5 mg/dl (8.5-10.1); Creatinine Clr Calc Pharmacy 54.6 ml/min; Est GFR (African American) 42.8 ml/min; Globulin 3.5 gm/dl (2.5-4.0); Magnesium 2.1 mg/dl (1.7-2.4); Phosphorus 3.6 mg/dl (2.5-4.9); Potassium 4.4 mmol/L (3.5-5.1); Total Protein 5.8 gm/dl (6.0-8.3)
[2022-05-29 07:53] LABS: Prothrombin Time 20.2 Seconds (9.0-12.0)
[2022-05-29] MEDS: dexAMETHasone 6 MG in SYRINGE 0 ML IV SCH (08:23)
[2022-05-29] MEDS: FERROUS SULFATE 325 MG TAB PO SCH (08:23)
[2022-05-29] MEDS: hydrALAZINE HCL 25 MG TAB PO SCH ×2 (08:23→20:11)
[2022-05-29] MEDS: ASCORBIC ACID 500 MG TAB PO SCH (08:24)
[2022-05-29] MEDS: FUROSEMIDE 40 MG TAB PO SCH (08:25)
[2022-05-29] MEDS: AMIODARONE 200 MG TAB PO SCH ×2 (08:25→20:10)
[2022-05-29] MEDS: DOCUSATE SODIUM 100 MG CAP PO SCH ×2 (08:25→20:11)
[2022-05-29] MEDS: METOPROLOL SUCC 50MG EXT REL TAB PO SCH ×2 (08:36→20:10)
[2022-05-29] MEDS: ONDANSETRON INJ 2 MG/ML 2 ML VIAL IV PRN (08:37)
--- NOTE | 2022-05-29 10:06 | Pulmonology Progress Note ---
Date of Service May 29, 2022 Assessment & Plan (1) Acute hypoxemic respiratory failure: (2) Pneumonia due to COVID-19 virus: (3) Sleep apnea: Sleep apnea type: obstructive Qualified Code(s): G47.33 - Obstructive sleep apnea (adult) (pediatric) Plan CT chest 05/25/2022 personally reviewed: Patchy opacities appreciated bilaterally upper and lower lobes Cardiomegaly No mediastinal lymphadenopathy 2D echo 10/21/2021: EF 25-30%, grade 1 diastolic dysfunction -- AcuteHypoxicrespiratory failure Likely secondary to COVID-19 ammonia It seems that patient is developing fibrotic component to it looking at the CAT scan finding Patient was initially diagnosed on 05/13/2022 I think patient is too far from the diagnosis to have any benefit from remdesivir CRP 11.21 BNP 169 Procalcitonin 0.56 --MARIANNA Continue with CPAP --History of rectal cancer On chemotherapy --Hx of V. tach On amiodarone Plan: Continue with guaifenesin and flutter valve Incentive spirometry Recommend CPAP to be used nightly and as needed shortness of breath Repeat CAT scan in approximately 3 months. No further recommendation from pulmonary perspective. Will sign off. Please call directly with any questions Please note the above document was generated using voice recognition software. It may contain grammatical, syntax or spelling errors.Any formal questions or concerns about the content, text or information contained within the body of this dictation should be directly addressed to the provider for clarification. Admission and Anticipated Discharge Date Admission Date: May 25, 2022 Subjective Patient seen and family bedside. No acute distress. Did complain of nausea in the morning. Has improved. Shortness of breath is improved He is coughing and bringing up phlegm now. No headache, no blurry vision. He still did not use his CPAP overnight. Review of Systems Review of Systems: All systems reviewed & are unremarkable except as noted in Subjective Physical Exam Physical Exam: Constitutional: No acute distress HEENT: EOMI, PERRLA Respiratory system: Decreased air entry bilaterally, no wheeze, no rhonchi, positive crackles bilaterally CVS: S1-S2 positive Abdomen: Soft, nontender, nondistended, positive bowel sounds x4, obese Extremities: +2 pulses bilaterally radialis/ dorsalis pedis, no cyanosis, no edema Neuro: Awake alert oriented x3 Psych: Normal mood and affect G/U: No Bryant Skin: no rashes, warm and dry Lymphatic: no cervical or axillary lymphadenopathy Results & Data Results & Data ([facility]) Vital Signs (Past 12 Hours) Vital Signs Temp Pulse Pulse Resp BP Pulse Ox O2 Del Method 05/29/22 08:00 Nasal Cannula 05/29/22 08:36 102/41 L 05/29/22 08:15 37.0 C 60 20 97/53 L 95 Nasal Cannula 05/29/22 07:37 60 05/29/22 03:30 36.9 C 69 20 121/60 99 Oxymask 05/28/22 23:43 61 05/28/22 23:27 36.9 C 60 18 156/82 H 96 O2 Flow Rate 05/29/22 08:00 3 05/29/22 08:36 05/29/22 08:15 3 05/29/22 07:37 05/29/22 03:30 05/28/22 23:43 05/28/22 23:27 Laboratory Results 05/28/22 05:26 05/29/22 06:57 PG Care Time/CCT Total # of Minutes Spent Total Time Spent with Patient: Total time spent is greater than 50% in coordination of care (as documented) at patient's floor/unit and/or counseling patient: Coding Level of Care Code 01459 Subseq Hosp Care Lvl 2 Diagnoses Acute hypoxemic respiratory failure J96.01 Pneumonia due to COVID-19 virus U07.1; J12.82 Sleep apnea G47.33 Sleep apnea type: obstructive
--- NOTE | 2022-05-29 10:07 | Hospitalist Progress Note ---
Date of Service May 29, 2022 Assessment & Plan (1) Acute respiratory failure with hypoxemia: Plan: - Recent diagnosis of COVID-19 virus infection on 05/13/2022 and was treated with dexamethasone - Has been noted to be very hypoxic and doctor's office with the saturation of 70s - Repeat COVID test came back positive with increasing infiltrate involving the lungs on chest x-ray - Received a dose of Solu-Medrol in the emergency room - CT with inflammation/infectious process with possible underlying fibrosis - continue on dexamethasone for 10 day course - changed to 5 day course per pulm as they think this is mostly fibrosis and will take time - discontinued remdesivir per pulm as he is too far out for it to be effective - was on 3L NC at 95% this morning 05/29/2022 - pulmonary consult to evaluate underlying fibrosis - likely cause of ongoing hypoxia with some degree of COVID exacerbating this - reduced course as above, supporive care for now - wean O2 as tolerated (2) Pneumonia due to COVID-19 virus: Plan: - Fully vaccinated - Initial COVID-19 test was positive on of this month and remained positive as of today - Chest x-ray did show increasing opacities - CRP more than 11 and procalcitonin is not elevated - Recently finished a course of antibiotic - Will not give any antibiotic for now - dexamethasone and remdesivir as above - O2 supplementation, wean as tolerated (3) Rectal cancer: Plan: Was diagnosed in 2020 and has been under chemotherapy Last chemo received about 1 month before Recent history of bright red blood per rectum Has not been complaining any rectal pain and there is no bleeding as of now Hemoglobin remained normal at 8.7 as of 05/25/2022 Will monitor CBC NOTED from Recent Admission: Patient was admitted a few weeks ago for rectal bleed in the setting of known colon cancer with biopsies consistent with an infiltrating well differentiated carcinoma. Was transferred to [facility] for care from colorectal service by Dr. Sanchez given complexity of patient with need for continued anticoagulation without interruption and persistent cancer related to GI bleeding. [facility] Colorectal service felt bleeding was attributed primarily to supratherapeutic INR and discharged once bleeding resolved. Per patient's report, colorectal surgery is planning on surgical intervention once he completes the next cycle of chemo. (4) Ventricular tachycardia (paroxysmal): Plan: - rate controlled - continue BB (5) Paroxysmal A-fib: Plan: - rate controlled - continue BB and warfarin (6) Ischemic cardiomyopathy with implantable cardioverter-defibrillator (ICD): Plan: Status post ICD placement - EF 20-25% 10/2021 No acute chest pain and no palpitation EKG showing paced rhythm with a rate of 64/min - not in acute exacerbation - holding lasix due to kidney injury - will monitor Cr and restart as tolerated (7) CKD (chronic kidney disease) stage 3, GFR 30-59 ml/min: Plan: Creatinine is minimally high at 1.73 Will advised to drink more fluid and try to avoid any intravenous fluid Monitor PRP - Cr slowly trending up - will hold lasix for now - renal consult (8) Sleep apnea: (9) Hypothyroidism: Plan: Continue supplement DVT prophylaxis Continue coumadin Monitor INR CODE STATUS Full Plan Zbigniew Mooney MD Hospital Medicine Admission and Anticipated Discharge Date Admission Date: May 25, 2022 Subjective He is a 61-year-old obese male with significant past medical history of sigm oid/colon cancer, mixed ischemic and nonischemic cardiomyopathy, V. 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 He returned with worsening hypoxia. He was given supplemental oxygen, dexamethasone, and remdesivir. He feels the somewhat better today and breathing is still troublesome but feels better on oxygen, especially when he coughs. He still reports cough but improved wiht cough medicine overnight. Denies chest pain, diarrhea, abdominal pain, dysuria, fever or chills. Review of Systems Review of Systems: All systems reviewed & are unremarkable except as noted in Subjective All systems are reviewed and are unremarkable except as noted below Physical Exam Constitutional: WD/WN, vitals as above (on an oxymask at 7L) + obese; no acute distress Eyes: PERRL, conjunctivae normal, anicteric sclerae ENMT: external ear and nose normal, oropharynx normal Neck: trachea midline, no thyromegaly Respiratory: normal respiratory effort, lungs clear to auscultation Cardiovascular: RRR, no murmur, no edema Gastrointestinal (Abdomen): normal bowel sounds, soft, nontender, no hepatosplenomegaly Musculoskeletal: no cyanosis or clubbing, extremities motor strength 5/5 Skin: no rashes, warm and dry Neurologic: patellar DTR's 2+ bilat, sensation intact and PERRL, EOMI, accommodation nl, no face palsy, no dysarthria Psychiatric: A+Ox3, euthymic affect Results & Data Results & Data ([facility]) Vital Signs (Past 12 Hours) Vital Signs Temp Pulse Pulse Resp BP Pulse Ox O2 Del Method 05/29/22 08:00 Nasal Cannula 05/29/22 08:36 102/41 L 05/29/22 08:15 37.0 C 60 20 97/53 L 95 Nasal Cannula 05/29/22 07:37 60 05/29/22 03:30 36.9 C 69 20 121/60 99 Oxymask 05/28/22 23:43 61 05/28/22 23:27 36.9 C 60 18 156/82 H 96 O2 Flow Rate 05/29/22 08:00 3 05/29/22 08:36 05/29/22 08:15 3 05/29/22 07:37 05/29/22 03:30 05/28/22 23:43 05/28/22 23:27 Laboratory Results [facility] 05/29/22 06:57 Sodium 135 L Potassium 4.4 Chloride 99 Carbon Dioxide 34 H BUN 44 H Creatinine 1.90 H Glucose 80 Calcium 7.5 L Liver Function 05/29/22 Range/Units 06:57 Total Bilirubin 0.6 (0.2-1.0) mg/dl AST 134 H (13-39) U/L ALT 86 H (7-52) U/L Alkaline Phosphatase 176 H (34-104) U/L Albumin 2.3 L (3.4-5.0) gm/dl Medications Administered Current Inpatient Medications Hydrocodone Bitart/Acetaminophen (Hydrocodone/Acetamophen 5/325mg Tab) 1 tab PO Q6 PRN PRN Reason: Pain Stop: 06/08/22 19:53 Albuterol (Albut/Ipratrop 3mg/0.5mg Neb 3 Ml Vial) 3 ml NEB Q4R PRN; Protocol PRN Reason: Shortness Of Breath Or Wheezing Stop: 06/24/22 22:59 Last Admin: 05/28/22 01:56 Dose: 3 ml Amiodarone HCl (Amiodarone 200 Mg Tab) 300 mg PO Q12 [facility] Stop: 06/24/22 20:59 Last Admin: 05/29/22 08:25 Dose: 300 mg Ascorbic Acid (Ascorbic Acid 500 Mg Tab) 250 mg PO QAM [facility] Stop: 06/25/22 08:59 Last Admin: 05/29/22 08:24 Dose: 250 mg Docusate Sodium (Docusate Sodium 100 Mg Cap) 100 mg PO BID [facility] Stop: 06/24/22 20:59 Last Admin: 05/29/22 08:25 Dose: 100 mg Ferrous Sulfate (Ferrous Sulfate 325 Mg Tab) 325 mg PO QAM [facility] Stop: 06/25/22 08:59 Last Admin: 05/29/22 08:23 Dose: 325 mg Furosemide (Furosemide 20 Mg Tab) 20 mg PO BID [facility] Stop: 06/28/22 20:59 Guaifenesin (Guaifenesin Sugar Free 100 Mg/5 Ml Udc) 100 mg PO Q8 [facility] Stop: 06/27/22 21:59 Last Admin: 05/29/22 05:52 Dose: 100 mg Guaifenesin/Codeine Phosphate (Guaifenesin/Codeine 200mg/20mg 10ml Udc) 10 ml PO Q6H PRN PRN Reason: cough Stop: 06/24/22 19:53 Last Admin: 05/28/22 00:30 Dose: 10 ml Hydralazine HCl (Hydralazine Hcl 25 Mg Tab) 25 mg PO BID TASH Stop: 06/24/22 20:59 Last Admin: 05/29/22 08:23 Dose: 25 mg Dexamethasone 6 mg/ Syringe 1.5 mls @ 1 mls/min IV Q24H [facility]ASH Stop: 05/30/22 08:59 Last Admin: 05/29/22 08:23 Dose: 1 mls/min Isosorbide Mononitrate (Isosorbide [place] Extended Rel 30 Mg Tabcr) 30 mg PO QPM [facility] Stop: 06/24/22 20:59 Last Admin: 05/28/22 20:41 Dose: 30 mg Levothyroxine Sodium (Levothyroxine Sodium 112 Mcg Tablet) 112 mcg PO DAILYBB [facility] Stop: 06/25/22 06:29 Last Admin: 05/29/22 05:52 Dose: 112 mcg Metoprolol Succinate (Metoprolol Succ 50mg Ext Rel Tab) 100 mg PO BID [facility] Stop: 06/24/22 20:59 Last Admin: 05/29/22 08:36 Dose: 100 mg Nitroglycerin (Nitroglycerin Sl 0.4 Mg/Tab Tab) 0.4 mg SL UD PRN PRN Reason: Chest Pain Stop: 06/24/22 19:53 Ondansetron HCl (Ondansetron Inj 2 Mg/Ml 2 Ml Vial) 4 mg IV Q6H PRN PRN Reason: Nausea And Vomiting Stop: 06/25/22 12:13 Last Admin: 05/29/22 08:37 Dose: 4 mg Tamsulosin HCl (Tamsulosin Hcl 0.4 Mg Cap) 0.4 mg PO HS [facility] Stop: 06/24/22 20:59 Last Admin: 05/28/22 20:41 Dose: 0.4 mg Warfarin Sodium (Warfarin Sod 2.5 Mg Tab) 2.5 mg PO DAILY@1600 [facility] Stop: 06/25/22 15:59 Last Admin: 05/28/22 17:00 Dose: 2.5 mg (1) Hypothyroidism Hypothyroidism type: unspecified Qualified Code(s): E03.9 - Hypothyroidism, unspecified
[2022-05-29] MEDS: WARFARIN SOD 2.5 MG TAB PO SCH (15:00)
[2022-05-29] MEDS ORDERED: FUROSEMIDE 20 MG TAB PO SCH (17:00)
--- NOTE | 2022-05-29 17:07 | Nephrology Consultation ---
Date of Consultation May 29, 2022 Assessment & Plan (1) Worsening renal function: baseline creatinine in clinic/[facility] system is 1.5-1.6, or ckd 3A. difficult to tell what his more recent baseline is as he has been inpatient now for nearly a month w/ multiple admissions. chemistries and volume status ok. chemistries ok; does not so far meet SAE criteria but will monitor. -no indication for repeat renal imaging at this time -daily bmp -hold lasix starting tomorrow > use prn dyspnea only -ordered UA for charles understanding; pt w/ hx of chornic dipstick proteinuria History of Present Illness Reason for Consultation: worsening creatinine Requesting Physician: Dr Mooney Attending Physician: Zbigniew Mooney MD History of Present Illness 61 y/o M whom I'm asked to see for worsening creatinine was admitted here for C19 PNA on 05/25 w/ creatinine in mid ones where it stayed until 05/27. From 05/27-today, creat more in 1.8-1.9 range. PMH includes MARIANNA, colon CA on chemotherapy, ischemic cardiomyopathy s/p ICD, a fib and atrial thrombus on warfarin, CKD, hypothyroid, obesity. Colon CA dx'd 10/2021 and s/p XRT in January followed by neoadjuvant CTX. Surgery is planned fo r after completion of CTX. He was admitted here 4 day te April for BRBPR, and again in May (05/13-05/19) for rectal bleeding as well. On admission 05/25, he was taking lasix 20 mg po daily. at prior admissions creatinine stayed in mid ones. The pt had a dose of lasix IV 40 mg on 05/28 in addition to standing 40 mg po daily doses. He has some decreased po intake today and last evening d/t N. no emesis; no diarrhea / constipation. tells me "today's not a good day." does endorse darker yellow urine; no worsening dyspnea or cough. no edema. Allergies Allergy/AdvReac Type Severity Reaction Status Date / Time phytonadione (vitamin K1) AdvReac Severe Chest Pain Verified 05/15/22 08:51 Home Medications Medication Instructions Recorded Confirmed Type amiodarone 200 mg tablet 300 mg PO Q12 09/07/19 05/13/22 History hydrocodone 5 mg-acetaminophen 325 1 tab PO Q6 PRN Pain 09/07/19 05/13/22 History mg tablet levothyroxine 112 mcg tablet 112 mcg PO DAILYBB 01/11/20 05/13/22 History nitroglycerin 0.4 mg sublingual 0.4 mg sublingual UD PRN Chest Pain 08/13/20 05/13/22 History tablet (Nitrostat) isosorbide mononitrate 30 mg 30 mg PO QPM 12/25/20 05/13/22 History tablet,extended release 24 hr metoprolol succinate 100 mg 100 mg PO BID 10/20/21 05/13/22 History tablet,extended release 24 hr ferrous sulfate 325 mg (65 mg 325 mg PO DAILY #30 tabs 10/21/21 05/13/22 Rx iron) tablet,delayed release iron,carbonyl 65 mg-vitamin C 125 1 tab PO DAILY 11/14/21 05/13/22 History mg tablet,delayed release (Vitron-C) ondansetron HCl 8 mg tablet 8 mg PO Q8H PRN Pain 12/04/21 05/13/22 History tamsulosin 0.4 mg capsule (Flomax) 0.4 mg PO HS #14 caps 12/20/21 05/13/22 Rx hydralazine 25 mg tablet 25 mg PO AMHS 04/27/22 05/13/22 History capecitabine 500 mg tablet 500 mg PO DIRECTED 05/13/22 05/13/22 History amoxicillin 875 mg tablet 875 mg PO BID #10 tabs 05/19/22 Rx codeine 10 mg-guaifenesin 100 mg/5 10 ml PO Q6H PRN cough #120 mL 05/19/22 Rx mL oral liquid docusate sodium 100 mg capsule 100 mg PO BID #60 caps 05/19/22 Rx doxycycline hyclate 100 mg capsule 100 mg PO BID #10 caps 05/19/22 Rx furosemide 20 mg tablet 40 mg PO DAILY #60 tabs 05/19/22 Rx warfarin 5 mg tablet 2.5 mg PO DAILY #30 tabs 05/19/22 05/13/22 Rx Patient History Medical History Afib Maintained on low dose Amiodarone CAD (coronary artery disease) Non-obstructive per 2012 cath Cardiomyopathy Mixed ischemic and nonischemic CM - EF <20%- complicated by VT. ICD placed 2013 No VT episodes since 10/2020 per cardio records Current EF 20-25% F/U RADHA GALLO CHF (congestive heart failure) CHF (congestive heart failure) hx/no recent issues Chronic back pain CKD (chronic kidney disease) stage 3, GFR 30-59 ml/min Depression Elevated LFTs Gout History of kidney stones History of ventricular tachycardia Hypertension Hypothyroidism LBBB (left bundle branch block) Incomplete per records Left ventricular aneurysm Dx'ed around 2011- on Coumadin- cardio monitoring Moderate in size and noted to apical and inferior area. Hx of LV apical thrombus Myocardial Infarction 15+ years ago- medically managed On anticoagulant therapy WARFARIN Paroxysmal A-fib Pneumonia Pneumonia HX-2000 Presence of combination internal cardiac defibrillator (ICD) and pacemaker Implanted 2013 (follows with cardiology/Dr. Jaffe/RADHA GALLO) Sleep apnea CPAP SOB (shortness of breath) on exertion ON OCC Surgical History H/O arthroscopic knee surgery multiple on bilateral knees H/O neck surgery History of cardiac cath 2011= NO STENTS History of colonoscopy (~09/15/21) History of cystoscopy History of esophagogastroduodenoscopy (EGD) History of implantable cardioverter-defibrillator (ICD) placement History of laminectomy L4-L5 History of lithotripsy History of lumbar surgery 09/17/19 Grade 1 view Mac 3, magnet placed on L chest wall during procedure History of tonsillectomy Status post uvulopalatopharyngoplasty Family History Father , 54yo Lung cancer Mother , 85yo Alzheimer disease Brother No problems noted. Brother No problems noted. Sister No problems noted. Daughter No problems noted. Daughter No problems noted. Social History Smoking Status: Never smoker Second Hand Exposure: No; Hx Alcohol Use: No Hx Substance Use: No Preferred Language: Korean Communication Ability: Effective Visual Impairment: Limited Hearing Ability: Normal Emergency Veterinary Assistant Required: No Beliefs That Will Affect Care: None marital status: Current Living Situation: Significant Other Current Living Situation Comment: dtr lives next door current occupational status: disabled Other Information That Helps Us Care for You: No Feels Safe at Home: Yes Safety Concerns: Feels Safe At This Time caffeine: No during the past year weight has: decreased > 10 lbs Assistive Devices: Scooter/Electric Scooter Review of Systems Review of Systems: All systems reviewed & are unremarkable except as noted in HPI & below Physical Exam Constitutional: well developed, well nourished and + obese (on 02NC lying flat); no acute distress Eyes: EOM intact bilaterally ENMT: Ears: no external ear abnormality Nose: no external nose abnormality Mouth: + dry oral mucous membranes Neck: no nuchal rigidity Respiratory: normal respiratory effort; no cough Auscultation: + diminished lung sounds Gastrointestinal (Abdomen): Inspection/Auscultation: normal bowel sounds Percussion/Palpation: abdomen soft; abdomen nontender Musculoskeletal: Extremities: strength 5/5 throughout Skin: no rashes, warm and dry Neurologic: [place], fluent speech, no tremor Psychiatric: Orientation: oriented x 3 Speech: normal rate/rhythm/volume of speech Affect: + flat affect Results & Data ([facility]) Vital Signs (Past 12 Hours) Vital Signs Temp Pulse Pulse Resp BP Pulse Ox O2 Del Method 05/29/22 16:00 37.0 C 62 19 129/66 94 05/29/22 12:00 36.9 C 61 20 118/60 94 Nasal Cannula 05/29/22 08:00 Nasal Cannula 05/29/22 08:36 102/41 L 05/29/22 08:15 37.0 C 60 20 97/53 L 95 Nasal Cannula 05/29/22 07:37 60 O2 Flow Rate 05/29/22 16:00 3.0 05/29/22 12:00 3 05/29/22 08:00 3 05/29/22 08:36 05/29/22 08:15 3 05/29/22 07:37 Diagnostic Findings 05/28/22 05:26 05/29/22 06:57
[2022-05-29] MEDS: TAMSULOSIN HCL 0.4 MG CAP PO SCH (20:10)
[2022-05-29] MEDS: ISOSORBIDE MONO EXTENDED REL 30 MG TABCR PO SCH (20:10)
[2022-05-30] MEDS ORDERED: LORazepam 0.5 MG TAB PO PRN (01:38)
[2022-05-30] MEDS: LEVOTHYROXINE SODIUM 112 MCG TABLET PO SCH (06:01)
[2022-05-30] MEDS: guaiFENesin SUGAR FREE 100 MG/5 ML UDC PO SCH ×3 (06:01→21:39)
[2022-05-30 07:01] LABS: Eosinophils # (auto) 0.04 K/uL (0-0.50); Eosinophils % (auto) 0.7 %; Hematocrit (blood only) 22.5 % (40.1-51.0); Hemoglobin 7.2 g/dl (14.0-18.0); Immature Granulocytes # (auto) 0.03 K/uL (0.00-0.02); Immature Granulocytes % (auto) 0.5 %; Lymphocytes # (auto) 0.34 K/uL (1.2-3.4); Lymphocytes % (auto) 6.1 %; Mean Corpuscular Volume 87.5 fL (80.0-100.0); Mean Platelet Volume 10.9 fL (9.4-12.4); Monocytes # (auto) 0.38 K/uL (0.24-0.82); Monocytes % (auto) 6.8 %; Neutrophils # (auto) 4.78 K/uL (1.4-6.5); Neutrophils % (auto) 85.9 %; Platelet Count 151 K/uL (130-400); RDW Coefficient of Variation 18.2 % (11.5-14.5); RDW Standard Deviation 56.5 fL (36.4-46.3); Red Blood Count 2.57 M/uL (4.63-6.08); White Blood Count 5.57 K/ul (4.8-10.8)
[2022-05-30 07:13] LABS: INR 2.1 (0.9-1.1); Prothrombin Time 21.1 Seconds (9.0-12.0)
[2022-05-30 07:29] LABS: BUN Creatinine Ratio 26.1 (10-20); Calcium 7.5 mg/dl (8.5-10.1); Creatinine Clr Calc Pharmacy 55.5 ml/min; Est GFR (African American) 44.5 ml/min; Est GFR (Non-African American) 38.4 ml/min; Magnesium 2.2 mg/dl (1.7-2.4); Phosphorus 3.9 mg/dl (2.5-4.9); Potassium 4.4 mmol/L (3.5-5.1)
[2022-05-30 07:41] LABS: ALC (manual) 0.17 K/uL (1.2-3.4); ANC (manual) 5.29 K/uL (1.4-6.5); Lymphocytes # (manual) 0.17 K/uL (1.2-3.4); Lymphocytes % (manual) 3 %; Monocytes # (manual) 0.17 K/uL (0.24-0.82); Monocytes % (manual) 3 %; Neutrophils # (manual) 5.29 K/uL (1.4-6.5); Neutrophils % (manual) 95 %; Target Cells 1+; Tear Drop Cells 1+
[2022-05-30] MEDS: ASCORBIC ACID 500 MG TAB PO SCH (08:43)
[2022-05-30] MEDS: hydrALAZINE HCL 25 MG TAB PO SCH (08:43)
[2022-05-30] MEDS: AMIODARONE 200 MG TAB PO SCH ×2 (08:44→21:39)
[2022-05-30] MEDS: METOPROLOL SUCC 50MG EXT REL TAB PO SCH (08:44)
[2022-05-30] MEDS: FERROUS SULFATE 325 MG TAB PO SCH (08:44)
[2022-05-30] MEDS: DOCUSATE SODIUM 100 MG CAP PO SCH ×2 (08:45→21:39)
--- NOTE | 2022-05-30 10:05 | Nephrology Progress Note ---
Date of Service May 30, 2022 Assessment & Plan (1) Worsening renal function: Plan: baseline creatinine in clinic/[facility] system is 1.5-1.6, or ckd 3A. difficult to tell what his more recent baseline is as he has been inpatient now for nearly a month w/ multiple admissions. chemistries and volume status ok. chemistries ok; does not so far meet SAE criteria but will monitor. -no indication for repeat renal imaging at this time -daily bmp -hold lasix as of today > use prn dyspnea only and would give low dose IV not po preferentially -await UA for charles understanding; pt w/ hx of chornic dipstick proteinuria -progressive anemia > doubt volume overload or CKD - related; ?CA related Admission and Anticipated Discharge Date Admission Date: May 25, 2022 Subjective anxious/restless night; ongoing poor appetite but tryint to take po; thnks breathing about the same Review of Systems Review of Systems: All systems reviewed & are unremarkable except as noted in Subjective Physical Exam Constitutional: well developed, well nourished and + obese (on 02NC 4L lying flat); no acute distress Eyes: EOM intact bilaterally ENMT: Ears: no external ear abnormality Nose: no external nose abnormality Mouth: + dry oral mucous membranes Neck: no nuchal rigidity Respiratory: normal respiratory effort; no cough Auscultation: + diminished lung sounds Gastrointestinal (Abdomen): Inspection/Auscultation: normal bowel sounds Percussion/Palpation: abdomen soft; abdomen nontender Musculoskeletal: Extremities: strength 5/5 throughout Skin: no rashes, warm and dry Psychiatric: Orientation: oriented x 3 Speech: normal rate/rhythm/volume of speech Affect: + flat affect Results & Data ([facility]) Vital Signs (Past 12 Hours) Vital Signs Temp Pulse Pulse Resp BP Pulse Ox O2 Del Method 05/30/22 08:30 36.9 C 62 18 128/63 93 Nasal Cannula 05/30/22 07:24 60 05/30/22 04:37 36.8 C 68 20 110/50 L 98 Nasal Cannula 05/29/22 23:29 65 05/29/22 23:03 64 18 124/60 90 Nasal Cannula O2 Flow Rate 05/30/22 08:30 4 05/30/22 07:24 05/30/22 04:37 4.0 05/29/22 23:29 05/29/22 23:03 3 Laboratory Results 05/30/22 06:37 05/30/22 06:37
--- NOTE | 2022-05-30 10:31 | Hospitalist Progress Note ---
Date of Service May 30, 2022 Assessment & Plan (1) Acute respiratory failure with hypoxemia: Plan: - Recent diagnosis of COVID-19 virus infection on 05/13/2022 and was treated with dexamethasone - Has been noted to be very hypoxic and doctor's office with the saturation of 70s - Repeat COVID test came back positive with increasing infiltrate involving the lungs on chest x-ray - Received a dose of Solu-Medrol in the emergency room - CT with inflammation/infectious process with possible underlying fibrosis - continue on dexamethasone for 10 day course - changed to 5 day course per pulm as they think this is mostly fibrosis and will take time - discontinued remdesivir per pulm as he is too far out for it to be effective - was on 3L NC at 95% 05/29/2022 -today (05/30) he is requiring 4LPM and is 95%. Again encouraged to keep his oxygen on continuously. - wean O2 as tolerated (2) Pneumonia due to COVID-19 virus: Plan: - Fully vaccinated - Initial COVID-19 test was positive on of this month and remained positive as of today - Chest x-ray did show increasing opacities - CRP more than 11 and procalcitonin is not elevated - Recently finished a course of antibiotic - Will not give any antibiotic for now - dexamethasone and remdesivir as above - O2 supplementation, wean as tolerated (3) Rectal cancer: Plan: Was diagnosed in 2020 and has been under chemotherapy Last chemo received about 1 month before Recent history of bright red blood per rectum Has not been complaining any rectal pain and there is no bleeding as of now Hemoglobin remained normal at 8.7 as of 05/25/2022 This has dropped to 7/2 today (05/30) and with ongoing symptoms of exertional dyspnea, will give 1 unit of blood now for treatment of symptomatic anemia. Will diurese with Lasix following this and have cleared this with nephrology who wanted to hold lasix at this time. NOTED from Recent Admission: Patient was admitted a few weeks ago for rectal bleed in the setting of known colon cancer with biopsies consistent with an infiltrating well differentiated carcinoma. Was transferred to [facility] for care from colorectal service by Dr. Sanchez given complexity of patient with need for continued anticoagulation without interruption and persistent cancer related to GI bleeding. [facility] Colorectal service felt bleeding was attributed primarily to supratherapeutic INR and discharged once bleeding resolved. Per patient's report, colorectal surgery is planning on surgical intervention once he completes the next cycle of chemo. (4) Acute worsening of stage 3 chronic kidney disease: Plan: Likely related to recent diuretic use. Lasix plan as a changes after blood and then per nephrology. Daily BMP. (5) Ventricular tachycardia (paroxysmal): Plan: - rate controlled - continue BB -pt denies any ICD shocks. (6) Paroxysmal A-fib: Plan: - rate controlled - continue BB and warfarin -monitor daily INR as supratherapeutic higher risk given the interaction with high dose amio and this will promote extra GI bleeding. (7) Ischemic cardiomyopathy with implantable cardioverter-defibrillator (ICD): Plan: Status post ICD placement - EF 20-25% 10/2021 No acute chest pain and no palpitation ?covid pneumonia vs pulmonary edema on imaging and exertional SOB may be an exacerbation of heart failure. Will give blood and continue to monitor for response. Repeat CXR in am. (8) Sleep apnea: Plan: Patient currently not ordered CPAP nightly. When hospitalized previously he was using home unit. We will discuss this with him tomorrow. Ordered CPAP nightly. (9) Hypothyroidism: Plan: Chronic, stable continue supplementation per home regimen. (10) DVT prophylaxis: Plan: Therapeutic INR on warfarin Full Code Dispo-pending resolution of hypoxia and improvement clinically, at least a few days more. Olamide Chaudhary DO [facility] Hospitalist Admission and Anticipated Discharge Date Admission Date: May 25, 2022 Subjective 61-year-old man with history of nonischemic cardiomyopathy and ejection fraction approximately 25% presented as a readmission for acute respiratory failure. He was recently positive for COVID and had also gotten blood during his last admission. He presented with acute worsening hypoxia. During his last admission he completed a course of antibiotics for possible superimposed bacterial pneumonia. He was placed on Lasix twice daily IV and this was held in the setting of a creatinine bump to 1.8 from baseline 1.5. Today he reports that he is winded and somewhat short of breath with exertion. He reports feeling somewhat better since admission but then at certain times he will feel more short of breath. He continues to take his oxygen off at times and was encouraged to keep it on consistently so the nurses can appropriately titrate him. He is not on supplemental oxygen at baseline. He has minimal to no cough that is nonproductive. He denies any other symptoms at this time. Appetite is low with some nausea that was treated with antiemetics yesterday. Review of Systems Review of Systems: All systems reviewed and negative except as indicated above. Physical Exam Physical Exam: CONSTITUTIONAL: obese vitals as above, generally well- appearing, NAD EYES: normal conjunctivae, no scleral icterus, ENT: external ear and nose normal, MMM NECK: trachea midline, RESPIRATORY: CTA throughout all lung bocanegra, no rales or wheezes, normal respiratory effort. CARDIOVASCULAR: regular rate and rhythm, S1 and 2 heard without murmurs, gallops or rubs, no JVD, no peripheral edema, GASTROINTESTINAL: soft, nontender, protuberant, ND, no guarding MUSCULOSKELETAL: strength 5/5 throughout, head is normocephalic and atraumatic SKIN: warm and dry NEUROLOGIC: CN 2-12 grossly intact, no sensory deficit, normal cognition, n ormal speech, no tremor PSYCHIATRIC: alert cooperative and oriented to person, place and time. Euthymic mood, makes good eye contact, language grossly intact, recent and remote memory grossly intact. Results & Data Results & Data ([facility]) Vital Signs (Past 12 Hours) Vital Signs Temp Pulse Pulse Resp BP Pulse Ox O2 Del Method 05/30/22 08:00 Nasal Cannula 05/30/22 08:30 36.9 C 62 18 128/63 93 Nasal Cannula 05/30/22 07:24 60 05/30/22 04:37 36.8 C 68 20 110/50 L 98 Nasal Cannula 05/29/22 23:29 65 05/29/22 23:03 64 18 124/60 90 Nasal Cannula O2 Flow Rate 05/30/22 08:00 4 05/30/22 08:30 4 05/30/22 07:24 05/30/22 04:37 4.0 05/29/22 23:29 05/29/22 23:03 3 Laboratory Results Short CBC 05/30/22 Range/Units 06:37 WBC 5.57 (4.8-10.8) K/ul Hgb 7.2 L (14.0-18.0) g/dl Hct 22.5 L (40.1-51.0) % Plt Count 151 (130-400) K/uL BMP 05/30/22 06:37 Sodium 135 L Potassium 4.4 Chloride 99 Carbon Dioxide 34 H BUN 48 H Creatinine 1.84 H Glucose 82 Calcium 7.5 L Medications Administered Current Inpatient Medications Hydrocodone Bitart/Acetaminophen (Hydrocodone/Acetamophen 5/325mg Tab) 1 tab PO Q6 PRN PRN Reason: Pain Stop: 06/08/22 19:53 Albuterol (Albut/Ipratrop 3mg/0.5mg Neb 3 Ml Vial) 3 ml NEB Q4R PRN; Protocol PRN Reason: Shortness Of Breath Or Wheezing Stop: 06/24/22 22:59 Last Admin: 05/28/22 01:56 Dose: 3 ml Amiodarone HCl (Amiodarone 200 Mg Tab) 300 mg PO Q12 [facility] Stop: 06/24/22 20:59 Last Admin: 05/30/22 08:44 Dose: 300 mg Ascorbic Acid (Ascorbic Acid 500 Mg Tab) 250 mg PO QAM [facility] Stop: 06/25/22 08:59 Last Admin: 05/30/22 08:43 Dose: 250 mg Docusate Sodium (Docusate Sodium 100 Mg Cap) 100 mg PO BID [facility] Stop: 06/24/22 20:59 Last Admin: 05/30/22 08:45 Dose: 100 mg Ferrous Sulfate (Ferrous Sulfate 325 Mg Tab) 325 mg PO QAM [facility] Stop: 06/25/22 08:59 Last Admin: 05/30/22 08:44 Dose: 325 mg Furosemide (Furosemide 20 Mg Tab) 20 mg PO BID17 [facility] Stop: 06/28/22 16:59 Last Admin: 05/29/22 17:50 Dose: 20 mg Guaifenesin (Guaifenesin Sugar Free 100 Mg/5 Ml Udc) 100 mg PO Q8 [facility] Stop: 06/27/22 21:59 Last Admin: 05/30/22 06:01 Dose: 100 mg Guaifenesin/Codeine Phosphate (Guaifenesin/Codeine 200mg/20mg 10ml Udc) 10 ml PO Q6H PRN PRN Reason: cough Stop: 06/24/22 19:53 Last Admin: 05/28/22 00:30 Dose: 10 ml Hydralazine HCl (Hydralazine Hcl 25 Mg Tab) 25 mg PO BID TASH Stop: 06/24/22 20:59 Last Admin: 05/30/22 08:43 Dose: 25 mg Isosorbide Mononitrate (Isosorbide Kenedy Extended Rel 30 Mg Tabcr) 30 mg PO QPM [facility] Stop: 06/24/22 20:59 Last Admin: 05/29/22 20:10 Dose: 30 mg Levothyroxine Sodium (Levothyroxine Sodium 112 Mcg Tablet) 112 mcg PO DAILYBB [facility] Stop: 06/25/22 06:29 Last Admin: 05/30/22 06:01 Dose: 112 mcg Lorazepam (Lorazepam 0.5 Mg Tab) 0.5 mg PO TID PRN PRN Reason: Anxiety Stop: 06/29/22 01:37 Last Admin: 05/30/22 01:58 Dose: 0.5 mg Metoprolol Succinate (Metoprolol Succ 50mg Ext Rel Tab) 100 mg PO BID TASH Stop: 06/24/22 20:59 Last Admin: 05/30/22 08:44 Dose: 100 mg Nitroglycerin (Nitroglycerin Sl 0.4 Mg/Tab Tab) 0.4 mg SL UD PRN PRN Reason: Chest Pain Stop: 06/24/22 19:53 Ondansetron HCl (Ondansetron Inj 2 Mg/Ml 2 Ml Vial) 4 mg IV Q6H PRN PRN Reason: Nausea And Vomiting Stop: 06/25/22 12:13 Last Admin: 05/29/22 08:37 Dose: 4 mg Tamsulosin HCl (Tamsulosin Hcl 0.4 Mg Cap) 0.4 mg PO HS [facility] Stop: 06/24/22 20:59 Last Admin: 05/29/22 20:10 Dose: 0.4 mg Warfarin Sodium (Warfarin Sod 2.5 Mg Tab) 2.5 mg PO DAILY@1600 [facility] Stop: 06/25/22 15:59 Last Admin: 05/29/22 15:00 Dose: 2.5 mg (1) Hypothyroidism Hypothyroidism type: unspecified Qualified Code(s): E03.9 - Hypothyroidism, unspecified
[2022-05-30] MEDS ORDERED: SODIUM CHLORIDE 0.9% 250 ML IV PRN (10:53)
[2022-05-30] MEDS ORDERED: ACETAMINOPHEN 325 MG TAB PO ONE (10:53)
[2022-05-30] MEDS ORDERED: diphenhydrAMINE Capsule 25 MG CAP PO ONE (10:53)
[2022-05-30] MEDS ORDERED: FUROSEMIDE 40 MG/4 ML VIAL IV SCH (11:00)
[2022-05-30] MEDS ORDERED: SODIUM CHLORIDE 0.9% 1000ML 500 ML IV STA (15:37)
[2022-05-30] MEDS: ONDANSETRON INJ 2 MG/ML 2 ML VIAL IV PRN (15:48)
[2022-05-30 15:49] LABS: Eosinophils # (auto) 0.05 K/uL (0-0.50); Eosinophils % (auto) 1.9 %; Hematocrit (blood only) 26.4 % (40.1-51.0); Hemoglobin 8.1 g/dl (14.0-18.0); Immature Granulocytes # (auto) 0.09 K/uL (0.00-0.02); Immature Granulocytes % (auto) 3.5 %; Lymphocytes % (auto) 3.9 %; Mean Corpuscular Hemoglobin 27.5 pg (25.0-34.0); Mean Corpuscular Hgb Conc 30.7 g/dL (32.0-36.0); Mean Corpuscular Volume 89.5 fL (80.0-100.0); Mean Platelet Volume 11.9 fL (9.4-12.4); Monocytes # (auto) 0.03 K/uL (0.24-0.82); Monocytes % (auto) 1.2 %; Neutrophils # (auto) 2.31 K/uL (1.4-6.5); Neutrophils % (auto) 89.5 %; Nucleated RBC # (auto) 0.02 K/uL (0-0); Nucleated RBC % (auto) 0.8 %; Platelet Count 141 K/uL (130-400); RDW Coefficient of Variation 18.4 % (11.5-14.5); RDW Standard Deviation 58.6 fL (36.4-46.3); Red Blood Count 2.95 M/uL (4.63-6.08); White Blood Count 2.58 K/ul (4.8-10.8)
--- NOTE | 2022-05-30 15:54 | XRay Report ---
XR chest 1V portable CLINICAL HISTORY: possible acute transfusion reaction. COMPARISON STUDY: 05/25/2022 TECHNIQUE: 1 view of the chest FINDINGS: Single frontal view of the chest demonstrates the heart size to again be enlarged with ICD pacer in p lace. Compared to previous examination, there has been interval development of diffuse interstitial e madi superimposed over patchy alveolar opacities. These findings can be seen with interval pulmonary edema characteristic of an acute transfusion reaction. There is also evidence for left pleural effusi on and left basilar atelectasis. There is no evidence for vascular congestion. There is no acute osse ous pathology. IMPRESSION: 1. Interval development of diffuse interstitial edema superimposed over patchy alveolar opacities. Th whitney findings are suspicious for interval pulmonary edema characteristic of an acute transfusion react ion. ACT 112: Negative or not required by law. Electronically signed by: Satish Sunshine M.D. 05/30/2022 3:53 PM
[2022-05-30] MEDS ORDERED: MoRPHine SULFATE 2 MG/ML CARP IV STA (16:01)
[2022-05-30 16:04] LABS: Fibrinogen 391 mg/dl (184-400); Partial Thromboplastin Ratio 1.3; Partial Thromboplastin Time 35.9 Seconds (21.0-31.0)
[2022-05-30] MEDS: WARFARIN SOD 2.5 MG TAB PO SCH (16:17)
[2022-05-30 16:23] LABS: Blood Urine Negative (Negative); RBC Urine Automated 0-4 /hpf (0-4)
[2022-05-30 16:23] LABS: Appearance Urine Clear (Clear); Bacteria Urine Automated Negative (Negative); Bilirubin Urine Negative (Negative); Blood Urine Negative (Negative); Color Urine Dark Yellow; Glucose Urine UA Negative (Negative); Ketones Urine Trace (Negative); Leukocyte Esterase Urine Negative (Negative); Nitrite Urine Negative (Negative); Protein Urine Trace (Negative); RBC Urine Automated 0-4 /hpf (0-4); Specific Gravity Urine 1.021 (1.000-1.030); Urobilinogen Urine Negative (Negative)
[2022-05-30] MEDS ORDERED: EPINEPHrine ADULT AUTO-INJECT 0.3 MG SYR IM STA (16:28)
[2022-05-30] MEDS ORDERED: EPINEPHrine INJ 1 MG/ML AMP IM STA ×2 (16:31→17:51)
--- NOTE | 2022-05-30 16:49 | Communication Note ---
Date of Service: May 30, 2022 Contacted by RN that patient was having some low back pain, approx 5/10. There was no change in BP or temp at this time but he was getting a blood transfusion. He was lying prone and hyperextending his back in this position for much of the morning. Initially, this was thought to be positional. The pain increased to 10/10, however, and became more widespread. He developed shaking chills and his BP fell from 115/60 to 95/60. Temp remained steady at 36.6. He was not working to breathe. NSS 500 cc bolus was given with initial improvement in BP to 104/61. This decreased again to 86/40. Epi 3mg IM given. Awaiting response. CXR revealed increased pulmonary edema, however, patient is not experiencing a worsening hypoxia and no increased work of breathing. Post transfusion labs returned WBC 2.6, H/H 8.1/26.4, PLT 141. He is on coumadin with INR this am 2.1. PTT 36. Fibrinogen 391. BNP is 221 (169 five days ago). Straight cath urine sample is negative for RBCs or blood. Repeat blood cultures are pending. Other blood bank tests including JAYASHREE are pending. Total CK is pending. He was given a norco for back pain, taking his pain to a 3/10 and on repeat examination he appears more comfortable. As he is hypotensive, I explained the epinephrine to him including how it is administered and he verbalized understanding and acceptance of this therapy. Lungs were clear to auscultation on exam, CV exam unchanged and abdomen was protuberant, NTND. Mental status was clear and he had no gross focal neuro deficits. Critical care time spent so far is 30 minutes. This includes assessing patient at the bedside, collaborating with heel lift gouger and his primary nurse, and ordering and reviewing studies. DO Jet
--- NOTE | 2022-05-30 17:18 | Communication Note ---
Date of Service: May 30, 2022 Critical care: I was called as patient was having fever, chills as well as severe back pain and low blood pressure after being given blood transfusion. Patient's last echo which was done in October 2021 showed ejection fraction 25 to 30%. Patient is on 3 L oxygen. No increasing requirement of oxygen since his procedure. Chest x-ray personally reviewed. Portable film. Poor inspiratory effort. No significant change compared to the chest x-ray which was done 05/25/2022. Mild elevation of BNP compared to before. Plan: Give 500 L normal saline bolus. If there is no improvement in the blood pressure following this 0.3 mg 1 : 1000 epinephrine IM to be given and repeated every 10 minutes. Keep an eye for arrhythmia CPK, CBC, Candis test, haptoglobin, LDH to be ordered. Blood bank to be notified If there is respiratory compromise then patient should use BiPAP. He is on CPAP at home. For the severe back pain it could be seen in acute hemolytic transfusion reaction. Pain medications as needed. Keeping in mind that it will decrease the blood pressure At the patient does not respond to the above measures then we will take him to the ICU and start him on Levophed Plan was discussed with Dr. Chaudhary and RN I have personally spent 45 minutes of critical care time in the direct management of this patient. This is a life/limb threatening event. This includes time spent evaluating patient, direct bedside care, chart review, placing orders, interpretation of diagnostic studies, discussion with consultants, patient, and family members, as well as other required patient management activities. This time is exclusive of all separately billable procedures, and teaching time and separate from and in addition to any other critical care service time. Please note the above document was generated using voice recognition software. It may contain grammatical, syntax or spelling errors. Coding Level of Care Code Critical Care 1st 30-74 mins Time Spent (min) 45
[2022-05-30] MEDS ORDERED: STAT IV Infusion **Titration per Protocol STA (18:48)
[2022-05-30] MEDS ORDERED: METOPROLOL SUCC 50MG EXT REL TAB PO SCH (21:00)
[2022-05-30] MEDS: NOREPINEPHRINE/D5W 4 MG/250 ML PLCT IV SCH (21:39)
[2022-05-30] MEDS: TAMSULOSIN HCL 0.4 MG CAP PO SCH (21:39)
[2022-05-31 06:20] LABS: Basophils # (auto) 0.01 K/uL (0-0.2); Basophils % (auto) 0.2 %; Eosinophils # (auto) 0.07 K/uL (0-0.50); Eosinophils % (auto) 1.2 %; Hematocrit (blood only) 23.7 % (40.1-51.0); Hemoglobin 7.3 g/dl (14.0-18.0); Immature Granulocytes # (auto) 0.04 K/uL (0.00-0.02); Immature Granulocytes % (auto) 0.7 %; Lymphocytes # (auto) 0.38 K/uL (1.2-3.4); Lymphocytes % (auto) 6.4 %; Mean Corpuscular Hemoglobin 27.1 pg (25.0-34.0); Mean Corpuscular Hgb Conc 30.8 g/dL (32.0-36.0); Mean Corpuscular Volume 88.1 fL (80.0-100.0); Mean Platelet Volume 11.8 fL (9.4-12.4); Monocytes # (auto) 0.57 K/uL (0.24-0.82); Monocytes % (auto) 9.7 %; Neutrophils # (auto) 4.83 K/uL (1.4-6.5); Neutrophils % (auto) 81.8 %; Nucleated RBC # (auto) 0.02 K/uL (0-0); Nucleated RBC % (auto) 0.3 %; Platelet Count 161 K/uL (130-400); RDW Coefficient of Variation 18.6 % (11.5-14.5); RDW Standard Deviation 57.1 fL (36.4-46.3); Red Blood Count 2.69 M/uL (4.63-6.08)
[2022-05-31 06:26] LABS: INR 2.2 (0.9-1.1); Prothrombin Time 22.7 Seconds (9.0-12.0)
[2022-05-31 06:41] LABS: Albumin Level 2.2 gm/dl (3.4-5.0); BUN Creatinine Ratio 24.1 (10-20); Bilirubin Direct 0.2 mg/dl (0-0.2); Bilirubin,Total 0.6 mg/dl (0.2-1.0); Calcium 7.3 mg/dl (8.5-10.1); Creatinine Clr Calc Pharmacy 48.1 ml/min; Est GFR (African American) 37.5 ml/min; Est GFR (Non-African American) 32.4 ml/min; Magnesium 2.2 mg/dl (1.7-2.4); Phosphorus 3.8 mg/dl (2.5-4.9); Potassium 4.9 mmol/L (3.5-5.1); Total Protein 5.6 gm/dl (6.0-8.3)
[2022-05-31 07:06] LABS: Poikilocytosis Present; Tear Drop Cells 1+
[2022-05-31] MEDS: NOREPINEPHRINE/D5W 4 MG/250 ML PLCT IV SCH (08:12)
[2022-05-31] MEDS: LEVOTHYROXINE SODIUM 112 MCG TABLET PO SCH (08:12)
[2022-05-31] MEDS: guaiFENesin SUGAR FREE 100 MG/5 ML UDC PO SCH ×3 (08:13→21:10)
[2022-05-31] MEDS: AMIODARONE 200 MG TAB PO SCH ×2 (08:13→21:10)
[2022-05-31] MEDS: ASCORBIC ACID 500 MG TAB PO SCH (08:15)
[2022-05-31] MEDS: DOCUSATE SODIUM 100 MG CAP PO SCH ×2 (08:16→21:10)
[2022-05-31] MEDS: FERROUS SULFATE 325 MG TAB PO SCH (08:16)
--- NOTE | 2022-05-31 08:44 | Critical Care Progress Note ---
Date of Service May 31, 2022 Assessment & Plan (1) Acute hypoxemic respiratory failure: (2) Pneumonia due to COVID-19 virus: (3) Sleep apnea: Plan CT chest 05/25/2022 personally reviewed: Patchy opacities appreciated bilaterally upper and lower lobes Cardiomegaly No mediastinal lymphadenopathy 2D echo 10/21/2021: EF 25-30%, grade 1 diastolic dysfunction -- Transient hypotension Likely secondary to acute hemolytic transfusion reaction LDH mildly elevated to 77, CPK negative Follow-up Candis test and haptoglobin Need to be careful before transfusing any other blood products -- Acute Hypoxic respiratory failure Likely secondary to COVID-19 ammonia It seems that patient is developing fibrotic component to it looking at the CAT scan finding Patient was initially diagnosed on 05/13/2022 I think patient is too far from the diagnosis to have any benefit from remdesivir CRP 11.21 BNP 169 Procalcitonin 0.56 --SAE on CKD Likely secondary to hypotensive episode of the patient had yesterday Continue to monitor --Transaminitis Etiology could be from the cancer that he has on top of the chronic amiodarone which the patient is taking They have been stable since presentation Continue to monitor --MARIANNA Continue with CPAP --History of rectal cancer On chemotherapy --Hx of V. tach On amiodarone --Prophylaxis VTE: Warfarin on hold GI: Protonix Lines: Peripheral Diet: Cardiorenal Plan: In/out: +625 Monitor H&H Need to be careful before any transfusion no further blood products Gradually reinstate blood pressure and diuretic medication. Patient hemodynamically stable to be downgraded to medical floor Case discussed with Dr. Chaudhary Please note the above document was generated using voice recognition software. It may contain grammatical, syntax or spelling errors.Any formal questions or concerns about the content, text or information contained within the body of this dictation should be directly addressed to the provider for clarification. Admission and Anticipated Discharge Date Admission Date: May 25, 2022 Subjective Patient seen and examined at bedside. No acute distress, no adverse events overnight. Patient did not need vasopressor support overnight. Still complaining of mild rectal bleeding which is improved from before. Denies any headache. No nausea or vomiting. Did use CPAP overnight. Review of Systems Review of Systems: All systems reviewed & are unremarkable except as noted in Subjective Physical Exam Physical Exam: Constitutional: No acute distress HEENT: EOMI, PERRLA Respiratory system: Decreased air entry bilaterally, no wheeze, no rhonchi, positive crackles bilaterally CVS: S1-S2 positive Abdomen: Soft, nontender, nondistended, positive bowel sounds x4, obese Extremities: +2 pulses bilaterally radialis/ dorsalis pedis, no cyanosis, no edema Neuro: Awake alert oriented x3 Psych: Normal mood and affect G/U: No Bryant Skin: no rashes, warm and dry Lymphatic: no cervical or axillary lymphadenopathy Results & Data Results & Data ([facility]) Vital Signs (Past 12 Hours) Vital Signs Pulse Resp BP Pulse Ox 05/31/22 07:00 64 14 95 05/31/22 06:31 122/67 05/31/22 06:31 62 13 05/31/22 06:00 69 13 97 05/31/22 06:00 122/64 05/31/22 05:30 119/57 L 05/31/22 05:30 60 14 93 05/31/22 05:00 60 14 98 05/31/22 05:00 107/61 05/31/22 04:00 70 18 84 L 05/31/22 03:00 60 10 L 93 05/31/22 02:30 113/43 L 05/31/22 02:30 61 11 L 90 05/31/22 02:05 72 14 93 05/31/22 01:30 101/54 L 05/31/22 01:30 60 15 91 05/31/22 01:00 75 19 98 05/31/22 01:00 108/62 05/31/22 00:30 60 12 97 05/31/22 00:30 98/57 L 05/31/22 00:01 64 15 95 05/31/22 00:01 114/56 L 05/31/22 00:00 62 16 96 05/30/22 23:31 61 14 86 L 05/30/22 23:31 100/40 L 05/30/22 23:00 63 22 93 05/30/22 23:00 106/61 05/30/22 22:31 94/48 L 05/30/22 22:31 62 16 89 L 05/30/22 22:00 64 20 88 L 05/30/22 22:00 95/51 L 05/30/22 21:31 61 14 95 05/30/22 21:31 94/42 L 05/30/22 21:00 66 23 95 05/30/22 21:00 94/51 L Laboratory Results 05/31/22 05:53 05/31/22 05:53 Coding Level of Care Code 21741 Subseq Hosp Care Lvl 2 Diagnoses Acute hypoxemic respiratory failure J96.01 Pneumonia due to COVID-19 virus U07.1; J12.82 Sleep apnea G47.33 Sleep apnea type: obstructive (1) Sleep apnea Sleep apnea type: obstructive Qualified Code(s): G47.33 - Obstructive sleep apnea (adult) (pediatric)
--- NOTE | 2022-05-31 10:48 | Nephrology Progress Note ---
Date of Service May 31, 2022 Assessment & Plan (1) Acute worsening of stage 3 chronic kidney disease: Plan: as of 05/31 meets SAE criteria. baseline creatinine in clinic/[facility] system is 1.5-1.6, or ckd 3A. difficult to tell what his more recent baseline is as he has been inpatient now for nearly a month w/ multiple admissions. chemistries and volume status ok. UA yesterday (prereaction) without evidence of ATN or infection or dramatic inflammation and with evidence of volume depletion>suspect prerenal SAE from preexisting mild intravascular volume depletion then w/ renal ischemia -no indication for repeat renal imaging at this time -daily bmp -hold lasix as of today > use prn dyspnea only and would give low dose IV not po preferentially -will repeat UA today given new SAE; pt w/ hx of chornic dipstick proteinuria -progressive anemia > doubt volume overload or CKD - related; ?CA related; s/p severe acute hemolytic transfusion reaction 05/30; per primary service Admission and Anticipated Discharge Date Admission Date: May 25, 2022 Subjective had pRBC yesterday w/ acute hemolytic transfusion reaction and moved to ICU; got epinephrine and morphine and 1/2 L NS; had about 8 hrs of SBP in 90s yesterday; pressor was ordered but not ultimately needed; clinically improved today; 02 needs steady; BP recovered back pain improved; no chills; no F; no gross hematuria; feels appetite a bit better today; had lasix per protocol w/ pRBC but else no lasix yesterday Review of Systems Review of Systems: All systems reviewed & are unremarkable except as noted in Subjective Physical Exam Constitutional: well developed, well nourished and + obese (on 02NC 4L lying flat when I saw him); no acute distress Eyes: EOM intact bilaterally ENMT: Ears: no external ear abnormality Nose: no external nose abnormality Mouth: + dry oral mucous membranes Neck: no nuchal rigidity Respiratory: normal respiratory effort; no cough Auscultation: + diminished lung sounds Gastrointestinal (Abdomen): Inspection/Auscultation: normal bowel sounds Percussion/Palpation: abdomen soft; abdomen nontender Musculoskeletal: Extremities: strength 5/5 throughout Skin: no rashes, warm and dry Psychiatric: Orientation: oriented x 3 Speech: normal rate/rhythm/volume of speech Affect: + flat affect Results & Data ([facility]) Vital Signs (Past 12 Hours) Vital Signs Temp Pulse Resp BP Pulse Ox O2 Del Method O2 Flow Rate 05/31/22 10:00 65 20 92 05/31/22 09:55 125/61 05/31/22 09:55 62 17 99 05/31/22 08:33 70 18 92 05/31/22 08:33 97/59 L 05/31/22 08:32 88/38 L 05/31/22 08:32 61 16 05/31/22 08:00 60 16 95 05/31/22 10:30 Nasal Cannula 3 05/31/22 08:00 36.8 C 05/31/22 07:00 64 14 95 05/31/22 06:31 122/67 05/31/22 06:31 62 13 05/31/22 06:00 69 13 97 05/31/22 06:00 122/64 05/31/22 05:30 119/57 L 05/31/22 05:30 60 14 93 05/31/22 05:00 60 14 98 05/31/22 05:00 107/61 05/31/22 04:00 70 18 84 L 05/31/22 03:00 60 10 L 93 05/31/22 02:30 113/43 L 05/31/22 02:30 61 11 L 90 05/31/22 02:05 72 14 93 05/31/22 01:30 101/54 L 05/31/22 01:30 60 15 91 05/31/22 01:00 75 19 98 05/31/22 01:00 108/62 05/31/22 00:30 60 12 97 05/31/22 00:30 98/57 L 05/31/22 00:01 64 15 95 05/31/22 00:01 114/56 L 05/31/22 00:00 62 16 96 05/30/22 23:31 61 14 86 L 05/30/22 23:31 100/40 L 05/30/22 23:00 63 22 93 05/30/22 23:00 106/61 Laboratory Results 05/31/22 05:53 05/31/22 05:53
[2022-05-31] MEDS: ONDANSETRON INJ 2 MG/ML 2 ML VIAL IV PRN (11:43)
--- NOTE | 2022-05-31 16:11 | Cardiology Consultation ---
Date of Consultation May 31, 2022 Assessment & Plan (1) Acute respiratory failure with hypoxemia: (2) Pneumonia due to COVID-19 virus: (3) Acute hypoxemic respiratory failure: (4) Worsening renal function: (5) Acute worsening of stage 3 chronic kidney disease: (6) Colon cancer: (7) Ventricular tachycardia (paroxysmal): (8) Elevated LFTs: (9) Atrial fibrillation: (10) Left ventricular aneurysm: (11) Cardiomyopathy: (12) History of implantable cardioverter-defibrillator (ICD) placement: Plan Medically complex 61-year-old male admitted for COVID-19 associated pneumonia and acute hypoxic respiratory failure. Also currently undergoing ongoing treatment for rectal/colon carcinoma. 2D echocardiogram is unchanged except for increased pulmonary pressures which is expected given the clinical consequence. No further cardiac testing intervention necessary at this time. No changes from a cardiac standpoint. LV thrombus is present and anticoagulation will be maintained History of Present Illness Reason for Consultation: Cardiomyopathy Requesting Physician: Dr. Chaudhary Attending Physician: Olamide Chaudhary, DO History of Present Illness Mr. Robel Harman is a very pleasant medically complex 61-year-old gentleman who is very well-known to our cardiology practice. He presented to [facility] on 05/25/2022 with hypoxic acute respiratory failure. He was diagnosed with COVID-19 pneumonia, admitted to the intensive care unit and seen by critical care, pulmonary and nephrology. Given his complex history of cardiac disease cardiology was consulted. He is well known to [facility], following primarily with Dr. Jaffe/Carol Shankar PA-C. History includes: 1. Severe cardiomyopathy, combined ischemic and nonischemic, with expanded apical aneurysm initially diagnosed August 2000, likely with an old MD. 2. NYHA Class III, Stage C chronic systolic congestive heart failure 3. Status post dual-chamber pacemaker-defibrillator implantation April 2014. 4. History of LV apical thrombus 5. Nonobstructive coronary disease cardiac catheterization last in March 2012. 6. Paroxysmal atrial fibrillation. 7. Recurrent symptomatic ventricular tachycardia, prescribed amiodarone, 8. Chronic obstructive sleep apnea on PAP and oxygen supplementation. 9. Hypertension 10. Dyslipidemia 11. Anxiety 12. Hypothyroidism 13. Chronic kidney disease, stage III 14. Iron deficiency anemia 15. Adenocarcinoma of the colon diagnosed in September 2021 Allergies Allergy/AdvReac Type Severity Reaction Status Date / Time phytonadione (vitamin K1) AdvReac Severe Chest Pain Verified 05/15/22 08:51 Home Medications Medication Instructions Recorded Confirmed Type amiodarone 200 mg tablet 300 mg PO Q12 09/07/19 05/13/22 History hydrocodone 5 mg-acetaminophen 325 1 tab PO Q6 PRN Pain 09/07/19 05/13/22 History mg tablet levothyroxine 112 mcg tablet 112 mcg PO DAILYBB 01/11/20 05/13/22 History nitroglycerin 0.4 mg sublingual 0.4 mg sublingual UD PRN Chest Pain 08/13/20 05/13/22 History tablet (Nitrostat) isosorbide mononitrate 30 mg 30 mg PO QPM 12/25/20 05/13/22 History tablet,extended release 24 hr metoprolol succinate 100 mg 100 mg PO BID 10/20/21 05/13/22 History tablet,extended release 24 hr ferrous sulfate 325 mg (65 mg 325 mg PO DAILY #30 tabs 10/21/21 05/13/22 Rx iron) tablet,delayed release iron,carbonyl 65 mg-vitamin C 125 1 tab PO DAILY 11/14/21 05/13/22 History mg tablet,delayed release (Vitron-C) ondansetron HCl 8 mg tablet 8 mg PO Q8H PRN Pain 12/04/21 05/13/22 History tamsulosin 0.4 mg capsule (Flomax) 0.4 mg PO HS #14 caps 12/20/21 05/13/22 Rx hydralazine 25 mg tablet 25 mg PO AMHS 04/27/22 05/13/22 History capecitabine 500 mg tablet 500 mg PO DIRECTED 05/13/22 05/13/22 History codeine 10 mg-guaifenesin 100 mg/5 10 ml PO Q6H PRN cough #120 mL 05/19/22 Rx mL oral liquid docusate sodium 100 mg capsule 100 mg PO BID #60 caps 05/19/22 Rx furosemide 20 mg tablet 40 mg PO DAILY #60 tabs 05/19/22 Rx Patient History Medical History ABLA (acute blood loss anemia) Acute GI bleeding Acute kidney failure Afib Maintained on low dose Amiodarone Anemia BRBPR (bright red blood per rectum) CAD (coronary artery disease) Non-obstructive per 2012 cath Cardiomyopathy Mixed ischemic and nonischemic CM - EF <20%- complicated by VT. ICD placed 2013 No VT episodes since 10/2020 per cardio records Current EF 20-25% F/U RADHA SHANKAR CHF (congestive heart failure) CHF (congestive heart failure) hx/no recent issues Chronic back pain CKD (chronic kidney disease) stage 3, GFR 30-59 ml/min Colon cancer COVID-19 Depression Elevated LFTs Gout History of kidney stones History of ventricular tachycardia Hypertension Hypothyroidism Ischemic cardiomyopathy with implantable cardioverter-defibrillator (ICD) LBBB (left bundle branch block) Incomplete per records Left ventricular aneurysm Dx'ed around 2011- on Coumadin- cardio monitoring Moderate in size and noted to apical and inferior area. Hx of LV apical thrombus Myocardial Infarction 15+ years ago- medically managed Non-sustained ventricular tachycardia On anticoagulant therapy WARFARIN Paroxysmal A-fib Pneumonia Pneumonia HX-2000 Presence of combination internal cardiac defibrillator (ICD) and pacemaker Implanted 2013 (follows with cardiology/Dr. Jaffe/RADHA SHANKAR) Rectal bleeding Sleep apnea CPAP SOB (shortness of breath) on exertion ON OCC Supratherapeutic INR Symptomatic anemia Weakness Surgical History H/O arthroscopic knee surgery multiple on bilateral knees H/O neck surgery History of cardiac cath 2011= NO STENTS History of colonoscopy (~09/15/21) History of cystoscopy History of esophagogastroduodenoscopy (EGD) History of implantable cardioverter-defibrillator (ICD) placement History of laminectomy L4-L5 History of lithotripsy History of lumbar surgery 09/17/19 Grade 1 view Mac 3, magnet placed on L chest wall during procedure History of tonsillectomy Status post uvulopalatopharyngoplasty Family History Father , 54yo Lung cancer Mother , 85yo Alzheimer disease Brother No problems noted. Brother No problems noted. Sister No problems noted. Daughter No problems noted. Daughter No problems noted. Social History Smoking Status: Never smoker Second Hand Exposure: No; Hx Alcohol Use: No Hx Substance Use: No Preferred Language: Burmese Communication Ability: Effective Visual Impairment: Limited Hearing Ability: Normal Performance Instructor Required: No Beliefs That Will Affect Care: None marital status: Current Living Situation: Significant Other Current Living Situation Comment: dtr lives next door current occupational status: disabled Other Information That Helps Us Care for You: No Feels Safe at Home: Yes Safety Concerns: Feels Safe At This Time caffeine: No during the past year weight has: decreased > 10 lbs Assistive Devices: Scooter/Electric Scooter Review of Systems Review of Systems: All systems reviewed & are unremarkable except as noted in HPI & below Physical Exam Physical Exam: General: Awake, alert and oriented x 3. No acute distress. HEENT: Normocephalic, atraumatic. Pupils equal, round and reactive to light and accommodation. Extraocular muscles are intact. Anicteric sclera. Moist m ucous membranes. Neck: No JVD. No bruit. Cardiovascular: Regular. Positive S-4. Normal S-1 and S-2. No S-3. No murmurs or rubs. Pulmonary: Coarse breath sounds diffusely with scattered rhonchi Abdomen: Bowel sounds x 4, soft. No rebound, guarding or tenderness. No organomegaly. Extremities: No clubbing, cyanosis or edema. +2 pedal pulses bilaterally. Skin: Warm and dry. Results & Data ([facility]) Vital Signs (Past 12 Hours) Vital Signs Temp Pulse Pulse Resp BP BP Pulse Ox 05/31/22 15:53 37.0 C 60 20 106/61 95 05/31/22 14:15 60 05/31/22 14:33 37.0 C 63 18 103/54 L 95 05/31/22 12:01 63 05/31/22 11:40 05/31/22 11:59 36.9 C 60 20 103/63 90 05/31/22 10:00 65 20 92 05/31/22 09:55 125/61 05/31/22 09:55 62 17 99 05/31/22 08:33 70 18 92 05/31/22 08:33 97/59 L 05/31/22 08:32 88/38 L 05/31/22 08:32 61 16 05/31/22 08:00 60 16 95 05/31/22 10:30 05/31/22 08:00 36.8 C 05/31/22 07:00 64 14 95 05/31/22 06:31 122/67 05/31/22 06:31 62 13 05/31/22 06:00 69 13 97 05/31/22 06:00 122/64 05/31/22 05:30 119/57 L 05/31/22 05:30 60 14 93 05/31/22 05:00 60 14 98 05/31/22 05:00 107/61 O2 Del Method O2 Flow Rate 05/31/22 15:53 Room Air 3 05/31/22 14:15 05/31/22 14:33 Nasal Cannula 3 05/31/22 12:01 05/31/22 11:40 Nasal Cannula 4 05/31/22 11:59 Nasal Cannula 4 05/31/22 10:00 05/31/22 09:55 05/31/22 09:55 05/31/22 08:33 05/31/22 08:33 05/31/22 08:32 05/31/22 08:32 05/31/22 08:00 05/31/22 10:30 Nasal Cannula 3 05/31/22 08:00 05/31/22 07:00 05/31/22 06:31 05/31/22 06:31 05/31/22 06:00 05/31/22 06:00 05/31/22 05:30 05/31/22 05:30 05/31/22 05:00 05/31/22 05:00 Diagnostic Findings 2D echocardiogram performed 05/27/2023: Compared to previous study of November 2021: Pulmonary pressures have increased and pulmonary hypertension is now present. Moderately dilated LV chamber size with moderate concentric LVH. Moderately reduced LV systolic function with mod erate global hypokinesis, EF 35 to 40%. There is an apical left ventricular mural thrombus of moderate size and flat in appearance. Grade 1 diastolic dysfunction. Mild focal calcification of the aortic valve between the noncoronary and right coronary cusps. Mild aortic regurgitation. Mild secondary mitral regurgitation. Severe left atrial enlargement. Pulmonary hypertension is present with a PA systolic pressure of 42mmHg assuming a right atrial pressure of 8 mm. (1) Atrial fibrillation Atrial fibrillation type: unspecified Qualified Code(s): I48.91 - Unspecified atrial fibrillation
--- NOTE | 2022-05-31 16:35 | Hospitalist Progress Note ---
Date of Service May 31, 2022 Assessment & Plan (1) Acute respiratory failure with hypoxemia: Plan: - Recent diagnosis of COVID-19 virus infection on 05/13/2022 and was treated with dexamethasone - Has been noted to be very hypoxic and doctor's office with the saturation of 70s - Repeat COVID test came back positive with increasing infiltrate involving the lungs on chest x-ray - Received a dose of Solu-Medrol in the emergency room - CT with inflammation/infectious process with possible underlying fibrosis - continue on dexamethasone for 10 day course - changed to 5 day course per pulm as they think this is mostly fibrosis and will take time - discontinued remdesivir per pulm as he is too far out for it to be effective - was on 3L NC at 95% 05/29/2022 - worsening pulmonary edema after blood transfusion reaction and no Lasix given 2/2 hypotension and rising creatinine. Increased cough today and worsened dyspnea with exertion indicative of worsened pulmonary edema. -will follow kidney function in am and consider additional diuretic at that time if able. -Lasix/BIPAP as needed for acute worsening of dyspnea (2) Pneumonia due to COVID-19 virus: Plan: - Fully vaccinated - Initial COVID-19 test was positive on of this month and remained positive as of today - Chest x-ray did show increasing opacities - CRP more than 11 and procalcitonin is not elevated - Recently finished a course of antibiotic during last admission - Will not give any antibiotic for now - dexamethasone and remdesivir as above - O2 supplementation, need complicated by pulmonary edema, wean as tolerated (3) Rectal cancer: Plan: Was diagnosed in 2020 and has been under chemotherapy Last chemo received about 1 month before Recent history of bright red blood per rectum Has not been complaining any rectal pain and there is no bleeding as of now Hemoglobin remained normal at 8.7 as of 05/25/2022 This has dropped to 7.22 on 05/30 and with ongoing symptoms of exertional dyspnea, he received 1 unit of blood for treatment of symptomatic anemia. -non hemolytic transfusion reaction followed -Currently contacting colorectal surgeon for consideration of transfer to [facility] [place] [facility] for medical optimization and removal of rectal mass. (4) Acute worsening of stage 3 chronic kidney disease: Plan: Likely related to recent diuretic use. Lasix plan as above per Nephrology (5) Ventricular tachycardia (paroxysmal): Plan: - rate controlled - continue BB -pt denies any ICD shocks. -is planned for outpatient EP care. (6) Paroxysmal A-fib: Plan: - rate controlled - continue BB and warfarin on hold given the rectal bleeding and inability to give blood at this time. -monitor daily INR as supratherapeutic higher risk given the interaction with h igh dose amio and this will promote extra GI bleeding. (7) Ischemic cardiomyopathy with implantable cardioverter-defibrillator (ICD): Plan: Status post ICD placement - EF 20-25% 10/2021 No acute chest pain and no palpitation ?covid pneumonia vs pulmonary edema on imaging and exertional SOB may be an exacerbation of heart failure with ongoing pulmonary edema known LV apical clot which is the reason for coumadin, currently on hold. (8) Sleep apnea: Plan: CPAP qHS (9) Hypothyroidism: Plan: Chronic, stable continue supplementation per home regimen. (10) DVT prophylaxis: Plan: Therapeutic INR on warfarin Full Code Dispo-pending resolution of hypoxia and improvement clinically, at this point, with ongoing pulmonary edema and hypoxia, limited ability to given diuretic therapy with worsening creatinine and slowing urine output, underlying cardiac dysfunction, covid positive status and ongoing bleeding 2/2 GI losses in the setting of anemia and recent transfusion reaction to blood limiting options of therapy, have contacted [facility] for transfer for medical optimization and consideration of rectal mass removal by CRC surgeon, Dr. Mosquera. Olamide Chaudhary DO [facility] Hospitalist Admission and Anticipated Discharge Date Admission Date: May 25, 2022 Subjective 61-year-old man with history of nonischemic cardiomyopathy and ejection fraction approximately 25% on coumadin with known apical thrombus presented as a readmission for acute respiratory failure. He was recently positive for COVID and had also gotten blood during his last admission. He presented with acute worsening hypoxia 2/2 pulmonary edema vs covid pneumonia. During his last admission he completed a course of antibiotics for possible superimposed bacterial pneumonia. He was placed on Lasix twice daily IV and this was held in the setting of a creatinine bump to 1.8 from baseline 1.5. As he was reporting dyspnea on exertion, and Hb was 7.2 he was given one unit of pRBCs and experienced a non-hemolytic transfusion reaction with chills and severe back pain. Transfusion stopped and pain treated with norco. BP was low and epi given x 2. When no improvement was sent to ICU for temporary support with Levophed. Creat worse today at 2.2. Pulmonary edema is worse and patient is more dyspneic with exertion, still requiring oxygen and now has his cough back again. Hb 7.3 today. Very minimal oozing blood per rectum reported. Although we can technically give him blood again per pathology as JAYASHREE was negative, this is of concern, especially without hematology support. His urine output has now dropped off with 150cc out this shift. Contacted his medical oncologist who suggested surgery may be an option as that was the original plan. I contacted [facility] and colorectal surgery has accepted him (Dr. Zev Grove-colorectal surgery), however, with his medical issues we need a medical acceptance first. ICU declined and awaiting secondary review from hospitalist service in am. Review of Systems Review of Systems: All systems reviewed and negative except as indicated above. Physical Exam Physical Exam: CONSTITUTIONAL: obese vitals as above, generally well- appearing, NAD EYES: normal conjunctivae, no scleral icterus, ENT: external ear and nose normal, MMM NECK: trachea midline, RESPIRATORY: some crackles throughout all lungs [place] but good air movement, no rales or wheezes, normal respiratory effort. CARDIOVASCULAR: regular rate and rhythm, S1 and 2 heard without murmurs, gallops or rubs, no JVD, no peripheral edema, GASTROINTESTINAL: soft, nontender, protuberant, ND, no guarding MUSCULOSKELETAL: strength 5/5 throughout, head is normocephalic and atraumatic SKIN: warm and dry NEUROLOGIC: CN 2-12 grossly intact, no sensory deficit, normal cognition, normal speech, no tremor PSYCHIATRIC: alert cooperative and oriented to person, place and time. Euthymic mood, makes good eye contact, language grossly intact, recent and remote memory grossly intact. Results & Data Results & Data ([facility]) Vital Signs (Past 12 Hours) Vital Signs Temp Pulse Pulse Resp BP BP Pulse Ox 05/31/22 15:53 37.0 C 60 20 106/61 95 05/31/22 14:15 60 05/31/22 14:33 37.0 C 63 18 103/54 L 95 05/31/22 12:01 63 05/31/22 11:40 05/31/22 11:59 36.9 C 60 20 103/63 90 05/31/22 10:00 65 20 92 05/31/22 09:55 125/61 05/31/22 09:55 62 17 99 05/31/22 08:33 70 18 92 05/31/22 08:33 97/59 L 05/31/22 08:32 88/38 L 05/31/22 08:32 61 16 05/31/22 08:00 60 16 95 05/31/22 10:30 05/31/22 08:00 36.8 C 05/31/22 07:00 64 14 95 05/31/22 06:31 122/67 05/31/22 06:31 62 13 05/31/22 06:00 69 13 97 05/31/22 06:00 122/64 05/31/22 05:30 119/57 L 05/31/22 05:30 60 14 93 05/31/22 05:00 60 14 98 05/31/22 05:00 107/61 O2 Del Method O2 Flow Rate 05/31/22 15:53 Room Air 3 05/31/22 14:15 05/31/22 14:33 Nasal Cannula 3 05/31/22 12:01 05/31/22 11:40 Nasal Cannula 4 05/31/22 11:59 Nasal Cannula 4 05/31/22 10:00 05/31/22 09:55 05/31/22 09:55 05/31/22 08:33 05/31/22 08:33 05/31/22 08:32 05/31/22 08:32 05/31/22 08:00 05/31/22 10:30 Nasal Cannula 3 05/31/22 08:00 05/31/22 07:00 05/31/22 06:31 05/31/22 06:31 05/31/22 06:00 05/31/22 06:00 05/31/22 05:30 05/31/22 05:30 05/31/22 05:00 05/31/22 05:00 Laboratory Results Short CBC 05/31/22 Range/Units 05:53 WBC 5.90 (4.8-10.8) K/ul Hgb 7.3 L (14.0-18.0) g/dl Hct 23.7 L (40.1-51.0) % Plt Count 161 (130-400) K/uL BMP 05/31/22 05:53 Sodium 135 L Potassium 4.9 Chloride 99 Carbon Dioxide 33 H BUN 51 H Creatinine 2.12 H Glucose 79 Calcium 7.3 L Cardiac Enzymes 05/30/22 Range/Units 15:36 Total Creatine Kinase 35 (30-223) U/L Liver Function 05/31/22 Range/Units 05:53 Total Bilirubin 0.6 (0.2-1.0) mg/dl Direct Bilirubin 0.2 (0-0.2) mg/dl AST 162 H (13-39) U/L ALT 94 H (7-52) U/L Alkaline Phosphatase 172 H (34-104) U/L Albumin 2.2 L (3.4-5.0) gm/dl Medications Administered Current Inpatient Medications Hydrocodone Bitart/Acetaminophen (Hydrocodone/Acetamophen 5/325mg Tab) 1 tab PO Q6 PRN PRN Reason: Pain Stop: 06/08/22 19:53 Last Admin: 05/30/22 16:02 Dose: 1 tab Albuterol (Albut/Ipratrop 3mg/0.5mg Neb 3 Ml Vial) 3 ml NEB Q4R PRN; Protocol PRN Reason: Shortness Of Breath Or Wheezing Stop: 06/24/22 22:59 Last Admin: 05/28/22 01:56 Dose: 3 ml Amiodarone HCl (Amiodarone 200 Mg Tab) 300 mg PO Q12 [facility] Stop: 06/24/22 20:59 Last Admin: 05/31/22 08:13 Dose: 300 mg Ascorbic Acid (Ascorbic Acid 500 Mg Tab) 250 mg PO QAM [facility] Stop: 06/25/22 08:59 Last Admin: 05/31/22 08:15 Dose: 250 mg Docusate Sodium (Docusate Sodium 100 Mg Cap) 100 mg PO BID [facility] Stop: 06/24/22 20:59 Last Admin: 05/31/22 08:16 Dose: 100 mg Ferrous Sulfate (Ferrous Sulfate 325 Mg Tab) 325 mg PO QAM [facility] Stop: 06/25/22 08:59 Last Admin: 05/31/22 08:16 Dose: 325 mg Furosemide (Furosemide 20 Mg Tab) 20 mg PO [id number] [facility] Stop: 06/28/22 16:59 Last Admin: 05/29/22 17:50 Dose: 20 mg Guaifenesin (Guaifenesin Sugar Free 100 Mg/5 Ml Udc) 100 mg PO Q8 [facility] Stop: 06/27/22 21:59 Last Admin: 05/31/22 14:35 Dose: 100 mg Guaifenesin/Codeine Phosphate (Guaifenesin/Codeine 200mg/20mg 10ml Udc) 10 ml PO Q6H PRN PRN Reason: cough Stop: 06/24/22 19:53 Last Admin: 05/28/22 00:30 Dose: 10 ml Hydralazine HCl (Hydralazine Hcl 25 Mg Tab) 25 mg PO BID [facility] Stop: 06/24/22 20:59 Last Admin: 05/30/22 08:43 Dose: 25 mg Isosorbide Mononitrate (Isosorbide [place] Extended Rel 30 Mg Tabcr) 30 mg PO QPM [facility] Stop: 06/24/22 20:59 Last Admin: 05/29/22 20:10 Dose: 30 mg Levothyroxine Sodium (Levothyroxine Sodium 112 Mcg Tablet) 112 mcg PO DAILYBB [facility] Stop: 06/25/22 06:29 Last Admin: 05/31/22 08:12 Dose: 112 mcg Lorazepam (Lorazepam 0.5 Mg Tab) 0.5 mg PO TID PRN PRN Reason: Anxiety Stop: 06/29/22 01:37 Last Admin: 05/30/22 01:58 Dose: 0.5 mg Metoprolol Succinate (Metoprolol Succ 50mg Ext Rel Tab) 50 mg PO BID [facility] Stop: 06/29/22 20:59 Last Admin: 05/30/22 21:39 Dose: 50 mg Nitroglycerin (Nitroglycerin Sl 0.4 Mg/Tab Tab) 0.4 mg SL UD PRN PRN Reason: Chest Pain Stop: 06/24/22 19:53 Ondansetron HCl (Ondansetron Inj 2 Mg/Ml 2 Ml Vial) 4 mg IV Q6H PRN PRN Reason: Nausea And Vomiting Stop: 06/25/22 12:13 Last Admin: 05/31/22 11:43 Dose: 4 mg Tamsulosin HCl (Tamsulosin Hcl 0.4 Mg Cap) 0.4 mg PO HS [facility] Stop: 06/24/22 20:59 Last Admin: 05/30/22 21:39 Dose: 0.4 mg Warfarin Sodium (Warfarin Sod 2.5 Mg Tab) 2.5 mg PO DAILY@1600 [facility] Stop: 06/25/22 15:59 Last Admin: 05/30/22 16:17 Dose: Not Given (1) Hypothyroidism Hypothyroidism type: unspecified Qualified Code(s): E03.9 - Hypothyroidism, unspecified
[2022-05-31] MEDS: ALBUT/IPRATROP 3MG/0.5MG NEB 3 ML VIAL NEB PRN (18:22)
[2022-05-31 18:39] LABS: Appearance Urine Clear (Clear); Bacteria Urine Automated Negative (Negative); Bilirubin Urine Negative (Negative); Blood Urine Negative (Negative); Color Urine Dark Yellow; Glucose Urine UA Negative (Negative); Ketones Urine Trace (Negative); Leukocyte Esterase Urine Negative (Negative); Nitrite Urine Negative (Negative); Protein Urine 1+ (Negative); RBC Urine Automated 0-4 /hpf (0-4); Specific Gravity Urine 1.022 (1.000-1.030); Urobilinogen Urine Negative (Negative); pH Urine 5.5 (4.5-7.5)
[2022-05-31] MEDS: TAMSULOSIN HCL 0.4 MG CAP PO SCH (21:10)
[2022-06-01] MEDS: guaiFENesin SUGAR FREE 100 MG/5 ML UDC PO SCH ×2 (05:37→15:24)
[2022-06-01] MEDS: LEVOTHYROXINE SODIUM 112 MCG TABLET PO SCH (05:37)
[2022-06-01 06:31] LABS: Hematocrit (blood only) 23.5 % (40.1-51.0); Hemoglobin 7.1 g/dl (14.0-18.0); Mean Corpuscular Hemoglobin 26.9 pg (25.0-34.0); Mean Corpuscular Hgb Conc 30.2 g/dL (32.0-36.0); Mean Platelet Volume 12.2 fL (9.4-12.4); Platelet Count 158 K/uL (130-400); RDW Coefficient of Variation 18.6 % (11.5-14.5); RDW Standard Deviation 59.5 fL (36.4-46.3); Red Blood Count 2.64 M/uL (4.63-6.08)
[2022-06-01 07:04] LABS: BUN Creatinine Ratio 25.4 (10-20); Calcium 7.4 mg/dl (8.5-10.1); Creatinine Clr Calc Pharmacy 59.5 ml/min; Est GFR (Non-African American) 41.4 ml/min; Potassium 4.9 mmol/L (3.5-5.1)
[2022-06-01] MEDS: FERROUS SULFATE 325 MG TAB PO SCH (09:50)
[2022-06-01] MEDS: ASCORBIC ACID 500 MG TAB PO SCH (09:51)
[2022-06-01] MEDS: AMIODARONE 200 MG TAB PO SCH (09:51)
[2022-06-01] MEDS: DOCUSATE SODIUM 100 MG CAP PO SCH (09:55)
[2022-06-01] MEDS ORDERED: FUROSEMIDE INJ 20 MG/2 ML VIAL IV ONE ×2 (09:59→10:01)
[2022-06-01] MEDS ORDERED: FUROSEMIDE 20 MG TAB PO SCH (10:00)
[2022-06-01 11:41] VITALS: TEMP 98.1
--- NOTE | 2022-06-01 12:32 | Discharge Summary ---
Date of Service June 01, 2022 Admission HPI Per Admitting Provider He is a 61-year-old obese male with significant past medical history of sigmoid/colon cancer, mixed ischemic and nonischemic cardiomyopathy, V. 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 He was sent home on oral antibiotics including doxycycline and Augmentin which he has almost finished. He has been complaining of more shortness of breath, weakness and dizziness that he could hardly move around without being short of breath and noted to have very low saturation of 70s at doctor's office and he was sent to emergency room for further evaluation. Denies any chest pain and/or palpitation, does not have any abdominal distention but feels nauseous without vomiting and there is no increasing rectal bleeding. No increasing swelling of the legs. Apparently all of his family members has COVID-19 virus infection and he is being fully vaccinated. He was diagnosed to have COVID-19 virus infection during his recent hospitalization which was treated with IV dexamethasone and he cannot have remdesivir due to increased LFTs and other immunotherapy due to colon cancer. His x-ray did show increasing infiltration suggestive of worsening COVID-19 virus infection/pneumonia and he was a started with intravenous Solu-Medrol and also received a dose of vancomycin and intravenous cefepime. 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 given apical LV thrombus rectal cancer with mass s/p XRT and chemo, awaiting surgery ongoing hematochezia and GI blood loss anemia given friable, oozing rectal mass GI blood loss anemia with non-hemolytic RBC transfusion reaction on 05/30 (severe back pain, chills, and hypotension resulted) Obesity MARIANNA on CPAP Discharge Exam CONSTITUTIONAL: obese vitals as above, generally well-appearing, NAD EYES: normal conjunctivae, no scleral icterus, ENT: external ear and nose normal, MMM NECK: trachea midline, RESPIRATORY: CTA throughout, good air movement, no rales or wheezes, normal respiratory effort. CARDIOVASCULAR: regular rate and rhythm, S1 and 2 heard without murmurs, gallops or rubs, no JVD, no peripheral edema, GASTROINTESTINAL: soft, nontender, protuberant, ND, no guarding MUSCULOSKELETAL: strength 5/5 throughout, head is normocephalic and atraumatic SKIN: warm and dry NEUROLOGIC: CN 2-12 grossly intact, no sensory deficit, normal cognition, normal speech, no tremor PSYCHIATRIC: alert cooperative and oriented to person, place and time. Euthymic mood, makes good eye contact, language grossly intact, recent and r emote memory grossly intact. Discharge Data Allergies Allergy/AdvReac Type Severity Reaction Status Date / Time phytonadione (vitamin K1) AdvReac Severe Chest Pain Verified 05/15/22 08:51 Consultations 05/25/22 17:08 ED Decision to Admit Stat 05/28/22 14:52 Consult Pulmonology Routine 05/29/22 10:07 Consult Nephrology Routine 05/30/22 17:35 Consult Primary Substance Abuse Counselor Stat 05/31/22 10:43 Consult Cardiology Routine 06/01/22 12:05 Burn CD for patient Routine Ordered Studies 05/25/22 15:23 CT chest diagnostic wo con Stat Hospital Course (1) Acute respiratory failure with hypoxemia: (2) Pneumonia due to COVID-19 virus: (3) Rectal cancer: (4) Acute worsening of stage 3 chronic kidney disease: (5) Ventricular tachycardia (paroxysmal): (6) Paroxysmal A-fib: (7) Ischemic cardiomyopathy with implantable cardioverter-defibrillator (ICD): Plan Recurrent admissions the first of which was 04/27/2022 to 04/30/2022 for lower GI bleed. Warfarin and aspirin was held and he was sent to [facility]. He returned 05/13-05/19. During this hospital stay he was diagnosed with COVID and temporarily treated with remdesivir and Decadron. Pulmonary edema had improved and he was off oxygen confirmed with a normal two-step test prior to discharge. He was treated for possible bacterial pneumonia during this time. He subsequently was readmitted on 05/25 after worsening hypoxia at home within a couple of days of discharge. At primary care doctor's office his saturation was found to be in the 70s and chest x-ray revealed increasing infiltrate involving both lungs. He received a dose of Solu-Medrol in the emergency room. CT was performed revealing inflammation/infectious process with possible underlying fibrosis. He was started again on dexamethasone and remdesivir, and pulmonology was consulted. They recommended the patient was developing fibrotic component per the appearance on the CT scan. Dexamethasone was discontinued as he had already had significant treatment for this. Remdesivir was stopped as he was felt to be outside of the treatment window of benefit. Tocilizumab was consi dered but not given with high risk for GI perforation. He improved but remained anemic and dyspneic with exertion. Based on criteria for symptomatic anemia he was transfused 1 unit of blood. Within 1 hour of blood transfusion he developed a severe reaction including a 10 out of 10 back pain and shaking chills. His blood pressure fell and he required 500 cc bolus of normal saline. This improve d his blood pressure temporarily but could not be maintained given the pulmonary edema. Therefore he received 0.3 mg of intramuscular epinephrine. Hypotension did not resolve and he received an additional 0.5 mg of intramuscular epinephrine and was transferred to the ICU for temporary Levophed. No arrhythmias were noted on telemetry. He was returned to the floor the following day in improved condition. Back pain had resolved and blood work had revealed a nonhemolytic transfusion with a persistent anemia, Hb 7.2. Coumadin was held and INR on 05/31 was 2.2. Given the higher risk of further transfusion reactions, lack of hematologic inpatient support at this facility, and complex picture including rectal cancer awaiting surgical treatment, it was decided he should be transferred to [facility] for additional optimization and consideration of mass removal. The case was discussed with Dr. Grove from colorectal surgery and was discussed with the medical ICU who declined acceptance (appropriately) and the medical triage officer who accepted the patient the following day. The patient was transferred in stable condition with the understanding that the move towards [facility] was to help optimize him with his underlying comorbidities and expedite evaluation by colorectal surgery given his young age and completion of neoadjuvant therapies already. He fully understands he may not have surgery during this admission and agrees to the transfer. Notably his Coumadin was held until further assessment by hematology or internal medicine at [facility] can take place. Current Inpatient Medications Hydrocodone Bitart/Acetaminophen (Hydrocodone/Acetamophen 5/325mg Tab) 1 tab PO Q6 PRN PRN Reason: Pain Stop: 06/08/22 19:53 Last Admin: 05/30/22 16:02 Dose: 1 tab Albuterol (Albut/Ipratrop 3mg/0.5mg Neb 3 Ml Vial) 3 ml NEB Q4R PRN; Protocol PRN Reason: Shortness Of Breath Or Wheezing Stop: 06/24/22 22:59 Last Admin: 05/31/22 18:22 Dose: 3 ml Amiodarone HCl (Amiodarone 200 Mg Tab) 300 mg PO Q12 TASH Stop: 06/24/22 20:59 Last Admin: 06/01/22 09:51 Dose: 300 mg Ascorbic Acid (Ascorbic Acid 500 Mg Tab) 250 mg PO QAM REPLACED BY [facility] Stop: 06/25/22 08:59 Last Admin: 06/01/22 09:51 Dose: 250 mg Docusate Sodium (Docusate Sodium 100 Mg Cap) 100 mg PO BID REPLACED BY [facility] Stop: 06/24/22 20:59 Last Admin: 06/01/22 09:55 Dose: 100 mg Ferrous Sulfate (Ferrous Sulfate 325 Mg Tab) 325 mg PO QAM REPLACED BY [facility] Stop: 06/25/22 08:59 Last Admin: 06/01/22 09:50 Dose: 325 mg Furosemide (Furosemide Inj 20 Mg/2 Ml Vial) 20 mg IV BID17 REPLACED BY [facility] Stop: 07/01/22 16:59 Guaifenesin (Guaifenesin Sugar Free 100 Mg/5 Ml Udc) 100 mg PO Q8 REPLACED BY [facility] Stop: 06/27/22 21:59 Last Admin: 06/01/22 05:37 Dose: 100 mg Guaifenesin/Codeine Phosphate (Guaifenesin/Codeine 200mg/20mg 10ml Udc) 10 ml PO Q6H PRN PRN Reason: cough Stop: 06/24/22 19:53 Last Admin: 05/28/22 00:30 Dose: 10 ml Hydralazine HCl (Hydralazine Hcl 25 Mg Tab) 25 mg PO BID REPLACED BY [facility] Stop: 06/24/22 20:59 Last Admin: 05/30/22 08:43 Dose: 25 mg Isosorbide Mononitrate (Isosorbide [place] Extended Rel 30 Mg Tabcr) 30 mg PO QPM TASH Stop: 06/24/22 20:59 Last Admin: 05/29/22 20:10 Dose: 30 mg Levothyroxine Sodium (Levothyroxine Sodium 112 Mcg Tablet) 112 mcg PO DAILYBB REPLACED BY [facility] Stop: 06/25/22 06:29 Last Admin: 06/01/22 05:37 Dose: 112 mcg Lorazepam (Lorazepam 0.5 Mg Tab) 0.5 mg PO TID PRN PRN Reason: Anxiety Stop: 06/29/22 01:37 Last Admin: 05/30/22 01:58 Dose: 0.5 mg Metoprolol Succinate (Metoprolol Succ 50mg Ext Rel Tab) 50 mg PO BID TASH Stop: 06/29/22 20:59 Last Admin: 05/30/22 21:39 Dose: 50 mg Nitroglycerin (Nitroglycerin Sl 0.4 Mg/Tab Tab) 0.4 mg SL UD PRN PRN Reason: Chest Pain Stop: 06/24/22 19:53 Ondansetron HCl (Ondansetron Inj 2 Mg/Ml 2 Ml Vial) 4 mg IV Q6H PRN PRN Reason: Nausea And Vomiting Stop: 06/25/22 12:13 Last Admin: 05/31/22 11:43 Dose: 4 mg Tamsulosin HCl (Tamsulosin Hcl 0.4 Mg Cap) 0.4 mg PO HS REPLACED BY [facility] Stop: 06/24/22 20:59 Last Admin: 05/31/22 21:10 Dose: 0.4 mg Total Time Total Time Spent Total Time Spent (In Minutes): 60 Discharge Plan Discharge Items Patient Disposition: Transfer Acute Care Hospital Reason For Visit: ACUTE HYPOXIC RESP FAILURE, COVIC PNEUMONIA Discharge Diagnosis: Acute hypoxic respiratory failure 2/2 covid pneumonia Acute heart failure exacerbation with ongoing pulmonary edema Acute on chronic kidney disease-improved closer to baseline at time of transfer Ischemic cardiomyopathy with h/o PAF and vfib, EF 20% and ICD 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 given apical LV thrombus rectal cancer with mass s/p XRT and chemo, awaiting surgery ongoing hematochezia and GI blood loss anemia given friable, oozing rectal mass GI blood loss anemia with non-hemolytic RBC transfusion reaction on 05/30 (severe back pain, chills, and hypotension resulted) Obesity MARIANNA on CPAP Activity: Resume your previous activity Non-emergency contact: Primary Care Provider Call non-emergency contact if: you have any medication questions and your pain is worsening Follow-up/Referrals: Titi Rodriguez MD [Primary Care Provider] - Diet: Regular Addtl Attending Provider Instructions: You are being transferred to [facility] for further medical care and evaluation by colorectal surgery. Please follow-up with your primary care physician within one week of discharge from this facility. It was a pleasure taking care of you! Please call if you have any questions or problems. You can reach a [facility] hospitalist on duty at [facility] 24 hours a day by calling [phone]. Take care of yourself. Olamide Chaudhary, DO [facility] Hospitalist Pending Studies at Discharge: No Stand-Alone Forms: My [facility] Skilled Items Patient informed of condition?: Yes DNR: No Discharge Level of Care: Other Communicable Disease: Yes Discharge Prognosis: Stable Lines: Peripheral IV Urinary Catheter: No Medications and DC Order Prescriptions: Continued Vitron-C 65 mg iron- 125 mg tablet,delayed release (DR/EC) 1 tab PO DAILY ondansetron HCl 8 mg tablet 8 mg PO Q8H PRN (Reason: Pain) amiodarone 200 mg Tablet 300 mg PO Q12 Rx Instructions: indiations: noon and midnight hydrocodone-acetaminophen 5-325 mg Tablet 1 tab PO Q6 PRN (Reason: Pain) isosorbide mononitrate 30 mg Tablet Extended Release 24 Hr 30 mg PO QPM levothyroxine 112 mcg tablet 112 mcg PO DAILYBB nitroglycerin [Nitrostat] 0.4 mg Tablet, Sublingual 0.4 mg sublingual UD PRN (Reason: Chest Pain) metoprolol succinate 100 mg Tablet Extended Release 24 Hr 100 mg PO BID ferrous sulfate 325 mg (65 mg iron) Tablet,Delayed Release (Dr/Ec) 325 mg PO DAILY Qty: 30 0RF capecitabine 500 mg tablet 500 mg PO DIRECTED Rx Instructions: START WITH NEXT ROUND OF CHEMO docusate sodium 100 mg Capsule 100 mg PO BID Qty: 60 0RF codeine-guaifenesin 10-100 mg/5 mL Liquid 10 ml PO Q6H PRN (Reason: cough) Qty: 120 0RF Rx Instructions: Caution as this may cause drowsiness. Don't mix with other narcotic medications or alcohol. furosemide 20 mg tablet 40 mg PO DAILY Qty: 60 0RF tamsulosin [Flomax] 0.4 mg capsule 0.4 mg PO HS Qty: 14 0RF hydralazine 25 mg tablet 25 mg PO [facility] Discontinued doxycycline hyclate 100 mg Capsule 100 mg PO BID Qty: 10 0RF amoxicillin 875 mg tablet 875 mg PO BID Qty: 10 0RF warfarin 5 mg tablet 2.5 mg PO DAILY Qty: 30 0RF Rx Instructions: DIRECTED BY [facility]-COAGULATION CL[facility]IC Discharge Orders: Discharge Order (Routine); Ordered 06/01/22 Ordered By: Olamide Chaudhary Admission Data Admit Date/Time: 05/25/22 17:52 Attending Provider: Olamide Chaudhary Admit Provider: Dona Love Primary Care Provider: Titi Rodriguez Other Providers: Neil Harris ; Dona Love ; Kristie Schwarz ; Martin Perea
[2022-06-01 15:24] VITALS: BP 113/64; O2SAT 95
[2022-06-01] MEDS ORDERED: FUROSEMIDE INJ 20 MG/2 ML VIAL IV SCH (17:00)
[2022-06-01 17:24] VITALS: PULSE 61
== END 2022-06-01 20:27 | disposition short-term general hospital (02) | DRG 682 ==
LOC: ED 14:26 → 2E 17:52 → SUATTDRO 17:52 → 2E 19:25 → 1E 05-30 19:28 → 2E 05-31 11:42
DX: I13.0 Hypertensive heart and chronic kidney disease with heart failure and stage 1 through stage 4 chronic kidney disease, or unspecified chronic kidney disease; J15.9 Unspecified bacterial pneumonia; N17.9 Acute kidney failure, unspecified; J12.82 Pneumonia due to coronavirus disease 2019; Z79.01 Long term (current) use of anticoagulants; U07.1 COVID-19; I25.10 Atherosclerotic heart disease of native coronary artery without angina pectoris; E66.9 Obesity, unspecified; C20 Malignant neoplasm of rectum; E03.9 Hypothyroidism, unspecified; N18.30 Chronic kidney disease, stage 3 unspecified; G47.33 Obstructive sleep apnea (adult) (pediatric); Z95.810 Presence of automatic (implantable) cardiac defibrillator; I50.22 Chronic systolic (congestive) heart failure; I25.5 Ischemic cardiomyopathy; Z68.34 Body mass index [BMI] 34.0-34.9, adult; I48.0 Paroxysmal atrial fibrillation; J96.01 Acute respiratory failure with hypoxia; I25.2 Old myocardial infarction